=== PATIENT | male | born 1945 | race Caucasian/White ===

== ENCOUNTER 2017-03-29 13:25 | Day surgery (SDC) | payer MEDICARE, OTHER ==
--- NOTE | 2017-03-29 12:21 | HISTORY & PHYSICAL EXAMINATION ---
HPI - History of Present Illness HPI Comment/Other: Visit Type: Initial Consult History of Present Illness: Pt is here for a Colonoscopy consult- first one. ...................................................................MILLICENT Stephen January 12, 2017 9:39 AM Patient is here for screening colonoscopy. Has history of brain tumor, status post resection and is on multiple anti-siezure medications. Current Meds: LISINOPRIL 10 MG TABS (LISINOPRIL) Take one tablet by mouth daily FLOMAX 0.4 MG CAPS (TAMSULOSIN HCL) Take one capsule by mouth daily for urinary frequency METOPROLOL SUCCINATE ER 25 MG [id number] (METOPROLOL SUCCINATE) Take one half tablet by mouth in the morning and one half tablet by mouth in afternoon METFORMIN HCL 500 MG TABS (METFORMIN HCL) Take two tablets by mouth twice daily GLUCOTROL XL 2.5 MG TB24 (GLIPIZIDE) Take one tablet by mouth every day TOPAMAX 100 MG TABS (TOPIRAMATE) Take one tablet by mouth twice daily LAMICTAL 100 MG TABS (LAMOTRIGINE) Take two tablets by mouth twice daily DILANTIN 100 MG CAPS (PHENYTOIN SODIUM EXTENDED) Take two capsules by mouth in the morning and three capsules by mouth at bedtime LORAZEPAM 1 MG TABS (LORAZEPAM) Take one tablet by mouth daily as needed for seizure KEPPRA 500 MG TABS (LEVETIRACETAM) Take two tablets by mouth twice daily LOVASTATIN 40 MG TABS (LOVASTATIN) Take one tablet by mouth at bedtime ASPIRIN EC 81 MG TBEC (ASPIRIN) Take one tablet by mouth daily JANA CONTOUR TEST STRP (GLUCOSE BLOOD) For use with glucose testing once daily Allergies: Past Medical History: Reviewed history from 03/29/2016 and no changes required: NKDA Malignant glioblastoma, 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 DM CAD Seizure d/o Past Surgical History: Reviewed history from 01/04/2011 and no changes required: Craniotomy for partial removal of brain tumor followed by radiation. Family History Summary: Reviewed history Last on 09/03/2015 and no changes required:01/12/2017 Father (chelle.) - Has a father - Entered On: 08/07/2014 Mother (chelle.) - Has a mother - Entered On: 08/07/2014 Mother (chelle.) - Has Family History of Other Cancer - bone CA - Entered On: 01/12 Father (chelle.) - Has Family History of Other Medical Problems - CHF - Entered On : 01/12/2017 Risk Factors: Smoked Tobacco Use: Never smoker Drug use: no Alcohol use: no Exercise: no Review of Systems See HPI Vital Signs: Problems were reviewed with the patient during this visit. Medications were reviewed with the patient during this visit. Allergies were reviewed with the patient during this visit. No known allergies. Physical Exam General: normal appearance and obese. Mouth: no deformity or lesions with good dentition Lungs: clear bilaterally to A & P Heart: regular rate and rhythm, S1, S2 without murmurs, rubs, gallops, or clicks Abdomen: bowel sounds positive; abdomen soft and non-tender without masses, organomegaly, or hernias noted Pulses: pulses normal in all 4 extremities Extremities: no clubbing, cyanosis, edema, or deformity noted with normal full range of motion of all joints Cervical Nodes: no significant adenopathy Psych: poor concentration and poor memory. Impression & Recommendations: Problem # 1: Screening for colon cancer Will proceed with colonoscopy. All questions and concerns addressed. PMH/PSH - Past Medical History Cardiovascular: positive: Hypertension, High cholesterol Respiratory: positive: None Neuro: positive: None, Seizure disorder Endocrine/Autoimmune: positive: Type 2 diabetes GI: positive: None : positive: None HEENT: positive: None Psych: positive: None Musculoskeletal: positive: None Derm: positive: None MRSA Hx?: No - Past Surgical History Neuro: positive: Craniotomy Social & Family Hx - Social History Does the pt smoke?: No Smoking Status: Never smoker Does the pt drink ETOH?: Yes ETOH Use: Beer Does the pt have substance abuse?: No - POLST Patient has POLST: Yes POLST Status: DNR Meds/Allgy - Home Medications Home Medications: Ambulatory Orders Medication Instructions Recorded Confirmed Aspirin [Aspir 81] 81 mg PO DAILY 05/18/13 03/23/17 Glipizide [Glipizide ER] 2.5 mg PO BID 05/18/13 03/23/17 Levetiracetam [Keppra] 200 mg PO BID 05/18/13 03/23/17 Lisinopril 10 mg PO DAILY 05/18/13 03/23/17 Lovastatin 40 mg PO HS 05/18/13 03/23/17 Metformin HCl [Fortamet] 1,000 mg PO BID 05/18/13 03/23/17 Phenytoin Sodium Extended 200 mg PO DAILY 05/18/13 03/23/17 [Dilantin] Topiramate [Topamax] 100 mg PO BID 05/18/13 03/23/17 lamoTRIgine [LaMICtal] 200 mg PO BID 05/18/13 03/23/17 Metoprolol Succinate 12.5 mg PO BID 03/23/17 03/23/17 Phenytoin Sodium Extended 300 mg PO QPM 03/23/17 03/23/17 Tamsulosin [Flomax] 0.4 mg PO DAILY 03/23/17 03/23/17 - Allergies Allergies/Adverse Reactions: Allergies Allergy/AdvReac Type Severity Reaction Status Date / Time No Known Drug Allergies Allergy Verified 05/18/13 19:47
[2017-03-29] MEDS ORDERED: LACTATED RINGERS 1,000 ML IV ONE (13:33)
[2017-03-29] MEDS ORDERED: PROPOFOL 200 MG/20 ML VIAL IVP ONE (15:10)
[2017-03-29] MEDS ORDERED: MIDAZOLAM 2 MG/2 ML VIAL IVP ONE (15:10)
[2017-03-29] MEDS ORDERED: LIDOCAINE-MPF 2% 5 ML VIAL IM ONE (15:10)
[2017-03-29] MEDS ORDERED: fentaNYL 100 MCG/2 ML VIAL IVP ONE (15:10)
[2017-03-29 15:57] VITALS: BP 124/72
== END 2017-03-29 13:26 | disposition home or self-care (01) ==
LOC: SDS 13:25
PROVIDERS: ATTEND Surgery
PROC: 0DBP8ZZ Excision of Rectum, Via Natural or Artificial Opening Endoscopic (ICD-10-PCS; 2017-03-29)
PROC: 0DBM8ZZ Excision of Descending Colon, Via Natural or Artificial Opening Endoscopic (ICD-10-PCS; 2017-03-29)
PROC: 0DBK8ZZ Excision of Ascending Colon, Via Natural or Artificial Opening Endoscopic (ICD-10-PCS; principal; 2017-03-29 14:45)
DX: Z12.11 Encounter for screening for malignant neoplasm of colon (principal); D12.2 Benign neoplasm of ascending colon; D12.3 Benign neoplasm of transverse colon; D12.4 Benign neoplasm of descending colon; K62.1 Rectal polyp; K64.8 Other hemorrhoids; K64.4 Residual hemorrhoidal skin tags; Z85.841 Personal history of malignant neoplasm of brain; I10 Essential (primary) hypertension; E11.9 Type 2 diabetes mellitus without complications; R56.9 Unspecified convulsions
CPT/HCPCS: 45380; J7120; 88305

== ENCOUNTER 2017-07-10 18:40 | Outpatient (CLI) | payer MEDICARE, OTHER | END 2017-07-10 18:41 | disposition critical access hospital (66) | LOC: EMS 18:40 | PROVIDERS: ATTEND Surgery | DX: S01.81XA Laceration without foreign body of other part of head, initial encounter (principal); R56.9 Unspecified convulsions; W17.89XA Other fall from one level to another, initial encounter; Y92.414 Local residential or business street as the place of occurrence of the external cause | CPT/HCPCS: A0425; A0427 ==

== ENCOUNTER 2017-07-10 18:57 | Emergency (ER) | payer MEDICARE, OTHER ==
[2017-07-10 19:31] LABS: BASOPHILS # (AUTO) 0.1 10^3/uL (0.0-0.1); BASOPHILS % (AUTO) 0.7 %; EOSINOPHILS # (AUTO) 0.2 10^3/uL (0.0-0.7); EOSINOPHILS % (AUTO) 3.2 %; HCT - HEMATOCRIT 42.1 % (42.0-52.0); HGB - HEMOGLOBIN 13.8 g/dL (14.0-18.0); LYMPHOCYTES # (AUTO) 2.1 10^3/uL (1.5-3.5); LYMPHOCYTES % (AUTO) 27.3 %; MEAN CORPUSCULAR HEMOGLOBIN 30.2 pg (27.0-31.0); MEAN CORPUSCULAR HGB CONC 32.9 g/dL (32.0-36.0); MEAN CORPUSCULAR VOLUME 91.8 fL (80.0-94.0); MEAN PLATELET VOLUME 7.5 fL (7.4-11.4); MONOCYTES # (AUTO) 0.9 10^3/uL (0.0-1.0); MONOCYTES % (AUTO) 11.3 %; NEUTROPHILS # (AUTO) 4.4 10^3/uL (1.5-6.6); NEUTROPHILS % (AUTO) 57.5 %; RED BLOOD COUNT 4.58 10^6/uL (4.70-6.10); RED CELL DISTRIBUTION WIDTH 14.5 % (12.0-15.0); UNCORRECTED WHITE BLOOD COUNT 7.6 x10^3/uL; WHITE BLOOD COUNT 7.6 x10^3/uL (4.8-10.8)
[2017-07-10 19:42] LABS: ALBUMIN/GLOBULIN RATIO 0.9 (1.0-2.2); BILIRUBIN,TOTAL 0.4 mg/dL (0.2-1.0); CALCIUM 8.9 mg/dL (8.5-10.3); CREATININE 1.3 mg/dL (0.6-1.2); POTASSIUM 4.3 mmol/L (3.5-5.0); TOTAL PROTEIN 8.1 g/dL (6.7-8.2)
--- NOTE | 2017-07-10 20:13 | CT Preliminary Report ---
Exam: CT Head W/O IMPRESSION: 1. Left forehead hematoma. 2. No acute intracranial abnormality nor bleed. [facility] SITE ID: [id number]
--- NOTE | 2017-07-10 20:20 | CT Preliminary Report ---
Exam: CT Cervical Spine W/O IMPRESSION: 1. No acute bony abnormality. 2. Correlate clinically to determine if further evaluation of the nonspecific 4 cm left thyroid lesio n with thyroid ultrasound indicated. [facility] SITE ID: [id number]
--- NOTE | 2017-07-10 20:23 | CT Report ---
EXAM: CT HEAD EXAM DATE: 07/10/2017 07:45 PM. CLINICAL HISTORY: Remote brain tumor resection. Possible seizure activity. Head trauma. COMPARISON: 05/27/2014. TECHNIQUE: Multiaxial CT images were obtained from the foramen magnum to the vertex. IV contrast: Non e. Reformats: Coronal. In accordance with CT protocol optimization, one or more of the following dose reduction techniques w ere utilized for this exam: automated exposure control, adjustment of mA and/or KV based on patient s ize, or use of iterative reconstructive technique. FINDINGS: Parenchyma: No intra-axial blood products. 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 Remote left frontoparietal craniotomy. Old small vascular insult inferior aspect right cerebellar hemisphere. Extraaxial Spaces: Normal for age. No subdural or epidural collections identified. Ventricles: Compensatory dilatation left lateral ventricle. Stable 3 mm right to left supratentorial midline shift. No inferior transtentorial herniation. No intraventricular blood products. Sinuses: Imaged paranasal sinuses, orbits, and mastoids show no significant abnormality. Bones: Remote large caliber left frontal parietal craniotomy. Other: Diffuse chronic microangiopathic white matter changes are evident. 8 mm thick subgaleal hematoma over a 3 cm diameter left forehead scalp. IMPRESSION: 1. Left forehead hematoma. 2. No acute intracranial abnormality nor bleed. [facility] Referring Provider Line: [phone] SITE ID: [id number]
--- NOTE | 2017-07-10 20:23 | XRAY Preliminary Report ---
Exam: XR Hand 2 View RT IMPRESSION: No acute bony abnormality. [facility] SITE ID: [id number]
--- NOTE | 2017-07-10 20:26 | XRAY Preliminary Report ---
Exam: XR Chest 1 View IMPRESSION: Probable infiltrate or mass left midlung. Recommend further attention to this region with a repeat portable study when the patient is stabilized and able to be taken off the backboard. [facility] SITE ID: [id number]
--- NOTE | 2017-07-10 20:29 | XRAY Report ---
EXAM: RIGHT HAND RADIOGRAPHY EXAM DATE: 07/10/2017 07:39 PM. CLINICAL HISTORY: Pain after fall. Possible seizure activity. COMPARISON: None. TECHNIQUE: 2 views. FINDINGS: Bones: Old ununited fracture involving the central aspect of the ulnar styloid process, with 2 mm dis traction. Trabecular and cortical patterns are otherwise intact. Joints: Normal. No subluxations. Soft Tissues: Normal. No soft tissue swelling. IMPRESSION: No acute bony abnormality. [facility] Referring Provider Line: [phone] SITE ID: [id number]
--- NOTE | 2017-07-10 20:29 | CT Report ---
EXAM: CT CERVICAL SPINE WITHOUT CONTRAST DATE: 07/10/2017 07:44 PM HISTORY: Remote brain tumor resection. Possible seizure activity. Fall with left forehead trauma. Alt ered mental status. Headache. Neck pain. COMPARISONS: None. TECHNIQUE: Thin-section axial images were acquired of the cervical spine without contrast. Post-proce ssing: Coronal and sagittal reformats. Other: None. In accordance with CT protocol optimization, one or more of the following dose reduction techniques w ere utilized for this exam: automated exposure control, adjustment of mA and/or KV based on patient s ize, or use of iterative reconstructive technique. FINDINGS: Alignment: Normal. No scoliosis or spondylolisthesis. Bones: No fracture or bone lesion. Interspace Levels/Facets: Multilevel mild degenerative changes throughout the cervical spine, less than expected for age. Greatest degree of central spinal canal stenosis is borderline at the C4-C5 level. Multilevel mild to marked bony neural foraminal compromise. Musculature: Normal. No fatty atrophy. Other: 4 cm nonspecific low-density lesion within the left lobe of the thyroid. 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 Postoperative changes left cerebral hemisphere partially visualized. IMPRESSION: 1. No acute bony abnormality. 2. Correlate clinically to determine if further evaluation of the nonspecific 4 cm left thyroid lesio n with thyroid ultrasound indicated. [facility] Referring Provider Line: [phone] SITE ID: [id number]
--- NOTE | 2017-07-10 20:30 | XRAY Report ---
EXAM: CHEST RADIOGRAPHY EXAM DATE: 07/10/2017 07:39 PM. CLINICAL HISTORY: Fall. Possible seizure activity. Altered mental status. Remote resection of a brain tumor. COMPARISON: 12/29/2010.. TECHNIQUE: 1 view. FINDINGS: Lungs/Pleura: Density or infiltrate involving the mid third left lung. Extensive overlying stabilizat ion artifacts. Right lung is clear. Normal lung volumes. No effusion, vascular congestion or pneumoth orax. Mediastinum: Within exam limitations, cardiomediastinal contour is normal. Other: None. IMPRESSION: Probable infiltrate or mass left midlung. Recommend further attention to this region with a repeat portable study when the patient is stabilized and able to be taken off the backboard. [facility] Referring Provider Line: [phone] SITE ID: [id number]
[2017-07-10 20:57] LABS: BILIRUBIN,URINE NEGATIVE (NEGATIVE)
[2017-07-10] MEDS ORDERED: PHENYTOIN INJ 500 MG in SODIUM CHLORIDE 0.9% 100ML 100 ML IV STA (21:00)
[2017-07-10 21:01] LABS: UA CHARGE (STRIP ONLY) YES; UR CULTURE IF IND NOT INDICATED
[2017-07-10] MEDS ORDERED: PHENYTOIN 100 MG/2 ML VIAL IVP ONE (21:10)
--- NOTE | 2017-07-10 22:03 | XRAY Preliminary Report ---
Exam: XR Chest 2 View PA/LAT IMPRESSION: Dextroscoliosis, otherwise unremarkable 2-view chest radiography. [facility] SITE ID: [id number]
--- NOTE | 2017-07-10 22:05 | XRAY Report ---
EXAM: CHEST RADIOGRAPHY EXAM DATE: 07/10/2017 09:49 PM. CLINICAL HISTORY: Left midlung mass/infiltrate suspected on AP supine film. COMPARISON: Today at 1938. TECHNIQUE: 2 views. FINDINGS: Lungs/Pleura: No focal opacities evident. No pleural effusion. No pneumothorax. Normal volumes. Mediastinum: Heart and mediastinal contours are unremarkable. Other: Dextroscoliosis. No focal bony abnormality identified. IMPRESSION: Dextroscoliosis, otherwise unremarkable 2-view chest radiography. [facility] Referring Provider Line: [phone] SITE ID: [id number]
[2017-07-10] MEDS ORDERED: BUFFERED LIDOCAINE 10 ML SYRINGE SUBQ STA (22:09)
[2017-07-10] MEDS ORDERED: BUFFERED LIDOCAINE 10 ML SYRINGE ONE (22:32)
--- NOTE | 2017-07-10 22:40 | ED Physician Documentation ---
History of Present Illness - Stated complaint Stated Complaint: SEIZURE - Chief complaint Chief Complaint: Laceration - History obtained from History obtained from: Patient - Additonal information Additional information: Patient is a 71-year-old male with a history of seizure disorder on Lamictal, Keppra, and Dilantin. The seizure as a consequence of a benign tumor removed 10 years ago. Other than the seizures in the brain tumor he has a history of diabetes and is on metformin. He presents with a complaint of a closed head injury. The patient was left alone in a car and it is unclear whether he had a seizure and fell from a car or whether he fell from a car and had a seizure. He was either knocked out or postictal afterward was transported to our facility by EMS in cervical spine and backboard precautions. Review of systems: For pertinent positive and negatives in the review of systems please see the history of present illness, otherwise all other systems have been reviewed and are negative. Dragon disclaimer: Parts of this medical record were created using voice recognition technology. Because of the inherent limitations of this system, occasional same sounding word substitutions do occur and persist despite proofreading. Please read the document for context. Review of Systems Unable to obtain: Confused PD PAST MEDICAL HISTORY - Past Medical History Past Medical History: Yes Cardiovascular: Hypertension, High cholesterol Respiratory: None Neuro: None, Seizure disorder Endocrine/Autoimmune: Type 2 diabetes GI: None : None HEENT: None Psych: None Musculoskeletal: None Derm: None - Past Surgical History Past Surgical History: Yes Neuro: Craniotomy - Present Medications Home Medications: Ambulatory Orders Medication Instructions Recorded Confirmed Glipizide [Glipizide ER] 2.5 mg PO BID 05/18/13 07/10/17 Levetiracetam [Keppra] 200 mg PO BID 05/18/13 07/10/17 Lisinopril 10 mg PO DAILY 05/18/13 07/10/17 Lovastatin 40 mg PO HS 05/18/13 07/10/17 Metformin HCl [Fortamet] 1,000 mg PO BID 05/18/13 07/10/17 Phenytoin Sodium Extended 200 mg PO DAILY 05/18/13 07/10/17 [Dilantin] lamoTRIgine [LaMICtal] 200 mg PO BID 05/18/13 07/10/17 Phenytoin Sodium Extended 300 mg PO QPM 03/23/17 07/10/17 Tamsulosin [Flomax] 0.4 mg PO DAILY 03/23/17 07/10/17 Levetiracetam [Keppra] 1,000 mg PO QPM 07/10/17 07/10/17 Lovastatin 40 mg PO DAILY 07/10/17 07/10/17 - Allergies Allergies/Adverse Reactions: Allergies Allergy/AdvReac Type Severity Reaction Status Date / Time No Known Drug Allergies Allergy Verified 07/10/17 20:17 - Social History Does the pt smoke?: No Smoking Status: Never smoker Does the pt drink ETOH?: Yes Does the pt have substance abuse?: No - Immunizations Immunizations are current?: Yes - POLST Patient has POLST: Yes POLST Status: DNR PD ED PE NORMAL - Vitals Vital signs reviewed: Yes - General General: Well developed/nourished, Other (Large habitus male lying in the bed. The patient appears either postictal or or concussed. He has his eyes open he is not speaking he is moving everything and following simple commands he does have a large frontal cephalohematoma on the left with abrasions of the forehead periorbital area and adjacent to the left nare. Eyes are equal round react light oromucosa moist TMs clear without blood no styles sign neck is restrained) - Neck Neck: Supple, no meningeal sign - Cardiac Cardiac: RRR, No murmur, No gallop, No rub - Respiratory Respiratory: No respiratory distress, Clear bilaterally - Abdomen Abdomen: Normal bowel sounds, Soft, Non tender, Non distended - Derm Derm: Normal color, Warm and dry, No rash, Other - Extremities Extremities: No deformity, No tenderness to palpate (Superficial abrasion to the dorsum of the right hand) - Neuro Neuro: Alert and oriented X 3, sales solutions representative 2-12 intact, No motor deficit, No sensory deficit - Psych Psych: Normal mood, Normal affect Results - Vitals Vitals: Vital Signs - 24 hr 07/10/17 07/10/17 07/10/17 18:59 19:12 19:40 Temperature 37.3 C Heart Rate 119 H 111 H 113 H Respiratory 24 21 14 Rate Blood Pressure 130/63 136/62 H 133/67 H O2 Saturation 88 L 95 96 07/10/17 07/10/17 07/10/17 19:52 20:05 20:23 Temperature Heart Rate 109 H 104 H 97 Respiratory 20 16 20 Rate Blood Pressure 124/62 114/72 125/67 O2 Saturation 95 95 95 07/10/17 07/10/17 21:00 22:00 Temperature Heart Rate 91 86 Respiratory 22 22 Rate Blood Pressure 126/65 127/67 O2 Saturation 97 96 Oxygen O2 Source Room air Oxygen Flow Rate 3 - Labs Labs: Laboratory Tests 07/10/17 07/10/17 07/10/17 19:20 19:20 19:20 WBC 7.6 RBC 4.58 L Hgb 13.8 L Hct 42.1 MCV 91.8 MCH 30.2 MCHC 32.9 RDW 14.5 Plt Count 239 MPV 7.5 Neut # 4.4 Lymph # 2.1 [place] # 0.9 Eos # 0.2 Baso # 0.1 Absolute Nucleated RBC 0.00 Nucleated RBCs 0.0 PT 11.0 INR 1.0 Sodium 136 Potassium 4.3 Chloride 104 Carbon Dioxide 19 L Anion Gap 13.0 BUN 22 H Creatinine 1.3 H Estimated GFR (MDRD) 55 L Glucose 158 H Calcium 8.9 Total Bilirubin 0.4 AST 26 ALT 31 Alkaline Phosphatase 70 Total Protein 8.1 Albumin 3.9 Globulin 4.2 Albumin/Globulin Ratio 0.9 L Lipase 53 H Urine Color Urine Clarity Urine pH Ur Specific [place] Urine Protein Urine Glucose (UA) Urine Ketones Urine Occult Blood Urine Nitrite Urine Bilirubin Urine Urobilinogen Ur Leukocyte Esterase Ur Microscopic Review Urine Culture Comments Phenytoin 10.1 07/10/17 20:40 WBC RBC Hgb Hct MCV MCH MCHC RDW Plt Count MPV Neut # Lymph # [place] # Eos # Baso # Absolute Nucleated RBC Nucleated RBCs PT INR Sodium Potassium Chloride Carbon Dioxide Anion Gap BUN Creatinine Estimated GFR (MDRD) Glucose Calcium Total Bilirubin AST ALT Alkaline Phosphatase Total Protein Albumin Globulin Albumin/Globulin Ratio Lipase Urine Color YELLOW Urine Clarity CLEAR Urine pH 6.0 Ur Specific [place] 1.025 Urine Protein NEGATIVE Urine Glucose (UA) NEGATIVE Urine Ketones NEGATIVE Urine Occult Blood NEGATIVE Urine Nitrite NEGATIVE Urine Bilirubin NEGATIVE Urine Urobilinogen 0.2 (NORMAL) Ur Leukocyte Esterase NEGATIVE Ur Microscopic Review NOT INDICATED Urine Culture Comments NOT INDICATED Phenytoin PD MEDICAL DECISION MAKING - ED course Complexity details: reviewed old records, reviewed results, re-evaluated patient , d/w patient ED course: Pleasant 71-year-old male with a history of a seizure disorder on 3 different anticonvulsants. We suspect he probably had a seizure and fell out of the truck sustaining a closed head injury. Initially he was altered with her was due to concussion or postictal state is unclear. He was taken emergently to CT scan and had a CT scan of his head and neck. These images do not show any evidence of any acute abnormality. A chest x-ray is also taken initially showed a nodule then repeated once his cervical spine is cleared and is negative. X-rays of his hand are normal. The patient did well clinically he woke up and was conversive and had a normal neurologic exam. He was found to be slightly low and Dilantin was given a boost dose of Dilantin intravenously. His wounds were cleansed and addressed. I did place 3 single interrupted sutures in the left forehead while there was a jagged 1.5 cm laceration. The patient tolerated the sutures without any difficulty 3 single interrupted sutures of 5-0 Vicryl were placed. The patient's doing well at this point in time will be discharged home is not on any anticoagulant medication. Disposition: To home Clinical impression: 1. Probable seizure 2. Subtherapeutic Dilantin level 3. Left forehead abrasion contusion and 1.5 cm laceration status post 3 sutures 4. Right hand abrasion
[2017-07-11 00:58] VITALS: BP 118/67
== END 2017-07-11 01:15 | disposition home or self-care (01) ==
LOC: EDUNIT# → ED 18:57
DX: S00.83XA Contusion of other part of head, initial encounter (principal); S60.221A Contusion of right hand, initial encounter; S00.81XA Abrasion of other part of head, initial encounter; W17.89XA Other fall from one level to another, initial encounter; G40.909 Epilepsy, unspecified, not intractable, without status epilepticus; E11.9 Type 2 diabetes mellitus without complications; Z79.84 Long term (current) use of oral hypoglycemic drugs; E78.00 Pure hypercholesterolemia, unspecified
CPT/HCPCS: 36415; 70450; 71010; 71020; 72125; 80053; 80185; 81001; 81003; 83690; 85025; 85610; 87086; 93005; 96365; 99284; 99285

== ENCOUNTER 2017-07-24 08:00 | Outpatient (CLI) | payer MEDICARE, OTHER ==
[2017-07-24 19:26] LABS: BILIRUBIN,TOTAL 0.5 mg/dL (0.2-1.0); BUN - BLOOD UREA NITROGEN 18 mg/dL (6-20); CALCIUM 9.3 mg/dL (8.5-10.3); CARBON DIOXIDE - CO2 25 mmol/L (21-32); CHLORIDE 104 mmol/L (101-111); CHOL/HDL RATIO 3.1 (<5.0); CHOLESTEROL 135 mg/dL; GFR - MDRD 74 (>89); GLUCOSE 112 mg/dL (70-100); HDL CHOLESTEROL 44 mg/dL; HEMOGLOBIN A1C 0.66 g/dL; LDL/HDL RATIO 1.6 (<3.6); POTASSIUM 5.1 mmol/L (3.5-5.0); SODIUM 136 mmol/L (135-145); TOTAL PROTEIN 8.4 g/dL (6.7-8.2); TRIGLYCERIDES 94 mg/dL; VLDL CHOLESTEROL 19 mg/dL
[2017-07-25 06:51] LABS: TEST RESULT REPORT (())
== END 2017-07-24 08:01 | disposition home or self-care (01) ==
LOC: LAB.WCP 08:00
PROVIDERS: ATTEND Physician Assistant Medical
DX: E11.9 Type 2 diabetes mellitus without complications (principal); R56.9 Unspecified convulsions
CPT/HCPCS: 36415; 80053; 80061; 80185; 81599; 83036

== ENCOUNTER 2017-10-02 11:51 | Outpatient (CLI) | payer MEDICARE, OTHER | END 2017-10-02 11:52 | disposition critical access hospital (66) | LOC: EMS 11:51 | PROVIDERS: ATTEND Surgery | DX: R56.9 Unspecified convulsions (principal) | CPT/HCPCS: A0425; A0429 ==

== ENCOUNTER 2017-10-02 12:10 | Emergency (ER) | payer MEDICARE, OTHER ==
--- NOTE | 2017-10-02 12:19 | ED Physician Documentation ---
PD HPI ALTERED MENTAL STATUS - Stated complaint Stated Complaint: AMS - History obtained from History obtained from: Patient, Family (Daughter Kelsey by phone, cell in chart, work phone is ), EMS - History of Present Illness Timing - onset: Other (He has longstanding sz D/O maintained on dilantin, keppra , lamictal after remote brain tumor removal. Had mult seizures on Thanks[place] and seen in [place], was given IV dilantin, presume for subtherapeutic level. Since then has been weak and urinating a lot. Today with poss seizure, was altered but now on arrival is without complaint, A/O x2 and joking, sounds like he is at his baseline. Per daughter dilantin level was about 6 on gi, labs done yesterday at [facility], Alysia Deshpande, results now unknown. Walks unassisted at baseline.) Review of Systems Unable to obtain: Confused PD PAST MEDICAL HISTORY - Past Medical History Cardiovascular: Hypertension, High cholesterol Respiratory: None Neuro: None, Seizure disorder Endocrine/Autoimmune: Type 2 diabetes GI: None : None HEENT: None Psych: None Musculoskeletal: None Derm: None - Past Surgical History Past Surgical History: Yes Neuro: Craniotomy - Present Medications Home Medications: Ambulatory Orders Medication Instructions Recorded Confirmed Glipizide [Glipizide ER] 2.5 mg PO BID 05/18/13 07/10/17 Levetiracetam [Keppra] 200 mg PO BID 05/18/13 07/10/17 Lisinopril 10 mg PO DAILY 05/18/13 07/10/17 Lovastatin 40 mg PO HS 05/18/13 07/10/17 Metformin HCl [Fortamet] 1,000 mg PO BID 05/18/13 07/10/17 Phenytoin Sodium Extended 200 mg PO DAILY 05/18/13 07/10/17 [Dilantin] lamoTRIgine [LaMICtal] 200 mg PO BID 05/18/13 07/10/17 Phenytoin Sodium Extended 300 mg PO QPM 03/23/17 07/10/17 Tamsulosin [Flomax] 0.4 mg PO DAILY 03/23/17 07/10/17 HYDROcod/ACETAM 5/325 [[place] 5/325] 1 - 2 ea PO Q6H PRN #15 tablet 07/10/17 Levetiracetam [Keppra] 1,000 mg PO QPM 07/10/17 07/10/17 Lovastatin 40 mg PO DAILY 07/10/17 07/10/17 - Allergies Allergies/Adverse Reactions: Allergies Allergy/AdvReac Type Severity Reaction Status Date / Time No Known Drug Allergies Allergy Verified 07/10/17 20:17 - Social History Does the pt smoke?: No Smoking Status: Never smoker Does the pt drink ETOH?: Yes Does the pt have substance abuse?: No - Family History Family history: reports: Non contributory - Immunizations Immunizations are current?: Yes - POLST Patient has POLST: Yes POLST Status: DNR PD ED PE NORMAL - Vitals Vital signs reviewed: Yes - General General: No acute distress, Other (A/O x2, ) - HEENT HEENT: PERRL, EOMI - Neck Neck: Supple, no meningeal sign, No bony TTP - Cardiac Cardiac: RRR, No murmur - Respiratory Respiratory: No respiratory distress, Clear bilaterally - Abdomen Abdomen: Normal bowel sounds, Soft, Non tender - Back Back: No CVA TTP, No spinal TTP - Derm Derm: Normal color, Warm and dry - Extremities Extremities: No edema, No calf tenderness / cord - Neuro Neuro: methods time analyst 2-12 intact, No motor deficit, No sensory deficit, Normal speech Eye Opening: Spontaneous Motor: Obeys Commands Verbal: Oriented GCS Score: 15 - Psych Psych: Normal mood, Normal affect Results - Vitals Vitals: Vital Signs - 24 hr 10/02/17 10/02/17 10/02/17 12:15 13:23 14:12 Temperature 36.5 C 36.8 C Heart Rate 69 91 86 Respiratory 21 18 14 Rate Blood Pressure 147/69 H 115/63 O2 Saturation 97 94 10/02/17 10/02/17 10/02/17 15:02 16:09 16:30 Temperature Heart Rate 103 H 93 94 Respiratory 15 18 14 Rate Blood Pressure 96/54 L 129/54 L O2 Saturation 96 98 Oxygen O2 Source Room air - EKG (time done) 1356 Rate: Rate (enter#) (98) Rhythm: NSR Ischemia: Other (diffuse hyperacute T waves, almost sine waves c/w hyperkalemia) Computer interpretation: Agree with computer - Labs Labs: Laboratory Tests 10/02/17 10/02/17 10/02/17 13:00 13:26 13:26 WBC 9.2 RBC 4.94 Hgb 14.9 Hct 44.6 MCV 90.3 MCH 30.2 MCHC 33.4 RDW 15.0 Plt Count 117 L MPV 8.2 Neut # 6.6 Lymph # 1.2 L Moca # 1.3 H Eos # 0.1 Baso # 0.0 Absolute Nucleated RBC 0.00 Nucleated RBC % 0.0 Sodium 133 L Potassium 7.9 H* Chloride 98 L Carbon Dioxide 13 L Anion Gap 22.0 H BUN 81 H* Creatinine 9.4 H* Estimated GFR (MDRD) 6 L Glucose 71 Calcium 9.3 Total Bilirubin 0.6 AST 18 ALT 22 Alkaline Phosphatase 64 Total Protein 8.5 H Albumin 3.9 Globulin 4.6 H Albumin/Globulin Ratio 0.8 L Lipase 167 H Urine Color YELLOW Urine Clarity CLEAR Urine pH 6.0 Ur Specific [place] 1.015 Urine Protein NEGATIVE Urine Glucose (UA) NEGATIVE Urine Ketones NEGATIVE Urine Occult Blood TRACE-INTA Urine Nitrite NEGATIVE Urine Bilirubin NEGATIVE Urine Urobilinogen 0.2 (NORMAL) Ur Leukocyte Esterase NEGATIVE Ur Microscopic Review NOT INDICATED Urine Culture Comments NOT INDICATED Urine Opiates Screen NEGATIVE Ur Oxycodone Screen NEGATIVE Urine Methadone Screen NEGATIVE Ur Propoxyphene Screen NEGATIVE Ur Barbiturates Screen POSITIVE H Phenytoin 20.7 Ur Tricyclics Screen NEGATIVE Ur Phencyclidine Scrn NEGATIVE Ur Amphetamine Screen NEGATIVE U Methamphetamines Scrn NEGATIVE U Benzodiazepines Scrn POSITIVE H Urine Cocaine Screen NEGATIVE U Cannabinoids Screen NEGATIVE Ethyl Alcohol < 5.0 10/02/17 10/02/17 14:20 15:26 WBC RBC Hgb Hct MCV MCH MCHC RDW Plt Count MPV Neut # Lymph # Moca # Eos # Baso # Absolute Nucleated RBC Nucleated RBC % Sodium 131 L 133 L Potassium 6.8 H* 6.3 H* Chloride 102 105 Carbon Dioxide 14 L 12 L* Anion Gap 15.0 H 16.0 H BUN 67 H 70 H Creatinine 6.4 H 7.0 H* Estimated GFR (MDRD) 9 L 8 L Glucose 218 H 183 H Calcium 8.8 8.7 Total Bilirubin AST ALT Alkaline Phosphatase Total Protein Albumin Globulin Albumin/Globulin Ratio Lipase Urine Color Urine Clarity Urine pH Ur Specific [place] Urine Protein Urine Glucose (UA) Urine Ketones Urine Occult Blood Urine Nitrite Urine Bilirubin Urine Urobilinogen Ur Leukocyte Esterase Ur Microscopic Review Urine Culture Comments Urine Opiates Screen Ur Oxycodone Screen Urine Methadone Screen Ur Propoxyphene Screen Ur Barbiturates Screen Phenytoin Ur Tricyclics Screen Ur Phencyclidine Scrn Ur Amphetamine Screen U Methamphetamines Scrn U Benzodiazepines Scrn Urine Cocaine Screen U Cannabinoids Screen Ethyl Alcohol PD MEDICAL DECISION MAKING - ED course ED course: 71-year-old gentleman with chronic neurologic problems and seizures presents with weakness and potential seizure today although not clearly reported. Per the daughter he has been having complaints of Having to pee a lot and bladder scan showed greater than 999 mL's. A Hooker was placed and initial output was 1600 mL. Labs are notable for acute renal failure with hyperkalemia. At that point therapy was begun an EKG was placed showing changes consistent with hyperkalemia. He received IV calcium, insulin, glucose, bicarb drip, and albuterol. I spoke with the daughter several times by phone, initially we tried to send him to [place] but they were full, second choice was [facility], that is where his neurologist was. Spoke with Dr. hart, the medical intensive care unit attending there at 3:25 PM he would like to see a second potassium done in lower prior to excepting the patient in transfer. This is already pending. The second potassium was much better, 6.3. Dr. hart was spoken with again and accepts in transfer, would like a third round checked. This was done and had trended up a bit to 6.8, a second round of insulin, calcium, glucose, albuterol was given. - Critical Care Time(min): 50 Time Includes: Direct patient care, Review records, Reassess patient, Document care, Coordinate care, Medical consult, Family consult for tx dec (Multiple conversations with daughter and by phone, the is available at [phone].) Departure - Departure Disposition: 02 Transfer Acute Care Hosp Clinical Impression: Hyperkalemia, Urinary obstruction ARF (acute renal failure) Qualifiers: Acute renal failure type: unspecified Qualified Code(s): N17.9 - Acute kidney failure, unspecified Condition: Critical
[2017-10-02] MEDS ORDERED: LIDOCAINE JELLY 2% 5 ML TUBE TOP ONE (12:58)
[2017-10-02 13:11] LABS: BILIRUBIN,URINE NEGATIVE (NEGATIVE)
[2017-10-02 13:12] LABS: UA CHARGE (STRIP ONLY) YES; UR CULTURE IF IND NOT INDICATED
[2017-10-02 13:32] LABS: BASOPHILS % (AUTO) 0.1 %; EOSINOPHILS # (AUTO) 0.1 10^3/uL (0.0-0.7); EOSINOPHILS % (AUTO) 0.7 %; HCT - HEMATOCRIT 44.6 % (42.0-52.0); HGB - HEMOGLOBIN 14.9 g/dL (14.0-18.0); LYMPHOCYTES # (AUTO) 1.2 10^3/uL (1.5-3.5); LYMPHOCYTES % (AUTO) 13.5 %; MEAN CORPUSCULAR HEMOGLOBIN 30.2 pg (27.0-31.0); MEAN CORPUSCULAR HGB CONC 33.4 g/dL (32.0-36.0); MEAN CORPUSCULAR VOLUME 90.3 fL (80.0-94.0); MEAN PLATELET VOLUME 8.2 fL (7.4-11.4); MONOCYTES # (AUTO) 1.3 10^3/uL (0.0-1.0); MONOCYTES % (AUTO) 14.2 %; NEUTROPHILS # (AUTO) 6.6 10^3/uL (1.5-6.6); NEUTROPHILS % (AUTO) 71.5 %; RED BLOOD COUNT 4.94 10^6/uL (4.70-6.10); UNCORRECTED WHITE BLOOD COUNT 9.2 x10^3/uL; WHITE BLOOD COUNT 9.2 x10^3/uL (4.8-10.8)
[2017-10-02 13:51] LABS: ALBUMIN/GLOBULIN RATIO 0.8 (1.0-2.2); BILIRUBIN,TOTAL 0.6 mg/dL (0.2-1.0); CALCIUM 9.3 mg/dL (8.5-10.3); CARBON DIOXIDE - CO2 13 mmol/L (21-32); CHLORIDE 98 mmol/L (101-111); GFR - MDRD 6 (>89); GLUCOSE 71 mg/dL (70-100); LIPASE 167 U/L (22-51); SODIUM 133 mmol/L (135-145); TOTAL PROTEIN 8.5 g/dL (6.7-8.2)
[2017-10-02] MEDS ORDERED: SODIUM CHLORIDE 0.9% 1,000 ML IV ONE (13:54)
[2017-10-02] MEDS ORDERED: DEXTROSE 50% ABBOJECT 25 GM/50 ML SYRINGE IVP STA ×2 (13:55→16:04)
[2017-10-02] MEDS ORDERED: CALCIUM GLUCONATE 1000 MG/10 ML VIAL IVP STA ×2 (13:55→16:04)
[2017-10-02] MEDS ORDERED: INSULIN REGULAR HUMAN 100 UNIT/1 ML 10 ML MDV IVP STA ×2 (13:55→16:04)
[2017-10-02] MEDS ORDERED: ALBUTEROL NEB 2.5 MG/3 ML INH STA (13:55)
[2017-10-02] MEDS ORDERED: SODIUM BICARBONATE 100 MEQ in DEXTROSE 5% 1,000 ML IV SCH (14:00)
[2017-10-02 14:04] LABS: BUN - BLOOD UREA NITROGEN 81 mg/dL (6-20)
[2017-10-02 14:05] LABS: CREATININE 9.4 mg/dL (0.6-1.2); POTASSIUM 7.9 mmol/L (3.5-5.0)
[2017-10-02] MEDS ORDERED: ALBUTEROL NEB 2.5 MG/3 ML INH ONE ×3 (14:07→16:30)
[2017-10-02] MEDS ORDERED: CALCIUM GLUCONATE 1000 MG/10 ML VIAL ONE ×2 (14:12→16:42)
[2017-10-02] MEDS ORDERED: DEXTROSE 50% ABBOJECT 25 GM/50 ML SYRINGE ONE ×2 (14:13→16:42)
[2017-10-02] MEDS ORDERED: INSULIN 70/30 HUMAN 100 UNIT/1 ML 10 ML MDV SUBQ ONE (14:13)
[2017-10-02] MEDS: ALBUTEROL NEB 2.5 MG/3 ML INH STA ×2 (14:17→16:27)
[2017-10-02 15:46] LABS: CALCIUM 8.7 mg/dL (8.5-10.3)
[2017-10-02 15:48] LABS: POTASSIUM 6.3 mmol/L (3.5-5.0)
[2017-10-02 16:36] LABS: CALCIUM 8.8 mg/dL (8.5-10.3); CREATININE 6.4 mg/dL (0.6-1.2); POTASSIUM 6.8 mmol/L (3.5-5.0)
[2017-10-02] MEDS ORDERED: INSULIN REGULAR HUMAN 100 UNIT/1 ML 10 ML MDV ONE (16:43)
[2017-10-02 16:55] VITALS: BP 135/50
== END 2017-10-02 17:25 | disposition short-term general hospital (02) ==
LOC: EDUNIT# → ED 12:10
DX: E87.5 Hyperkalemia (principal); N13.9 Obstructive and reflux uropathy, unspecified; N17.9 Acute kidney failure, unspecified; I10 Essential (primary) hypertension; E11.9 Type 2 diabetes mellitus without complications; E78.00 Pure hypercholesterolemia, unspecified; Z79.84 Long term (current) use of oral hypoglycemic drugs
CPT/HCPCS: 36415; 51702; 51798; 80048; 80053; 80185; 80306; 81003; 83690; 85025; 93005; 94664; 96361; 96374; 99285; 99291; G0480; J3490; J7613; 80320; 81001; 87086

== ENCOUNTER 2017-10-13 07:40 | Outpatient (CLI) | payer MEDICARE, OTHER ==
[2017-10-13 13:16] LABS: CALCIUM 9.4 mg/dL (8.5-10.3); CREATININE 1.3 mg/dL (0.6-1.2); POTASSIUM 5.4 mmol/L (3.5-5.0)
== END 2017-10-13 23:59 | disposition home or self-care (01) ==
LOC: LAB.R 07:40
DX: I10 Essential (primary) hypertension (principal)
CPT/HCPCS: 80048

== ENCOUNTER 2017-10-15 08:00 | Outpatient (CLI) | payer MEDICARE, OTHER | END 2017-10-15 08:01 | disposition home or self-care (01) | LOC: LAB.R 08:00 | DX: R56.9 Unspecified convulsions (principal) | CPT/HCPCS: 80185; 80186; 81599 ==

== ENCOUNTER 2017-11-05 08:00 | Outpatient (CLI) | payer MEDICARE, OTHER ==
[2017-11-05 11:01] LABS: BASOPHILS # (AUTO) 0.1 10^3/uL (0.0-0.1); BASOPHILS % (AUTO) 0.6 %; HGB - HEMOGLOBIN 13.5 g/dL (14.0-18.0); LYMPHOCYTES # (AUTO) 1.3 10^3/uL (1.5-3.5); LYMPHOCYTES % (AUTO) 6.4 %; MEAN PLATELET VOLUME 7.6 fL (7.4-11.4); MONOCYTES # (AUTO) 2.6 10^3/uL (0.0-1.0); MONOCYTES % (AUTO) 12.2 %; NEUTROPHILS # (AUTO) 17.2 10^3/uL (1.5-6.6); NEUTROPHILS % (AUTO) 80.8 %; PLT - PLATELET COUNT 324 10^3/uL (130-450); RED BLOOD COUNT 4.64 10^6/uL (4.70-6.10); RED CELL DISTRIBUTION WIDTH 14.9 % (12.0-15.0); WHITE BLOOD COUNT 21.2 x10^3/uL (4.8-10.8)
[2017-11-05 11:04] LABS: CREATININE 1.2 mg/dL (0.6-1.2)
[2017-11-05 11:22] LABS: PLATELET ESTIMATE, MANUAL NORMAL (130-450,000) (NORMAL); PLATELET MORPHOLOGY NORMAL APPEARANCE (NORMAL); RBC MORPHOLOGY (MULTIPLE) NORMAL APPEARANCE (NORMAL)
== END 2017-11-05 08:01 | disposition home or self-care (01) ==
LOC: LAB.R 08:00
DX: I25.10 Atherosclerotic heart disease of native coronary artery without angina pectoris (principal); I10 Essential (primary) hypertension; J10.1 Influenza due to other identified influenza virus with other respiratory manifestations; N39.0 Urinary tract infection, site not specified
CPT/HCPCS: 80048; 81001; 81003; 85025; 87086; 87275; 87276

== ENCOUNTER 2017-11-05 17:16 | Outpatient (CLI) | payer MEDICARE, OTHER | END 2017-11-05 17:17 | disposition critical access hospital (66) | LOC: EMS 17:16 | PROVIDERS: ATTEND Surgery | DX: R46.89 Other symptoms and signs involving appearance and behavior (principal) | CPT/HCPCS: A0425; A0429 ==

== ENCOUNTER 2017-11-05 17:34 | Inpatient (IN) | payer MEDICARE, OTHER ==
[2017-11-05] MEDS ORDERED: LACTATED RINGERS 1,000 ML IV STA (17:43)
[2017-11-05] MEDS ORDERED: SODIUM CHLORIDE 0.9% 1,000 ML IV ONE (17:43)
--- NOTE | 2017-11-05 17:50 | ED Physician Documentation ---
PD HPI FEVER - Stated complaint Stated Complaint: FEVER - History obtained from History obtained from: Patient, EMS - History of Present Illness Timing - onset: Other (He is a resident of [facility], he has a long- standing seizure disorder and a brain tumor. He was sent in because he had a fever today. He did outpatient labs notable for a white count 21,000. Flu is negative. He has a Hooker in place because of recent urinary retention. He is an unreliable historian due to chronic altered mental status.) Review of Systems Unable to obtain: Confused PD PAST MEDICAL HISTORY - Past Medical History Cardiovascular: Hypertension, High cholesterol Respiratory: None Neuro: None, Seizure disorder Endocrine/Autoimmune: Type 2 diabetes GI: None : None HEENT: None Psych: None Musculoskeletal: None Derm: None - Past Surgical History Past Surgical History: Yes Neuro: Craniotomy - Present Medications Home Medications: Ambulatory Orders Medication Instructions Recorded Confirmed Glipizide [Glipizide ER] 2.5 mg PO BID 05/18/13 07/10/17 Levetiracetam [Keppra] 200 mg PO BID 05/18/13 07/10/17 Lisinopril 10 mg PO DAILY 05/18/13 07/10/17 Lovastatin 40 mg PO HS 05/18/13 07/10/17 Metformin HCl [Fortamet] 1,000 mg PO BID 05/18/13 07/10/17 Phenytoin Sodium Extended 200 mg PO DAILY 05/18/13 07/10/17 [Dilantin] lamoTRIgine [LaMICtal] 200 mg PO BID 05/18/13 07/10/17 Phenytoin Sodium Extended 300 mg PO QPM 03/23/17 07/10/17 Tamsulosin [Flomax] 0.4 mg PO DAILY 03/23/17 07/10/17 HYDROcod/ACETAM 5/325 [[place] 5/325] 1 - 2 ea PO Q6H PRN #15 tablet 07/10/17 Levetiracetam [Keppra] 1,000 mg PO QPM 07/10/17 07/10/17 Lovastatin 40 mg PO DAILY 07/10/17 07/10/17 - Allergies Allergies/Adverse Reactions: Allergies Allergy/AdvReac Type Severity Reaction Status Date / Time No Known Drug Allergies Allergy Verified 01/01/18 18:09 - Social History Does the pt smoke?: No Smoking Status: Never smoker Does the pt drink ETOH?: Yes Does the pt have substance abuse?: No - Immunizations Immunizations are current?: Yes - POLST Patient has POLST: Yes POLST Status: DNR PD ED PE NORMAL - Vitals Vital signs reviewed: Yes - General General: Other (Alert and pleasant, does not know the date or year or why he is here.) - HEENT HEENT: Other (Bad teeth, probably from Dilantin) - Cardiac Cardiac: RRR, No murmur - Respiratory Respiratory: No respiratory distress, Clear bilaterally - Abdomen Abdomen: Normal bowel sounds, Soft, Non tender - Extremities Extremities: No deformity, No tenderness to palpate, No edema, No calf tenderness / cord - Neuro Neuro: community relations liaison 2-12 intact Eye Opening: Spontaneous Motor: Obeys Commands Verbal: Oriented GCS Score: 15 - Psych Psych: Normal mood, Normal affect Results - Vitals Vitals: Vital Signs - 24 hr 11/05/17 17:34 Temperature 36.6 C Heart Rate 96 Respiratory 20 Rate Blood Pressure 83/53 L O2 Saturation 98 Oxygen O2 Source Room air - Labs Labs: Laboratory Tests 11/05/17 11/05/17 11/05/17 17:50 17:53 18:10 Lactic Acid 1.5 Urine Color YELLOW Urine Clarity HAZY Urine pH 5.5 Ur Specific [place] >=1.030 H Urine Protein 100 H Urine Glucose (UA) NEGATIVE Urine Ketones TRACE Urine Occult Blood MODERATE H Urine Nitrite NEGATIVE Urine Bilirubin NEGATIVE Urine Urobilinogen 1 (NORMAL) Ur Leukocyte Esterase MODERATE H Ur Microscopic Review INDICATED Urine Culture Comments Not Reportable Phenytoin 9.6 PD MEDICAL DECISION MAKING - ED course ED course: 71yo male with UTI and hypotension. Given IVF and rocephin/levaquin. Lactate reassuring Spoke with daughter by phone who agrees with POC. Agrees with full code. Departure - Departure Disposition: 66 [facility] DC/Xfer Clinical Impression: UTI (urinary tract infection) Qualifiers: Urinary tract infection type: catheter-associated UTI Indwelling urinary catheter type: indwelling urethral catheter Encounter type: initial encounter Qualified Code(s): T83.511A - Infection and inflammatory reaction due to indwelling urethral catheter, initial encounter; N39.0 - Urinary tract infection , site not specified; N39.0 - Urinary tract infection, site not specified Sepsis Qualifiers: Sepsis type: sepsis due to unspecified organism Qualified Code(s): A41.9 - Sepsis, unspecified organism Condition: Serious
[2017-11-05 18:34] LABS: GLUCOSE, URINE (UA) NEGATIVE (NEGATIVE); KETONES,URINE (UA) TRACE mg/dL (NEGATIVE); LEUKOCYTE ESTERASE, URINE MODERATE (NEGATIVE); NITRITE,URINE NEGATIVE (NEGATIVE); OCCULT BLOOD,URINE MODERATE (NEGATIVE); PH,URINE 5.5 PH (5.0-7.5); PROTEIN,URINE 100 mg/dL (NEGATIVE); UROBILINOGEN,URINE 1 (NORMAL) E.U./dL (NORMAL)
[2017-11-05 18:39] LABS: CLARITY,URINE HAZY (CLEAR)
[2017-11-05 18:40] LABS: BILIRUBIN,URINE NEGATIVE (NEGATIVE); ICTOTEST,URINE NEGATIVE
[2017-11-05] MEDS ORDERED: cefTRIAXone 1 GM in SODIUM CHLORIDE 0.9% MINIBAG 100 ML IV STA (18:44)
[2017-11-05] MEDS ORDERED: CIPROFLOXACIN 400 MG/200 ML 200 ML IV ONE (18:44)
[2017-11-05 18:46] LABS: SQUAMOUS EPITHELIAL CELL,UR NONE SEEN (<= Few)
--- NOTE | 2017-11-05 18:46 | XRAY Report ---
EXAM: CHEST RADIOGRAPHY EXAM DATE: 11/05/2017 06:21 PM. CLINICAL HISTORY: Fever. COMPARISON: 07/10/2017. TECHNIQUE: 1 view. FINDINGS: Lungs/Pleura: There are bilateral interstitial densities and peripheral reticular densities which senait ear without significant change. No consolidation. Negative for pneumothorax. Lung volumes are low. Mediastinum: Within exam limitations, the cardiomediastinal contour is normal. Other: None. IMPRESSION: Negative for acute focal pneumonia. Interstitial densities unchanged. [facility] Referring Provider Line: [phone] SITE ID: [id number]
[2017-11-05 18:47] LABS: BACTERIA,URINE None Seen /HPF (None Seen); CASTS, URINE 3-5 Fine Granular /LPF
[2017-11-05] MEDS ORDERED: ONDANSETRON 4 MG/2 ML VIAL IVP PRN (19:36)
[2017-11-05] MEDS ORDERED: ACETAMINOPHEN 325 MG TABLET PO PRN (19:36)
[2017-11-05] MEDS ORDERED: ONDANSETRON ODT 4 MG TABLET TL PRN (19:36)
[2017-11-05] MEDS ORDERED: HYDROcod/ACETAM 5/325 MG TABLET PO PRN (19:45)
[2017-11-05 20:18] LABS: HB2 TOTAL 13.6 g/dL; HEMOGLOBIN A1C 0.76 g/dL; HEMOGLOBIN A1C % 7.3 % (4.6-6.2)
--- NOTE | 2017-11-05 20:38 | HISTORY & PHYSICAL EXAMINATION ---
Chief Complaint - Chief Complaint Chief Complaint: [facility] resident with change in mental status and fever to 103 History of Present Illness - Admitted From Admitted From:: Emergency room - History Obtained From Records Reviewed: radha History obtained from: Nikolasgarret, Daughter, and Dr. Arango Exam Limitations: patients memory - History of Present Illness HPI Comment/Other: This is a pleasant 71-year-old white male who is a resident of [facility], a local assisted living facility.. He usually lives with his son and [id number] in [place]. In spite of 3 seizure medicines, this gentleman still has breakthrough intermittent seizures. The last one was in September on Thanksgiving. He was seen in [place] and given IV dilantin. His Neurologist is at [facility]. He then came to our ER 10/02 with urinary frequency and increased confusion in patient who is already easily confused to begin with. Found to have Creat of >9 and a K>7. He was transferred to [facility] and found to have urinary obstruction from BPH as the cause. From there he went to [facility] for physical rehab and decreased functional status. His POA and daughter describes seeing him a P[place] and he was almost at baseline. Walking around, talking, not using a cane. Didn't like to food but was progressing well and they hoped to take him back to his son and [id number]'s house soon. Yesterday he had a fever with increased confusion and WBC was done as 21K. Crenshaw is still in place. No description of pulmonary or abd complaints. No seizure. Brought in today. In the ER evaluated by Dr. Arango. Pleasant, confused man. BAD teeth. GCS of 15. No lung or abd findings. Feverish and BP 83/ 53. UA with proteinuria, hematuria, pyuria and (+) jose ase. No bacteria seen but culture will be done. To be admitted for sepsis with UTI. History - Past Medical History Cardiovascular: reports: Hypertension, High cholesterol, IA (NSTEMI: Troponin 3.46 with 05/2013 eval in ER for seizure. ECHO with LVEF 40%, moderate global hypokinesis of LV. OUtpt stress test and Plavix recommended. ) Respiratory: reports: None Neuro: reports: Seizure disorder (Glioblastoma multiforme with surgery ~2004 and subsequent hard to control seizures even on 3 meds. ) Endocrine/Autoimmune: reports: Type 2 diabetes GI: reports: Colon polyps (6 with 3 tubular adenomas and 3 hyperplastic on Cscope 03/2016) : reports: Benign prostate hypertrophy (seen in ER 10/02/2017 for AMS w Creat 9.4 and K 7.9. Transferred and found to have urinary obstruciton.) HEENT: reports: None Psych: reports: None Musculoskeletal: reports: None Derm: reports: None MRSA Hx?: No Other Past Medical History: brain cancer - Past Surgical History General: reports: Colonoscopy Neuro: reports: Craniotomy - Family & Social History Family History Comment/Other: Mom is and had ?bone cancer Dad is and had CHF Siblings Children Living arrangement: care home (since 09/2017 temporarily) Living Situation: With family (when he is not in SNF. ) Social History Notes: Born in [place]. Served 2 years in [employer]. 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 lives in SNF because she has no hips from infection. She has lived there for 2 years. He was never a smoker and only tried it once and no hx of alcohol abuse. Went to Live at SNF after his hopsitalization at [facility] 09/2017. Was up and walking around.Normally doesn' t need a cane. Usually independent ADL's. Daughter is POA and takes care of finances, and he can'tdrive. Uses paratransit. Seen 10/29 and pale. was eating. He ususally lives in [place] with son and Daughter in law and the plan is for him to return there once he has returned to his functional baseline. - Substance History Use: Uses substance without health or social issues: NONE Abuse: Recurrent use of substance despite neg consequences: NONE Dependence: Experiences withdrawal or developed tolerances: NONE - POLST Patient has POLST: No POLST Status: Full Code Meds/Allgy - Home Medications Home Medications: Ambulatory Orders Medication Instructions Recorded Confirmed Glipizide [Glipizide ER] 2.5 mg PO BID 05/18/13 07/10/17 Lisinopril 10 mg PO DAILY 05/18/13 07/10/17 Lovastatin 40 mg PO HS 05/18/13 07/10/17 Metformin HCl [Fortamet] 1,000 mg PO BID 05/18/13 07/10/17 Phenytoin Sodium Extended 200 mg PO DAILY 05/18/13 07/10/17 [Dilantin] lamoTRIgine [LaMICtal] 200 mg PO BID 05/18/13 07/10/17 Phenytoin Sodium Extended 300 mg PO QPM 03/23/17 07/10/17 Tamsulosin [Flomax] 0.4 mg PO DAILY 03/23/17 07/10/17 HYDROcod/ACETAM 5/325 [[place] 5/325] 1 - 2 ea PO Q6H PRN #15 tablet 07/10/17 Levetiracetam [Keppra] 1,000 mg PO QPM 07/10/17 07/10/17 Lovastatin 40 mg PO DAILY 07/10/17 07/10/17 - Allergies Allergies/Adverse Reactions: Allergies Allergy/AdvReac Type Severity Reaction Status Date / Time No Known Drug Allergies Allergy Verified 11/05/17 18:09 Review of Systems - Constitutional Constitutional: reports: Fever, Chills - Neurological Neurological: reports: Memory problems (from brain tumor surgical resection), Pre-existing deficit, Abnormal gait (from surgical resection of tumor) - All Other Systems All Other Systems: reports: Other (we can't get full ROS since he is more confused than usual and can't track questions much less ansers.) Exam - Vital Signs Reviewed Vital Signs: Yes Vital Signs: Selected Entries 11/05/17 11/05/17 11/05/17 17:34 18:50 19:54 Temperature 36.6 C 37.7 C H Heart Rate 112 H Blood Pressure 83/53 L 109/76 123/53 L 11/05/17 20:20 Temperature 101.1 C H Heart Rate 109 H Blood Pressure - Physical Exam General Appearance: positive: No acute distress, Alert, Other (he is a WN,WD white male who speaks to me but doesn't know here he is, what day it is or even why he's here.) Eyes Bilateral: positive: PERRL, EOMI ENT: positive: Oral lesions (dry and cracked lips), Dry mucous membranes, Other (terrible teeth care with gingivitis, teeth covered in old food) Neck: positive: No JVD. negative: Lymphadenopathy (R), Lymphadenopathy (L), Stiff neck, Carotid bruit Respiratory: positive: Chest non-tender, No respiratory distress, Other (but he has tubular breath sounds). negative: Wheezes, Rales, Rhonchi Cardiovascular: positive: Regular rate & rhythm. negative: Systolic murmur, Gallop/S4, Friction rub Peripheral Pulses: positive: 1+ Abdomen: positive: Non-tender, No organomegaly, Nml bowel sounds, Other (mild diffuse distension and he jerks with my first palpation but tells me he's just ticklish) Skin: positive: Dry, Other (hot to touch, still w a fever even after abx and fluids in ER). negative: Skin rash Extremities: positive: Non-tender, Pedal edema (mild, his skin of shins with hyperpigmented splotches of ?old venous stasis), Other (right anterior knee with fading bruises) Neurologic/Psychiatric: positive: CN's nml (2-12), Motor nml (but generalized weakness, can't sit up on his own, can't roll over but can lift his arms and legs for me when I ask.), Disoriented to person, Disoriented to place, Disoriented to time, Slurred/abnml speech (speech is stuttering, can't find his words sometimes) Conclusion/Plan - Problem List (1) Sepsis Conclusion/Plan: he presented as increasing confusion on a patient with established cognitive deficits, fever, and hypotension. Source is found on UA. BP Already responding to abx and IVF. Plan: admit for sepsis IVF to continue for hypotension and he is responding already. Monitor response with lactic acid and WBC treat #2 with abx tylenol for fever Qualifiers: Sepsis type: sepsis due to unspecified organism Qualified Code(s): A41.9 - Sepsis, unspecified organism (2) UTI (urinary tract infection) Conclusion/Plan: in a male with known urinary retention, already on a crenshaw, presumed to be BPH but may be neurogenic bladder. Treatment in ER was Rocephin and levaquin (with the first for resistant bug and the second bc of prostate pathology) Plan: keep crenshaw adjust abx on basis of culture Day #1 of levaquin and rocephin Qualifiers: Urinary tract infection type: catheter-associated UTI Indwelling urinary catheter type: indwelling urethral catheter Encounter type: initial encounter Qualified Code(s): T83.511A - Infection and inflammatory reaction due to indwelling urethral catheter, initial encounter; N39.0 - Urinary tract infection , site not specified; N39.0 - Urinary tract infection, site not specified (3) Metabolic encephalopathy Conclusion/Plan: he has baseline confusion. Tonight he can't find words. Denies being in the [employer]. Can't tell me where he lives or where he is. Can't sit up or walk unassisted and he usually can. Plan: treat the infection. PT eval and Tx. (4) Cognitive and neurobehavioral dysfunction following brain injury Conclusion/Plan: dating to 2004. worse right now but will look for return to baseline. (5) Type 2 diabetes mellitus with neurologic complication, with long-term current use of insulin Conclusion/Plan: mildly uncontrolled with an A1c of 7.3%. Plan: check ac tid and hs point of care glucose withhold metformin in a patient at risk for acidosis Start Lantus 10 units add sliding scale high dose short acting insulin. Qualifiers: Diabetes mellitus complication detail: with polyneuropathy Qualified Code(s ): E11.42 - Type 2 diabetes mellitus with diabetic polyneuropathy; Z79.4 - parts counterman (current) use of insulin; Z79.4 - parts counterman (current) use of insulin; Z79.4 - assisted (current) use of insulin; Z79.4 - parts counterman (current) use of insulin (6) Medication history incomplete Conclusion/Plan: and inaccurate in [employer] [facility] [employer] [employer]. He is on metoprolol at the SNF. That will be held On today's list, the ER did not include the finasteride so that will be resumed. His topamax is not on the list and will be resumed. His dilantin doses in the ER incorrect and will be changed. (7) Full code status Conclusion/Plan: Which is what he has wanted in the past. I did ask his POA, daughter, if she understood what resuscitation meant and what the survival statistics were and how they may be applied to this already debilitated male. She was startled and felt that maybe dad shouldn't be a full code. But she has not discussed this with him or her brother. I recommend they have a family discussion when he is back to baseline and then decide of DNR or Full code then. (8) Urinary obstruction Conclusion/Plan: presumed to be from BPH since he is now on flomax and finasteride. Continue crenshaw until his Urologist clear him for removal. (9) Seizure disorder Conclusion/Plan: resume his usual meds. Check levels in am. - Lab Results Lab results reviewed: Yes - Diagnostic Imaging Results Diagnostic Imaging Results: positive: Final report reviewed (CXR with chronic interstitial changes.) Core Measures - Anticipated LOS I expect patient to be DC'd or transferred within 96 hours.: Yes - DVT/VTE - Prophylaxis VTE/DVT Device ordered at admit?: Yes
[2017-11-05] MEDS ORDERED: LEVETIRACETAM 1000 MG PO SCH (21:00)
[2017-11-05] MEDS ORDERED: levETIRAcetam 100 MG/ML 473ML BOTTLE PO SCH (21:00)
[2017-11-05] MEDS ORDERED: PHENYTOIN ER 100 MG CAPSULE PO SCH ×2 (21:00→22:01)
[2017-11-05] MEDS: SODIUM CHLORIDE 0.9% 1,000 ML IV SCH (21:01)
[2017-11-05] MEDS: INSULIN ASPART 300 UNIT/3 ML PEN SUBQ SCH (21:52)
[2017-11-05] MEDS: INSULIN GLARGINE 300 UNIT/3 ML PEN SUBQ SCH (21:53)
[2017-11-05] MEDS: lamoTRIgine 100 MG TABLET PO SCH (21:53)
[2017-11-05] MEDS: SODIUM CHLORIDE FLUSH 0.9% 10 ML SYRINGE IVP SCH (22:06)
[2017-11-05] MEDS: levETIRAcetam 250 MG TABLET PO SCH (22:17)
[2017-11-05] MEDS: TOPIRAMATE 25 MG TABLET PO SCH (22:18)
[2017-11-05] MEDS: PHENYTOIN ER 100 MG CAPSULE PO SCH (22:56)
[2017-11-05] MEDS ORDERED: FINASTERIDE 5 MG TABLET PO SCH (23:00)
[2017-11-06] MEDS: IBUPROFEN 400 MG TABLET PO SCH ×6 (00:16→23:47)
[2017-11-06] MEDS: ACETAMINOPHEN 325 MG TABLET PO SCH ×4 (04:49→20:41)
[2017-11-06 05:49] LABS: CREATININE 1.4 mg/dL (0.6-1.2); PHENYTOIN (DILANTIN) 7.9 ug/mL
[2017-11-06 05:54] LABS: BASOPHILS % (AUTO) 0.2 %; EOSINOPHILS % (AUTO) 0.4 %; HGB - HEMOGLOBIN 11.5 g/dL (14.0-18.0); MEAN CORPUSCULAR HEMOGLOBIN 28.9 pg (27.0-31.0); MEAN CORPUSCULAR HGB CONC 32.5 g/dL (32.0-36.0); MEAN CORPUSCULAR VOLUME 89.1 fL (80.0-94.0); MEAN PLATELET VOLUME 7.1 fL (7.4-11.4); MONOCYTES % (AUTO) 10.8 %; NEUTROPHILS % (AUTO) 82.6 %; PLT - PLATELET COUNT 305 10^3/uL (130-450); RED BLOOD COUNT 3.96 10^6/uL (4.70-6.10); RED CELL DISTRIBUTION WIDTH 15.5 % (12.0-15.0); WHITE BLOOD COUNT 18.5 x10^3/uL (4.8-10.8)
[2017-11-06 05:57] LABS: ABNORMAL LYMPHS % (MANUAL) 0 %
[2017-11-06] MEDS: cefTRIAXone 2 GM in SODIUM CHLORIDE 0.9% MINIBAG 100 ML IV SCH ×2 (06:29→17:39)
[2017-11-06 06:44] LABS: BAND NEUTROPHILS % (MANUAL) 12 %; DIFFERENTIAL COMMENT MANUAL DIFFERENTIAL; LYMPHOCYTES # (MANUAL) 1.5 10^3/uL (1.5-3.5); LYMPHOCYTES % (MANUAL) 8 %; NEUTROPHILS % (MANUAL) 69 %; PLATELET ESTIMATE, MANUAL NORMAL (130-450,000) (NORMAL); PLATELET MORPHOLOGY NORMAL APPEARANCE (NORMAL); RBC MORPHOLOGY (MULTIPLE) NORMAL APPEARANCE (NORMAL)
[2017-11-06] MEDS: levoFLOXacin 750 MG/150 ML 750 MG/150 ML BAG IV SCH (07:00)
[2017-11-06] MEDS ORDERED: LACTATED RINGERS 500 ML IV ONE (07:33)
[2017-11-06] MEDS ORDERED: SODIUM CHLORIDE 0.9% 500 ML IV ONE (07:52)
[2017-11-06] MEDS: INSULIN ASPART 300 UNIT/3 ML PEN SUBQ SCH ×4 (08:56→21:04)
[2017-11-06] MEDS ORDERED: LISINOPRIL 5 MG TABLET PO SCH (09:00)
[2017-11-06] MEDS ORDERED: PHENYTOIN ER 100 MG CAPSULE PO SCH (09:00)
[2017-11-06] MEDS ORDERED: TAMSULOSIN 0.4 MG CAPSULE PO SCH (09:00)
[2017-11-06] MEDS: SODIUM CHLORIDE FLUSH 0.9% 10 ML SYRINGE IVP SCH ×3 (10:41→21:04)
[2017-11-06] MEDS: SODIUM CHLORIDE 0.9% 1,000 ML IV SCH ×2 (10:41→21:15)
[2017-11-06] MEDS: levETIRAcetam 250 MG TABLET PO SCH ×2 (10:41→20:41)
[2017-11-06] MEDS: PHENYTOIN ER 100 MG CAPSULE PO SCH ×2 (10:42→20:41)
[2017-11-06] MEDS: lamoTRIgine 100 MG TABLET PO SCH ×2 (10:42→20:40)
[2017-11-06] MEDS: TOPIRAMATE 25 MG TABLET PO SCH ×2 (10:42→20:40)
[2017-11-06] MEDS: POLYETHYLENE GLYCOL 3350 17 GM PACKET PO SCH (10:42)
--- NOTE | 2017-11-06 19:23 | PROVIDER PROGRESS NOTE ---
Subjective - Prog Note Date Prog Note Date: 11/06/17 Prog Note Time: 19:22 - Subjective Pt reports feeling: Improved Subjective: Alirio appears comfortable and offers no complaints. He is warm and dry, despite hypotensive that is improving with fluid replacement. Current Medications - Current Medications Current Medications: Active Medications Acetaminophen (Tylenol) 650 mg PO Q6H [facility] Stop: 11/07/17 03:01 Last Admin: 11/06/17 17:39 Dose: 650 mg Acetaminophen/Hydrocodone Bitart ([place] 5/325) 2 tab PO Q6H PRN PRN Reason: PAIN Ceftriaxone Sodium 2 gm/ (Sodium Chloride) 100 mls @ 200 mls/hr IV Q12H [facility] Last Admin: 11/06/17 17:39 Dose: 100 mls/hr Levofloxacin (Levaquin 750 Mg/150 Ml) 750 mg in 150 mls @ 100 mls/hr IV Q24H [facility] Last Infusion: 11/06/17 09:25 Dose: Infused Sodium Chloride (Normal Saline 0.9%) 1,000 mls @ 100 mls/hr IV .Q10H [facility] Stop: 11/07/17 01:59 Last Admin: 11/06/17 10:41 Dose: 100 mls/hr Ibuprofen (Motrin) 400 mg PO Q6HR [facility] Last Admin: 11/06/17 14:54 Dose: 400 mg Insulin Aspart (Novolog) 3 - 11 unit SUBQ 0800,1200,1700,2100 JAKE PRN Reason: Protocol Last Admin: 11/06/17 17:46 Dose: 5 unit Insulin Glargine (Lantus Solostar) 10 unit SUBQ QPM [facility] Last Admin: 11/05/17 21:53 Dose: 10 unit Lamotrigine (Lamictal) 200 mg PO BID [facility] Last Admin: 11/06/17 10:42 Dose: 200 mg Levetiracetam (Keppra) 1,000 mg PO BID [facility] Last Admin: 11/06/17 10:41 Dose: 1,000 mg Ondansetron HCl (Zofran Inj) 4 mg IVP Q6HR PRN PRN Reason: Nausea / Vomiting Ondansetron HCl (Zofran Odt) 4 mg TL Q6HR PRN PRN Reason: Nausea / Vomiting Phenytoin Sodium (Dilantin) 300 mg PO DAILY [facility] Last Admin: 11/06/17 10:42 Dose: 300 mg Phenytoin Sodium (Dilantin) 400 mg PO QPM [facility] Last Admin: 11/05/17 22:56 Dose: 400 mg Polyethylene Glycol (Miralax) 17 gm PO DAILY [facility] Last Admin: 11/06/17 10:42 Dose: 17 gm Sodium Chloride (Normal Saline Flush 0.9%) 10 ml IVP PRN PRN PRN Reason: NEEDED PER PROVIDER ORDERS Sodium Chloride (Normal Saline Flush 0.9%) 10 ml IVP Q8HR [facility] Last Admin: 11/06/17 14:54 Dose: Not Given Topiramate (Topamax) 50 mg PO BID [facility] Last Admin: 11/06/17 10:42 Dose: 50 mg Glipizide [Glipizide ER] 2.5 mg PO DAILY 05/18/13 Lisinopril 10 mg PO DAILY 05/18/13 Metformin HCl [Fortamet] 1,000 mg PO BIDWM 05/18/13 Phenytoin Sodium Extended [Dilantin] 300 mg PO DAILY 05/18/13 lamoTRIgine [LaMICtal] 100 mg PO BID 05/18/13 Phenytoin Sodium Extended 400 mg PO QPM 03/23/17 Tamsulosin [Flomax] 0.4 mg PO DAILY 03/23/17 Levetiracetam [Keppra] 1,000 mg PO BID 07/10/17 Lovastatin 40 mg PO QPM 07/10/17 Topiramate 100 mg PO BID 11/05/17 Aspirin [Aspirin EC] 81 mg PO DAILY 11/06/17 lamoTRIgine [LaMICtal] 25 mg PO BID 11/06/17 Objective - Vital Signs/Intake & Output Reviewed Vital Signs: Yes Vital Signs: Vital Signs x48h Temp Pulse Pulse Pulse Resp BP BP 11/06/17 16:53 96 20 90/51 L 11/06/17 16:00 91 89 112/54 L 11/06/17 15:42 37.1 C 90 20 103/52 L 11/06/17 14:00 36.7 C 90 26 H 104/57 L 11/06/17 13:30 88 30 H 99/59 L BP Pulse Ox 11/06/17 16:53 96 11/06/17 16:00 101/51 L 11/06/17 15:42 96 11/06/17 14:00 99 11/06/17 13:30 100 Intake & Output: Intake & Output 11/03/17 11/04/17 11/05/17 11/06/17 23:59 23:59 23:59 23:59 Intake Total 1200 2570 Output Total 350 900 Balance 850 1670 - Objective General Appearance: positive: No acute distress, Lethargic Eyes Bilateral: positive: Normal inspection ENT: positive: ENT inspection nml, Dry mucous membranes Neck: positive: Nml inspection, Thyroid nml, No JVD Respiratory: positive: Chest non-tender, No respiratory distress, Wheezes, Rhonchi Cardiovascular: positive: No gallop, Irregularly irregular Peripheral Pulses: 2+ Radial (R), 2+ Radial (L) Abdomen: positive: No organomegaly, Nml bowel sounds, No distention Back: positive: Nml inspection Skin: positive: No rash, Warm, Dry, Pallor Extremities: positive: Non-tender, Pedal edema Neurologic/Psychiatric: positive: Disoriented to time, Weakness, Sensory loss, Other (baseline AMS) Reflexes: Bicep (R): 2+, Bicep (L): 2+ - Lab Results Fish Bones: 11/06/17 05:28 11/06/17 05:28 Other Labs: Lab Results x24hrs 11/06/17 11/06/17 11/06/17 Range/Units 16:52 13:46 07:58 WBC (4.8-10.8) x10^3/uL RBC (4.70-6.10) 10^6/uL Hgb (14.0-18.0) g/dL Hct (42.0-52.0) % MCV (80.0-94.0) fL MCH (27.0-31.0) pg MCHC (32.0-36.0) g/dL RDW (12.0-15.0) % Plt Count (130-450) 10^3/uL MPV (7.4-11.4) fL Neut # Lymph # Peach # Eos # Baso # Absolute Nucleated RBC Total Counted Band Neuts % (Manual) (0 - 10) % Abnorm Lymph % (Manual) % Nucleated RBC % Neutrophils # (Manual) (1.5-6.6) 10^3/uL Lymphocytes # (Manual) (1.5-3.5) 10^3/uL Monocytes # (Manual) (0.0-1.0) 10^3/uL Eosinophils # (Manual) (0-0.7) 10^3/uL Basophils # (Manual) (0-0.1) 10^3/uL Differential Comment Platelet Estimate (NORMAL) Platelet Morphology (NORMAL) RBC Morph Micro Appear (NORMAL) Sodium (135-145) mmol/L Potassium (3.5-5.0) mmol/L Chloride (101-111) mmol/L Carbon Dioxide (21-32) mmol/L Anion Gap (6-13) BUN (6-20) mg/dL Creatinine (0.6-1.2) mg/dL Estimated GFR (MDRD) (>89) Glucose (70-100) mg/dL POC Whole Bld Glucose 185 H 144 H (70 - 100) mg/dL Lactic Acid (0.5-2.2) mmol/L Calcium (8.5-10.3) mg/dL Troponin I 0.09 Phenytoin ug/mL 11/06/17 11/06/17 11/06/17 Range/Units 07:21 05:28 05:28 WBC (4.8-10.8) x10^3/uL RBC (4.70-6.10) 10^6/uL Hgb (14.0-18.0) g/dL Hct (42.0-52.0) % MCV (80.0-94.0) fL MCH (27.0-31.0) pg MCHC (32.0-36.0) g/dL RDW (12.0-15.0) % Plt Count (130-450) 10^3/uL MPV (7.4-11.4) fL Neut # Lymph # [place]ach # Eos # Baso # Absolute Nucleated RBC Total Counted Band Neuts % (Manual) (0 - 10) % Abnorm Lymph % (Manual) % Nucleated RBC % Neutrophils # (Manual) (1.5-6.6) 10^3/uL Lymphocytes # (Manual) (1.5-3.5) 10^3/uL Monocytes # (Manual) (0.0-1.0) 10^3/uL Eosinophils # (Manual) (0-0.7) 10^3/uL Basophils # (Manual) (0-0.1) 10^3/uL Differential Comment Platelet Estimate (NORMAL) Platelet Morphology (NORMAL) RBC Morph Micro Appear (NORMAL) Sodium (135-145) mmol/L Potassium (3.5-5.0) mmol/L Chloride (101-111) mmol/L Carbon Dioxide (21-32) mmol/L Anion Gap (6-13) BUN (6-20) mg/dL Creatinine (0.6-1.2) mg/dL Estimated GFR (MDRD) (>89) Glucose (70-100) mg/dL POC Whole Bld Glucose 136 H (70 - 100) mg/dL Lactic Acid 1.0 (0.5-2.2) mmol/L Calcium (8.5-10.3) mg/dL Troponin I Cancelled Phenytoin ug/mL 11/06/17 11/06/17 11/05/17 Range/Units 05:28 05:28 20:50 WBC 18.5 H (4.8-10.8) x10^3/uL RBC 3.96 L (4.70-6.10) 10^6/uL Hgb 11.5 L (14.0-18.0) g/dL Hct 35.3 L (42.0-52.0) % MCV 89.1 (80.0-94.0) fL MCH 28.9 (27.0-31.0) pg MCHC 32.5 (32.0-36.0) g/dL RDW 15.5 H (12.0-15.0) % Plt Count 305 (130-450) 10^3/uL MPV 7.1 L (7.4-11.4) fL Neut # Not Reportable Lymph # Not Reportable Peach # Not Reportable Eos # Not Reportable Baso # Not Reportable Absolute Nucleated RBC Not Reportable Total Counted 100 Band Neuts % (Manual) 12 H (0 - 10) % Abnorm Lymph % (Manual) 0 % Nucleated RBC % Not Reportable Neutrophils # (Manual) 15.0 H (1.5-6.6) 10^3/uL Lymphocytes # (Manual) 1.5 (1.5-3.5) 10^3/uL Monocytes # (Manual) 2.0 H (0.0-1.0) 10^3/uL Eosinophils # (Manual) 0.0 (0-0.7) 10^3/uL Basophils # (Manual) 0.0 (0-0.1) 10^3/uL Differential Comment MANUAL DIFFERENTIAL Platelet Estimate NORMAL (130-450,000) (NORMAL) Platelet Morphology NORMAL APPEARANCE (NORMAL) RBC Morph Micro Appear NORMAL APPEARANCE (NORMAL) Sodium 133 L (135-145) mmol/L Potassium 3.7 (3.5-5.0) mmol/L Chloride 100 L (101-111) mmol/L Carbon Dioxide 24 (21-32) mmol/L Anion Gap 9.0 (6-13) BUN 18 (6-20) mg/dL Creatinine 1.4 H (0.6-1.2) mg/dL Estimated GFR (MDRD) 50 L (>89) Glucose 143 H (70-100) mg/dL POC Whole Bld Glucose 193 H (70 - 100) mg/dL Lactic Acid (0.5-2.2) mmol/L Calcium 8.0 L (8.5-10.3) mg/dL Troponin I Phenytoin 7.9 ug/mL - Diagnostic Imaging Diagnostic Imaging Results: positive: Prelim report reviewed, Final report reviewed Assessment/Plan - Problem List (1) Sepsis Impression: Patient presented with increasing confusion, and established cognitive deficits are chronic. He also was found to be febrile and hypotensive. Source is found on UA, sensitivites are resulted and pathogen is pseudomonas aeruginosa. Patient recieved numerous fluid boluses today. Plan: IVF to continue for hypotension, then maintenance fluid. Monitor response with lactic acid and WBC. IV antibiotics, and tylenol for fever. Qualifiers: Sepsis type: sepsis due to unspecified organism Qualified Code(s): A41.9 - Sepsis, unspecified organism (2) UTI (urinary tract infection) Impression: Patient has a known history of urinary retention. Indwelling crenshaw in place, presumed to be BPH but may be neurogenic bladder. Treatment in ER was Rocephin and levaquin (with the first for resistant pathogen and the second because of prostate pathology) Plan: Continue with indwelling crenshaw, adjust abx on basis of culture. Day #2 of levaquin and rocephin Qualifiers: Urinary tract infection type: catheter-associated UTI Indwelling urinary catheter type: indwelling urethral catheter Encounter type: initial encounter Qualified Code(s): T83.511A - Infection and inflammatory reaction due to indwelling urethral catheter, initial encounter; N39.0 - Urinary tract infection , site not specified; N39.0 - Urinary tract infection, site not specified (3) Metabolic encephalopathy Impression: Patient has baseline confusion. Today patient continued to have beyond baseline confusion and AMS. Plan: Continue to treat the infection. PT/OT to evaluate. 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 It has been noted as worsening for this hospital stay. Plan: Continue to monitor. (5) Type 2 diabetes mellitus with neurologic complication, with long-term current use of insulin Impression: Patient's DM is noted to be mildly uncontrolled with an A1c of 7.3%. Plan: We will continue to check ac tid and hs point of care glucose. Metformin is on hold while patient is in our care as per protocol. Start Lantus 10 units add sliding scale high dose short acting insulin. 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
[2017-11-06] MEDS: INSULIN GLARGINE 300 UNIT/3 ML PEN SUBQ SCH (21:03)
[2017-11-07] MEDS: ACETAMINOPHEN 325 MG TABLET PO SCH (03:02)
[2017-11-07] MEDS: cefTRIAXone 2 GM in SODIUM CHLORIDE 0.9% MINIBAG 100 ML IV SCH (05:30)
[2017-11-07] MEDS: IBUPROFEN 400 MG TABLET PO SCH ×4 (06:08→23:37)
[2017-11-07] MEDS: SODIUM CHLORIDE FLUSH 0.9% 10 ML SYRINGE IVP PRN (06:08)
[2017-11-07] MEDS: SODIUM CHLORIDE FLUSH 0.9% 10 ML SYRINGE IVP SCH ×3 (06:08→20:46)
[2017-11-07] MEDS: levoFLOXacin 750 MG/150 ML 750 MG/150 ML BAG IV SCH (06:09)
--- NOTE | 2017-11-07 08:30 | PROVIDER PROGRESS NOTE ---
Subjective - Prog Note Date Prog Note Date: 11/07/17 Prog Note Time: 08:30 - Subjective Pt reports feeling: Improved Subjective: Alirio does not remember events of yesterday and is conversational. He denies SOB , chest pain, N/V or a new cough. Current Medications - Current Medications Current Medications: Active Medications Acetaminophen/Hydrocodone Bitart ([place] 5/325) 2 tab PO Q6H PRN PRN Reason: PAIN Ciprofloxacin (Cipro 400 Mg/200 Ml) 200 mls @ 200 mls/hr IV Q12H [facility] Ibuprofen (Motrin) 400 mg PO Q6HR [facility] Last Admin: 11/07/17 13:05 Dose: 400 mg Insulin Aspart (Novolog) 3 - 11 unit SUBQ 0800,1200,1700,2100 JAKE PRN Reason: Protocol Last Admin: 11/07/17 13:05 Dose: 5 unit Insulin Glargine (Lantus Solostar) 20 unit SUBQ QPM [facility] Lamotrigine (Lamictal) 200 mg PO BID [facility] Last Admin: 11/07/17 09:12 Dose: 200 mg Levetiracetam (Keppra) 1,000 mg PO BID [facility] Last Admin: 11/07/17 09:11 Dose: 1,000 mg Ondansetron HCl (Zofran Inj) 4 mg IVP Q6HR PRN PRN Reason: Nausea / Vomiting Ondansetron HCl (Zofran Odt) 4 mg TL Q6HR PRN PRN Reason: Nausea / Vomiting Phenytoin Sodium (Dilantin) 300 mg PO DAILY [facility] Last Admin: 11/07/17 09:11 Dose: 300 mg Phenytoin Sodium (Dilantin) 400 mg PO QPM [facility] Last Admin: 11/06/17 20:41 Dose: 400 mg Polyethylene Glycol (Miralax) 17 gm PO DAILY [facility] Last Admin: 11/07/17 09:12 Dose: 17 gm Sodium Chloride (Normal Saline Flush 0.9%) 10 ml IVP PRN PRN PRN Reason: NEEDED PER PROVIDER ORDERS Last Admin: 11/07/17 06:08 Dose: 10 ml Sodium Chloride (Normal Saline Flush 0.9%) 10 ml IVP Q8HR [facility] Last Admin: 11/07/17 13:05 Dose: 10 ml Topiramate (Topamax) 50 mg PO BID [facility] Last Admin: 11/07/17 09:11 Dose: 50 mg Glipizide [Glipizide ER] 2.5 mg PO DAILY 05/18/13 Metformin HCl [Fortamet] 1,000 mg PO BIDWM 05/18/13 Phenytoin Sodium Extended [Dilantin] 300 mg PO DAILY 05/18/13 lamoTRIgine [LaMICtal] 200 mg PO BID 05/18/13 Phenytoin Sodium Extended 400 mg PO QPM 03/23/17 Tamsulosin [Flomax] 0.4 mg PO DAILY 03/23/17 Levetiracetam [Keppra] 1,000 mg PO BID 07/10/17 Lovastatin 40 mg PO QPM 07/10/17 Topiramate 50 mg PO BID 11/05/17 Aspirin [Aspirin EC] 81 mg PO DAILY 11/06/17 lamoTRIgine [LaMICtal] 25 mg PO BID 11/06/17 Acetaminophen 325 mg PO Q4H PRN 11/07/17 Calcium Carbonate/Vitamin D3 [Calcium 500-Vit D3 200 Tablet] 1 tab PO DAILY 01/20 Finasteride 5 mg PO DAILY 11/07/17 Metoprolol Succinate 25 mg PO DAILY 11/07/17 Senna [Senokot] 17.2 mg PO DAILY PRN 11/07/17 Objective - Vital Signs/Intake & Output Reviewed Vital Signs: Yes Vital Signs: Vital Signs x48h Temp Pulse Resp BP Pulse Ox 11/07/17 07:20 36.6 C 89 20 105/64 97 11/07/17 06:00 36.5 C 79 18 102/57 L 94 Intake & Output: Intake & Output 11/04/17 11/05/17 11/06/17 11/07/17 23:59 23:59 23:59 23:59 Intake Total 1200 3970 1080 Output Total 489 843 8227 Balance 850 3070 -1020 - Objective General Appearance: positive: No acute distress, Alert Eyes Bilateral: positive: Normal inspection, PERRL ENT: positive: ENT inspection nml, Pharynx nml, No signs of dehydration Neck: positive: Nml inspection, Thyroid nml, No JVD, Trachea midline Respiratory: positive: Chest non-tender, No respiratory distress, Wheezes Cardiovascular: positive: Regular rate & rhythm, No gallop, Systolic murmur Peripheral Pulses: 2+ Radial (R), 2+ Radial (L) Abdomen: positive: Non-tender, No organomegaly, Nml bowel sounds, No distention , Hepatomegaly, Abnml bowel sounds Back: positive: Nml inspection Skin: positive: Color nml, No rash, Warm, Dry Extremities: positive: Non-tender, Full ROM, Nml appearance, Pedal edema Neurologic/Psychiatric: positive: Disoriented to time, Weakness, Sensory loss, Depressed mood/affect, Other (baseline cognitive delay.) Reflexes: Bicep (R): 3+, Bicep (L): 3+ - Lab Results Fish Bones: 11/07/17 09:20 11/07/17 14:15 Other Labs: Lab Results x24hrs 11/07/17 11/06/17 11/06/17 Range/Units 07:15 20:31 16:52 POC Whole Bld Glucose 198 H 181 H 185 H (70 - 100) mg/dL Troponin I 11/06/17 11/06/17 11/06/17 Range/Units 13:46 07:58 05:28 POC Whole Bld Glucose 144 H (70 - 100) mg/dL Troponin I 0.09 Cancelled - Diagnostic Imaging Diagnostic Imaging Results: positive: Final report reviewed Assessment/Plan - Problem List (1) Sepsis Impression: Patient presented with increasing confusion, and established cognitive deficits are chronic. He also was found to be febrile and hypotensive. Source is found on UA, sensitivites are resulted and pathogen is pseudomonas aeruginosa. Patient recieved numerous fluid boluses yesterday. Today lactic acid is normal at 1.1. Plan: Monitor lactic acid and WBC. IV antibiotics, and tylenol for fever. Qualifiers: Sepsis type: sepsis due to unspecified organism Qualified Code(s): A41.9 - Sepsis, unspecified organism (2) UTI (urinary tract infection) Impression: Patient has a known history of urinary retention. Indwelling crenshaw in place, presumed to be BPH but may be neurogenic bladder. Treatment in ER was Rocephin and levaquin (with the first for resistant pathogen and the second because of prostate pathology) Plan: Continue with indwelling crenshaw, adjust abx on basis of culture. Antibiotics changed to cipro IV according to sensitivities. Qualifiers: Urinary tract infection type: catheter-associated UTI Indwelling urinary catheter type: indwelling urethral catheter Encounter type: initial encounter Qualified Code(s): T83.511A - Infection and inflammatory reaction due to indwelling urethral catheter, initial encounter; N39.0 - Urinary tract infection , site not specified; N39.0 - Urinary tract infection, site not specified (3) Metabolic encephalopathy Impression: Patient has baseline confusion. Today patient continued to have beyond baseline confusion and AMS. Plan: Continue to treat the infection. PT/OT to evaluate. 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 It has been noted as worsening for this hospital stay. Plan: Continue to monitor. (5) Type 2 diabetes mellitus with neurologic complication, with long-term current use of insulin Impression: Patient's DM is noted to be mildly uncontrolled with an A1c of 7.3%. Plan: We will continue to check ac tid and hs point of care glucose. Metformin is on hold while patient is in our care as per protocol. Start Lantus 10 units, that was increased to 20 units today, and add sliding scale high dose short acting insulin. 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
[2017-11-07] MEDS: INSULIN ASPART 300 UNIT/3 ML PEN SUBQ SCH ×4 (09:10→20:52)
[2017-11-07] MEDS: TOPIRAMATE 25 MG TABLET PO SCH ×2 (09:11→20:46)
[2017-11-07] MEDS: PHENYTOIN ER 100 MG CAPSULE PO SCH ×2 (09:11→20:45)
[2017-11-07] MEDS: levETIRAcetam 250 MG TABLET PO SCH ×2 (09:11→20:45)
[2017-11-07] MEDS: lamoTRIgine 100 MG TABLET PO SCH ×2 (09:12→20:45)
[2017-11-07] MEDS: POLYETHYLENE GLYCOL 3350 17 GM PACKET PO SCH (09:12)
[2017-11-07 14:18] LABS: BASOPHILS # (AUTO) 0.1 10^3/uL (0.0-0.1); BASOPHILS % (AUTO) 0.7 %; EOSINOPHILS # (AUTO) 0.2 10^3/uL (0.0-0.7); EOSINOPHILS % (AUTO) 2.2 %; HGB - HEMOGLOBIN 11.1 g/dL (14.0-18.0); LYMPHOCYTES # (AUTO) 0.8 10^3/uL (1.5-3.5); LYMPHOCYTES % (AUTO) 9.3 %; MEAN CORPUSCULAR HGB CONC 33.3 g/dL (32.0-36.0); MEAN CORPUSCULAR VOLUME 87.1 fL (80.0-94.0); MEAN PLATELET VOLUME 8.3 fL (7.4-11.4); MONOCYTES % (AUTO) 11.6 %; NEUTROPHILS # (AUTO) 6.5 10^3/uL (1.5-6.6); NEUTROPHILS % (AUTO) 76.2 %; PLT - PLATELET COUNT 268 10^3/uL (130-450); RED BLOOD COUNT 3.82 10^6/uL (4.70-6.10); WHITE BLOOD COUNT 8.6 x10^3/uL (4.8-10.8)
[2017-11-07 14:50] LABS: ALBUMIN 2.2 g/dL (3.2-5.5); ALBUMIN/GLOBULIN RATIO 0.5 (1.0-2.2); BILIRUBIN,TOTAL 0.3 mg/dL (0.2-1.0); CALCIUM 7.8 mg/dL (8.5-10.3); MAGNESIUM 1.8 mg/dL (1.7-2.8); TOTAL PROTEIN 6.6 g/dL (6.7-8.2)
[2017-11-07] MEDS ORDERED: INSULIN GLARGINE 300 UNIT/3 ML PEN SUBQ SCH (21:00)
[2017-11-08] MEDS: SODIUM CHLORIDE FLUSH 0.9% 10 ML SYRINGE IVP PRN ×3 (05:19→23:44)
[2017-11-08] MEDS: SODIUM CHLORIDE FLUSH 0.9% 10 ML SYRINGE IVP SCH ×3 (05:19→20:32)
[2017-11-08] MEDS: IBUPROFEN 400 MG TABLET PO SCH ×4 (05:29→23:43)
[2017-11-08] MEDS: CIPROFLOXACIN 400 MG/200 ML 200 ML IV SCH ×3 (05:29→18:20)
[2017-11-08] MEDS ORDERED: SODIUM CHLORIDE FLUSH 0.9% 10 ML SYRINGE IVP PRN (05:49)
[2017-11-08 05:57] LABS: BASOPHILS % (AUTO) 0.8 %; EOSINOPHILS # (AUTO) 0.2 10^3/uL (0.0-0.7); HGB - HEMOGLOBIN 10.9 g/dL (14.0-18.0); LYMPHOCYTES # (AUTO) 0.9 10^3/uL (1.5-3.5); LYMPHOCYTES % (AUTO) 15.7 %; MEAN CORPUSCULAR HEMOGLOBIN 28.7 pg (27.0-31.0); MEAN CORPUSCULAR HGB CONC 32.4 g/dL (32.0-36.0); MEAN CORPUSCULAR VOLUME 88.5 fL (80.0-94.0); MONOCYTES # (AUTO) 0.7 10^3/uL (0.0-1.0); MONOCYTES % (AUTO) 11.7 %; NEUTROPHILS # (AUTO) 3.9 10^3/uL (1.5-6.6); NEUTROPHILS % (AUTO) 67.8 %; PLT - PLATELET COUNT 310 10^3/uL (130-450); RED CELL DISTRIBUTION WIDTH 15.1 % (12.0-15.0); WHITE BLOOD COUNT 5.8 x10^3/uL (4.8-10.8)
[2017-11-08] MEDS ORDERED: SODIUM CHLORIDE FLUSH 0.9% 10 ML SYRINGE IVP SCH (06:00)
[2017-11-08 06:13] LABS: ALBUMIN 2.3 g/dL (3.2-5.5); ALBUMIN/GLOBULIN RATIO 0.5 (1.0-2.2); BILIRUBIN,TOTAL 0.4 mg/dL (0.2-1.0); CALCIUM 8.1 mg/dL (8.5-10.3); CREATININE 0.9 mg/dL (0.6-1.2); TOTAL PROTEIN 6.6 g/dL (6.7-8.2)
[2017-11-08] MEDS: INSULIN ASPART 300 UNIT/3 ML PEN SUBQ SCH ×4 (08:31→20:42)
[2017-11-08] MEDS ORDERED: POLYETHYLENE GLYCOL 3350 17 GM PACKET PO SCH (09:00)
[2017-11-08] MEDS: lamoTRIgine 100 MG TABLET PO SCH ×2 (09:06→20:34)
[2017-11-08] MEDS: TOPIRAMATE 25 MG TABLET PO SCH ×2 (09:06→20:33)
[2017-11-08] MEDS: PHENYTOIN ER 100 MG CAPSULE PO SCH ×2 (09:06→20:33)
[2017-11-08] MEDS: levETIRAcetam 250 MG TABLET PO SCH ×2 (09:06→20:33)
[2017-11-08] MEDS: POLYETHYLENE GLYCOL 3350 17 GM PACKET PO SCH (09:06)
--- NOTE | 2017-11-08 10:12 | XRAY Report ---
DATE OF SERVICE: 11/06/2017 ONE VIEW CHEST: 11/06/2017 COMPARISON: One view chest 11/05/2017. INDICATION: Check for line placement. TECHNIQUE: Single frontal chest view. FINDINGS Chronic interstitial markings are noted. No pneumothorax or pleural effusion. No focal consolidation. Mediastinum appears stable. Right upper extremity PICC, tip overlies the superior vena cava. IMPRESSION: Appropriate appearance of right upper extremity PICC. Otherwise, unchanged appearance of the thorax. TD: 11/06/2017 19:49 MTDD
[2017-11-08] MEDS ORDERED: ACETAMINOPHEN 325 MG TABLET PO PRN (19:16)
[2017-11-08] MEDS ORDERED: SENNA 8.6 MG TABLET PO PRN (19:16)
--- NOTE | 2017-11-08 19:19 | PROVIDER PROGRESS NOTE ---
Subjective - Prog Note Date Prog Note Date: 11/08/17 Prog Note Time: 08:00 - Subjective Pt reports feeling: Improved Subjective: Alirio does not seem to remember me each day. He denies SOB, chest pain, N/V or a new cough. Current Medications - Current Medications Current Medications: Active Medications Acetaminophen (Tylenol) 325 mg PO Q4H PRN PRN Reason: PAIN/FEVER Acetaminophen/Hydrocodone Bitart ([place] 5/325) 2 tab PO Q6H PRN PRN Reason: PAIN Aspirin (Ecotrin) 81 mg PO DAILY [facility] Ciprofloxacin (Cipro) 250 mg PO BID [facility] Finasteride (Proscar) 5 mg PO DAILY [facility] Glipizide (Glucotrol Xl) 2.5 mg PO DAILY [facility] Ibuprofen (Motrin) 400 mg PO Q6HR [facility] Last Admin: 11/08/17 18:17 Dose: 400 mg Insulin Aspart (Novolog) 3 - 11 unit SUBQ 0800,1200,1700,2100 [facility] PRN Reason: Protocol Last Admin: 11/08/17 17:05 Dose: 5 unit Insulin Glargine (Lantus Solostar) 30 unit SUBQ QPM [facility] Lamotrigine (Lamictal) 200 mg PO BID [facility] Last Admin: 11/08/17 09:06 Dose: 200 mg Lamotrigine (Lamictal) 25 mg PO BID [facility] Levetiracetam (Keppra) 1,000 mg PO BID [facility] Last Admin: 11/08/17 09:06 Dose: 1,000 mg Metoprolol Succinate (Toprol Xl) 25 mg PO DAILY [facility] Non-Formulary Medication (Calcium Carbonate/Vitamin D3 [Calcium 500-Vit D3 200 Tablet]) 1 tab PO DAILY [facility] Non-Formulary Medication (Lovastatin [Lovastatin]) 40 mg PO QPM [facility] Non-Formulary Medication (Topiramate [Topiramate]) 50 mg PO BID [facility] Ondansetron HCl (Zofran Inj) 4 mg IVP Q6HR PRN PRN Reason: Nausea / Vomiting Ondansetron HCl (Zofran Odt) 4 mg TL Q6HR PRN PRN Reason: Nausea / Vomiting Phenytoin Sodium (Dilantin) 300 mg PO DAILY [facility] Last Admin: 11/08/17 09:06 Dose: 300 mg Phenytoin Sodium (Dilantin) 400 mg PO QPM [facility] Last Admin: 11/07/17 20:45 Dose: 400 mg Polyethylene Glycol (Miralax) 17 gm PO DAILY [facility] Last Admin: 11/08/17 09:06 Dose: 17 gm Senna (Senokot) 17.2 mg PO DAILY PRN PRN Reason: Constipation Sodium Chloride (Normal Saline Flush 0.9%) 10 ml IVP PRN PRN PRN Reason: NEEDED PER PROVIDER ORDERS Last Admin: 11/08/17 18:17 Dose: 10 ml Sodium Chloride (Normal Saline Flush 0.9%) 10 ml IVP Q8HR [facility] Last Admin: 11/08/17 17:00 Dose: Not Given Topiramate (Topamax) 50 mg PO BID [facility] Last Admin: 11/08/17 09:06 Dose: 50 mg Glipizide [Glipizide ER] 2.5 mg PO DAILY 05/18/13 Metformin HCl [Fortamet] 1,000 mg PO BIDWM 05/18/13 Phenytoin Sodium Extended [Dilantin] 300 mg PO DAILY 05/18/13 lamoTRIgine [LaMICtal] 200 mg PO BID 05/18/13 Phenytoin Sodium Extended 400 mg PO QPM 03/23/17 Tamsulosin [Flomax] 0.4 mg PO DAILY 03/23/17 Levetiracetam [Keppra] 1,000 mg PO BID 07/10/17 Lovastatin 40 mg PO QPM 07/10/17 Topiramate 50 mg PO BID 11/05/17 Aspirin [Aspirin EC] 81 mg PO DAILY 11/06/17 lamoTRIgine [LaMICtal] 25 mg PO BID 11/06/17 Acetaminophen 325 mg PO Q4H PRN 11/07/17 Calcium Carbonate/Vitamin D3 [Calcium 500-Vit D3 200 Tablet] 1 tab PO DAILY 01/20 Finasteride 5 mg PO DAILY 11/07/17 Metoprolol Succinate 25 mg PO DAILY 11/07/17 Senna [Senokot] 17.2 mg PO DAILY PRN 11/07/17 Objective - Vital Signs/Intake & Output Reviewed Vital Signs: Yes Vital Signs: Vital Signs x48h Temp Pulse Resp BP Pulse Ox 11/08/17 15:39 36.3 C L 81 22 99/57 L 96 Intake & Output: Intake & Output 11/05/17 11/06/17 11/07/17 11/08/17 23:59 23:59 23:59 23:59 Intake Total 1200 3970 2700 1660 Output Total 524 885 7613 3400 Balance 850 9200 -9401 -3913 - Objective General Appearance: positive: No acute distress, Alert, Lethargic Eyes Bilateral: positive: Normal inspection, PERRL Eyes: OU Conjunctivae pale, OU Scleral icterus ENT: positive: ENT inspection nml, Pharynx nml, No signs of dehydration Neck: positive: Nml inspection, Thyroid nml, No JVD, Trachea midline Respiratory: positive: Chest non-tender, No respiratory distress, Wheezes Cardiovascular: positive: Regular rate & rhythm, No gallop, Systolic murmur Peripheral Pulses: 2+ Radial (R), 2+ Radial (L) Abdomen: positive: Non-tender, No organomegaly, Nml bowel sounds, Other (rounded , soft) Back: positive: Nml inspection Skin: positive: No rash, Warm, Dry Extremities: positive: Non-tender, Full ROM, Pedal edema Neurologic/Psychiatric: positive: Disoriented to time, Weakness, Sensory loss, Depressed mood/affect, Other (baseline congnitive delay.) Reflexes: Bicep (R): 2+, Bicep (L): 2+ - Lab Results Fish Bones: 11/08/17 04:45 11/08/17 04:45 Other Labs: Lab Results x24hrs 11/08/17 11/08/17 11/08/17 Range/Units 16:19 11:56 07:56 WBC (4.8-10.8) x10^3/uL RBC (4.70-6.10) 10^6/uL Hgb (14.0-18.0) g/dL Hct (42.0-52.0) % MCV (80.0-94.0) fL MCH (27.0-31.0) pg MCHC (32.0-36.0) g/dL RDW (12.0-15.0) % Plt Count (130-450) 10^3/uL MPV (7.4-11.4) fL Neut # (1.5-6.6) 10^3/uL Lymph # (1.5-3.5) 10^3/uL [place] # (0.0-1.0) 10^3/uL Eos # (0.0-0.7) 10^3/uL Baso # (0.0-0.1) 10^3/uL Absolute Nucleated RBC x10^3/uL Nucleated RBC % /100WBC Sodium (135-145) mmol/L Potassium (3.5-5.0) mmol/L Chloride (101-111) mmol/L Carbon Dioxide (21-32) mmol/L Anion Gap (6-13) BUN (6-20) mg/dL Creatinine (0.6-1.2) mg/dL Estimated GFR (MDRD) (>89) Glucose (70-100) mg/dL POC Whole Bld Glucose 191 H 192 H 127 H (70 - 100) mg/dL Calcium (8.5-10.3) mg/dL Total Bilirubin (0.2-1.0) mg/dL AST (10-42) IU/L ALT (10-60) IU/L Alkaline Phosphatase (42-121) IU/L Total Protein (6.7-8.2) g/dL Albumin (3.2-5.5) g/dL Globulin (2.1-4.2) g/dL Albumin/Globulin Ratio (1.0-2.2) 11/08/17 11/08/17 11/07/17 Range/Units 04:45 04:45 20:42 WBC 5.8 (4.8-10.8) x10^3/uL RBC 3.80 L (4.70-6.10) 10^6/uL Hgb 10.9 L (14.0-18.0) g/dL Hct 33.7 L (42.0-52.0) % MCV 88.5 (80.0-94.0) fL MCH 28.7 (27.0-31.0) pg MCHC 32.4 (32.0-36.0) g/dL RDW 15.1 H (12.0-15.0) % Plt Count 310 (130-450) 10^3/uL MPV 8.0 (7.4-11.4) fL Neut # 3.9 (1.5-6.6) 10^3/uL Lymph # 0.9 L (1.5-3.5) 10^3/uL [place] # 0.7 (0.0-1.0) 10^3/uL Eos # 0.2 (0.0-0.7) 10^3/uL Baso # 0.0 (0.0-0.1) 10^3/uL Absolute Nucleated RBC 0.01 x10^3/uL Nucleated RBC % 0.3 /100WBC Sodium 137 (135-145) mmol/L Potassium 3.8 (3.5-5.0) mmol/L Chloride 107 (101-111) mmol/L Carbon Dioxide 22 (21-32) mmol/L Anion Gap 8.0 (6-13) BUN 16 (6-20) mg/dL Creatinine 0.9 (0.6-1.2) mg/dL Estimated GFR (MDRD) 84 L (>89) Glucose 130 H (70-100) mg/dL POC Whole Bld Glucose 234 H (70 - 100) mg/dL Calcium 8.1 L (8.5-10.3) mg/dL Total Bilirubin 0.4 (0.2-1.0) mg/dL AST 22 (10-42) IU/L ALT 22 (10-60) IU/L Alkaline Phosphatase 57 (42-121) IU/L Total Protein 6.6 L (6.7-8.2) g/dL Albumin 2.3 L (3.2-5.5) g/dL Globulin 4.3 H (2.1-4.2) g/dL Albumin/Globulin Ratio 0.5 L (1.0-2.2) - Diagnostic Imaging Diagnostic Imaging Results: positive: Final report reviewed Assessment/Plan - Problem List (1) Sepsis Impression: Patient presented with increasing confusion, and established cognitive deficits are chronic. He also was found to be febrile and hypotensive. Source is found on UA, sensitivites are resulted and pathogen is pseudomonas aeruginosa. Patient recieved numerous fluid boluses soon after admission. Lactic acid has been normal. This diagnosis is now ruled out since all blood cultures are negative. Plan: Monitor WBC. IV antibiotics, and tylenol for fever. Qualifiers: Sepsis type: sepsis due to unspecified organism Qualified Code(s): A41.9 - Sepsis, unspecified organism (2) UTI (urinary tract infection) Impression: Patient has a known history of urinary retention. Indwelling crenshaw in place, presumed to be BPH but may be neurogenic bladder. Treatment in ER was Rocephin and levaquin (with the first for resistant pathogen and the second because of prostate pathology). Plan: Continue with indwelling crenshaw, as this is chronic. Antibiotics changed to cipro IV and today changed to PO form according to sensitivities. Plan for discharge on PO tomorrow. Qualifiers: Urinary tract infection type: catheter-associated UTI Indwelling urinary catheter type: indwelling urethral catheter Encounter type: initial encounter Qualified Code(s): T83.511A - Infection and inflammatory reaction due to indwelling urethral catheter, initial encounter; N39.0 - Urinary tract infection , site not specified; N39.0 - Urinary tract infection, site not specified (3) Metabolic encephalopathy Impression: Patient has baseline confusion. Today patient continued to have beyond baseline confusion and AMS. Plan: Continue to treat the infection. PT/OT to evaluate. 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 It has been noted as worsening for this hospital stay. Plan: Continue to monitor. (5) Type 2 diabetes mellitus with neurologic complication, with long-term current use of insulin Impression: Patient's DM is noted to be mildly uncontrolled with an A1c of 7.3%. Today Glypizide was resumed for further BS control. Plan: We will continue to check ac tid and hs point of care glucose. Metformin is on hold while patient is in our care as per protocol. Continue Lantus 30 units and add sliding scale high dose short acting insulin. 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
[2017-11-08] MEDS ORDERED: INSULIN GLARGINE 300 UNIT/3 ML PEN SUBQ SCH (21:00)
[2017-11-08] MEDS ORDERED: TOPIRAMATE 25 MG TABLET PO SCH (21:00)
[2017-11-08] MEDS ORDERED: NON FORMULARY MED (Lovastatin [Lovastatin] 40 MG) PO SCH (21:00)
[2017-11-08] MEDS ORDERED: ATORVASTATIN 10 MG TABLET PO SCH (21:00)
[2017-11-08] MEDS: lamoTRIgine 25 MG TABLET PO SCH (21:06)
[2017-11-09 04:58] LABS: ALBUMIN 2.4 g/dL (3.2-5.5); ALBUMIN/GLOBULIN RATIO 0.5 (1.0-2.2); BILIRUBIN,TOTAL 0.2 mg/dL (0.2-1.0); CALCIUM 8.7 mg/dL (8.5-10.3); CREATININE 0.8 mg/dL (0.6-1.2); TOTAL PROTEIN 6.9 g/dL (6.7-8.2)
[2017-11-09] MEDS: IBUPROFEN 400 MG TABLET PO SCH ×2 (06:32→12:07)
[2017-11-09] MEDS: SODIUM CHLORIDE FLUSH 0.9% 10 ML SYRINGE IVP SCH ×2 (06:32→12:00)
[2017-11-09] MEDS: INSULIN ASPART 300 UNIT/3 ML PEN SUBQ SCH ×2 (07:46→11:27)
[2017-11-09 08:05] VITALS: BP 121/103
[2017-11-09] MEDS ORDERED: FINASTERIDE 5 MG TABLET PO SCH (09:00)
[2017-11-09] MEDS ORDERED: METOPROLOL SUCCINATE 25 MG TABLET PO SCH (09:00)
[2017-11-09] MEDS ORDERED: ASPIRIN EC 81 MG TABLET PO SCH (09:00)
[2017-11-09] MEDS: POLYETHYLENE GLYCOL 3350 17 GM PACKET PO SCH (09:24)
[2017-11-09] MEDS: levETIRAcetam 250 MG TABLET PO SCH (09:26)
[2017-11-09] MEDS: TOPIRAMATE 25 MG TABLET PO SCH (09:26)
[2017-11-09] MEDS: PHENYTOIN ER 100 MG CAPSULE PO SCH (09:28)
[2017-11-09] MEDS: lamoTRIgine 25 MG TABLET PO SCH (09:30)
[2017-11-09] MEDS: lamoTRIgine 100 MG TABLET PO SCH (09:30)
[2017-11-09] MEDS: CIPROFLOXACIN 250 MG TABLET PO SCH ×2 (09:33→10:22)
--- NOTE | 2017-11-09 11:14 | Discharge Plan ---
"Discharge Plan for SNF / ASSISTED - DC Plan and Transition Orders Disposition: 03 SNF DC/Xfer Condition: Good SNF Transition Orders: Admit to: Care Age under the care of Clarice Micheal Discharge Diagnosis: UTI, DM type 2, hypotension, BPH, chronic indwelling crenshaw, S/P brain tumor. Medicare Certification: I certify that [facility] residential care is medically necessary on a continuing basis for any of the conditions for which she/he is receiving care during hospitalization. Notify PCP of admission and forward orders to primary provider for signature. Weight on admission and weekly. Call PCP immediately if weight increases by 10 pounds or if patient develops dyspnea, chest pain/tightness or edema. House Bowel Program: yes If no BM after 2 days, nurse may give M.O.M. 30ml PO PRN and /or ducolax Supp 1 AK and /or JOSE MANUEL 250mg P.O., and/or senna 1-2 tabs PO. On day 3 nurse may give repeat above order until residents constipation is resolved. Immunizations: Annual Influenza Vaccine: yes. (between Jul 06 and February 02.) Unless allergy or already given Two-Step PPD: yes per [facility] [id number] or appropriate documentation of approved exceptions Treatments & Other Orders: PT/OT/speech, continue antibiotic for an additional 7 days for UTI. Oxygen Orders: 1-3L nasal cannula to keep O2 greater than 90%. Lab Tests or X-Rays Orders: not indicated. Orthopedic Orders: none. Medications: PLEASE REFER TO THE DISCHARGE MEDICATION LIST. Insulin Orders? no Diagnosis: Diabetes Initiate hypo and hyperglycemia protocols for BG <70 and BG >375. May check BG prn for signs/symptoms of dysglycemia. Frequency of BG checks: AC/Meal/HS, resume oral agents, use SSI if needed at low dose. Basal Insulin: Lantus 100 units / ml inject subq as follows: Other: Correction Insulin: - Select the type of insulin below Choose: Novolog/Butzzgr821 units /ml insulin inject subq per orders indicate below LOW DOSE MODERATE DOSE MODERATE/HIGH DOSE HIGH DOSE GB UNITS GB UNITS GB UNITS GB UNITS 61-140 0 UNITS 61-140 0 UNITS 61-140 0 UNITS 61-140 0 UNITS 141-175 1 UNITS 141-175 1 UNITS 141-175 2 UNITS 141-175 3 UNITS 176-225 2 UNITS 176-225 3 UNITS 176-225 4 UNITS 176-225 5 UNITS 226-275 3 UNITS 226-275 5 UNITS 226-275 6 UNITS 226-275 7 UNITS 276-325 4 UNITS 276-325 7 UNITS 276-325 8 UNITS 276-325 9 UNITS 326-375 5 UNITS 326-375 9 UNITS 326-375 10 UNITS 326-375 11 UNITS >375 CONTACT MD >375 CONTACT MD >375 CONTACT MD >375 CONTACT MD Custom Dosing: Choose: None/Novolog/Humalog 100 units/ml Insulin inject subq as follows: GB Units 61-140 Units 141-175 Units 176-225 Units 226-275 Units 276-325 Units 326-375 Units >375 Contact MD Allergies and Adverse Reactions: Allergies Allergy/AdvReac Type Severity Reaction Status Date / Time No Known Drug Allergies Allergy Verified 11/05/17 18:09 - Medications New Prescriptions: Ciprofloxacin [Cipro] 250 mg PO BID 7 Days #14 tablet - Diet Type: Geriatric Texture: Regular Liquids: Thin May have monthly special meal: Yes - Therapies | Activity Therapy: Evaluation | Treat if indicated: Speech, PT, OT Activity: No Restrictions Weight Bearing: Full Weight Follow Up: As per Care Age recommendations."
--- NOTE | 2017-11-09 11:25 | DISCHARGE SUMMARY ---
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 Metabolic encephalopathy (G93.41) resolved, stable. 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 Type 2 diabetes mellitus with other diabetic neurological complication (E11.49) chronic, controlled with insulin/meds/diet. - HPI History of Present Illness: HPI per Dr. Hooper: Mehdi Salas is a pleasant 71-year-old white male who is a resident of [facility], a local assisted living facility. His permanent residence is with his son and [id number]-izn in [place]. In spite of 3 seizure medicines , he still has breakthrough intermittent seizures. The last one was on Thanksgiving. He was seen in [place] and given IV dilantin. His Neurologist is at [facility]. He then came to our ER 10/02 with urinary frequency and increased confusion in patient who is already easily confused to begin with. Found to have Creatinine of greater than 9 and a Potassium of greater than 7. He was transferred to [facility] and found to have urinary obstruction from BPH as the cause of the JUAN. From there he went to [facility] for physical rehab and decreased functional status. His POA and daughter describes seeing him at [place] and he was almost at baseline. Walking around, talking, not using a cane. Didn't like the food,at [facility], but was progressing well and they hoped to take him back to his son and [id number]'s house soon. Yesterday he had a fever with increased confusion an elevated WBC count of 21. Crenshaw, now considered nursing home, is still in place. No description of pulmonary , abdominal complaints or seizures. In the ER the patient was evaluated by Dr. Arango who notes a pleasant, confused man, with poor dentition. GCS of 15. No lung or abd findings. Febrile and hypotensive with a blood pressure of 83/53. UA with proteinuria, hematuria, pyuria and (+) jose ase. No bacteria seen but culture will be done. Patient will be admitted to further evaluate and treat suspected sepsis with UTI. - CONSULTS | PROCEDURES Procedures: PICC placed by anesthesia on 11/06 due to severe hypotension/septic shock. - HOSPITAL COURSE Hospital Course: The following problems/diagnoses were prevelant during this hospital stay: Sepsis: Patient presented with increasing confusion, and established cognitive deficits are chronic. He also was found to be febrile and hypotensive. Source is found on UA, sensitivites are resulted and pathogen is pseudomonas aeruginosa. Patient received numerous fluid boluses soon after admission. Lactic acid has been normal. This diagnosis is now ruled out since all blood cultures are negative that were obtained on 11/05 and 11/06. Patient's labs were monitored, IV antibiotics, and tylenol for fever. UTI: Patient has a known history of urinary retention, with JUAN. Indwelling crenshaw in place, presumed to be BPH but may be neurogenic bladder. Treatment in ER was Rocephin and levaquin (with the first for resistant pathogen and the second because of prostate pathology). Continue with indwelling crenshaw, as this is chronic. Antibiotics changed to cipro IV after urine sample grew out pseudomonas aeruginosa based on sensitivity list, and transitioned to PO form according to sensitivities. Plan to continue at discharge. Metabolic encephalopathy: Patient has baseline confusion. Today patient continued to have beyond baseline confusion and AMS, that eventually cleared after antibiotics began. Continue to treat the infection. PT/OT therapies to treate and evaluate. Cognitive and neurobehavioral dysfunction following brain injury: Patient has a known history of this dating to 2004. It has been noted as worsening for this hospital stay. Patient was monitored throughout his stay for worsening AMS. Type 2 DM w/neurologic complication, with long-term current use of insulin: Patient's DM is noted to be mildly uncontrolled with an A1c of 7.3%. Today Glypizide was resumed for further BS control. Patient was continued on AC/HS blood glucose monitoring. Metformin is on hold while patient is in our care as per protocol. Continued Lantus and added sliding scale high dose short acting insulin. Disposition: Patient was transferred back to [facility] Age in stable condition to continue Cipro PO. - ALLERGIES Allergies/Adverse Reactions: Allergies Allergy/AdvReac Type Severity Reaction Status Date / Time No Known Drug Allergies Allergy Verified 11/05/17 18:09 - MEDICATIONS Home Medications: Ambulatory Orders Medication Instructions Recorded Confirmed Glipizide [Glipizide ER] 2.5 mg PO DAILY 05/18/13 11/06/17 Phenytoin Sodium Extended 300 mg PO DAILY 05/18/13 11/06/17 [Dilantin] Acetaminophen 325 mg PO Q4H PRN #30 11/09/17 11/07/17 Aspirin [Aspirin EC] 81 mg PO DAILY #30 11/09/17 11/06/17 Calcium Carbonate/Vitamin D3 1 tab PO DAILY #30 11/09/17 11/07/17 [Calcium 500-Vit D3 200 Tablet] Ciprofloxacin [Cipro] 250 mg PO BID 7 Days #14 tablet 11/09/17 Finasteride 5 mg PO DAILY #30 11/09/17 11/07/17 Levetiracetam [Keppra] 1,000 mg PO BID #60 11/09/17 11/06/17 Lovastatin 40 mg PO QPM #30 11/09/17 11/06/17 Metformin HCl [Fortamet] 1,000 mg PO BIDWM #30 11/09/17 11/06/17 Metoprolol Succinate 25 mg PO DAILY #30 11/09/17 11/07/17 Phenytoin Sodium Extended 400 mg PO QPM #30 11/09/17 11/06/17 Senna [Senokot] 17.2 mg PO DAILY PRN #30 11/09/17 11/07/17 Tamsulosin [Flomax] 0.4 mg PO DAILY #30 11/09/17 11/06/17 Topiramate 50 mg PO BID #30 11/09/17 11/07/17 lamoTRIgine [LaMICtal] 25 mg PO BID #30 11/09/17 11/06/17 lamoTRIgine [LaMICtal] 200 mg PO BID #30 11/09/17 11/07/17 - PHYSICAL EXAM AT DISCHARGE General Appearance: positive: No acute distress, Alert Eyes Bilateral: positive: Normal inspection ENT: positive: ENT inspection nml, Pharynx nml, No signs of dehydration Neck: positive: Nml inspection, Thyroid nml, No JVD, Trachea midline Respiratory: positive: Chest non-tender, No respiratory distress, Other ( crackles in low bases, cleared after coughing.) Cardiovascular: positive: Regular rate & rhythm, No gallop, Systolic murmur, Decreased pulse(s) Peripheral Pulses: positive: 1+ Abdomen: positive: Non-tender, No organomegaly, Nml bowel sounds, No distention , Other (rounded, soft) Back: positive: Nml inspection Skin: positive: No rash, Warm, Dry, Pallor Extremities: positive: Non-tender, Full ROM Neurologic/Psychiatric: positive: Disoriented to time, Weakness, Sensory loss, Depressed mood/affect, Other (baseline cognition) Reflexes: Bicep (R): 1+, Bicep (L): 1+ - LABS Result Diagrams: 11/08/17 04:45 11/09/17 04:40 - DIAGNOSTIC IMAGING Diagnostic Imaging Results: Final report reviewed Diagnostic Imaging Results Comments: CXR on 11/05: Negative for acute focal Pneumonia, interstitial densities unchanged. CXR on 11/06: Confirm PICC placement Right upper arm, superior vena cava. Echocardiogram on 11/05: improved from previous echo on 05/2013. EF 55%, improved from 45% on 05/2013. RV moderately dilated, severe RA enlargement, RVSP at rest was 34mmHg, improved from 48mmHg on 05/2013. - FOLLOW UP Follow Up: Disposition: 03 [facility] DC/Xfer Condition: Good SNF Transition Orders: Admit to: Care Age under the care of Clarice Burton Discharge Diagnosis: UTI, DM type 2, hypotension, BPH, chronic indwelling crenshaw, S/P brain tumor. - TIME SPENT Time Spent in Discharge (Minutes): 60"
[2017-11-09] MEDS ORDERED: CHOLECALCIFEROL 400 UNIT TABLET PO SCH (12:00)
[2017-11-09] MEDS ORDERED: CALCIUM CARB (OYSTER SHELL) 500 MG TABLET PO SCH (12:00)
== END 2017-11-09 14:41 | DRG 698 ==
LOC: ED 17:34 → MS2 20:21
PROVIDERS: ADMIT Specialist; ATTEND Nurse Practitioner
PROC: 02HV33Z Insertion of Infusion Device into Superior Vena Cava, Percutaneous Approach (ICD-10-PCS; principal; 2017-11-06)
DX: T83.511A Infection and inflammatory reaction due to indwelling urethral catheter, initial encounter (principal); G93.41 Metabolic encephalopathy; A41.9 Sepsis, unspecified organism; Q04.3 Other reduction deformities of brain; N39.0 Urinary tract infection, site not specified; E78.00 Pure hypercholesterolemia, unspecified; E11.9 Type 2 diabetes mellitus without complications; B96.5 Pseudomonas (aeruginosa) (mallei) (pseudomallei) as the cause of diseases classified elsewhere; G40.909 Epilepsy, unspecified, not intractable, without status epilepticus; E11.49 Type 2 diabetes mellitus with other diabetic neurological complication; Z85.841 Personal history of malignant neoplasm of brain; F09 Unspecified mental disorder due to known physiological condition; I95.9 Hypotension, unspecified; N40.1 Benign prostatic hyperplasia with lower urinary tract symptoms; R33.8 Other retention of urine; N31.9 Neuromuscular dysfunction of bladder, unspecified; I10 Essential (primary) hypertension; I25.2 Old myocardial infarction; Z79.84 Long term (current) use of oral hypoglycemic drugs; Z79.891 Long term (current) use of opiate analgesic; Z79.899 Other long term (current) drug therapy
CPT/HCPCS: 36415; 71045; 80048; 80053; 80177; 80185; 81001; 81003; 83036; 83605; 83735; 84484; 85025; 87040; 87086; 87275; 87276; 93005; 93306; 96361; 96365; 96367; 99284; 99285

== ENCOUNTER 2017-12-18 19:57 | Outpatient (CLI) | payer MEDICARE, OTHER | END 2017-12-18 19:58 | disposition critical access hospital (66) | LOC: EMS 19:57 | PROVIDERS: ATTEND Surgery | DX: R56.9 Unspecified convulsions (principal); R53.1 Weakness; R29.810 Facial weakness | CPT/HCPCS: A0425; A0427 ==

== ENCOUNTER 2017-12-18 20:11 | Inpatient (IN) | payer MEDICARE, OTHER ==
--- NOTE | 2017-12-18 20:27 | ED Physician Documentation ---
PD HPI SEIZURE - Stated complaint Stated Complaint: SZ - Chief complaint Chief Complaint: Neuro - History obtained from History obtained from: Patient, Family, EMS - History of Present Illness Timing - onset: Today Witnessed: Witnessed Number of seizures: Multiple Description of seizure activity: Focal, Generalized Injury during seizure: None Associated symptoms: Unknown History of seizures: Known seizure disorder Similar symptoms before: Diagnosis (status) Recently seen: Admitted - Additional information Additional information: 72-year-old male with history of a brain tumor 10 years ago has a chronic seizure disorder and he does have an indwelling Hooker catheter and a recent admission for urosepsis. Today he was in his home with his family when he developed eye twitching and episodes 2 and this was subsequently followed by a grand mal seizure. Family called 911 when the grand mal seizure began and they were able to administer his nighttime medications. They did not have any seizure rescue medicines today. Review of Systems Unable to obtain: Other (The patient is unable to answer questions effectively.) PD PAST MEDICAL HISTORY - Past Medical History Cardiovascular: Hypertension, High cholesterol, MD Respiratory: None Neuro: Seizure disorder, Other Endocrine/Autoimmune: Type 2 diabetes GI: Colon polyps : Benign prostate hypertrophy HEENT: None Psych: None Musculoskeletal: None Derm: None - Past Surgical History Past Surgical History: Yes General: Colonoscopy Neuro: Craniotomy - Present Medications Home Medications: Ambulatory Orders Medication Instructions Recorded Confirmed Glipizide [Glipizide ER] 2.5 mg PO DAILY 05/18/13 11/06/17 Phenytoin Sodium Extended 300 mg PO DAILY 05/18/13 11/06/17 [Dilantin] Acetaminophen 325 mg PO Q4H PRN #30 11/09/17 11/07/17 Aspirin [Aspirin EC] 81 mg PO DAILY #30 11/09/17 11/06/17 Calcium Carbonate/Vitamin D3 1 tab PO DAILY #30 11/09/17 11/07/17 [Calcium 500-Vit D3 200 Tablet] Ciprofloxacin [Cipro] 250 mg PO BID 7 Days #14 tablet 11/09/17 Finasteride 5 mg PO DAILY #30 11/09/17 11/07/17 Levetiracetam [Keppra] 1,000 mg PO BID #60 11/09/17 11/06/17 Lovastatin 40 mg PO QPM #30 11/09/17 11/06/17 Metformin HCl [Fortamet] 1,000 mg PO BIDWM #30 11/09/17 11/06/17 Metoprolol Succinate 25 mg PO DAILY #30 11/09/17 11/07/17 Phenytoin Sodium Extended 400 mg PO QPM #30 11/09/17 11/06/17 Senna [Senokot] 17.2 mg PO DAILY PRN #30 11/09/17 11/07/17 Tamsulosin [Flomax] 0.4 mg PO DAILY #30 11/09/17 11/06/17 Topiramate 50 mg PO BID #30 11/09/17 11/07/17 lamoTRIgine [LaMICtal] 25 mg PO BID #30 11/09/17 11/06/17 lamoTRIgine [LaMICtal] 200 mg PO BID #30 11/09/17 11/07/17 - Allergies Allergies/Adverse Reactions: Allergies Allergy/AdvReac Type Severity Reaction Status Date / Time No Known Drug Allergies Allergy Verified 11/05/17 18:09 - Social History Does the pt smoke?: No Smoking Status: Never smoker Does the pt drink ETOH?: Yes Does the pt have substance abuse?: No - Immunizations Immunizations are current?: Yes - POLST Patient has POLST: No POLST Status: Full Code PD ED PE NORMAL - Vitals Vital signs reviewed: Yes (Hypertensive) - General General: No acute distress, Well developed/nourished, Other (72-year-old male wide eyed and interactive but unable to answer questions effectively.) - HEENT HEENT: Atraumatic, PERRL, EOMI, Other (The right TM is occluded by cerumen. Left is clear there is dried powder on the patient's lips appears he has chewed his pills.) - Neck Neck: Supple, no meningeal sign, No bony TTP - Cardiac Cardiac: No murmur, Other (Tachycardia to 110 sitting up) - Respiratory Respiratory: No respiratory distress, Clear bilaterally, Other (Diminished breath sounds bilaterally) - Abdomen Abdomen: Soft, Non tender - Back Back: No CVA TTP, No spinal TTP - Derm Derm: Normal color, Warm and dry, No rash - Extremities Extremities: No deformity, No edema - Neuro Neuro: No motor deficit, No sensory deficit Eye Opening: Spontaneous Motor: Obeys Commands Verbal: Confused GCS Score: 14 - Psych Psych: Normal mood, Normal affect Results - Vitals Vitals: Vital Signs - 24 hr 12/18/17 12/18/17 20:10 21:02 Temperature 37.1 C Heart Rate 94 86 Respiratory 23 20 Rate Blood Pressure 134/83 H 119/48 L O2 Saturation 96 100 Oxygen O2 Source Nasal cannula Oxygen Flow Rate 2 - Labs Labs: Laboratory Tests 12/18/17 12/18/17 12/18/17 19:32 19:32 19:32 WBC 7.6 RBC 4.26 L Hgb 12.3 L Hct 38.2 L MCV 89.7 MCH 28.9 MCHC 32.2 RDW 15.9 H Plt Count 299 MPV 7.3 L Neut # 5.5 Lymph # 1.3 L Hardy # 0.5 Eos # 0.3 Baso # 0.0 Absolute Nucleated RBC 0.00 Nucleated RBC % 0.0 Sodium 135 Potassium 4.1 Chloride 98 L Carbon Dioxide 24 Anion Gap 13.0 BUN 13 Creatinine 1.2 Estimated GFR (MDRD) 60 L Glucose 268 H Calcium 8.6 Total Bilirubin 0.3 AST 24 ALT 22 Alkaline Phosphatase 83 Troponin I < 0.04 Total Protein 8.3 H Albumin 3.6 Globulin 4.7 H Albumin/Globulin Ratio 0.8 L Lipase 27 Urine Color Urine Clarity Urine pH Ur Specific [place] Urine Protein Urine Glucose (UA) Urine Ketones Urine Occult Blood Urine Nitrite Urine Bilirubin Urine Urobilinogen Ur Leukocyte Esterase Urine RBC Urine WBC Ur Squamous Epith Cells Urine Bacteria Ur Microscopic Review Urine Culture Comments Phenytoin 23.1 12/18/17 20:20 WBC RBC Hgb Hct MCV MCH MCHC RDW Plt Count MPV Neut # Lymph # Hardy # Eos # Baso # Absolute Nucleated RBC Nucleated RBC % Sodium Potassium Chloride Carbon Dioxide Anion Gap BUN Creatinine Estimated GFR (MDRD) Glucose Calcium Total Bilirubin AST ALT Alkaline Phosphatase Troponin I Total Protein Albumin Globulin Albumin/Globulin Ratio Lipase Urine Color YELLOW Urine Clarity HAZY Urine pH 6.0 Ur Specific [place] 1.025 Urine Protein NEGATIVE Urine Glucose (UA) 250 H Urine Ketones NEGATIVE Urine Occult Blood TRACE-INTA Urine Nitrite NEGATIVE Urine Bilirubin NEGATIVE Urine Urobilinogen 0.2 (NORMAL) Ur Leukocyte Esterase SMALL H Urine RBC 0-5 Urine WBC >25 H Ur Squamous Epith Cells NONE SEEN Urine Bacteria Many H Ur Microscopic Review INDICATED Urine Culture Comments INDICATED Phenytoin - Rads (name of study) CT head without Radiology: Prelim report reviewed (Impression: 1. Negative for acute hemorrhage or midline shift. 2. Multiple areas of left cerebral and right cerebral encephalomalacia and volume loss. Similar to previous.), EMP read indepedently, See rad report Procedures - IVC sono (time) 2036 Bedside IVC sono: IVC measures (cm) (0.71), Low CVP, Dehydration (est 2 liter deficit) PD MEDICAL DECISION MAKING - ED course Complexity details: reviewed old records, considered differential, d/w patient, d/w family ED course: 72-year-old male with a history of brain tumor and seizure disorder has an indwelling Hooker catheter and today has had a generalized tonic-clonic seizure on his medications. On evaluation he does have urinary tract infection and he is significantly dehydrated with blood glucose over 260 and IVC measuring 0.71 cm. I have asked the hospitalist to admit the patient for treatment of urinary tract infection and dehydration with breakthrough seizure. Departure - Departure Disposition: 66 [facility] DC/Xfer Clinical Impression: Seizure, Dehydration UTI (urinary tract infection) Qualifiers: Urinary tract infection type: catheter-associated UTI Indwelling urinary catheter type: indwelling urethral catheter Encounter type: initial encounter Qualified Code(s): T83.511A - Infection and inflammatory reaction due to indwelling urethral catheter, initial encounter
[2017-12-18 20:32] LABS: BASOPHILS % (AUTO) 0.4 %; EOSINOPHILS # (AUTO) 0.3 10^3/uL (0.0-0.7); EOSINOPHILS % (AUTO) 3.8 %; HGB - HEMOGLOBIN 12.3 g/dL (14.0-18.0); LYMPHOCYTES # (AUTO) 1.3 10^3/uL (1.5-3.5); LYMPHOCYTES % (AUTO) 16.7 %; MEAN CORPUSCULAR HEMOGLOBIN 28.9 pg (27.0-31.0); MEAN CORPUSCULAR HGB CONC 32.2 g/dL (32.0-36.0); MEAN CORPUSCULAR VOLUME 89.7 fL (80.0-94.0); MEAN PLATELET VOLUME 7.3 fL (7.4-11.4); MONOCYTES # (AUTO) 0.5 10^3/uL (0.0-1.0); MONOCYTES % (AUTO) 6.7 %; NEUTROPHILS # (AUTO) 5.5 10^3/uL (1.5-6.6); NEUTROPHILS % (AUTO) 72.4 %; PLT - PLATELET COUNT 299 10^3/uL (130-450); RED BLOOD COUNT 4.26 10^6/uL (4.70-6.10); RED CELL DISTRIBUTION WIDTH 15.9 % (12.0-15.0); WHITE BLOOD COUNT 7.6 x10^3/uL (4.8-10.8)
[2017-12-18] MEDS ORDERED: SODIUM CHLORIDE 0.9% 1,000 ML IV ONE (20:37)
[2017-12-18 20:41] LABS: BILIRUBIN,URINE NEGATIVE (NEGATIVE); GLUCOSE, URINE (UA) 250 mg/dL (NEGATIVE); KETONES,URINE (UA) NEGATIVE (NEGATIVE); LEUKOCYTE ESTERASE, URINE SMALL (NEGATIVE); NITRITE,URINE NEGATIVE (NEGATIVE); OCCULT BLOOD,URINE TRACE-INTA (NEGATIVE); PROTEIN,URINE NEGATIVE (NEGATIVE); UROBILINOGEN,URINE 0.2 (NORMAL) E.U./dL (NORMAL)
[2017-12-18 20:45] LABS: CLARITY,URINE HAZY (CLEAR)
[2017-12-18 20:46] LABS: ALBUMIN 3.6 g/dL (3.2-5.5); ALBUMIN/GLOBULIN RATIO 0.8 (1.0-2.2); BILIRUBIN,TOTAL 0.3 mg/dL (0.2-1.0); CALCIUM 8.6 mg/dL (8.5-10.3); CREATININE 1.2 mg/dL (0.6-1.2); PHENYTOIN (DILANTIN) 23.1 ug/mL; TOTAL PROTEIN 8.3 g/dL (6.7-8.2)
[2017-12-18 20:54] LABS: RBC,URINE 0-5 /HPF (0-5); SQUAMOUS EPITHELIAL CELL,UR NONE SEEN (<= Few)
[2017-12-18 20:55] LABS: BACTERIA,URINE Many /HPF (None Seen)
--- NOTE | 2017-12-18 21:15 | CT Preliminary Report ---
Exam: CT HEAD W/O IMPRESSION: 1. Negative for acute hemorrhage or midline shift. 2. Multiple areas of left cerebral and right cerebellar encephalomalacia and volume loss. Similar to previous. [facility] SITE ID: [id number]
--- NOTE | 2017-12-18 21:15 | CT Report ---
EXAM: CT HEAD EXAM DATE: 12/18/2017 08:51 PM. CLINICAL HISTORY: Seizure right sided flaccid. COMPARISON: 07/10/2017. TECHNIQUE: Multiaxial CT images were obtained from the foramen magnum to the vertex. Reformats: Coron al. IV contrast: None. In accordance with CT protocol optimization, one or more of the following dose reduction techniques w ere utilized for this exam: automated exposure control, adjustment of mA and/or KV based on patient s ize, or use of iterative reconstructive technique. FINDINGS: Parenchyma: Again seen are multiple areas of encephalomalacia in the left frontal, parietal and tempo ral lobes. There is associated volume loss. There is encephalomalacia in the inferior right cerebella r hemisphere which appears unchanged. Negative for acute hemorrhage. No midline shift. Extraaxial Spaces: No subdural or epidural collections identified. Ventricles: Left lateral ventricle is dilated secondary to encephalomalacia. Sinuses and Orbits: There is partial opacification of the left ethmoid and frontal sinuses. Bones: Previous left craniectomy and reconstruction. Other: None. IMPRESSION: 1. Negative for acute hemorrhage or midline shift. 2. Multiple areas of left cerebral and right cerebellar encephalomalacia and volume loss. Similar to previous. [facility] Referring Provider Line: [phone] SITE ID: [id number]
[2017-12-18] MEDS ORDERED: levoFLOXacin 750 MG/150 ML 750 MG/150 ML BAG IV SCH ×2 (21:48→23:00)
[2017-12-18] MEDS ORDERED: cefTRIAXone 1 GM in SODIUM CHLORIDE 0.9% MINIBAG 100 ML IV STA (21:48)
[2017-12-18] MEDS ORDERED: SODIUM CHLORIDE FLUSH 0.9% 10 ML SYRINGE IVP PRN (21:56)
[2017-12-18] MEDS ORDERED: ACETAMINOPHEN 325 MG TABLET PO PRN ×2 (21:56→22:09)
[2017-12-18] MEDS ORDERED: PROCHLORPERAZINE 10 MG/2 ML VIAL IVP PRN (21:56)
[2017-12-18] MEDS ORDERED: SENNA 8.6 MG TABLET PO PRN (22:01)
[2017-12-18] MEDS: SODIUM CHLORIDE FLUSH 0.9% 10 ML SYRINGE IVP SCH (23:51)
[2017-12-19] MEDS: SODIUM CHLORIDE 0.9% 1,000 ML IV SCH ×3 (00:53→21:53)
--- NOTE | 2017-12-19 03:01 | HISTORY & PHYSICAL EXAMINATION ---
DATE OF SERVICE: 12/18/2017 Physician: Belkis Koch MD DATE OF ADMISSION: 12/18/2017 HISTORY OF PRESENT ILLNESS: This is a 72-year-old, white male with a history of a brain tumor for which he had craniotomy and tumor removal over 10 years ago. Subsequently, he was left with cognitive dysfunction and a seizure disorder. He still gets breakthrough seizures occasionally. The patient has an indwelling Hooker catheter since September 2017 due to urinary retention, felt to be due to prostatic hypertrophy, but cannot rule out a neurogenic bladder. The patient is to be seen by his urologist tomorrow for determination if the urinary catheter comes out. Today, the patient had witnessed repeated eye blinking and then a grand mal seizure, and was brought to the emergency room. The patient can give me no history, but does realize he is here because of a seizure at home. The patient complains of no discomfort, denies shortness of breath, has no complaints but says he is "hungry and wants to eat". PAST MEDICAL HISTORY: Brain tumor with craniotomy, seizure disorder, cognitive dysfunction, chronic indwelling Hooker for the last 3 months due to BPH and possibly a neurogenic bladder, had urosepsis in September 2017, diabetes, colon polyps, hypertension, elevated cholesterol, prior MA. ALLERGIES: NONE. MEDICATIONS AT HOME 1. Glipizide 2.5 mg daily. 2. Phenytoin extended release 300 mg daily. 3. Tylenol p.r.n. pain. 4. Baby aspirin daily. 5. Calcium carbonate with vitamin D3 one tablet daily. 6. Cipro 250 p.o. b.i.d. for 7 days, unknown when this was started or stopped 7. Finasteride 5 mg p.o. daily. 8. Keppra 1000 mg p.o. b.i.d. 9. Lovastatin 40 mg p.o. at bedtime. 10. Metformin 1000 mg p.o. b.i.d. 11. Metoprolol succinate 25 mg p.o. daily. 12. Phenytoin extended release 100 mg p.o. every evening. 13. Senokot 17.2 mg p.o. daily p.r.n. constipation. 14. Flomax 0.4 mg p.o. daily. 15. Topiramate 50 mg p.o. b.i.d. 16. Lamictal 225 mg p.o. b.i.d. SOCIAL HISTORY: The patient is a nonsmoker who never smoked, drinks alcohol rarely and uses no illicit substances. The patient lives with his daughter and son-in-law. He required admission to [facility] for physical therapy following the last admission 3 months ago. CODE STATUS: FULL CODE. REVIEW OF SYSTEMS: A comprehensive review of systems was performed with the patient and by review of the chart, and the pertinent positives are summarized above. PHYSICAL EXAMINATION GENERAL: A white male who is in no distress, supine in bed. VITAL SIGNS: Blood pressure 147/62, pulse of 76 in sinus rhythm, afebrile, oxygen saturation 100% on room air. HEENT: Reveals dry oral mucosa. NECK: No JVD supine. No carotid bruits. No thyromegaly or lymphadenopathy. LUNGS: Clear. HEART: Sounds normal. ABDOMEN: Soft. Positive bowel sounds. Nontender. EXTREMITIES: 2+ edema on the left to the knee and 1+ edema on the right to the knee. No clubbing or cyanosis. NEUROLOGIC: Grossly intact, except for poor memory. LABORATORIES: Sodium 135, potassium 4.1, BUN 13, creatinine 1.2, glucose 268, magnesium 1.8. Normal liver tests. Troponin not detectable. White blood count 7.6, hemoglobin 12.3, platelet count normal, differential normal. Serum phenytoin level was 23.1, which is just above the therapeutic range of 10-20. Urinalysis: High glucose, small leukocyte esterase, and many white blood cells and bacteria. Head CT: Old changes after craniotomy, but no acute changes, no hemorrhage or midline shift. IMPRESSION/DIAGNOSES 1. Breakthrough seizures. 2. Brain tumor, status post craniotomy with subsequent cognitive impairment. 3. Dehydration. 4. Urinary tract infection. 5. Diabetes mellitus. 6. History of hypertension. 7. History of myocardial infarction. PLAN: Admit the patient for IV hydration for the dehydration and IV antibiotics for the UTI. Urine and blood cultures will be ordered. The patient will be placed on empiric Rocephin and Levaquin. Begin seizure precaution monitoring. Continue with all of his 3 antiseizure medications. Obtain blood level of the other seizure medications. Start a diabetic diet and continue with his oral diabetic agents, and use sliding scale insulin to cover for high glucoses found on fingerstick checks. Follow his BMP and CBC. Continue his blood pressure and MA medications. DEEP VENOUS THROMBOSIS PROPHYLAXIS: Lovenox. CODE STATUS: FULL CODE. ATTESTATION: The patient is expected to be discharged or transferred to another facility within 96 hours: Yes. TD: 12/19/2017 03:00 GUERDA
[2017-12-19 05:12] LABS: BASOPHILS % (AUTO) 0.5 %; CALCIUM 8.3 mg/dL (8.5-10.3); CREATININE 0.8 mg/dL (0.6-1.2); EOSINOPHILS # (AUTO) 0.2 10^3/uL (0.0-0.7); EOSINOPHILS % (AUTO) 2.7 %; HGB - HEMOGLOBIN 11.6 g/dL (14.0-18.0); LYMPHOCYTES # (AUTO) 1.5 10^3/uL (1.5-3.5); LYMPHOCYTES % (AUTO) 24.6 %; MEAN CORPUSCULAR HEMOGLOBIN 28.8 pg (27.0-31.0); MEAN CORPUSCULAR HGB CONC 32.6 g/dL (32.0-36.0); MEAN CORPUSCULAR VOLUME 88.3 fL (80.0-94.0); MEAN PLATELET VOLUME 7.5 fL (7.4-11.4); MONOCYTES # (AUTO) 0.6 10^3/uL (0.0-1.0); MONOCYTES % (AUTO) 9.8 %; NEUTROPHILS # (AUTO) 3.8 10^3/uL (1.5-6.6); NEUTROPHILS % (AUTO) 62.4 %; PLT - PLATELET COUNT 275 10^3/uL (130-450); RED BLOOD COUNT 4.01 10^6/uL (4.70-6.10); RED CELL DISTRIBUTION WIDTH 16.1 % (12.0-15.0); WHITE BLOOD COUNT 6.2 x10^3/uL (4.8-10.8)
[2017-12-19 05:29] LABS: HB2 TOTAL 12.9 g/dL; HEMOGLOBIN A1C 0.63 g/dL; HEMOGLOBIN A1C % 6.6 % (4.6-6.2)
[2017-12-19] MEDS: SODIUM CHLORIDE FLUSH 0.9% 10 ML SYRINGE IVP SCH ×3 (06:56→19:22)
[2017-12-19] MEDS: INSULIN ASPART 300 UNIT/3 ML PEN SUBQ SCH ×4 (08:33→21:52)
[2017-12-19] MEDS: TOPIRAMATE 25 MG TABLET PO SCH ×2 (08:35→21:42)
[2017-12-19] MEDS: FINASTERIDE 5 MG TABLET PO SCH (08:36)
[2017-12-19] MEDS: lamoTRIgine 25 MG TABLET PO SCH ×2 (08:36→21:43)
[2017-12-19] MEDS: metFORMIN 500 MG TABLET PO SCH ×2 (08:36→17:03)
[2017-12-19] MEDS: PHENYTOIN ER 100 MG CAPSULE PO SCH ×2 (08:36→21:45)
[2017-12-19] MEDS: lamoTRIgine 100 MG TABLET PO SCH ×2 (08:36→21:43)
[2017-12-19] MEDS: ASPIRIN EC 81 MG TABLET PO SCH (08:36)
[2017-12-19] MEDS: TAMSULOSIN 0.4 MG CAPSULE PO SCH (08:36)
[2017-12-19] MEDS: METOPROLOL SUCCINATE 25 MG TABLET PO SCH (08:36)
[2017-12-19] MEDS: levETIRAcetam 250 MG TABLET PO SCH ×2 (08:37→21:43)
[2017-12-19] MEDS: FAMOTIDINE 20 MG TABLET PO SCH (08:37)
[2017-12-19] MEDS: POLYETHYLENE GLYCOL 3350 17 GM PACKET PO SCH (08:37)
[2017-12-19] MEDS: ENOXAPARIN 40 MG/0.4 ML SYRINGE SUBQ SCH (08:37)
--- NOTE | 2017-12-19 10:29 | PROVIDER PROGRESS NOTE ---
Subjective - Prog Note Date Prog Note Date: 12/19/17 Prog Note Time: 10:29 - Subjective Pt reports feeling: Improved Subjective: Patient and daughter, Kelsey who was at his bedside for his exam requests a void trial. Patient denies chest pain, SOB, N/V or a new cough. Current Medications - Current Medications Current Medications: Active Medications Acetaminophen (Tylenol) 650 mg PO Q4HR PRN PRN Reason: Pain or Fever > 38C (100.4F) Aspirin (Ecotrin) 81 mg PO DAILY [facility] Last Admin: 12/19/17 08:36 Dose: 81 mg Enoxaparin Sodium (Lovenox) 40 mg SUBQ DAILY [facility] Last Admin: 12/19/17 08:37 Dose: 40 mg Famotidine (Pepcid) 20 mg PO DAILY [facility] Last Admin: 12/19/17 08:37 Dose: 20 mg Finasteride (Proscar) 5 mg PO DAILY [facility] Last Admin: 12/19/17 08:36 Dose: 5 mg Glipizide (Glucotrol Xl) 2.5 mg PO DAILY [facility] Last Admin: 12/19/17 08:35 Dose: 2.5 mg Hydromorphone HCl (Dilaudid Inj Syringe) 0.5 mg IVP Q2H PRN PRN Reason: Pain 8 to 10 Ceftriaxone Sodium 1 gm/ (Sodium Chloride) 100 mls @ 200 mls/hr IV ONCE JAKE Stop: 12/20/17 02:00 Levofloxacin (Levaquin 750 Mg/150 Ml) 750 mg in 150 mls @ 100 mls/hr IV Q24H [facility] Sodium Chloride (Normal Saline 0.9%) 1,000 mls @ 100 mls/hr IV .Q10H [facility] Last Admin: 12/19/17 00:53 Dose: 100 mls/hr Insulin Aspart (Novolog) 1 - 5 unit SUBQ 0800,1200,1700,2100 JAKE PRN Reason: Protocol Last Admin: 12/19/17 08:33 Dose: Not Given Lamotrigine (Lamictal) 25 mg PO BID [facility] Last Admin: 12/19/17 08:36 Dose: 25 mg Lamotrigine (Lamictal) 200 mg PO BID [facility] Last Admin: 12/19/17 08:36 Dose: 200 mg Levetiracetam (Keppra) 1,000 mg PO BID [facility] Last Admin: 12/19/17 08:37 Dose: 1,000 mg Metformin HCl (Glucophage) 1,000 mg PO BIDWM [facility] Last Admin: 12/19/17 08:36 Dose: 1,000 mg Metoprolol Succinate (Toprol Xl) 25 mg PO DAILY [facility] Last Admin: 12/19/17 08:36 Dose: 25 mg Phenytoin Sodium (Dilantin) 300 mg PO DAILY [facility] Last Admin: 12/19/17 08:36 Dose: 300 mg Phenytoin Sodium (Dilantin) 400 mg PO QPM [facility] Polyethylene Glycol (Miralax) 17 gm PO DAILY [facility] Last Admin: 12/19/17 08:37 Dose: 17 gm Prochlorperazine Edisylate (Compazine Inj) 10 mg IVP Q6HR PRN PRN Reason: Nausea / Vomiting Senna (Senokot) 17.2 mg PO DAILY PRN PRN Reason: Constipation Sodium Chloride (Normal Saline Flush 0.9%) 10 ml IVP PRN PRN PRN Reason: NEEDED PER PROVIDER ORDERS Sodium Chloride (Normal Saline Flush 0.9%) 10 ml IVP Q8HR [facility] Last Admin: 12/19/17 06:56 Dose: Not Given Tamsulosin HCl (Flomax) 0.4 mg PO DAILY [facility] Last Admin: 12/19/17 08:36 Dose: 0.4 mg Topiramate (Topamax) 50 mg PO BID [facility] Last Admin: 12/19/17 08:35 Dose: 50 mg Glipizide [Glipizide ER] 2.5 mg PO DAILY 05/18/13 Phenytoin Sodium Extended [Dilantin] 300 mg PO DAILY 05/18/13 Objective - Vital Signs/Intake & Output Reviewed Vital Signs: Yes Vital Signs: Vital Signs x48h Temp Pulse Resp BP Pulse Ox 12/19/17 07:42 36.6 C 81 18 142/70 H 80 L Intake & Output: Intake & Output 12/16/17 12/17/17 12/18/17 12/19/17 23:59 23:59 23:59 23:59 Intake Total 1100 560 Output Total 1300 Balance 1100 -740 - Objective General Appearance: positive: No acute distress, Alert Eyes Bilateral: positive: Normal inspection, PERRL ENT: positive: ENT inspection nml, Pharynx nml, No signs of dehydration Neck: positive: Nml inspection, Thyroid nml, No JVD, Stiff neck Respiratory: positive: Chest non-tender, No respiratory distress, Breath sounds nml, Other (diminished.) Cardiovascular: positive: Regular rate & rhythm, Decreased pulse(s) Peripheral Pulses: 2+ Radial (R), 2+ Radial (L) Abdomen: positive: Non-tender, No organomegaly, Nml bowel sounds, No distention Back: positive: Nml inspection Skin: positive: No rash, Warm, Dry Extremities: positive: Non-tender, Full ROM, Nml appearance, Pedal edema (LLE greater than RLE) Neurologic/Psychiatric: positive: Disoriented to time, Weakness, Sensory loss, Depressed mood/affect, Other (baseline debility.) Reflexes: Bicep (R): 2+, Bicep (L): 2+ - Lab Results Fish Bones: 12/19/17 04:13 12/19/17 04:13 Other Labs: Lab Results x24hrs 12/19/17 12/19/17 12/19/17 Range/Units 04:13 04:13 04:13 WBC 6.2 (4.8-10.8) x10^3/uL RBC 4.01 L (4.70-6.10) 10^6/uL Hgb 11.6 L (14.0-18.0) g/dL Hct 35.4 L (42.0-52.0) % MCV 88.3 (80.0-94.0) fL MCH 28.8 (27.0-31.0) pg MCHC 32.6 (32.0-36.0) g/dL RDW 16.1 H (12.0-15.0) % Plt Count 275 (130-450) 10^3/uL MPV 7.5 (7.4-11.4) fL Neut # 3.8 (1.5-6.6) 10^3/uL Lymph # 1.5 (1.5-3.5) 10^3/uL Boyd # 0.6 (0.0-1.0) 10^3/uL Eos # 0.2 (0.0-0.7) 10^3/uL Baso # 0.0 (0.0-0.1) 10^3/uL Absolute Nucleated RBC 0.00 x10^3/uL Nucleated RBC % 0.0 /100WBC Sodium 136 (135-145) mmol/L Potassium 3.9 (3.5-5.0) mmol/L Chloride 102 (101-111) mmol/L Carbon Dioxide 25 (21-32) mmol/L Anion Gap 9.0 (6-13) BUN 11 (6-20) mg/dL Creatinine 0.8 (0.6-1.2) mg/dL Estimated GFR (MDRD) 96 (>89) Glucose 158 H (70-100) mg/dL Glycated Hemoglobin 6.6 H (4.6-6.2) % Estim Average Glucose 143 H (70-100) Calcium 8.3 L (8.5-10.3) mg/dL - Diagnostic Imaging Diagnostic Imaging Results: positive: Final report reviewed Assessment/Plan - Problem List (1) Dehydration Impression: Patient appeared dehydrated upon admission and given above normal creatinine level of 1.2. This improved to 0.8 after IVFs and patient appears much improved today. Plan: Continue to monitor labs and physical condition. (2) Seizure Impression: Patient was a recent resident of [facility], but has recently been back home with family. Per daughter, Kelsey, the patient had likely a "grand mal" catagory seizure this time and even bit his lip which can be appreciated on his lower left lip upon exam. Plan: Continue with anti-seizure medications. Hard-script of PO lorazepam given to daughter, Kelsey today to prevent more episodes like today as per her request. (3) UTI (urinary tract infection) Impression: A UA was performed in the ED that may be + for UTI, cultures pending. Patient has had an indwelling crenshaw catheter since at least 09/2017 for likely BPH verses neurogenic bladder. He had an upcoming urology appointment that is now postponed due to this admission. Kelsey, patient's daughter requests a voiding trial. Plan: Voiding trial with straight cath orders to no more than 3 xs. Plan to re -insert indwelling in the event patient continues to retain urine and treat for UTI. 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 Subsequently, he has cognitive dysfunction and a seizure disorder. Plan: Continue family supported home living. (5) Type 2 diabetes mellitus with neurologic complication, with long-term current use of insulin Impression: Patient had a slightly elevated HgA1C of 6.6. He takes glipizide and Metformin at home which has been continued here. He is not insulin dependent, but placed on SSI, Lantus, and blood glucose checks while in the hospital. Plan: Continue insulin coverage while in the hospital. 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
[2017-12-19] MEDS: HYDROmorphone 1 MG/ML SYRINGE IVP PRN ×2 (19:22→21:54)
[2017-12-19] MEDS ORDERED: A & D OINTMENT 5 GM PACKET TOP PRN (19:30)
[2017-12-19] MEDS ORDERED: cefTRIAXone 1 GM in SODIUM CHLORIDE 0.9% MINIBAG 100 ML IV SCH (22:00)
[2017-12-19] MEDS: levoFLOXacin 750 MG/150 ML 750 MG/150 ML BAG IV SCH (22:04)
[2017-12-19] MEDS: LIDOCAINE 2% URO-JET 5 ML SYRINGE UR PRN (22:15)
[2017-12-20] MEDS: SODIUM CHLORIDE 0.9% 1,000 ML IV SCH ×2 (00:10→00:18)
[2017-12-20] MEDS: LIDOCAINE 2% URO-JET 5 ML SYRINGE UR PRN (01:40)
[2017-12-20] MEDS ORDERED: CALAMINE/ZINC OXIDE 118 ML BOTTLE TOP PRN (01:50)
[2017-12-20] MEDS ORDERED: MIN OIL/DIMETHICON/COCONUT OIL 92 GM TUBE TOP PRN (02:07)
[2017-12-20] MEDS: SODIUM CHLORIDE FLUSH 0.9% 10 ML SYRINGE IVP SCH ×3 (02:43→20:37)
[2017-12-20] MEDS: INSULIN ASPART 300 UNIT/3 ML PEN SUBQ SCH ×4 (08:06→20:43)
[2017-12-20] MEDS: metFORMIN 500 MG TABLET PO SCH ×2 (08:47→17:06)
[2017-12-20] MEDS: levETIRAcetam 250 MG TABLET PO SCH ×2 (08:48→20:36)
[2017-12-20] MEDS: METOPROLOL SUCCINATE 25 MG TABLET PO SCH (08:48)
[2017-12-20] MEDS: PHENYTOIN ER 100 MG CAPSULE PO SCH ×2 (08:48→20:36)
[2017-12-20] MEDS: TOPIRAMATE 25 MG TABLET PO SCH ×2 (08:48→20:36)
[2017-12-20] MEDS: FAMOTIDINE 20 MG TABLET PO SCH (08:48)
[2017-12-20] MEDS: FINASTERIDE 5 MG TABLET PO SCH (08:48)
[2017-12-20] MEDS: POLYETHYLENE GLYCOL 3350 17 GM PACKET PO SCH (08:49)
[2017-12-20] MEDS: lamoTRIgine 25 MG TABLET PO SCH ×2 (08:49→20:37)
[2017-12-20] MEDS: ENOXAPARIN 40 MG/0.4 ML SYRINGE SUBQ SCH (08:49)
[2017-12-20] MEDS: ASPIRIN EC 81 MG TABLET PO SCH (08:49)
[2017-12-20] MEDS: lamoTRIgine 100 MG TABLET PO SCH ×2 (08:49→20:36)
[2017-12-20] MEDS: TAMSULOSIN 0.4 MG CAPSULE PO SCH (08:49)
--- NOTE | 2017-12-20 12:55 | PROVIDER PROGRESS NOTE ---
Subjective - Prog Note Date Prog Note Date: 12/20/17 Prog Note Time: 10:00 - Subjective Pt reports feeling: Improved Subjective: Alirio has been sleepy today, but has no complaints when asked. He denies SOB, chest pain, N/V or a new cough. Current Medications - Current Medications Current Medications: Active Medications Acetaminophen (Tylenol) 650 mg PO Q4HR PRN PRN Reason: Pain or Fever > 38C (100.4F) Aspirin (Ecotrin) 81 mg PO DAILY [facility] Last Admin: 12/20/17 08:49 Dose: 81 mg Calamine (Calamine) 118 applic TOP PRN PRN PRN Reason: ITCHING Enoxaparin Sodium (Lovenox) 40 mg SUBQ DAILY [facility] Last Admin: 12/20/17 08:49 Dose: 40 mg Famotidine (Pepcid) 20 mg PO DAILY [facility] Last Admin: 12/20/17 08:48 Dose: 20 mg Finasteride (Proscar) 5 mg PO DAILY [facility] Last Admin: 12/20/17 08:48 Dose: 5 mg Glipizide (Glucotrol Xl) 2.5 mg PO DAILY [facility] Last Admin: 12/20/17 08:48 Dose: 2.5 mg Hydromorphone HCl (Dilaudid Inj Syringe) 0.5 mg IVP Q2H PRN PRN Reason: Pain 8 to 10 Last Admin: 12/19/17 21:54 Dose: 0.5 mg Levofloxacin (Levaquin 750 Mg/150 Ml) 750 mg in 150 mls @ 100 mls/hr IV Q24H [facility] Last Infusion: 12/19/17 23:30 Dose: Infused Sodium Chloride (Normal Saline 0.9%) 1,000 mls @ 30 mls/hr IV .[id number] [facility] Last Infusion: 12/20/17 07:13 Dose: 30 mls/hr Insulin Aspart (Novolog) 1 - 5 unit SUBQ 0800,1200,1700,2100 [facility] PRN Reason: Protocol Last Admin: 12/20/17 08:06 Dose: Not Given Lamotrigine (Lamictal) 25 mg PO BID [facility] Last Admin: 12/20/17 08:49 Dose: 25 mg Lamotrigine (Lamictal) 200 mg PO BID [facility] Last Admin: 12/20/17 08:49 Dose: 200 mg Levetiracetam (Keppra) 1,000 mg PO BID [facility] Last Admin: 12/20/17 08:48 Dose: 1,000 mg Lidocaine HCl (Xylocaine Uro-Jet 2%) 2.5 ml UR Q4H PRN PRN Reason: PAIN Last Admin: 12/20/17 01:40 Dose: 2.5 ml Metformin HCl (Glucophage) 1,000 mg PO BIDWM [facility] Last Admin: 12/20/17 08:47 Dose: 1,000 mg Metoprolol Succinate (Toprol Xl) 25 mg PO DAILY [facility] Last Admin: 12/20/17 08:48 Dose: 25 mg Mineral Oil (Cavilon) 1 applic TOP PRN PRN PRN Reason: Skin Care Last Admin: 12/20/17 02:42 Dose: 1 applic Phenytoin Sodium (Dilantin) 300 mg PO DAILY [facility] Last Admin: 12/20/17 08:48 Dose: 300 mg Phenytoin Sodium (Dilantin) 400 mg PO QPM [facility] Last Admin: 12/19/17 21:45 Dose: 400 mg Polyethylene Glycol (Miralax) 17 gm PO DAILY [facility] Last Admin: 12/20/17 08:49 Dose: Not Given Prochlorperazine Edisylate (Compazine Inj) 10 mg IVP Q6HR PRN PRN Reason: Nausea / Vomiting Senna (Senokot) 17.2 mg PO DAILY PRN PRN Reason: Constipation Sodium Chloride (Normal Saline Flush 0.9%) 10 ml IVP PRN PRN PRN Reason: NEEDED PER PROVIDER ORDERS Sodium Chloride (Normal Saline Flush 0.9%) 10 ml IVP Q8HR [facility] Last Admin: 12/20/17 02:43 Dose: Not Given Tamsulosin HCl (Flomax) 0.4 mg PO DAILY [facility] Last Admin: 12/20/17 08:49 Dose: 0.4 mg Topiramate (Topamax) 50 mg PO BID [facility] Last Admin: 12/20/17 08:48 Dose: 50 mg Vitamin A/Vitamin D (Vitamin A & D Ointment) 1 applic TOP TID PRN PRN Reason: Dry Lips Phenytoin Sodium Extended [Dilantin] 300 mg PO DAILY 05/18/13 glipiZIDE ER [Glucotrol Xl] 2.5 mg PO DAILY 12/19/17 Objective - Vital Signs/Intake & Output Reviewed Vital Signs: Yes Vital Signs: Vital Signs x48h Temp Pulse Resp BP Pulse Ox 12/20/17 07:50 36.5 C 79 19 127/73 98 Intake & Output: Intake & Output 12/17/17 12/18/17 12/19/17 12/20/17 23:59 23:59 23:59 23:59 Intake Total 1100 4242.667 1297.5 Output Total 3650 4350 Balance 1100 592.667 -3052.5 - Objective General Appearance: positive: No acute distress, Alert, Lethargic (sleepy, but baseline for him as per daughter's report.) Eyes Bilateral: positive: Normal inspection ENT: positive: ENT inspection nml, Pharynx nml, No signs of dehydration Neck: positive: Nml inspection, Thyroid nml, No JVD, Stiff neck Respiratory: positive: Chest non-tender, No respiratory distress, Other ( diminshed.) Cardiovascular: positive: Regular rate & rhythm, No gallop, Decreased pulse(s) Peripheral Pulses: 2+ Radial (R), 2+ Radial (L) Abdomen: positive: Non-tender, No organomegaly, Nml bowel sounds Back: positive: Nml inspection Skin: positive: No rash, Warm, Dry Extremities: positive: Non-tender, Pedal edema (left greater than right) Neurologic/Psychiatric: positive: Disoriented to time, Weakness, Sensory loss, Slurred/abnml speech, Depressed mood/affect, Other (baseline cognitive delay) Reflexes: Bicep (R): 1+, Bicep (L): 1+ - Lab Results Fish Bones: 12/19/17 04:13 12/19/17 04:13 - Diagnostic Imaging Diagnostic Imaging Results: positive: Final report reviewed Assessment/Plan - Problem List (1) Dehydration Impression: Patient appeared dehydrated upon admission and given above normal creatinine level of 1.2. This improved to 0.8 after IVFs and patient appears much improved. Plan: Continue to monitor labs and physical condition. Encourage meals. (2) Seizure Impression: Patient was a recent resident of [facility] Age, but has recently been back home with family. Per daughter, Kelsey, the patient had likely a "grand mal" category seizure this time and even bit his lip which can be appreciated on his lower left lip upon exam. Plan: Continue with anti-seizure medications. Hard-script of PO lorazepam given to daughter, Kelsey today to prevent more episodes like today as per her request. (3) UTI (urinary tract infection) Impression: A UA was performed in the ED that may be + for UTI, cultures pending. Patient has had an indwelling crenshaw catheter since at least 09/2017 for likely BPH verses neurogenic bladder. He had an upcoming urology appointment that is now postponed due to this admission. Kelsey, patient's daughter requests a voiding trial. Voiding trial was failed, so an indwelling crenshaw will remain, with urology follow up. Plan: Maintain indwelling crenshaw and treat for UTI. 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 Subsequently, he has cognitive dysfunction and a seizure disorder. Plan: Continue family supported home living. (5) Type 2 diabetes mellitus with neurologic complication, with long-term current use of insulin Impression: Patient had a slightly elevated HgA1C of 6.6. He takes glipizide and Metformin at home which has been continued here. He is not insulin dependent, but placed on SSI, Lantus, and blood glucose checks while in the hospital. Plan: Continue insulin coverage while in the hospital. 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
[2017-12-20] MEDS: levoFLOXacin 750 MG/150 ML 750 MG/150 ML BAG IV SCH (22:32)
[2017-12-21] MEDS: SODIUM CHLORIDE FLUSH 0.9% 10 ML SYRINGE IVP SCH ×2 (01:58→12:11)
--- NOTE | 2017-12-21 07:19 | DISCHARGE SUMMARY ---
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 Cognitive and neurobehavioral dysfunction following brain injury (G31.89) chronic, stable. Dehydration (E86.0) resolved. UTI (urinary tract infection) (N39.0) ongoing, treatment to continue. Type 2 diabetes mellitus with neurologic complication, with long-term current use of insulin (E11.49) chronic, stable. - HPI History of Present Illness: Mehdi Salas is a 72-year old white male with a past medical history of a brain tumor with craniotomy, seizure disorder, cognitive dysfunction, chronic indwelling crenshaw catheter from neurogenic bladder verses BPH, urosepsis, DM type 2, colon polyps, hypertension, hyperlipidemia, prior ID. Today, the patient had witnessed eye blinking and then a grand mal seizure and was brought to the ED. Once in the ED a head CT was obtained and showed no acute changes, no hemorrhage or midline shift. A UA was obtained which look suspicious for UTI. The patient was scheduled to see the urologist today, which will be rescheduled. The patient will be admitted for IV hydration and IV antibiotics. He was given Rochephin in the ED, which will be continued and add Levofloxacin while we wait for culture results. - HOSPITAL COURSE Hospital Course: The following diagnoses were prevalent during this hospital stay: (1) Dehydration- Patient appeared dehydrated upon admission and given above normal creatinine level of 1.2. This improved to 0.8 after IVFs and patient appears much improved. Patient was continuously monitored in regards to labs and physical condition. He was encouraged to eat his meals. (2) Seizure- Patient was a recent resident of [facility] Age, but has recently been back home with family. Per daughter, Kelsey, the patient had likely a "grand mal " category seizure this time and even bit his lip which can be appreciated on his lower left lip upon exam. Patient was continued on his anti-seizure medications. A Hard-script of PO lorazepam was given to daughter, Kelsey to prevent more episodes per her request. (3) UTI (urinary tract infection)- A UA was performed in the ED and was + for UTI. Cultures preliminary are growing out staph aureus. Patient has had an indwelling rcenshaw catheter since at least 07/2017 for likely BPH verses neurogenic bladder. He had an upcoming urology appointment that is now postponed due to this admission. Kelsey, patient's daughter requests a voiding trial. Voiding trial was failed x3, so an indwelling crenshaw will remain, and recommend urology follow up. Continuous treatment for UTI using IV antibiotics that were changed to PO at home. 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 Subsequently, he has cognitive dysfunction and a seizure disorder. Patient gets continuous family support at home living. (5) Type 2 diabetes mellitus with neurologic complication, with long-term current use of insulin- Patient had a slightly elevated HgA1C of 6.6. He takes glipizide and Metformin at home. Metformin will be on hold as per hospital protocol and glipizide was continued here. He is not insulin dependent , but placed on SSI, Lantus, and blood glucose checks while in the hospital. Home medications were resumed for home and there were no changes made. Disposition: The patient's daughter, Kelsey was called and updated of clearance to return home. I personally spoke to her and she confirmed that she would be able to transport via private car. The patient was in fact, transported via private car in stable condition. Prescriptions were transmitted to pharmacy of choice and patient's daughter was advised of follow up care. - ALLERGIES Allergies/Adverse Reactions: Allergies Allergy/AdvReac Type Severity Reaction Status Date / Time No Known Drug Allergies Allergy Verified 11/05/17 18:09 - MEDICATIONS Home Medications: Ambulatory Orders Medication Instructions Recorded Confirmed Phenytoin Sodium Extended 300 mg PO DAILY 05/18/13 12/19/17 [Dilantin] Acetaminophen 325 mg PO Q4H PRN #30 11/09/17 12/19/17 Aspirin [Aspirin EC] 81 mg PO DAILY #30 11/09/17 12/19/17 Calcium Carbonate/Vitamin D3 1 tab PO DAILY #30 11/09/17 12/19/17 [Calcium 500-Vit D3 200 Tablet] Finasteride 5 mg PO DAILY #30 11/09/17 12/19/17 Levetiracetam [Keppra] 1,000 mg PO BID #60 11/09/17 12/19/17 Lovastatin 40 mg PO QPM #30 11/09/17 12/19/17 Metformin HCl [Fortamet] 1,000 mg PO BIDWM #30 11/09/17 12/19/17 Metoprolol Succinate 25 mg PO DAILY #30 11/09/17 12/19/17 Phenytoin Sodium Extended 400 mg PO QPM #30 11/09/17 12/19/17 Senna [Senokot] 17.2 mg PO DAILY PRN #30 11/09/17 12/19/17 Tamsulosin [Flomax] 0.4 mg PO DAILY #30 11/09/17 12/19/17 Topiramate 50 mg PO BID #30 11/09/17 12/19/17 lamoTRIgine [LaMICtal] 25 mg PO BID #30 11/09/17 12/19/17 lamoTRIgine [LaMICtal] 200 mg PO BID #30 11/09/17 12/19/17 Lorazepam [Ativan] 1 mg PO Q2H PRN #25 tablet 12/19/17 glipiZIDE ER [Glucotrol Xl] 2.5 mg PO DAILY 12/19/17 12/19/17 Levofloxacin [Levaquin] 750 mg PO DAILY 10 Days #10 tablet 12/21/17 Saccharomyces Boulardii [Florastor] 250 mg PO BID 20 Days #40 capsule 12/21/17 - PHYSICAL EXAM AT DISCHARGE General Appearance: positive: No acute distress, Alert Eyes Bilateral: positive: Normal inspection, PERRL ENT: positive: ENT inspection nml, Pharynx nml, No signs of dehydration Neck: positive: Nml inspection, Thyroid nml, No JVD, Stiff neck Respiratory: positive: Chest non-tender, No respiratory distress, Breath sounds nml Cardiovascular: positive: Regular rate & rhythm, No gallop, Decreased pulse(s) Peripheral Pulses: positive: 1+ Abdomen: positive: Non-tender, No organomegaly, Nml bowel sounds, No distention , Other (rounded, soft) Back: positive: Nml inspection Skin: positive: No rash, Warm, Dry, Pallor Extremities: positive: Non-tender, Full ROM, Nml appearance, Pedal edema Neurologic/Psychiatric: positive: Disoriented to time, Weakness, Sensory loss, Slurred/abnml speech, Depressed mood/affect, Other (baseline mentation.) Reflexes: Bicep (R): 2+, Bicep (L): 2+ - LABS Result Diagrams: 12/21/17 07:28 12/21/17 07:28 - DIAGNOSTIC IMAGING Diagnostic Imaging Results: Final report reviewed Diagnostic Imaging Results Comments: EXAM: CT HEAD EXAM DATE: 12/18/2017 08:51 PM. CLINICAL HISTORY: Seizure right sided flaccid. COMPARISON: 07/10/2017. TECHNIQUE: Multiaxial CT images were obtained from the foramen magnum to the vertex. Reformats: Coronal. IV contrast: None. In accordance with CT protocol optimization, one or more of the following dose reduction techniques were utilized for this exam: automated exposure control, adjustment of mA and/or KV based on patient size, or use of iterative reconstructive technique. FINDINGS: Parenchyma: Again seen are multiple areas of encephalomalacia in the left frontal, parietal and temporal lobes. There is associated volume loss. There is encephalomalacia in the inferior right cerebellar hemisphere which appears unchanged. Negative for acute hemorrhage. No midline shift. Extraaxial Spaces: No subdural or epidural collections identified. Ventricles: Left lateral ventricle is dilated secondary to encephalomalacia. Sinuses and Orbits: There is partial opacification of the left ethmoid and frontal sinuses. Bones: Previous left craniectomy and reconstruction. Other: None. IMPRESSION: 1. Negative for acute hemorrhage or midline shift. 2. Multiple areas of left cerebral and right cerebellar encephalomalacia and volume loss. Similar to previous. - FOLLOW UP Follow Up: Disposition: 01 Home, Self Care Condition: Good Prescriptions: Levofloxacin [Levaquin] 750 mg PO DAILY 10 Days #10 tablet Lorazepam [Ativan] 1 mg PO Q2H PRN #25 tablet PRN Reason: Neuromuscular Blockade Saccharomyces Boulardii [Florastor] 250 mg PO BID 20 Days #40 capsule Diet: Diabetic Activity Restrictions: No Restrictions Shower Restrictions: No Driving Restrictions: Yes Weight Bearing: Full Weight Additional Instructions or Follow Up instructions: You were admitted for a seizure. Images of your head showed no acute abnormalities. You were kept on the same medications that you take at home. A prescription was given by me to your daughter, Kelsey. This was a paper-script that needs to be delivered to your pharmacy of choice. These are to used in the event of another seizure at home or in public. Your urine was tested that showed a likely UTI. Cultures are also positive, but sensitivities are not quite back yet. You will continue on oral antibiotics. A voiding trial was completed. Your indwelling catheter was taken out, but on 3 occasions, you needed your bladder drained and over 1000ml was drained each time. This also caused discomfort for you. A new indwelling crenshaw catheter was inserted and remains in place. Follow up with a urologist is still recommended. Please see your PCP in the next week as a follow up to this hospital stay. - TIME SPENT Time Spent in Discharge (Minutes): 45
[2017-12-21 07:34] VITALS: BP 135/65
[2017-12-21 07:46] LABS: BASOPHILS % (AUTO) 0.4 %; EOSINOPHILS # (AUTO) 0.5 10^3/uL (0.0-0.7); EOSINOPHILS % (AUTO) 7.2 %; HGB - HEMOGLOBIN 12.5 g/dL (14.0-18.0); LYMPHOCYTES # (AUTO) 1.9 10^3/uL (1.5-3.5); MEAN CORPUSCULAR HEMOGLOBIN 29.5 pg (27.0-31.0); MEAN CORPUSCULAR HGB CONC 33.4 g/dL (32.0-36.0); MEAN CORPUSCULAR VOLUME 88.3 fL (80.0-94.0); MEAN PLATELET VOLUME 7.2 fL (7.4-11.4); MONOCYTES # (AUTO) 0.6 10^3/uL (0.0-1.0); NEUTROPHILS # (AUTO) 3.3 10^3/uL (1.5-6.6); NEUTROPHILS % (AUTO) 52.4 %; PLT - PLATELET COUNT 308 10^3/uL (130-450); RED BLOOD COUNT 4.23 10^6/uL (4.70-6.10); WHITE BLOOD COUNT 6.2 x10^3/uL (4.8-10.8)
[2017-12-21 08:09] LABS: ALBUMIN 3.4 g/dL (3.2-5.5); ALBUMIN/GLOBULIN RATIO 0.8 (1.0-2.2); BILIRUBIN,TOTAL 0.3 mg/dL (0.2-1.0); CALCIUM 8.9 mg/dL (8.5-10.3); CREATININE 0.9 mg/dL (0.6-1.2); TOTAL PROTEIN 7.8 g/dL (6.7-8.2)
[2017-12-21] MEDS: INSULIN ASPART 300 UNIT/3 ML PEN SUBQ SCH ×2 (08:47→12:10)
[2017-12-21] MEDS: FAMOTIDINE 20 MG TABLET PO SCH (08:49)
[2017-12-21] MEDS: TOPIRAMATE 25 MG TABLET PO SCH (08:49)
[2017-12-21] MEDS: TAMSULOSIN 0.4 MG CAPSULE PO SCH (08:49)
[2017-12-21] MEDS: METOPROLOL SUCCINATE 25 MG TABLET PO SCH (08:49)
[2017-12-21] MEDS: ASPIRIN EC 81 MG TABLET PO SCH (08:49)
[2017-12-21] MEDS: FINASTERIDE 5 MG TABLET PO SCH (08:49)
[2017-12-21] MEDS: PHENYTOIN ER 100 MG CAPSULE PO SCH (08:50)
[2017-12-21] MEDS: levETIRAcetam 250 MG TABLET PO SCH (08:50)
[2017-12-21] MEDS: lamoTRIgine 100 MG TABLET PO SCH (08:51)
[2017-12-21] MEDS: ENOXAPARIN 40 MG/0.4 ML SYRINGE SUBQ SCH (08:51)
[2017-12-21] MEDS: metFORMIN 500 MG TABLET PO SCH (08:57)
[2017-12-21] MEDS: POLYETHYLENE GLYCOL 3350 17 GM PACKET PO SCH (08:58)
[2017-12-21] MEDS: lamoTRIgine 25 MG TABLET PO SCH (09:05)
[2017-12-21] MEDS: SODIUM CHLORIDE 0.9% 1,000 ML IV SCH (14:34)
== END 2017-12-21 15:00 | disposition home or self-care (01) | DRG 101 ==
LOC: EDUNIT# → ED 20:11 → MS3 21:56
PROVIDERS: ADMIT Internal Medicine; ATTEND Nurse Practitioner
DX: G40.409 Other generalized epilepsy and epileptic syndromes, not intractable, without status epilepticus (principal); G40.909 Epilepsy, unspecified, not intractable, without status epilepticus; N39.0 Urinary tract infection, site not specified; T83.511A Infection and inflammatory reaction due to indwelling urethral catheter, initial encounter; G31.89 Other specified degenerative diseases of nervous system; E11.9 Type 2 diabetes mellitus without complications; N40.0 Benign prostatic hyperplasia without lower urinary tract symptoms; E86.0 Dehydration; E78.00 Pure hypercholesterolemia, unspecified; Z86.010 Personal history of colon polyps; Z79.4 Long term (current) use of insulin; N31.9 Neuromuscular dysfunction of bladder, unspecified; I10 Essential (primary) hypertension; E78.5 Hyperlipidemia, unspecified; I25.2 Old myocardial infarction; E11.42 Type 2 diabetes mellitus with diabetic polyneuropathy
CPT/HCPCS: 36415; 51701; 70450; 80048; 80053; 80177; 80185; 81001; 81003; 83036; 83690; 83735; 84484; 85025; 87040; 87086; 96361; 96365; 99284; 99285

== ENCOUNTER 2018-01-09 20:35 | Outpatient (CLI) | payer MEDICARE, OTHER | END 2018-01-09 20:36 | disposition critical access hospital (66) | LOC: EMS 20:35 | PROVIDERS: ATTEND Surgery | DX: R19.7 Diarrhea, unspecified (principal); R30.9 Painful micturition, unspecified; R41.0 Disorientation, unspecified | CPT/HCPCS: A0425; A0429 ==

== ENCOUNTER 2018-01-09 20:52 | Emergency (ER) | payer MEDICARE, OTHER ==
[2018-01-09] MEDS ORDERED: SODIUM CHLORIDE 0.9% 1,000 ML IV ONE (20:57)
--- NOTE | 2018-01-09 21:02 | ED Physician Documentation ---
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 Patient is presenting with diarrhea for the last three days and abdominal distention. 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 Review of Systems Unable to obtain: Confused PD PAST MEDICAL HISTORY - Past Medical History Cardiovascular: Hypertension, High cholesterol, [place] Respiratory: None Neuro: Seizure disorder, Other Endocrine/Autoimmune: Type 2 diabetes GI: Colon polyps : Benign prostate hypertrophy HEENT: None Psych: None Musculoskeletal: None Derm: None - Past Surgical History Past Surgical History: Yes General: Colonoscopy Neuro: Craniotomy - Present Medications Home Medications: Ambulatory Orders Medication Instructions Recorded Confirmed Phenytoin Sodium Extended 300 mg PO DAILY 05/18/13 12/19/17 [Dilantin] Acetaminophen 325 mg PO Q4H PRN #30 11/09/17 12/19/17 Aspirin [Aspirin EC] 81 mg PO DAILY #30 11/09/17 12/19/17 Calcium Carbonate/Vitamin D3 1 tab PO DAILY #30 11/09/17 12/19/17 [Calcium 500-Vit D3 200 Tablet] Finasteride 5 mg PO DAILY #30 11/09/17 12/19/17 Levetiracetam [Keppra] 1,000 mg PO BID #60 11/09/17 12/19/17 Lovastatin 40 mg PO QPM #30 11/09/17 12/19/17 Metformin HCl [Fortamet] 1,000 mg PO BIDWM #30 11/09/17 12/19/17 Metoprolol Succinate 25 mg PO DAILY #30 11/09/17 12/19/17 Phenytoin Sodium Extended 400 mg PO QPM #30 11/09/17 12/19/17 Senna [Senokot] 17.2 mg PO DAILY PRN #30 11/09/17 12/19/17 Tamsulosin [Flomax] 0.4 mg PO DAILY #30 11/09/17 12/19/17 Topiramate 50 mg PO BID #30 11/09/17 12/19/17 lamoTRIgine [LaMICtal] 25 mg PO BID #30 11/09/17 12/19/17 lamoTRIgine [LaMICtal] 200 mg PO BID #30 11/09/17 12/19/17 Lorazepam [Ativan] 1 mg PO Q2H PRN #25 tablet 12/19/17 glipiZIDE ER [Glucotrol Xl] 2.5 mg PO DAILY 12/19/17 12/19/17 Levofloxacin [Levaquin] 750 mg PO DAILY 10 Days #10 tablet 12/21/17 Saccharomyces Boulardii [Florastor] 250 mg PO BID 20 Days #40 capsule 12/21/17 Cephalexin [Keflex] 500 mg PO Q8HR 14 Days capsule 01/09/18 Loperamide [Imodium] 2 mg PO QID #14 capsule 01/09/18 - Allergies Allergies/Adverse Reactions: Allergies Allergy/AdvReac Type Severity Reaction Status Date / Time No Known Drug Allergies Allergy Verified 01/09/18 21:04 - Social History Does the pt smoke?: No Smoking Status: Never smoker Does the pt drink ETOH?: Yes Does the pt have substance abuse?: No - Immunizations Immunizations are current?: Yes - POLST Patient has POLST: No POLST Status: Full Code PD ED PE NORMAL - Vitals Vital signs reviewed: Yes - HEENT HEENT: Atraumatic, PERRL - Neck Neck: Supple, no meningeal sign - Cardiac Cardiac: RRR, No murmur - Respiratory Respiratory: No respiratory distress - Derm Derm: Normal color, Warm and dry - Extremities Extremities: No deformity - Neuro Neuro: No motor deficit Eye Opening: Spontaneous PD ED PE EXPANDED - HEENT HEENT: Dry mucous membranes, Dental decay - Abdomen Abdomen: Distended, Tender to palpation, Generalized/diffuse. No: Rebound, Guarding Results - Vitals Vitals: Vital Signs - 24 hr 01/09/18 01/09/18 01/09/18 20:55 22:32 23:06 Temperature 37.8 C H Heart Rate 98 109 H 106 H Respiratory 18 15 16 Rate Blood Pressure 152/91 H 146/71 H 139/76 H O2 Saturation 100 100 98 Oxygen O2 Source Room air - Labs Labs: Microbiology 01/09/18 21:15 Clostridium difficile (PCR) - Final Stool Laboratory Tests 01/09/18 01/09/18 01/09/18 21:21 21:21 21:21 WBC 12.9 H RBC 4.59 L Hgb 13.3 L Hct 41.0 L MCV 89.3 MCH 28.9 MCHC 32.4 RDW 16.0 H Plt Count 288 MPV 7.5 Neut # 10.4 H Lymph # 1.0 L [place] # 1.3 H Eos # 0.2 Baso # 0.0 Absolute Nucleated RBC 0.03 Nucleated RBC % 0.3 VBG pH 7.349 VBG pCO2 43.5 VBG pO2 25.2 VBG HCO3 23.4 VBG Total CO2 24.8 VBG O2 Saturation 47.0 L VBG Base Excess -2.3 L Sodium 136 Potassium 3.9 Chloride 103 Carbon Dioxide 23 Anion Gap 10.0 BUN 36 H Creatinine 1.7 H Estimated GFR (MDRD) 40 L Glucose 154 H Calcium 9.2 Magnesium 1.9 Total Bilirubin 0.4 AST 23 ALT 19 Alkaline Phosphatase 84 Total Protein 8.9 H Albumin 4.3 Globulin 4.6 H Albumin/Globulin Ratio 0.9 L Lipase 28 Urine Color Urine Clarity Urine pH Ur Specific [place] Urine Protein Urine Glucose (UA) Urine Ketones Urine Occult Blood Urine Nitrite Urine Bilirubin Urine Urobilinogen Ur Leukocyte Esterase Urine RBC Urine WBC Ur Squamous Epith Cells Amorphous Sediment Urine Bacteria Ur Microscopic Review Urine Culture Comments 01/09/18 21:25 WBC RBC Hgb Hct MCV MCH MCHC RDW Plt Count MPV Neut # Lymph # [place] # Eos # Baso # Absolute Nucleated RBC Nucleated RBC % VBG pH VBG pCO2 VBG pO2 VBG HCO3 VBG Total CO2 VBG O2 Saturation VBG Base Excess Sodium Potassium Chloride Carbon Dioxide Anion Gap BUN Creatinine Estimated GFR (MDRD) Glucose Calcium Magnesium Total Bilirubin AST ALT Alkaline Phosphatase Total Protein Albumin Globulin Albumin/Globulin Ratio Lipase Urine Color YELLOW Urine Clarity HAZY Urine pH 5.0 Ur Specific [place] 1.020 Urine Protein NEGATIVE Urine Glucose (UA) NEGATIVE Urine Ketones NEGATIVE Urine Occult Blood LARGE H Urine Nitrite POSITIVE H Urine Bilirubin NEGATIVE Urine Urobilinogen 0.2 (NORMAL) Ur Leukocyte Esterase MODERATE H Urine RBC 11-25 H Urine WBC >25 H Ur Squamous Epith Cells NONE SEEN Amorphous Sediment Moderate Urine Bacteria Few Ur Microscopic Review INDICATED Urine Culture Comments INDICATED - Rads (name of study) ct abd pelvis Radiology: Final report received (findings consistent with cystitis, pyelonephritis) PD MEDICAL DECISION MAKING - ED course Complexity details: reviewed old records, reviewed results, re-evaluated patient , considered differential, d/w patient ED course: Patient was seen and examined at bedside. IV access was gained and labs were drawn. patient was treated with a fluid bolus. due to the abdominal distention imaging was ordered. Hooker catheter was replaced. Patient's diagnostics were consistent with pyelonephritis. Patient was treated with rocephin 1gm. Patient was able to tolerate PO without difficulty and was appropriate for outpatient antibiotics. Family was contacted and made aware of the findings and the plan. Patient was stable for discharge with outpatient follow up. Departure - Departure Disposition: 01 Home, Self Care Clinical Impression: Pyelonephritis Condition: Good Instructions: Pyelonephritis Dc Follow-Up: Clarice Burton PA-C [Primary Care Provider] - Prescriptions: Cephalexin [Keflex] 500 mg PO Q8HR 14 Days capsule Loperamide [Imodium] 2 mg PO QID #14 capsule Comments: Your diagnostics today revealed dehydration. It is important to stay well hydrated. You will be on antibiotics three times a day for the next two weeks. You should take the antibiotics with yogurt or probiotics to help reduce the GI side effects. You can take loperamide for the diarrhea. you should follow up with your doctor if your symptoms persist. you may return to the emergency department at any time for new, worsening or uncontrollable symptoms.
[2018-01-09 21:26] LABS: VBG BASE EXCESS -2.3 mmol/L (-2 - +2); VBG PCO2 43.5 mmHg (41-51); VBG PH 7.349 (7.31-7.41); VBG PO2 25.2 mmHg (25-47); VBG TOTAL CO2 24.8 mmol/L (24-29)
[2018-01-09 21:27] LABS: BASOPHILS % (AUTO) 0.2 %; EOSINOPHILS # (AUTO) 0.2 10^3/uL (0.0-0.7); EOSINOPHILS % (AUTO) 1.2 %; HGB - HEMOGLOBIN 13.3 g/dL (14.0-18.0); LYMPHOCYTES % (AUTO) 7.6 %; MEAN CORPUSCULAR HEMOGLOBIN 28.9 pg (27.0-31.0); MEAN CORPUSCULAR HGB CONC 32.4 g/dL (32.0-36.0); MEAN CORPUSCULAR VOLUME 89.3 fL (80.0-94.0); MEAN PLATELET VOLUME 7.5 fL (7.4-11.4); MONOCYTES # (AUTO) 1.3 10^3/uL (0.0-1.0); MONOCYTES % (AUTO) 9.8 %; NEUTROPHILS # (AUTO) 10.4 10^3/uL (1.5-6.6); NEUTROPHILS % (AUTO) 81.2 %; PLT - PLATELET COUNT 288 10^3/uL (130-450); RED BLOOD COUNT 4.59 10^6/uL (4.70-6.10); WHITE BLOOD COUNT 12.9 x10^3/uL (4.8-10.8)
[2018-01-09 21:37] LABS: BILIRUBIN,URINE NEGATIVE (NEGATIVE); GLUCOSE, URINE (UA) NEGATIVE (NEGATIVE); KETONES,URINE (UA) NEGATIVE (NEGATIVE); LEUKOCYTE ESTERASE, URINE MODERATE (NEGATIVE); NITRITE,URINE POSITIVE (NEGATIVE); OCCULT BLOOD,URINE LARGE (NEGATIVE); PROTEIN,URINE NEGATIVE (NEGATIVE); UROBILINOGEN,URINE 0.2 (NORMAL) E.U./dL (NORMAL)
[2018-01-09 21:38] LABS: ALBUMIN 4.3 g/dL (3.2-5.5); ALBUMIN/GLOBULIN RATIO 0.9 (1.0-2.2); BILIRUBIN,TOTAL 0.4 mg/dL (0.2-1.0); CALCIUM 9.2 mg/dL (8.5-10.3); CREATININE 1.7 mg/dL (0.6-1.2); MAGNESIUM 1.9 mg/dL (1.7-2.8); TOTAL PROTEIN 8.9 g/dL (6.7-8.2)
[2018-01-09 21:42] LABS: CLARITY,URINE HAZY (CLEAR)
[2018-01-09 21:52] LABS: AMORPHOUS SEDIMENT,UR Moderate /LPF; BACTERIA,URINE Few /HPF (None Seen); SQUAMOUS EPITHELIAL CELL,UR NONE SEEN (<= Few)
--- NOTE | 2018-01-09 22:54 | CT Report ---
EXAM: CT ABDOMEN AND PELVIS EXAM DATE: 01/09/2018 10:27 PM. CLINICAL HISTORY: Abdominal distention COMPARISONS: None. TECHNIQUE: Routine axial helical CT imaging was performed through the abdomen and pelvis without IV c ontrast. Reconstructions: Coronal and sagittal. In accordance with CT protocol optimization, one or more of the following dose reduction techniques w ere utilized for this exam: automated exposure control, adjustment of mA and/or KV based on patient s ize, or use of iterative reconstructive technique. FINDINGS: Lung Bases: Unremarkable. Abdominal Organs: There is mild bilateral hydronephrosis, hydroureter, and perinephric stranding. Non obstructing stones are seen. The liver, spleen, pancreas, and adrenal glands demonstrate no significa nt noncontrast abnormalities. There is a subcentimeter left adrenal nodule which is probably benign. Gallbladder/bile ducts: There is cholelithiasis. No evidence of cholecystitis. No bile duct dilatatio n. Peritoneal Cavity: No free fluid, free air or jarrett adenopathy. Bowel is grossly unremarkable. There is no evidence of appendicitis. Pelvic Organs: The urinary bladder is decompressed. There is pericystic fat stranding. Vasculature: Unremarkable. Other: None. IMPRESSION: 1. There is mild bilateral hydronephrosis and hydroureter. Mild perinephric stranding. No stones are seen. Findings could be secondary to infection or possibly reflux. 2. The urinary bladder is decompressed. There is pericystic fat stranding. Findings are suspicious fo r cystitis. 3. There is cholelithiasis. No evidence of cholecystitis. 4. No acute gastrointestinal tract abnormalities are seen. Referring Provider Line: [phone] SITE ID: [id number]
[2018-01-09] MEDS ORDERED: cefTRIAXone 1 GM in SODIUM CHLORIDE 0.9% MINIBAG 100 ML IV STA (23:13)
[2018-01-10 05:17] VITALS: BP 110/59
== END 2018-01-10 05:00 | disposition home or self-care (01) ==
LOC: EDUNIT# → ED 20:52
DX: N12 Tubulo-interstitial nephritis, not specified as acute or chronic (principal); E86.0 Dehydration; R14.0 Abdominal distension (gaseous); R19.7 Diarrhea, unspecified; E11.9 Type 2 diabetes mellitus without complications; Z79.84 Long term (current) use of oral hypoglycemic drugs; I10 Essential (primary) hypertension; G40.909 Epilepsy, unspecified, not intractable, without status epilepticus; Z79.899 Other long term (current) drug therapy; Z79.82 Long term (current) use of aspirin
CPT/HCPCS: 36415; 51702; 74176; 80053; 81001; 81003; 82803; 83690; 83735; 85025; 87086; 87493; 96361; 96365; 99283; 99285

== ENCOUNTER 2018-02-23 11:32 | Outpatient (CLI) | payer MEDICARE, OTHER | END 2018-02-23 11:33 | disposition critical access hospital (66) | LOC: EMS 11:32 | PROVIDERS: ATTEND Surgery | DX: R10.30 Lower abdominal pain, unspecified (principal); R39.89 Other symptoms and signs involving the genitourinary system | CPT/HCPCS: A0425; A0429 ==

== ENCOUNTER 2018-02-23 11:56 | Emergency (ER) | payer MEDICARE, OTHER ==
--- NOTE | 2018-02-23 12:38 | ED Physician Documentation ---
History of Present Illness - Stated complaint Stated Complaint: CATHETER PROBLEM - Chief complaint Chief Complaint: General - History obtained from History obtained from: Patient, Family, EMS - History of Present Illness Timing: Yesterday Pain level max: 0 Pain level now: 0 Improved by: nothing Worsened by: nothing - Additonal information Additional information: Patient is a 72-year-old gentleman who presents to the emergency department after having his Hooker catheter replaced yesterday in [place] and noticed blood draining from the catheter this morning. Denies any pain. 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 Patient is a poor historian. Review of Systems Constitutional: denies: Fever, Chills Nose: denies: Rhinorrhea / runny nose, Congestion Cardiac: denies: Chest pain / pressure Respiratory: denies: Cough GI: denies: Nausea, Vomiting, Diarrhea Skin: denies: Rash Musculoskeletal: denies: Neck pain, Back pain Neurologic: denies: Headache PD PAST MEDICAL HISTORY - Past Medical History Cardiovascular: Hypertension, High cholesterol, [place] Respiratory: None Neuro: Dementia, Seizure disorder, Other Endocrine/Autoimmune: Type 2 diabetes GI: Colon polyps : Benign prostate hypertrophy, Indwelling catheter HEENT: None Psych: None Musculoskeletal: None Derm: None - Past Surgical History Past Surgical History: Yes General: Colonoscopy Neuro: Craniotomy - Present Medications Home Medications: Ambulatory Orders Medication Instructions Recorded Confirmed Phenytoin Sodium Extended 300 mg PO DAILY 05/18/13 02/15/18 [Dilantin] Acetaminophen 325 mg PO Q4H PRN #30 11/09/17 02/15/18 Aspirin [Aspirin EC] 81 mg PO DAILY #30 11/09/17 02/15/18 Calcium Carbonate/Vitamin D3 1 tab PO DAILY #30 11/09/17 02/15/18 [Calcium 500-Vit D3 200 Tablet] Finasteride 5 mg PO DAILY #30 11/09/17 02/15/18 Levetiracetam [Keppra] 1,000 mg PO BID #60 11/09/17 02/15/18 Lovastatin 40 mg PO QPM #30 11/09/17 02/15/18 Metformin HCl [Fortamet] 1,000 mg PO BIDWM #30 11/09/17 02/15/18 Metoprolol Succinate 25 mg PO DAILY #30 11/09/17 02/15/18 Phenytoin Sodium Extended 400 mg PO QPM #30 11/09/17 02/15/18 Senna [Senokot] 17.2 mg PO DAILY PRN #30 11/09/17 02/15/18 Tamsulosin [Flomax] 0.4 mg PO DAILY #30 11/09/17 02/15/18 Topiramate 50 mg PO BID #30 11/09/17 02/15/18 lamoTRIgine [LaMICtal] 25 mg PO BID #30 11/09/17 02/15/18 lamoTRIgine [LaMICtal] 200 mg PO BID #30 11/09/17 02/15/18 Lorazepam [Ativan] 1 mg PO Q2H PRN #25 tablet 12/19/17 02/15/18 glipiZIDE ER [Glucotrol Xl] 2.5 mg PO DAILY 12/19/17 02/15/18 Levofloxacin [Levaquin] 750 mg PO DAILY 10 Days #10 tablet 12/21/17 02/15/18 Saccharomyces Boulardii [Florastor] 250 mg PO BID 20 Days #40 capsule 12/21/17 02/15/18 Loperamide [Imodium] 2 mg PO QID #14 capsule 01/09/18 02/15/18 Lisinopril 10 mg ORAL DAILY 02/15/18 02/15/18 Cephalexin [Keflex] 500 mg PO Q6H #28 capsule 02/23/18 - Allergies Allergies/Adverse Reactions: Allergies Allergy/AdvReac Type Severity Reaction Status Date / Time No Known Drug Allergies Allergy Verified 01/09/18 21:04 - Social History Does the pt smoke?: No Smoking Status: Never smoker Does the pt drink ETOH?: Yes Does the pt have substance abuse?: No - Immunizations Immunizations are current?: Yes - POLST Patient has POLST: No POLST Status: Full Code PD ED PE NORMAL - Vitals Vital signs reviewed: Yes - General General: No acute distress, Well developed/nourished, Other (alert, oriented to person and place) - HEENT HEENT: PERRL, Moist mucous membranes - Neck Neck: Supple, no meningeal sign - Cardiac Cardiac: RRR, Strong equal pulses - Respiratory Respiratory: No respiratory distress, Clear bilaterally - Abdomen Abdomen: Soft, Non tender, Non distended - Male Male : Other (normal external exam, catheter draining bloody urine, no clots visible.) - Derm Derm: Warm and dry - Neuro Neuro: Other (alert) Results - Vitals Vitals: Vital Signs - 24 hr 02/23/18 02/23/18 12:00 14:41 Temperature 36.2 C L Heart Rate 89 88 Respiratory 18 16 Rate Blood Pressure 176/90 H 117/71 O2 Saturation 98 97 Oxygen O2 Source Room air - Labs Labs: Laboratory Tests 02/23/18 13:33 Urine Color LT RED Urine Clarity CLOUDY Urine pH 6.0 Ur Specific [place] 1.015 Urine Protein 100 H Urine Glucose (UA) NEGATIVE Urine Ketones NEGATIVE Urine Occult Blood LARGE H Urine Nitrite NEGATIVE Urine Bilirubin NEGATIVE Urine Urobilinogen 0.2 (NORMAL) Ur Leukocyte Esterase SMALL H Urine RBC TNTC H Urine WBC 6-10 H Ur Squamous Epith Cells NONE SEEN Urine Bacteria Moderate H Ur Microscopic Review INDICATED Urine Culture Comments INDICATED PD MEDICAL DECISION MAKING - ED course Complexity details: reviewed results, re-evaluated patient, considered differential, d/w patient, d/w family ED course: Patient is a 72-year-old gentleman with an indwelling Hooker catheter, replaced yesterday and now has bloody urine today. 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 Does appear to have a UTI. The bladder was irrigated with saline and some small clots were removed but the catheter is draining well. Will place on antibiotics for home and follow-up closely with his doctor. Patient and family counseled regarding signs and symptoms for which I believe and urgent re-evaluation would be necessary. Patient with good understanding of and agreement to plan and is comfortable going home at this time This document was made in part using voice recognition software. While efforts are made to proofread this document, sound alike and grammatical errors may occur. Departure - Departure Disposition: Home, Self Care Clinical Impression: UTI (urinary tract infection) Qualifiers: Urinary tract infection type: acute cystitis Hematuria presence: with hematuria Qualified Code(s): N30.01 - Acute cystitis with hematuria Condition: Good Instructions: ED UTI Cystitis Male Follow-Up: your,doctor in 3 days for recheck [Other] Prescriptions: Cephalexin [Keflex] 500 mg PO Q6H #28 capsule Comments: The bleeding should decrease over the next 24 hours. Take all antibiotics until gone. Return for worsening pain or if the catheter stops draining. Discharge Date/Time: 02/23/18 15:00
[2018-02-23 13:57] LABS: BILIRUBIN,URINE NEGATIVE (NEGATIVE); GLUCOSE, URINE (UA) NEGATIVE (NEGATIVE); KETONES,URINE (UA) NEGATIVE (NEGATIVE); LEUKOCYTE ESTERASE, URINE SMALL (NEGATIVE); NITRITE,URINE NEGATIVE (NEGATIVE); OCCULT BLOOD,URINE LARGE (NEGATIVE); PROTEIN,URINE 100 mg/dL (NEGATIVE); UROBILINOGEN,URINE 0.2 (NORMAL) E.U./dL (NORMAL)
[2018-02-23 13:59] LABS: CLARITY,URINE CLOUDY (CLEAR)
[2018-02-23 14:15] LABS: BACTERIA,URINE Moderate /HPF (None Seen); RBC,URINE TNTC /HPF (0-5); SQUAMOUS EPITHELIAL CELL,UR NONE SEEN (<= Few)
[2018-02-23] MEDS ORDERED: cephALEXin 250 MG CAPSULE PO STA (14:30)
[2018-02-23 14:42] VITALS: BP 117/71
== END 2018-02-23 15:00 | disposition home or self-care (01) ==
LOC: EDUNIT# → ED 11:56
DX: N30.01 Acute cystitis with hematuria (principal); Z96.0 Presence of urogenital implants; N31.9 Neuromuscular dysfunction of bladder, unspecified; I10 Essential (primary) hypertension; E11.9 Type 2 diabetes mellitus without complications; G40.909 Epilepsy, unspecified, not intractable, without status epilepticus; F03.90 Unspecified dementia, unspecified severity, without behavioral disturbance, psychotic disturbance, mood disturbance, and anxiety; Z79.82 Long term (current) use of aspirin; N40.0 Benign prostatic hyperplasia without lower urinary tract symptoms
CPT/HCPCS: 51700; 81001; 87077; 87086; 87181; 99283; A9270; 81003

== ENCOUNTER 2018-04-09 10:14 | Outpatient (CLI) | payer MEDICARE, OTHER | END 2018-04-09 10:15 | disposition critical access hospital (66) | LOC: EMS 10:14 | PROVIDERS: ATTEND Surgery | DX: R56.9 Unspecified convulsions (principal) | CPT/HCPCS: A0425; A0429 ==

== ENCOUNTER 2018-04-09 10:37 | Emergency (ER) | payer MEDICARE, OTHER ==
--- NOTE | 2018-04-09 10:50 | ED Physician Documentation ---
PD HPI SEIZURE - Stated complaint Stated Complaint: POSS SZ - Chief complaint Chief Complaint: Neuro - History obtained from History obtained from: Patient - History of Present Illness Timing - onset: Today Witnessed: Witnessed Number of seizures: Single Description of seizure activity: Generalized Injury during seizure: None Associated symptoms: None History of seizures: Known seizure disorder Contributing factors: No: Off meds, Out of meds, Changed meds, Low blood sugar, Head injury, Substance abuse, EtOH withdrawal, Benzo withdrawal, Sleep deprivation Similar symptoms before: Diagnosis (seizure related to brain tumor) Recently seen: Not recently seen - Additional information Additional information: 72-year-old male with a known seizure disorder status post brain tumor resection has had another seizure today. He was noted by his [id number] to have shaking of a generalized nature and have some difficulty speaking afterward. When medics went to his house to pick him up they found him to have some difficulty speaking and this cleared in route to the hospital. His course was consistent with a postictal period. Review of Systems Unable to obtain: Confused Constitutional: denies: Fever Eyes: denies: Decreased vision Ears: denies: Ear pain Nose: denies: Congestion Throat: denies: Sore throat Cardiac: denies: Chest pain / pressure Respiratory: denies: Dyspnea, Cough GI: denies: Nausea, Vomiting, Constipation, Diarrhea : reports: Other (The patient acknowledges a history of an increased stream). denies: Dysuria, Frequency Skin: denies: Rash Musculoskeletal: denies: Neck pain, Back pain, Extremity pain Neurologic: reports: Generalized weakness, Seizure, Confused. denies: Focal weakness, Numbness PD PAST MEDICAL HISTORY - Past Medical History Cardiovascular: Hypertension, High cholesterol, [place] Respiratory: None Endocrine/Autoimmune: Type 2 diabetes GI: Colon polyps : Benign prostate hypertrophy, Indwelling catheter HEENT: None Psych: None Musculoskeletal: None Derm: None - Past Surgical History Past Surgical History: Yes General: Colonoscopy Neuro: Craniotomy - Present Medications Home Medications: Ambulatory Orders Medication Instructions Recorded Confirmed Phenytoin Sodium Extended 300 mg PO DAILY 05/18/13 02/15/18 [Dilantin] Acetaminophen 325 mg PO Q4H PRN #30 11/09/17 02/15/18 Aspirin [Aspirin EC] 81 mg PO DAILY #11/09/17 02/15/18 Calcium Carbonate/Vitamin D3 1 tab PO DAILY #30 11/09/17 02/15/18 [Calcium 500-Vit D3 200 Tablet] Finasteride 5 mg PO DAILY #30 11/09/17 02/15/18 Levetiracetam [Keppra] 1,000 mg PO BID #60 11/09/17 02/15/18 Lovastatin 40 mg PO QPM #30 11/09/17 02/15/18 Metformin HCl [Fortamet] 1,000 mg PO BIDWM #30 11/09/17 02/15/18 Metoprolol Succinate 25 mg PO DAILY #30 11/09/17 02/15/18 Phenytoin Sodium Extended 400 mg PO QPM #30 11/09/17 02/15/18 Senna [Senokot] 17.2 mg PO DAILY PRN #30 11/09/17 02/15/18 Tamsulosin [Flomax] 0.4 mg PO DAILY #30 11/09/17 02/15/18 Topiramate 50 mg PO BID #30 11/09/17 02/15/18 lamoTRIgine [LaMICtal] 25 mg PO BID #30 11/09/17 02/15/18 lamoTRIgine [LaMICtal] 200 mg PO BID #30 11/09/17 02/15/18 Lorazepam [Ativan] 1 mg PO Q2H PRN #25 tablet 12/19/17 02/15/18 glipiZIDE ER [Glucotrol Xl] 2.5 mg PO DAILY 12/19/17 02/15/18 Levofloxacin [Levaquin] 750 mg PO DAILY 10 Days #10 tablet 12/21/17 02/15/18 Saccharomyces Boulardii [Florastor] 250 mg PO BID 20 Days #40 capsule 12/21/17 02/15/18 Loperamide [Imodium] 2 mg PO QID #14 capsule 01/09/18 02/15/18 Lisinopril 10 mg ORAL DAILY 02/15/18 02/15/18 Cephalexin [Keflex] 500 mg PO Q6H #28 capsule 02/23/18 Levofloxacin [Levaquin] 500 mg PO DAILY #10 tablet 04/09/18 - Allergies Allergies/Adverse Reactions: Allergies Allergy/AdvReac Type Severity Reaction Status Date / Time No Known Drug Allergies Allergy Verified 01/09/18 21:04 - Social History Does the pt smoke?: No Smoking Status: Never smoker Does the pt drink ETOH?: Yes Does the pt have substance abuse?: No - Immunizations Immunizations are current?: Yes - POLST Patient has POLST: No POLST Status: Full Code PD ED PE NORMAL - Vitals Vital signs reviewed: Yes (normal ) - General General: No acute distress, Well developed/nourished, Other (smiles broadly and jokes denies illness ) - HEENT HEENT: Atraumatic, PERRL, EOMI - Neck Neck: Supple, no meningeal sign - Cardiac Cardiac: RRR, No murmur - Respiratory Respiratory: No respiratory distress, Clear bilaterally - Abdomen Abdomen: Soft, Non tender - Back Back: No CVA TTP, No spinal TTP - Derm Derm: Normal color, Warm and dry, No rash - Extremities Extremities: No deformity, No edema - Neuro Neuro: No motor deficit, No sensory deficit Eye Opening: Spontaneous Motor: Obeys Commands Verbal: Confused GCS Score: 14 - Psych Psych: Normal mood, Normal affect Results - Vitals Vitals: Vital Signs - 24 hr 04/09/18 04/09/18 10:40 15:43 Temperature 36.9 C 36.4 C L Heart Rate 72 57 L Respiratory 16 17 Rate Blood Pressure 127/62 108/66 O2 Saturation 100 98 Oxygen O2 Source Room air - Labs Labs: Laboratory Tests 04/09/18 04/09/18 04/09/18 11:25 11:25 11:25 WBC 6.1 RBC 3.91 L Hgb 11.4 L Hct 35.1 L MCV 89.7 MCH 29.2 MCHC 32.5 RDW 16.5 H Plt Count 310 MPV 7.5 Neut # (Auto) 3.9 Lymph # (Auto) 1.4 L [place] # (Auto) 0.6 Eos # (Auto) 0.2 Baso # (Auto) 0.0 Absolute Nucleated RBC 0.00 Nucleated RBC % 0.0 Sodium 132 L Potassium 4.3 Chloride 103 Carbon Dioxide 19 L Anion Gap 10.0 BUN 31 H Creatinine 1.3 H Estimated GFR (MDRD) 55 L Glucose 180 H Calcium 8.7 Total Bilirubin 0.4 AST 20 ALT 17 Alkaline Phosphatase 85 Troponin I < 0.04 Total Protein 8.4 H Albumin 3.8 Globulin 4.6 H Albumin/Globulin Ratio 0.8 L Lipase 34 Urine Color Urine Clarity Urine pH Ur Specific [place] Urine Protein Urine Glucose (UA) Urine Ketones Urine Occult Blood Urine Nitrite Urine Bilirubin Urine Urobilinogen Ur Leukocyte Esterase Urine RBC Urine WBC Ur Squamous Epith Cells Urine Bacteria Ur Microscopic Review Urine Culture Comments Phenytoin 35.4 04/09/18 15:20 WBC RBC Hgb Hct MCV MCH MCHC RDW Plt Count MPV Neut # (Auto) Lymph # (Auto) [place] # (Auto) Eos # (Auto) Baso # (Auto) Absolute Nucleated RBC Nucleated RBC % Sodium Potassium Chloride Carbon Dioxide Anion Gap BUN Creatinine Estimated GFR (MDRD) Glucose Calcium Total Bilirubin AST ALT Alkaline Phosphatase Troponin I Total Protein Albumin Globulin Albumin/Globulin Ratio Lipase Urine Color YELLOW Urine Clarity CLOUDY Urine pH 6.5 Ur Specific [place] 1.015 Urine Protein TRACE Urine Glucose (UA) NEGATIVE Urine Ketones NEGATIVE Urine Occult Blood MODERATE H Urine Nitrite NEGATIVE Urine Bilirubin NEGATIVE Urine Urobilinogen 0.2 (NORMAL) Ur Leukocyte Esterase SMALL H Urine RBC 0-5 Urine WBC >25 H Ur Squamous Epith Cells NONE SEEN Urine Bacteria None Seen Ur Microscopic Review INDICATED Urine Culture Comments INDICATED Phenytoin - Rads (name of study) 2 veiw chest Radiology: Prelim report reviewed (Impression: 1. Elongated lingular and right middle lobe opacities are probably atelectasis or scarring. No convincing consolidation.), EMP read indepedently, See rad report Procedures - IVC sono (time) 1045 Bedside IVC sono: IVC measures (cm) (1.89), IVC collapsed c insp (cm) (0.89), Euvolemia PD MEDICAL DECISION MAKING - ED course Complexity details: reviewed results, re-evaluated patient, considered differential, d/w patient, d/w family ED course: 72-year-old male with a history of brain tumor surgically removed and a seizure disorder has had a seizure today. He arrives to the emergency department denying any current illness he does appear somewhat confused and he is not able to cooperate fully with the entire review of systems. He is found to have urinary tract infection and on review of his history this is been the case previously when he has had urinary tract infection he has had seizure as well. He has Dilantin level is therapeutic we will make level is pending. He is administered Levaquin orally. He does not appear to require hospitalization. Departure - Departure Disposition: 01 Home, Self Care Clinical Impression: Seizure UTI (urinary tract infection) Qualifiers: Urinary tract infection type: acute cystitis Hematuria presence: with hematuria Qualified Code(s): N30.01 - Acute cystitis with hematuria Condition: Stable Instructions: ED UTI Cystitis Male Follow-Up: Clarice Burton PA-C [Provider Admit Priv/Credential] - Prescriptions: Levofloxacin [Levaquin] 500 mg PO DAILY #10 tablet
[2018-04-09 11:36] LABS: BASOPHILS % (AUTO) 0.4 %; EOSINOPHILS # (AUTO) 0.2 10^3/uL (0.0-0.7); EOSINOPHILS % (AUTO) 2.8 %; HGB - HEMOGLOBIN 11.4 g/dL (14.0-18.0); LYMPHOCYTES # (AUTO) 1.4 10^3/uL (1.5-3.5); LYMPHOCYTES % (AUTO) 23.7 %; MEAN CORPUSCULAR HEMOGLOBIN 29.2 pg (27.0-31.0); MEAN CORPUSCULAR HGB CONC 32.5 g/dL (32.0-36.0); MEAN CORPUSCULAR VOLUME 89.7 fL (80.0-94.0); MEAN PLATELET VOLUME 7.5 fL (7.4-11.4); MONOCYTES # (AUTO) 0.6 10^3/uL (0.0-1.0); MONOCYTES % (AUTO) 9.4 %; NEUTROPHILS # (AUTO) 3.9 10^3/uL (1.5-6.6); NEUTROPHILS % (AUTO) 63.7 %; PLT - PLATELET COUNT 310 10^3/uL (130-450); RED BLOOD COUNT 3.91 10^6/uL (4.70-6.10); RED CELL DISTRIBUTION WIDTH 16.5 % (12.0-15.0); WHITE BLOOD COUNT 6.1 x10^3/uL (4.8-10.8)
[2018-04-09 11:43] LABS: ALBUMIN 3.8 g/dL (3.2-5.5); ALBUMIN/GLOBULIN RATIO 0.8 (1.0-2.2); BILIRUBIN,TOTAL 0.4 mg/dL (0.2-1.0); CALCIUM 8.7 mg/dL (8.5-10.3); CREATININE 1.3 mg/dL (0.6-1.2); TOTAL PROTEIN 8.4 g/dL (6.7-8.2)
--- NOTE | 2018-04-09 12:03 | XRAY Report ---
EXAM: CHEST RADIOGRAPHY EXAM DATE: 04/09/2018 11:48 AM. CLINICAL HISTORY: Seizure. COMPARISON: Chest x-ray 11/06/2017. TECHNIQUE: 2 views. FINDINGS: Lungs/Pleura: Elongated lingular and right middle lobe opacities. No convincing focal consolidation. No pneumothorax or pleural effusion. Mediastinum: Heart and mediastinal contours are unremarkable. Other: None. IMPRESSION: 1. Elongated lingular and right middle lobe opacities are probably from atelectasis or scarring. 2. No convincing consolidation. [facility] Referring Provider Line: [phone] SITE ID: [id number]
[2018-04-09 12:07] LABS: PHENYTOIN (DILANTIN) 35.4 ug/mL
[2018-04-09 15:36] LABS: BILIRUBIN,URINE NEGATIVE (NEGATIVE); GLUCOSE, URINE (UA) NEGATIVE (NEGATIVE); KETONES,URINE (UA) NEGATIVE (NEGATIVE); LEUKOCYTE ESTERASE, URINE SMALL (NEGATIVE); NITRITE,URINE NEGATIVE (NEGATIVE); OCCULT BLOOD,URINE MODERATE (NEGATIVE); PH,URINE 6.5 PH (5.0-7.5); PROTEIN,URINE TRACE mg/dL (NEGATIVE); UROBILINOGEN,URINE 0.2 (NORMAL) E.U./dL (NORMAL)
[2018-04-09 15:38] LABS: CLARITY,URINE CLOUDY (CLEAR)
[2018-04-09 15:48] LABS: BACTERIA,URINE None Seen /HPF (None Seen); RBC,URINE 0-5 /HPF (0-5); SQUAMOUS EPITHELIAL CELL,UR NONE SEEN (<= Few)
[2018-04-09] MEDS ORDERED: levoFLOXacin 250 MG TABLET PO STA (15:54)
[2018-04-09 17:43] VITALS: BP 111/67
== END 2018-04-09 17:44 | disposition home or self-care (01) ==
LOC: EDUNIT# → ED 10:37
DX: G40.909 Epilepsy, unspecified, not intractable, without status epilepticus (principal); N30.01 Acute cystitis with hematuria; I10 Essential (primary) hypertension; E78.00 Pure hypercholesterolemia, unspecified; I25.2 Old myocardial infarction; E11.9 Type 2 diabetes mellitus without complications; Z79.82 Long term (current) use of aspirin; Z79.84 Long term (current) use of oral hypoglycemic drugs
CPT/HCPCS: 36415; 71046; 80053; 80175; 80185; 81001; 83690; 84484; 85025; 87086; 99283; 99284; A9270; 81003; 87077; 87181

== ENCOUNTER 2018-04-10 18:00 | Outpatient (CLI) | payer MEDICARE, OTHER | END 2018-04-10 18:01 | disposition critical access hospital (66) | LOC: EMS 18:00 | PROVIDERS: ATTEND Surgery | DX: M25.511 Pain in right shoulder (principal); W01.0XXA Fall on same level from slipping, tripping and stumbling without subsequent striking against object, initial encounter; Y92.009 Unspecified place in unspecified non-institutional (private) residence as the place of occurrence of the external cause | CPT/HCPCS: A0425; A0429 ==

== ENCOUNTER 2018-04-10 18:22 | Inpatient (IN) | payer MEDICARE, OTHER ==
--- NOTE | 2018-04-10 19:21 | XRAY Preliminary Report ---
Exam: XR SHOULDER 3 VIEW RT IMPRESSION: 1. Widening of acromioclavicular joint, question ligamentous injury. 2. No fracture or shoulder dislocation. [facility] SITE ID: [id number]
--- NOTE | 2018-04-10 19:21 | XRAY Report ---
EXAM: RIGHT SHOULDER RADIOGRAPHY EXAM DATE: 04/10/2018 07:08 PM. CLINICAL HISTORY: Right shoulder injury. COMPARISON: None. TECHNIQUE: 3 views. FINDINGS: Bones: No cortical step-off or acute fracture. Joints: There is widening of the acromioclavicular joint. Glenohumeral joint space appears preserved. Soft tissues: The visualized hemithorax is unremarkable. No soft tissue swelling. IMPRESSION: 1. Widening of acromioclavicular joint, question ligamentous injury. 2. No fracture or shoulder dislocation. [facility] Referring Provider Line: [phone] SITE ID: [id number]
[2018-04-10] MEDS ORDERED: HYDROcod/ACETAM 5/325 MG TABLET PO STA (19:31)
--- NOTE | 2018-04-10 19:33 | ED Physician Documentation ---
PD HPI UPPER EXT INJURY - Stated complaint Stated Complaint: FELL, RIGHT SHOULDER PAIN - Chief complaint Chief Complaint: Ext Problem - History obtained from History obtained from: Patient, EMS - History of Present Illness Location: Right, Shoulder (Because of some neurologic issues he does not usually walk much, he walks further than normal today and tripped and fell landing directly on the right shoulder. No other injuries but he is having moderate pain of the right shoulder over the acromioclavicular joint and a lot of difficulty with range of motion although it is already better than it was earlier today.) Review of Systems Constitutional: reports: Reviewed and negative Throat: reports: Reviewed and negative Cardiac: reports: Reviewed and negative Respiratory: reports: Reviewed and negative PD PAST MEDICAL HISTORY - Past Medical History Past Medical History: Yes Cardiovascular: Hypertension, High cholesterol, ND Respiratory: None Endocrine/Autoimmune: Type 2 diabetes GI: Colon polyps : Benign prostate hypertrophy, Indwelling catheter HEENT: None Psych: None Musculoskeletal: None Derm: None - Past Surgical History Past Surgical History: Yes General: Colonoscopy Neuro: Craniotomy - Present Medications Home Medications: Ambulatory Orders Medication Instructions Recorded Confirmed Phenytoin Sodium Extended 300 mg PO DAILY 05/18/13 02/15/18 [Dilantin] Acetaminophen 325 mg PO Q4H PRN #30 11/09/17 02/15/18 Aspirin [Aspirin EC] 81 mg PO DAILY #30 11/09/17 02/15/18 Calcium Carbonate/Vitamin D3 1 tab PO DAILY #30 11/09/17 02/15/18 [Calcium 500-Vit D3 200 Tablet] Finasteride 5 mg PO DAILY #30 11/09/17 02/15/18 Levetiracetam [Keppra] 1,000 mg PO BID #60 11/09/17 02/15/18 Lovastatin 40 mg PO QPM #30 11/09/17 02/15/18 Metformin HCl [Fortamet] 1,000 mg PO BIDWM #30 11/09/17 02/15/18 Metoprolol Succinate 25 mg PO DAILY #30 11/09/17 02/15/18 Phenytoin Sodium Extended 400 mg PO QPM #30 11/09/17 02/15/18 Senna [Senokot] 17.2 mg PO DAILY PRN #30 11/09/17 02/15/18 Tamsulosin [Flomax] 0.4 mg PO DAILY #30 11/09/17 02/15/18 Topiramate 50 mg PO BID #30 11/09/17 02/15/18 lamoTRIgine [LaMICtal] 25 mg PO BID #30 11/09/17 02/15/18 lamoTRIgine [LaMICtal] 200 mg PO BID #30 11/09/17 02/15/18 Lorazepam [Ativan] 1 mg PO Q2H PRN #25 tablet 12/19/17 02/15/18 glipiZIDE ER [Glucotrol Xl] 2.5 mg PO DAILY 12/19/17 02/15/18 Levofloxacin [Levaquin] 750 mg PO DAILY 10 Days #10 tablet 12/21/17 02/15/18 Saccharomyces Boulardii [Florastor] 250 mg PO BID 20 Days #40 capsule 12/21/17 02/15/18 Loperamide [Imodium] 2 mg PO QID #14 capsule 01/09/18 02/15/18 Lisinopril 10 mg ORAL DAILY 02/15/18 02/15/18 Cephalexin [Keflex] 500 mg PO Q6H #28 capsule 02/23/18 Levofloxacin [Levaquin] 500 mg PO DAILY #10 tablet 04/09/18 HYDROcod/ACETAM 5/325 [[place] 5/325] 1 - 2 ea PO Q6H PRN #10 tablet 04/10/18 - Allergies Allergies/Adverse Reactions: Allergies Allergy/AdvReac Type Severity Reaction Status Date / Time No Known Drug Allergies Allergy Verified 01/09/18 21:04 - Social History Does the pt smoke?: No Smoking Status: Never smoker Does the pt drink ETOH?: Yes Does the pt have substance abuse?: No - Immunizations Immunizations are current?: Yes - POLST Patient has POLST: No POLST Status: Full Code PD ED PE NORMAL - Vitals Vital signs reviewed: Yes - General General: Alert and oriented X 3, No acute distress - Neck Neck: Supple, no meningeal sign, No bony TTP - Extremities Extremities: Other (Right shoulder is focally tender over the right and AC joint and he is unable to abduct more than a few inches but internal/external rotation is relatively painless. He has normal sensation and radial pulses.) - Neuro Neuro: Alert and oriented X 3, Normal speech Results - Vitals Vitals: Vital Signs - 24 hr 04/10/18 04/10/18 18:27 20:12 Temperature 36.5 C 36.3 C L Heart Rate 68 67 Respiratory 16 18 Rate Blood Pressure 124/76 138/78 H O2 Saturation 100 98 Oxygen O2 Source Room air - Labs Labs: Laboratory Tests 04/10/18 04/10/18 20:48 20:48 WBC 11.0 H RBC 4.16 L Hgb 12.0 L Hct 37.0 L MCV 89.0 MCH 28.9 MCHC 32.5 RDW 16.1 H Plt Count 350 MPV 7.2 L Neut # (Auto) 8.5 H Lymph # (Auto) 1.6 Bland # (Auto) 0.9 Eos # (Auto) 0.1 Baso # (Auto) 0.0 Absolute Nucleated RBC 0.01 Nucleated RBC % 0.1 Sodium 130 L Potassium 4.5 Chloride 97 L Carbon Dioxide 23 Anion Gap 10.0 BUN 23 H Creatinine 1.2 Estimated GFR (MDRD) 60 L Glucose 124 H Calcium 9.0 Total Bilirubin 0.4 AST 21 ALT 19 Alkaline Phosphatase 93 Total Protein 9.1 H Albumin 3.9 Globulin 5.2 H Albumin/Globulin Ratio 0.8 L Lipase 31 Phenytoin 34.1 - Rads (name of study) Right shoulder x-ray. Radiology: EMP read contemporaneously (Widening of the AC joint without fracture ) Procedures - General procedure General procedure: He was difficult for IV access and the nurse tried and failed. I personally placed a long 22-gauge IV in the right antecubital fossa using real-time ultrasound guidance that flushed and merry well. PD MEDICAL DECISION MAKING - ED course ED course: 72-year-old gentleman who FELL today and has an AC separation. It is a mechanical fall and likely an isolated injury. He was placed in a sling. The family arrived, the son specifically and he has been falling a lot lately which makes me concerned about potential Dilantin toxicity and he has hit his head as well. His Dilantin level is 35, this is not in therapeutic range, it is in the funez zone between therapeutic and toxic. That in combination with the fact that he had a UTI yesterday that is growing preliminarily staph, sensitivities not available yet and now has elevated white blood cell count is probably the cause of his decompensation and frequent falls. As such given the frequent falls and decompensation seems reasonable to put him in the hospital for IV antibiotics, specifically vancomycin pending the final speciation of the staph and sensitivities given especially that now that he has a white count which she did not yesterday and also IV fluids and a decrease in his Dilantin dose. Spoke with Dr Acevedo for obs at 950pm Departure - Departure Disposition: ED Place in Observation Clinical Impression: Staphylococcal infectious disease, Complicated UTI (urinary tract infection), Cognitive and neurobehavioral dysfunction following brain injury, Seizure disorder Acromioclavicular separation Qualifiers: Encounter type: initial encounter Laterality: right Qualified Code(s): S43.101A - Unspecified dislocation of right acromioclavicular joint, initial encounter Dilantin toxicity Qualifiers: Encounter type: initial encounter Injury intent: accidental or unintentional Qualified Code(s): T42.0X1A - Poisoning by hydantoin derivatives, accidental ( unintentional), initial encounter Type 2 diabetes mellitus with neurologic complication, with long-term current use of insulin Qualifiers: Diabetes mellitus complication detail: with other neurological complication Qualified Code(s): E11.49 - Type 2 diabetes mellitus with other diabetic neurological complication Head injury due to trauma Qualifiers: Encounter type: initial encounter Qualified Code(s): S09.90XA - Unspecified injury of head, initial encounter Condition: Stable Record reviewed to determine appropriate education?: Yes Instructions: ED Sprain AC Joint Follow-Up: [facility] [Provider Group] - Within 1 week Prescriptions: HYDROcod/ACETAM 5/325 [[place] 5/325] 1 - 2 ea PO Q6H PRN #10 tablet PRN Reason: Pain
--- NOTE | 2018-04-10 20:57 | CT Preliminary Report ---
Exam: CT HEAD W/O IMPRESSION: 1. No acute intracranial abnormality. 2. 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 3. Chronic right inferior cerebellar infarction. [facility] SITE ID: [id number]
[2018-04-10 20:58] LABS: BASOPHILS % (AUTO) 0.2 %; EOSINOPHILS # (AUTO) 0.1 10^3/uL (0.0-0.7); EOSINOPHILS % (AUTO) 0.9 %; LYMPHOCYTES # (AUTO) 1.6 10^3/uL (1.5-3.5); LYMPHOCYTES % (AUTO) 14.2 %; MEAN CORPUSCULAR HEMOGLOBIN 28.9 pg (27.0-31.0); MEAN CORPUSCULAR HGB CONC 32.5 g/dL (32.0-36.0); MEAN PLATELET VOLUME 7.2 fL (7.4-11.4); MONOCYTES # (AUTO) 0.9 10^3/uL (0.0-1.0); MONOCYTES % (AUTO) 7.9 %; NEUTROPHILS # (AUTO) 8.5 10^3/uL (1.5-6.6); NEUTROPHILS % (AUTO) 76.8 %; PLT - PLATELET COUNT 350 10^3/uL (130-450); RED BLOOD COUNT 4.16 10^6/uL (4.70-6.10); RED CELL DISTRIBUTION WIDTH 16.1 % (12.0-15.0)
[2018-04-10 21:05] LABS: ALBUMIN 3.9 g/dL (3.2-5.5); ALBUMIN/GLOBULIN RATIO 0.8 (1.0-2.2); BILIRUBIN,TOTAL 0.4 mg/dL (0.2-1.0); CREATININE 1.2 mg/dL (0.6-1.2); PHENYTOIN (DILANTIN) 34.1 ug/mL; TOTAL PROTEIN 9.1 g/dL (6.7-8.2)
[2018-04-10] MEDS ORDERED: VANCOMYCIN INJ 1.5 GM in SODIUM CHLORIDE 0.9% 500 ML IV STA (21:21)
[2018-04-10] MEDS ORDERED: SODIUM CHLORIDE 0.9% 1,000 ML IV ONE ×2 (21:21)
--- NOTE | 2018-04-10 21:45 | CT Report ---
EXAM: CT HEAD WITHOUT CONTRAST. EXAM DATE: 04/10/2018 08:46 PM. CLINICAL HISTORY: Altered, head injury. COMPARISON: 12/18/2017 CT head. TECHNIQUE: Multiaxial CT images were obtained from the foramen magnum to the vertex. Reformats: Coron al. IV contrast: None. In accordance with CT protocol optimization, one or more of the following dose reduction techniques w ere utilized for this exam: automated exposure control, adjustment of mA and/or KV based on patient s ize, or use of iterative reconstructive technique. FINDINGS: Parenchyma: Multiple areas of encephalomalacia involving the left frontal, temporal and to a lesser e xtent the parietal lobes as well as the inferior right cerebellum. There is no evidence of acute infa rction or hemorrhage. Extraaxial Spaces: Normal for age. No subdural or epidural collections identified. Ventricles: Mild ex-vacuo dilatation of the left lateral ventricle. No intraventricular hemorrhage or dilatation otherwise seen. Sinuses and Orbits: Imaged paranasal sinuses, orbits, and mastoids show no significant abnormality. Bones: Left cranial convexity craniotomy changes. No acute bony abnormality. Other: None. IMPRESSION: 1. No acute intracranial abnormality. 2. 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 3. Chronic right inferior cerebellar infarction. [facility] Referring Provider Line: [phone] SITE ID: [id number]
[2018-04-10] MEDS ORDERED: HYDROmorphone 0.5 MG/0.5 ML SYRINGE IVP PRN (22:39)
[2018-04-10] MEDS ORDERED: ACETAMINOPHEN 325 MG TABLET PO PRN (22:39)
[2018-04-10] MEDS ORDERED: ONDANSETRON 4 MG/2 ML VIAL IVP PRN (22:39)
[2018-04-10] MEDS ORDERED: SODIUM CHLORIDE FLUSH 0.9% 10 ML SYRINGE IVP PRN (22:39)
[2018-04-10] MEDS ORDERED: HYDROcod/ACETAM 5/325 MG TABLET PO PRN (22:39)
[2018-04-10] MEDS ORDERED: TEMAZEPAM 15 MG CAPSULE PO PRN (22:39)
[2018-04-10] MEDS ORDERED: SENNA 8.6 MG TABLET PO PRN (22:43)
[2018-04-10] MEDS ORDERED: VANCOMYCIN PER PHARMACY 100 GM in SODIUM CHLORIDE 0.9% 250 ML IV SCH (23:00)
[2018-04-11] MEDS: levETIRAcetam 250 MG TABLET PO SCH ×3 (00:21→20:26)
[2018-04-11] MEDS: LOPERAMIDE 2 MG CAPSULE PO SCH ×5 (00:23→20:26)
[2018-04-11] MEDS: NS W/20 MEQ KCL 1,000 ML IV SCH ×3 (00:28→22:53)
[2018-04-11] MEDS: SODIUM CHLORIDE FLUSH 0.9% 10 ML SYRINGE IVP SCH ×3 (01:02→16:58)
[2018-04-11 05:28] LABS: BASOPHILS % (AUTO) 0.3 %; EOSINOPHILS # (AUTO) 0.1 10^3/uL (0.0-0.7); EOSINOPHILS % (AUTO) 1.6 %; HGB - HEMOGLOBIN 12.1 g/dL (14.0-18.0); LYMPHOCYTES # (AUTO) 1.9 10^3/uL (1.5-3.5); LYMPHOCYTES % (AUTO) 22.8 %; MEAN CORPUSCULAR HEMOGLOBIN 30.1 pg (27.0-31.0); MEAN CORPUSCULAR HGB CONC 32.9 g/dL (32.0-36.0); MEAN CORPUSCULAR VOLUME 91.3 fL (80.0-94.0); MEAN PLATELET VOLUME 7.6 fL (7.4-11.4); MONOCYTES # (AUTO) 0.9 10^3/uL (0.0-1.0); MONOCYTES % (AUTO) 11.2 %; NEUTROPHILS # (AUTO) 5.3 10^3/uL (1.5-6.6); NEUTROPHILS % (AUTO) 64.1 %; PLT - PLATELET COUNT 313 10^3/uL (130-450); RED BLOOD COUNT 4.03 10^6/uL (4.70-6.10); RED CELL DISTRIBUTION WIDTH 16.6 % (12.0-15.0); WHITE BLOOD COUNT 8.3 x10^3/uL (4.8-10.8)
[2018-04-11 05:34] LABS: CALCIUM 8.8 mg/dL (8.5-10.3); CREATININE 1.1 mg/dL (0.6-1.2); PHENYTOIN (DILANTIN) 32.9 ug/mL
[2018-04-11] MEDS: VANCOMYCIN INJ 1.25 GM in SODIUM CHLORIDE 0.9% 500 ML IV SCH ×2 (08:43→20:33)
[2018-04-11] MEDS ORDERED: CALCIUM CARBONATE PO SCH (09:00)
[2018-04-11] MEDS ORDERED: VITAMIN D3 PO SCH (09:00)
[2018-04-11] MEDS ORDERED: LORazepam 0.5 MG TABLET PO PRN (09:06)
[2018-04-11] MEDS: FINASTERIDE 5 MG TABLET PO SCH (09:24)
[2018-04-11] MEDS: TAMSULOSIN 0.4 MG CAPSULE PO SCH (09:24)
[2018-04-11] MEDS: CHOLECALCIFEROL 400 UNIT TABLET PO SCH (09:25)
[2018-04-11] MEDS: METOPROLOL SUCCINATE 25 MG TABLET PO SCH (09:25)
[2018-04-11] MEDS: TOPIRAMATE 25 MG TABLET PO SCH ×2 (09:25→20:27)
[2018-04-11] MEDS: ASPIRIN EC 81 MG TABLET PO SCH (09:25)
[2018-04-11] MEDS: lamoTRIgine 25 MG TABLET PO SCH ×2 (09:25→20:26)
[2018-04-11] MEDS: SACCHAROMYCES BOULARDII 250 MG CAPSULE PO SCH ×2 (09:26→20:26)
[2018-04-11] MEDS: levoFLOXacin 250 MG TABLET PO SCH (09:26)
[2018-04-11] MEDS: CALCIUM CARBONATE CHEW 500 MG TABLET PO SCH (09:26)
[2018-04-11] MEDS: LISINOPRIL 5 MG TABLET PO SCH (09:27)
[2018-04-11] MEDS: lamoTRIgine 100 MG TABLET PO SCH ×2 (09:27→20:26)
[2018-04-11] MEDS: FAMOTIDINE 20 MG TABLET PO SCH (09:27)
[2018-04-11] MEDS: ENOXAPARIN 40 MG/0.4 ML SYRINGE SUBQ SCH (09:28)
[2018-04-11] MEDS: POLYETHYLENE GLYCOL 3350 17 GM PACKET PO SCH (09:31)
--- NOTE | 2018-04-11 09:54 | HISTORY & PHYSICAL EXAMINATION ---
DATE OF SERVICE: 04/10/2018 Physician: Belkis Koch MD HISTORY OF PRESENT ILLNESS: This is a 72-year-old white male with a history of cognitive and neurobehavioral dysfunction after brain surgery about 10 years ago, type 2 diabetes, seizure disorder, chronic indwelling Hooker from BPH and/or his chronic neurologic condition, history of frequent UTIs. The patient presented to the emergency room yesterday and was diagnosed with urinary tract infection, urine cultures were taken, he was sent home with Keflex. Today, while walking around his house, he fell on his right shoulder and came in for complaints of this with pain. He had imaging studies done that showed right acromioclavicular separation in that shoulder and also his urine culture from yesterday has grown Staph aureus and also he has an elevated white blood count and an elevated Dilantin level. He is being admitted for observation for management of all these above. PAST MEDICAL HISTORY: Diabetes, seizure disorder, chronic indwelling Hooker, cognitive and neurobehavioral dysfunction after brain surgery 10 years ago, frequent UTIs, status post a fall and falls in the past, new right shoulder pain after a fall today causing a right AC separation. REVIEW OF SYSTEMS: A comprehensive review of system was performed and the pertinent positives are above. ALLERGIES: NONE. MEDICATIONS AT HOME: 1. Dilantin 2. Tylenol. 3. Aspirin. 4. Calcium. 5. Finasteride. 6. Keppra. 7. Lovastatin. 8. Metformin. 9. Metoprolol. 10. Senna. 11. Flomax. 12. Topiramate. 13. Lamictal. 14. Ativan. 15. Glucotrol-XL. 16. Levaquin daily. 17. Florastor b.i.d. 18. Imodium scheduled. 19. Lisinopril 10 mg daily. 20. Keflex, new schedule since yesterday. 21. Tylenol with codeine p.r.n. SOCIAL HISTORY: The patient is a nonsmoker, who never smoked, drinks rare alcohol, has no history of illicit drug use. FAMILY HISTORY: No inherited diseases. PHYSICAL EXAMINATION: GENERAL: Elderly white male. He is in no distress, minimally communicative. VITAL SIGNS: Blood pressure 150/73, pulse of 80 in sinus rhythm, afebrile, room air saturation 96%. HEENT: Unremarkable. His oral mucosa is moist. NECK: Without JVD or carotid bruits. LUNGS: Clear. HEART: Sounds normal. No murmur. ABDOMEN: Soft, benign. EXTREMITIES: Without edema. NEUROLOGIC: He is obtunded and has decreased interactions. LABORATORY DATA: Sodium 138, yesterday it was 132, potassium 4.5, BUN 23, creatinine 1.2. Lactic acid 1.6. Normal liver tests. Normal lipase. White blood count 11, yesterday it was normal. Today there is a left shift.Hemoglobin 12, platelet count normal at 350. Dilantin level 34.1 today, yesterday was 35, therapeutic is between 10 and 20 and toxic is greater than 40. Head CT was done that shows encephalomalacia and an old stroke. Shoulder x-ray was done that shows right AC separation. IMPRESSION: 1. Right acromioclavicular separation. 2. Status post fall. 3. Urinary tract infection with Staphylococcus aureus growing. 4. Elevated Dilantin level. 5. Cognitive and neurobehavioral dysfunction after brain surgery. 6. Type 2 diabetes. 7. Seizure disorder. 8. Chronic indwelling Hooker. PLAN: Place the patient in observation, on telemetry to rule out arrhythmia, given the fall. Begin IV hydration. Obtain blood cultures. Begin IV vancomycin and await for sensitivities of the Staph aureus in the urine to adjust antibiotics. Hold his Glucophage, but continue with a diabetic diet and another oral medication for diabetes. Continue with his Lamictal, but stop his phenytoin and draw daily Dilantin levels. Follow his electrolytes and watch the sodium, BUN and creatinine, which show signs of mild volume depletion today, which are possibly from the UTI. CODE STATUS: FULL CODE, a POLST was filled out and signed by him in October 2017. DVT PROPHYLAXIS: Lovenox. ATTESTATION: The patient is expected to be discharged or transferred to another facility at 96 hours: Yes. TD: 04/11/2018 00:13 [email or web address]
[2018-04-11] MEDS ORDERED: ACETAMINOPHEN 325 MG TABLET PO PRN (13:16)
--- NOTE | 2018-04-11 13:22 | DISCHARGE SUMMARY ---
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 Status post fall (Z91.81) -chronic, stable. UTI (urinary tract infection) (N39.0) -acute, treatment to continue. Elevated Dilantin level (R78.89) -resolved. 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 Diabetes mellitus type 2, controlled (E11.9) -chronic, controlled, stable. Seizure disorder (G40.909)- chronic, no seizures noted. - HPI History of Present Illness: Mehdi Salas is well known to this hospital and is a 72-year old white male with a past medical history of cognitive and neurobehavioral dysfunctiona after brain surgery ~10 years ago, diabetes mellitus type 2, seizure disorder, chronic indwelling crenshaw from BPH, recurrent UTIs, and recent bipolar TURP. He presented to the ED yesterday and was diagnosed with a UTI, a urine culture was obtained and sent home on Keflex. He returned to the ED after he sustained a fall and landed on his right shoulder that has been painful ever since. He denies loss of consciousness during this episode. He had imaging that showed a right acromioclavicular separation in the shoulder and preliminary results from the previous day's urine culture shows staph aureus is growing. He was also found to have an elevated WBC count and a supra-therapeutic serum dilantin level. Orthopedic surgery was consulted, who will see him in the AM, and he will be placed on observation to manage his dilantin dosing, including a physical therapy consult. - HOSPITAL COURSE Hospital Course: The following diagnoses were prevalent during this hospital stay: Fall with injury/Separation of right acromioclavicular joint Dr. Salomon was consulted via phone, and he stopped by the patient's room and wrote a full consult note. In summary; The patient suffered a grade II separation of the right AC joint. Recommendation is for utilization of a sling for comfort, with progression as tolerated of normal use of the shoulder. He can resume normal activity including lifting and using his arms for mobility or positioning. There is no need for additional pain medications and he can use Tylenol, a sling, and ICE or heat for added comfort. Dr. Salomon recommends a follow up in about 3 weeks either with PCP or orthopedic surgery to ensure that he has regained full use of his right shoulder. UTI The patient has just undergone a bipolar TURP and has since had a resolution of urinary retention, but now has ongoing urinary incontinence. The patient was in the ED just 24 hours prior to this admission and sent home with Keflex. A urine culture obtained just prior to admission on 04/09/18 grew out stphylococcus aureus and enterococcus faecalis. Sensitivities show using Linezolid (zyvox) will cover both pathogens, so this prescriptions was sent to [facility]. I made a call to [facility] to clarify which antibiotic was to be used since I had sent Levofloxicin 24 hours earlier. This infection is considered stable, localized and treatment is to continue. Seizure disorder/elevated dilantin level The patient is prescribed Dilantin, Keppra, Topiramate, Lamictal, and Lorazepam PRN for active seizure activity. Upon admission, a phenytoin level was just above normal at 34.1 and upon re-check was noted to be 27.0. Pharmacy was contacted and their recommendation was to hold Dilantin, which was on HOLD for just over 24 hours, then resumed the next morning at his usual dose. There was no evidence of seizures during the hospital stay and the patient was in stable condition. This is considered to be resolved upon discharge. Diabetes mellitus type 2, controlled The patient was placed on a carb-controlled diet. His Metformin and Glucotrol- XL was placed on hold as per hospital protocol and he was given a low dose Lantus, SSI and blood sugar monitoring. A hemoglobin A1C was check and it is 5.8, making a usual blood glucose about 120. An early AM sugar was 108. This is a chronic, well controlled condition without any need for adjustments. Cognitive and neuro-behavioral dysfunction following brain injury This condition makes 24 care necessary. The patient's son states that his father has been falling more frequently due to he and his working out side the home and the patient being left alone for most days. He also expresses frustration as his father constantly urinates in his briefs since he has had his bipolar TURP, that has caused a resolution of his urinary retention and claims that since his father has injured his should he can no longer participate in this. A chart review was completed for physical therapy recommendations that was relayed to the patient's son to defend this claim. Rehabilitation notes; "patient to have good swing through with balance and ability to use front wheeled walker. Patient to bear weight with right shoulder /arm without pain. Passive and active range of motion range less than 10% with fair- push off and weight bearing tolerance so patient can grasp and control walker. Used Kinesio tape to stabilize right AC joint, and un-weight shoulder". Final recommendation; out patient PT/OT may be beneficial. On previous admissions, the patient's POA, daughter Kelsey was in charge [place]. As per chart review social work describes the conclusion of this situation as; "Kelsey (POA) stated that the patient has caregivers that are hired to help at home and that family is aware of resources ". The patient was held one extra day due to the sonRj refusing to take his father home for reasons such as, "It is my birthday today and we have dinner plans, my is overwhelmed lately since we have a new baby who is 8 months old and a 2 year old child". The patient was discharged 24 hours later, making his second day of stay a medically avoidable day. In the future, there are facilities in the [place] that can provide respite care. 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 Disposition: New prescriptions were sent to pharmacy at [facility] based on final sensitivities. The patient was ambulatory and was transported to his son' s private car via wheel chair to return home. He did not require oxygen and all medications were resumed. - ALLERGIES Allergies/Adverse Reactions: Allergies Allergy/AdvReac Type Severity Reaction Status Date / Time No Known Drug Allergies Allergy Verified 01/09/18 21:04 - MEDICATIONS Home Medications: Ambulatory Orders Medication Instructions Recorded Confirmed Phenytoin Sodium Extended 300 mg PO DAILY 05/18/13 04/11/18 [Dilantin] Acetaminophen 325 mg PO Q4H PRN #30 11/09/17 04/11/18 Aspirin [Aspirin EC] 81 mg PO DAILY #30 11/09/17 04/11/18 Calcium Carbonate/Vitamin D3 1 tab PO DAILY #30 11/09/17 04/11/18 [Calcium 500-Vit D3 200 Tablet] Finasteride 5 mg PO DAILY #30 11/09/17 04/11/18 Levetiracetam [Keppra] 1,000 mg PO BID #60 11/09/17 04/11/18 Lovastatin 40 mg PO QPM #30 11/09/17 04/11/18 Metformin HCl [Fortamet] 1,000 mg PO BIDWM #30 11/09/17 04/11/18 Metoprolol Succinate 25 mg PO DAILY #30 11/09/17 04/11/18 Phenytoin Sodium Extended 400 mg PO QPM #30 11/09/17 04/11/18 Senna [Senokot] 17.2 mg PO DAILY PRN #30 11/09/17 04/11/18 Tamsulosin [Flomax] 0.4 mg PO DAILY #30 11/09/17 04/11/18 Topiramate 50 mg PO BID #30 11/09/17 04/11/18 lamoTRIgine [LaMICtal] 25 mg PO BID #30 11/09/17 04/11/18 lamoTRIgine [LaMICtal] 200 mg PO BID #30 11/09/17 04/11/18 Lorazepam [Ativan] 1 mg PO Q2H PRN #25 tablet 12/19/17 04/11/18 glipiZIDE ER [Glucotrol Xl] 2.5 mg PO DAILY 12/19/17 04/11/18 Lisinopril 10 mg ORAL DAILY 02/15/18 04/11/18 L. Acidophilus/L.bulgaricus 1 each PO BID #28 tablet 04/11/18 [Lactobacillus Tablet] Linezolid 600 mg PO BID 10 Days #20 tablet 04/12/18 - PHYSICAL EXAM AT DISCHARGE General Appearance: positive: No acute distress, Alert Eyes Bilateral: positive: Normal inspection, PERRL ENT: positive: ENT inspection nml, Pharynx nml, No signs of dehydration Neck: positive: Nml inspection, Thyroid nml, No JVD, Trachea midline Respiratory: positive: Chest non-tender, No respiratory distress, Breath sounds nml Cardiovascular: positive: Regular rate & rhythm, Systolic murmur, Decreased pulse(s) Peripheral Pulses: positive: 2+ Abdomen: positive: Non-tender, Nml bowel sounds Back: positive: Nml inspection Skin: positive: No rash, Warm, Dry Extremities: positive: Non-tender (Tenderness noted in right shoulder upon palpation and with movement.), Full ROM (The patient demonstrates ROM with right shoulder, although this is painful upon exam. No bruising noted.), Nml appearance, Pedal edema (chronic), Joint swelling Neurologic/Psychiatric: positive: Motor nml, Weakness, Sensory loss, Slurred/ abnml speech (chronic), Depressed mood/affect, Other (baseline cognitive delay due to previous craniotomy) Reflexes: Bicep (R): 2+, Bicep (L): 2+ - LABS Result Diagrams: 04/12/18 08:23 04/12/18 08:23 - DIAGNOSTIC IMAGING Diagnostic Imaging Results: Final report reviewed Diagnostic Imaging Results Comments: EXAM: CHEST RADIOGRAPHY EXAM DATE: 04/09/2018 11:48 AM. CLINICAL HISTORY: Seizure. COMPARISON: Chest x-ray 11/06/2017. TECHNIQUE: 2 views. FINDINGS: Lungs/Pleura: Elongated lingular and right middle lobe opacities. No convincing focal consolidation. No pneumothorax or pleural effusion. Mediastinum: Heart and mediastinal contours are unremarkable. Other: None. IMPRESSION: 1. Elongated lingular and right middle lobe opacities are probably from atelectasis or scarring. 2. No convincing consolidation. EXAM: RIGHT SHOULDER RADIOGRAPHY EXAM DATE: 04/10/2018 07:08 PM. CLINICAL HISTORY: Right shoulder injury. COMPARISON: None. TECHNIQUE: 3 views. FINDINGS: Bones: No cortical step-off or acute fracture. Joints: There is widening of the acromioclavicular joint. Glenohumeral joint space appears preserved. Soft tissues: The visualized hemithorax is unremarkable. No soft tissue swelling. IMPRESSION: 1. Widening of acromioclavicular joint, question ligamentous injury. 2. No fracture or shoulder dislocation. EXAM: CT HEAD WITHOUT CONTRAST. EXAM DATE: 04/10/2018 08:46 PM. CLINICAL HISTORY: Altered, head injury. COMPARISON: 12/18/2017 CT head. TECHNIQUE: Multiaxial CT images were obtained from the foramen magnum to the vertex. Reformats: Coronal. IV contrast: None. In accordance with CT protocol optimization, one or more of the following dose reduction techniques were utilized for this exam: automated exposure control, adjustment of mA and/or KV based on patient size, or use of iterative reconstructive technique. FINDINGS: Parenchyma: Multiple areas of encephalomalacia involving the left frontal, temporal and to a lesser extent the parietal lobes as well as the inferior right cerebellum. There is no evidence of acute infarction or hemorrhage. Extraaxial Spaces: Normal for age. No subdural or epidural collections identified. Ventricles: Mild ex-vacuo dilatation of the left lateral ventricle. No intraventricular hemorrhage or dilatation otherwise seen. Sinuses and Orbits: Imaged paranasal sinuses, orbits, and mastoids show no significant abnormality. Bones: Left cranial convexity craniotomy changes. No acute bony abnormality. Other: None. IMPRESSION: 1. No acute intracranial abnormality. 2. 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 3. Chronic right inferior cerebellar infarction. - FOLLOW UP Follow Up: Disposition: 01 Home, Self Care Condition: Good Prescriptions: L. Acidophilus/L.bulgaricus [Lactobacillus Tablet] 1 each PO BID #28 tablet Linezolid 600 mg PO BID 10 Days #20 tablet Diet: Diabetic Activity Restrictions: Activity as Tolerated Shower Restrictions: No Driving Restrictions: Yes Weight Bearing: Full Weight Instruction Topics: ED Sprain AC Joint Additional Instructions or Follow Up instructions: You were admitted after a fall and a right shoulder injury. Imaging shows a slight separation, but no fractures. Orthopedic surgery was called, and Dr. Salomon states that he would see you, but there is no treatment for this. You will find ICE application to be the most helpful. You can use the sling for comfort, but continue to use your arm so that it does not stiffen up. You also have a UTI and are being treated for that with Levofloxacin and a preventative probiotic. Your Dilantin was held just for today and you are to resume as usual at home. You were not considered to have toxic levels, just mildly elevated. Please see your PCP within on week and continue all medications as usual. - TIME SPENT Time Spent in Discharge (Minutes): 60
--- NOTE | 2018-04-11 17:10 | CONSULTATION NOTE ---
DATE OF SERVICE: Physician: Bridgette Salomon MD REASON FOR CONSULTATION: Right shoulder injury. HISTORY OF PRESENT ILLNESS: Mr. Salas is a 72-year-old male, who is neurologically impaired and disabled and a poor ambulator with balance problems, requiring use of a walker for minimal ambulation, who suffered a ground level fall at his home outside on 04/10/2018, leading him to be seen and evaluated in the emergency room in the evening, where he was found to have also abnormal Dilantin levels and in a medical condition that was not deemed to be stable with a diagnosed AC separation of the right shoulder, as well, and possible head trauma. For this reason, the patient was admitted to the hospital and I was asked to see the patient about his new onset right shoulder pain, secondary to the fall on his shoulder. HOSPITAL COURSE/PHYSICAL EXAMINATION: The patient's prior medical history is obtained mainly from the medical record because the patient is neurologically impaired and a poor historian. His examination reveals him to be in no obvious distress, sitting in a chair with a sling on his right arm, trying to respond to questioning, but not appropriately so. He does not appear to be in pain. His right shoulder AC joint area shows slight enlargement without bruising or discoloration, but distinct localizing tenderness at the AC joint. The patient has minimal pain with movement of his arm in internal or external rotation, but he is somewhat inhibited, in wanting to forward elevate because of pain. His arm and forearm do not have edema. Neurovascular exam is normal. The patient does not show abnormalities with other extremities, including left upper extremity and both lower extremities. X-RAYS: The x-rays of the shoulder performed on 04/10/2018 reveal very slight widening of the AC joint on the right consistent with a grade 2 separation. IMPRESSION: Closed right grade 2 separation of the AC joint. Recommendation is for utilization of a sling for comfort, with progression as tolerated to normal use of the shoulder, including weightbearing and lifting as tolerated. The patient will use Tylenol or other [id number] medications for pain control, and he prefers to use heat on the shoulder as needed. He is asked to followup in his primary care office or in the orthopedic office within 3 weeks to ensure that he has regained functional use of his shoulder, and he understands that this is not an operatively-treated injury and outcomes are good with or without any intervention or use of a sling. TD: 04/11/2018 13:25
--- NOTE | 2018-04-11 18:14 | PROVIDER PROGRESS NOTE ---
Hospitalist Cross-cover Note - Cross-Cover Note Cross-Cover Note: Plans for the patient to go home were cancelled when his son, explained that " he could no longer take care of his father as before". 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 He states that his father has been having increasing falls and portrays frustration since "this time he was injured". The patient's son's feelings were acknowledged by me. Since there is not a safe discharge plan, the patient will be changed to inpatient. His medical abnormalities have now normalized, including orthopedic evaluation for right shoulder injury, and his elevated dilatin blood serum levels.
[2018-04-11] MEDS ORDERED: ATORVASTATIN 10 MG TABLET PO SCH ×2 (21:00)
[2018-04-12] MEDS: SODIUM CHLORIDE FLUSH 0.9% 10 ML SYRINGE IVP SCH (00:05)
[2018-04-12] MEDS: NS W/20 MEQ KCL 1,000 ML IV SCH (05:52)
[2018-04-12 08:27] LABS: BASOPHILS % (AUTO) 0.4 %; EOSINOPHILS # (AUTO) 0.2 10^3/uL (0.0-0.7); EOSINOPHILS % (AUTO) 2.9 %; HGB - HEMOGLOBIN 12.2 g/dL (14.0-18.0); LYMPHOCYTES # (AUTO) 1.9 10^3/uL (1.5-3.5); LYMPHOCYTES % (AUTO) 30.7 %; MEAN CORPUSCULAR HEMOGLOBIN 29.9 pg (27.0-31.0); MEAN CORPUSCULAR HGB CONC 32.5 g/dL (32.0-36.0); MEAN CORPUSCULAR VOLUME 91.8 fL (80.0-94.0); MEAN PLATELET VOLUME 7.3 fL (7.4-11.4); MONOCYTES # (AUTO) 0.7 10^3/uL (0.0-1.0); MONOCYTES % (AUTO) 11.9 %; NEUTROPHILS # (AUTO) 3.3 10^3/uL (1.5-6.6); NEUTROPHILS % (AUTO) 54.1 %; PLT - PLATELET COUNT 308 10^3/uL (130-450); RED BLOOD COUNT 4.07 10^6/uL (4.70-6.10); RED CELL DISTRIBUTION WIDTH 16.1 % (12.0-15.0)
[2018-04-12 08:40] LABS: ALBUMIN 3.5 g/dL (3.2-5.5); ALBUMIN/GLOBULIN RATIO 0.7 (1.0-2.2); BILIRUBIN,TOTAL 0.6 mg/dL (0.2-1.0); CALCIUM 8.9 mg/dL (8.5-10.3); CREATININE 1.2 mg/dL (0.6-1.2); TOTAL PROTEIN 8.3 g/dL (6.7-8.2)
[2018-04-12] MEDS: FINASTERIDE 5 MG TABLET PO SCH (08:59)
[2018-04-12] MEDS: TOPIRAMATE 25 MG TABLET PO SCH (08:59)
[2018-04-12] MEDS: lamoTRIgine 100 MG TABLET PO SCH (08:59)
[2018-04-12] MEDS: levoFLOXacin 250 MG TABLET PO SCH (08:59)
[2018-04-12] MEDS: lamoTRIgine 25 MG TABLET PO SCH (08:59)
[2018-04-12] MEDS: METOPROLOL SUCCINATE 25 MG TABLET PO SCH (08:59)
[2018-04-12] MEDS: levETIRAcetam 250 MG TABLET PO SCH (08:59)
[2018-04-12] MEDS: LISINOPRIL 5 MG TABLET PO SCH (08:59)
[2018-04-12] MEDS: CHOLECALCIFEROL 400 UNIT TABLET PO SCH (08:59)
[2018-04-12] MEDS ORDERED: SENNA 8.6 MG TABLET PO SCH (09:00)
[2018-04-12] MEDS: POLYETHYLENE GLYCOL 3350 17 GM PACKET PO SCH (09:00)
[2018-04-12] MEDS: FAMOTIDINE 20 MG TABLET PO SCH (09:00)
[2018-04-12] MEDS: ENOXAPARIN 40 MG/0.4 ML SYRINGE SUBQ SCH (09:00)
[2018-04-12] MEDS: CALCIUM CARBONATE CHEW 500 MG TABLET PO SCH (09:00)
[2018-04-12] MEDS: SACCHAROMYCES BOULARDII 250 MG CAPSULE PO SCH (09:00)
[2018-04-12] MEDS: TAMSULOSIN 0.4 MG CAPSULE PO SCH (09:00)
[2018-04-12] MEDS: LOPERAMIDE 2 MG CAPSULE PO SCH ×2 (09:01→11:26)
[2018-04-12] MEDS: ASPIRIN EC 81 MG TABLET PO SCH (09:03)
[2018-04-12 09:05] LABS: HB2 TOTAL 13.9 g/dL; HEMOGLOBIN A1C 0.55 g/dL; HEMOGLOBIN A1C % 5.8 % (4.6-6.2)
[2018-04-12] MEDS ORDERED: PHENYTOIN ER 100 MG CAPSULE PO SCH ×2 (11:00→21:00)
[2018-04-12] MEDS ORDERED: INSULIN ASPART 300 UNIT/3 ML PEN SUBQ SCH (12:00)
--- NOTE | 2018-04-12 13:59 | PROVIDER PROGRESS NOTE ---
Subjective - Prog Note Date Prog Note Date: 04/12/18 Prog Note Time: 13:56 - Subjective Pt reports feeling: No change Current Medications - Current Medications Current Medications: Active Medications Acetaminophen (Tylenol) 650 mg PO Q4HR PRN PRN Reason: Pain or Fever > 38C (100.4F) Last Admin: 04/11/18 16:51 Dose: 650 mg Acetaminophen (Tylenol) 325 mg PO Q4H PRN PRN Reason: PAIN/FEVER Hydrocodone Bitart/Acetaminophen ([place] 5/325) 1 tab PO Q4HR PRN PRN Reason: Pain 5 to 7 Aspirin (Ecotrin) 81 mg PO DAILY [facility] Last Admin: 04/12/18 09:03 Dose: 81 mg Atorvastatin Calcium (Lipitor) 10 mg PO QPM [facility] Last Admin: 04/11/18 20:26 Dose: 10 mg Calcium Carbonate/Glycine (Tums) 500 mg PO DAILY [facility] Last Admin: 04/12/18 09:00 Dose: 500 mg Cholecalciferol (Vitamin D3) 200 unit PO DAILY [facility] Last Admin: 04/12/18 08:59 Dose: 200 unit Enoxaparin Sodium (Lovenox) 40 mg SUBQ DAILY [facility] Last Admin: 04/12/18 09:00 Dose: 40 mg Famotidine (Pepcid) 20 mg PO DAILY [facility] Last Admin: 04/12/18 09:00 Dose: 20 mg Finasteride (Proscar) 5 mg PO DAILY [facility] Last Admin: 04/12/18 08:59 Dose: 5 mg Insulin Aspart (Novolog) 1 - 5 unit SUBQ 0800,1200,1700,2100 [facility] PRN Reason: Protocol Last Admin: 04/12/18 12:29 Dose: 1 unit Insulin Glargine (Lantus Solostar) 10 unit SUBQ QPM [facility] Lamotrigine (Lamictal) 25 mg PO BID [facility] Last Admin: 04/12/18 08:59 Dose: 25 mg Lamotrigine (Lamictal) 200 mg PO BID [facility] Last Admin: 04/12/18 08:59 Dose: 200 mg Levetiracetam (Keppra) 1,000 mg PO BID [facility] Last Admin: 04/12/18 08:59 Dose: 1,000 mg Levofloxacin (Levaquin) 500 mg PO DAILY [facility] Last Admin: 04/12/18 08:59 Dose: 500 mg Lisinopril (Zestril) 10 mg PO DAILY [facility] Last Admin: 04/12/18 08:59 Dose: 10 mg Loperamide HCl (Imodium) 2 mg PO QID [facility] Last Admin: 04/12/18 11:26 Dose: Not Given Lorazepam (Ativan) 1 mg PO Q2H PRN PRN Reason: NEUROMUSCULAR BLOCKADE Metoprolol Succinate (Toprol Xl) 25 mg PO DAILY [facility] Last Admin: 04/12/18 08:59 Dose: 25 mg Phenytoin Sodium (Dilantin) 300 mg PO DAILY [facility] Last Admin: 04/12/18 12:29 Dose: 300 mg Phenytoin Sodium (Dilantin) 400 mg PO QPM [facility] Polyethylene Glycol (Miralax) 17 gm PO DAILY [facility] Last Admin: 04/12/18 09:00 Dose: 17 gm Saccharomyces Boulardii (Florastor) 250 mg PO BID [facility] Last Admin: 04/12/18 09:00 Dose: 250 mg Senna (Senokot) 17.2 mg PO DAILY [facility] Last Admin: 04/12/18 09:00 Dose: 17.2 mg Tamsulosin HCl (Flomax) 0.4 mg PO DAILY [facility] Last Admin: 04/12/18 09:00 Dose: 0.4 mg Temazepam (Restoril) 15 mg PO QPM PRN PRN Reason: Insomnia Topiramate (Topamax) 50 mg PO BID [facility] Last Admin: 04/12/18 08:59 Dose: 50 mg Phenytoin Sodium Extended [Dilantin] 300 mg PO DAILY 05/18/13 glipiZIDE ER [Glucotrol Xl] 2.5 mg PO DAILY 12/19/17 Lisinopril 10 mg ORAL DAILY 02/15/18 Objective - Vital Signs/Intake & Output Vital Signs: Vital Signs x48h Temp Pulse Pulse Resp Resp BP BP 04/12/18 09:29 73 12 112/61 04/12/18 07:54 36.7 C 66 16 112/61 Pulse Ox Pulse Ox 04/12/18 09:29 98 04/12/18 07:54 97 Intake & Output: Intake & Output 04/09/18 04/10/18 04/11/18 04/12/18 23:59 23:59 23:59 23:59 Intake Total 470.971 3994.334 Output Total 225 200 Balance 487.383 9362.334 - Lab Results Fish Bones: 04/12/18 08:23 04/12/18 08:23 Other Labs: Lab Results x24hrs 04/12/18 04/12/18 04/12/18 Range/Units 08:23 08:23 08:23 WBC (4.8-10.8) x10^3/uL RBC (4.70-6.10) 10^6/uL Hgb (14.0-18.0) g/dL Hct (42.0-52.0) % MCV (80.0-94.0) fL MCH (27.0-31.0) pg MCHC (32.0-36.0) g/dL RDW (12.0-15.0) % Plt Count (130-450) 10^3/uL MPV (7.4-11.4) fL Neut # (Auto) (1.5-6.6) 10^3/uL Lymph # (Auto) (1.5-3.5) 10^3/uL Coos # (Auto) (0.0-1.0) 10^3/uL Eos # (Auto) (0.0-0.7) 10^3/uL Baso # (Auto) (0.0-0.1) 10^3/uL Absolute Nucleated RBC x10^3/uL Nucleated RBC % /100WBC Sodium 135 (135-145) mmol/L Potassium 4.3 (3.5-5.0) mmol/L Chloride 106 (101-111) mmol/L Carbon Dioxide 21 (21-32) mmol/L Anion Gap 8.0 (6-13) BUN 19 (6-20) mg/dL Creatinine 1.2 (0.6-1.2) mg/dL Estimated GFR (MDRD) 60 L (>89) Glucose 107 H (70-100) mg/dL Glycated Hemoglobin 5.8 (4.6-6.2) % Estim Average Glucose 120 H (70-100) Calcium 8.9 (8.5-10.3) mg/dL Total Bilirubin 0.6 (0.2-1.0) mg/dL AST 15 (10-42) IU/L ALT 15 (10-60) IU/L Alkaline Phosphatase 81 (42-121) IU/L B-Natriuretic Peptide 40 (5-100) pg/mL Total Protein 8.3 H (6.7-8.2) g/dL Albumin 3.5 (3.2-5.5) g/dL Globulin 4.8 H (2.1-4.2) g/dL Albumin/Globulin Ratio 0.7 L (1.0-2.2) Phenytoin 27.0 ug/mL 04/12/18 Range/Units 08:23 WBC 6.0 (4.8-10.8) x10^3/uL RBC 4.07 L (4.70-6.10) 10^6/uL Hgb 12.2 L (14.0-18.0) g/dL Hct 37.4 L (42.0-52.0) % MCV 91.8 (80.0-94.0) fL MCH 29.9 (27.0-31.0) pg MCHC 32.5 (32.0-36.0) g/dL RDW 16.1 H (12.0-15.0) % Plt Count 308 (130-450) 10^3/uL MPV 7.3 L (7.4-11.4) fL Neut # (Auto) 3.3 (1.5-6.6) 10^3/uL Lymph # (Auto) 1.9 (1.5-3.5) 10^3/uL [place] # (Auto) 0.7 (0.0-1.0) 10^3/uL Eos # (Auto) 0.2 (0.0-0.7) 10^3/uL Baso # (Auto) 0.0 (0.0-0.1) 10^3/uL Absolute Nucleated RBC 0.00 x10^3/uL Nucleated RBC % 0.0 /100WBC Sodium (135-145) mmol/L Potassium (3.5-5.0) mmol/L Chloride (101-111) mmol/L Carbon Dioxide (21-32) mmol/L Anion Gap (6-13) BUN (6-20) mg/dL Creatinine (0.6-1.2) mg/dL Estimated GFR (MDRD) (>89) Glucose (70-100) mg/dL Glycated Hemoglobin (4.6-6.2) % Estim Average Glucose (70-100) Calcium (8.5-10.3) mg/dL Total Bilirubin (0.2-1.0) mg/dL AST (10-42) IU/L ALT (10-60) IU/L Alkaline Phosphatase (42-121) IU/L B-Natriuretic Peptide (5-100) pg/mL Total Protein (6.7-8.2) g/dL Albumin (3.2-5.5) g/dL Globulin (2.1-4.2) g/dL Albumin/Globulin Ratio (1.0-2.2) Phenytoin ug/mL
[2018-04-12] MEDS ORDERED: LINEZOLID 600 MG TABLET PO SCH (14:00)
[2018-04-12 16:25] VITALS: BP 104/66
[2018-04-12] MEDS ORDERED: INSULIN GLARGINE 300 UNIT/3 ML PEN SUBQ SCH (21:00)
== END 2018-04-12 16:42 | disposition home or self-care (01) | DRG 563 ==
LOC: EDUNIT# → ED 18:22 → MS2 22:21 → OBSVTOIN 04-11 18:29
PROVIDERS: ADMIT Internal Medicine; ATTEND Nurse Practitioner
DX: S43.101A Unspecified dislocation of right acromioclavicular joint, initial encounter (principal); N39.0 Urinary tract infection, site not specified; S09.90XA Unspecified injury of head, initial encounter; G97.82 Other postprocedural complications and disorders of nervous system; B95.8 Unspecified staphylococcus as the cause of diseases classified elsewhere; E11.40 Type 2 diabetes mellitus with diabetic neuropathy, unspecified; I10 Essential (primary) hypertension; E78.00 Pure hypercholesterolemia, unspecified; N40.0 Benign prostatic hyperplasia without lower urinary tract symptoms; G40.909 Epilepsy, unspecified, not intractable, without status epilepticus; E11.9 Type 2 diabetes mellitus without complications; G31.84 Mild cognitive impairment of uncertain or unknown etiology; F91.9 Conduct disorder, unspecified; R89.2 Abnormal level of other drugs, medicaments and biological substances in specimens from other organs, systems and tissues; R26.2 Difficulty in walking, not elsewhere classified; N40.1 Benign prostatic hyperplasia with lower urinary tract symptoms; N39.498 Other specified urinary incontinence; Y83.9 Surgical procedure, unspecified as the cause of abnormal reaction of the patient, or of later complication, without mention of misadventure at the time of the procedure; W19.XXXA Unspecified fall, initial encounter; Y92.019 Unspecified place in single-family (private) house as the place of occurrence of the external cause; Z79.82 Long term (current) use of aspirin; Z79.84 Long term (current) use of oral hypoglycemic drugs; Z79.2 Long term (current) use of antibiotics; Z79.899 Other long term (current) drug therapy; Z91.81 History of falling; I25.2 Old myocardial infarction; Z90.79 Acquired absence of other genital organ(s); Z87.440 Personal history of urinary (tract) infections
CPT/HCPCS: 36415; 70450; 80048; 80053; 80185; 80202; 83036; 83605; 83690; 83880; 85025; 87040; 96361; 96365; 96366; 96372; 99283; 99284

== ENCOUNTER 2018-04-18 07:40 | Outpatient (CLI) | payer MEDICARE, OTHER ==
[2018-04-18 12:10] LABS: BASOPHILS % (AUTO) 0.5 %; EOSINOPHILS # (AUTO) 0.3 10^3/uL (0.0-0.7); EOSINOPHILS % (AUTO) 4.2 %; HGB - HEMOGLOBIN 12.5 g/dL (14.0-18.0); LYMPHOCYTES # (AUTO) 1.3 10^3/uL (1.5-3.5); LYMPHOCYTES % (AUTO) 18.3 %; MEAN CORPUSCULAR HGB CONC 32.4 g/dL (32.0-36.0); MEAN CORPUSCULAR VOLUME 92.7 fL (80.0-94.0); MEAN PLATELET VOLUME 8.5 fL (7.4-11.4); MONOCYTES # (AUTO) 0.6 10^3/uL (0.0-1.0); NEUTROPHILS # (AUTO) 4.9 10^3/uL (1.5-6.6); PLT - PLATELET COUNT 309 10^3/uL (130-450); RED BLOOD COUNT 4.16 10^6/uL (4.70-6.10); RED CELL DISTRIBUTION WIDTH 17.1 % (12.0-15.0); WHITE BLOOD COUNT 7.2 x10^3/uL (4.8-10.8)
[2018-04-18 12:31] LABS: ALBUMIN 3.8 g/dL (3.2-5.5); ALBUMIN/GLOBULIN RATIO 0.7 (1.0-2.2); ALKALINE PHOSPHATASE 86 IU/L (42-121); ALT ALANINE AMINOTRANSFERASE 17 IU/L (10-60); AST ASPARTATE AMINOTRANSFERASE 18 IU/L (10-42); BILIRUBIN,TOTAL 0.4 mg/dL (0.2-1.0); BUN - BLOOD UREA NITROGEN 30 mg/dL (6-20); CALCIUM 9.4 mg/dL (8.5-10.3); CARBON DIOXIDE - CO2 24 mmol/L (21-32); CHLORIDE 102 mmol/L (101-111); CHOL/HDL RATIO 2.9 (<5.0); CHOLESTEROL 125 mg/dL; CREATININE 1.2 mg/dL (0.6-1.2); GFR - MDRD 60 (>89); GLUCOSE 94 mg/dL (70-100); HDL CHOLESTEROL 43 mg/dL; LDL CHOLESTEROL,CALCULATED 63 mg/dL; LDL/HDL RATIO 1.5 (<3.6); SODIUM 135 mmol/L (135-145); VLDL CHOLESTEROL 19 mg/dL
[2018-04-18 12:49] LABS: HB2 TOTAL 13.5 g/dL; HEMOGLOBIN A1C 0.57 g/dL
[2018-04-19 13:41] LABS: HEPATITIS C ANTIBODY NON-REACTIVE (NON-REACTIVE)
== END 2018-04-18 07:41 | disposition home or self-care (01) ==
LOC: LAB.WCP 07:40
PROVIDERS: ATTEND Physician Assistant Medical
DX: E78.5 Hyperlipidemia, unspecified (principal); E11.9 Type 2 diabetes mellitus without complications; N40.1 Benign prostatic hyperplasia with lower urinary tract symptoms; I10 Essential (primary) hypertension; Z11.59 Encounter for screening for other viral diseases; R56.9 Unspecified convulsions
CPT/HCPCS: 36415; 80053; 80061; 80185; 83036; 85025; 86803; G0103; 83721; 84153

== ENCOUNTER 2018-05-14 15:42 | Outpatient (CLI) | payer MEDICARE, OTHER | END 2018-05-14 15:43 | disposition home or self-care (01) | LOC: LAB.WCP 15:42 | PROVIDERS: ATTEND Family Medicine | DX: G40.909 Epilepsy, unspecified, not intractable, without status epilepticus (principal) | CPT/HCPCS: 36415; 80185 ==

== ENCOUNTER 2018-09-03 20:02 | Outpatient (CLI) | payer MEDICARE, OTHER | END 2018-09-03 20:03 | disposition critical access hospital (66) | LOC: EMS 20:02 | PROVIDERS: ATTEND Surgery | DX: R56.9 Unspecified convulsions (principal) | CPT/HCPCS: A0425; A0427 ==

== ENCOUNTER 2018-09-03 20:18 | Observation (INO) | payer MEDICARE, OTHER ==
--- NOTE | 2018-09-03 20:25 | ED Physician Documentation ---
PD HPI SEIZURE - Stated complaint Stated Complaint: SZ - History obtained from History obtained from: Patient - History of Present Illness Timing - onset: Enter time (18:45), Today Witnessed: Witnessed Number of seizures: Multiple Description of seizure activity: Generalized History of seizures: Known seizure disorder Treatment [employer]: Other (IV versed 2.5mg given by medics) Recently seen: Other (admitted April (2017) for falls, shoulder injury, UTI, supratherapeutic dilantin level) - Additional information Additional information: BIBA. Patient unable to contribute to HPI/ROS/PE due to AMS. Per medics, family reported to them that patient started seizing at 6:45 PM this evening and had at least six seizures since then. He was seizing on EMS arrival to scene, given 2.5mg IV Versed and stopped seizing en route to ED Review of Systems Unable to obtain: AMS PD PAST MEDICAL HISTORY - Past Medical History Cardiovascular: Hypertension, High cholesterol, MT Respiratory: None Neuro: Other Endocrine/Autoimmune: Type 2 diabetes GI: Colon polyps : Benign prostate hypertrophy, Indwelling catheter HEENT: None Psych: None Musculoskeletal: None Derm: None - Past Surgical History Past Surgical History: Yes General: Colonoscopy Neuro: Craniotomy - Present Medications Home Medications: Ambulatory Orders Medication Instructions Recorded Confirmed Phenytoin Sodium Extended 300 mg PO DAILY 05/18/13 09/04/18 [Dilantin] Aspirin [Aspirin EC] 81 mg PO DAILY #30 11/09/17 09/04/18 Finasteride 5 mg PO DAILY #30 11/09/17 09/04/18 Levetiracetam [Keppra] 1,000 mg PO BID #60 11/09/17 09/04/18 Lovastatin 40 mg PO QPM #30 11/09/17 09/04/18 Metformin HCl [Fortamet] 1,000 mg PO BIDWM #30 11/09/17 09/04/18 Phenytoin Sodium Extended 400 mg PO QPM #30 11/09/17 09/04/18 Tamsulosin [Flomax] 0.4 mg PO DAILY #30 11/09/17 09/04/18 Topiramate 50 mg PO BID #30 11/09/17 09/04/18 lamoTRIgine [LaMICtal] 25 mg PO BID #30 11/09/17 09/04/18 lamoTRIgine [LaMICtal] 200 mg PO BID #30 11/09/17 09/04/18 glipiZIDE ER [Glucotrol Xl] 2.5 mg PO DAILY 12/19/17 09/04/18 Lisinopril 10 mg PO QPM 02/15/18 09/04/18 Metoprolol Succinate 12.5 mg PO BID 09/04/18 09/04/18 Oxybutynin Chloride [Ditropan Xl] 10 mg PO QPM 09/04/18 09/04/18 - Allergies Allergies/Adverse Reactions: Allergies Allergy/AdvReac Type Severity Reaction Status Date / Time No Known Drug Allergies Allergy Verified 09/03/18 20:25 - Social History Does the pt smoke?: No Smoking Status: Never smoker Does the pt drink ETOH?: Yes Does the pt have substance abuse?: No - Immunizations Immunizations are current?: Yes - POLST Patient has POLST: No POLST Status: Full Code PD ED PE NORMAL - Vitals Vital signs reviewed: Yes - General General: Well developed/nourished, Other (does not respond to tactile or painful stimuli) - HEENT HEENT: PERRL, Moist mucous membranes - Neck Neck: No JVD - Cardiac Cardiac: No murmur - Respiratory Respiratory: No respiratory distress, Clear bilaterally - Derm Derm: Normal color, Warm and dry - Neuro Eye Opening: To Voice (He opens his eyes one time when his name is said loudly to him, but no intentional gaze and he follows no commands, subsequently does not respond to verbal, tactile, or even painful stimuli) Motor: None Verbal: None GCS Score: 5 PD ED PE EXPANDED - Cardiac Cardiac: Tachy, Regular Rhythm Results - Vitals Vitals: Vital Signs - 24 hr 09/03/18 09/03/18 09/03/18 20:19 21:23 22:22 Temperature 37.1 C Heart Rate 118 H 102 H 114 H Respiratory 20 18 28 H Rate Blood Pressure 122/61 119/72 O2 Saturation 89 L 96 99 09/03/18 23:26 Temperature Heart Rate 90 Respiratory 17 Rate Blood Pressure 103/73 O2 Saturation 100 Oxygen O2 Source [With Activity] Room air O2 Source Room air Oxygen Flow Rate 4 - EKG (time done) No standard instances Rate: Rate (enter#) (117), Tachy Rhythm: Sinus tachycardia [place]: LAD Intervals: Normal [place] QRS: Normal Ischemia: Normal ST segments, Q waves (III, aVF) - Labs Labs: Laboratory Tests 09/03/18 09/03/18 09/03/18 20:35 20:35 20:35 WBC 8.1 RBC 4.31 L Hgb 13.0 L Hct 39.5 L MCV 91.6 MCH 30.2 MCHC 32.9 RDW 14.4 Plt Count 214 MPV 8.2 Neut # (Auto) 6.0 Lymph # (Auto) 1.1 L [place] # (Auto) 0.7 Eos # (Auto) 0.1 Baso # (Auto) 0.0 Absolute Nucleated RBC 0.00 Nucleated RBC % 0.0 PT 11.9 INR 1.1 APTT 23.4 L Sodium 134 L Potassium 4.0 Chloride 102 Carbon Dioxide 17 L Anion Gap 15.0 H BUN 33 H Creatinine 1.4 H Estimated GFR (MDRD) 50 L Glucose 257 H Calcium 8.8 Total Bilirubin 0.4 AST 26 ALT 22 Alkaline Phosphatase 72 Troponin I Total Protein 7.9 Albumin 3.9 Globulin 4.0 Albumin/Globulin Ratio 1.0 Lipase 49 Phenytoin 09/03/18 09/03/18 20:35 20:35 WBC RBC Hgb Hct MCV MCH MCHC RDW Plt Count MPV Neut # (Auto) Lymph # (Auto) [place] # (Auto) Eos # (Auto) Baso # (Auto) Absolute Nucleated RBC Nucleated RBC % PT INR APTT Sodium Potassium Chloride Carbon Dioxide Anion Gap BUN Creatinine Estimated GFR (MDRD) Glucose Calcium Total Bilirubin AST ALT Alkaline Phosphatase Troponin I < 0.04 Total Protein Albumin Globulin Albumin/Globulin Ratio Lipase Phenytoin 5.8 - Rads (name of study) CT head Radiology: Prelim report reviewed, See rad report chest xray Radiology: Prelim report reviewed, See rad report PD MEDICAL DECISION MAKING - ED course Complexity details: reviewed old records, reviewed results, re-evaluated patient, considered differential, d/w family ED course: During ED stay, patient had no seizure activity but he continued to have significant expressive aphasia; he gradually was able to answer some questions with 1-2 intelligible word answers, but his ongoing difficulty in ability to answers articulately was noticeably off his baseline per patient's son. GCS eventually improved to 14, based on best response, although he had some difficulty following commands in addition to his difficulty answering questions as noted. D/W Dr. Bret Eubanks, neurology consulting senior practice director for [facility] (patient's neurologist is Ruben Deshpande at [facility]W.; Dr. Eubanks covering). He recommends 500mg IV dilantin and he says patient can be admitted to [facility] for observation (does not need to be transferred but would benefit from observation for recurrent seizures). Departure - Departure Disposition: ED Place in Observation Clinical Impression: Seizure Condition: Stable Discharge Date/Time: 09/04/18 00:20
[2018-09-03 20:51] LABS: BASOPHILS % (AUTO) 0.2 %; EOSINOPHILS # (AUTO) 0.1 10^3/uL (0.0-0.7); EOSINOPHILS % (AUTO) 1.6 %; LYMPHOCYTES # (AUTO) 1.1 10^3/uL (1.5-3.5); LYMPHOCYTES % (AUTO) 14.2 %; MEAN CORPUSCULAR HEMOGLOBIN 30.2 pg (27.0-31.0); MEAN CORPUSCULAR HGB CONC 32.9 g/dL (32.0-36.0); MEAN CORPUSCULAR VOLUME 91.6 fL (80.0-94.0); MEAN PLATELET VOLUME 8.2 fL (7.4-11.4); MONOCYTES # (AUTO) 0.7 10^3/uL (0.0-1.0); MONOCYTES % (AUTO) 9.1 %; NEUTROPHILS % (AUTO) 74.9 %; PLT - PLATELET COUNT 214 10^3/uL (130-450); RED BLOOD COUNT 4.31 10^6/uL (4.70-6.10); RED CELL DISTRIBUTION WIDTH 14.4 % (12.0-15.0); WHITE BLOOD COUNT 8.1 x10^3/uL (4.8-10.8)
[2018-09-03 20:58] LABS: INR 1.1 (0.8-1.2); PT - PROTHROMBIN TIME 11.9 secs (9.9-12.6)
[2018-09-03 20:59] LABS: ALBUMIN 3.9 g/dL (3.2-5.5); BILIRUBIN,TOTAL 0.4 mg/dL (0.2-1.0); CALCIUM 8.8 mg/dL (8.5-10.3); CREATININE 1.4 mg/dL (0.6-1.2); TOTAL PROTEIN 7.9 g/dL (6.7-8.2)
--- NOTE | 2018-09-03 21:46 | CT Report ---
Reason: seizure Procedure Date: 09/03/2018 Accession Number: [id number] / [id number] Procedure: CT - Head W/O CPT Code: FULL RESULT: EXAM: CT HEAD EXAM DATE: 09/03/2018 09:24 PM. CLINICAL HISTORY: Seizure. COMPARISON: CT 04/10/2018. TECHNIQUE: Multiaxial CT images were obtained from the foramen magnum to the vertex. Reformats: Sagittal and coronal. IV contrast: None. In accordance with CT protocol optimization, one or more of the following dose reduction techniques were utilized for this exam: automated exposure control, adjustment of mA and/or KV based on patient size, or use of iterative reconstructive technique. FINDINGS: Parenchyma: No acute hemorrhage, mass-effect, or midline shift. Prior surgical change and encephalomalacia again noted within the left frontal, temporal and parietal lobes. Small amount of encephalomalacia at the right cerebellum also again noted. Other mild periventricular white matter low attenuation again noted on the right. Extraaxial Spaces: No acute extra-axial collection. Ventricles: Stable mildly enlarged, as well as mild ex vacuo dilation of the left lateral ventricle. Sinuses and Orbits: Imaged paranasal sinuses, orbits, and mastoids show no significant abnormality. Bones: No depressed skull fracture. Stable left-sided prior craniotomy changes. Other: None. IMPRESSION: No significant change from the prior study. No acute intracranial abnormality identified. RADIA
--- NOTE | 2018-09-03 21:53 | XRAY Report ---
Reason: hypoxia, post-ictal Procedure Date: 09/03/2018 Accession Number: [id number] / [id number] Procedure: XR - Chest 1 View X-Ray CPT Code: 77225 FULL RESULT: EXAM: CHEST RADIOGRAPHY. EXAM DATE: 09/03/2018 09:40 PM. CLINICAL HISTORY: Hypoxia, post-ictal. COMPARISON: Chest 2 view 04/09/2018 11:42 AM. TECHNIQUE: 1 view. FINDINGS: Lungs/Pleura: New mild vascular congestion. No focal consolidation, effusion. No pneumothorax. Mediastinum: Within exam limitations, the cardiomediastinal contour is normal. Other: None. IMPRESSION: Mild vascular congestion. RADIA
[2018-09-03] MEDS ORDERED: PHENYTOIN INJ 500 MG in SODIUM CHLORIDE 0.9% 100ML 100 ML IV STA (23:21)
[2018-09-03] MEDS ORDERED: PROCHLORPERAZINE 10 MG/2 ML VIAL IVP PRN (23:41)
[2018-09-03] MEDS ORDERED: SODIUM CHLORIDE FLUSH 0.9% 10 ML SYRINGE IVP PRN (23:41)
[2018-09-03] MEDS ORDERED: ONDANSETRON 4 MG/2 ML VIAL IVP PRN (23:41)
[2018-09-03] MEDS ORDERED: LORazepam 2 MG/ML VIAL IVP PRN (23:41)
[2018-09-03] MEDS ORDERED: ACETAMINOPHEN 325 MG TABLET PO PRN (23:41)
[2018-09-03] MEDS ORDERED: oxyCODONE 5 MG TABLET PO PRN ×2 (23:41)
--- NOTE | 2018-09-03 23:48 | HISTORY & PHYSICAL EXAMINATION ---
Chief Complaint - Chief Complaint Chief Complaint: Seizures History of Present Illness - Admitted From Admitted From:: Emergency Department - History Obtained From Records Reviewed: Yes History obtained from: Patients son and medical records Exam Limitations: Patient post ictal and confused unable to provide history - History of Present Illness HPI Comment/Other: Patient is a 80-year-old gentleman with a past medical history significant for glioblastoma multiform status post surgical repair in 2004 with subsequent sei zure disorder, type 2 diabetes mellitus, BPH, hypertension, hyperlipidemia, coronary artery disease with history of non-ST elevation NC who presented to the emergency department with a chief complaint of seizures. The patient is unable to provide any history as he continues to have altered mental status and appears to be in a postictal state. The patient continually repeats phrases such as I been good, I love you and is laughing inappropriately. According to the medical records the patient was found to have continuous seizures at home by his son. Patient was in his normal state of health until around 645 when he began to seize. This is the first seizure he has had since April 2018. The son counted a total of 6 seizures before the medics arrived. The patient's son did try to give the patient some Ativan under the tongue but patient was continuing to seize. Once paramedics arrived they gave the patient a dose of Versed after which the patients seizure was aborted. The patient was in a postictal state when he arrived in the emergency department and continued to be drowsy and did not return to his baseline mentation even once returning to the medical floor. The patient did undergo a CT head in the emergency department which was negative. The patient was found to have a low Dilantin level. The patient's creatinine was mildly elevated at 1 4 and his BUN was also elevated. The patient did not have any signs of a acute infection as he had no leukocytosis, chest x-ray was negative for infiltrates. The patient's urine analysis was also negative. The emergency room physician spoke with the neurologist on-call at [facility]. He advised that the patient be loaded with Dilantin given that his Dilantin level was low and monitored overnight with neuro checks to ensure that he does not have any further seizure activity. The patient was placed in observation and will be monitored overnight. History - Past Medical History Cardiovascular: reports: Hypertension, High cholesterol, NC (NSTEMI) Respiratory: reports: None Neuro: reports: Other Endocrine/Autoimmune: reports: Type 2 diabetes GI: reports: Colon polyps : reports: Benign prostate hypertrophy, Indwelling catheter HEENT: reports: None Psych: reports: None Musculoskeletal: reports: None Derm: reports: None MRSA Hx?: No - Past Surgical History General: reports: Colonoscopy Neuro: reports: Craniotomy - Family & Social History Family History: Mother: (Father had CHF), Cancer (Bone cancer), Father: , CAD Living arrangement: At home Living Situation: With family Social History Notes: Born in [place]. Served 2 years in [employer]. 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 lives in [facility] because she has no hips from infection. She has lived there for 2 years. He was never a smoker and only tried it once and no hx of alcohol abuse. [facility] after his hopsitalization at [facility] 09/2017. Was up and walking around normally doesn't need a cane. Usually independent ADL's. Daughter is POA and takes care of finances, and he can't drive. Uses paratransit. He is currently living in [place] with son and Daughter in law. - Substance History Use: Uses substance without health or social issues: NONE - POLST Patient has POLST: No Meds/Allgy - Home Medications Home Medications: Ambulatory Orders Medication Instructions Recorded Confirmed Phenytoin Sodium Extended 300 mg PO DAILY 05/18/13 04/11/18 [Dilantin] Acetaminophen 325 mg PO Q4H PRN #30 11/09/17 04/11/18 Aspirin [Aspirin EC] 81 mg PO DAILY #30 11/09/17 04/11/18 Calcium Carbonate/Vitamin D3 1 tab PO DAILY #30 11/09/17 04/11/18 [Calcium 500-Vit D3 200 Tablet] Finasteride 5 mg PO DAILY #30 11/09/17 04/11/18 Levetiracetam [Keppra] 1,000 mg PO BID #60 11/09/17 04/11/18 Lovastatin 40 mg PO QPM #30 11/09/17 04/11/18 Metformin HCl [Fortamet] 1,000 mg PO BIDWM #30 11/09/17 04/11/18 Metoprolol Succinate 25 mg PO DAILY #30 11/09/17 04/11/18 Phenytoin Sodium Extended 400 mg PO QPM #30 11/09/17 04/11/18 Senna [Senokot] 17.2 mg PO DAILY PRN #30 11/09/17 04/11/18 Tamsulosin [Flomax] 0.4 mg PO DAILY #30 11/09/17 04/11/18 Topiramate 50 mg PO BID #30 11/09/17 04/11/18 lamoTRIgine [LaMICtal] 25 mg PO BID #30 11/09/17 04/11/18 lamoTRIgine [LaMICtal] 200 mg PO BID #30 11/09/17 04/11/18 Lorazepam [Ativan] 1 mg PO Q2H PRN #25 tablet 12/19/17 04/11/18 glipiZIDE ER [Glucotrol Xl] 2.5 mg PO DAILY 12/19/17 04/11/18 Lisinopril 10 mg ORAL DAILY 02/15/18 04/11/18 L. Acidophilus/L.bulgaricus 1 each PO BID #28 tablet 04/11/18 [Lactobacillus Tablet] Linezolid 600 mg PO BID 10 Days #20 tablet 04/12/18 Linezolid 600 mg PO BID 10 Days #20 tablet 04/15/18 Linezolid [Zyvox] 600 mg PO ONCE 10 Days #20 tablet 04/15/18 Saccharomyces Boulardii [Florastor] 250 mg PO BID 20 Days #40 capsule 04/15/18 Saccharomyces Boulardii [Florastor] 250 mg PO BID 20 Days #40 capsule 04/15/18 Nitrofurantoin [Macrobid] 100 mg PO BID #20 capsule 04/16/18 - Allergies Allergies/Adverse Reactions: Allergies Allergy/AdvReac Type Severity Reaction Status Date / Time No Known Drug Allergies Allergy Verified 09/03/18 20:25 Review of Systems - Other Findings Other Findings: Patient unable to provide a review of systems secondary to postictal state and confusion with inability to answer questions appropriately. Prior Level of Functionality: Patient is independent around the house still able to ambulate without an assistance device. The patient's son and [id number] do help out but patient is relatively independent. Exam - Vital Signs Reviewed Vital Signs: Yes Vital Signs: Vital Signs x48h Temp Pulse Resp BP Pulse Ox 09/03/18 23:26 90 17 103/73 100 09/03/18 22:22 114 H 28 H 119/72 99 09/03/18 21:23 102 H 18 122/61 96 09/03/18 20:19 37.1 C 118 H 20 89 L - Physical Exam General Appearance: positive: No acute distress, Alert, Other (Very confused, nable to answer questions or follow commands, not at his baseline.) Eyes Bilateral: positive: Normal inspection, PERRL, EOMI, No lid inflammation, Conjunctivae nml, No scleral icterus ENT: positive: ENT inspection nml, Pharynx nml, Dry mucous membranes. negative: Purulent nasal drainage, Pharyngeal erythema, Oral lesions Neck: positive: Nml inspection, Thyroid nml, No JVD, Trachea midline. negative: Thyromegaly, Lymphadenopathy (R), Lymphadenopathy (L), Stiff neck, Carotid bruit, Tracheal deviation Respiratory: positive: Chest non-tender, No respiratory distress, Breath sounds nml. negative: Wheezes, Rales, Rhonchi Cardiovascular: positive: Regular rate & rhythm, No murmur, No gallop Peripheral Pulses: positive: 2+ Abdomen: positive: Non-tender, No organomegaly, Nml bowel sounds, No distention. negative: Guarding, Rebound, Hepatomegaly Back: positive: Nml inspection. negative: CVA tenderness (R), CVA tenderness (L) Skin: positive: Color nml, No rash, Warm, Dry. negative: Cyanosis, Diaphoresis, Pallor Extremities: positive: Non-tender, Full ROM, Nml appearance, No pedal edema Neurologic/Psychiatric: positive: CN's nml (2-12), Motor nml, Sensation nml, Mood/affect nml, Disoriented to person, Disoriented to place, Disoriented to time, Other (Pateint repeats phrases and cannot answer questions, He is laughing inappropriately.) Conclusion/Plan - Problem List (1) Seizure Conclusion/Plan: The patient has a history of difficult to control seizures after having a surgery to remove a brain tumor several years ago. The patient is on 4 antiepileptic medications. Patient had not had a seizure since April 2018 but today had multiple seizures at home. According to the patient's son the patient had 6 seizures. These were back to back. The patient did not respond to Ativan at home. The patient did respond to Versed when paramedics gave it to him on arrival to his home. The patient appears to have aborted his seizure activity. The patient however has not returned back to his baseline mental status and continues to be confused and is repeating phrases. The patient is not following commands or answering questions appropriately. The patient's CT head was negative. The emergency room physician spoke with neurology on-call at [facility] who asked that the patient be loaded with Dilantin as his Dilantin level was low and be monitored overnight in observation. The patient does not appear to be having infection that would otherwise lower the seizure threshold. The patient does have acute kidney injury which could also lower the threshold for seizures. Plan: Patient was given Dilantin load in the emergency department and will be continued on his home dose of Dilantin We will check a Dilantin level in the morning We will continue the patient on home doses of topiramate Keppra and Lamictal. If the patient continues to have seizure activity or does not return to his baseline mental status we may need to consider MRI and transfer to [facility] for further evaluation from neurology and possible EEG. Give IV fluids in setting of acute kidney injury. (2) Altered mental status Conclusion/Plan: Patient is not at his baseline mental status after numerous seizures at home. This may still be a postictal state but it is possible after seizure activity the patient may be at a new baseline. Patient did undergo a CT head which did not show any acute changes. Patient will be monitored overnight and we hope the patient will return to his baseline mentation in the morning. The patient is being loaded with Dilantin and will be continued on his antiepileptic medications. Patient did not have finding of any infection. If patient's mentation does not improve we will need to consider getting an MRI and talking to neurology at [facility] to discuss the case further as the patient may be having subclinical seizures and could possibly need EEG monitoring. Qualifiers: Altered mental status type: disorientation Qualified Code(s): R41.0 - Disorientation, unspecified (3) ARF (acute renal failure) Conclusion/Plan: The patient does present with some acute renal failure. The patient's creatinine is up to 1.4 from a baseline of 1.1. The patient also has an elevated BUN of 33. The patient may be dehydrated and appears to be dry on examination. The patient's elevation in creatinine could have led to decreased seizure threshold. The patient will be given hydration with IV fluids. We will continue to monitor the patient's creatinine. We will avoid any nephrotoxic agents. Qualifiers: Acute renal failure type: unspecified Qualified Code(s): N17.9 - Acute kidney failure, unspecified (4) Diabetes Conclusion/Plan: The patient has a history of type 2 diabetes mellitus. At home the patient is on oral diabetic medications and not on insulin. On presentation the patient's blood glucose is significantly elevated to 57. Patient's blood glucose may be elevated secondary to seizure activity at home. Plan: We will hold the patient's metformin and glipizide Patient will be started on sliding scale insulin while he is hospitalized We will check a hemoglobin A1c Patient's blood glucose will be monitored before meals at bedtime IV fluids Qualifiers: Diabetes mellitus type: type 2 Diabetes mellitus skilled nursing insulin use: without long term care pharmacist use Diabetes mellitus complication status: with hyperglycemia Qualified Code(s): E11.65 - Type 2 diabetes mellitus with hyperglycemia (5) Hypertension Conclusion/Plan: The patient has a history of hypertension and on presentation to the emergency department the patient's blood pressure is within normal limits. The patient will be continued on his antihypertensive medications. We will continue to monitor his blood pressure and titrate medications as needed. Qualifiers: Hypertension type: essential hypertension Qualified Code(s): I10 - Essential (primary) hypertension (6) Hyperlipidemia Conclusion/Plan: The patient has a history of hyperlipidemia and is on a statin at home. While the patient is hospitalized he will be continued on statin. Qualifiers: Hyperlipidemia type: unspecified Qualified Code(s): E78.5 - Hyperlipidemia, unspecified (7) BPH (benign prostatic hyperplasia) Conclusion/Plan: Patient has a history of BPH and is on Flomax and finasteride at home. We will continue this medication while the patient is hospitalized. Qualifiers: Lower urinary tract symptom presence: unspecified whether lower urinary tract symptoms present Qualified Code(s): N40.0 - Benign prostatic hyperplasia without lower urinary tract symptoms - Lab Results Lab results reviewed: Yes Fish Bones: 09/03/18 20:35 09/03/18 20:35 Other Lab Results: Laboratory Results WBC 8.1 x10^3/uL (4.8-10.8) 09/03/18 20:35 RBC 4.31 10^6/uL (4.70-6.10) L 09/03/18 20:35 Hgb 13.0 g/dL (14.0-18.0) L 09/03/18 20:35 Hct 39.5 % (42.0-52.0) L 09/03/18 20:35 MCV 91.6 fL (80.0-94.0) 09/03/18 20: MCH 30.2 pg (27.0-31.0) 09/03/18 20:35 MCHC 32.9 g/dL (32.0-36.0) 09/03/18 20:35 RDW 14.4 % (12.0-15.0) 09/03/18 20:35 Plt Count 214 10^3/uL (130-450) 09/03/18 20:35 MPV 8.2 fL (7.4-11.4) 09/03/18 20:35 Neut # (Auto) 6.0 10^3/uL (1.5-6.6) 09/03/18 20:35 Lymph # (Auto) 1.1 10^3/uL (1.5-3.5) L 09/03/18 20:35 [place] # (Auto) 0.7 10^3/uL (0.0-1.0) 09/03/18 20:35 Eos # (Auto) 0.1 10^3/uL (0.0-0.7) 09/03/18 20:35 Baso # (Auto) 0.0 10^3/uL (0.0-0.1) 09/03/18 20:35 Absolute Nucleated RBC 0.00 x10^3/uL 09/03/18 20:35 Nucleated RBC % 0.0 /100WBC 09/03/18 20:35 PT 11.9 secs (9.9-12.6) 09/03/18 20:35 INR 1.1 (0.8-1.2) 09/03/18 20:35 APTT 23.4 secs (24.9-33.3) L 09/03/18 20:35 Sodium 134 mmol/L (135-145) L 09/03/18 20:35 Potassium 4.0 mmol/L (3.5-5.0) 09/03/18 20:35 Chloride 102 mmol/L (101-111) 09/03/18 20:35 Carbon Dioxide 17 mmol/L (21-32) L 09/03/18 20:35 Anion Gap 15.0 (6-13) H 09/03/18 20:35 BUN 33 mg/dL (6-20) H 09/03/18 20:35 Creatinine 1.4 mg/dL (0.6-1.2) H 09/03/18 20:35 Estimated GFR (MDRD) 50 (>89) L 09/03/18 20:35 Glucose 257 mg/dL (70-100) H 09/03/18 20:35 Calcium 8.8 mg/dL (8.5-10.3) 09/03/18 20:35 Total Bilirubin 0.4 mg/dL (0.2-1.0) 09/03/18 20:35 AST 26 IU/L (10-42) 09/03/18 20:35 ALT 22 IU/L (10-60) 09/03/18 20:35 Alkaline Phosphatase 72 IU/L (42-121) 09/03/18 20:35 Troponin I < 0.04 ng/mL (<0.49) 09/03/18 20:35 Total Protein 7.9 g/dL (6.7-8.2) 09/03/18 20:35 Albumin 3.9 g/dL (3.2-5.5) 09/03/18 20:35 Globulin 4.0 g/dL (2.1-4.2) 09/03/18 20:35 Albumin/Globulin Ratio 1.0 (1.0-2.2) 09/03/18 20:35 Lipase 49 U/L (22-51) 09/03/18 20:35 Phenytoin 5.8 ug/mL 09/03/18 20:35 - Diagnostic Imaging Results Diagnostic Imaging Results: positive: Final report reviewed Diagnostic Imaging Results Comments: CT head Impression: No significant change from prior study. No acute intracranial abnormality identified. Chest x-ray Impression: Mild vascular congestion. Core Measures - Anticipated LOS I expect patient to be DC'd or transferred within 96 hours.: Yes - DVT/VTE - Prophylaxis VTE/DVT Prophylaxis med ordered at admit?: Yes
[2018-09-04] MEDS: INSULIN REGULAR HUMAN 100 UNIT/1 ML 10 ML MDV SUBQ SCH ×3 (01:00→12:15)
[2018-09-04] MEDS: SODIUM CHLORIDE FLUSH 0.9% 10 ML SYRINGE IVP SCH ×2 (01:02→09:20)
[2018-09-04] MEDS: SODIUM CHLORIDE 0.9% 1,000 ML IV SCH ×2 (01:14→10:07)
[2018-09-04 01:31] LABS: BILIRUBIN,URINE NEGATIVE (NEGATIVE); GLUCOSE, URINE (UA) NEGATIVE (NEGATIVE); KETONES,URINE (UA) NEGATIVE (NEGATIVE); LEUKOCYTE ESTERASE, URINE NEGATIVE (NEGATIVE); NITRITE,URINE NEGATIVE (NEGATIVE); OCCULT BLOOD,URINE NEGATIVE (NEGATIVE); PH,URINE 6.5 PH (5.0-7.5); PROTEIN,URINE NEGATIVE (NEGATIVE); UROBILINOGEN,URINE 0.2 (NORMAL) E.U./dL (NORMAL)
[2018-09-04 01:34] LABS: CLARITY,URINE CLEAR (CLEAR)
[2018-09-04 05:36] LABS: BASOPHILS % (AUTO) 0.2 %; EOSINOPHILS # (AUTO) 0.1 10^3/uL (0.0-0.7); EOSINOPHILS % (AUTO) 1.3 %; HGB - HEMOGLOBIN 13.4 g/dL (14.0-18.0); LYMPHOCYTES % (AUTO) 24.4 %; MEAN CORPUSCULAR HEMOGLOBIN 30.1 pg (27.0-31.0); MEAN CORPUSCULAR HGB CONC 33.4 g/dL (32.0-36.0); MEAN PLATELET VOLUME 7.8 fL (7.4-11.4); MONOCYTES # (AUTO) 0.8 10^3/uL (0.0-1.0); MONOCYTES % (AUTO) 10.5 %; NEUTROPHILS # (AUTO) 5.1 10^3/uL (1.5-6.6); NEUTROPHILS % (AUTO) 63.6 %; PLT - PLATELET COUNT 206 10^3/uL (130-450); RED BLOOD COUNT 4.44 10^6/uL (4.70-6.10); RED CELL DISTRIBUTION WIDTH 14.6 % (12.0-15.0)
[2018-09-04 05:54] LABS: ALBUMIN 3.7 g/dL (3.2-5.5); ALBUMIN/GLOBULIN RATIO 0.9 (1.0-2.2); BILIRUBIN,TOTAL 0.5 mg/dL (0.2-1.0); CALCIUM 8.5 mg/dL (8.5-10.3); CREATININE 1.1 mg/dL (0.6-1.2); MAGNESIUM 1.8 mg/dL (1.7-2.8); PHOSPHORUS 3.7 mg/dL (2.5-4.6); TOTAL PROTEIN 7.7 g/dL (6.7-8.2)
[2018-09-04 05:55] LABS: HB2 TOTAL 13.8 g/dL; HEMOGLOBIN A1C 0.54 g/dL; HEMOGLOBIN A1C % 5.7 % (4.6-6.2)
[2018-09-04] MEDS ORDERED: TOPIRAMATE 25 MG TABLET PO SCH (09:00)
[2018-09-04] MEDS ORDERED: POLYETHYLENE GLYCOL 3350 17 GM PACKET PO SCH (09:00)
[2018-09-04] MEDS ORDERED: FINASTERIDE 5 MG TABLET PO SCH (09:00)
[2018-09-04] MEDS ORDERED: TAMSULOSIN 0.4 MG CAPSULE PO SCH (09:00)
[2018-09-04] MEDS ORDERED: lamoTRIgine 100 MG TABLET PO SCH ×2 (09:00→21:00)
[2018-09-04] MEDS ORDERED: PHENYTOIN ER 100 MG CAPSULE PO SCH ×2 (09:00→21:00)
[2018-09-04] MEDS ORDERED: lamoTRIgine 25 MG TABLET PO SCH ×3 (09:00)
[2018-09-04] MEDS ORDERED: LEVETIRACETAM 1000 MG PO SCH (09:00)
[2018-09-04] MEDS ORDERED: FAMOTIDINE 20 MG TABLET PO SCH (09:00)
[2018-09-04] MEDS ORDERED: METOPROLOL SUCCINATE 25 MG TABLET PO SCH (09:00)
[2018-09-04] MEDS ORDERED: ENOXAPARIN 40 MG/0.4 ML SYRINGE SUBQ SCH (09:00)
[2018-09-04] MEDS ORDERED: ASPIRIN EC 81 MG TABLET PO SCH (09:00)
[2018-09-04] MEDS ORDERED: levETIRAcetam 500 MG/5 ML UDC PO SCH (09:00)
[2018-09-04 11:35] VITALS: BP 105/71
--- NOTE | 2018-09-04 13:21 | Discharge Plan ---
Discharge Plan Disposition: 01 Home, Self Care Condition: Poor Diet: Diabetic Activity Restrictions: Activity as Tolerated Shower Restrictions: No (fall precaution) Instruction Topics: Epilepsy Meds, Epilepsy Dx Additional Instructions or Follow Up instructions: You may follow up your PCP in one week, followup your neurologist as out-pt. Your seizure is controlled, your mental status is as your baseline. Should your symptoms return or worsen, you may present ER or call 911 for help. No Smoking: If you smoke, Please STOP! Call for help. Follow-up with: Do Powers DO [Provider Admit Priv/Credential] -
--- NOTE | 2018-09-04 13:29 | DISCHARGE SUMMARY ---
Discharge Summary Discharge Date: 09/04/18 Discharging Provider: CHRISTIANSON Primary Care Provider: Do Mina Condition at Discharge: Poor Discharge Disposition: 01 Home, Self Care Discharge Facility Name: home - DIAGNOSES Admission Diagnoses: (1) Seizure (2) Altered mental status (3) ARF (acute renal failure) (4) Diabetes (5) Hypertension (6) Hyperlipidemia (7) BPH (benign prostatic hyperplasia) Discharge Diagnoses with Status of Each Condition: 1) Seizure no seizure, resolved. continue home meds regimen, follow up PCP and his neurologist (2) Altered mental status resolved as her baseline (3) ARF (acute renal failure) resolved as his baseline (4) Diabetes stable, followup PCP (5) Hypertension stable, (6) Hyperlipidemia stable (7) BPH (benign prostatic hyperplasia) stable, follow up PCP - HPI History of Present Illness: refer from Dr. Campbell's HPI on 09/03/18 for pt as the following: Patient is a 80-year-old gentleman with a past medical history significant for glioblastoma multiform status post surgical repair in 2004 with subsequent seizure disorder, type 2 diabetes mellitus, BPH, hypertension, hyperlipidemia, coronary artery disease with history of non-ST elevation UT who presented to the emergency department with a chief complaint of seizures. The patient is unable to provide any history as he continues to have altered mental status and appears to be in a postictal state. The patient continually repeats phrases such as I been good, I love you and is laughing inappropriately. According to the medical records the patient was found to have continuous seizures at home by his son. Patient was in his normal state of health until around 645 when he began to seize. This is the first seizure he has had since April 2018. The son counted a total of 6 seizures before the medics arrived. The patient's son did try to give the patient some Ativan under the tongue but patient was continuing to seize. Once paramedics arrived they gave the patient a dose of Versed after which the patients seizure was aborted. The patient was in a postictal state when he arrived in the emergency department and continued to be drowsy and did not return to his baseline mentation even once returning to the medical floor. The patient did undergo a CT head in the emergency department which was negative. The patient was found to have a low Dilantin level. The patient's creatinine was mildly elevated at 1 4 and his BUN was also elevated. The caden acosta did not have any signs of a acute infection as he had no leukocytosis, chest x-ray was negative for infiltrates. The patient's urine analysis was also negative. The emergency room physician spoke with the neurologist on-call at [facility]. He advised that the patient be loaded with Dilantin given that his Dilantin level was low and monitored overnight with neuro checks to ensure that he does not have any further seizure activity. The patient was placed in observation and will be monitored overnight. - HOSPITAL COURSE Hospital Course: pt was admitted for AMS and seizure. pt has no seizure at hospital after treatment. pt's mental status resume his baseline, resolved his acute confusion. his JUAN is resolved after hydration. Pt state he is ready to d/c to home - ALLERGIES Allergies/Adverse Reactions: Allergies Allergy/AdvReac Type Severity Reaction Status Date / Time No Known Drug Allergies Allergy Verified 09/03/18 20:25 - MEDICATIONS Home Medications: Ambulatory Orders Medication Instructions Recorded Confirmed Phenytoin Sodium Extended 300 mg PO DAILY 05/18/13 09/04/18 [Dilantin] Aspirin [Aspirin EC] 81 mg PO DAILY #30 11/09/17 09/04/18 Finasteride 5 mg PO DAILY #30 11/09/17 09/04/18 Levetiracetam [Keppra] 1,000 mg PO BID #60 11/09/17 09/04/18 Lovastatin 40 mg PO QPM #30 11/09/17 09/04/18 Metformin HCl [Fortamet] 1,000 mg PO BIDWM #30 11/09/17 09/04/18 Phenytoin Sodium Extended 400 mg PO QPM #30 11/09/17 09/04/18 Tamsulosin [Flomax] 0.4 mg PO DAILY #30 11/09/17 09/04/18 Topiramate 50 mg PO BID #30 11/09/17 09/04/18 lamoTRIgine [LaMICtal] 25 mg PO BID #30 11/09/17 09/04/18 lamoTRIgine [LaMICtal] 200 mg PO BID #30 11/09/17 09/04/18 glipiZIDE ER [Glucotrol Xl] 2.5 mg PO DAILY 12/19/17 09/04/18 Lisinopril 10 mg PO QPM 02/15/18 09/04/18 Metoprolol Succinate 12.5 mg PO BID 09/04/18 09/04/18 Oxybutynin Chloride [Ditropan Xl] 10 mg PO QPM 09/04/18 09/04/18 - PHYSICAL EXAM AT DISCHARGE General Appearance: positive: No acute distress, Alert. negative: Lethargic Eyes Bilateral: positive: Normal inspection, PERRL, No lid inflammation, Conjunctivae nml ENT: positive: ENT inspection nml, Pharynx nml, No signs of dehydration. negative: Purulent nasal drainage, Pharyngeal erythema, Oral lesions Neck: positive: Nml inspection, Thyroid nml, No JVD, Trachea midline. negative: Thyromegaly, Lymphadenopathy (R), Lymphadenopathy (L), Stiff neck, Swelling/bruising, Tracheal deviation Respiratory: positive: Chest non-tender, No respiratory distress, Breath sounds nml. negative: Wheezes, Rales, Rhonchi Cardiovascular: positive: Regular rate & rhythm, No murmur, No gallop. negative: Irregularly irregular, Extrasystoles, Tachycardia, Bradycardia, JVD present, Systolic murmur, Diastolic murmur Peripheral Pulses: positive: 2+ Abdomen: positive: Non-tender, No organomegaly, Nml bowel sounds, No distention. negative: Tenderness, Guarding, Rebound Back: positive: Nml inspection. negative: CVA tenderness (R), CVA tenderness (L) Skin: positive: Color nml, No rash, Warm, Dry. negative: Cyanosis, Diaphoresis, Pallor Extremities: positive: Non-tender, Full ROM, Nml appearance. negative: Calf ten derness, Joint swelling, Cliff's sign/cords Neurologic/Psychiatric: positive: Motor nml, Sensation nml, Mood/affect nml. negative: Weakness, Sensory loss, Facial droop, Slurred/abnml speech, Depressed mood/affect - LABS Result Diagrams: 09/04/18 05:19 09/04/18 05:19 - FOLLOW UP Follow Up: You may follow up your PCP in one week, followup your neurologist as out-pt. Your seizure is controlled, your mental status is as your baseline. Should your symptoms return or worsen, you may present ER or call 911 for help. - TIME SPENT Time Spent in Discharge (Minutes): 50
[2018-09-04] MEDS ORDERED: NON FORMULARY MED (Lovastatin [Lovastatin] 40 MG) PO SCH (21:00)
[2018-09-04] MEDS ORDERED: ATORVASTATIN 10 MG TABLET PO SCH (21:00)
== END 2018-09-04 15:17 | disposition home or self-care (01) ==
LOC: EDSEX → EDUNIT# → ED 20:18 → OBS 23:41
PROVIDERS: ADMIT Internal Medicine; ATTEND Nurse Practitioner Gerontology
DX: G40.909 Epilepsy, unspecified, not intractable, without status epilepticus (principal); N17.9 Acute kidney failure, unspecified; E11.65 Type 2 diabetes mellitus with hyperglycemia; Z79.84 Long term (current) use of oral hypoglycemic drugs; I10 Essential (primary) hypertension; I25.10 Atherosclerotic heart disease of native coronary artery without angina pectoris; I25.2 Old myocardial infarction; E78.5 Hyperlipidemia, unspecified; Z85.841 Personal history of malignant neoplasm of brain; N40.0 Benign prostatic hyperplasia without lower urinary tract symptoms
CPT/HCPCS: 36415; 70450; 71045; 80053; 80185; 81003; 83036; 83605; 83690; 83735; 84100; 84484; 85025; 85610; 85730; 93005; 96372; 96374; 99284; 99285; A9270; G0378; J1650; 81001; 87086

== ENCOUNTER 2019-05-16 12:49 | Outpatient (CLI) | payer MEDICARE, OTHER | END 2019-05-16 12:50 | disposition critical access hospital (66) | LOC: EMS 12:49 | PROVIDERS: ATTEND Surgery | DX: R56.9 Unspecified convulsions (principal) | CPT/HCPCS: A0425; A0427 ==

== ENCOUNTER 2019-05-16 13:11 | Emergency (ER) | payer MEDICARE, OTHER ==
[2019-05-16 13:31] LABS: BASOPHILS % (AUTO) 0.4 %; EOSINOPHILS # (AUTO) 0.2 10^3/uL (0.0-0.7); HGB - HEMOGLOBIN 13.6 g/dL (14.0-18.0); LYMPHOCYTES # (AUTO) 2.4 10^3/uL (1.5-3.5); LYMPHOCYTES % (AUTO) 30.4 %; MEAN CORPUSCULAR HEMOGLOBIN 29.4 pg (27.0-31.0); MEAN CORPUSCULAR HGB CONC 30.4 g/dL (32.0-36.0); MEAN CORPUSCULAR VOLUME 96.8 fL (80.0-94.0); MEAN PLATELET VOLUME 9.8 fL (7.4-11.4); MONOCYTES # (AUTO) 0.8 10^3/uL (0.0-1.0); MONOCYTES % (AUTO) 9.8 %; NEUTROPHILS # (AUTO) 4.4 10^3/uL (1.5-6.6); NEUTROPHILS % (AUTO) 55.9 %; PLT - PLATELET COUNT 239 10^3/uL (130-450); RED BLOOD COUNT 4.62 10^6/uL (4.70-6.10); RED CELL DISTRIBUTION WIDTH 14.1 % (12.0-15.0); WHITE BLOOD COUNT 7.8 x10^3/uL (4.8-10.8)
--- NOTE | 2019-05-16 13:35 | ED Physician Documentation ---
PD HPI SEIZURE - Stated complaint Stated Complaint: SIEZURES - Chief complaint Chief Complaint: Neuro - History obtained from History obtained from: Patient, Family, EMS - History of Present Illness Timing - onset: Today Witnessed: Witnessed Number of seizures: Multiple, Lasted minutes (2-3), Recovered between seizure Description of seizure activity: Generalized, Tonic clonic Injury during seizure: Bit tongue. No: Fell, Head injury, Neck injury, Shoulder dislocation Pain level max: 0 Pain level now: 0 Associated symptoms: No: Unknown, Headache, Vision changes, Chest pain, Palpitations, Diaphoresis, Dyspnea, Nausea / vomiting History of seizures: Known seizure disorder (brain tumor removed in 2004, has seizures approx monthly) Contributing factors: No: Off meds, Out of meds, Changed meds, Low blood sugar, Head injury, Substance abuse, EtOH withdrawal, Benzo withdrawal, Overdose, Fever, Sleep deprivation Treatment SMOKED MEAT PREPARER: Valium (and ativan) Review of Systems Ten Systems: 10 systems reviewed and negative Constitutional: denies: Fever, Chills Ears: denies: Ear pain Nose: denies: Rhinorrhea / runny nose, Congestion Throat: denies: Sore throat Cardiac: denies: Chest pain / pressure Respiratory: denies: Cough GI: denies: Nausea, Vomiting, Diarrhea Skin: denies: Rash Musculoskeletal: denies: Neck pain, Back pain Neurologic: denies: Focal weakness, Numbness, LOC PD PAST MEDICAL HISTORY - Past Medical History Cardiovascular: Hypertension, High cholesterol, [place] Respiratory: None Neuro: Other Endocrine/Autoimmune: Type 2 diabetes GI: Colon polyps : Benign prostate hypertrophy, Indwelling catheter HEENT: None Psych: None Musculoskeletal: None Derm: None - Past Surgical History Past Surgical History: Yes General: Colonoscopy Neuro: Craniotomy - Present Medications Home Medications: Ambulatory Orders Medication Instructions Recorded Confirmed Phenytoin Sodium Extended 300 mg PO DAILY 05/18/13 09/04/18 [Dilantin] Aspirin [Aspirin EC] 81 mg PO DAILY #30 11/09/17 09/04/18 Finasteride 5 mg PO DAILY #30 11/09/17 09/04/18 Levetiracetam [Keppra] 1,000 mg PO BID #60 11/09/17 09/04/18 Lovastatin 40 mg PO QPM #30 11/09/17 09/04/18 Metformin HCl [Fortamet] 1,000 mg PO BIDWM #30 11/09/17 09/04/18 Phenytoin Sodium Extended 400 mg PO QPM #30 11/09/17 09/04/18 Tamsulosin [Flomax] 0.4 mg PO DAILY #30 11/09/17 09/04/18 Topiramate 50 mg PO BID #30 11/09/17 09/04/18 lamoTRIgine [LaMICtal] 25 mg PO BID #30 11/09/17 09/04/18 lamoTRIgine [LaMICtal] 200 mg PO BID #30 11/09/17 09/04/18 glipiZIDE ER [Glucotrol Xl] 2.5 mg PO DAILY 12/19/17 09/04/18 Lisinopril 10 mg PO QPM 02/15/18 09/04/18 Metoprolol Succinate 12.5 mg PO BID 09/04/18 09/04/18 Oxybutynin Chloride [Ditropan Xl] 10 mg PO QPM 09/04/18 09/04/18 - Allergies Allergies/Adverse Reactions: Allergies Allergy/AdvReac Type Severity Reaction Status Date / Time No Known Drug Allergies Allergy Verified 05/16/19 13:20 - Social History Does the pt smoke?: No Smoking Status: Never smoker Does the pt drink ETOH?: Yes Does the pt have substance abuse?: No - Immunizations Immunizations are current?: Yes - POLST Patient has POLST: No POLST Status: Full Code PD ED PE NORMAL - Vitals Vital signs reviewed: Yes - General General: Alert and oriented X 3, No acute distress, Well developed/nourished - HEENT HEENT: Atraumatic, PERRL, Moist mucous membranes, Other (Mild superficial tongue bite galarza.) - Neck Neck: Supple, no meningeal sign, No bony TTP - Cardiac Cardiac: RRR - Respiratory Respiratory: No respiratory distress, Clear bilaterally - Abdomen Abdomen: Soft, Non tender, Non distended - Back Back: No spinal TTP - Derm Derm: Warm and dry - Extremities Extremities: No deformity, No tenderness to palpate, Normal ROM s pain, No edema - Neuro Neuro: Alert and oriented X 3, administrative operations coordinator 2-12 intact, No motor deficit, No sensory deficit, Normal speech Eye Opening: Spontaneous Motor: Obeys Commands Verbal: Oriented GCS Score: 15 - Psych Psych: Normal mood, Normal affect Results - Vitals Vitals: Vital Signs - 24 hr 05/16/19 05/16/19 05/16/19 13:11 13:49 15:06 Temperature 36.4 C L Heart Rate 116 H 103 H 77 Respiratory 14 18 18 Rate Blood Pressure 137/75 H 126/71 118/71 O2 Saturation 96 98 99 05/16/19 15:30 Temperature Heart Rate 78 Respiratory 17 Rate Blood Pressure 118/71 O2 Saturation 100 Oxygen O2 Source [] Room air O2 Source Room air - Labs Labs: Laboratory Tests 05/16/19 05/16/19 05/16/19 13:25 13:25 15:41 WBC 7.8 RBC 4.62 L Hgb 13.6 L Hct 44.7 MCV 96.8 H MCH 29.4 MCHC 30.4 L RDW 14.1 Plt Count 239 MPV 9.8 Neut # (Auto) 4.4 Lymph # (Auto) 2.4 [place] # (Auto) 0.8 Eos # (Auto) 0.2 Baso # (Auto) 0.0 Absolute Nucleated RBC 0.00 Nucleated RBC % 0.0 Sodium 135 Potassium 5.0 Chloride 100 L Carbon Dioxide 14 L Anion Gap 21.0 H BUN 26 H Creatinine 1.4 H Estimated GFR (MDRD) 50 L Glucose 185 H Calcium 9.0 Total Bilirubin 0.5 AST 24 ALT 27 Alkaline Phosphatase 72 Total Protein 8.7 H Albumin 4.2 Globulin 4.5 H Albumin/Globulin Ratio 0.9 L Lipase 44 Urine Color YELLOW Urine Clarity CLEAR Urine pH 7.5 Ur Specific Lyman 1.010 Urine Protein NEGATIVE Urine Glucose (UA) NEGATIVE Urine Ketones NEGATIVE Urine Occult Blood NEGATIVE Urine Nitrite NEGATIVE Urine Bilirubin NEGATIVE Urine Urobilinogen 0.2 (NORMAL) Ur Leukocyte Esterase NEGATIVE Ur Microscopic Review NOT INDICATED Urine Culture Comments NOT INDICATED Phenytoin 10.8 - Rads (name of study) head CT Radiology: Prelim report reviewed, EMP read contemporaneously, See rad report (As before, there are areas of cortical and subcortical encephalomalacia involving the inferior and lateral left frontal lobe, the anterior to mid left temporal lobe, left parietal convexity, and the inferior right cerebellar hemisphere. 2. As before, there is mild patchy chronic small vessel ischemic change in the bilateral cerebral white matter. 3. No intracranial hemorrhage, mass-effect, or current CT evidence of acute CVA. ) PD MEDICAL DECISION MAKING - ED course Complexity details: considered differential, d/w patient, d/w family ED course: 73-year-old male with a recurrent seizure disorder. Multiple seizures today. No acute laboratory findings other than acidosis which is likely related to the seizures. No UTI. No abnormalities on head CT. His phenytoin level is slightly low for him, but unclear if he took his medication this morning or not. Family will check when they get home. Patient is back to his baseline and ambulating well. Patient and family counseled regarding signs and symptoms for which I believe and urgent re-evaluation would be necessary. Patient with good understanding of and agreement to plan and is comfortable going home at this time This document was made in part using voice recognition software. While efforts are made to proofread this document, sound alike and grammatical errors may occur. Departure - Departure Disposition: 01 Home, Self Care Clinical Impression: Recurrent seizures Condition: Good Instructions: ED Seizure Recurrent Follow-Up: Do Powers, [Primary Care Provider] - Within 3 Days Comments: Continue your medications at home. Please ensure that he took his Dilantin this morning as his level is on the low end of the therapeutic scale at approximately 10. Return if he worsens
[2019-05-16 13:48] LABS: ALBUMIN 4.2 g/dL (3.2-5.5); ALBUMIN/GLOBULIN RATIO 0.9 (1.0-2.2); BILIRUBIN,TOTAL 0.5 mg/dL (0.2-1.0); CREATININE 1.4 mg/dL (0.6-1.2); PHENYTOIN (DILANTIN) 10.8 ug/mL; TOTAL PROTEIN 8.7 g/dL (6.7-8.2)
--- NOTE | 2019-05-16 13:58 | CT Report ---
Reason: recurrent seizures, increased today Procedure Date: 05/16/2019 Accession Number: [id number] / [id number] Procedure: CT - HEAD WO CPT Code: FULL RESULT: EXAM: CT HEAD EXAM DATE: 05/16/2019 01:35 PM. CLINICAL HISTORY: Recurrent seizures, increased today. COMPARISON: HEAD W/O 09/03/2018 9:17 PM. TECHNIQUE: Multiaxial CT images were obtained from the foramen magnum to the vertex. Reformats: Sagittal and coronal. IV contrast: None. In accordance with CT protocol optimization, one or more of the following dose reduction techniques were utilized for this exam: automated exposure control, adjustment of mA and/or KV based on patient size, or use of iterative reconstructive technique. FINDINGS: There is motion artifact through the lower head. Parenchyma: As before, there are moderate areas of cortical and subcortical encephalomalacia involving the inferior and lateral left frontal lobe, the anterior to mid left temporal lobe, the left parietal convexity, and the inferior right cerebellar hemisphere. Also, there is mild patchy hypodensity elsewhere in the bilateral cerebral white matter consistent with chronic small vessel ischemic change. There are no new low or high-density lesions. There is no mass-effect. Pittman-white differentiation otherwise is intact. Extraaxial Spaces: Normal for age. No subdural or epidural collections identified. Ventricles: Moderate ventriculomegaly, as before, with particular ex vacuo dilation of the frontal and temporal horns of the left lateral ventricle. Sinuses and Orbits: Imaged paranasal sinuses, orbits, and mastoids show no significant abnormality. Bones: Prior left temporal craniotomy. No acute skull fracture is identified. Other: No scalp contusion is identified. IMPRESSION: 1. As before, there are areas of cortical and subcortical encephalomalacia involving the inferior and lateral left frontal lobe, the anterior to mid left temporal lobe, left parietal convexity, and the inferior right cerebellar hemisphere. 2. As before, there is mild patchy chronic small vessel ischemic change in the bilateral cerebral white matter. 3. No intracranial hemorrhage, mass-effect, or current CT evidence of acute CVA. RADIA
[2019-05-16] MEDS ORDERED: SODIUM CHLORIDE 0.9% 1,000 ML IV ONE (14:16)
[2019-05-16] MEDS ORDERED: LIDOCAINE 2% URO-JET 5 ML SYRINGE UR STA (15:29)
[2019-05-16 15:49] LABS: BILIRUBIN,URINE NEGATIVE (NEGATIVE); GLUCOSE, URINE (UA) NEGATIVE (NEGATIVE); KETONES,URINE (UA) NEGATIVE (NEGATIVE); LEUKOCYTE ESTERASE, URINE NEGATIVE (NEGATIVE); NITRITE,URINE NEGATIVE (NEGATIVE); OCCULT BLOOD,URINE NEGATIVE (NEGATIVE); PH,URINE 7.5 PH (5.0-7.5); PROTEIN,URINE NEGATIVE (NEGATIVE); UROBILINOGEN,URINE 0.2 (NORMAL) E.U./dL (NORMAL)
[2019-05-16 15:51] LABS: CLARITY,URINE CLEAR (CLEAR)
[2019-05-16 16:44] VITALS: BP 120/77
== END 2019-05-16 16:35 | disposition home or self-care (01) ==
LOC: EDUNIT# → ED 13:11
DX: G40.909 Epilepsy, unspecified, not intractable, without status epilepticus (principal); I10 Essential (primary) hypertension; E11.9 Type 2 diabetes mellitus without complications; Z79.84 Long term (current) use of oral hypoglycemic drugs; Z79.82 Long term (current) use of aspirin
CPT/HCPCS: 36415; 70450; 80053; 80185; 81001; 81003; 83690; 85025; 87086; 96360; 99284

== ENCOUNTER 2019-10-09 09:23 | Outpatient (CLI) | payer MEDICARE, OTHER | END 2019-10-09 09:24 | disposition critical access hospital (66) | LOC: EMS 09:23 | PROVIDERS: ATTEND Surgery | DX: R56.9 Unspecified convulsions (principal); R40.2431 Glasgow coma scale score 3-8, in the field [EMT or ambulance] | CPT/HCPCS: A0425; A0427 ==

== ENCOUNTER 2019-10-09 09:40 | Emergency (ER) | payer MEDICARE, OTHER ==
--- NOTE | 2019-10-09 09:55 | ED Physician Documentation ---
PD HPI SEIZURE - Stated complaint Stated Complaint: SZ - History obtained from History obtained from: Patient, Family, EMS - History of Present Illness Timing - onset: How many minutes ago (20), Today Witnessed: Witnessed (family members called EMS for generalized seizure. He was still seizing on EMS arrival and patient given Versed 5 mg IM, then another 5 mg IV when IV started (EMS report sounds like seizure stopping was prior to second dose likely having time to have effect, so likely from first dose). Decreased ventilatory rate/depth after seizure stopped/meds given and had BVM enroute, improving on arrival with spont respirations and gagging at oropharyngeal airway.) Number of seizures: Lasted minutes Description of seizure activity: Generalized Injury during seizure: None History of seizures: Known seizure disorder (related to prior brain surgery for CA.) Contributing factors: No: Off meds, Low blood sugar Treatment FISH TENDER: Other (versed 10 mg) Similar symptoms before: Diagnosis (seizures) Review of Systems Unable to obtain: Unresponsive PD PAST MEDICAL HISTORY - Past Medical History Cardiovascular: Hypertension, High cholesterol, [place] Respiratory: None Neuro: Other Endocrine/Autoimmune: Type 2 diabetes GI: Colon polyps : Benign prostate hypertrophy, Indwelling catheter HEENT: None Psych: None Musculoskeletal: None Derm: None - Past Surgical History Past Surgical History: Yes General: Colonoscopy Neuro: Craniotomy - Present Medications Home Medications: Ambulatory Orders Medication Instructions Recorded Confirmed Phenytoin Sodium Extended 300 mg PO DAILY 05/18/13 09/04/18 [Dilantin] Aspirin [Aspirin EC] 81 mg PO DAILY #30 11/09/17 09/04/18 Finasteride 5 mg PO DAILY #30 11/09/17 09/04/18 Levetiracetam [Keppra] 1,000 mg PO BID #60 11/09/17 09/04/18 Lovastatin 40 mg PO QPM #30 11/09/17 09/04/18 Metformin HCl [Fortamet] 1,000 mg PO BIDWM #30 11/09/17 09/04/18 Phenytoin Sodium Extended 400 mg PO QPM #30 11/09/17 09/04/18 Tamsulosin [Flomax] 0.4 mg PO DAILY #30 11/09/17 09/04/18 Topiramate 50 mg PO BID #30 11/09/17 09/04/18 lamoTRIgine [LaMICtal] 25 mg PO BID #30 11/09/17 09/04/18 lamoTRIgine [LaMICtal] 200 mg PO BID #30 11/09/17 09/04/18 glipiZIDE ER [Glucotrol Xl] 2.5 mg PO DAILY 12/19/17 09/04/18 Lisinopril 10 mg PO QPM 02/15/18 09/04/18 Metoprolol Succinate 12.5 mg PO BID 09/04/18 09/04/18 Oxybutynin Chloride [Ditropan Xl] 10 mg PO QPM 09/04/18 09/04/18 - Allergies Allergies/Adverse Reactions: Allergies Allergy/AdvReac Type Severity Reaction Status Date / Time No Known Drug Allergies Allergy Verified 05/16/19 13:20 - Social History Does the pt smoke?: No Smoking Status: Never smoker Does the pt drink ETOH?: Yes Does the pt have substance abuse?: No - Immunizations Immunizations are current?: Yes - POLST Patient has POLST: No POLST Status: Full Code PD ED PE NORMAL - Vitals Vital signs reviewed: Yes - General General: Well developed/nourished, Other (positive gag reflex. Unlabored breathing. Appears adequate ventilations. Has nasal cannula. ) - HEENT HEENT: Moist mucous membranes, Pharynx benign - Neck Neck: Supple, no meningeal sign, No adenopathy - Cardiac Cardiac: RRR, No murmur - Respiratory Respiratory: Clear bilaterally - Abdomen Abdomen: Normal bowel sounds, Soft, Non distended - Derm Derm: Normal color, Warm and dry - Extremities Extremities: No edema, No calf tenderness / cord - Neuro Neuro: No: Alert and oriented X 3 Eye Opening: To Pain Motor: Localizes to Pain Verbal: Inappropriate GCS Score: 10 Results - Vitals Vitals: Vital Signs - 24 hr 10/09/19 10/09/19 10/09/19 09:51 09:55 10:25 Temperature 36.4 C L Heart Rate 99 103 H 91 Respiratory 23 18 21 Rate Blood Pressure 136/74 H 116/70 112/67 O2 Saturation 92 94 91 L 10/09/19 10/09/19 10/09/19 11:04 11:47 14:16 Temperature Heart Rate 85 83 79 Respiratory 14 18 16 Rate Blood Pressure 112/70 116/75 141/73 H O2 Saturation 94 100 100 Oxygen O2 Source [With Activity] Room air O2 Source Room air Oxygen Flow Rate 2 - Labs Labs: Laboratory Tests 10/09/19 10/09/19 10:55 10:55 WBC 6.8 RBC 4.59 L Hgb 13.9 L Hct 44.0 MCV 95.9 H MCH 30.3 MCHC 31.6 L RDW 14.7 Plt Count 223 MPV 10.5 Neut # (Auto) 4.9 Lymph # (Auto) 0.9 L Levy # (Auto) 0.7 Eos # (Auto) 0.3 Baso # (Auto) 0.0 Absolute Nucleated RBC 0.00 Nucleated RBC % 0.0 Sodium 135 Potassium 5.0 Chloride 104 Carbon Dioxide 21 Anion Gap 10.0 BUN 21 H Creatinine 1.3 H Estimated GFR (MDRD) 54 L Glucose 163 H Calcium 8.8 Magnesium 1.9 Total Bilirubin 0.4 AST 23 ALT 27 Alkaline Phosphatase 84 Total Protein 8.7 H Albumin 4.1 Globulin 4.6 H Albumin/Globulin Ratio 0.9 L Lipase 44 Phenytoin 13.9 - Rads (name of study) head CT Radiology: Prelim report reviewed (post operative changes. No acute bleeding nor swelling. ), See rad report PD MEDICAL DECISION MAKING - ED course Complexity details: re-evaluated patient (Fmaily member here and he is slowly returned to baseline normal. States the seizure clinic likes to keep his dilantin level at or just above 20, so given an extra dose 3 mg/kg orally. ), considered differential (history of seizures and had seizure. No obvious precipitant. deeply sleepy on arrival but had Midazolam dose. He is able to maintain sats with head position and NC. Appears to be ventilating adequately. Slowly rouses and returns to baseline. ), d/w patient, d/w family Departure - Departure Disposition: 01 Home, Self Care Clinical Impression: Grand mal seizure Condition: Stable Record reviewed to determine appropriate education?: Yes Instructions: ED Seizure Recurrent Follow-Up: Do Powers DO [Primary Care Provider] - Comments: Continue usual medications. Follow-up with your primary care as needed Discharge Date/Time: 10/09/19 14:17
[2019-10-09] MEDS ORDERED: SODIUM CHLORIDE 0.9% 1,000 ML IV ONE (10:10)
[2019-10-09 11:05] LABS: BASOPHILS % (AUTO) 0.6 %; EOSINOPHILS # (AUTO) 0.3 10^3/uL (0.0-0.7); EOSINOPHILS % (AUTO) 3.8 %; HGB - HEMOGLOBIN 13.9 g/dL (14.0-18.0); LYMPHOCYTES # (AUTO) 0.9 10^3/uL (1.5-3.5); LYMPHOCYTES % (AUTO) 13.3 %; MEAN CORPUSCULAR HEMOGLOBIN 30.3 pg (27.0-31.0); MEAN CORPUSCULAR HGB CONC 31.6 g/dL (32.0-36.0); MEAN CORPUSCULAR VOLUME 95.9 fL (80.0-94.0); MEAN PLATELET VOLUME 10.5 fL (7.4-11.4); MONOCYTES # (AUTO) 0.7 10^3/uL (0.0-1.0); MONOCYTES % (AUTO) 9.9 %; NEUTROPHILS # (AUTO) 4.9 10^3/uL (1.5-6.6); PLT - PLATELET COUNT 223 10^3/uL (130-450); RED BLOOD COUNT 4.59 10^6/uL (4.70-6.10); RED CELL DISTRIBUTION WIDTH 14.7 % (12.0-15.0); WHITE BLOOD COUNT 6.8 x10^3/uL (4.8-10.8)
--- NOTE | 2019-10-09 11:17 | CT Report ---
Reason: seizure Procedure Date: 10/09/2019 Accession Number: [id number] / [id number] Procedure: CT - HEAD WO CPT Code: Final Report FULL RESULT: EXAM: CT HEAD EXAM DATE: 10/09/2019 10:28 AM. CLINICAL HISTORY: Seizure. COMPARISON: HEAD W/O 05/16/2019 1:31 PM HEAD W/O 09/03/2018 9:17 PM. TECHNIQUE: Multiaxial CT images were obtained from the foramen magnum to the vertex. Reformats: Sagittal and coronal. IV contrast: None. In accordance with CT protocol optimization, one or more of the following dose reduction techniques were utilized for this exam: automated exposure control, adjustment of mA and/or KV based on patient size, or use of iterative reconstructive technique. FINDINGS: Parenchyma: As seen on prior exams, there are areas of cortical encephalomalacia in the inferior and lateral aspect of the left frontal lobe, the anterior to mid left temporal lobe, left parietal convexity, and inferior right cerebellar hemisphere. No intraparenchymal hemorrhage. No evidence of mass, midline shift, or CT findings of acute infarction. Pittman-white differentiation is otherwise distinct. Diffuse chronic microangiopathic white matter changes are evident. Extraaxial Spaces: Normal for age. No subdural or epidural collections identified. Ventricles: The ventricles and cortical sulci are enlarged, consistent with age-related tissue loss. Sinuses and orbits: Imaged paranasal sinuses, orbits, and mastoids show no significant abnormality. Bones: There is evidence of prior left frontotemporal craniotomy. No fracture or calvarial defect. Other: None. IMPRESSION: 1. No intracranial hemorrhage, mass-effect, CT evidence of acute infarct, or other acute interval change. 2. Unchanged appearance of areas of chronic cortical and subcortical encephalomalacia involving the inferior and lateral left frontal lobe, anterior to mid left temporal lobe, left parietal convexity, and the inferior right cerebellar hemisphere. 3. Generalized age-related cortical atrophic changes. RADIA
[2019-10-09 11:38] LABS: ALBUMIN 4.1 g/dL (3.2-5.5); ALBUMIN/GLOBULIN RATIO 0.9 (1.0-2.2); BILIRUBIN,TOTAL 0.4 mg/dL (0.2-1.0); CALCIUM 8.8 mg/dL (8.5-10.3); CREATININE 1.3 mg/dL (0.6-1.2); MAGNESIUM 1.9 mg/dL (1.7-2.8); PHENYTOIN (DILANTIN) 13.9 ug/mL; TOTAL PROTEIN 8.7 g/dL (6.7-8.2)
[2019-10-09] MEDS ORDERED: PHENYTOIN ER 100 MG CAPSULE PO STA (13:59)
[2019-10-09 14:16] VITALS: BP 141/73
== END 2019-10-09 14:17 | disposition home or self-care (01) ==
LOC: EDUNIT# → ED 09:40
DX: G40.409 Other generalized epilepsy and epileptic syndromes, not intractable, without status epilepticus (principal); I10 Essential (primary) hypertension; E11.9 Type 2 diabetes mellitus without complications; Z79.84 Long term (current) use of oral hypoglycemic drugs
CPT/HCPCS: 36415; 70450; 80053; 80185; 83690; 83735; 85025; 99284; 99285; A9270; 94770

== ENCOUNTER 2020-01-07 09:03 | Outpatient (CLI) | payer MEDICARE, OTHER | END 2020-01-07 09:04 | disposition critical access hospital (66) | LOC: EMS 09:03 | PROVIDERS: ATTEND Surgery | DX: R56.9 Unspecified convulsions (principal) | CPT/HCPCS: A0425; A0427 ==

== ENCOUNTER 2020-08-20 08:00 | Outpatient (CLI) | payer MEDICARE, OTHER ==
[2020-08-20 11:24] LABS: BASOPHILS % (AUTO) 0.3 %; EOSINOPHILS # (AUTO) 0.2 10^3/uL (0.0-0.7); EOSINOPHILS % (AUTO) 2.6 %; HGB - HEMOGLOBIN 13.9 g/dL (14.0-18.0); LYMPHOCYTES # (AUTO) 1.6 10^3/uL (1.5-3.5); MEAN CORPUSCULAR HEMOGLOBIN 29.1 pg (27.0-31.0); MEAN CORPUSCULAR HGB CONC 30.8 g/dL (32.0-36.0); MEAN CORPUSCULAR VOLUME 94.4 fL (80.0-94.0); MEAN PLATELET VOLUME 10.5 fL (7.4-11.4); MONOCYTES # (AUTO) 0.6 10^3/uL (0.0-1.0); MONOCYTES % (AUTO) 9.1 %; NEUTROPHILS # (AUTO) 3.7 10^3/uL (1.5-6.6); NEUTROPHILS % (AUTO) 61.7 %; PLT - PLATELET COUNT 303 10^3/uL (130-450); RED BLOOD COUNT 4.78 10^6/uL (4.70-6.10); RED CELL DISTRIBUTION WIDTH 13.6 % (12.0-15.0); WHITE BLOOD COUNT 6.1 x10^3/uL (4.8-10.8)
[2020-08-20 12:03] LABS: CREATININE,URINE 133.3 mg/dL; MICROALBUMIN,URINE 0.8 mg/dL (0-300.0)
[2020-08-20 12:17] LABS: ALBUMIN 4.3 g/dL (3.2-5.5); ALKALINE PHOSPHATASE 77 IU/L (42-121); ALT ALANINE AMINOTRANSFERASE 20 IU/L (10-60); AST ASPARTATE AMINOTRANSFERASE 16 IU/L (10-42); BILIRUBIN,TOTAL 0.7 mg/dL (0.2-1.0); BUN - BLOOD UREA NITROGEN 27 mg/dL (6-20); CARBON DIOXIDE - CO2 20 mmol/L (21-32); CHLORIDE 104 mmol/L (101-111); CHOL/HDL RATIO 3.5 (<5.0); CHOLESTEROL 139 mg/dL; CREATININE 1.1 mg/dL (0.6-1.2); GLUCOSE 129 mg/dL (70-100); HDL CHOLESTEROL 40 mg/dL; LDL CHOLESTEROL,CALCULATED 74 mg/dL; LDL/HDL RATIO 1.9 (<3.6); PHENYTOIN (DILANTIN) 16.9 ug/mL; SODIUM 134 mmol/L (135-145); TOTAL PROTEIN 8.6 g/dL (6.7-8.2); VLDL CHOLESTEROL 25 mg/dL
[2020-08-20 13:02] LABS: HEMOGLOBIN A1c% 6.3 % (4.27-6.07)
== END 2020-08-20 23:59 | disposition home or self-care (01) ==
LOC: LAB.WCP 08:00
PROVIDERS: ATTEND Family Medicine
DX: E78.5 Hyperlipidemia, unspecified (principal); E11.9 Type 2 diabetes mellitus without complications; I10 Essential (primary) hypertension; I25.10 Atherosclerotic heart disease of native coronary artery without angina pectoris; G40.909 Epilepsy, unspecified, not intractable, without status epilepticus
CPT/HCPCS: 36415; 80053; 80061; 80185; 82043; 82570; 83036; 83721; 84443; 85025

== ENCOUNTER 2020-10-14 08:33 | Outpatient (CLI) | payer MEDICARE, OTHER | END 2020-10-14 08:34 | disposition critical access hospital (66) | LOC: EMS 08:33 | PROVIDERS: ATTEND Surgery | DX: R56.9 Unspecified convulsions (principal) | CPT/HCPCS: A0425; A0427 ==

== ENCOUNTER 2020-10-14 08:48 | Emergency (ER) | payer MEDICARE, OTHER ==
--- NOTE | 2020-10-14 09:04 | ED Physician Documentation ---
History of Present Illness - Stated complaint Stated Complaint: SZ - History obtained from History obtained from: EMS - Additonal information Additional information: Patient is brought to the emergency department by EMS after being found to have prolonged seizure activity at home. The patient has a history of seizure disorder for which he takes Lamictal, and EMS states that the family reported that they give the patient his medication every day. The patient had actually already had his Lamictal this morning, when he was noted to suddenly slumped over at the breakfast bar. He began to have a look like seizure-like activity and hit his head on the counter and then fell to the ground. Seizure activity continued for an uncertain amount of time during which the family noted a lapse, which they felt was the end of the seizure. They gave him a sublingual dose of Ativan, after which the patient very shortly began to seize again. They gave him a second dose of Ativan and noted a very short lapse in seizure activity then this patient's seizure activity began again. At this point they called EMS. When EMS arrived, they state that they noted that the seizure-like activity was beginning to juliocesar, and the family stated that the seizure was "stopping" again. However, EMS states that the lapse was so short, on the order of seconds, that they would not even consider the end of the seizure. They state that the seizure activity began again at which time to give the patient a dose of Versed which ended the seizure activity for good. The entire episode occurred over approximately 15 to 20-minutes. Medics state that the patient has been without further seizure activity in route and well initially somnolent and unresponsive, he has begun to wake up a little. He is otherwise been stable. The family denied any recent illness in the patient. It is not known on initial interview whether he has hit his head recently or had any changes in his medication. The patient is not able to give any history at this time, though he does deny any pain anywhere. Medics note that there was some blood around his mouth. Review of Systems Unable to obtain: Unresponsive PD PAST MEDICAL HISTORY - Past Medical History Cardiovascular: Hypertension, High cholesterol, [place] Respiratory: None Neuro: Other Endocrine/Autoimmune: Type 2 diabetes GI: Colon polyps : Benign prostate hypertrophy, Indwelling catheter HEENT: None Psych: None Musculoskeletal: None Derm: None - Past Surgical History Past Surgical History: Yes General: Colonoscopy Neuro: Craniotomy - Present Medications Home Medications: Ambulatory Orders Medication Instructions Recorded Confirmed Phenytoin Sodium Extended 300 mg PO DAILY 05/18/13 10/14/20 [Dilantin] Aspirin [Aspirin EC] 81 mg PO DAILY #30 11/09/17 10/14/20 Finasteride 5 mg PO DAILY #30 11/09/17 10/14/20 Levetiracetam [Keppra] 1,000 mg PO BID #60 11/09/17 10/14/20 Lovastatin 40 mg PO QPM #30 11/09/17 10/14/20 Metformin HCl [Fortamet] 1,000 mg PO BIDWM #30 11/09/17 10/14/20 Phenytoin Sodium Extended 400 mg PO QPM #30 11/09/17 10/14/20 Tamsulosin [Flomax] 0.4 mg PO DAILY #30 11/09/17 10/14/20 Topiramate 50 mg PO BID #30 11/09/17 10/14/20 lamoTRIgine [LaMICtal] 25 mg PO BID #30 11/09/17 10/14/20 lamoTRIgine [LaMICtal] 200 mg PO BID #30 11/09/17 10/14/20 glipiZIDE ER [Glucotrol Xl] 2.5 mg PO DAILY 12/19/17 10/14/20 Metoprolol Succinate 12.5 mg PO BID 09/04/18 10/14/20 - Allergies Allergies/Adverse Reactions: Allergies Allergy/AdvReac Type Severity Reaction Status Date / Time No Known Drug Allergies Allergy Verified 10/14/20 09:01 - Social History Does the pt smoke?: No Smoking Status: Never smoker Does the pt drink ETOH?: Yes Does the pt have substance abuse?: No - Immunizations Immunizations are current?: Yes - POLST Patient has POLST: No POLST Status: Full Code PD ED PE NORMAL - Vitals Vital signs reviewed: Yes - General General: No acute distress, Other (Patient is somnolent, but does respond to voice by making eye contact and saying "yes" when his name is called) - HEENT HEENT: PERRL, EOMI, Moist mucous membranes, Other (Mild, Dried bloody residue around lips and a little on tongue. Small bite shaan present on the side of the patient's tongue. No laceration. Head is otherwise atraumatic.) - Neck Neck: Supple, no meningeal sign, Other (No bony step-off. Patient is in c- collar.) - Cardiac Cardiac: RRR, No murmur, Strong equal pulses - Respiratory Respiratory: No respiratory distress, Clear bilaterally - Abdomen Abdomen: Soft, Non tender, Non distended - Derm Derm: Normal color, Warm and dry, No rash, Other (No skin trauma) - Extremities Extremities: No deformity, No edema - Neuro Neuro: No motor deficit (Grosslyno facial droop or obvious focal deficit), Other (The patient is moving all 4 extremities spontaneously, though is not alert enough to cooperate with a full neurologic exam. He opens eyes to voice and makes eye contact and does acknowledge his name being said. Is able to shake his head "no" to simple questions, but no further conversation. ). No: Alert and oriented X 3 (Patient appears postictal and somewhat sedated/drowsy, but is Increasingly responsive throughout stay in the emergency department.) - Psych Psych: Normal mood, Normal affect Results - Vitals Vitals: Oxygen O2 Source [] Room air O2 Source Room air Oxygen Flow Rate 2 - EKG (time done) 0936 Rate: Rate (enter#) (84) Rhythm: NSR Benavides: Normal Intervals: Prolonged FL QRS: Low voltage Ischemia: Normal ST segments, T wave inversion (lead 3) Compare to prior EKG: Old EKG unavailable Computer interpretation: Agree with computer - Labs Labs: Laboratory Tests 10/14/20 10/14/20 10/14/20 09:55 09:55 09:55 WBC 7.3 RBC 4.30 L Hgb 12.9 L Hct 41.1 L MCV 95.6 H MCH 30.0 MCHC 31.4 L RDW 14.5 Plt Count 263 MPV 9.5 Neut # (Auto) 5.8 Lymph # (Auto) 0.7 L Otero # (Auto) 0.6 Eos # (Auto) 0.1 Baso # (Auto) 0.0 Absolute Nucleated RBC 0.00 Nucleated RBC % 0.0 PT 12.4 INR 1.1 Sodium 134 L Potassium 4.6 Chloride 104 Carbon Dioxide 19 L Anion Gap 11.0 BUN 27 H Creatinine 1.3 H Estimated GFR (MDRD) 54 L Glucose 164 H Calcium 8.8 Total Bilirubin 0.7 AST 20 ALT 22 Alkaline Phosphatase 74 Troponin I High Sens Total Protein 8.1 Albumin 3.9 Globulin 4.2 Albumin/Globulin Ratio 0.9 L Lipase 41 10/14/20 09:55 WBC RBC Hgb Hct MCV MCH MCHC RDW Plt Count MPV Neut # (Auto) Lymph # (Auto) Otero # (Auto) Eos # (Auto) Baso # (Auto) Absolute Nucleated RBC Nucleated RBC % PT INR Sodium Potassium Chloride Carbon Dioxide Anion Gap BUN Creatinine Estimated GFR (MDRD) Glucose Calcium Total Bilirubin AST ALT Alkaline Phosphatase Troponin I High Sens 8.1 Total Protein Albumin Globulin Albumin/Globulin Ratio Lipase PD MEDICAL DECISION MAKING - ED course Complexity details: reviewed old records, reviewed results, re-evaluated patient, considered differential, d/w patient, d/w family ED course: Patient was evaluated immediately upon arrival in the emergency department by myself. He appeared to be postictal, but with steady improvement in mentation. It was not clear whether the patient had had a more extended period of seizure activity or whether he had had actual cessation of the seizure between episodes. The medics seem to feel that the former was more likely the case. The patient had a history of seizure disorder and family had reported that the patient generally had a breakthrough seizure every several months. They state he had stated that the only reason they called EMS was because he seemed to keep returning to seizure activity. Given this and the fact that the patient did hit his head when he had fallen and was not able to upon arrival give me a clear history, I did go ahead and work him up with labs and CT scan of the head. The patient's work-up was unremarkable. He did demonstrate definite improvement throughout his stay in the emergency department and was alert and conversant upon reevaluation. It is not exactly clear what is caused the patient's breakthrough seizures as the patient still maintains that he has not had any other symptoms recently. We have instructed the family that if the patient has further seizures today, then he may need to be admitted or transferred for closer observation and neurologic reevaluation. Otherwise, he may plan to follow-up with his neurologist as usual. For now, he should continue his anticonvulsant regimen at home, as per his usual routine. Departure - Departure Disposition: 01 Home, Self Care Clinical Impression: Breakthrough seizure Closed head injury Qualifiers: Encounter type: initial encounter Qualified Code(s): S09.90XA - Unspecified injury of head, initial encounter Condition: Stable Instructions: ED Head Injury Closed, ED Seizure Recurrent Comments: You have been worked up thoroughly for your seizure and head injury today. Testing has included blood work, EKG, and CT scans of the head and neck. All of these are unremarkable for Significant abnormality. There are many reasons a breakthrough seizure can occur, and occasional breakthrough seizures are to be expected in people who have seizure disorder. Common triggers can be illness, lack of sleep, changes in food consumption or medication metabolism, or dehydration. Occasionally a breakthrough seizure simply happens and it is unclear why. If you have a higher frequency of breakthrough seizures than usual, especially a number of seizures within a matter of days or few weeks, then it is important that you follow-up with your neurologist to determine whether your medications need to be changed to something else or have a dose increase. Discharge Date/Time: 10/14/20 13:05
[2020-10-14] MEDS ORDERED: SODIUM CHLORIDE 0.9% 1,000 ML IV STA (09:11)
--- NOTE | 2020-10-14 09:50 | CT Report ---
PROCEDURE: HEAD WO INDICATIONS: Head injury, seizure TECHNIQUE: Noncontrast 4.5 mm thick angled axial sections acquired from the foramen magnum to the vertex. For r adiation dose reduction, the following was used: automated exposure control, adjustment of mA and/or kV according to patient size. COMPARISON: 01/07/2020, 10/09/2019, 05/16/2019 FINDINGS: Image quality: Excellent. CSF spaces: Basal cisterns are patent. No extra-axial fluid collections. Ventricles are normal in size and shape. Brain: Areas of cortical encephalomalacia with adjacent hypoattenuating presumed gliosis are similar to the prior study, again involving the left lateral frontal lobe, anterolateral left temporal lobe, and anterolateral left parietal lobe. Similar encephalomalacia in the inferior right cerebellar hemis phere. Findings are all unchanged from multiple prior studies. Chronic vascular ischemic changes pres ent in both cerebral hemispheres. No acute intracranial hemorrhage identified. Skull and face: Calvarium and visualized facial bones are intact, without suspicious lesions. Sinuses: Visualized sinuses and mastoids are clear. IMPRESSION: No acute intracranial abnormality. Chronic findings unchanged from comparison study. Reviewed by: Stephan Chavarria MD on 10/14/2020 9:48 AM PST Approved by: Stephan Chavarria MD on 10/14/2020 9:48 AM PST Station ID: [id number]
[2020-10-14 10:00] LABS: BASOPHILS % (AUTO) 0.4 %; EOSINOPHILS # (AUTO) 0.1 10^3/uL (0.0-0.7); EOSINOPHILS % (AUTO) 1.1 %; HGB - HEMOGLOBIN 12.9 g/dL (14.0-18.0); LYMPHOCYTES # (AUTO) 0.7 10^3/uL (1.5-3.5); LYMPHOCYTES % (AUTO) 9.9 %; MEAN CORPUSCULAR HGB CONC 31.4 g/dL (32.0-36.0); MEAN CORPUSCULAR VOLUME 95.6 fL (80.0-94.0); MEAN PLATELET VOLUME 9.5 fL (7.4-11.4); MONOCYTES # (AUTO) 0.6 10^3/uL (0.0-1.0); MONOCYTES % (AUTO) 8.8 %; NEUTROPHILS # (AUTO) 5.8 10^3/uL (1.5-6.6); NEUTROPHILS % (AUTO) 79.4 %; PLT - PLATELET COUNT 263 10^3/uL (130-450); RED CELL DISTRIBUTION WIDTH 14.5 % (12.0-15.0); WHITE BLOOD COUNT 7.3 x10^3/uL (4.8-10.8)
[2020-10-14 10:06] LABS: INR 1.1 (0.8-1.2); PT - PROTHROMBIN TIME 12.4 secs (9.9-12.6)
--- NOTE | 2020-10-14 10:06 | CT Report ---
PROCEDURE: CERVICAL SPINE WO INDICATIONS: Fall, trauma TECHNIQUE: Noncontrast 3 mm thick sections acquired from the skull base to the T4 level. Sagittal and coronal r eformats were then constructed. For radiation dose reduction, the following was used: automated exp osure control, adjustment of mA and/or kV according to patient size. COMPARISON: None. FINDINGS: Image quality: Excellent. Bones: No fractures or dislocations. Visualized superior ribs are intact. Soft tissues: Prevertebral soft tissues are normal in thickness. No paravertebral hematomas. No ap ical pneumothoraces. IMPRESSION: No CT evidence of acute traumatic cervical spine injury. Reviewed by: Stephan Chavarria MD on 10/14/2020 10:05 AM [facility] Approved by: Stephan Chavarria MD on 10/14/2020 10:05 AM [facility] Station ID: [id number]
[2020-10-14 10:15] LABS: ALBUMIN 3.9 g/dL (3.2-5.5); ALBUMIN/GLOBULIN RATIO 0.9 (1.0-2.2); BILIRUBIN,TOTAL 0.7 mg/dL (0.2-1.0); CALCIUM 8.8 mg/dL (8.5-10.3); CREATININE 1.3 mg/dL (0.6-1.2); TOTAL PROTEIN 8.1 g/dL (6.7-8.2)
[2020-10-14 12:39] VITALS: BP 101/61
== END 2020-10-14 13:05 | disposition home or self-care (01) ==
LOC: EDUNIT# → ED 08:48
DX: G40.909 Epilepsy, unspecified, not intractable, without status epilepticus (principal); S09.90XA Unspecified injury of head, initial encounter; S00.512A Abrasion of oral cavity, initial encounter; W18.30XA Fall on same level, unspecified, initial encounter; I44.0 Atrioventricular block, first degree; I10 Essential (primary) hypertension; E11.9 Type 2 diabetes mellitus without complications; Z79.84 Long term (current) use of oral hypoglycemic drugs; Z79.82 Long term (current) use of aspirin
CPT/HCPCS: 36415; 70450; 72125; 80053; 83690; 84484; 85025; 85610; 93005; 99285

== ENCOUNTER 2021-04-19 13:23 | Outpatient (CLI) | payer MEDICARE, OTHER ==
[2021-04-19 17:55] LABS: BASOPHILS % (AUTO) 0.3 %; EOSINOPHILS # (AUTO) 0.2 10^3/uL (0.0-0.7); EOSINOPHILS % (AUTO) 3.7 %; HCT - HEMATOCRIT 41.6 % (42.0-52.0); HGB - HEMOGLOBIN 13.1 g/dL (14.0-18.0); LYMPHOCYTES # (AUTO) 1.9 10^3/uL (1.5-3.5); LYMPHOCYTES % (AUTO) 30.1 %; MEAN CORPUSCULAR HEMOGLOBIN 30.5 pg (27.0-31.0); MEAN CORPUSCULAR HGB CONC 31.5 g/dL (32.0-36.0); MEAN PLATELET VOLUME 10.3 fL (7.4-11.4); MONOCYTES # (AUTO) 0.7 10^3/uL (0.0-1.0); MONOCYTES % (AUTO) 10.7 %; NEUTROPHILS # (AUTO) 3.4 10^3/uL (1.5-6.6); PLT - PLATELET COUNT 313 10^3/uL (130-450); RED BLOOD COUNT 4.29 10^6/uL (4.70-6.10); RED CELL DISTRIBUTION WIDTH 14.5 % (12.0-15.0); WHITE BLOOD COUNT 6.2 x10^3/uL (4.8-10.8)
[2021-04-21 14:55] LABS: ALBUMIN 4.3 g/dL (3.2-5.5); ALBUMIN/GLOBULIN RATIO 1.1 (1.0-2.2); ALKALINE PHOSPHATASE 75 IU/L (42-121); ALT ALANINE AMINOTRANSFERASE 31 IU/L (10-60); AST ASPARTATE AMINOTRANSFERASE 23 IU/L (10-42); BILIRUBIN,TOTAL 0.4 mg/dL (0.2-1.0); BUN - BLOOD UREA NITROGEN 27 mg/dL (6-20); CALCIUM 8.9 mg/dL (8.5-10.3); CARBON DIOXIDE - CO2 25 mmol/L (21-32); CHLORIDE 106 mmol/L (101-111); CHOL/HDL RATIO 3.2 (<5.0); CHOLESTEROL 127 mg/dL; CREATININE 1.2 mg/dL (0.6-1.2); GFR - MDRD 59 (>89); GLUCOSE 99 mg/dL (70-100); HDL CHOLESTEROL 40 mg/dL; LDL CHOLESTEROL,CALCULATED 62 mg/dL; LDL/HDL RATIO 1.6 (<3.6); SODIUM 136 mmol/L (135-145); TOTAL PROTEIN 8.3 g/dL (6.7-8.2); TRIGLYCERIDES 127 mg/dL; VLDL CHOLESTEROL 25 mg/dL
[2021-04-21 20:03] LABS: ESTIMATED AVERAGE GLUCOSE 123 mg/dL (70-100); HEMOGLOBIN A1c% 5.9 % (4.27-6.07)
[2021-04-22 13:01] LABS: LEVETIRACETAM (KEPPRA) LEVEL 32.1 mcg/mL
== END 2021-04-19 13:24 | disposition home or self-care (01) ==
LOC: LAB.N 13:23
PROVIDERS: ATTEND Physician Assistant Medical
DX: G40.909 Epilepsy, unspecified, not intractable, without status epilepticus (principal); R42 Dizziness and giddiness; E11.9 Type 2 diabetes mellitus without complications
CPT/HCPCS: 36415; 80053; 80061; 80175; 80177; 80185; 82728; 83036; 83721; 85025

== ENCOUNTER 2021-11-06 18:58 | Inpatient (IN) | payer MEDICARE, OTHER ==
--- NOTE | 2021-11-06 19:53 | ED Physician Documentation ---
History of Present Illness - Stated complaint Stated Complaint: Right leg - Chief complaint Chief Complaint: Trauma Ext - Additonal information Additional information: 75-year-old male presents emergency department for evaluation of right leg pain after ground-level fall this afternoon. Patient is a poor historian secondary to history of previous TBI. He does not think however that he lost consciousness. Since the fall he has been scooting on his butt and has been unable to bear weight in the right leg. Review of Systems Constitutional: denies: Fever, Chills Eyes: reports: Reviewed and negative Ears: reports: Reviewed and negative Nose: reports: Reviewed and negative Throat: reports: Reviewed and negative Cardiac: reports: Reviewed and negative Musculoskeletal: reports: Extremity pain (right leg) PD PAST MEDICAL HISTORY - Past Medical History Past Medical History: Yes Cardiovascular: Hypertension, High cholesterol, [place] Respiratory: None Neuro: Other Endocrine/Autoimmune: Type 2 diabetes GI: Colon polyps : Benign prostate hypertrophy, Indwelling catheter HEENT: None Psych: None Musculoskeletal: None Derm: None - Past Surgical History Past Surgical History: Yes General: Colonoscopy Neuro: Craniotomy - Present Medications Home Medications: Ambulatory Orders Medication Instructions Recorded Confirmed Phenytoin Sodium Extended 300 mg PO DAILY 05/18/13 11/06/21 [Dilantin] Aspirin [Aspirin EC] 81 mg PO DAILY #30 11/09/17 11/06/21 Finasteride 5 mg PO DAILY #30 11/09/17 11/06/21 Levetiracetam [Keppra] 1,000 mg PO BID #60 11/09/17 11/06/21 Lovastatin 40 mg PO QPM #30 11/09/17 11/06/21 Metformin HCl [Fortamet] 1,000 mg PO BIDWM #30 11/09/17 11/06/21 Phenytoin Sodium Extended 400 mg PO QPM #30 11/09/17 11/06/21 Tamsulosin [Flomax] 0.4 mg PO DAILY #30 11/09/17 11/06/21 Topiramate 50 mg PO BID #30 11/09/17 11/06/21 lamoTRIgine [LaMICtal] 25 mg PO BID #30 11/09/17 11/06/21 lamoTRIgine [LaMICtal] 200 mg PO BID #30 11/09/17 11/06/21 glipiZIDE ER [Glucotrol Xl] 2.5 mg PO DAILY 12/19/17 11/06/21 Metoprolol Succinate 12.5 mg PO BID 09/04/18 11/06/21 - Allergies Allergies/Adverse Reactions: Allergies Allergy/AdvReac Type Severity Reaction Status Date / Time No Known Drug Allergies Allergy Verified 11/06/21 19:19 - Social History Does the pt smoke?: No Smoking Status: Never smoker Does the pt drink ETOH?: Yes Does the pt have substance abuse?: No - Immunizations Immunizations are current?: Yes - POLST Patient has POLST: No POLST Status: Full Code PD ED PE EXPANDED - General General: Alert, No acute distress - HEENT HEENT: Atraumatic - Cardiac Cardiac: Regular Rate, Radial strong equal, Pedal strong equal - Respiratory Respiratory: Clear to ausultation sylvia. No: Distress, Labored - Abdomen Abdomen: Normal Bowel sounds. No: Tender to palpation - Extremities Extremities: Right hip (Tenderness in the right hip with any passive range of motion. Leg is rotated externally but not shortened. 2+ femoral pulse. 1+ DP pulse distally), Other Results - Vitals Vitals: Vital Signs - 24 hr 11/06/21 19:08 Temperature 36.3 C L Heart Rate 88 Respiratory 18 Rate Blood Pressure 132/86 H O2 Saturation 96 Oxygen O2 Source [With Activity] Room air O2 Source Room air - Labs Labs: Laboratory Tests 11/06/21 21:12 Urine Color DARK YELLOW Urine Clarity CLEAR Urine pH 6.0 Ur Specific [place] 1.020 Urine Protein TRACE Urine Glucose (UA) 100 H Urine Ketones NEGATIVE Urine Occult Blood NEGATIVE Urine Nitrite NEGATIVE Urine Bilirubin NEGATIVE Urine Urobilinogen 0.2 (NORMAL) Ur Leukocyte Esterase NEGATIVE Ur Microscopic Review NOT INDICATED Urine Culture Comments NOT INDICATED - Rads (name of study) hip/pelvis Radiology: Final report received (Mildly impacted right femoral neck fracture.) right knee Radiology: Final report received (No fracture or dislocation. Small joint effusion) PD MEDICAL DECISION MAKING - ED course Complexity details: reviewed results, re-evaluated patient, considered differential, d/w patient, d/w family ED course: 75-year-old male presents emergency department for evaluation of acute right leg pain after ground-level fall this morning. Has been unable to bear weight since. He presents with an externally rotated leg though no shortening. Minimal movement produced significant pain. X-ray of the hip and pelvis does reveal a mildly impacted femoral neck fracture. Patient was briefly discussed with Dr. Aiken who agrees to take the patient to the OR tomorrow. Patient was presented to Dr. Lim for evaluation and management of his medical conditions otherwise. Departure - Departure Disposition: 66 [facility] DC/Xfer Clinical Impression: History of traumatic brain injury, Seizure disorder Closed right hip fracture Qualifiers: Encounter type: initial encounter Qualified Code(s): S72.001A - Fracture of u nspecified part of neck of right femur, initial encounter for closed fracture
[2021-11-06] MEDS ORDERED: HYDROcod/ACETAM 5/325 MG TABLET PO STA (19:56)
--- NOTE | 2021-11-06 21:13 | XRAY Report ---
PROCEDURE: Hip w/Pelvis 2-3V RT INDICATIONS: pain; GLF TECHNIQUE: AP pelvis with lateral view of the right hip. COMPARISON: None. FINDINGS: Bones: There is a mildly impacted fracture of the right femoral neck. Pelvic ring appears intact. N o suspicious bony lesions. Soft tissues: The visualized bowel gas pattern is normal. No suspicious soft tissue calcifications. IMPRESSION: 1. Mildly impacted right femoral neck fracture. Reviewed by: Jam Jaquez MD on 11/06/2021 9:12 PM PST Approved by: Jam Jaquez MD on 11/06/2021 9:12 PM PST Station ID: [id number]
--- NOTE | 2021-11-06 21:15 | XRAY Report ---
PROCEDURE: Knee 2 View RT INDICATIONS: pain; GLF TECHNIQUE: 2 views of the right knee were acquired. COMPARISON: None. FINDINGS: Bones: No fractures or dislocations. There is mild joint space narrowing in the medial compartment. No suspicious bony lesions. Soft tissues: There is a small joint effusion. No suspicious soft tissue calcifications. IMPRESSION: 1. No fracture or dislocation. 2. Small joint effusion. Reviewed by: Jam Jaquez MD on 11/06/2021 9:14 PM PST Approved by: Jam Jaquez MD on 11/06/2021 9:14 PM PST Station ID: [id number]
[2021-11-06] MEDS ORDERED: MORPHINE 2 MG/ML CARPUJECT IVP PRN (21:18)
[2021-11-06 21:19] LABS: BILIRUBIN,URINE NEGATIVE (NEGATIVE); GLUCOSE, URINE (UA) 100 mg/dL (NEGATIVE); KETONES,URINE (UA) NEGATIVE (NEGATIVE); LEUKOCYTE ESTERASE, URINE NEGATIVE (NEGATIVE); NITRITE,URINE NEGATIVE (NEGATIVE); OCCULT BLOOD,URINE NEGATIVE (NEGATIVE); PROTEIN,URINE TRACE mg/dL (NEGATIVE); UROBILINOGEN,URINE 0.2 (NORMAL) E.U./dL (NORMAL)
[2021-11-06 21:21] LABS: CLARITY,URINE CLEAR (CLEAR)
[2021-11-06 21:23] LABS: BASOPHILS % (AUTO) 0.2 %; EOSINOPHILS % (AUTO) 0.2 %; HCT - HEMATOCRIT 44.6 % (42.0-52.0); HGB - HEMOGLOBIN 14.3 g/dL (14.0-18.0); LYMPHOCYTES # (AUTO) 0.8 10^3/uL (1.5-3.5); LYMPHOCYTES % (AUTO) 8.6 %; MEAN CORPUSCULAR HEMOGLOBIN 29.9 pg (27.0-31.0); MEAN CORPUSCULAR HGB CONC 32.1 g/dL (32.0-36.0); MEAN CORPUSCULAR VOLUME 93.1 fL (80.0-94.0); MEAN PLATELET VOLUME 9.3 fL (7.4-11.4); MONOCYTES # (AUTO) 0.6 10^3/uL (0.0-1.0); MONOCYTES % (AUTO) 5.9 %; NEUTROPHILS % (AUTO) 84.9 %; PLT - PLATELET COUNT 224 10^3/uL (130-450); RED BLOOD COUNT 4.79 10^6/uL (4.70-6.10); RED CELL DISTRIBUTION WIDTH 13.8 % (12.0-15.0); WHITE BLOOD COUNT 9.5 x10^3/uL (4.8-10.8)
--- NOTE | 2021-11-06 21:26 | XRAY Report ---
PROCEDURE: Femur 2V RT INDICATIONS: pain glf TECHNIQUE: 4 views of the femur were acquired. COMPARISON: Concurrent studies of the right hip and knee. FINDINGS: Bones: There is a mildly impacted fracture of the base of the right femoral neck. No dislocations. Th e distal femur appears intact. Soft tissues: No suspicious soft tissue calcifications or masses. IMPRESSION: 1. Mildly impacted right femoral neck fracture. Reviewed by: Jam Jaquez MD on 11/06/2021 9:25 PM PST Approved by: Jam Jaquez MD on 11/06/2021 9:25 PM PST Station ID: [id number]
--- NOTE | 2021-11-06 21:30 | HISTORY & PHYSICAL EXAMINATION ---
Chief Complaint - Chief Complaint Chief Complaint: Hip pain History of Present Illness - Admitted From Admitted From:: Home - History Obtained From Records Reviewed: Yes History obtained from: Patient, ER Provider, EMR, Family Exam Limitations: Patient is a poor historia secondary to TBI. - History of Present Illness HPI Comment/Other: Patient is 75-year-old male with a past medical history significant for seizure disorder, type 2 diabetes mellitus, coronary artery disease who presents today after suffering a fall and complaining of right hip pain. Most of the history is obtained from the patient's family as the patient is a poor historian. The patient's [id number] who was with him when he fell, reported that he was just standing there when he fell and slow motion onto his right side. He reportedly felt fine prior to the fall and had no complaints. The patient states his pain is located in the right hip he has had decreased range of motion. He denies any chest pain or dyspnea. I asked the patient's son and [id number]-psi if he ever complains of chest pain and they reported that he never complains of any pain in general. They stated he did have episodes of dizziness in the past and his home at [facility] were cut back and he had been doing well since then. He did not hit his head when he fell today. He is a diabetic and they do check his blood glucose when he appears confused but it was not checked today. The patient was ambulating independently in the past but now uses a walker more frequently. In the emergency department, imaging revealed a right hip fracture. Medicine was then consulted for admission. The patient has a POLST form which states he is a DNR with limited interv entions. I discussed with him and he confirms he is a DNR. History - Past Medical History Cardiovascular: reports: Hypertension, High cholesterol, Coronary artery disease Respiratory: reports: None Neuro: reports: Other Endocrine/Autoimmune: reports: Type 2 diabetes GI: reports: Colon polyps : reports: Benign prostate hypertrophy, Indwelling catheter HEENT: reports: None Psych: reports: None Musculoskeletal: reports: None Derm: reports: None MRSA Hx?: No - Past Surgical History General: reports: Colonoscopy Neuro: reports: Craniotomy - Family & Social History Family History: Mother: (Father had CHF), Cancer (Bone cancer), Father: , CAD Living arrangement: At home Living Situation: With family Social History Notes: He was born in [place]. Served 2 years in [employer]. 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 He was never a smoker and only tried it once and no hx of alcohol abuse. He is currently living in [place] with son (Rj) and Daughter in law. - Substance History Use: Uses substance without health or social issues: NONE - POLST Patient has POLST: Yes POLST Status: Limited Interventions Meds/Allgy - Home Medications Home Medications: Ambulatory Orders Medication Instructions Recorded Confirmed Phenytoin Sodium Extended 300 mg PO DAILY 05/18/13 11/06/21 [Dilantin] Aspirin [Aspirin EC] 81 mg PO DAILY #30 11/09/17 11/06/21 Finasteride 5 mg PO DAILY #30 11/09/17 11/06/21 Levetiracetam [Keppra] 1,000 mg PO BID #60 11/09/17 11/06/21 Lovastatin 40 mg PO QPM #30 11/09/17 11/06/21 Metformin HCl [Fortamet] 1,000 mg PO BIDWM #30 11/09/17 11/06/21 Phenytoin Sodium Extended 400 mg PO QPM #30 11/09/17 11/06/21 Tamsulosin [Flomax] 0.4 mg PO DAILY #30 11/09/17 11/06/21 Topiramate 50 mg PO BID #30 11/09/17 11/06/21 lamoTRIgine [LaMICtal] 25 mg PO BID #30 11/09/17 11/06/21 lamoTRIgine [LaMICtal] 200 mg PO BID #30 11/09/17 11/06/21 glipiZIDE ER [Glucotrol Xl] 2.5 mg PO DAILY 12/19/17 11/06/21 Metoprolol Succinate 12.5 mg PO BID 09/04/18 11/06/21 - Allergies Allergies/Adverse Reactions: Allergies Allergy/AdvReac Type Severity Reaction Status Date / Time No Known Drug Allergies Allergy Verified 11/06/21 19:19 Review of Systems - Constitutional Constitutional: denies: Fever, Chills - Cardiovascular Cariovascular: denies: Chest pain, Edema, Lightheadedness, Exertional dyspnea, Decr. exercise tolerance - Respiratory Respiratory: denies: SOB at rest, SOB with exertion - Gastrointestinal Gastrointestinal: denies: Abdominal pain, Nausea, Vomiting - Musculoskeletal Musculoskeletal: reports: Limited range of motion, Joint pain - Neurological Neurological: reports: Focal weakness. denies: Dizziness - All Other Systems All Other Systems: reports: Other (Review of systems is limited due to his TBI.) Prior Level of Functionality: He ambulates with a walker at baseline. Exam - Vital Signs Reviewed Vital Signs: Yes Vital Signs: Vital Signs x48h Temp Pulse Resp BP Pulse Ox 11/06/21 19:08 36.3 C L 88 18 132/86 H 96 - Physical Exam General Appearance: positive: No acute distress, Alert Eyes Bilateral: positive: Normal inspection, Conjunctivae nml ENT: positive: Other (Poor dentition.) Respiratory: positive: No respiratory distress. negative: Wheezes, Rales Cardiovascular: positive: Regular rate & rhythm, No murmur. negative: Tachycardia Peripheral Pulses: positive: 2+ (Right dorsalis pedis.) Abdomen: positive: Non-tender, No distention. negative: Tenderness Skin: positive: Warm, Dry Extremities: positive: No pedal edema, Other (Right lower extremity is externally rotated. No tenderness, erythema.) Neurologic/Psychiatric: positive: Disoriented to time (Knows month but not the year.). negative: Disoriented to person, Disoriented to place Conclusion/Plan - Problem List (1) Closed right hip fracture Conclusion/Plan: He has a closed right hip fracture fracture. He will be admitted for surgical intervention with orthopedic surgery tomorrow. He will be made n[facility] at [facility]. Pain control with morphine IV as needed. He is on Lovenox for DVT prophylaxis. PT and OT have been consulted for postop evaluation. We have also consulted social work to assist with disposition. Appreciate orthopedic surgery input. Qualifiers: Encounter type: initial encounter Qualified Code(s): S72.001A - Fracture of unspecified part of neck of right femur, initial encounter for closed fracture (2) Pre-op evaluation Conclusion/Plan: He has a history of coronary artery disease but denies chest pain/angina does not appear to be in heart failure. His [place] perioperative risk is 1.4% for myocardial infarction or cardiac arrest. We will obtain a baseline EKG and if this does not reveal any significant abnormalities then no further work-up will be necessary prior to surgical intervention. (3) History of coronary artery disease Conclusion/Plan: This appears to be stable. We will continue his home aspirin, statin, beta- viral. We will check a preop EKG. 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 We will continue his home antiepileptics and will give his evening dose now. (6) Type 2 diabetes mellitus Conclusion/Plan: He is on glipizide and Metformin at home. We will start him on Lantus this evening and he will be made n.p.o. at midnight for surgical intervention tomorrow. We will start him on a carb controlled diet postoperatively. Continue blood glucose monitoring and sliding scale. 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 This is unchanged compared to the prior EKG. The only difference is now there is mo tion artifact. Core Measures - Anticipated LOS I expect patient to be DC'd or transferred within 96 hours.: Yes - Issues Hospital Issues and Management Plan: 75-year-old male presents with right leg pain after a fall found to have a hip fracture. He will be admitted for pain control and surgical intervention. - DVT/VTE - Prophylaxis VTE/DVT Device ordered at admit?: Yes VTE/DVT Prophylaxis med ordered at admit?: Yes
[2021-11-06 21:31] LABS: INR 1.1 (0.8-1.2); PT - PROTHROMBIN TIME 11.7 secs (9.9-12.6)
[2021-11-06 21:37] LABS: ALBUMIN 4.4 g/dL (3.2-5.5); BILIRUBIN,TOTAL 0.5 mg/dL (0.2-1.0); CREATININE 1.2 mg/dL (0.6-1.2); POTASSIUM 5.1 mmol/L (3.5-5.0); TOTAL PROTEIN 8.7 g/dL (6.7-8.2)
[2021-11-06 21:38] LABS: PARTIAL THROMBOPLASTIN TIME 25.3 secs (24.9-33.3)
[2021-11-06 21:49] LABS: B. PARAPERTUSSIS- RESP PCR PAN NOT DETECTED; B. PERTUSSIS- RESP PCR PANEL NOT DETECTED; C. PNEUMONIAE- RESP PCR PANEL NOT DETECTED; CORONAVIRUS 229E-RESP PCR NOT DETECTED; CORONAVIRUS HKU1-RESP PCR NOT DETECTED; CORONAVIRUS NL63-RESP PCR NOT DETECTED; CORONAVIRUS OC43-RESP PCR NOT DETECTED; HUMAN METAPNEUMOVIRUS NOT DETECTED; INFLUENZA A- RESP PCR PANEL NOT DETECTED; INFLUENZA B - RESP PCR PANEL NOT DETECTED; M. PNEUMONIAE- RESP PCR PANEL NOT DETECTED; PARAINFLUENZA VIRUS 1 NOT DETECTED; PARAINFLUENZA VIRUS 2 NOT DETECTED; PARAINFLUENZA VIRUS 3 NOT DETECTED; PARAINFLUENZA VIRUS 4 NOT DETECTED; RHINOVIRUS/ENTEROVIRUS NOT DETECTED; RSV- RESP PCR PANEL NOT DETECTED; SARS-CoV-2 -RESP PCR PANEL NOT DETECTED
[2021-11-06] MEDS: lamoTRIgine 25 MG TABLET PO SCH (23:36)
[2021-11-06] MEDS: lamoTRIgine 100 MG TABLET PO SCH (23:36)
[2021-11-06] MEDS: METOPROLOL SUCCINATE 25 MG TABLET PO SCH (23:38)
[2021-11-06] MEDS: levETIRAcetam 250 MG TABLET PO SCH (23:39)
[2021-11-06] MEDS: TOPIRAMATE 25 MG TABLET PO SCH (23:46)
[2021-11-06] MEDS: PHENYTOIN ER 100 MG CAPSULE PO SCH (23:47)
[2021-11-06] MEDS: ATORVASTATIN 10 MG TABLET PO SCH (23:47)
[2021-11-06] MEDS: INSULIN GLARGINE 300 UNIT/3 ML PEN SUBQ SCH (23:48)
[2021-11-06] MEDS: INSULIN REGULAR HUMAN 300 UNIT/3 ML VIAL SUBQ SCH (23:49)
--- NOTE | 2021-11-07 00:07 | XRAY Report ---
PROCEDURE: Chest 1 View X-Ray INDICATIONS: Pre-op. TECHNIQUE: One view of the chest was acquired. COMPARISON: 04/09/2018, 09/03/2018. FINDINGS: Surgical changes and devices: None. Lungs and pleura: No pleural effusions or pneumothorax. Lungs are clear. Mediastinum: Mediastinal contours appear normal. Heart size is normal. Bones and chest wall: No suspicious bony lesions. Overlying soft tissues appear unremarkable. IMPRESSION: 1. No acute cardiopulmonary disease. Reviewed by: Jam Jaquez MD on 11/07/2021 12:06 AM [facility] Approved by: Jam Jaquez MD on 11/07/2021 12:06 AM [facility] Station ID: [id number]
[2021-11-07] MEDS: SODIUM CHLORIDE FLUSH 0.9% 10 ML SYRINGE IVP SCH ×3 (00:08→22:14)
[2021-11-07] MEDS: oxyCODONE 5 MG TABLET PO PRN (03:58)
[2021-11-07 06:17] LABS: BASOPHILS % (AUTO) 0.3 %; EOSINOPHILS # (AUTO) 0.2 10^3/uL (0.0-0.7); EOSINOPHILS % (AUTO) 3.8 %; HCT - HEMATOCRIT 39.8 % (42.0-52.0); LYMPHOCYTES # (AUTO) 0.9 10^3/uL (1.5-3.5); LYMPHOCYTES % (AUTO) 14.6 %; MEAN CORPUSCULAR HEMOGLOBIN 29.8 pg (27.0-31.0); MEAN CORPUSCULAR HGB CONC 32.7 g/dL (32.0-36.0); MEAN CORPUSCULAR VOLUME 91.3 fL (80.0-94.0); MEAN PLATELET VOLUME 9.9 fL (7.4-11.4); MONOCYTES # (AUTO) 0.4 10^3/uL (0.0-1.0); MONOCYTES % (AUTO) 5.9 %; NEUTROPHILS # (AUTO) 4.6 10^3/uL (1.5-6.6); NEUTROPHILS % (AUTO) 75.1 %; PLT - PLATELET COUNT 217 10^3/uL (130-450); RED BLOOD COUNT 4.36 10^6/uL (4.70-6.10); RED CELL DISTRIBUTION WIDTH 13.5 % (12.0-15.0); WHITE BLOOD COUNT 6.1 x10^3/uL (4.8-10.8)
[2021-11-07 06:29] LABS: CALCIUM 8.6 mg/dL (8.5-10.3); POTASSIUM 4.4 mmol/L (3.5-5.0)
[2021-11-07] MEDS: INSULIN REGULAR HUMAN 300 UNIT/3 ML VIAL SUBQ SCH ×3 (06:46→22:15)
[2021-11-07] MEDS ORDERED: ENOXAPARIN 40 MG/0.4 ML SYRINGE SUBQ SCH (09:00)
[2021-11-07] MEDS: lamoTRIgine 100 MG TABLET PO SCH ×2 (09:02→22:15)
[2021-11-07] MEDS: lamoTRIgine 25 MG TABLET PO SCH ×2 (09:03→22:16)
[2021-11-07] MEDS: levETIRAcetam 250 MG TABLET PO SCH ×2 (09:03→22:15)
[2021-11-07] MEDS: METOPROLOL SUCCINATE 25 MG TABLET PO SCH ×2 (09:03→22:16)
[2021-11-07] MEDS: ACETAMINOPHEN 325 MG TABLET PO PRN (09:05)
[2021-11-07] MEDS: PHENYTOIN ER 100 MG CAPSULE PO SCH ×2 (09:05→22:18)
[2021-11-07] MEDS: TOPIRAMATE 25 MG TABLET PO SCH ×2 (09:05→22:15)
--- NOTE | 2021-11-07 09:43 | ANESTHESIA ---
Pre-Anesthesia VS, & Labs - Diagnosis closed right hip fracture - Procedure Right hip hemiprosthesis Vital Signs: Temp Pulse Resp BP Pulse Ox 36.8 C 75 16 122/57 L 96 11/07/21 08:49 11/07/21 08:49 11/07/21 08:49 11/07/21 08:49 11/07/21 08:49 Height: 6 ft 2 in Weight (kg): 89.3 kg Body Mass Index: 25.2 BMI Classification: Overweight - NPO >8 hours - Lab Results Current Lab Results: Laboratory Tests 11/07/21 06:29: POC Whole Bld Glucose 85 11/07/21 05:05: Sodium 133 L, Potassium 4.4, Chloride 102, Carbon Dioxide 22, Anion Gap 9.0, BUN 24 H, Creatinine 1.0, Estimated GFR (MDRD) 73 L, Glucose 97, Calcium 8.6 11/07/21 05:05: WBC 6.1, RBC 4.36 L, Hgb 13.0 L, Hct 39.8 L, MCV 91.3, MCH 29.8, MCHC 32.7, RDW 13.5, Plt Count 217, MPV 9.9, Neut # (Auto) 4.6, Lymph # (Auto) 0.9 L, [place] # (Auto) 0.4, Eos # (Auto) 0.2, Baso # (Auto) 0.0, Absolute Nucleated RBC 0.00, Nucleated RBC % 0.0 11/06/21 23:38: POC Whole Bld Glucose 136 H 11/06/21 21:20: PT 11.7, INR 1.1, APTT 25.3 11/06/21 21:20: WBC 9.5, RBC 4.79, Hgb 14.3, Hct 44.6, MCV 93.1, MCH 29.9, MCHC 32.1, RDW 13.8, Plt Count 224, MPV 9.3, Neut # (Auto) 8.0 H, Lymph # (Auto) 0.8 L, [place] # (Auto) 0.6, Eos # (Auto) 0.0, Baso # (Auto) 0.0, Absolute Nucleated RBC 0.00, Nucleated RBC % 0.0 11/06/21 21:20: Sodium 135, Potassium 5.1 H, Chloride 102, Carbon Dioxide 23, Anion Gap 10.0, BUN 29 H, Creatinine 1.2, Estimated GFR (MDRD) 59 L, Glucose 212 H, Calcium 9.0, Total Bilirubin 0.5, AST 35, ALT 39, Alkaline Phosphatase 91, Total Protein 8.7 H, Albumin 4.4, Globulin 4.3 H, Albumin/Globulin Ratio 1.0, Lipase 38 Lab results reviewed: Yes Fish Bones: 11/07/21 05:05 11/07/21 05:05 Home Medications and Allergies Active Medications Acetaminophen (Acetaminophen 325 Mg Tablet) 650 mg PO Q4HR PRN PRN Reason: Pain 1 to 4 Last Admin: 11/07/21 09:05 Dose: 650 mg Documented by: Atorvastatin Calcium (Atorvastatin 10 Mg Tablet) 20 mg PO QPM [facility] Last Admin: 11/06/21 23:47 Dose: 20 mg Documented by: Insulin Glargine (Insulin Glargine 300 Unit/3 Ml Pen) 5 unit SUBQ QPM [facility] Last Admin: 11/06/21 23:48 Dose: 5 unit Documented by: Insulin Human Regular (Insulin Regular Human 300 Unit/3 Ml Vial) 2 - 10 unit SUBQ Q6HR [facility]; Protocol Last Admin: 11/07/21 06:46 Dose: Not Given Documented by: Lamotrigine (Lamotrigine 25 Mg Tablet) 25 mg PO BID [facility] Last Admin: 11/07/21 09:03 Dose: 25 mg Documented by: Lamotrigine (Lamotrigine 100 Mg Tablet) 200 mg PO BID [facility] Last Admin: 11/07/21 09:02 Dose: 200 mg Documented by: Levetiracetam (Levetiracetam 250 Mg Tablet) 1,000 mg PO BID [facility] Last Admin: 11/07/21 09:03 Dose: 1,000 mg Documented by: Metoprolol Succinate (Metoprolol Succinate 25 Mg Tablet) 12.5 mg PO BID [facility] Last Admin: 11/07/21 09:03 Dose: 12.5 mg Documented by: Morphine Sulfate (Morphine 2 Mg/Ml Carpuject) 2 mg IVP Q2HR PRN PRN Reason: Pain 8 to 10 Ondansetron HCl (Ondansetron Odt 4 Mg Tablet) 4 mg TL Q6HR PRN PRN Reason: Nausea / Vomiting Ondansetron HCl (Ondansetron 4 Mg/2 Ml Vial) 4 mg IVP Q6HR PRN PRN Reason: Nausea / Vomiting Oxycodone HCl (Oxycodone 5 Mg Tablet) 10 mg PO Q4HR PRN PRN Reason: Pain 8 to 10 Last Admin: 11/07/21 03:58 Dose: 10 mg Documented by: Phenytoin Sodium (Phenytoin Er 100 Mg Capsule) 300 mg PO DAILY [facility] Last Admin: 11/07/21 09:05 Dose: 300 mg Documented by: Phenytoin Sodium (Phenytoin Er 100 Mg Capsule) 400 mg PO QPM [facility] Last Admin: 11/06/21 23:47 Dose: 400 mg Documented by: Sodium Chloride (Sodium Chloride Flush 0.9% 10 Ml Syringe) 10 ml IVP PRN PRN PRN Reason: NEEDED PER PROVIDER ORDERS Sodium Chloride (Sodium Chloride Flush 0.9% 10 Ml Syringe) 10 ml IVP 0100,0900,1700 [facility] Last Admin: 11/07/21 09:05 Dose: 10 ml Documented by: Topiramate (Topiramate 25 Mg Tablet) 50 mg PO BID [facility] Last Admin: 11/07/21 09:05 Dose: 50 mg Documented by: Phenytoin Sodium Extended [Dilantin] 300 mg PO DAILY 05/18/13 glipiZIDE ER [Glucotrol Xl] 2.5 mg PO DAILY 12/19/17 Metoprolol Succinate 12.5 mg PO BID 09/04/18 Allergies/Adverse Reactions: Allergies Allergy/AdvReac Type Severity Reaction Status Date / Time No Known Drug Allergies Allergy Verified 11/06/21 19:19 Anes History & Medical History - Anesthetic History Anesthesia Complications: reports: No previous complications Family history of Anesthesia Complications: Denies Family history of Malignant Hyperthermia: Denies - Medical History Cardiovascular: reports: Hypertension, High cholesterol, Coronary artery disease Pulmonary: reports: None Gastrointestinal: reports: Colon polyps Urinary: reports: Benign prostate hypertrophy, Indwelling catheter Neuro: reports: Seizure disorder (hx of craniotomy), Other (history of TBI/crainotomy for tumor resection) Musculoskeletal: reports: None Endocrine/Autoimmune: reports: Type 2 diabetes Blood Disorders: reports: None Skin: reports: None Smoking Status: Former smoker - Surgical History General: reports: Colonoscopy Neurologic: reports: Craniotomy Exam General: Cooperative, No acute distress Dental: Loose/Frag, Poor dentition Mouth Openin Fingerbreadth Neck Mobility: Normal Mallampati classification: II Respiratory: Lungs clear, Normal breath sounds, No respiratory distress, No accessory muscle use Cardiovascular: Regular rate, Normal S1, Normal S2, No murmurs Plan Anesthesia Type: General, Spinal, Fascia Iliaca Block (VICENTE ROY) Regional Block: Per Surgeon's request for Post Op pain control Consent for Procedure(s) Verified and Reviewed: Yes Code Status: Attempt Resuscitation ASA classification: 3-Severe systemic disease Is this case an emergency?: No
[2021-11-07] MEDS ORDERED: ROCURONIUM 50 MG/5 ML VIAL ONE (11:14)
[2021-11-07] MEDS ORDERED: DEXAMETHASONE 4 MG/ML VIAL ONE (11:14)
[2021-11-07] MEDS ORDERED: LIDOCAINE-MPF 2% 5 ML VIAL ONE (11:14)
[2021-11-07] MEDS ORDERED: PROPOFOL 200 MG/20 ML VIAL IVP ONE (11:14)
[2021-11-07] MEDS ORDERED: ONDANSETRON 4 MG/2 ML VIAL ONE (11:14)
[2021-11-07] MEDS ORDERED: ROPIVACAINE 0.5% PF 20 ML AMPULE ONE (11:14)
[2021-11-07] MEDS ORDERED: fentaNYL 100 MCG/2 ML VIAL ONE ×2 (11:15→15:22)
[2021-11-07] MEDS ORDERED: BUPIVACAINE 0.5% PF 10 ML VIAL ONE ×2 (11:17)
[2021-11-07] MEDS ORDERED: LIDOCAINE MPF 2%-EPI 1:200000 20 ML VIAL ONE (11:17)
[2021-11-07] MEDS ORDERED: VANCOMYCIN 1 GM VIAL ONE (11:18)
[2021-11-07] MEDS ORDERED: DEXMEDETOMIDINE 200 MCG/2 ML VIAL ONE (11:20)
[2021-11-07] MEDS ORDERED: SUGAMMADEX 200 MG/2 ML VIAL IVP ONE (15:22)
--- NOTE | 2021-11-07 15:34 | PHARMACY PROGRESS NOTE ---
- Best Possible Medication History Admit Date and Time: 11/06/212117 Processed by: Nursing Medication History completed: Yes Medication list confirmed by nursing As the person ultimately responsible for medication therapy, providers are able to order a medication from an existing home medication list in [facility] via the "Reconcile Routine" prior to Confirmation of that medication by operator command support systems. Such practice is discouraged except when the physician, in their clinical judgment, deems that a medical need exists for a medication without regard to previous use.
--- NOTE | 2021-11-07 16:07 | CONSULTATION NOTE ---
Referring Provider Name of Referring Provider:: Dr. Lim Consult Date: 11/07/21 Chief Complaint - Chief Complaint Chief Complaint: Pain right hip History of Present Illness - History Obtained From Records Reviewed: Yes History obtained from: Son, patient, medical records Exam Limitations: Patient has cognitive deficit - History of Present Illness HPI Comment/Other: This is a 75-year-old man who was standing near his mcszsshp-vo-ics when he fell slowly and hit the floor at home yesterday. This was a witnessed fall. There was not associated chest pain, shortness of breath, syncope or loss of consciousness. He was unable to bear weight on right leg and had pain about the right hip and upper thigh. He is ambulatory, mostly indoor but also occasionally outdoor. He does have multiple medical problems including his seizure disorder which apparently developed after removal of a malignant brain tumor several years ago. He has been on multiple anticonvulsants including Dilantin. He also has a history of diabetes and heart disease. He is relatively comfortable lying in bed as long as his right leg is not moved.Prior to injury, he did use a walker occasionally but did not have his walker with him at the time of fall History - Past Medical History Cardiovascular: reports: Hypertension, High cholesterol, Coronary artery disease Respiratory: reports: None Neuro: reports: Seizure disorder (hx of craniotomy), Other (history of TBI/crainotomy for tumor resection) Endocrine/Autoimmune: reports: Type 2 diabetes GI: reports: Colon polyps : reports: Benign prostate hypertrophy, Indwelling catheter HEENT: reports: None Psych: reports: None Musculoskeletal: reports: None Derm: reports: None MRSA Hx?: No - Past Surgical History General: reports: Colonoscopy Neuro: reports: Craniotomy - Family & Social History Family History: Mother: (Father had CHF), Cancer (Bone cancer), Father: , CAD Living arrangement: At home Living Situation: With family Social History Notes: He was born in [place]. Served 2 years in [employer]. 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 He was never a smoker and only tried it once and no hx of alcohol abuse. He is currently living in [place] with son (Rj) and Daughter in law. - Substance History Use: Uses substance without health or social issues: NONE - POLST Patient has POLST: Yes POLST Status: Limited Interventions Meds/Allgy - Home Medications Home Medications: Ambulatory Orders Medication Instructions Recorded Confirmed Phenytoin Sodium Extended 300 mg PO DAILY 05/18/13 11/06/21 [Dilantin] Aspirin [Aspirin EC] 81 mg PO DAILY #30 11/09/17 11/06/21 Finasteride 5 mg PO DAILY #30 11/09/17 11/06/21 Levetiracetam [Keppra] 1,000 mg PO BID #60 11/09/17 11/06/21 Lovastatin 40 mg PO QPM #30 11/09/17 11/06/21 Metformin HCl [Fortamet] 1,000 mg PO BIDWM #30 11/09/17 11/06/21 Phenytoin Sodium Extended 400 mg PO QPM #30 11/09/17 11/06/21 Tamsulosin [Flomax] 0.4 mg PO DAILY #30 11/09/17 11/06/21 Topiramate 50 mg PO BID #30 11/09/17 11/06/21 lamoTRIgine [LaMICtal] 25 mg PO BID #30 11/09/17 11/06/21 lamoTRIgine [LaMICtal] 200 mg PO BID #30 11/09/17 11/06/21 glipiZIDE ER [Glucotrol Xl] 2.5 mg PO DAILY 12/19/17 11/06/21 Metoprolol Succinate 12.5 mg PO BID 09/04/18 11/06/21 - Allergies Allergies/Adverse Reactions: Allergies Allergy/AdvReac Type Severity Reaction Status Date / Time No Known Drug Allergies Allergy Verified 11/06/21 19:19 Exam - Vital Signs Vital Signs: Vital Signs x48h Temp Pulse Resp BP Pulse Ox 11/07/21 08:49 36.8 C 75 16 122/57 L 96 - Physical Exam General Appearance: positive: No acute distress Cardiovascular: positive: Regular rate & rhythm Peripheral Pulses: positive: 2+ Abdomen: positive: Non-tender Skin: positive: Color nml Extremities: negative: Other (Pain passive movement right hip, shortening and external rotation deformity right leg) Neurologic/Psychiatric: positive: Oriented x3, Motor nml, Sensation nml. negative: Other Conclusion and Plan - Lab Results Laboratory Results 11/07/21 11:38: POC Whole Bld Glucose 102 H 11/07/21 06:29: POC Whole Bld Glucose 85 11/07/21 05:05: Sodium 133 L, Potassium 4.4, Chloride 102, Carbon Dioxide 22, Anion Gap 9.0, BUN 24 H, Creatinine 1.0, Estimated GFR (MDRD) 73 L, Glucose 97, Calcium 8.6 11/07/21 05:05: WBC 6.1, RBC 4.36 L, Hgb 13.0 L, Hct 39.8 L, MCV 91.3, MCH 29.8, MCHC 32.7, RDW 13.5, Plt Count 217, MPV 9.9, Neut # (Auto) 4.6, Lymph # (Auto) 0.9 L, [place] # (Auto) 0.4, Eos # (Auto) 0.2, Baso # (Auto) 0.0, Absolute Nucleat ed RBC 0.00, Nucleated RBC % 0.0 11/06/21 23:38: POC Whole Bld Glucose 136 H 11/06/21 21:20: PT 11.7, INR 1.1, APTT 25.3 11/06/21 21:20: WBC 9.5, RBC 4.79, Hgb 14.3, Hct 44.6, MCV 93.1, MCH 29.9, MCHC 32.1, RDW 13.8, Plt Count 224, MPV 9.3, Neut # (Auto) 8.0 H, Lymph # (Auto) 0.8 L, [place] # (Auto) 0.6, Eos # (Auto) 0.0, Baso # (Auto) 0.0, Absolute Nucleated RBC 0.00, Nucleated RBC % 0.0 11/06/21 21:20: Sodium 135, Potassium 5.1 H, Chloride 102, Carbon Dioxide 23, Anion Gap 10.0, BUN 29 H, Creatinine 1.2, Estimated GFR (MDRD) 59 L, Glucose 212 H, Calcium 9.0, Total Bilirubin 0.5, AST 35, ALT 39, Alkaline Phosphatase 91, Total Protein 8.7 H, Albumin 4.4, Globulin 4.3 H, Albumin/Globulin Ratio 1.0, Lipase 38 11/06/21 21:12: Urine Color DARK YELLOW, Urine Clarity CLEAR, Urine pH 6.0, Ur Specific [place] 1.020, Urine Protein TRACE, Urine Glucose (UA) 100 H, Urine Ketones NEGATIVE, Urine Occult Blood NEGATIVE, Urine Nitrite NEGATIVE, Urine Bilirubin NEGATIVE, Urine Urobilinogen 0.2 (NORMAL), Ur Leukocyte Esterase NEGATIVE, Ur Microscopic Review NOT INDICATED, Urine Culture Comments NOT INDICATED 11/06/21 20:35: Nasal Adenovirus (PCR) NOT DETECTED, Nasal B. parapertussis DNA (PCR) NOT DETECTED, Nasal Coronavir 229E PCR NOT DETECTED, Nasal Coronavir HKU1 PCR NOT DETECTED, Nasal Coronavir NL63 PCR NOT DETECTED, Nasal Coronavir OC43 PCR NOT DETECTED, Nasal Enterovir/Rhinovir PCR NOT DETECTED, Nasal Influenza B PCR NOT DETECTED, Nasal Influenza A PCR NOT DETECTED, Nasal Parainfluen 1 PCR NOT DETECTED, Nasal Parainfluen 2 PCR NOT DETECTED, Nasal Parainfluen 3 PCR NOT DETECTED, Nasal Parainfluen 4 PCR NOT DETECTED, Nasal RSV (PCR) NOT DETECTED, Nasal B.pertussis DNA PCR NOT DETECTED, Nasal C.pneumoniae (PCR) NOT DETECTED, Akhil Human Metapneumo PCR NOT DETECTED, Nasal M.pneumoniae (PCR) NOT DETECTED, Nasal SARS-CoV-2 (PCR) NOT DETECTED - Diagnostic Imaging Results Diagnostic Imaging Results: negative: Read independently (Displaced femoral neck fracture right hip, no significant arthritis to right hip joint. Femur intact) - Diagnosis Diagnosis: Displaced femoral neck fracture right hip - Consultation Note Consultation Note: The patient son and patient were both present for this treatment options. This includes nonoperative and operative treatment. No matter how his hip fracture is treated, there is significant morbidity and mortality. The risks are generally greater for nonoperative treatment and operative treatment. The patient and son both prefer surgical treatment to help reduce pain and impro ve mobility including ambulation. The patient has been evaluated preoperatively by our hospitalist who feel that there is no absolute contraindication to proceeding with surgery I discussed the risk, goals and likelihood achieving goals, alternatives, disability and mortality. Patient is agreement and has signed informed consent - Plan Plan: The plan is a right hip hemiarthroplasty
--- NOTE | 2021-11-07 16:17 | OPERATIVE REPORT ---
Operative Report - General Admit Date: 11/06/21 Procedure Date: 11/07/21 Planned Procedure: Right hip hemiarthroplasty Pre-Op Diagnosis: Displaced femoral neck fracture right hip Procedure Performed: Right hip hemiarthroplasty using [employer] #15 noncemented femoral component, +0, standard offset with 54 mm unipolar femoral head Post Op Diagnosis: Same as preoperative diagnosis - Procedure Note Primary Surgeon: Chance Aiken MD Secondary Surgeon: Freedom SIFUENTES Anesthesia Provider: Radha Richmond CRNA Anesthesia Technique: General ET tube, Regional block Estimated Blood Loss (mL): 200 Indications: This is a ambulatory 75-year-old gentleman with multiple comorbidities who fell yesterday evening, standing. There were no provocative factors associated with the fall. He had immediate pain and although it did increase after the fall. He cannot bear weight on the right leg without pain. His exam showed shortening, external rotation deformity to the right leg, marked pain with movement of the right hip even with passive motion. His preoperative x-ray showed a displaced femoral neck fracture of the right hipHe had preoperative medical evaluation. An informed consent was obtained with agreement to proceed with a right hip hemiarthroplasty Findings: Displaced mildly comminuted femoral neck fracture right hip Complications: None - Other Other Information/Narrative: The patient was given a general endotracheal anesthesia supplemented by regional blocks. He was placed in a lateral decubitus position using a pegboard to secure the pelvis and torso. The right hip and right lower extremity were prepped and draped in a sterile manner in the usual fashion. A timeout procedure was performed by the entire operating room team. A longitudinal incision was made over the lateral right hip, centered about the trochanter. The fascia abhilash was incised in line with the incision. The anterior third of the gluteus medius was released at its tendinous junction to the trochanter. The hip capsule was exposed anteriorly with adduction and external rotation of the right hip. The hip capsule was opened in a T-shaped fashion and. The femoral head was identified. The femoral head was removed with a corkscrew and measured 54 mm in diameter. The femoral canal was opened with the right leg placed in a pocket. The femoral canal was opened with a box osteotome, starter reamer and then additional reamers. Broaching was carried out to a #15 which seemed to give the best fit and stability. A trial reduction was performed and found to be satisfactory. A #15 femoral stem was gently impacted, seated and found to be stable to push pull and rotation. A 54 mm unipolar head was then impacted on the femoral trunnion. The hip was reduced and found to be stable. Leg length tension was good. Vancomycin was inserted, 1 g; dilute Betadine irrigation. The gluteus medius anterior third tendon was reattached with 2 drill holes placed in the greater trochanter and sutured with #2 Arthrex suture. Additional sutures were placed using #1 strata fix to obtain a secure repair of the gluteus medius. The fascia abhilash was closed with #1 strata fix. The subcutaneous tissue was closed with 2 oh strata fix. The skin was closed with 3-0 Strata fix. Mepilex surgical dressing was applied. Patient received 2 g of Ancef and a gram of tranexamic acid, tolerated procedure well a physician library services assistant was utilized to help with prepping draping, retraction and protection of vital structures, reduction, wound closure
--- NOTE | 2021-11-07 17:04 | XRAY Report ---
PROCEDURE: Pelvis 1 View INDICATIONS: postop TECHNIQUE: 1 view(s) of the pelvis acquired. COMPARISON: None. FINDINGS: Bones: Expected appearance of right hip arthroplasty. No evidence of hardware failure or loosening. No fractures or dislocations. No suspicious bony lesions. Soft tissues: Visualized bowel gas pattern is normal. No suspicious soft tissue calcifications. IMPRESSION: Expected appearance of right hip arthroplasty. Reviewed by: Roman Butler MD on 11/07/2021 5:03 PM PST Approved by: Roman Butler MD on 11/07/2021 5:03 PM PST Station ID: [id number]
--- NOTE | 2021-11-07 19:07 | ANESTHESIA POST OP EVALUATION ---
Anesthesia Post Eval - Post Anesthesia Eval Vitals: Last Vital Signs Temp 36.8 C 11/07/21 08:49 Pulse 75 11/07/21 08:49 Resp 16 11/07/21 08:49 BP 122/57 L 11/07/21 08:49 Pulse Ox 96 11/07/21 08:49 CV Function Including HR & BP: Stable Pain Control: Satisfactory Nausea & Vomiting: Negative Mental Status: Baseline Respiratory Status: Airway Patent Hydration Status: Satisfactory Anesthesia Complications: None
[2021-11-07] MEDS ORDERED: ceFAZolin 2 GM in SODIUM CHLORIDE 0.9% 100ML 100 ML IV ONE (22:00)
[2021-11-07] MEDS: ATORVASTATIN 10 MG TABLET PO SCH (22:17)
[2021-11-07] MEDS: INSULIN GLARGINE 300 UNIT/3 ML PEN SUBQ SCH (22:19)
[2021-11-08] MEDS: SODIUM CHLORIDE FLUSH 0.9% 10 ML SYRINGE IVP SCH ×3 (01:23→16:44)
[2021-11-08 07:12] LABS: BASOPHILS % (AUTO) 0.5 %; EOSINOPHILS # (AUTO) 0.4 10^3/uL (0.0-0.7); EOSINOPHILS % (AUTO) 6.3 %; HCT - HEMATOCRIT 37.7 % (42.0-52.0); HGB - HEMOGLOBIN 12.3 g/dL (14.0-18.0); LYMPHOCYTES # (AUTO) 0.9 10^3/uL (1.5-3.5); LYMPHOCYTES % (AUTO) 14.4 %; MEAN CORPUSCULAR HEMOGLOBIN 29.9 pg (27.0-31.0); MEAN CORPUSCULAR HGB CONC 32.6 g/dL (32.0-36.0); MEAN CORPUSCULAR VOLUME 91.7 fL (80.0-94.0); MEAN PLATELET VOLUME 9.7 fL (7.4-11.4); MONOCYTES # (AUTO) 0.6 10^3/uL (0.0-1.0); MONOCYTES % (AUTO) 8.4 %; NEUTROPHILS # (AUTO) 4.6 10^3/uL (1.5-6.6); NEUTROPHILS % (AUTO) 70.1 %; PLT - PLATELET COUNT 192 10^3/uL (130-450); RED BLOOD COUNT 4.11 10^6/uL (4.70-6.10); RED CELL DISTRIBUTION WIDTH 13.5 % (12.0-15.0); WHITE BLOOD COUNT 6.5 x10^3/uL (4.8-10.8)
[2021-11-08 07:19] LABS: CALCIUM 8.4 mg/dL (8.5-10.3); POTASSIUM 4.4 mmol/L (3.5-5.0)
[2021-11-08] MEDS ORDERED: VANCOMYCIN 1 GM VIAL MC ONE (07:52)
[2021-11-08] MEDS: lamoTRIgine 100 MG TABLET PO SCH ×2 (10:22→20:59)
[2021-11-08] MEDS: ACETAMINOPHEN 325 MG TABLET PO PRN ×2 (10:22→17:11)
[2021-11-08] MEDS: TOPIRAMATE 25 MG TABLET PO SCH ×2 (10:22→20:59)
[2021-11-08] MEDS: lamoTRIgine 25 MG TABLET PO SCH ×2 (10:23→21:00)
[2021-11-08] MEDS: levETIRAcetam 250 MG TABLET PO SCH ×2 (10:23→21:00)
[2021-11-08] MEDS: PHENYTOIN ER 100 MG CAPSULE PO SCH ×2 (10:23→21:00)
[2021-11-08] MEDS: METOPROLOL SUCCINATE 25 MG TABLET PO SCH ×2 (10:24→21:01)
[2021-11-08] MEDS: oxyCODONE 5 MG TABLET PO PRN ×2 (10:25→17:11)
[2021-11-08] MEDS ORDERED: LORazepam 2 MG/ML VIAL IVP PRN (10:36)
[2021-11-08] MEDS: ASPIRIN EC 81 MG TABLET PO SCH (10:42)
[2021-11-08] MEDS: TAMSULOSIN 0.4 MG CAPSULE PO SCH (10:42)
[2021-11-08] MEDS: FINASTERIDE 5 MG TABLET PO SCH (10:42)
[2021-11-08] MEDS: INSULIN ASPART 300 UNIT/3 ML PEN SUBQ SCH ×4 (10:43→21:01)
[2021-11-08] MEDS ORDERED: INSULIN ASPART 300 UNIT/3 ML PEN SUBQ ONE (12:29)
--- NOTE | 2021-11-08 12:36 | PROVIDER PROGRESS NOTE ---
Assessment/Plan - Problem List (1) Closed right hip fracture Qualifiers: Encounter type: initial encounter Qualified Code(s): S72.001A - Fracture of unspecified part of neck of right femur, initial encounter for closed fracture Assessment/Plan: 14 D1 status post of right hip repair. We will continue physical therapist and occupational therapist, continue pain control, Add Lovenox for DVT prophylaxis. Consult with social work for disposition planning, Appreciate orthopedic surgery input. (2) Seizure disorder Had one seizure at [employer], Patient's family report patient usually has seizure when he had some distress. Will resume four patient seizure medications, will also check 3 of the 4 seizure medication serum concentration, Add Ativan as needed for seizure (3) History of coronary artery disease Conclusion/Plan: stable. We will continue his home aspirin, statin, beta-viral. We will check a preop EKG. 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 (5) Type 2 diabetes mellitus Conclusion/Plan: He is on glipizide and Metformin at home. We will start him on Lantus this evening and slid scale. We will start him on a carb controlled diet postoperatively. Continue blood glucose monitoring and sliding scale. - Current Meds Current Meds: Current Medications Generic Name Dose Route Start Last Admin Trade Name Freq PRN Reason Stop Dose Admin Acetaminophen 650 mg 11/06/21 21:18 11/08/21 10:22 Acetaminophen 325 Mg Tablet PO 650 mg Q4HR PRN Administration Pain 1 to 4 Aspirin 81 mg 11/08/21 09:00 11/08/21 10:42 Aspirin Ec 81 Mg Tablet PO 81 mg DAILY JAKE Administration Atorvastatin Calcium 20 mg 11/06/21 23:00 11/07/21 22:17 Atorvastatin 10 Mg Tablet PO 20 mg QPM JAKE Administration Finasteride 5 mg 11/08/21 09:00 11/08/21 10:42 Finasteride 5 Mg Tablet PO 5 mg DAILY JAKE Administration Insulin Glargine 5 unit 11/06/21 21:24 11/07/21 22:19 Insulin Glargine 300 Unit/3 Ml Pen SUBQ 5 unit QPM JAKE Administration Lamotrigine 25 mg 11/06/21 22:00 11/08/21 10:23 Lamotrigine 25 Mg Tablet PO 25 mg BID JAKE Administration Lamotrigine 200 mg 11/06/21 22:00 11/08/21 10:22 Lamotrigine 100 Mg Tablet PO 200 mg BID JAKE Administration Levetiracetam 1,000 mg 11/06/21 23:00 11/08/21 10:23 Levetiracetam 250 Mg Tablet PO 1,000 mg BID JAKE Administration Metoprolol Succinate 12.5 mg 11/06/21 22:00 11/08/21 10:24 Metoprolol Succinate 25 Mg Tablet PO 12.5 mg BID JAKE Administration Oxycodone HCl 10 mg 11/06/21 21:18 11/08/21 10:25 Oxycodone 5 Mg Tablet PO 10 mg Q4HR PRN Administration Pain 8 to 10 Phenytoin Sodium 300 mg 11/07/21 09:00 11/08/21 10:23 Phenytoin Er 100 Mg Capsule PO 300 mg DAILY JAKE Administration Phenytoin Sodium 400 mg 11/06/21 23:00 11/07/21 22:18 Phenytoin Er 100 Mg Capsule PO 400 mg QPM JAKE Administration Sodium Chloride 10 ml 11/07/21 01:00 11/08/21 10:42 Sodium Chloride Flush 0.9% 10 Ml Syringe IVP 10 ml 0100,0900,1700 JAKE Administration Tamsulosin HCl 0.4 mg 11/08/21 09:00 11/08/21 10:42 Tamsulosin 0.4 Mg Capsule PO 0.4 mg DAILY JAKE Administration Topiramate 50 mg 11/06/21 23:00 11/08/21 10:22 Topiramate 25 Mg Tablet PO 50 mg BID JAKE Administration - Lab Result Fish Bone Diagrams: 11/08/21 06:45 11/08/21 06:45 - Additional Planning My Orders: My Active Orders 11/08/21 08:10 Incentive Spirometry - RT [RC] TID 11/08/21 08:39 LAMOTRIGINE [REFLAB] Urgent LEVETIRACETAM (KEPPRA) LEVEL [REFLAB] Urgent 11/08/21 09:00 Aspirin EC [Ecotrin] 81 mg PO DAILY Finasteride [Proscar] 5 mg PO DAILY Tamsulosin [Flomax] 0.4 mg PO DAILY 11/08/21 10:36 LORazepam INJ [Ativan Inj (Vial)] 2 mg IVP Q2H PRN 01/04/22 12:28 HEMOGLOBIN A1c% [CHEM] Urgent 11/08/21 13:00 Enoxaparin [Lovenox] 40 mg SUBQ DAILY 11/08/21 17:00 Insulin Aspart [NovoLOG] 2 - 10 unit SUBQ 0800,1200,1700,2100 Subjective - Subjective Patient Reports: Resting Comfortably Objective Vital Signs: Vital Signs - 24 hr 11/07/21 11/07/21 11/07/21 16:56 17:00 17:30 Temperature 36.5 C 36.5 C 36.5 C Heart Rate [ 72 66 66 Brachial] Respiratory 20 20 20 Rate Blood Pressure 120/65 128/65 118/69 [Right Brachial artery] O2 Saturation 92 98 95 11/07/21 11/07/21 11/07/21 18:00 18:30 19:00 Temperature 36.5 C 36.4 C L 36.4 C L Heart Rate [ 68 65 64 Brachial] Respiratory 20 21 20 Rate Blood Pressure 121/65 118/65 113/61 [Right Brachial artery] O2 Saturation 96 100 100 11/07/21 11/07/21 11/07/21 19:30 20:30 21:30 Temperature 36.4 C L 36.4 C L 36.4 C L Heart Rate [ 72 73 71 Brachial] Respiratory 21 21 20 Rate Blood Pressure 123/63 117/62 120/57 L [Right Brachial artery] O2 Saturation 98 97 97 11/07/21 11/07/21 22:30 23:57 Temperature 36.4 C L 36.8 C Heart Rate [ 73 76 Brachial] Respiratory 20 18 Rate Blood Pressure 109/61 107/54 L [Right Brachial artery] O2 Saturation 94 95 Oxygen O2 Source [With Activity] Room air O2 Source Room air I&O (Last 24 Hrs): Intake and Output Totals x24h 11/06/21 11/07/21 11/08/21 23:59 23:59 23:59 Intake Total 460 220 Output Total 650 1025 Balance -190 -805 General: Alert, No acute distress HEENT: Atraumatic Neck: Supple Lymphatic: no adenopathy Neuro: Alert, Non Focal Cardiovascular: Regular rate, Normal S1, Normal S2 Respiratory: Chest non-tender, No respiratory distress Abdomen: Normal bowel sounds, Soft Extremities: Normal pulses - Results Results: Laboratory Results WBC 6.5 x10^3/uL (4.8-10.8) 11/08/21 06:45 RBC 4.11 10^6/uL (4.70-6.10) L 11/08/21 06:45 Hgb 12.3 g/dL (14.0-18.0) L 11/08/21 06:45 Hct 37.7 % (42.0-52.0) L 11/08/21 06:45 MCV 91.7 fL (80.0-94.0) 11/08/21 06:45 MCH 29.9 pg (27.0-31.0) 11/08/21 06:45 MCHC 32.6 g/dL (32.0-36.0) 11/08/21 06:45 RDW 13.5 % (12.0-15.0) 11/08/21 06:45 Plt Count 192 10^3/uL (130-450) 11/08/21 06:45 MPV 9.7 fL (7.4-11.4) 11/08/21 06:45 Neut # (Auto) 4.6 10^3/uL (1.5-6.6) 11/08/21 06:45 Lymph # (Auto) 0.9 10^3/uL (1.5-3.5) L 11/08/21 06:45 [place] # (Auto) 0.6 10^3/uL (0.0-1.0) 11/08/21 06:45 Eos # (Auto) 0.4 10^3/uL (0.0-0.7) 11/08/21 06:45 Baso # (Auto) 0.0 10^3/uL (0.0-0.1) 11/08/21 06:45 Absolute Nucleated RBC 0.00 x10^3/uL 11/08/21 06:45 Nucleated RBC % 0.0 /100WBC 11/08/21 06:45 PT 11.7 secs (9.9-12.6) 11/06/21 21:20 INR 1.1 (0.8-1.2) 11/06/21 21:20 APTT 25.3 secs (24.9-33.3) 11/06/21 21:20 Sodium 133 mmol/L (135-145) L 11/08/21 06:45 Potassium 4.4 mmol/L (3.5-5.0) 11/08/21 06:45 Chloride 103 mmol/L (101-111) 11/08/21 06:45 Carbon Dioxide 22 mmol/L (21-32) 11/08/21 06:45 Anion Gap 8.0 (6-13) 11/08/21 06:45 BUN 16 mg/dL (6-20) 11/08/21 06:45 Creatinine 1.0 mg/dL (0.6-1.2) 11/08/21 06:45 Estimated GFR (MDRD) 73 (>89) L 11/08/21 06:45 Glucose 149 mg/dL (70-100) H 11/08/21 06:45 POC Whole Bld Glucose 292 mg/dL (70 - 100) H 11/08/21 11:36 Calcium 8.4 mg/dL (8.5-10.3) L 11/08/21 06:45 Total Bilirubin 0.5 mg/dL (0.2-1.0) 11/06/21 21:20 AST 35 IU/L (10-42) 11/06/21 21:20 ALT 39 IU/L (10-60) 11/06/21 21:20 Alkaline Phosphatase 91 IU/L (42-121) 11/06/21 21:20 Total Protein 8.7 g/dL (6.7-8.2) H 11/06/21 21:20 Albumin 4.4 g/dL (3.2-5.5) 11/06/21 21:20 Globulin 4.3 g/dL (2.1-4.2) H 11/06/21 21:20 Albumin/Globulin Ratio 1.0 (1.0-2.2) 11/06/21 21:20 Lipase 38 U/L (22-51) 11/06/21 21:20 Urine Color DARK YELLOW 11/06/21 21:12 Urine Clarity CLEAR (CLEAR) 11/06/21 21:12 Urine pH 6.0 PH (5.0-7.5) 11/06/21 21:12 Ur Specific [place] 1.020 (1.002-1.030) 11/06/21 21:12 Urine Protein TRACE mg/dL (NEGATIVE) 11/06/21 21:12 Urine Glucose (UA) 100 mg/dL (NEGATIVE) H 11/06/21 21:12 Urine Ketones NEGATIVE mg/dL (NEGATIVE) 11/06/21 21:12 Urine Occult Blood NEGATIVE (NEGATIVE) 11/06/21 21:12 Urine Nitrite NEGATIVE (NEGATIVE) 11/06/21 21:12 Urine Bilirubin NEGATIVE (NEGATIVE) 11/06/21 21:12 Urine Urobilinogen 0.2 (NORMAL) E.U./dL (NORMAL) 11/06/21 21:12 Ur Leukocyte Esterase NEGATIVE (NEGATIVE) 11/06/21 21:12 Ur Microscopic Review NOT INDICATED 11/06/21 21:12 Urine Culture Comments NOT INDICATED 11/06/21 21:12 Nasal Adenovirus (PCR) NOT DETECTED 11/06/21 20:35 Nasal B. parapertussis DNA (PCR) NOT DETECTED 11/06/21 20:35 Nasal Coronavir 229E PCR NOT DETECTED 11/06/21 20:35 Nasal Coronavir HKU1 PCR NOT DETECTED 11/06/21 20:35 Nasal Coronavir NL63 PCR NOT DETECTED 11/06/21 20:35 Nasal Coronavir OC43 PCR NOT DETECTED 11/06/21 20:35 Nasal Enterovir/Rhinovir PCR NOT DETECTED 11/06/21 20:35 Nasal Influenza B PCR NOT DETECTED 11/06/21 20:35 Nasal Influenza A PCR NOT DETECTED 11/06/21 20:35 Nasal Parainfluen 1 PCR NOT DETECTED 11/06/21 20:35 Nasal Parainfluen 2 PCR NOT DETECTED 11/06/21 20:35 Nasal Parainfluen 3 PCR NOT DETECTED 11/06/21 20:35 Nasal Parainfluen 4 PCR NOT DETECTED 11/06/21 20:35 Nasal RSV (PCR) NOT DETECTED 11/06/21 20:35 Nasal B.pertussis DNA PCR NOT DETECTED 11/06/21 20:35 Nasal C.pneumoniae (PCR) NOT DETECTED 11/06/21 20:35 Akhil Human Metapneumo PCR NOT DETECTED 11/06/21 20:35 Nasal M.pneumoniae (PCR) NOT DETECTED 11/06/21 20:35 Nasal SARS-CoV-2 (PCR) NOT DETECTED 11/06/21 20:35 Phenytoin 25.4 ug/mL 11/08/21 08:39 - Procedures Procedures: Procedures EXCISION OF ASCENDING COLON, ENDO (03/29/17) EXCISION OF DESCENDING COLON, ENDO (03/29/17) EXCISION OF RECTUM, ENDO (03/29/17) INSERTION OF INFUSION DEV INTO SUP VENA CAVA, PERC APPROACH (11/05/17) ABX Reporting Has patient been on IV antibiotics over the past 48 hours?: No Current Medications - Current Medications Current Medications: Active Medications Acetaminophen (Acetaminophen 325 Mg Tablet) 650 mg PO Q4HR PRN PRN Reason: Pain 1 to 4 Last Admin: 11/08/21 10:22 Dose: 650 mg Documented by: Aspirin (Aspirin Ec 81 Mg Tablet) 81 mg PO DAILY [facility] Last Admin: 11/08/21 10:42 Dose: 81 mg Documented by: Atorvastatin Calcium (Atorvastatin 10 Mg Tablet) 20 mg PO QPM [facility] Last Admin: 11/07/21 22:17 Dose: 20 mg Documented by: Enoxaparin Sodium (Enoxaparin 40 Mg/0.4 Ml Syringe) 40 mg SUBQ DAILY [facility] Finasteride (Finasteride 5 Mg Tablet) 5 mg PO DAILY [facility] Last Admin: 11/08/21 10:42 Dose: 5 mg Documented by: Insulin Aspart (Insulin Aspart 300 Unit/3 Ml Pen) 2 - 10 unit SUBQ 0800,1200,17 00,2100 [facility]; Protocol Insulin Glargine (Insulin Glargine 300 Unit/3 Ml Pen) 5 unit SUBQ QPM [facility] Last Admin: 11/07/21 22:19 Dose: 5 unit Documented by: Lamotrigine (Lamotrigine 25 Mg Tablet) 25 mg PO BID [facility] Last Admin: 11/08/21 10:23 Dose: 25 mg Documented by: Lamotrigine (Lamotrigine 100 Mg Tablet) 200 mg PO BID [facility] Last Admin: 11/08/21 10:22 Dose: 200 mg Documented by: Levetiracetam (Levetiracetam 250 Mg Tablet) 1,000 mg PO BID [facility] Last Admin: 11/08/21 10:23 Dose: 1,000 mg Documented by: Lorazepam (Lorazepam 2 Mg/Ml Vial) 2 mg IVP Q2H PRN PRN Reason: Seizure Metoprolol Succinate (Metoprolol Succinate 25 Mg Tablet) 12.5 mg PO BID [facility] Last Admin: 11/08/21 10:24 Dose: 12.5 mg Documented by: Morphine Sulfate (Morphine 2 Mg/Ml Carpuject) 2 mg IVP Q2HR PRN PRN Reason: Pain 8 to 10 Ondansetron HCl (Ondansetron Odt 4 Mg Tablet) 4 mg TL Q6HR PRN PRN Reason: Nausea / Vomiting Ondansetron HCl (Ondansetron 4 Mg/2 Ml Vial) 4 mg IVP Q6HR PRN PRN Reason: Nausea / Vomiting Oxycodone HCl (Oxycodone 5 Mg Tablet) 10 mg PO Q4HR PRN PRN Reason: Pain 8 to 10 Last Admin: 11/08/21 10:25 Dose: 10 mg Documented by: Phenytoin Sodium (Phenytoin Er 100 Mg Capsule) 300 mg PO DAILY [facility] Last Admin: 11/08/21 10:23 Dose: 300 mg Documented by: Phenytoin Sodium (Phenytoin Er 100 Mg Capsule) 400 mg PO QPM [facility] Last Admin: 11/07/21 22:18 Dose: 400 mg Documented by: Sodium Chloride (Sodium Chloride Flush 0.9% 10 Ml Syringe) 10 ml IVP PRN PRN PRN Reason: NEEDED PER PROVIDER ORDERS Sodium Chloride (Sodium Chloride Flush 0.9% 10 Ml Syringe) 10 ml IVP 0100,0900 ,1700 [facility] Last Admin: 11/08/21 10:42 Dose: 10 ml Documented by: Tamsulosin HCl (Tamsulosin 0.4 Mg Capsule) 0.4 mg PO DAILY [facility] Last Admin: 11/08/21 10:42 Dose: 0.4 mg Documented by: Topiramate (Topiramate 25 Mg Tablet) 50 mg PO BID [facility] Last Admin: 11/08/21 10:22 Dose: 50 mg Documented by: Phenytoin Sodium Extended [Dilantin] 300 mg PO DAILY 05/18/13 glipiZIDE ER [Glucotrol Xl] 2.5 mg PO DAILY 12/19/17 Metoprolol Succinate 12.5 mg PO BID 09/04/18
[2021-11-08 13:09] LABS: ESTIMATED AVERAGE GLUCOSE 126 mg/dL (70-100)
[2021-11-08] MEDS: ENOXAPARIN 40 MG/0.4 ML SYRINGE SUBQ SCH (13:46)
[2021-11-08] MEDS: SODIUM CHLORIDE FLUSH 0.9% 10 ML SYRINGE IVP PRN (16:44)
[2021-11-08] MEDS: ATORVASTATIN 10 MG TABLET PO SCH (20:59)
[2021-11-08] MEDS: INSULIN GLARGINE 300 UNIT/3 ML PEN SUBQ SCH (21:00)
[2021-11-09] MEDS: SODIUM CHLORIDE FLUSH 0.9% 10 ML SYRINGE IVP SCH ×3 (00:48→17:28)
[2021-11-09 07:30] LABS: BASOPHILS % (AUTO) 0.5 %; EOSINOPHILS # (AUTO) 0.3 10^3/uL (0.0-0.7); EOSINOPHILS % (AUTO) 5.1 %; HCT - HEMATOCRIT 36.2 % (42.0-52.0); HGB - HEMOGLOBIN 11.9 g/dL (14.0-18.0); LYMPHOCYTES # (AUTO) 1.2 10^3/uL (1.5-3.5); LYMPHOCYTES % (AUTO) 18.6 %; MEAN CORPUSCULAR HEMOGLOBIN 30.1 pg (27.0-31.0); MEAN CORPUSCULAR HGB CONC 32.9 g/dL (32.0-36.0); MEAN CORPUSCULAR VOLUME 91.6 fL (80.0-94.0); MEAN PLATELET VOLUME 9.7 fL (7.4-11.4); MONOCYTES # (AUTO) 0.8 10^3/uL (0.0-1.0); MONOCYTES % (AUTO) 12.1 %; NEUTROPHILS # (AUTO) 4.2 10^3/uL (1.5-6.6); NEUTROPHILS % (AUTO) 63.2 %; PLT - PLATELET COUNT 191 10^3/uL (130-450); RED BLOOD COUNT 3.95 10^6/uL (4.70-6.10); RED CELL DISTRIBUTION WIDTH 13.4 % (12.0-15.0); WHITE BLOOD COUNT 6.6 x10^3/uL (4.8-10.8)
[2021-11-09 07:42] LABS: CALCIUM 8.5 mg/dL (8.5-10.3); POTASSIUM 4.3 mmol/L (3.5-5.0)
[2021-11-09] MEDS: FINASTERIDE 5 MG TABLET PO SCH (08:38)
[2021-11-09] MEDS: lamoTRIgine 100 MG TABLET PO SCH ×2 (08:38→21:52)
[2021-11-09] MEDS: ASPIRIN EC 81 MG TABLET PO SCH (08:38)
[2021-11-09] MEDS: lamoTRIgine 25 MG TABLET PO SCH ×2 (08:38→21:52)
[2021-11-09] MEDS: INSULIN ASPART 300 UNIT/3 ML PEN SUBQ SCH ×4 (08:38→21:47)
[2021-11-09] MEDS: TAMSULOSIN 0.4 MG CAPSULE PO SCH (08:38)
[2021-11-09] MEDS: levETIRAcetam 250 MG TABLET PO SCH ×2 (08:38→21:49)
[2021-11-09] MEDS: ENOXAPARIN 40 MG/0.4 ML SYRINGE SUBQ SCH (08:39)
[2021-11-09] MEDS: TOPIRAMATE 25 MG TABLET PO SCH ×2 (08:39→21:52)
[2021-11-09] MEDS: METOPROLOL SUCCINATE 25 MG TABLET PO SCH ×2 (08:39→21:52)
[2021-11-09] MEDS: PHENYTOIN ER 100 MG CAPSULE PO SCH ×2 (08:39→21:49)
[2021-11-09] MEDS: ACETAMINOPHEN 325 MG TABLET PO PRN (10:29)
[2021-11-09] MEDS: polyethylene glycoL 3350 17 GM PACKET PO SCH (10:29)
[2021-11-09] MEDS: oxyCODONE 5 MG TABLET PO PRN (10:29)
--- NOTE | 2021-11-09 11:46 | PROVIDER PROGRESS NOTE ---
Assessment/Plan - Problem List (1) Closed right hip fracture Qualifiers: Encounter type: initial encounter Qualified Code(s): S72.001A - Fracture of unspecified part of neck of right femur, initial encounter for closed fracture Assessment/Plan: 1-5 day 2 status post of right hip repair. continue physical therapist and occupational therapist, continue pain control, Lovenox for DVT prophylaxis. Consult with social work for disposition planning, 14 D1 status post of right hip repair. We will continue physical therapist and occupational therapist, continue pain control, Add Lovenox for DVT prophylaxis. Consult with social work for disposition planning, Appreciate orthopedic surgery input. (2) Seizure disorder 1-5 pt has no seizure, continue home meds, and Ativan as needed for seizure Had one seizure at [employer], Patient's family report patient usually has seizure when he had some distress. Will resume four patient seizure medications, will also check 3 of the 4 seizure medication serum concentration, Add Ativan as needed for seizure (3) History of coronary artery disease Conclusion/Plan: stable. We will continue his home aspirin, statin, beta-viral. We will check a preop EKG. 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 (5) Type 2 diabetes mellitus Conclusion/Plan: He is on glipizide and Metformin at home. We will start him on Lantus this evening and slid scale. We will start him on a carb controlled diet postoperatively. Continue blood glucose monitoring and sliding scale. - Current Meds Current Meds: Current Medications Generic Name Dose Route Start Last Admin Trade Name Freq PRN Reason Stop Dose Admin Acetaminophen 650 mg 11/06/21 21:18 11/09/21 10:29 Acetaminophen 325 Mg Tablet PO 650 mg Q4HR PRN Administration Pain 1 to 4 Aspirin 81 mg 11/08/21 09:00 11/09/21 08:38 Aspirin Ec 81 Mg Tablet PO 81 mg DAILY JAKE Administration Atorvastatin Calcium 20 mg 11/06/21 23:00 11/08/21 20:59 Atorvastatin 10 Mg Tablet PO 20 mg QPM JAKE Administration Enoxaparin Sodium 40 mg 11/08/21 13:00 11/09/21 08:39 Enoxaparin 40 Mg/0.4 Ml Syringe SUBQ 40 mg DAILY JAKE Administration Finasteride 5 mg 11/08/21 09:00 11/09/21 08:38 Finasteride 5 Mg Tablet PO 5 mg DAILY JAKE Administration Insulin Glargine 5 unit 11/06/21 21:24 11/08/21 21:00 Insulin Glargine 300 Unit/3 Ml Pen SUBQ 5 unit QPM JAKE Administration Lamotrigine 25 mg 11/06/21 22:00 11/09/21 08:38 Lamotrigine 25 Mg Tablet PO 25 mg BID JAKE Administration Lamotrigine 200 mg 11/06/21 22:00 11/09/21 08:38 Lamotrigine 100 Mg Tablet PO 200 mg BID JAKE Administration Levetiracetam 1,000 mg 11/06/21 23:00 11/09/21 08:38 Levetiracetam 250 Mg Tablet PO 1,000 mg BID JAKE Administration Metoprolol Succinate 12.5 mg 11/06/21 22:00 11/09/21 08:39 Metoprolol Succinate 25 Mg Tablet PO 12.5 mg BID JAKE Administration Oxycodone HCl 10 mg 11/06/21 21:18 11/09/21 10:29 Oxycodone 5 Mg Tablet PO 10 mg Q4HR PRN Administration Pain 8 to 10 Phenytoin Sodium 300 mg 11/07/21 09:00 11/09/21 08:39 Phenytoin Er 100 Mg Capsule PO 300 mg DAILY JAKE Administration Phenytoin Sodium 400 mg 11/06/21 23:00 11/08/21 21:00 Phenytoin Er 100 Mg Capsule PO 400 mg QPM JAKE Administration Polyethylene Glycol 17 gm 11/09/21 10:00 11/09/21 10:29 Polyethylene Glycol 3350 17 Gm Packet PO 17 gm DAILY JAKE Administration Sodium Chloride 10 ml 11/06/21 21:18 11/08/21 16:44 Sodium Chloride Flush 0.9% 10 Ml Syringe IVP 10 ml PRN PRN Administration NEEDED PER PROVIDER ORDERS Sodium Chloride 10 ml 11/07/21 01:00 11/09/21 08:39 Sodium Chloride Flush 0.9% 10 Ml Syringe IVP 10 ml 0100,0900,1700 JAKE Administration Tamsulosin HCl 0.4 mg 11/08/21 09:00 11/09/21 08:38 Tamsulosin 0.4 Mg Capsule PO 0.4 mg DAILY JAKE Administration Topiramate 50 mg 11/06/21 23:00 11/09/21 08:39 Topiramate 25 Mg Tablet PO 50 mg BID JAKE Administration - Lab Result Fish Bone Diagrams: 11/09/21 07:21 11/09/21 07:21 - Additional Planning My Orders: My Active Orders 11/08/21 13:00 Enoxaparin [Lovenox] 40 mg SUBQ DAILY 11/09/21 10:00 polyethylene glycoL 3350 [Miralax] 17 gm PO DAILY 11/09/21 12:00 Insulin Aspart [NovoLOG] 3 - 11 unit SUBQ 0800,1200,1700,2100 Subjective - Subjective Patient Reports: Resting Comfortably Objective Vital Signs: Vital Signs - 24 hr 11/08/21 11/08/21 11/08/21 13:45 17:03 23:53 Temperature 36.9 C 36.9 C Heart Rate [ 89 85 Brachial] Heart Rate [ 99 Sitting] Heart Rate [ 89 Supine] Respiratory 18 20 Rate Blood Pressure 97/48 L [Left Brachial artery] Blood Pressure 105/62 [Right Brachial artery] Blood Pressure 104/69 [Sitting] Blood Pressure 103/54 L [Supine] O2 Saturation 97 97 11/09/21 11/09/21 00:50 08:37 Temperature 36.6 C Heart Rate [ 85 93 Brachial] Heart Rate [ Sitting] Heart Rate [ Supine] Respiratory 20 Rate Blood Pressure [Left Brachial artery] Blood Pressure 105/54 L 103/68 [Right Brachial artery] Blood Pressure [Sitting] Blood Pressure [Supine] O2 Saturation 94 Oxygen O2 Source [With Activity] Room air O2 Source Room air I&O (Last 24 Hrs): Intake and Output Totals x24h 11/07/21 11/08/21 11/09/21 23:59 23:59 23:59 Intake Total 460 700 240 Output Total 650 1025 Balance -190 -325 240 General: Alert, No acute distress HEENT: Atraumatic Neck: Supple Lymphatic: no adenopathy Neuro: Alert, Non Focal Cardiovascular: Regular rate, Normal S1, Normal S2 Respiratory: Chest non-tender, No respiratory distress Abdomen: Normal bowel sounds, Soft Extremities: Normal pulses - Results Results: Laboratory Results WBC 6.6 x10^3/uL (4.8-10.8) 11/09/21 07:21 RBC 3.95 10^6/uL (4.70-6.10) L 11/09/21 07:21 Hgb 11.9 g/dL (14.0-18.0) L 11/09/21 07:21 Hct 36.2 % (42.0-52.0) L 11/09/21 07:21 MCV 91.6 fL (80.0-94.0) 11/09/21 07:21 MCH 30.1 pg (27.0-31.0) 11/09/21 07: MCHC 32.9 g/dL (32.0-36.0) 11/09/21 07:21 RDW 13.4 % (12.0-15.0) 11/09/21 07:21 Plt Count 191 10^3/uL (130-450) 11/09/21 07:21 MPV 9.7 fL (7.4-11.4) 11/09/21 07:21 Neut # (Auto) 4.2 10^3/uL (1.5-6.6) 11/09/21 07:21 Lymph # (Auto) 1.2 10^3/uL (1.5-3.5) L 11/09/21 07:21 [place] # (Auto) 0.8 10^3/uL (0.0-1.0) 11/09/21 07:21 Eos # (Auto) 0.3 10^3/uL (0.0-0.7) 11/09/21 07:21 Baso # (Auto) 0.0 10^3/uL (0.0-0.1) 11/09/21 07: Absolute Nucleated RBC 0.00 x10^3/uL 11/09/21 07: Nucleated RBC % 0.0 /100WBC 11/09/21 07: PT 11.7 secs (9.9-12.6) 11/06/21 21:20 INR 1.1 (0.8-1.2) 11/06/21 21:20 APTT 25.3 secs (24.9-33.3) 11/06/21 21:20 Sodium 135 mmol/L (135-145) 11/09/21 07:21 Potassium 4.3 mmol/L (3.5-5.0) 01/05/22 07:21 Chloride 102 mmol/L (101-111) 11/09/21 07:21 Carbon Dioxide 24 mmol/L (21-32) 11/09/21 07:21 Anion Gap 9.0 (6-13) 11/09/21 07:21 BUN 15 mg/dL (6-20) 11/09/21 07:21 Creatinine 1.0 mg/dL (0.6-1.2) 11/09/21 07:21 Estimated GFR (MDRD) 73 (>89) L 11/09/21 07:21 Glucose 150 mg/dL (70-100) H 11/09/21 07:21 POC Whole Bld Glucose 219 mg/dL (70 - 100) H 11/09/21 11:04 Estimat Average Glucose 126 mg/dL (70-100) H 11/08/21 06:45 Hemoglobin A1c % 6.0 % (4.27-6.07) 11/08/21 06:45 Calcium 8.5 mg/dL (8.5-10.3) 11/09/21 07:21 Total Bilirubin 0.5 mg/dL (0.2-1.0) 11/06/21 21:20 AST 35 IU/L (10-42) 11/06/21 21:20 ALT 39 IU/L (10-60) 11/06/21 21:20 Alkaline Phosphatase 91 IU/L (42-121) 11/06/21 21:20 Total Protein 8.7 g/dL (6.7-8.2) H 11/06/21 21:20 Albumin 4.4 g/dL (3.2-5.5) 11/06/21 21:20 Globulin 4.3 g/dL (2.1-4.2) H 11/06/21 21:20 Albumin/Globulin Ratio 1.0 (1.0-2.2) 11/06/21 21:20 Lipase 38 U/L (22-51) 11/06/21 21:20 Urine Color DARK YELLOW 11/06/21 21:12 Urine Clarity CLEAR (CLEAR) 11/06/21 21:12 Urine pH 6.0 PH (5.0-7.5) 11/06/21 21:12 Ur Specific [place] 1.020 (1.002-1.030) 11/06/21 21:12 Urine Protein TRACE mg/dL (NEGATIVE) 11/06/21 21:12 Urine Glucose (UA) 100 mg/dL (NEGATIVE) H 11/06/21 21:12 Urine Ketones NEGATIVE mg/dL (NEGATIVE) 11/06/21 21:12 Urine Occult Blood NEGATIVE (NEGATIVE) 11/06/21 21:12 Urine Nitrite NEGATIVE (NEGATIVE) 11/06/21 21:12 Urine Bilirubin NEGATIVE (NEGATIVE) 11/06/21 21:12 Urine Urobilinogen 0.2 (NORMAL) E.U./dL (NORMAL) 11/06/21 21:12 Ur Leukocyte Esterase NEGATIVE (NEGATIVE) 11/06/21 21:12 Ur Microscopic Review NOT INDICATED 11/06/21 21:12 Urine Culture Comments NOT INDICATED 11/06/21 21:12 Nasal Adenovirus (PCR) NOT DETECTED 11/06/21 20:35 Nasal B. parapertussis DNA (PCR) NOT DETECTED 11/06/21 20:35 Nasal Coronavir 229E PCR NOT DETECTED 11/06/21 20:35 Nasal Coronavir HKU1 PCR NOT DETECTED 11/06/21 20:35 Nasal Coronavir NL63 PCR NOT DETECTED 11/06/21 20:35 Nasal Coronavir OC43 PCR NOT DETECTED 11/06/21 20:35 Nasal Enterovir/Rhinovir PCR NOT DETECTED 11/06/21 20:35 Nasal Influenza B PCR NOT DETECTED 11/06/21 20:35 Nasal Influenza A PCR NOT DETECTED 11/06/21 20:35 Nasal Parainfluen 1 PCR NOT DETECTED 11/06/21 20:35 Nasal Parainfluen 2 PCR NOT DETECTED 11/06/21 20:35 Nasal Parainfluen 3 PCR NOT DETECTED 11/06/21 20:35 Nasal Parainfluen 4 PCR NOT DETECTED 11/06/21 20:35 Nasal RSV (PCR) NOT DETECTED 11/06/21 20:35 Nasal B.pertussis DNA PCR NOT DETECTED 11/06/21 20:35 Nasal C.pneumoniae (PCR) NOT DETECTED 11/06/21 20:35 Akhil Human Metapneumo PCR NOT DETECTED 11/06/21 20:35 Nasal M.pneumoniae (PCR) NOT DETECTED 11/06/21 20:35 Nasal SARS-CoV-2 (PCR) NOT DETECTED 11/06/21 20:35 Phenytoin 25.4 ug/mL 11/08/21 08:39 - Procedures Procedures: Procedures EXCISION OF ASCENDING COLON, ENDO (03/29/17) EXCISION OF DESCENDING COLON, ENDO (03/29/17) EXCISION OF RECTUM, ENDO (03/29/17) INSERTION OF INFUSION DEV INTO SUP VENA CAVA, PERC APPROACH (11/05/17) ABX Reporting Has patient been on IV antibiotics over the past 48 hours?: No Current Medications - Current Medications Current Medications: Active Medications Acetaminophen (Acetaminophen 325 Mg Tablet) 650 mg PO Q4HR PRN PRN Reason: Pain 1 to 4 Last Admin: 11/09/21 10:29 Dose: 650 mg Documented by: Aspirin (Aspirin Ec 81 Mg Tablet) 81 mg PO DAILY [facility] Last Admin: 11/09/21 08:38 Dose: 81 mg Documented by: Atorvastatin Calcium (Atorvastatin 10 Mg Tablet) 20 mg PO QPM [facility] Last Admin: 11/08/21 20:59 Dose: 20 mg Documented by: Enoxaparin Sodium (Enoxaparin 40 Mg/0.4 Ml Syringe) 40 mg SUBQ DAILY [facility] Last Admin: 11/09/21 08:39 Dose: 40 mg Documented by: Finasteride (Finasteride 5 Mg Tablet) 5 mg PO DAILY [facility] Last Admin: 11/09/21 08:38 Dose: 5 mg Documented by: Insulin Aspart (Insulin Aspart 300 Unit/3 Ml Pen) 3 - 11 unit SUBQ 0800,1200,1700,2100 [facility]; Protocol Insulin Glargine (Insulin Glargine 300 Unit/3 Ml Pen) 5 unit SUBQ QPM [facility] Last Admin: 11/08/21 21:00 Dose: 5 unit Documented by: Lamotrigine (Lamotrigine 25 Mg Tablet) 25 mg PO BID [facility] Last Admin: 11/09/21 08:38 Dose: 25 mg Documented by: Lamotrigine (Lamotrigine 100 Mg Tablet) 200 mg PO BID [facility] Last Admin: 11/09/21 08:38 Dose: 200 mg Documented by: Levetiracetam (Levetiracetam 250 Mg Tablet) 1,000 mg PO BID [facility] Last Admin: 11/09/21 08:38 Dose: 1,000 mg Documented by: Lorazepam (Lorazepam 2 Mg/Ml Vial) 2 mg IVP Q2H PRN PRN Reason: Seizure Metoprolol Succinate (Metoprolol Succinate 25 Mg Tablet) 12.5 mg PO BID [facility] Last Admin: 11/09/21 08:39 Dose: 12.5 mg Documented by: Morphine Sulfate (Morphine 2 Mg/Ml Carpuject) 2 mg IVP Q2HR PRN PRN Reason: Pain 8 to 10 Ondansetron HCl (Ondansetron Odt 4 Mg Tablet) 4 mg TL Q6HR PRN PRN Reason: Nausea / Vomiting Ondansetron HCl (Ondansetron 4 Mg/2 Ml Vial) 4 mg IVP Q6HR PRN PRN Reason: Nausea / Vomiting Oxycodone HCl (Oxycodone 5 Mg Tablet) 10 mg PO Q4HR PRN PRN Reason: Pain 8 to 10 Last Admin: 11/09/21 10:29 Dose: 10 mg Documented by: Phenytoin Sodium (Phenytoin Er 100 Mg Capsule) 300 mg PO DAILY [facility] Last Admin: 11/09/21 08:39 Dose: 300 mg Documented by: Phenytoin Sodium (Phenytoin Er 100 Mg Capsule) 400 mg PO QPM [facility] Last Admin: 11/08/21 21:00 Dose: 400 mg Documented by: Polyethylene Glycol (Polyethylene Glycol 3350 17 Gm Packet) 17 gm PO DAILY [facility] Last Admin: 11/09/21 10:29 Dose: 17 gm Documented by: Sodium Chloride (Sodium Chloride Flush 0.9% 10 Ml Syringe) 10 ml IVP PRN PRN PRN Reason: NEEDED PER PROVIDER ORDERS Last Admin: 11/08/21 16:44 Dose: 10 ml Documented by: Sodium Chloride (Sodium Chloride Flush 0.9% 10 Ml Syringe) 10 ml IVP 0100,0900,1700 [facility] Last Admin: 11/09/21 08:39 Dose: 10 ml Documented by: Tamsulosin HCl (Tamsulosin 0.4 Mg Capsule) 0.4 mg PO DAILY [facility] Last Admin: 11/09/21 08:38 Dose: 0.4 mg Documented by: Topiramate (Topiramate 25 Mg Tablet) 50 mg PO BID [facility] Last Admin: 11/09/21 08:39 Dose: 50 mg Documented by: Phenytoin Sodium Extended [Dilantin] 300 mg PO DAILY 05/18/13 glipiZIDE ER [Glucotrol Xl] 2.5 mg PO DAILY 12/19/17 Metoprolol Succinate 12.5 mg PO BID 09/04/18
--- NOTE | 2021-11-09 16:43 | PROVIDER PROGRESS NOTE ---
Subjective - General Admit Date: 11/06/21 Procedure Date: 11/07/21 Post Op Days: 2 - Review of Systems Wound/Incisions: positive: Drainage (Small amount of bleeding from inferior part of incision, 1 silver impregnated dressing changed in the last 2 days.) General: negative: Fever, Chills Pulmonary: negative: Shortness of breath Cardiovascular: negative: Chest pain Gastrointestinal: negative: Nausea, Vomiting Musculoskeletal: positive: Joint pain (Right hip pain) All Other Systems: positive: Other (Review of systems is limited due to his TBI.) - Other Other Information/Narrative: Patient is a 75-year-old male whose history includes CAD, history of an MD date unknown, diabetes, seizure disorder on multiple meds, hypertension on lisin opril and neuro glioma surgery some years ago Who is postop day 2 after right hip hemiarthroplasty for femoral neck fracture performed Dr Chance Aiken at [facility] on 11/07/2020.Patient is a mediocre historian after brain surgery. He does report some pain in his right hip there has been a small amount of blood draining from the inferior part of his surgical incision. Denies any signs or symptoms of infection, his pain is moderately controlled. Patient has suffered seizures as recently as yesterday. Pt Being comanaged by the hospitalist. Objective - Patient Data Vital Signs: Vital Signs x48h Temp Pulse Resp BP Pulse Ox 11/09/21 16:12 36.7 C 69 18 111/56 L 99 Weight: Weight 11/07/21 11/08/21 11/09/21 23:59 23:59 23:59 Weight (kg) 89.3 kg Intake & Output: Intake and Output Totals x24h 11/07/21 11/08/21 11/09/21 23:59 23:59 23:59 Intake Total 460 700 360 Output Total 650 1025 250 Balance -190 -325 110 - Lab Results Lab Results: 11/09/21 07:21 11/09/21 07:21 Other Lab Results: Lab Results x24hrs 11/09/21 11/09/21 11/09/21 Range/Units 16:02 11:04 07:39 WBC (4.8-10.8) x10^3/uL RBC (4.70-6.10) 10^6/uL Hgb (14.0-18.0) g/dL Hct (42.0-52.0) % MCV (80.0-94.0) fL MCH (27.0-31.0) pg MCHC (32.0-36.0) g/dL RDW (12.0-15.0) % Plt Count (130-450) 10^3/uL MPV (7.4-11.4) fL Neut # (Auto) (1.5-6.6) 10^3/uL Lymph # (Auto) (1.5-3.5) 10^3/uL [place] # (Auto) (0.0-1.0) 10^3/uL Eos # (Auto) (0.0-0.7) 10^3/uL Baso # (Auto) (0.0-0.1) 10^3/uL Absolute Nucleated RBC x10^3/uL Nucleated RBC % /100WBC Sodium (135-145) mmol/L Potassium (3.5-5.0) mmol/L Chloride (101-111) mmol/L Carbon Dioxide (21-32) mmol/L Anion Gap (6-13) BUN (6-20) mg/dL Creatinine (0.6-1.2) mg/dL Estimated GFR (MDRD) (>89) Glucose (70-100) mg/dL POC Whole Bld Glucose 214 H 219 H 175 H (70 - 100) mg/dL Calcium (8.5-10.3) mg/dL 11/09/21 11/09/21 Range/Units 07:21 07:21 WBC 6.6 (4.8-10.8) x10^3/uL RBC 3.95 L (4.70-6.10) 10^6/uL Hgb 11.9 L (14.0-18.0) g/dL Hct 36.2 L (42.0-52.0) % MCV 91.6 (80.0-94.0) fL MCH 30.1 (27.0-31.0) pg MCHC 32.9 (32.0-36.0) g/dL RDW 13.4 (12.0-15.0) % Plt Count 191 (130-450) 10^3/uL MPV 9.7 (7.4-11.4) fL Neut # (Auto) 4.2 (1.5-6.6) 10^3/uL Lymph # (Auto) 1.2 L (1.5-3.5) 10^3/uL [place] # (Auto) 0.8 (0.0-1.0) 10^3/uL Eos # (Auto) 0.3 (0.0-0.7) 10^3/uL Baso # (Auto) 0.0 (0.0-0.1) 10^3/uL Absolute Nucleated RBC 0.00 x10^3/uL Nucleated RBC % 0.0 /100WBC Sodium 135 (135-145) mmol/L Potassium 4.3 (3.5-5.0) mmol/L Chloride 102 (101-111) mmol/L Carbon Dioxide 24 (21-32) mmol/L Anion Gap 9.0 (6-13) BUN 15 (6-20) mg/dL Creatinine 1.0 (0.6-1.2) mg/dL Estimated GFR (MDRD) 73 L (>89) Glucose 150 H (70-100) mg/dL POC Whole Bld Glucose (70 - 100) mg/dL Calcium 8.5 (8.5-10.3) mg/dL - Imaging Results Radiology Imaging: positive: EMP read indepedently (Postop x-rays of the pelvis show postsurgical changes of a hip hemiarthroplasty with good anatomical alignment no apparent hardware loosening.) - Current Medications Current Medications: Current Medications Generic Name Dose Route Start Last Admin Trade Name Freq PRN Reason Stop Dose Admin Acetaminophen 650 mg 11/06/21 21:18 11/09/21 10:29 Acetaminophen 325 Mg Tablet PO 650 mg Q4HR PRN Administration Pain 1 to 4 Aspirin 81 mg 11/08/21 09:00 11/09/21 08:38 Aspirin Ec 81 Mg Tablet PO 81 mg DAILY JAKE Administration Atorvastatin Calcium 20 mg 11/06/21 23:00 11/08/21 20:59 Atorvastatin 10 Mg Tablet PO 20 mg QPM JAKE Administration Enoxaparin Sodium 40 mg 11/08/21 13:00 11/09/21 08:39 Enoxaparin 40 Mg/0.4 Ml Syringe SUBQ 40 mg DAILY JAKE Administration Finasteride 5 mg 11/08/21 09:00 11/09/21 08:38 Finasteride 5 Mg Tablet PO 5 mg DAILY JAKE Administration Insulin Aspart 3 - 11 unit 11/09/21 12:00 11/09/21 12:03 Insulin Aspart 300 Unit/3 Ml Pen SUBQ 5 unit 0800,1200,1700,2100 JAKE Administration Protocol Insulin Glargine 5 unit 11/06/21 21:24 11/08/21 21:00 Insulin Glargine 300 Unit/3 Ml Pen SUBQ 5 unit QPM JAKE Administration Lamotrigine 25 mg 11/06/21 22:00 11/09/21 08:38 Lamotrigine 25 Mg Tablet PO 25 mg BID JAKE Administration Lamotrigine 200 mg 11/06/21 22:00 11/09/21 08:38 Lamotrigine 100 Mg Tablet PO 200 mg BID JAKE Administration Levetiracetam 1,000 mg 11/06/21 23:00 11/09/21 08:38 Levetiracetam 250 Mg Tablet PO 1,000 mg BID JAKE Administration Metoprolol Succinate 12.5 mg 11/06/21 22:00 11/09/21 08:39 Metoprolol Succinate 25 Mg Tablet PO 12.5 mg BID JAKE Administration Oxycodone HCl 10 mg 11/06/21 21:18 11/09/21 10:29 Oxycodone 5 Mg Tablet PO 10 mg Q4HR PRN Administration Pain 8 to 10 Phenytoin Sodium 300 mg 11/07/21 09:00 11/09/21 08:39 Phenytoin Er 100 Mg Capsule PO 300 mg DAILY JAKE Administration Phenytoin Sodium 400 mg 11/06/21 23:00 11/08/21 21:00 Phenytoin Er 100 Mg Capsule PO 400 mg QPM JAKE Administration Polyethylene Glycol 17 gm 11/09/21 10:00 11/09/21 10:29 Polyethylene Glycol 3350 17 Gm Packet PO 17 gm DAILY JAKE Administration Sodium Chloride 10 ml 11/06/21 21:18 11/08/21 16:44 Sodium Chloride Flush 0.9% 10 Ml Syringe IVP 10 ml PRN PRN Administration NEEDED PER PROVIDER ORDERS Sodium Chloride 10 ml 11/07/21 01:00 11/09/21 08:39 Sodium Chloride Flush 0.9% 10 Ml Syringe IVP 10 ml 0100,0900,1700 JAKE Administration Tamsulosin HCl 0.4 mg 11/08/21 09:00 11/09/21 08:38 Tamsulosin 0.4 Mg Capsule PO 0.4 mg DAILY JAKE Administration Topiramate 50 mg 11/06/21 23:00 11/09/21 08:39 Topiramate 25 Mg Tablet PO 50 mg BID JAKE Administration - Physical Exam Wound/Incisions: positive: Drainage (Some blood spotting, see above) General Appearance: positive: No acute distress Respiratory: positive: No respiratory distress Skin: positive: Color nml, No rash, Warm, Dry Extremities: positive: Other (Patient is tender in the right hip, Some minor pain on movement.) Neurologic/Psychiatric: positive: Motor nml, Sensation nml ABX Reporting Has patient been on IV antibiotics over the past 48 hours?: Yes Impression/Plan - Problem List Problem List: Patient is a 75-year-old male who is postop day 3 after right hip hemiarthroplasty after femoral neck fracture. Patient is weightbearing as tolerated in front wheeled walker, he can continue to get PT OT services while in hospital. Patient's pain is moderately well controlled, shows no signs or symptoms of infection. Minor drainage from incision not a concern for major bleeding or hematoma currently. He is cleared for discharge from an orthopedic surgery standpoint. He can follow-up in the orthopedic clinic in [place] approximately 7 days after discharge. Patient should be taking 81 mg of aspirin twice daily for blood clot prevention for total of 6 weeks.
[2021-11-09] MEDS ORDERED: INSULIN GLARGINE 300 UNIT/3 ML PEN SUBQ SCH (21:00)
[2021-11-09] MEDS: ATORVASTATIN 10 MG TABLET PO SCH (21:49)
[2021-11-10] MEDS: SODIUM CHLORIDE FLUSH 0.9% 10 ML SYRINGE IVP SCH ×3 (00:51→17:14)
[2021-11-10] MEDS: KETOROLAC 15 MG/ML VIAL IVP PRN ×3 (00:58→19:24)
[2021-11-10] MEDS: oxyCODONE 5 MG TABLET PO PRN (04:54)
[2021-11-10 05:57] LABS: BASOPHILS % (AUTO) 0.3 %; EOSINOPHILS # (AUTO) 0.3 10^3/uL (0.0-0.7); EOSINOPHILS % (AUTO) 5.2 %; HCT - HEMATOCRIT 33.3 % (42.0-52.0); HGB - HEMOGLOBIN 10.9 g/dL (14.0-18.0); LYMPHOCYTES # (AUTO) 1.4 10^3/uL (1.5-3.5); LYMPHOCYTES % (AUTO) 21.1 %; MEAN CORPUSCULAR HEMOGLOBIN 29.9 pg (27.0-31.0); MEAN CORPUSCULAR HGB CONC 32.7 g/dL (32.0-36.0); MEAN CORPUSCULAR VOLUME 91.5 fL (80.0-94.0); MEAN PLATELET VOLUME 10.1 fL (7.4-11.4); NEUTROPHILS # (AUTO) 3.7 10^3/uL (1.5-6.6); NEUTROPHILS % (AUTO) 57.1 %; PLT - PLATELET COUNT 214 10^3/uL (130-450); RED BLOOD COUNT 3.64 10^6/uL (4.70-6.10); RED CELL DISTRIBUTION WIDTH 13.4 % (12.0-15.0); WHITE BLOOD COUNT 6.5 x10^3/uL (4.8-10.8)
[2021-11-10 06:08] LABS: CALCIUM 8.4 mg/dL (8.5-10.3); CREATININE 1.2 mg/dL (0.6-1.2)
[2021-11-10] MEDS: INSULIN ASPART 300 UNIT/3 ML PEN SUBQ SCH ×4 (08:10→21:07)
[2021-11-10] MEDS: ENOXAPARIN 40 MG/0.4 ML SYRINGE SUBQ SCH (08:13)
[2021-11-10] MEDS: lamoTRIgine 100 MG TABLET PO SCH ×2 (08:14→21:06)
[2021-11-10] MEDS: TAMSULOSIN 0.4 MG CAPSULE PO SCH (08:14)
[2021-11-10] MEDS: TOPIRAMATE 25 MG TABLET PO SCH ×2 (08:14→21:05)
[2021-11-10] MEDS: polyethylene glycoL 3350 17 GM PACKET PO SCH (08:14)
[2021-11-10] MEDS: ASPIRIN EC 81 MG TABLET PO SCH (08:14)
[2021-11-10] MEDS: lamoTRIgine 25 MG TABLET PO SCH ×2 (08:15→21:07)
[2021-11-10] MEDS: FINASTERIDE 5 MG TABLET PO SCH (08:15)
[2021-11-10] MEDS: levETIRAcetam 250 MG TABLET PO SCH ×2 (08:15→21:06)
[2021-11-10] MEDS: PHENYTOIN ER 100 MG CAPSULE PO SCH ×2 (08:15→21:06)
[2021-11-10] MEDS: METOPROLOL SUCCINATE 25 MG TABLET PO SCH ×2 (08:15→21:06)
[2021-11-10] MEDS: SODIUM CHLORIDE 0.9% 1,000 ML IV SCH ×2 (09:25→19:23)
[2021-11-10] MEDS: ONDANSETRON 4 MG/2 ML VIAL IVP PRN (12:35)
--- NOTE | 2021-11-10 13:20 | PROVIDER PROGRESS NOTE ---
Assessment/Plan - Problem List (1) Closed right hip fracture Qualifiers: Encounter type: initial encounter Qualified Code(s): S72.001A - Fracture of unspecified part of neck of right femur, initial encounter for closed fracture Assessment/Plan: 1-6 day 3 s/p of right hip repair, continue pain control, PT/OT, consult with social services aide for placement planning. 1-5 day 2 status post of right hip repair. continue physical therapist and occupational therapist, continue pain control, Lovenox for DVT prophylaxis. Consult with social work for disposition planning, 14 D1 status post of right hip repair. We will continue physical therapist and occupational therapist, continue pain control, Add Lovenox for DVT prophylaxis. Consult with social work for disposition planning, Appreciate orthopedic surgery input. (2) Seizure disorder 1-6 no seizure and controlled. 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 Will resume four patient seizure medications, will also check 3 of the 4 seizure medication serum concentration, Add Ativan as needed for seizure (3) History of coronary artery disease Conclusion/Plan: stable. We will continue his home aspirin, statin, beta-viral. We will check a preop EKG. 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 (5) Type 2 diabetes mellitus Conclusion/Plan: He is on glipizide and Metformin at home. We will start him on Lantus this evening and slid scale. We will start him on a carb controlled diet postoperatively. Continue blood glucose monitoring and sliding scale. - Current Meds Current Meds: Current Medications Generic Name Dose Route Start Last Admin Trade Name Freq PRN Reason Stop Dose Admin Acetaminophen 650 mg 11/06/21 21:18 11/09/21 10:29 Acetaminophen 325 Mg Tablet PO 650 mg Q4HR PRN Administration Pain 1 to 4 Aspirin 81 mg 11/08/21 09:00 11/10/21 08:14 Aspirin Ec 81 Mg Tablet PO 81 mg DAILY JAKE Administration Atorvastatin Calcium 20 mg 11/06/21 23:00 11/09/21 21:49 Atorvastatin 10 Mg Tablet PO 20 mg QPM JAKE Administration Enoxaparin Sodium 40 mg 11/08/21 13:00 11/10/21 08:13 Enoxaparin 40 Mg/0.4 Ml Syringe SUBQ 40 mg DAILY JAKE Administration Finasteride 5 mg 11/08/21 09:00 11/10/21 08:15 Finasteride 5 Mg Tablet PO 5 mg DAILY JAKE Administration Sodium Chloride 1,000 mls @ 100 mls/hr 11/10/21 08:00 11/10/21 09:25 Normal Saline 0.9% IV 11/11/21 03:59 100 mls/hr .Q10H JAKE Administration Insulin Aspart 3 - 11 unit 11/09/21 12:00 11/10/21 11:58 Insulin Aspart 300 Unit/3 Ml Pen SUBQ 3 unit 0800,1200,1700,2100 JAKE Administration Protocol Insulin Glargine 8 unit 11/09/21 21:00 11/09/21 21:48 Insulin Glargine 300 Unit/3 Ml Pen SUBQ 8 unit QPM JAKE Administration Ketorolac Tromethamine 15 mg 11/09/21 13:15 11/10/21 12:35 Ketorolac 15 Mg/Ml Vial IVP 11/14/21 13:14 15 mg Q6HR PRN Administration PAIN Lamotrigine 25 mg 11/06/21 22:00 11/10/21 08:15 Lamotrigine 25 Mg Tablet PO 25 mg BID JAKE Administration Lamotrigine 200 mg 11/06/21 22:00 11/10/21 08:14 Lamotrigine 100 Mg Tablet PO 200 mg BID JAKE Administration Levetiracetam 1,000 mg 11/06/21 23:00 11/10/21 08:15 Levetiracetam 250 Mg Tablet PO 1,000 mg BID [facility] Administration Metoprolol Succinate 12.5 mg 11/06/21 22:00 11/10/21 08:15 Metoprolol Succinate 25 Mg Tablet PO Not Given BID [facility] Ondansetron HCl 4 mg 11/06/21 21:18 11/10/21 12:35 Ondansetron 4 Mg/2 Ml Vial IVP 4 mg Q6HR PRN Administration Nausea / Vomiting Oxycodone HCl 10 mg 11/06/21 21:18 11/10/21 04:54 Oxycodone 5 Mg Tablet PO 10 mg Q4HR PRN Administration Pain 8 to 10 Phenytoin Sodium 300 mg 11/07/21 09:00 11/10/21 08:15 Phenytoin Er 100 Mg Capsule PO 300 mg DAILY JAKE Administration Phenytoin Sodium 400 mg 11/06/21 23:00 11/09/21 21:49 Phenytoin Er 100 Mg Capsule PO 400 mg QPM JAKE Administration Polyethylene Glycol 17 gm 11/09/21 10:00 11/10/21 08:14 Polyethylene Glycol 3350 17 Gm Packet PO 17 gm DAILY JAKE Administration Sodium Chloride 10 ml 11/06/21 21:18 11/08/21 16:44 Sodium Chloride Flush 0.9% 10 Ml Syringe IVP 10 ml PRN PRN Administration NEEDED PER PROVIDER ORDERS Sodium Chloride 10 ml 11/07/21 01:00 11/10/21 09:25 Sodium Chloride Flush 0.9% 10 Ml Syringe IVP 10 ml 0100,0900,1700 JAKE Administration Tamsulosin HCl 0.4 mg 11/08/21 09:00 11/10/21 08:14 Tamsulosin 0.4 Mg Capsule PO 0.4 mg DAILY JAKE Administration Topiramate 50 mg 11/06/21 23:00 11/10/21 08:14 Topiramate 25 Mg Tablet PO 50 mg BID JAKE Administration - Lab Result Fish Bone Diagrams: 11/10/21 05:31 11/10/21 05:31 - Additional Planning My Orders: My Active Orders 11/09/21 13:15 Ketorolac Inj (15Mg) [Toradol Inj (15Mg)] 15 mg IVP Q6HR PRN 11/09/21 21:00 Insulin Glargine [Lantus Solostar] 8 unit SUBQ QPM 11/10/21 08:00 Sodium Chloride 0.9% [Normal Saline 0.9%] 1,000 ml IV 100 mls/hr 11/10/21 11:14 VITAMIN D,25-OH,TOTAL,IA [REFLAB] Routine Subjective - Subjective Patient Reports: Resting Comfortably Objective Vital Signs: Vital Signs - 24 hr 11/09/21 11/10/21 11/10/21 16:12 00:11 08:00 Temperature 36.7 C 37.4 C 36.7 C Heart Rate [ 69 84 76 Brachial] Respiratory 18 24 20 Rate Blood Pressure 99/60 [Left Brachial artery] Blood Pressure 111/56 L 107/55 L [Right Brachial artery] O2 Saturation 99 94 98 Oxygen O2 Source [With Activity] Room air O2 Source Room air I&O (Last 24 Hrs): Intake and Output Totals x24h 11/08/21 11/09/21 11/10/21 23:59 23:59 23:59 Intake Total 700 710 716 Output Total 1025 250 200 Balance -325 460 516 General: Alert, No acute distress HEENT: Atraumatic Neck: Supple Lymphatic: no adenopathy Neuro: Alert, Non Focal Cardiovascular: Regular rate, Normal S1, Normal S2 Respiratory: Chest non-tender, No respiratory distress Abdomen: Normal bowel sounds, Soft Extremities: Normal pulses - Results Results: Laboratory Results WBC 6.5 x10^3/uL (4.8-10.8) 11/10/21 05:31 RBC 3.64 10^6/uL (4.70-6.10) L 11/10/21 05:31 Hgb 10.9 g/dL (14.0-18.0) L 11/10/21 05:31 Hct 33.3 % (42.0-52.0) L 11/10/21 05:31 MCV 91.5 fL (80.0-94.0) 11/10/21 05:31 MCH 29.9 pg (27.0-31.0) 11/10/21 05:31 MCHC 32.7 g/dL (32.0-36.0) 11/10/21 05:31 RDW 13.4 % (12.0-15.0) 11/10/21 05:31 Plt Count 214 10^3/uL (130-450) 11/10/21 05:31 MPV 10.1 fL (7.4-11.4) 11/10/21 05:31 Neut # (Auto) 3.7 10^3/uL (1.5-6.6) 11/10/21 05:31 Lymph # (Auto) 1.4 10^3/uL (1.5-3.5) L 11/10/21 05:31 [place] # (Auto) 1.0 10^3/uL (0.0-1.0) 11/10/21 05:31 Eos # (Auto) 0.3 10^3/uL (0.0-0.7) 11/10/21 05:31 Baso # (Auto) 0.0 10^3/uL (0.0-0.1) 11/10/21 05:31 Absolute Nucleated RBC 0.00 x10^3/uL 11/10/21 05:31 Nucleated RBC % 0.0 /100WBC 11/10/21 05:31 PT 11.7 secs (9.9-12.6) 11/06/21 21:20 INR 1.1 (0.8-1.2) 11/06/21 21:20 APTT 25.3 secs (24.9-33.3) 11/06/21 21:20 Sodium 132 mmol/L (135-145) L 11/10/21 05:31 Potassium 4.0 mmol/L (3.5-5.0) 11/10/21 05:31 Chloride 100 mmol/L (101-111) L 11/10/21 05:31 Carbon Dioxide 23 mmol/L (21-32) 11/10/21 05:31 Anion Gap 9.0 (6-13) 11/10/21 05:31 BUN 21 mg/dL (6-20) H 11/10/21 05:31 Creatinine 1.2 mg/dL (0.6-1.2) 11/10/21 05:31 Estimated GFR (MDRD) 59 (>89) L 11/10/21 05:31 Glucose 196 mg/dL (70-100) H 11/10/21 05:31 POC Whole Bld Glucose 179 mg/dL (70 - 100) H 11/10/21 11:10 Estimat Average Glucose 126 mg/dL (70-100) H 11/08/21 06:45 Hemoglobin A1c % 6.0 % (4.27-6.07) 11/08/21 06:45 Calcium 8.4 mg/dL (8.5-10.3) L 11/10/21 05:31 Total Bilirubin 0.5 mg/dL (0.2-1.0) 11/06/21 21:20 AST 35 IU/L (10-42) 11/06/21 21:20 ALT 39 IU/L (10-60) 11/06/21 21:20 Alkaline Phosphatase 91 IU/L (42-121) 11/06/21 21:20 Total Protein 8.7 g/dL (6.7-8.2) H 11/06/21 21:20 Albumin 4.4 g/dL (3.2-5.5) 11/06/21 21:20 Globulin 4.3 g/dL (2.1-4.2) H 11/06/21 21:20 Albumin/Globulin Ratio 1.0 (1.0-2.2) 11/06/21 21:20 Lipase 38 U/L (22-51) 11/06/21 21:20 Urine Color DARK YELLOW 11/06/21 21:12 Urine Clarity CLEAR (CLEAR) 11/06/21 21:12 Urine pH 6.0 PH (5.0-7.5) 11/06/21 21:12 Ur Specific [place] 1.020 (1.002-1.030) 11/06/21 21:12 Urine Protein TRACE mg/dL (NEGATIVE) 11/06/21 21:12 Urine Glucose (UA) 100 mg/dL (NEGATIVE) H 11/06/21 21:12 Urine Ketones NEGATIVE mg/dL (NEGATIVE) 11/06/21 21:12 Urine Occult Blood NEGATIVE (NEGATIVE) 11/06/21 21:12 Urine Nitrite NEGATIVE (NEGATIVE) 11/06/21 21:12 Urine Bilirubin NEGATIVE (NEGATIVE) 11/06/21 21:12 Urine Urobilinogen 0.2 (NORMAL) E.U./dL (NORMAL) 11/06/21 21:12 Ur Leukocyte Esterase NEGATIVE (NEGATIVE) 11/06/21 21:12 Ur Microscopic Review NOT INDICATED 11/06/21 21:12 Urine Culture Comments NOT INDICATED 11/06/21 21:12 Nasal Adenovirus (PCR) NOT DETECTED 11/06/21 20:35 Nasal B. parapertussis DNA (PCR) NOT DETECTED 11/06/21 20:35 Nasal Coronavir 229E PCR NOT DETECTED 11/06/21 20:35 Nasal Coronavir HKU1 PCR NOT DETECTED 11/06/21 20:35 Nasal Coronavir NL63 PCR NOT DETECTED 11/06/21 20:35 Nasal Coronavir OC43 PCR NOT DETECTED 11/06/21 20:35 Nasal Enterovir/Rhinovir PCR NOT DETECTED 11/06/21 20:35 Nasal Influenza B PCR NOT DETECTED 11/06/21 20:35 Nasal Influenza A PCR NOT DETECTED 11/06/21 20:35 Nasal Parainfluen 1 PCR NOT DETECTED 11/06/21 20:35 Nasal Parainfluen 2 PCR NOT DETECTED 11/06/21 20:35 Nasal Parainfluen 3 PCR NOT DETECTED 11/06/21 20:35 Nasal Parainfluen 4 PCR NOT DETECTED 11/06/21 20:35 Nasal RSV (PCR) NOT DETECTED 11/06/21 20:35 Nasal B.pertussis DNA PCR NOT DETECTED 11/06/21 20:35 Nasal C.pneumoniae (PCR) NOT DETECTED 11/06/21 20:35 Akhil Human Metapneumo PCR NOT DETECTED 11/06/21 20:35 Nasal M.pneumoniae (PCR) NOT DETECTED 11/06/21 20:35 Nasal SARS-CoV-2 (PCR) NOT DETECTED 11/06/21 20:35 Phenytoin 25.4 ug/mL 11/08/21 08:39 - Procedures Procedures: Procedures EXCISION OF ASCENDING COLON, ENDO (03/29/17) EXCISION OF DESCENDING COLON, ENDO (03/29/17) EXCISION OF RECTUM, ENDO (03/29/17) INSERTION OF INFUSION DEV INTO SUP VENA CAVA, PERC APPROACH (11/05/17) ABX Reporting Has patient been on IV antibiotics over the past 48 hours?: No Current Medications - Current Medications Current Medications: Active Medications Acetaminophen (Acetaminophen 325 Mg Tablet) 650 mg PO Q4HR PRN PRN Reason: Pain 1 to 4 Last Admin: 11/09/21 10:29 Dose: 650 mg Aspirin (Aspirin Ec 81 Mg Tablet) 81 mg PO DAILY [facility] Last Admin: 11/10/21 08:14 Dose: 81 mg Atorvastatin Calcium (Atorvastatin 10 Mg Tablet) 20 mg PO QPM [facility] Last Admin: 11/09/21 21:49 Dose: 20 mg Enoxaparin Sodium (Enoxaparin 40 Mg/0.4 Ml Syringe) 40 mg SUBQ DAILY [facility] Last Admin: 11/10/21 08:13 Dose: 40 mg Finasteride (Finasteride 5 Mg Tablet) 5 mg PO DAILY [facility] Last Admin: 11/10/21 08:15 Dose: 5 mg Sodium Chloride (Normal Saline 0.9%) 1,000 mls @ 100 mls/hr IV .Q10H [facility] Stop: 11/11/21 03:59 Last Admin: 11/10/21 09:25 Dose: 100 mls/hr Insulin Aspart (Insulin Aspart 300 Unit/3 Ml Pen) 3 - 11 unit SUBQ 0800,1200,1700,2100 [facility]; Protocol Last Admin: 11/10/21 11:58 Dose: 3 unit Insulin Glargine (Insulin Glargine 300 Unit/3 Ml Pen) 8 unit SUBQ QPM [facility] Last Admin: 11/09/21 21:48 Dose: 8 unit Ketorolac Tromethamine (Ketorolac 15 Mg/Ml Vial) 15 mg IVP Q6HR PRN PRN Reason: PAIN Stop: 11/14/21 13:14 Last Admin: 11/10/21 12:35 Dose: 15 mg Lamotrigine (Lamotrigine 25 Mg Tablet) 25 mg PO BID [facility] Last Admin: 11/10/21 08:15 Dose: 25 mg Lamotrigine (Lamotrigine 100 Mg Tablet) 200 mg PO BID [facility] Last Admin: 11/10/21 08:14 Dose: 200 mg Levetiracetam (Levetiracetam 250 Mg Tablet) 1,000 mg PO BID [facility] Last Admin: 11/10/21 08:15 Dose: 1,000 mg Lorazepam (Lorazepam 2 Mg/Ml Vial) 2 mg IVP Q2H PRN PRN Reason: Seizure Metoprolol Succinate (Metoprolol Succinate 25 Mg Tablet) 12.5 mg PO BID [facility] Last Admin: 11/10/21 08:15 Dose: Not Given Morphine Sulfate (Morphine 2 Mg/Ml Carpuject) 2 mg IVP Q2HR PRN PRN Reason: Pain 8 to 10 Ondansetron HCl (Ondansetron Odt 4 Mg Tablet) 4 mg TL Q6HR PRN PRN Reason: Nausea / Vomiting Ondansetron HCl (Ondansetron 4 Mg/2 Ml Vial) 4 mg IVP Q6HR PRN PRN Reason: Nausea / Vomiting Last Admin: 11/10/21 12:35 Dose: 4 mg Oxycodone HCl (Oxycodone 5 Mg Tablet) 10 mg PO Q4HR PRN PRN Reason: Pain 8 to 10 Last Admin: 11/10/21 04:54 Dose: 10 mg Phenytoin Sodium (Phenytoin Er 100 Mg Capsule) 300 mg PO DAILY [facility] Last Admin: 11/10/21 08:15 Dose: 300 mg Phenytoin Sodium (Phenytoin Er 100 Mg Capsule) 400 mg PO QPM [facility] Last Admin: 11/09/21 21:49 Dose: 400 mg Polyethylene Glycol (Polyethylene Glycol 3350 17 Gm Packet) 17 gm PO DAILY [facility] Last Admin: 11/10/21 08:14 Dose: 17 gm Sodium Chloride (Sodium Chloride Flush 0.9% 10 Ml Syringe) 10 ml IVP PRN PRN PRN Reason: NEEDED PER PROVIDER ORDERS Last Admin: 11/08/21 16:44 Dose: 10 ml Sodium Chloride (Sodium Chloride Flush 0.9% 10 Ml Syringe) 10 ml IVP 0100,0900,1700 [facility] Last Admin: 11/10/21 09:25 Dose: 10 ml Tamsulosin HCl (Tamsulosin 0.4 Mg Capsule) 0.4 mg PO DAILY [facility] Last Admin: 11/10/21 08:14 Dose: 0.4 mg Topiramate (Topiramate 25 Mg Tablet) 50 mg PO BID [facility] Last Admin: 11/10/21 08:14 Dose: 50 mg Phenytoin Sodium Extended [Dilantin] 300 mg PO DAILY 05/18/13 glipiZIDE ER [Glucotrol Xl] 2.5 mg PO DAILY 12/19/17 Metoprolol Succinate 12.5 mg PO BID 09/04/18
[2021-11-10] MEDS: ATORVASTATIN 10 MG TABLET PO SCH (21:05)
[2021-11-10] MEDS: INSULIN GLARGINE 300 UNIT/3 ML PEN SUBQ SCH (21:08)
[2021-11-11] MEDS: SODIUM CHLORIDE FLUSH 0.9% 10 ML SYRINGE IVP SCH ×3 (00:33→17:13)
[2021-11-11 07:23] LABS: CALCIUM 8.4 mg/dL (8.5-10.3); POTASSIUM 4.1 mmol/L (3.5-5.0)
[2021-11-11 07:26] LABS: BASOPHILS % (AUTO) 0.5 %; EOSINOPHILS # (AUTO) 0.4 10^3/uL (0.0-0.7); EOSINOPHILS % (AUTO) 6.3 %; HCT - HEMATOCRIT 34.5 % (42.0-52.0); HGB - HEMOGLOBIN 11.3 g/dL (14.0-18.0); LYMPHOCYTES % (AUTO) 17.1 %; MEAN CORPUSCULAR HEMOGLOBIN 30.2 pg (27.0-31.0); MEAN CORPUSCULAR HGB CONC 32.8 g/dL (32.0-36.0); MEAN CORPUSCULAR VOLUME 92.2 fL (80.0-94.0); MONOCYTES # (AUTO) 0.9 10^3/uL (0.0-1.0); MONOCYTES % (AUTO) 15.2 %; NEUTROPHILS # (AUTO) 3.6 10^3/uL (1.5-6.6); NEUTROPHILS % (AUTO) 60.6 %; PLT - PLATELET COUNT 260 10^3/uL (130-450); RED BLOOD COUNT 3.74 10^6/uL (4.70-6.10); RED CELL DISTRIBUTION WIDTH 13.2 % (12.0-15.0); WHITE BLOOD COUNT 5.9 x10^3/uL (4.8-10.8)
[2021-11-11] MEDS ORDERED: CHOLECALCIFEROL 400 UNIT TABLET PO SCH (09:00)
[2021-11-11] MEDS: CALCIUM CARBONATE CHEW 500 MG TABLET PO SCH ×2 (10:54→20:43)
[2021-11-11] MEDS: polyethylene glycoL 3350 17 GM PACKET PO SCH (10:55)
[2021-11-11] MEDS: CHOLECALCIFEROL 25 MCG TABLET PO SCH (10:56)
[2021-11-11] MEDS: SENNA 8.6 MG TABLET PO SCH (10:57)
[2021-11-11] MEDS: TOPIRAMATE 25 MG TABLET PO SCH ×2 (10:58→20:43)
[2021-11-11] MEDS: lamoTRIgine 100 MG TABLET PO SCH ×2 (10:59→20:43)
[2021-11-11] MEDS: lamoTRIgine 25 MG TABLET PO SCH ×2 (10:59→20:44)
[2021-11-11] MEDS: ASPIRIN EC 81 MG TABLET PO SCH (11:01)
[2021-11-11] MEDS: PHENYTOIN ER 100 MG CAPSULE PO SCH ×2 (11:02→20:43)
[2021-11-11] MEDS: TAMSULOSIN 0.4 MG CAPSULE PO SCH (11:04)
[2021-11-11] MEDS: FINASTERIDE 5 MG TABLET PO SCH (11:05)
[2021-11-11] MEDS: METOPROLOL SUCCINATE 25 MG TABLET PO SCH ×2 (11:06→20:44)
[2021-11-11] MEDS: INSULIN ASPART 300 UNIT/3 ML PEN SUBQ SCH ×4 (11:06→20:46)
[2021-11-11] MEDS: DOCUSATE SODIUM 250 MG CAPSULE PO SCH (11:07)
[2021-11-11] MEDS: ENOXAPARIN 40 MG/0.4 ML SYRINGE SUBQ SCH (11:08)
[2021-11-11] MEDS: LACTATED RINGERS 1,000 ML IV SCH ×2 (11:09→20:52)
[2021-11-11] MEDS: levETIRAcetam 250 MG TABLET PO SCH ×2 (11:13→20:43)
--- NOTE | 2021-11-11 12:33 | PROVIDER PROGRESS NOTE ---
Assessment/Plan - Problem List (1) Closed right hip fracture Qualifiers: Encounter type: initial encounter Qualified Code(s): S72.001A - Fracture of unspecified part of neck of right femur, initial encounter for closed fracture Assessment/Plan: 1-7, day 4 of right hip repair, stable. consulted with social work specialist for SNF, continue pain control, PT/OT. 1-6 day 3 s/p of right hip repair, continue pain control, PT/OT, consult with social work specialist for placement planning. 1-5 day 2 status post of right hip repair. continue physical therapist and occupational therapist, continue pain control, Lovenox for DVT prophylaxis. Consult with social work for disposition planning, 14 D1 status post of right hip repair. We will continue physical therapist and occupational therapist, continue pain control, Add Lovenox for DVT prophylaxis. Consult with social work for disposition planning, Appreciate orthopedic surgery input. (2) Seizure disorder 1-6 no seizure and controlled. 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 Will resume four patient seizure medications, will also check 3 of the 4 seizure medication serum concentration, Add Ativan as needed for seizure (3) History of coronary artery disease Conclusion/Plan: stable. We will continue his home aspirin, statin, beta-viral. We will check a preop EKG. 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 (5) Type 2 diabetes mellitus Conclusion/Plan: He is on glipizide and Metformin at home. We will start him on Lantus this evening and slid scale. We will start him on a carb controlled diet postoperatively. Continue blood glucose monitoring and sliding scale. - Current Meds Current Meds: Current Medications Generic Name Dose Route Start Last Admin Trade Name Freq PRN Reason Stop Dose Admin Acetaminophen 650 mg 11/06/21 21:18 11/09/21 10:29 Acetaminophen 325 Mg Tablet PO 650 mg Q4HR PRN Administration Pain 1 to 4 Aspirin 81 mg 11/08/21 09:00 11/11/21 11:01 Aspirin Ec 81 Mg Tablet PO 81 mg DAILY JAKE Administration Atorvastatin Calcium 20 mg 11/06/21 23:00 11/10/21 21:05 Atorvastatin 10 Mg Tablet PO 20 mg QPM JAKE Administration Calcium Carbonate/Glycine 500 mg 11/11/21 10:00 11/11/21 10:54 Calcium Carbonate Chew 500 Mg Tablet PO 500 mg BID JAKE Administration Cholecalciferol 50 mcg 11/11/21 09:00 11/11/21 10:56 Cholecalciferol 25 Mcg Tablet PO 50 mcg DAILY JAKE Administration Docusate Sodium 250 - 500 mg 11/11/21 11:00 11/11/21 11:07 Docusate Sodium 250 Mg Capsule PO 250 mg DAILY JAKE Administration Enoxaparin Sodium 40 mg 11/08/21 13:00 11/11/21 11:08 Enoxaparin 40 Mg/0.4 Ml Syringe SUBQ 40 mg DAILY JAKE Administration Finasteride 5 mg 11/08/21 09:00 11/11/21 11:05 Finasteride 5 Mg Tablet PO 5 mg DAILY JAKE Administration Lactated Ringer's 1,000 mls @ 83.333 mls/hr 11/11/21 08:00 11/11/21 11:09 Lr IV 11/12/21 07:59 83.333 mls/hr .Q12H JAKE Administration Insulin Aspart 3 - 11 unit 11/09/21 12:00 11/11/21 11:21 Insulin Aspart 300 Unit/3 Ml Pen SUBQ 5 unit 0800,1200,1700,2100 JAKE Administration Protocol Insulin Glargine 10 unit 11/10/21 21:00 11/10/21 21:08 Insulin Glargine 300 Unit/3 Ml Pen SUBQ 10 unit QPM JAKE Administration Ketorolac Tromethamine 15 mg 11/09/21 13:15 11/10/21 19:24 Ketorolac 15 Mg/Ml Vial IVP 11/14/21 13:14 15 mg Q6HR PRN Administration PAIN Lamotrigine 25 mg 11/06/21 22:00 11/11/21 10:59 Lamotrigine 25 Mg Tablet PO 25 mg BID JAKE Administration Lamotrigine 200 mg 11/06/21 22:00 11/11/21 10:59 Lamotrigine 100 Mg Tablet PO 200 mg BID JAKE Administration Levetiracetam 1,000 mg 11/06/21 23:00 11/11/21 11:13 Levetiracetam 250 Mg Tablet PO 1,000 mg BID JAKE Administration Metoprolol Succinate 12.5 mg 11/06/21 22:00 11/11/21 11:06 Metoprolol Succinate 25 Mg Tablet PO 12.5 mg BID JAKE Administration Ondansetron HCl 4 mg 11/06/21 21:18 11/10/21 12:35 Ondansetron 4 Mg/2 Ml Vial IVP 4 mg Q6HR PRN Administration Nausea / Vomiting Oxycodone HCl 10 mg 11/06/21 21:18 11/10/21 04:54 Oxycodone 5 Mg Tablet PO 10 mg Q4HR PRN Administration Pain 8 to 10 Phenytoin Sodium 300 mg 11/07/21 09:00 11/11/21 11:02 Phenytoin Er 100 Mg Capsule PO 300 mg DAILY JAKE Administration Phenytoin Sodium 400 mg 11/06/21 23:00 11/10/21 21:06 Phenytoin Er 100 Mg Capsule PO 400 mg QPM JAKE Administration Polyethylene Glycol 17 gm 11/09/21 10:00 11/11/21 10:55 Polyethylene Glycol 3350 17 Gm Packet PO 17 gm DAILY JAKE Administration Senna 8.6 - 17.2 mg 11/11/21 11:00 11/11/21 10:57 Senna 8.6 Mg Tablet PO 8.6 mg DAILY JAKE Administration Sodium Chloride 10 ml 11/06/21 21:18 11/08/21 16:44 Sodium Chloride Flush 0.9% 10 Ml Syringe IVP 10 ml PRN PRN Administration NEEDED PER PROVIDER ORDERS Sodium Chloride 10 ml 11/07/21 01:00 11/11/21 11:15 Sodium Chloride Flush 0.9% 10 Ml Syringe IVP 10 ml 0100,0900,1700 JAKE Administration Tamsulosin HCl 0.4 mg 11/08/21 09:00 11/11/21 11:04 Tamsulosin 0.4 Mg Capsule PO 0.4 mg DAILY JAKE Administration Topiramate 50 mg 11/06/21 23:00 11/11/21 10:58 Topiramate 25 Mg Tablet PO 50 mg BID JAKE Administration - Lab Result Fish Bone Diagrams: 11/11/21 07:05 11/11/21 07:05 - Additional Planning My Orders: My Active Orders 11/10/21 21:00 Insulin Glargine [Lantus Solostar] 10 unit SUBQ QPM 11/11/21 08:00 Lactated Ringers [Lr] 1,000 ml IV 83.333 mls/hr 11/11/21 09:00 Cholecalciferol [Vitamin D3] 50 mcg PO DAILY 11/11/21 10:00 Calcium Carbonate [Tums] 500 mg PO BID 11/11/21 11:00 Docusate Sodium 250Mg Capsule [Colace 250Mg Capsule] 250 - 500 mg PO DAILY Senna [Senokot] 8.6 - 17.2 mg PO DAILY 11/11/21 11:30 RESPIRATORY PCR PANEL Stat Subjective - Subjective Patient Reports: Resting Comfortably Objective Vital Signs: Vital Signs - 24 hr 11/10/21 11/11/21 11/11/21 15:54 00:47 07:30 Temperature 36.8 C 36.3 C L 36.7 C Heart Rate [ 73 69 78 Brachial] Respiratory 20 16 16 Rate Blood Pressure 90/57 L [Left Brachial artery] Blood Pressure 101/56 L 104/65 [Right Brachial artery] O2 Saturation 100 100 98 Oxygen O2 Source [With Activity] Room air O2 Source Room air I&O (Last 24 Hrs): Intake and Output Totals x24h 11/09/21 11/10/21 11/11/21 23:59 23:59 23:59 Intake Total 710 2192.667 1300 Output Total 250 200 Balance 460 5159.345 3179 General: Alert, No acute distress HEENT: Atraumatic Neck: Supple Lymphatic: no adenopathy Neuro: Alert Cardiovascular: Regular rate, Normal S1, Normal S2 Respiratory: Chest non-tender, No respiratory distress Abdomen: Normal bowel sounds, Soft Extremities: Normal pulses - Results Results: Laboratory Results WBC 5.9 x10^3/uL (4.8-10.8) 11/11/21 07:05 RBC 3.74 10^6/uL (4.70-6.10) L 11/11/21 07:05 Hgb 11.3 g/dL (14.0-18.0) L 11/11/21 07:05 Hct 34.5 % (42.0-52.0) L 11/11/21 07:05 MCV 92.2 fL (80.0-94.0) 11/11/21 07:05 MCH 30.2 pg (27.0-31.0) 11/11/21 07:05 MCHC 32.8 g/dL (32.0-36.0) 11/11/21 07:05 RDW 13.2 % (12.0-15.0) 11/11/21 07:05 Plt Count 260 10^3/uL (130-450) 11/11/21 07:05 MPV 10.0 fL (7.4-11.4) 11/11/21 07:05 Neut # (Auto) 3.6 10^3/uL (1.5-6.6) 11/11/21 07:05 Lymph # (Auto) 1.0 10^3/uL (1.5-3.5) L 11/11/21 07:05 [place] # (Auto) 0.9 10^3/uL (0.0-1.0) 11/11/21 07:05 Eos # (Auto) 0.4 10^3/uL (0.0-0.7) 11/11/21 07:05 Baso # (Auto) 0.0 10^3/uL (0.0-0.1) 11/11/21 07:05 Absolute Nucleated RBC 0.00 x10^3/uL 11/11/21 07:05 Nucleated RBC % 0.0 /100WBC 11/11/21 07:05 PT 11.7 secs (9.9-12.6) 11/06/21 21:20 INR 1.1 (0.8-1.2) 11/06/21 21:20 APTT 25.3 secs (24.9-33.3) 11/06/21 21:20 Sodium 136 mmol/L (135-145) 11/11/21 07:05 Potassium 4.1 mmol/L (3.5-5.0) 11/11/21 07:05 Chloride 104 mmol/L (101-111) 11/11/21 07:05 Carbon Dioxide 24 mmol/L (21-32) 11/11/21 07:05 Anion Gap 8.0 (6-13) 11/11/21 07:05 BUN 23 mg/dL (6-20) H 11/11/21 07:05 Creatinine 1.0 mg/dL (0.6-1.2) 11/11/21 07:05 Estimated GFR (MDRD) 73 (>89) L 11/11/21 07:05 Glucose 140 mg/dL (70-100) H 11/11/21 07:05 POC Whole Bld Glucose 215 mg/dL (70 - 100) H 11/11/21 11:05 Estimat Average Glucose 126 mg/dL (70-100) H 11/08/21 06:45 Hemoglobin A1c % 6.0 % (4.27-6.07) 11/08/21 06:45 Calcium 8.4 mg/dL (8.5-10.3) L 11/11/21 07:05 Total Bilirubin 0.5 mg/dL (0.2-1.0) 11/06/21 21:20 AST 35 IU/L (10-42) 11/06/21 21:20 ALT 39 IU/L (10-60) 11/06/21 21:20 Alkaline Phosphatase 91 IU/L (42-121) 11/06/21 21:20 Total Protein 8.7 g/dL (6.7-8.2) H 11/06/21 21:20 Albumin 4.4 g/dL (3.2-5.5) 11/06/21 21:20 Globulin 4.3 g/dL (2.1-4.2) H 11/06/21 21:20 Albumin/Globulin Ratio 1.0 (1.0-2.2) 11/06/21 21:20 Lipase 38 U/L (22-51) 11/06/21 21:20 25-OH Vitamin D Total 15 ng/mL (30-100) L 11/10/21 11:14 Urine Color DARK YELLOW 11/06/21 21:12 Urine Clarity CLEAR (CLEAR) 11/06/21 21:12 Urine pH 6.0 PH (5.0-7.5) 11/06/21 21:12 Ur Specific [place] 1.020 (1.002-1.030) 11/06/21 21:12 Urine Protein TRACE mg/dL (NEGATIVE) 11/06/21 21:12 Urine Glucose (UA) 100 mg/dL (NEGATIVE) H 11/06/21 21:12 Urine Ketones NEGATIVE mg/dL (NEGATIVE) 11/06/21 21:12 Urine Occult Blood NEGATIVE (NEGATIVE) 11/06/21 21:12 Urine Nitrite NEGATIVE (NEGATIVE) 11/06/21 21:12 Urine Bilirubin NEGATIVE (NEGATIVE) 11/06/21 21:12 Urine Urobilinogen 0.2 (NORMAL) E.U./dL (NORMAL) 11/06/21 21:12 Ur Leukocyte Esterase NEGATIVE (NEGATIVE) 11/06/21 21:12 Ur Microscopic Review NOT INDICATED 11/06/21 21:12 Urine Culture Comments NOT INDICATED 11/06/21 21:12 Nasal Adenovirus (PCR) NOT DETECTED 11/06/21 20:35 Nasal B. parapertussis DNA (PCR) NOT DETECTED 11/06/21 20:35 Nasal Coronavir 229E PCR NOT DETECTED 11/06/21 20:35 Nasal Coronavir HKU1 PCR NOT DETECTED 11/06/21 20:35 Nasal Coronavir NL63 PCR NOT DETECTED 11/06/21 20:35 Nasal Coronavir OC43 PCR NOT DETECTED 11/06/21 20:35 Nasal Enterovir/Rhinovir PCR NOT DETECTED 11/06/21 20:35 Nasal Influenza B PCR NOT DETECTED 11/06/21 20:35 Nasal Influenza A PCR NOT DETECTED 11/06/21 20:35 Nasal Parainfluen 1 PCR NOT DETECTED 11/06/21 20:35 Nasal Parainfluen 2 PCR NOT DETECTED 11/06/21 20:35 Nasal Parainfluen 3 PCR NOT DETECTED 11/06/21 20:35 Nasal Parainfluen 4 PCR NOT DETECTED 11/06/21 20:35 Nasal RSV (PCR) NOT DETECTED 11/06/21 20:35 Nasal B.pertussis DNA PCR NOT DETECTED 11/06/21 20:35 Nasal C.pneumoniae (PCR) NOT DETECTED 11/06/21 20:35 Akhil Human Metapneumo PCR NOT DETECTED 11/06/21 20:35 Nasal M.pneumoniae (PCR) NOT DETECTED 11/06/21 20:35 Nasal SARS-CoV-2 (PCR) NOT DETECTED 11/06/21 20:35 Phenytoin 25.4 ug/mL 11/08/21 08:39 - Procedures Procedures: Procedures EXCISION OF ASCENDING COLON, ENDO (03/29/17) EXCISION OF DESCENDING COLON, ENDO (03/29/17) EXCISION OF RECTUM, ENDO (03/29/17) INSERTION OF INFUSION DEV INTO SUP VENA CAVA, PERC APPROACH (11/05/17) ABX Reporting Has patient been on IV antibiotics over the past 48 hours?: No Current Medications - Current Medications Current Medications: Active Medications Acetaminophen (Acetaminophen 325 Mg Tablet) 650 mg PO Q4HR PRN PRN Reason: Pain 1 to 4 Last Admin: 11/09/21 10:29 Dose: 650 mg Aspirin (Aspirin Ec 81 Mg Tablet) 81 mg PO DAILY [facility] Last Admin: 11/11/21 11:01 Dose: 81 mg Atorvastatin Calcium (Atorvastatin 10 Mg Tablet) 20 mg PO QPM [facility] Last Admin: 11/10/21 21:05 Dose: 20 mg Calcium Carbonate/Glycine (Calcium Carbonate Chew 500 Mg Tablet) 500 mg PO BID [facility] Last Admin: 11/11/21 10:54 Dose: 500 mg Cholecalciferol (Cholecalciferol 25 Mcg Tablet) 50 mcg PO DAILY [facility] Last Admin: 11/11/21 10:56 Dose: 50 mcg Docusate Sodium (Docusate Sodium 250 Mg Capsule) 250 - 500 mg PO DAILY [facility] Last Admin: 11/11/21 11:07 Dose: 250 mg Enoxaparin Sodium (Enoxaparin 40 Mg/0.4 Ml Syringe) 40 mg SUBQ DAILY [facility] Last Admin: 11/11/21 11:08 Dose: 40 mg Finasteride (Finasteride 5 Mg Tablet) 5 mg PO DAILY [facility] Last Admin: 11/11/21 11:05 Dose: 5 mg Lactated Ringer's (Lr) 1,000 mls @ 83.333 mls/hr IV .Q12H [facility] Stop: 11/12/21 07:59 Last Admin: 11/11/21 11:09 Dose: 83.333 mls/hr Insulin Aspart (Insulin Aspart 300 Unit/3 Ml Pen) 3 - 11 unit SUBQ 0800,1200,1700,2100 [facility]; Protocol Last Admin: 11/11/21 11:21 Dose: 5 unit Insulin Glargine (Insulin Glargine 300 Unit/3 Ml Pen) 10 unit SUBQ QPM [facility] Last Admin: 11/10/21 21:08 Dose: 10 unit Ketorolac Tromethamine (Ketorolac 15 Mg/Ml Vial) 15 mg IVP Q6HR PRN PRN Reason: PAIN Stop: 11/14/21 13:14 Last Admin: 11/10/21 19:24 Dose: 15 mg Lamotrigine (Lamotrigine 25 Mg Tablet) 25 mg PO BID [facility] Last Admin: 11/11/21 10:59 Dose: 25 mg Lamotrigine (Lamotrigine 100 Mg Tablet) 200 mg PO BID [facility] Last Admin: 11/11/21 10:59 Dose: 200 mg Levetiracetam (Levetiracetam 250 Mg Tablet) 1,000 mg PO BID [facility] Last Admin: 11/11/21 11:13 Dose: 1,000 mg Lorazepam (Lorazepam 2 Mg/Ml Vial) 2 mg IVP Q2H PRN PRN Reason: Seizure Metoprolol Succinate (Metoprolol Succinate 25 Mg Tablet) 12.5 mg PO BID [facility] Last Admin: 11/11/21 11:06 Dose: 12.5 mg Ondansetron HCl (Ondansetron Odt 4 Mg Tablet) 4 mg TL Q6HR PRN PRN Reason: Nausea / Vomiting Ondansetron HCl (Ondansetron 4 Mg/2 Ml Vial) 4 mg IVP Q6HR PRN PRN Reason: Nausea / Vomiting Last Admin: 11/10/21 12:35 Dose: 4 mg Oxycodone HCl (Oxycodone 5 Mg Tablet) 10 mg PO Q4HR PRN PRN Reason: Pain 8 to 10 Last Admin: 11/10/21 04:54 Dose: 10 mg Phenytoin Sodium (Phenytoin Er 100 Mg Capsule) 300 mg PO DAILY [facility] Last Admin: 11/11/21 11:02 Dose: 300 mg Phenytoin Sodium (Phenytoin Er 100 Mg Capsule) 400 mg PO QPM [facility] Last Admin: 11/10/21 21:06 Dose: 400 mg Polyethylene Glycol (Polyethylene Glycol 3350 17 Gm Packet) 17 gm PO DAILY [facility] Last Admin: 11/11/21 10:55 Dose: 17 gm Senna (Senna 8.6 Mg Tablet) 8.6 - 17.2 mg PO DAILY [facility] Last Admin: 11/11/21 10:57 Dose: 8.6 mg Sodium Chloride (Sodium Chloride Flush 0.9% 10 Ml Syringe) 10 ml IVP PRN PRN PRN Reason: NEEDED PER PROVIDER ORDERS Last Admin: 11/08/21 16:44 Dose: 10 ml Sodium Chloride (Sodium Chloride Flush 0.9% 10 Ml Syringe) 10 ml IVP 0 100,0900,1700 [facility] Last Admin: 11/11/21 11:15 Dose: 10 ml Tamsulosin HCl (Tamsulosin 0.4 Mg Capsule) 0.4 mg PO DAILY [facility] Last Admin: 11/11/21 11:04 Dose: 0.4 mg Topiramate (Topiramate 25 Mg Tablet) 50 mg PO BID [facility] Last Admin: 11/11/21 10:58 Dose: 50 mg Phenytoin Sodium Extended [Dilantin] 300 mg PO DAILY 05/18/13 glipiZIDE ER [Glucotrol Xl] 2.5 mg PO DAILY 12/19/17 Metoprolol Succinate 12.5 mg PO BID 09/04/18
[2021-11-11 12:45] LABS: B. PARAPERTUSSIS- RESP PCR PAN NOT DETECTED; B. PERTUSSIS- RESP PCR PANEL NOT DETECTED; C. PNEUMONIAE- RESP PCR PANEL NOT DETECTED; CORONAVIRUS 229E-RESP PCR NOT DETECTED; CORONAVIRUS HKU1-RESP PCR NOT DETECTED; CORONAVIRUS NL63-RESP PCR NOT DETECTED; CORONAVIRUS OC43-RESP PCR NOT DETECTED; HUMAN METAPNEUMOVIRUS NOT DETECTED; INFLUENZA A- RESP PCR PANEL NOT DETECTED; INFLUENZA B - RESP PCR PANEL NOT DETECTED; M. PNEUMONIAE- RESP PCR PANEL NOT DETECTED; PARAINFLUENZA VIRUS 1 NOT DETECTED; PARAINFLUENZA VIRUS 2 NOT DETECTED; PARAINFLUENZA VIRUS 3 NOT DETECTED; PARAINFLUENZA VIRUS 4 NOT DETECTED; RHINOVIRUS/ENTEROVIRUS NOT DETECTED; RSV- RESP PCR PANEL NOT DETECTED
[2021-11-11 12:46] LABS: SARS-CoV-2 -RESP PCR PANEL DETECTED
[2021-11-11] MEDS: ATORVASTATIN 10 MG TABLET PO SCH (20:43)
[2021-11-11] MEDS: INSULIN GLARGINE 300 UNIT/3 ML PEN SUBQ SCH (20:47)
[2021-11-11] MEDS: oxyCODONE 5 MG TABLET PO PRN (22:36)
[2021-11-12] MEDS: SODIUM CHLORIDE FLUSH 0.9% 10 ML SYRINGE IVP SCH ×3 (01:30→17:31)
[2021-11-12] MEDS: oxyCODONE 5 MG TABLET PO PRN ×2 (04:52→21:47)
[2021-11-12] MEDS: CALCIUM CARBONATE CHEW 500 MG TABLET PO SCH ×2 (08:50→21:48)
[2021-11-12] MEDS: polyethylene glycoL 3350 17 GM PACKET PO SCH (08:50)
[2021-11-12] MEDS: SENNA 8.6 MG TABLET PO SCH (08:52)
[2021-11-12] MEDS: FINASTERIDE 5 MG TABLET PO SCH (08:52)
[2021-11-12] MEDS: lamoTRIgine 25 MG TABLET PO SCH ×2 (08:53→21:48)
[2021-11-12] MEDS: levETIRAcetam 250 MG TABLET PO SCH ×2 (08:57→21:49)
[2021-11-12] MEDS: ASPIRIN EC 81 MG TABLET PO SCH (08:58)
[2021-11-12] MEDS: CHOLECALCIFEROL 25 MCG TABLET PO SCH (08:59)
[2021-11-12] MEDS: lamoTRIgine 100 MG TABLET PO SCH ×2 (09:00→21:48)
[2021-11-12] MEDS: TOPIRAMATE 25 MG TABLET PO SCH ×2 (09:01→21:48)
[2021-11-12] MEDS: METOPROLOL SUCCINATE 25 MG TABLET PO SCH ×2 (09:02→21:49)
[2021-11-12] MEDS: TAMSULOSIN 0.4 MG CAPSULE PO SCH (09:02)
[2021-11-12] MEDS: INSULIN ASPART 300 UNIT/3 ML PEN SUBQ SCH ×4 (09:03→21:41)
[2021-11-12] MEDS: DOCUSATE SODIUM 250 MG CAPSULE PO SCH (09:03)
[2021-11-12] MEDS: ENOXAPARIN 40 MG/0.4 ML SYRINGE SUBQ SCH (09:05)
[2021-11-12] MEDS: PHENYTOIN ER 100 MG CAPSULE PO SCH ×2 (09:07→21:48)
--- NOTE | 2021-11-12 14:27 | PROVIDER PROGRESS NOTE ---
Subjective - Prog Note Date Prog Note Date: 11/12/21 - Subjective Pt reports feeling: No change Subjective: Pt was calm and pleasant this morning. Denied pain, shortness of breath, or other concerns. Slightly confused. Objective - Vital Signs/Intake & Output Reviewed Vital Signs: Yes Intake & Output: Intake & Output 11/09/21 11/10/21 11/11/21 11/12/21 23:59 23:59 23:59 23:59 Intake Total 710 2192.667 2845.719 1500 Output Total 250 200 Balance 460 5609.866 1441.719 1500 - Objective General Appearance: positive: No acute distress, Alert Eyes Bilateral: positive: Normal inspection, PERRL ENT: positive: ENT inspection nml, No signs of dehydration Respiratory: positive: Chest non-tender, No respiratory distress, Breath sounds nml Cardiovascular: positive: Regular rate & rhythm Peripheral Pulses: 2+ Dorsalis pedis (R), 2+ Dorsalis pedis (L) Abdomen: positive: Non-tender, Nml bowel sounds, No distention Skin: positive: Color nml Extremities: positive: Non-tender, Nml appearance, No pedal edema Neurologic/Psychiatric: positive: Other (alert, oriented to self, word salad) - Lab Results Fish Bones: 11/11/21 07:05 11/11/21 07:05 Other Labs: Lab Results x24hrs 11/12/21 11/12/21 11/11/21 Range/Units 12:02 08:00 20:38 POC Whole Bld Glucose 201 H 137 H 182 H (70 - 100) mg/dL Levetiracetam mcg/mL 11/11/21 11/08/21 Range/Units 17:08 08:39 POC Whole Bld Glucose 171 H (70 - 100) mg/dL Levetiracetam 17.6 mcg/mL Assessment/Plan - Problem List (1) Closed right hip fracture Impression: Stable. Day 5 of right hip repair. Plan for d/c to SNF when able. Continue pain control and PT/OT. Denied pain today. Qualifiers: Encounter type: initial encounter Qualified Code(s): S72.001A - Fracture of unspecified part of neck of right femur, initial encounter for closed fracture (2) COVID-19 Impression: Stable. Newly diagnosed yesterday 11/11 after he was tested in preparation for discharge to a SNF. Has not been hypoxic or short of breath. Afebrile. will continue to monitor. Lovenox was continued for DVT prophylaxis. There is no need for Decadron and Remdesvir at this time given he is asymptomatic. (3) Seizure disorder Impression: Stable. No seizure noted today. Per chart review family reports he has seizures when distressed. His outpatient meds were restarted and levels checked. The Lamotrogine level was low at 2.5 on 11/08, will continue to monitor for new seizures and have him follow up with his PCP for medicine titration unless he has further seizures. (4) History of coronary artery disease Impression: Stable. Denies chest pain. Has been normotensive with regular heart rate. Home meds continued. (5) Cognitive and neurobehavioral dysfunction following brain injury Impression: Stable. He is at his baseline. 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 (6) Type 2 diabetes mellitus Impression: Stable. BGs have been 131-215. He takes Glipizide and Metformin at home. He is on Lantus and sliding scale insulin with a carb controlled diet while inpatient. Qualifiers: Diabetes mellitus custodial insulin use: without roasterman use Diabetes mellitus complication status: without complication Qualified Code(s): E11.9 - Type 2 diabetes mellitus without complications
[2021-11-12] MEDS: INSULIN GLARGINE 300 UNIT/3 ML PEN SUBQ SCH (21:44)
[2021-11-12] MEDS: ATORVASTATIN 10 MG TABLET PO SCH (21:49)
[2021-11-13] MEDS: SODIUM CHLORIDE FLUSH 0.9% 10 ML SYRINGE IVP SCH ×3 (01:13→17:20)
--- NOTE | 2021-11-13 08:19 | PROVIDER PROGRESS NOTE ---
Subjective - Prog Note Date Prog Note Date: 11/13/21 - Subjective Pt reports feeling: No change Subjective: Pt was calm and pleasantly confused this morning. Denied pain, shortness of breath or other concerns. Objective - Vital Signs/Intake & Output Reviewed Vital Signs: Yes Vital Signs: Vital Signs x48h Temp Pulse Resp BP Pulse Ox 11/13/21 06:11 36.8 C 78 18 124/78 98 11/13/21 01:12 36.9 C 79 16 103/59 L 94 Intake & Output: Intake & Output 11/10/21 11/11/21 11/12/21 11/13/21 23:59 23:59 23:59 23:59 Intake Total 2192.667 2845.719 1989 350 Output Total 200 2 Balance 8725.145 0599.719 1987 350 - Objective General Appearance: positive: No acute distress, Alert Eyes Bilateral: positive: Normal inspection, PERRL ENT: positive: ENT inspection nml, No signs of dehydration Respiratory: positive: Chest non-tender, No respiratory distress, Breath sounds nml Cardiovascular: positive: Regular rate & rhythm, No murmur Peripheral Pulses: 2+ Dorsalis pedis (R), 2+ Dorsalis pedis (L) Abdomen: positive: Non-tender, No organomegaly, Nml bowel sounds, No distention Skin: positive: Color nml Extremities: positive: Non-tender, Nml appearance, No pedal edema Neurologic/Psychiatric: positive: Other (alert and oriented to self, non- sensical and word salad noted; pleasant) - Lab Results Fish Bones: 11/11/21 07:05 11/11/21 07:05 Other Labs: Lab Results x24hrs 11/13/21 11/12/21 11/12/21 Range/Units 08:13 21:39 16:54 POC Whole Bld Glucose 136 H 230 H 192 H (70 - 100) mg/dL 11/12/21 Range/Units 12:02 POC Whole Bld Glucose 201 H (70 - 100) mg/dL Assessment/Plan - Problem List (1) Closed right hip fracture Impression: Stable. Day 6 of right hip repair. Plan for d/c to SNF when able. Continue pain control and PT/OT. Denied pain today. Qualifiers: Encounter type: initial encounter Qualified Code(s): S72.001A - Fracture of unspecified part of neck of right femur, initial encounter for closed fracture (2) COVID-19 Impression: Stable. Newly diagnosed 11/11 after he was tested in preparation for discharge to a SNF. Has not been hypoxic or short of breath. Afebrile and asymptomatic. Will continue to monitor. Lovenox was continued for DVT prophylaxis. There is no need for Decadron and Remdesvir at this time given he is asymptomatic. (3) Seizure disorder Impression: Stable. No seizure noted today. Per chart review family reports he has seizures when distressed. His outpatient meds were restarted and levels checked. The Lamotrogine level was low at 2.5 on 11/08, will continue to monitor for new seizures and have him follow up with his PCP for medicine titration unless he has further seizures. (4) History of coronary artery disease Impression: Stable. Denies chest pain. Has been normotensive with regular heart rate. Home meds continued. (5) Cognitive and neurobehavioral dysfunction following brain injury Impression: Stable. He is at his baseline. 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 (6) Type 2 diabetes mellitus Impression: Stable. BGs have been 136-230 over the past 24 hours. He takes Glipizide and Metformin at home. He is on Lantus and sliding scale insulin with a carb controlled diet while inpatient. Eating 75-100% of his meals. Qualifiers: Diabetes mellitus [facility] insulin use: without director long term care use Diabetes mellitus complication status: without complication Qualified Code(s): E11.9 - Type 2 diabetes mellitus without complications
[2021-11-13] MEDS: polyethylene glycoL 3350 17 GM PACKET PO SCH (08:45)
[2021-11-13] MEDS: CHOLECALCIFEROL 25 MCG TABLET PO SCH (08:48)
[2021-11-13] MEDS: TAMSULOSIN 0.4 MG CAPSULE PO SCH (08:48)
[2021-11-13] MEDS: PHENYTOIN ER 100 MG CAPSULE PO SCH ×2 (08:49→20:51)
[2021-11-13] MEDS: SENNA 8.6 MG TABLET PO SCH (08:51)
[2021-11-13] MEDS: lamoTRIgine 25 MG TABLET PO SCH ×2 (08:51→20:51)
[2021-11-13] MEDS: FINASTERIDE 5 MG TABLET PO SCH (08:52)
[2021-11-13] MEDS: METOPROLOL SUCCINATE 25 MG TABLET PO SCH ×2 (08:52→20:51)
[2021-11-13] MEDS: levETIRAcetam 250 MG TABLET PO SCH ×2 (08:53→20:51)
[2021-11-13] MEDS: TOPIRAMATE 25 MG TABLET PO SCH ×2 (08:55→20:52)
[2021-11-13] MEDS: ASPIRIN EC 81 MG TABLET PO SCH (08:55)
[2021-11-13] MEDS: lamoTRIgine 100 MG TABLET PO SCH ×2 (08:55→20:51)
[2021-11-13] MEDS: INSULIN ASPART 300 UNIT/3 ML PEN SUBQ SCH ×4 (08:57→20:48)
[2021-11-13] MEDS: DOCUSATE SODIUM 250 MG CAPSULE PO SCH (08:57)
[2021-11-13] MEDS: CALCIUM CARBONATE CHEW 500 MG TABLET PO SCH ×2 (08:57→20:52)
[2021-11-13] MEDS: ENOXAPARIN 40 MG/0.4 ML SYRINGE SUBQ SCH (08:58)
[2021-11-13] MEDS: oxyCODONE 5 MG TABLET PO PRN (13:42)
[2021-11-13] MEDS: INSULIN GLARGINE 300 UNIT/3 ML PEN SUBQ SCH (20:49)
[2021-11-13] MEDS: ATORVASTATIN 10 MG TABLET PO SCH (20:52)
[2021-11-14] MEDS: SODIUM CHLORIDE FLUSH 0.9% 10 ML SYRINGE IVP SCH ×3 (01:17→17:39)
--- NOTE | 2021-11-14 06:03 | PROVIDER PROGRESS NOTE ---
Assessment/Plan - Problem List (1) Closed right hip fracture Qualifiers: Encounter type: initial encounter Qualified Code(s): S72.001A - Fracture of unspecified part of neck of right femur, initial encounter for closed fracture Assessment/Plan: Stable. Postop day #7 of right hip repair. Patient working with PT/OT. Plan is for discharge to a senior living facility. Continued pain management. (2) COVID-19 Assessment/Plan: Stable. Newly diagnosed on 11/11/2021 after he was tested in preparation for dis charge to senior living facility. Patient is asymptomatic. Continue to monitor. Lovenox for DVT prophylaxis. Currently no need for Decadron or remdesivir. (3) Seizure disorder Assessment/Plan: Stable. On Keppra 1000 mg p.o. twice daily and Lamictal 200 mg p.o. twice daily. Phenytoin 300 mg p.o. daily and 400 mg p.o. every afternoon. Topamax 50 mg p.o. twice daily. (4) History of coronary artery disease Assessment/Plan: On metoprolol succinate 12.5 mg p.o. twice daily. Aspirin 81 mg p.o. daily. Atorvastatin 20 mg p.o. 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 He is at his baseline. 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 - Current Meds Current Meds: Current Medications Generic Name Dose Route Start Last Admin Trade Name Freq PRN Reason Stop Dose Admin Acetaminophen 650 mg 11/06/21 21:18 11/09/21 10:29 Acetaminophen 325 Mg Tablet PO 650 mg Q4HR PRN Administration Pain 1 to 4 Aspirin 81 mg 11/08/21 09:00 11/13/21 08:55 Aspirin Ec 81 Mg Tablet PO 81 mg DAILY JAKE Administration Atorvastatin Calcium 20 mg 11/06/21 23:00 11/13/21 20:52 Atorvastatin 10 Mg Tablet PO 20 mg QPM JAKE Administration Calcium Carbonate/Glycine 500 mg 11/11/21 10:00 11/13/21 20:52 Calcium Carbonate Chew 500 Mg Tablet PO 500 mg BID JAKE Administration Cholecalciferol 50 mcg 11/11/21 09:00 11/13/21 08:48 Cholecalciferol 25 Mcg Tablet PO 50 mcg DAILY JAKE Administration Docusate Sodium 250 - 500 mg 11/11/21 11:00 11/13/21 08:57 Docusate Sodium 250 Mg Capsule PO 250 mg DAILY JAKE Administration Enoxaparin Sodium 40 mg 11/08/21 13:00 11/13/21 08:58 Enoxaparin 40 Mg/0.4 Ml Syringe SUBQ 40 mg DAILY JAKE Administration Finasteride 5 mg 11/08/21 09:00 11/13/21 08:52 Finasteride 5 Mg Tablet PO 5 mg DAILY JAKE Administration Insulin Aspart 3 - 11 unit 11/09/21 12:00 11/13/21 20:48 Insulin Aspart 300 Unit/3 Ml Pen SUBQ 5 unit 0800,1200,1700,2100 [facility] Administration Protocol Insulin Glargine 10 unit 11/10/21 21:00 11/13/21 20:49 Insulin Glargine 300 Unit/3 Ml Pen SUBQ 10 unit QPM JAKE Administration Ketorolac Tromethamine 15 mg 11/09/21 13:15 11/10/21 19:24 Ketorolac 15 Mg/Ml Vial IVP 11/14/21 13:14 15 mg Q6HR PRN Administration PAIN Lamotrigine 25 mg 11/06/21 22:00 11/13/21 20:51 Lamotrigine 25 Mg Tablet PO 25 mg BID JAKE Administration Lamotrigine 200 mg 11/06/21 22:00 11/13/21 20:51 Lamotrigine 100 Mg Tablet PO 200 mg BID JAKE Administration Levetiracetam 1,000 mg 11/06/21 23:00 11/13/21 20:51 Levetiracetam 250 Mg Tablet PO 1,000 mg BID JAKE Administration Metoprolol Succinate 12.5 mg 11/06/21 22:00 11/13/21 20:51 Metoprolol Succinate 25 Mg Tablet PO 12.5 mg BID JAKE Administration Ondansetron HCl 4 mg 11/06/21 21:18 11/10/21 12:35 Ondansetron 4 Mg/2 Ml Vial IVP 4 mg Q6HR PRN Administration Nausea / Vomiting Oxycodone HCl 10 mg 11/06/21 21:18 11/13/21 13:42 Oxycodone 5 Mg Tablet PO 10 mg Q4HR PRN Administration Pain 8 to 10 Phenytoin Sodium 300 mg 11/07/21 09:00 11/13/21 08:49 Phenytoin Er 100 Mg Capsule PO 300 mg DAILY JAKE Administration Phenytoin Sodium 400 mg 11/06/21 23:00 11/13/21 20:51 Phenytoin Er 100 Mg Capsule PO 400 mg QPM JAKE Administration Polyethylene Glycol 17 gm 11/09/21 10:00 11/13/21 08:45 Polyethylene Glycol 3350 17 Gm Packet PO 17 gm DAILY JAKE Administration Senna 8.6 - 17.2 mg 11/11/21 11:00 11/13/21 08:51 Senna 8.6 Mg Tablet PO 8.6 mg DAILY JAKE Administration Sodium Chloride 10 ml 11/06/21 21:18 11/08/21 16:44 Sodium Chloride Flush 0.9% 10 Ml Syringe IVP 10 ml PRN PRN Administration NEEDED PER PROVIDER ORDERS Sodium Chloride 10 ml 11/07/21 01:00 11/14/21 01:17 Sodium Chloride Flush 0.9% 10 Ml Syringe IVP Not Given 0100,0900,1700 [facility] Tamsulosin HCl 0.4 mg 11/08/21 09:00 11/13/21 08:48 Tamsulosin 0.4 Mg Capsule PO 0.4 mg DAILY JAKE Administration Topiramate 50 mg 11/06/21 23:00 11/13/21 20:52 Topiramate 25 Mg Tablet PO 50 mg BID JAKE Administration - Lab Result Fish Bone Diagrams: 11/11/21 07:05 11/11/21 07:05 Subjective - Subjective Patient Reports: Other (Patient was resting comfortably in bed. Denied any significant complaints.) Objective Vital Signs: Vital Signs - 24 hr 11/13/21 11/13/21 11/13/21 06:11 09:00 14:19 Temperature 36.8 C 36.8 C 37.0 C Heart Rate [ 78 70 85 Brachial] Respiratory 18 20 20 Rate Blood Pressure 124/78 113/66 108/61 [Right Brachial artery] O2 Saturation 98 96 95 11/13/21 11/13/21 11/14/21 17:00 21:00 00:22 Temperature 37.0 C 36.8 C 36.9 C Heart Rate [ 81 72 91 Brachial] Respiratory 16 18 18 Rate Blood Pressure 121/65 110/67 100/64 [Right Brachial artery] O2 Saturation 98 97 98 11/14/21 05:17 Temperature 37.0 C Heart Rate [ 73 Brachial] Respiratory 18 Rate Blood Pressure 118/62 [Right Brachial artery] O2 Saturation 96 Oxygen O2 Source [With Activity] Room air O2 Source Room air I&O (Last 24 Hrs): Intake and Output Totals x24h 11/12/21 11/13/21 11/14/21 23:59 23:59 23:59 Intake Total 1989 1150 Output Total Balance 1987 1150 General: Alert, Cooperative, Other (Oriented to self and place but not quite recent for presentation.) HEENT: PERRLA, EOMI Neck: Supple, No JVD Neuro: Alert, Non Focal Cardiovascular: Regular rate, Normal S1, Normal S2 Respiratory: Chest non-tender, No respiratory distress, Breath sounds nml Abdomen: Normal bowel sounds, Soft, No tenderness Extremities: No clubbing, No edema Skin: No rashes, No breakdown - Results Results: Laboratory Results WBC 5.9 x10^3/uL (4.8-10.8) 11/11/21 07:05 RBC 3.74 10^6/uL (4.70-6.10) L 11/11/21 07:05 Hgb 11.3 g/dL (14.0-18.0) L 11/11/21 07:05 Hct 34.5 % (42.0-52.0) L 11/11/21 07:05 MCV 92.2 fL (80.0-94.0) 11/11/21 07:05 MCH 30.2 pg (27.0-31.0) 11/11/21 07:05 MCHC 32.8 g/dL (32.0-36.0) 11/11/21 07:05 RDW 13.2 % (12.0-15.0) 11/11/21 07:05 Plt Count 260 10^3/uL (130-450) 11/11/21 07:05 MPV 10.0 fL (7.4-11.4) 11/11/21 07:05 Neut # (Auto) 3.6 10^3/uL (1.5-6.6) 11/11/21 07:05 Lymph # (Auto) 1.0 10^3/uL (1.5-3.5) L 11/11/21 07:05 Toole # (Auto) 0.9 10^3/uL (0.0-1.0) 11/11/21 07:05 Eos # (Auto) 0.4 10^3/uL (0.0-0.7) 11/11/21 07:05 Baso # (Auto) 0.0 10^3/uL (0.0-0.1) 11/11/21 07:05 Absolute Nucleated RBC 0.00 x10^3/uL 11/11/21 07:05 Nucleated RBC % 0.0 /100WBC 11/11/21 07:05 PT 11.7 secs (9.9-12.6) 11/06/21 21:20 INR 1.1 (0.8-1.2) 11/06/21 21:20 APTT 25.3 secs (24.9-33.3) 11/06/21 21:20 Sodium 136 mmol/L (135-145) 11/11/21 07:05 Potassium 4.1 mmol/L (3.5-5.0) 11/11/21 07:05 Chloride 104 mmol/L (101-111) 11/11/21 07:05 Carbon Dioxide 24 mmol/L (21-32) 11/11/21 07:05 Anion Gap 8.0 (6-13) 11/11/21 07:05 BUN 23 mg/dL (6-20) H 11/11/21 07:05 Creatinine 1.0 mg/dL (0.6-1.2) 11/11/21 07:05 Estimated GFR (MDRD) 73 (>89) L 11/11/21 07:05 Glucose 140 mg/dL (70-100) H 11/11/21 07:05 POC Whole Bld Glucose 197 mg/dL (70 - 100) H 11/13/21 20:47 Estimat Average Glucose 126 mg/dL (70-100) H 11/08/21 06:45 Hemoglobin A1c % 6.0 % (4.27-6.07) 11/08/21 06:45 Calcium 8.4 mg/dL (8.5-10.3) L 11/11/21 07:05 Total Bilirubin 0.5 mg/dL (0.2-1.0) 11/06/21 21:20 AST 35 IU/L (10-42) 11/06/21 21:20 ALT 39 IU/L (10-60) 11/06/21 21:20 Alkaline Phosphatase 91 IU/L (42-121) 11/06/21 21:20 Total Protein 8.7 g/dL (6.7-8.2) H 11/06/21 21:20 Albumin 4.4 g/dL (3.2-5.5) 11/06/21 21:20 Globulin 4.3 g/dL (2.1-4.2) H 11/06/21 21:20 Albumin/Globulin Ratio 1.0 (1.0-2.2) 11/06/21 21:20 Lipase 38 U/L (22-51) 11/06/21 21:20 25-OH Vitamin D Total 15 ng/mL (30-100) L 11/10/21 11:14 Urine Color DARK YELLOW 11/06/21 21:12 Urine Clarity CLEAR (CLEAR) 11/06/21 21:12 Urine pH 6.0 PH (5.0-7.5) 11/06/21 21:12 Ur Specific Clarita 1.020 (1.002-1.030) 11/06/21 21:12 Urine Protein TRACE mg/dL (NEGATIVE) 11/06/21 21:12 Urine Glucose (UA) 100 mg/dL (NEGATIVE) H 11/06/21 21:12 Urine Ketones NEGATIVE mg/dL (NEGATIVE) 11/06/21 21:12 Urine Occult Blood NEGATIVE (NEGATIVE) 11/06/21 21:12 Urine Nitrite NEGATIVE (NEGATIVE) 11/06/21 21:12 Urine Bilirubin NEGATIVE (NEGATIVE) 11/06/21 21:12 Urine Urobilinogen 0.2 (NORMAL) E.U./dL (NORMAL) 11/06/21 21:12 Ur Leukocyte Esterase NEGATIVE (NEGATIVE) 11/06/21 21:12 Ur Microscopic Review NOT INDICATED 11/06/21 21:12 Urine Culture Comments NOT INDICATED 11/06/21 21:12 Nasal Adenovirus (PCR) NOT DETECTED 11/11/21 11:30 Nasal B. parapertussis DNA (PCR) NOT DETECTED 11/11/21 11:30 Nasal Coronavir 229E PCR NOT DETECTED 11/11/21 11:30 Nasal Coronavir HKU1 PCR NOT DETECTED 11/11/21 11:30 Nasal Coronavir NL63 PCR NOT DETECTED 11/11/21 11:30 Nasal Coronavir OC43 PCR NOT DETECTED 11/11/21 11:30 Nasal Enterovir/Rhinovir PCR NOT DETECTED 11/11/21 11:30 Nasal Influenza B PCR NOT DETECTED 11/11/21 11:30 Nasal Influenza A PCR NOT DETECTED 11/11/21 11:30 Nasal Parainfluen 1 PCR NOT DETECTED 11/11/21 11:30 Nasal Parainfluen 2 PCR NOT DETECTED 11/11/21 11:30 Nasal Parainfluen 3 PCR NOT DETECTED 11/11/21 11:30 Nasal Parainfluen 4 PCR NOT DETECTED 11/11/21 11:30 Nasal RSV (PCR) NOT DETECTED 11/11/21 11:30 Nasal B.pertussis DNA PCR NOT DETECTED 11/11/21 11:30 Nasal C.pneumoniae (PCR) NOT DETECTED 11/11/21 11:30 Akhil Human Metapneumo PCR NOT DETECTED 11/11/21 11:30 Nasal M.pneumoniae (PCR) NOT DETECTED 11/11/21 11:30 Nasal SARS-CoV-2 (PCR) DETECTED A 11/11/21 11:30 Phenytoin 25.4 ug/mL 11/08/21 08:39 Lamotrigine 2.5 mcg/mL (4.0-18.0) L 11/08/21 08:39 Levetiracetam 17.6 mcg/mL 11/08/21 08:39 - Procedures Procedures: Procedures EXCISION OF ASCENDING COLON, ENDO (03/29/17) EXCISION OF DESCENDING COLON, ENDO (03/29/17) EXCISION OF RECTUM, ENDO (03/29/17) INSERTION OF INFUSION DEV INTO SUP VENA CAVA, PERC APPROACH (11/05/17) ABX Reporting Has patient been on IV antibiotics over the past 48 hours?: No
[2021-11-14] MEDS: INSULIN ASPART 300 UNIT/3 ML PEN SUBQ SCH ×4 (08:07→21:05)
[2021-11-14] MEDS: ASPIRIN EC 81 MG TABLET PO SCH (08:38)
[2021-11-14] MEDS: CALCIUM CARBONATE CHEW 500 MG TABLET PO SCH ×2 (08:38→20:59)
[2021-11-14] MEDS: ENOXAPARIN 40 MG/0.4 ML SYRINGE SUBQ SCH (08:38)
[2021-11-14] MEDS: polyethylene glycoL 3350 17 GM PACKET PO SCH (08:38)
[2021-11-14] MEDS: METOPROLOL SUCCINATE 25 MG TABLET PO SCH ×2 (08:39→20:59)
[2021-11-14] MEDS: DOCUSATE SODIUM 250 MG CAPSULE PO SCH (08:39)
[2021-11-14] MEDS: TAMSULOSIN 0.4 MG CAPSULE PO SCH (08:40)
[2021-11-14] MEDS: levETIRAcetam 250 MG TABLET PO SCH ×2 (08:40→20:58)
[2021-11-14] MEDS: PHENYTOIN ER 100 MG CAPSULE PO SCH ×2 (08:41→20:59)
[2021-11-14] MEDS: TOPIRAMATE 25 MG TABLET PO SCH ×2 (08:41→20:59)
[2021-11-14] MEDS: lamoTRIgine 100 MG TABLET PO SCH ×2 (08:41→20:59)
[2021-11-14] MEDS: SENNA 8.6 MG TABLET PO SCH (08:41)
[2021-11-14] MEDS: CHOLECALCIFEROL 25 MCG TABLET PO SCH (08:42)
[2021-11-14] MEDS: lamoTRIgine 25 MG TABLET PO SCH ×2 (08:42→20:59)
[2021-11-14] MEDS: FINASTERIDE 5 MG TABLET PO SCH (11:42)
[2021-11-14] MEDS: oxyCODONE 5 MG TABLET PO PRN (14:45)
[2021-11-14] MEDS: ACETAMINOPHEN 325 MG TABLET PO PRN (14:46)
[2021-11-14] MEDS ORDERED: MAGNESIUM HYDROXIDE 2,400 MG/30 ML UDC PO ONE (18:44)
[2021-11-14] MEDS: ATORVASTATIN 10 MG TABLET PO SCH (20:58)
[2021-11-14] MEDS: INSULIN GLARGINE 300 UNIT/3 ML PEN SUBQ SCH (21:06)
[2021-11-15] MEDS: ACETAMINOPHEN 325 MG TABLET PO PRN ×2 (00:28→04:56)
[2021-11-15] MEDS: SODIUM CHLORIDE FLUSH 0.9% 10 ML SYRINGE IVP SCH ×3 (00:29→17:52)
[2021-11-15 09:42] LABS: BASOPHILS # (AUTO) 0.1 10^3/uL (0.0-0.1); BASOPHILS % (AUTO) 0.8 %; EOSINOPHILS # (AUTO) 0.3 10^3/uL (0.0-0.7); EOSINOPHILS % (AUTO) 4.1 %; HCT - HEMATOCRIT 36.9 % (42.0-52.0); LYMPHOCYTES # (AUTO) 1.6 10^3/uL (1.5-3.5); LYMPHOCYTES % (AUTO) 21.5 %; MEAN CORPUSCULAR HEMOGLOBIN 30.1 pg (27.0-31.0); MEAN CORPUSCULAR HGB CONC 32.5 g/dL (32.0-36.0); MEAN CORPUSCULAR VOLUME 92.5 fL (80.0-94.0); MONOCYTES # (AUTO) 0.9 10^3/uL (0.0-1.0); MONOCYTES % (AUTO) 11.5 %; NEUTROPHILS # (AUTO) 4.6 10^3/uL (1.5-6.6); NEUTROPHILS % (AUTO) 61.4 %; PLT - PLATELET COUNT 519 10^3/uL (130-450); RED BLOOD COUNT 3.99 10^6/uL (4.70-6.10); RED CELL DISTRIBUTION WIDTH 13.2 % (12.0-15.0); WHITE BLOOD COUNT 7.5 x10^3/uL (4.8-10.8)
[2021-11-15 09:49] LABS: CALCIUM 8.8 mg/dL (8.5-10.3); CREATININE 1.1 mg/dL (0.6-1.2); POTASSIUM 4.8 mmol/L (3.5-5.0)
[2021-11-15] MEDS: INSULIN ASPART 300 UNIT/3 ML PEN SUBQ SCH ×4 (10:31→21:26)
[2021-11-15] MEDS: ENOXAPARIN 40 MG/0.4 ML SYRINGE SUBQ SCH (10:32)
[2021-11-15] MEDS: polyethylene glycoL 3350 17 GM PACKET PO SCH (10:32)
[2021-11-15] MEDS: PHENYTOIN ER 100 MG CAPSULE PO SCH ×2 (10:33→21:24)
[2021-11-15] MEDS: ASPIRIN EC 81 MG TABLET PO SCH (10:34)
[2021-11-15] MEDS: lamoTRIgine 25 MG TABLET PO SCH ×2 (10:34→21:26)
[2021-11-15] MEDS: TAMSULOSIN 0.4 MG CAPSULE PO SCH (10:36)
[2021-11-15] MEDS: levETIRAcetam 250 MG TABLET PO SCH ×2 (10:36→21:25)
[2021-11-15] MEDS: CHOLECALCIFEROL 25 MCG TABLET PO SCH (10:37)
[2021-11-15] MEDS: lamoTRIgine 100 MG TABLET PO SCH ×2 (10:37→21:26)
[2021-11-15] MEDS: TOPIRAMATE 25 MG TABLET PO SCH ×2 (10:37→21:26)
[2021-11-15] MEDS: FINASTERIDE 5 MG TABLET PO SCH (10:38)
[2021-11-15] MEDS: METOPROLOL SUCCINATE 25 MG TABLET PO SCH ×2 (10:38→21:25)
[2021-11-15] MEDS: SENNA 8.6 MG TABLET PO SCH (10:39)
[2021-11-15] MEDS: DOCUSATE SODIUM 250 MG CAPSULE PO SCH (10:39)
[2021-11-15] MEDS: CALCIUM CARBONATE CHEW 500 MG TABLET PO SCH ×2 (10:40→21:27)
[2021-11-15] MEDS: SODIUM CHLORIDE 0.9% 1,000 ML IV SCH (11:48)
--- NOTE | 2021-11-15 15:07 | PROVIDER PROGRESS NOTE ---
Assessment/Plan - Problem List (1) Closed right hip fracture Qualifiers: Encounter type: initial encounter Qualified Code(s): S72.001A - Fracture of unspecified part of neck of right femur, initial encounter for closed fracture Assessment/Plan: Stable but pt is not motivated to join PT/OT activity. pt has hx of brain injury. This is Postop day #8 of right hip repair. Patient working with PT/OT. Plan is for discharge to a detention faci lity, continue consult with bilingual social worker for placement planning. Continued pain management. (2) COVID-19 Assessment/Plan: Stable. Patient is asymptomatic without fever, cough, stable O2 sat without respiratory distress. pt was Newly diagnosed on 11/11/2021 after he was tested in preparation for discharge to detention facility. Currently no need for De cadron or remdesivir. Continue to monitor. Lovenox for DVT prophylaxis. update pt's medical conditions to pt's son and daughter. (3) Seizure disorder Assessment/Plan: Stable. no more seizure On Keppra 1000 mg p.o. twice daily and Lamictal 200 mg p.o. twice daily. Phenytoin 300 mg p.o. daily and 400 mg p.o. every afternoon. Topamax 50 mg p.o. twice daily. PRN Ativan for acute seizure (4) History of coronary artery disease Assessment/Plan: stable, On metoprolol succinate 12.5 mg p.o. twice daily. Aspirin 81 mg p.o. daily. Atorvastatin 20 mg p.o. every afternoon (5) Type 2 diabetes mellitus stable, continue slide scale, Lantus, glucose check, hypoglycemia protocol. 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 He is at his baseline. 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 (7)hyponatremia Na 130, slight elevated BUN and creatinine, likely hypovolumia and hyponatremia, start with gentle IVF of NS, continue lab monitor - Current Meds Current Meds: Current Medications Generic Name Dose Route Start Last Admin Trade Name Freq PRN Reason Stop Dose Admin Acetaminophen 650 mg 11/06/21 21:18 11/15/21 04:56 Acetaminophen 325 Mg Tablet PO 650 mg Q4HR PRN Administration Pain 1 to 4 Aspirin 81 mg 11/08/21 09:00 11/15/21 10:34 Aspirin Ec 81 Mg Tablet PO 81 mg DAILY JAKE Administration Atorvastatin Calcium 20 mg 11/06/21 23:00 11/14/21 20:58 Atorvastatin 10 Mg Tablet PO 20 mg QPM JAKE Administration Calcium Carbonate/Glycine 500 mg 11/11/21 10:00 11/15/21 10:40 Calcium Carbonate Chew 500 Mg Tablet PO 500 mg BID JAKE Administration Cholecalciferol 50 mcg 11/11/21 09:00 11/15/21 10:37 Cholecalciferol 25 Mcg Tablet PO 50 mcg DAILY JAKE Administration Docusate Sodium 250 - 500 mg 11/11/21 11:00 11/15/21 10:39 Docusate Sodium 250 Mg Capsule PO 250 mg DAILY JAKE Administration Enoxaparin Sodium 40 mg 11/08/21 13:00 11/15/21 10:32 Enoxaparin 40 Mg/0.4 Ml Syringe SUBQ 40 mg DAILY JAKE Administration Finasteride 5 mg 11/08/21 09:00 11/15/21 10:38 Finasteride 5 Mg Tablet PO 5 mg DAILY JAKE Administration Sodium Chloride 1,000 mls @ 83.333 mls/hr 11/15/21 11:00 11/15/21 11:48 Normal Saline 0.9% IV 11/16/21 10:59 83.333 mls/hr .Q12H JAKE Administration Insulin Aspart 3 - 11 unit 11/09/21 12:00 11/15/21 11:48 Insulin Aspart 300 Unit/3 Ml Pen SUBQ 5 unit 0800,1200,1700,2100 [facility] Administration Protocol Insulin Glargine 10 unit 11/10/21 21:00 11/14/21 21:06 Insulin Glargine 300 Unit/3 Ml Pen SUBQ 10 unit QPM JAKE Administration Lamotrigine 25 mg 11/06/21 22:00 11/15/21 10:34 Lamotrigine 25 Mg Tablet PO 25 mg BID JAKE Administration Lamotrigine 200 mg 11/06/21 22:00 11/15/21 10:37 Lamotrigine 100 Mg Tablet PO 200 mg BID JAKE Administration Levetiracetam 1,000 mg 11/06/21 23:00 11/15/21 10:36 Levetiracetam 250 Mg Tablet PO 1,000 mg BID JAKE Administration Metoprolol Succinate 12.5 mg 11/06/21 22:00 11/15/21 10:38 Metoprolol Succinate 25 Mg Tablet PO 12.5 mg BID JAKE Administration Ondansetron HCl 4 mg 11/06/21 21:18 11/10/21 12:35 Ondansetron 4 Mg/2 Ml Vial IVP 4 mg Q6HR PRN Administration Nausea / Vomiting Oxycodone HCl 10 mg 11/06/21 21:18 11/14/21 14:45 Oxycodone 5 Mg Tablet PO 10 mg Q4HR PRN Administration Pain 8 to 10 Phenytoin Sodium 300 mg 11/07/21 09:00 11/15/21 10:33 Phenytoin Er 100 Mg Capsule PO 300 mg DAILY JAKE Administration Phenytoin Sodium 400 mg 11/06/21 23:00 11/14/21 20:59 Phenytoin Er 100 Mg Capsule PO 400 mg QPM JAKE Administration Polyethylene Glycol 17 gm 11/09/21 10:00 11/15/21 10:32 Polyethylene Glycol 3350 17 Gm Packet PO 17 gm DAILY JAKE Administration Senna 8.6 - 17.2 mg 11/11/21 11:00 11/15/21 10:39 Senna 8.6 Mg Tablet PO 8.6 mg DAILY JAKE Administration Sodium Chloride 10 ml 11/06/21 21:18 11/08/21 16:44 Sodium Chloride Flush 0.9% 10 Ml Syringe IVP 10 ml PRN PRN Administration NEEDED PER PROVIDER ORDERS Sodium Chloride 10 ml 11/07/21 01:00 11/15/21 10:33 Sodium Chloride Flush 0.9% 10 Ml Syringe IVP 10 ml 0100,0900,1700 JAKE Administration Tamsulosin HCl 0.4 mg 11/08/21 09:00 11/15/21 10:36 Tamsulosin 0.4 Mg Capsule PO 0.4 mg DAILY JAKE Administration Topiramate 50 mg 11/06/21 23:00 11/15/21 10:37 Topiramate 25 Mg Tablet PO 50 mg BID JAKE Administration - Lab Result Fish Bone Diagrams: 11/15/21 09:32 11/15/21 09:32 - Additional Planning My Orders: My Active Orders 11/15/21 11:00 Sodium Chloride 0.9% [Normal Saline 0.9%] 1,000 ml IV 83.333 mls/hr 11/16/21 05:00 BMP - BASIC METABOLIC PANEL [CHEM] DAILYLAB CBC - COMP BLD CT W/AUTO DIFF [HEME] DAILYLAB 11/17/21 05:00 BMP - BASIC METABOLIC PANEL [CHEM] DAILYLAB CBC - COMP BLD CT W/AUTO DIFF [HEME] DAILYLAB 11/18/21 05:00 BMP - BASIC METABOLIC PANEL [CHEM] DAILYLAB CBC - COMP BLD CT W/AUTO DIFF [HEME] DAILYLAB 11/19/21 05:00 BMP - BASIC METABOLIC PANEL [CHEM] DAILYLAB CBC - COMP BLD CT W/AUTO DIFF [HEME] DAILYLAB 11/20/21 05:00 BMP - BASIC METABOLIC PANEL [CHEM] DAILYLAB CBC - COMP BLD CT W/AUTO DIFF [HEME] DAILYLAB 11/21/21 05:00 BMP - BASIC METABOLIC PANEL [CHEM] DAILYLAB CBC - COMP BLD CT W/AUTO DIFF [HEME] DAILYLAB Subjective - Subjective Patient Reports: Resting Comfortably Objective Vital Signs: Vital Signs - 24 hr 11/14/21 11/14/21 11/15/21 17:00 20:52 00:27 Temperature 36.5 C 37.0 C 37.0 C Heart Rate [ 78 71 79 Brachial] Respiratory 20 16 18 Rate Blood Pressure 115/65 [Left Brachial artery] Blood Pressure 114/62 99/73 [Right Brachial artery] O2 Saturation 99 97 96 11/15/21 11/15/21 11/15/21 00:40 04:55 07:47 Temperature 36.8 C 36.6 C Heart Rate [ 76 77 75 Brachial] Respiratory 16 18 Rate Blood Pressure [Left Brachial artery] Blood Pressure 122/67 108/64 108/67 [Right Brachial artery] O2 Saturation 95 96 11/15/21 11:40 Temperature 36.8 C Heart Rate [ 82 Brachial] Respiratory 16 Rate Blood Pressure [Left Brachial artery] Blood Pressure 121/64 [Right Brachial artery] O2 Saturation 98 Oxygen O2 Source [With Activity] Room air O2 Source Room air I&O (Last 24 Hrs): Intake and Output Totals x24h 11/13/21 11/14/21 11/15/21 23:59 23:59 23:59 Intake Total 1150 1430 700 Output Total 100 Balance 1150 1330 700 General: Alert, No acute distress HEENT: Atraumatic Neck: Supple Lymphatic: no adenopathy Neuro: Alert, Non Focal Cardiovascular: Regular rate, Normal S1, Normal S2 Respiratory: Chest non-tender, No respiratory distress Abdomen: Normal bowel sounds, Soft Extremities: Normal pulses - Results Results: Laboratory Results WBC 7.5 x10^3/uL (4.8-10.8) 11/15/21 09: RBC 3.99 10^6/uL (4.70-6.10) L 11/15/21 09:32 Hgb 12.0 g/dL (14.0-18.0) L 11/15/21: Hct 36.9 % (42.0-52.0) L 11/15/21 09: MCV 92.5 fL (80.0-94.0) 11/15/21 09: MCH 30.1 pg (27.0-31.0) 11/15/21: MCHC 32.5 g/dL (32.0-36.0) 11/15/21 09: RDW 13.2 % (12.0-15.0) 11/15/21 09:32 Plt Count 519 10^3/uL (130-450) H 11/15/21 09: MPV 9.0 fL (7.4-11.4) 11/15/21 09:32 Neut # (Auto) 4.6 10^3/uL (1.5-6.6) 11/15/21 09:32 Lymph # (Auto) 1.6 10^3/uL (1.5-3.5) 11/15/21 09:32 [place] # (Auto) 0.9 10^3/uL (0.0-1.0) 11/15/21: Eos # (Auto) 0.3 10^3/uL (0.0-0.7) 11/15/21 09:32 Baso # (Auto) 0.1 10^3/uL (0.0-0.1) 11/15/21 09:32 Absolute Nucleated RBC 0.00 x10^3/uL 11/15/21: Nucleated RBC % 0.0 /100WBC 11/15/21 09:32 PT 11.7 secs (9.9-12.6) 11/06/21 21:20 INR 1.1 (0.8-1.2) 11/06/21 21:20 APTT 25.3 secs (24.9-33.3) 11/06/21 21:20 Sodium 130 mmol/L (135-145) L 11/15/21 09:32 Potassium 4.8 mmol/L (3.5-5.0) 11/15/21 09:32 Chloride 96 mmol/L (101-111) L 11/15/21 09:32 Carbon Dioxide 26 mmol/L (21-32) 11/15/21 09:32 Anion Gap 8.0 (6-13) 11/15/21 09:32 BUN 24 mg/dL (6-20) H 11/15/21 09:32 Creatinine 1.1 mg/dL (0.6-1.2) 11/15/21 09:32 Estimated GFR (MDRD) 66 (>89) L 11/15/21 09:32 Glucose 274 mg/dL (70-100) H 11/15/21 09:32 POC Whole Bld Glucose 203 mg/dL (70 - 100) H 11/15/21 11:19 Estimat Average Glucose 126 mg/dL (70-100) H 11/08/21 06:45 Hemoglobin A1c % 6.0 % (4.27-6.07) 11/08/21 06:45 Calcium 8.8 mg/dL (8.5-10.3) 11/15/21 09:32 Total Bilirubin 0.5 mg/dL (0.2-1.0) 11/06/21 21:20 AST 35 IU/L (10-42) 11/06/21 21:20 ALT 39 IU/L (10-60) 11/06/21 21:20 Alkaline Phosphatase 91 IU/L (42-121) 11/06/21 21:20 Total Protein 8.7 g/dL (6.7-8.2) H 11/06/21 21:20 Albumin 4.4 g/dL (3.2-5.5) 11/06/21 21:20 Globulin 4.3 g/dL (2.1-4.2) H 11/06/21 21:20 Albumin/Globulin Ratio 1.0 (1.0-2.2) 11/06/21 21:20 Lipase 38 U/L (22-51) 11/06/21 21:20 25-OH Vitamin D Total 15 ng/mL (30-100) L 11/10/21 11:14 Urine Color DARK YELLOW 11/06/21 21:12 Urine Clarity CLEAR (CLEAR) 11/06/21 21:12 Urine pH 6.0 PH (5.0-7.5) 11/06/21 21:12 Ur Specific [place] 1.020 (1.002-1.030) 11/06/21 21:12 Urine Protein TRACE mg/dL (NEGATIVE) 11/06/21 21:12 Urine Glucose (UA) 100 mg/dL (NEGATIVE) H 11/06/21 21:12 Urine Ketones NEGATIVE mg/dL (NEGATIVE) 11/06/21 21:12 Urine Occult Blood NEGATIVE (NEGATIVE) 11/06/21 21:12 Urine Nitrite NEGATIVE (NEGATIVE) 11/06/21 21:12 Urine Bilirubin NEGATIVE (NEGATIVE) 11/06/21 21:12 Urine Urobilinogen 0.2 (NORMAL) E.U./dL (NORMAL) 11/06/21 21:12 Ur Leukocyte Esterase NEGATIVE (NEGATIVE) 11/06/21 21:12 Ur Microscopic Review NOT INDICATED 11/06/21 21:12 Urine Culture Comments NOT INDICATED 11/06/21 21:12 Nasal Adenovirus (PCR) NOT DETECTED 11/11/21 11:30 Nasal B. parapertussis DNA (PCR) NOT DETECTED 11/11/21 11:30 Nasal Coronavir 229E PCR NOT DETECTED 11/11/21 11:30 Nasal Coronavir HKU1 PCR NOT DETECTED 11/11/21 11:30 Nasal Coronavir NL63 PCR NOT DETECTED 11/11/21 11:30 Nasal Coronavir OC43 PCR NOT DETECTED 11/11/21 11:30 Nasal Enterovir/Rhinovir PCR NOT DETECTED 11/11/21 11:30 Nasal Influenza B PCR NOT DETECTED 11/11/21 11:30 Nasal Influenza A PCR NOT DETECTED 11/11/21 11:30 Nasal Parainfluen 1 PCR NOT DETECTED 11/11/21 11:30 Nasal Parainfluen 2 PCR NOT DETECTED 11/11/21 11:30 Nasal Parainfluen 3 PCR NOT DETECTED 11/11/21 11:30 Nasal Parainfluen 4 PCR NOT DETECTED 11/11/21 11:30 Nasal RSV (PCR) NOT DETECTED 11/11/21 11:30 Nasal B.pertussis DNA PCR NOT DETECTED 11/11/21 11:30 Nasal C.pneumoniae (PCR) NOT DETECTED 11/11/21 11:30 Akhil Human Metapneumo PCR NOT DETECTED 11/11/21 11:30 Nasal M.pneumoniae (PCR) NOT DETECTED 11/11/21 11:30 Nasal SARS-CoV-2 (PCR) DETECTED A 11/11/21 11:30 Phenytoin 25.4 ug/mL 11/08/21 08:39 Lamotrigine 2.5 mcg/mL (4.0-18.0) L 11/08/21 08:39 Levetiracetam 17.6 mcg/mL 11/08/21 08:39 - Procedures Procedures: Procedures EXCISION OF ASCENDING COLON, ENDO (03/29/17) EXCISION OF DESCENDING COLON, ENDO (03/29/17) EXCISION OF RECTUM, ENDO (03/29/17) INSERTION OF INFUSION DEV INTO SUP VENA CAVA, PERC APPROACH (11/05/17) ABX Reporting Has patient been on IV antibiotics over the past 48 hours?: No Current Medications - Current Medications Current Medications: Active Medications Acetaminophen (Acetaminophen 325 Mg Tablet) 650 mg PO Q4HR PRN PRN Reason: Pain 1 to 4 Last Admin: 11/15/21 04:56 Dose: 650 mg Aspirin (Aspirin Ec 81 Mg Tablet) 81 mg PO DAILY [facility] Last Admin: 11/15/21 10:34 Dose: 81 mg Atorvastatin Calcium (Atorvastatin 10 Mg Tablet) 20 mg PO QPM [facility] Last Admin: 11/14/21 20:58 Dose: 20 mg Calcium Carbonate/Glycine (Calcium Carbonate Chew 500 Mg Tablet) 500 mg PO BID [facility] Last Admin: 11/15/21 10:40 Dose: 500 mg Cholecalciferol (Cholecalciferol 25 Mcg Tablet) 50 mcg PO DAILY [facility] Last Admin: 11/15/21 10:37 Dose: 50 mcg Docusate Sodium (Docusate Sodium 250 Mg Capsule) 250 - 500 mg PO DAILY [facility] Last Admin: 11/15/21 10:39 Dose: 250 mg Enoxaparin Sodium (Enoxaparin 40 Mg/0.4 Ml Syringe) 40 mg SUBQ DAILY [facility] Last Admin: 11/15/21 10:32 Dose: 40 mg Finasteride (Finasteride 5 Mg Tablet) 5 mg PO DAILY [facility] Last Admin: 11/15/21 10:38 Dose: 5 mg Sodium Chloride (Normal Saline 0.9%) 1,000 mls @ 83.333 mls/hr IV .Q12H [facility] Stop: 11/16/21 10:59 Last Admin: 11/15/21 11:48 Dose: 83.333 mls/hr Insulin Aspart (Insulin Aspart 300 Unit/3 Ml Pen) 3 - 11 unit SUBQ 0800,1200,1700,2100 [facility]; Protocol Last Admin: 11/15/21 11:48 Dose: 5 unit Insulin Glargine (Insulin Glargine 300 Unit/3 Ml Pen) 10 unit SUBQ QPM [facility] Last Admin: 11/14/21 21:06 Dose: 10 unit Lamotrigine (Lamotrigine 25 Mg Tablet) 25 mg PO BID [facility] Last Admin: 11/15/21 10:34 Dose: 25 mg Lamotrigine (Lamotrigine 100 Mg Tablet) 200 mg PO BID [facility] Last Admin: 11/15/21 10:37 Dose: 200 mg Levetiracetam (Levetiracetam 250 Mg Tablet) 1,000 mg PO BID [facility] Last Admin: 11/15/21 10:36 Dose: 1,000 mg Lorazepam (Lorazepam 2 Mg/Ml Vial) 2 mg IVP Q2H PRN PRN Reason: Seizure Metoprolol Succinate (Metoprolol Succinate 25 Mg Tablet) 12.5 mg PO BID [facility] Last Admin: 11/15/21 10:38 Dose: 12.5 mg Ondansetron HCl (Ondansetron Odt 4 Mg Tablet) 4 mg TL Q6HR PRN PRN Reason: Nausea / Vomiting Ondansetron HCl (Ondansetron 4 Mg/2 Ml Vial) 4 mg IVP Q6HR PRN PRN Reason: Nausea / Vomiting Last Admin: 11/10/21 12:35 Dose: 4 mg Oxycodone HCl (Oxycodone 5 Mg Tablet) 10 mg PO Q4HR PRN PRN Reason: Pain 8 to 10 Last Admin: 11/14/21 14:45 Dose: 10 mg Phenytoin Sodium (Phenytoin Er 100 Mg Capsule) 300 mg PO DAILY [facility] Last Admin: 11/15/21 10:33 Dose: 300 mg Phenytoin Sodium (Phenytoin Er 100 Mg Capsule) 400 mg PO QPM [facility] Last Admin: 11/14/21 20:59 Dose: 400 mg Polyethylene Glycol (Polyethylene Glycol 3350 17 Gm Packet) 17 gm PO DAILY [facility] Last Admin: 11/15/21 10:32 Dose: 17 gm Senna (Senna 8.6 Mg Tablet) 8.6 - 17.2 mg PO DAILY [facility] Last Admin: 11/15/21 10:39 Dose: 8.6 mg Sodium Chloride (Sodium Chloride Flush 0.9% 10 Ml Syringe) 10 ml IVP PRN PRN PRN Reason: NEEDED PER PROVIDER ORDERS Last Admin: 11/08/21 16:44 Dose: 10 ml Sodium Chloride (Sodium Chloride Flush 0.9% 10 Ml Syringe) 10 ml IVP 0100,0900,1700 [facility] Last Admin: 11/15/21 10:33 Dose: 10 ml Tamsulosin HCl (Tamsulosin 0.4 Mg Capsule) 0.4 mg PO DAILY [facility] Last Admin: 11/15/21 10:36 Dose: 0.4 mg Topiramate (Topiramate 25 Mg Tablet) 50 mg PO BID [facility] Last Admin: 11/15/21 10:37 Dose: 50 mg Phenytoin Sodium Extended [Dilantin] 300 mg PO DAILY 05/18/13 [id number] ER [Glucotrol Xl] 2.5 mg PO DAILY 12/19/17 Metoprolol Succinate 12.5 mg PO BID 09/04/18
[2021-11-15] MEDS: ATORVASTATIN 10 MG TABLET PO SCH (21:26)
[2021-11-15] MEDS: INSULIN GLARGINE 300 UNIT/3 ML PEN SUBQ SCH (21:27)
[2021-11-16] MEDS: SODIUM CHLORIDE 0.9% 1,000 ML IV SCH (00:07)
[2021-11-16] MEDS: SODIUM CHLORIDE FLUSH 0.9% 10 ML SYRINGE IVP SCH ×3 (00:07→17:43)
[2021-11-16 06:10] LABS: BASOPHILS # (AUTO) 0.1 10^3/uL (0.0-0.1); BASOPHILS % (AUTO) 0.8 %; EOSINOPHILS # (AUTO) 0.2 10^3/uL (0.0-0.7); EOSINOPHILS % (AUTO) 3.4 %; HCT - HEMATOCRIT 34.3 % (42.0-52.0); LYMPHOCYTES # (AUTO) 1.5 10^3/uL (1.5-3.5); LYMPHOCYTES % (AUTO) 23.7 %; MEAN CORPUSCULAR HEMOGLOBIN 29.6 pg (27.0-31.0); MEAN CORPUSCULAR HGB CONC 32.1 g/dL (32.0-36.0); MEAN CORPUSCULAR VOLUME 92.2 fL (80.0-94.0); MEAN PLATELET VOLUME 8.7 fL (7.4-11.4); MONOCYTES # (AUTO) 0.8 10^3/uL (0.0-1.0); MONOCYTES % (AUTO) 11.8 %; NEUTROPHILS # (AUTO) 3.9 10^3/uL (1.5-6.6); NEUTROPHILS % (AUTO) 59.8 %; PLT - PLATELET COUNT 535 10^3/uL (130-450); RED BLOOD COUNT 3.72 10^6/uL (4.70-6.10); RED CELL DISTRIBUTION WIDTH 13.3 % (12.0-15.0); WHITE BLOOD COUNT 6.5 x10^3/uL (4.8-10.8)
[2021-11-16 06:17] LABS: CALCIUM 8.6 mg/dL (8.5-10.3); CREATININE 0.9 mg/dL (0.6-1.2); POTASSIUM 4.4 mmol/L (3.5-5.0)
[2021-11-16] MEDS ORDERED: LACTULOSE 10 GM /15 ML UDC PO ONE (07:52)
[2021-11-16] MEDS: polyethylene glycoL 3350 17 GM PACKET PO SCH (10:43)
[2021-11-16] MEDS: CALCIUM CARBONATE CHEW 500 MG TABLET PO SCH ×2 (10:45→21:59)
[2021-11-16] MEDS: PHENYTOIN ER 100 MG CAPSULE PO SCH ×2 (10:45→21:59)
[2021-11-16] MEDS: lamoTRIgine 100 MG TABLET PO SCH ×2 (10:46→21:58)
[2021-11-16] MEDS: METOPROLOL SUCCINATE 25 MG TABLET PO SCH ×2 (10:47→22:00)
[2021-11-16] MEDS: ASPIRIN EC 81 MG TABLET PO SCH (10:47)
[2021-11-16] MEDS: FINASTERIDE 5 MG TABLET PO SCH (10:47)
[2021-11-16] MEDS: lamoTRIgine 25 MG TABLET PO SCH ×2 (10:48→21:58)
[2021-11-16] MEDS: SENNA 8.6 MG TABLET PO SCH (10:48)
[2021-11-16] MEDS: CHOLECALCIFEROL 25 MCG TABLET PO SCH (10:49)
[2021-11-16] MEDS: TOPIRAMATE 25 MG TABLET PO SCH ×2 (10:49→21:58)
[2021-11-16] MEDS: levETIRAcetam 250 MG TABLET PO SCH ×2 (10:50→21:58)
[2021-11-16] MEDS: DOCUSATE SODIUM 250 MG CAPSULE PO SCH (10:52)
[2021-11-16] MEDS: TAMSULOSIN 0.4 MG CAPSULE PO SCH (10:52)
[2021-11-16] MEDS: ENOXAPARIN 40 MG/0.4 ML SYRINGE SUBQ SCH (10:53)
[2021-11-16] MEDS: INSULIN ASPART 300 UNIT/3 ML PEN SUBQ SCH ×4 (10:54→21:59)
--- NOTE | 2021-11-16 14:28 | PROVIDER PROGRESS NOTE ---
Assessment/Plan - Problem List (1) Closed right hip fracture Qualifiers: Encounter type: initial encounter Qualified Code(s): S72.001A - Fracture of unspecified part of neck of right femur, initial encounter for closed fracture Assessment/Plan: 11/16 pt has hx of brain injury, he did not followup fairly with PT/OT instruction to have the evaluation in the treatment. Discussed and updated patient condition to patient's son, he will come to hospital with Nasal Mask to see his father because of Covid 19, he will discuss Disposition planing With social service technician. Stable but pt is not motivated to join PT/OT activity. pt has hx of brain injury. This is Postop day #8 of right hip repair. Patient working with PT/OT. Plan is for discharge to a [facility] facility, continue consult with social service technician for placement planning. Continued pain management. (2) COVID-19 Assessment/Plan: Stable. Patient is asymptomatic without fever, cough, stable O2 sat without respiratory distress. pt was Newly diagnosed on 11/11/2021 after he was tested in preparation for discharge to [facility] facility. Currently no need for Decadron or remdesivir. Continue to monitor. Lovenox for DVT prophylaxis. update pt's medical conditions to pt's son and daughter. (3) Seizure disorder Assessment/Plan: Stable. no more seizure On Keppra 1000 mg p.o. twice daily and Lamictal 200 mg p.o. twice daily. Phenytoin 300 mg p.o. daily and 400 mg p.o. every afternoon. Topamax 50 mg p.o. twice daily. PRN Ativan for acute seizure (4) History of coronary artery disease Assessment/Plan: stable, On metoprolol succinate 12.5 mg p.o. twice daily. Aspirin 81 mg p.o. daily. Atorvastatin 20 mg p.o. every afternoon (5) Type 2 diabetes mellitus stable, continue slide scale, Lantus, glucose check, hypoglycemia protocol. 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 He is at his baseline. 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 (7)hyponatremia Na 130, slight elevated BUN and creatinine, likely hypovolumia and hyponatremia, start with gentle IVF of NS, continue lab monitor - Current Meds Current Meds: Current Medications Generic Name Dose Route Start Last Admin Trade Name Freq PRN Reason Stop Dose Admin Acetaminophen 650 mg 11/06/21 21:18 11/15/21 04:56 Acetaminophen 325 Mg Tablet PO 650 mg Q4HR PRN Administration Pain 1 to 4 Aspirin 81 mg 11/08/21 09:00 11/16/21 10:47 Aspirin Ec 81 Mg Tablet PO 81 mg DAILY JAKE Administration Atorvastatin Calcium 20 mg 11/06/21 23:00 11/15/21 21:26 Atorvastatin 10 Mg Tablet PO 20 mg QPM JAKE Administration Calcium Carbonate/Glycine 500 mg 11/11/21 10:00 11/16/21 10:45 Calcium Carbonate Chew 500 Mg Tablet PO 500 mg BID JAKE Administration Cholecalciferol 50 mcg 11/11/21 09:00 11/16/21 10:49 Cholecalciferol 25 Mcg Tablet PO 50 mcg DAILY [facility] Administration Docusate Sodium 250 - 500 mg 11/11/21 11:00 11/16/21 10:52 Docusate Sodium 250 Mg Capsule PO 250 mg DAILY [facility] Administration Enoxaparin Sodium 40 mg 11/08/21 13:00 11/16/21 10:53 Enoxaparin 40 Mg/0.4 Ml Syringe SUBQ 40 mg DAILY [facility] Administration Finasteride 5 mg 11/08/21 09:00 11/16/21 10:47 Finasteride 5 Mg Tablet PO 5 mg DAILY [facility] Administration Insulin Aspart 3 - 11 unit 11/09/21 12:00 11/16/21 12:03 Insulin Aspart 300 Unit/3 Ml Pen SUBQ 7 unit 0800,1200,1700,2100 [facility] Administration Protocol Insulin Glargine 10 unit 11/10/21 21:00 11/15/21 21:27 Insulin Glargine 300 Unit/3 Ml Pen SUBQ 10 unit QPM JAKE Administration Lamotrigine 25 mg 11/06/21 22:00 11/16/21 10:48 Lamotrigine 25 Mg Tablet PO 25 mg BID JAKE Administration Lamotrigine 200 mg 11/06/21 22:00 11/16/21 10:46 Lamotrigine 100 Mg Tablet PO 200 mg BID JAKE Administration Levetiracetam 1,000 mg 11/06/21 23:00 11/16/21 10:50 Levetiracetam 250 Mg Tablet PO 1,000 mg BID JAKE Administration Metoprolol Succinate 12.5 mg 11/06/21 22:00 11/16/21 10:47 Metoprolol Succinate 25 Mg Tablet PO 12.5 mg BID JAKE Administration Ondansetron HCl 4 mg 11/06/21 21:18 11/10/21 12:35 Ondansetron 4 Mg/2 Ml Vial IVP 4 mg Q6HR PRN Administration Nausea / Vomiting Oxycodone HCl 10 mg 11/06/21 21:18 11/14/21 14:45 Oxycodone 5 Mg Tablet PO 10 mg Q4HR PRN Administration Pain 8 to 10 Phenytoin Sodium 300 mg 11/07/21 09:00 11/16/21 10:45 Phenytoin Er 100 Mg Capsule PO 300 mg DAILY JAKE Administration Phenytoin Sodium 400 mg 11/06/21 23:00 11/15/21 21:24 Phenytoin Er 100 Mg Capsule PO 400 mg QPM JAKE Administration Polyethylene Glycol 17 gm 11/09/21 10:00 11/16/21 10:43 Polyethylene Glycol 3350 17 Gm Packet PO 17 gm DAILY JAKE Administration Senna 8.6 - 17.2 mg 11/11/21 11:00 11/16/21 10:48 Senna 8.6 Mg Tablet PO 8.6 mg DAILY JAKE Administration Sodium Chloride 10 ml 11/06/21 21:18 11/08/21 16:44 Sodium Chloride Flush 0.9% 10 Ml Syringe IVP 10 ml PRN PRN Administration NEEDED PER PROVIDER ORDERS Sodium Chloride 10 ml 11/07/21 01:00 11/16/21 13:26 Sodium Chloride Flush 0.9% 10 Ml Syringe IVP Not Given 0100,0900,1700 JAKE Tamsulosin HCl 0.4 mg 11/08/21 09:00 11/16/21 10:52 Tamsulosin 0.4 Mg Capsule PO 0.4 mg DAILY JAKE Administration Topiramate 50 mg 11/06/21 23:00 11/16/21 10:49 Topiramate 25 Mg Tablet PO 50 mg BID JAKE Administration - Lab Result Fish Bone Diagrams: 11/16/21 05:54 11/16/21 05:54 - Additional Planning My Orders: My Active Orders 11/16/21 15:00 NS 0.9% @ 83.333 mls/hr Sodium Chloride 0.9% [Normal Saline 0.9%] 1,000 ml IV 83.333 mls/hr 11/17/21 05:00 BMP - BASIC METABOLIC PANEL [CHEM] DAILYLAB CBC - COMP BLD CT W/AUTO DIFF [HEME] DAILYLAB 11/18/21 05:00 BMP - BASIC METABOLIC PANEL [CHEM] DAILYLAB CBC - COMP BLD CT W/AUTO DIFF [HEME] DAILYLAB 11/19/21 05:00 BMP - BASIC METABOLIC PANEL [CHEM] DAILYLAB CBC - COMP BLD CT W/AUTO DIFF [HEME] DAILYLAB 11/20/21 05:00 BMP - BASIC METABOLIC PANEL [CHEM] DAILYLAB CBC - COMP BLD CT W/AUTO DIFF [HEME] DAILYLAB 11/21/21 05:00 BMP - BASIC METABOLIC PANEL [CHEM] DAILYLAB CBC - COMP BLD CT W/AUTO DIFF [HEME] DAILYLAB Subjective - Subjective Patient Reports: Resting Comfortably Objective Vital Signs: Vital Signs - 24 hr 11/15/21 11/15/21 11/15/21 17:00 19:19 21:29 Temperature 36.7 C 37.0 C Heart Rate [ 87 80 87 Brachial] Respiratory 18 18 Rate Blood Pressure 113/76 [Left Brachial artery] Blood Pressure 105/66 104/47 L [Right Brachial artery] O2 Saturation 100 98 11/16/21 11/16/21 11/16/21 00:07 06:17 07:41 Temperature 36.9 C 36.8 C 36.7 C Heart Rate [ 75 71 91 Brachial] Respiratory 18 20 20 Rate Blood Pressure 108/66 [Left Brachial artery] Blood Pressure 119/61 110/55 L [Right Brachial artery] O2 Saturation 99 96 99 11/16/21 11:28 Temperature 37 C Heart Rate [ 78 Brachial] Respiratory 16 Rate Blood Pressure [Left Brachial artery] Blood Pressure 103/67 [Right Brachial artery] O2 Saturation 97 Oxygen O2 Source [With Activity] Room air O2 Source Room air I&O (Last 24 Hrs): Intake and Output Totals x24h 11/14/21 11/15/21 11/16/21 23:59 23:59 23:59 Intake Total 1430 1940 1600 Output Total 100 Balance 1330 1940 1600 General: Alert, No acute distress HEENT: Atraumatic Neck: Supple Lymphatic: no adenopathy Neuro: Alert, Non Focal Cardiovascular: Regular rate, Normal S1, Normal S2 Respiratory: Chest non-tender, No respiratory distress Abdomen: Normal bowel sounds, Soft Extremities: Normal pulses - Results Results: Laboratory Results WBC 6.5 x10^3/uL (4.8-10.8) 11/16/21 05:54 RBC 3.72 10^6/uL (4.70-6.10) L 11/16/21 05:54 Hgb 11.0 g/dL (14.0-18.0) L 11/16/21 05:54 Hct 34.3 % (42.0-52.0) L 11/16/21 05:54 MCV 92.2 fL (80.0-94.0) 11/16/21 05:54 MCH 29.6 pg (27.0-31.0) 11/16/21 05:54 MCHC 32.1 g/dL (32.0-36.0) 11/16/21 05:54 RDW 13.3 % (12.0-15.0) 11/16/21 05:54 Plt Count 535 10^3/uL (130-450) H 11/16/21 05:54 MPV 8.7 fL (7.4-11.4) 11/16/21 05:54 Neut # (Auto) 3.9 10^3/uL (1.5-6.6) 11/16/21 05:54 Lymph # (Auto) 1.5 10^3/uL (1.5-3.5) 11/16/21 05:54 [place] # (Auto) 0.8 10^3/uL (0.0-1.0) 11/16/21 05:54 Eos # (Auto) 0.2 10^3/uL (0.0-0.7) 11/16/21 05:54 Baso # (Auto) 0.1 10^3/uL (0.0-0.1) 11/16/21 05:54 Absolute Nucleated RBC 0.00 x10^3/uL 11/16/21 05:54 Nucleated RBC % 0.0 /100WBC 11/16/21 05:54 PT 11.7 secs (9.9-12.6) 11/06/21 21:20 INR 1.1 (0.8-1.2) 11/06/21 21:20 APTT 25.3 secs (24.9-33.3) 11/06/21 21:20 Sodium 135 mmol/L (135-145) 11/16/21 05:54 Potassium 4.4 mmol/L (3.5-5.0) 11/16/21 05:54 Chloride 102 mmol/L (101-111) 11/16/21 05:54 Carbon Dioxide 25 mmol/L (21-32) 11/16/21 05:54 Anion Gap 8.0 (6-13) 11/16/21 05:54 BUN 22 mg/dL (6-20) H 11/16/21 05:54 Creatinine 0.9 mg/dL (0.6-1.2) 11/16/21 05:54 Estimated GFR (MDRD) 83 (>89) L 11/16/21 05:54 Glucose 143 mg/dL (70-100) H 11/16/21 05:54 POC Whole Bld Glucose 233 mg/dL (70 - 100) H 11/16/21 11:24 Estimat Average Glucose 126 mg/dL (70-100) H 11/08/21 06:45 Hemoglobin A1c % 6.0 % (4.27-6.07) 11/08/21 06:45 Calcium 8.6 mg/dL (8.5-10.3) 11/16/21 05:54 Total Bilirubin 0.5 mg/dL (0.2-1.0) 11/06/21 21:20 AST 35 IU/L (10-42) 11/06/21 21:20 ALT 39 IU/L (10-60) 11/06/21 21:20 Alkaline Phosphatase 91 IU/L (42-121) 11/06/21 21:20 Total Protein 8.7 g/dL (6.7-8.2) H 11/06/21 21:20 Albumin 4.4 g/dL (3.2-5.5) 11/06/21 21:20 Globulin 4.3 g/dL (2.1-4.2) H 11/06/21 21:20 Albumin/Globulin Ratio 1.0 (1.0-2.2) 11/06/21 21:20 Lipase 38 U/L (22-51) 11/06/21 21:20 25-OH Vitamin D Total 15 ng/mL (30-100) L 11/10/21 11:14 Urine Color DARK YELLOW 11/06/21 21:12 Urine Clarity CLEAR (CLEAR) 11/06/21 21:12 Urine pH 6.0 PH (5.0-7.5) 11/06/21 21:12 Ur Specific [place] 1.020 (1.002-1.030) 11/06/21 21:12 Urine Protein TRACE mg/dL (NEGATIVE) 11/06/21 21:12 Urine Glucose (UA) 100 mg/dL (NEGATIVE) H 11/06/21 21:12 Urine Ketones NEGATIVE mg/dL (NEGATIVE) 11/06/21 21:12 Urine Occult Blood NEGATIVE (NEGATIVE) 11/06/21 21:12 Urine Nitrite NEGATIVE (NEGATIVE) 11/06/21 21:12 Urine Bilirubin NEGATIVE (NEGATIVE) 11/06/21 21:12 Urine Urobilinogen 0.2 (NORMAL) E.U./dL (NORMAL) 11/06/21 21:12 Ur Leukocyte Esterase NEGATIVE (NEGATIVE) 11/06/21 21:12 Ur Microscopic Review NOT INDICATED 11/06/21 21:12 Urine Culture Comments NOT INDICATED 11/06/21 21:12 Nasal Adenovirus (PCR) NOT DETECTED 11/11/21 11:30 Nasal B. parapertussis DNA (PCR) NOT DETECTED 11/11/21 11:30 Nasal Coronavir 229E PCR NOT DETECTED 11/11/21 11:30 Nasal Coronavir HKU1 PCR NOT DETECTED 11/11/21 11:30 Nasal Coronavir NL63 PCR NOT DETECTED 11/11/21 11:30 Nasal Coronavir OC43 PCR NOT DETECTED 11/11/21 11:30 Nasal Enterovir/Rhinovir PCR NOT DETECTED 11/11/21 11:30 Nasal Influenza B PCR NOT DETECTED 11/11/21 11:30 Nasal Influenza A PCR NOT DETECTED 11/11/21 11:30 Nasal Parainfluen 1 PCR NOT DETECTED 11/11/21 11:30 Nasal Parainfluen 2 PCR NOT DETECTED 11/11/21 11:30 Nasal Parainfluen 3 PCR NOT DETECTED 11/11/21 11:30 Nasal Parainfluen 4 PCR NOT DETECTED 11/11/21 11:30 Nasal RSV (PCR) NOT DETECTED 11/11/21 11:30 Nasal B.pertussis DNA PCR NOT DETECTED 11/11/21 11:30 Nasal C.pneumoniae (PCR) NOT DETECTED 11/11/21 11:30 Akhil Human Metapneumo PCR NOT DETECTED 11/11/21 11:30 Nasal M.pneumoniae (PCR) NOT DETECTED 11/11/21 11:30 Nasal SARS-CoV-2 (PCR) DETECTED A 11/11/21 11:30 Phenytoin 25.4 ug/mL 11/08/21 08:39 Lamotrigine 2.5 mcg/mL (4.0-18.0) L 11/08/21 08:39 Levetiracetam 17.6 mcg/mL 11/08/21 08:39 - Procedures Procedures: Procedures EXCISION OF ASCENDING COLON, ENDO (03/29/17) EXCISION OF DESCENDING COLON, ENDO (03/29/17) EXCISION OF RECTUM, ENDO (03/29/17) INSERTION OF INFUSION DEV INTO SUP VENA CAVA, PERC APPROACH (11/05/17) ABX Reporting Has patient been on IV antibiotics over the past 48 hours?: No Current Medications - Current Medications Current Medications: Active Medications Acetaminophen (Acetaminophen 325 Mg Tablet) 650 mg PO Q4HR PRN PRN Reason: Pain 1 to 4 Last Admin: 11/15/21 04:56 Dose: 650 mg Aspirin (Aspirin Ec 81 Mg Tablet) 81 mg PO DAILY [facility] Last Admin: 11/16/21 10:47 Dose: 81 mg Atorvastatin Calcium (Atorvastatin 10 Mg Tablet) 20 mg PO QPM [facility] Last Admin: 11/15/21 21:26 Dose: 20 mg Calcium Carbonate/Glycine (Calcium Carbonate Chew 500 Mg Tablet) 500 mg PO BID [facility] Last Admin: 11/16/21 10:45 Dose: 500 mg Cholecalciferol (Cholecalciferol 25 Mcg Tablet) 50 mcg PO DAILY [facility] Last Admin: 11/16/21 10:49 Dose: 50 mcg Docusate Sodium (Docusate Sodium 250 Mg Capsule) 250 - 500 mg PO DAILY [facility] Last Admin: 11/16/21 10:52 Dose: 250 mg Enoxaparin Sodium (Enoxaparin 40 Mg/0.4 Ml Syringe) 40 mg SUBQ DAILY [facility] Last Admin: 11/16/21 10:53 Dose: 40 mg Finasteride (Finasteride 5 Mg Tablet) 5 mg PO DAILY [facility] Last Admin: 11/16/21 10:47 Dose: 5 mg Sodium Chloride (Normal Saline 0.9%) 1,000 mls @ 83.333 mls/hr IV .Q12H [facility] Stop: 11/17/21 02:59 Insulin Aspart (Insulin Aspart 300 Unit/3 Ml Pen) 3 - 11 unit SUBQ 0800,1200 ,1700,2100 [facility]; Protocol Last Admin: 11/16/21 12:03 Dose: 7 unit Insulin Glargine (Insulin Glargine 300 Unit/3 Ml Pen) 10 unit SUBQ QPM [facility] Last Admin: 11/15/21 21:27 Dose: 10 unit Lamotrigine (Lamotrigine 25 Mg Tablet) 25 mg PO BID [facility] Last Admin: 11/16/21 10:48 Dose: 25 mg Lamotrigine (Lamotrigine 100 Mg Tablet) 200 mg PO BID [facility] Last Admin: 11/16/21 10:46 Dose: 200 mg Levetiracetam (Levetiracetam 250 Mg Tablet) 1,000 mg PO BID [facility] Last Admin: 11/16/21 10:50 Dose: 1,000 mg Lorazepam (Lorazepam 2 Mg/Ml Vial) 2 mg IVP Q2H PRN PRN Reason: Seizure Metoprolol Succinate (Metoprolol Succinate 25 Mg Tablet) 12.5 mg PO BID [facility] Last Admin: 11/16/21 10:47 Dose: 12.5 mg Ondansetron HCl (Ondansetron Odt 4 Mg Tablet) 4 mg TL Q6HR PRN PRN Reason: Nausea / Vomiting Ondansetron HCl (Ondansetron 4 Mg/2 Ml Vial) 4 mg IVP Q6HR PRN PRN Reason: Nausea / Vomiting Last Admin: 11/10/21 12:35 Dose: 4 mg Oxycodone HCl (Oxycodone 5 Mg Tablet) 10 mg PO Q4HR PRN PRN Reason: Pain 8 to 10 Last Admin: 11/14/21 14:45 Dose: 10 mg Phenytoin Sodium (Phenytoin Er 100 Mg Capsule) 300 mg PO DAILY [facility] Last Admin: 11/16/21 10:45 Dose: 300 mg Phenytoin Sodium (Phenytoin Er 100 Mg Capsule) 400 mg PO QPM [facility] Last Admin: 11/15/21 21:24 Dose: 400 mg Polyethylene Glycol (Polyethylene Glycol 3350 17 Gm Packet) 17 gm PO DAILY [facility] Last Admin: 11/16/21 10:43 Dose: 17 gm Senna (Senna 8.6 Mg Tablet) 8.6 - 17.2 mg PO DAILY [facility] Last Admin: 11/16/21 10:48 Dose: 8.6 mg Sodium Chloride (Sodium Chloride Flush 0.9% 10 Ml Syringe) 10 ml IVP PRN PRN PRN Reason: NEEDED PER PROVIDER ORDERS Last Admin: 11/08/21 16:44 Dose: 10 ml Sodium Chloride (Sodium Chloride Flush 0.9% 10 Ml Syringe) 10 ml IVP 0100,0900,1700 [facility] Last Admin: 11/16/21 13:26 Dose: Not Given Tamsulosin HCl (Tamsulosin 0.4 Mg Capsule) 0.4 mg PO DAILY [facility] Last Admin: 11/16/21 10:52 Dose: 0.4 mg Topiramate (Topiramate 25 Mg Tablet) 50 mg PO BID [facility] Last Admin: 11/16/21 10:49 Dose: 50 mg Phenytoin Sodium Extended [Dilantin] 300 mg PO DAILY 05/18/13 [id number] ER [Glucotrol Xl] 2.5 mg PO DAILY 12/19/17 Metoprolol Succinate 12.5 mg PO BID 09/04/18
[2021-11-16] MEDS ORDERED: SODIUM CHLORIDE 0.9% 1,000 ML IV SCH (15:00)
[2021-11-16] MEDS: ATORVASTATIN 10 MG TABLET PO SCH (21:59)
[2021-11-16] MEDS: INSULIN GLARGINE 300 UNIT/3 ML PEN SUBQ SCH (21:59)
[2021-11-16] MEDS: ACETAMINOPHEN 325 MG TABLET PO PRN (22:11)
[2021-11-17] MEDS: SODIUM CHLORIDE FLUSH 0.9% 10 ML SYRINGE IVP SCH ×3 (00:22→16:40)
[2021-11-17 06:39] LABS: BASOPHILS # (AUTO) 0.1 10^3/uL (0.0-0.1); BASOPHILS % (AUTO) 0.8 %; EOSINOPHILS # (AUTO) 0.3 10^3/uL (0.0-0.7); EOSINOPHILS % (AUTO) 4.2 %; HCT - HEMATOCRIT 34.6 % (42.0-52.0); LYMPHOCYTES # (AUTO) 1.7 10^3/uL (1.5-3.5); LYMPHOCYTES % (AUTO) 25.7 %; MEAN CORPUSCULAR HEMOGLOBIN 29.5 pg (27.0-31.0); MEAN CORPUSCULAR HGB CONC 31.8 g/dL (32.0-36.0); MEAN CORPUSCULAR VOLUME 92.8 fL (80.0-94.0); MEAN PLATELET VOLUME 8.7 fL (7.4-11.4); MONOCYTES # (AUTO) 0.7 10^3/uL (0.0-1.0); MONOCYTES % (AUTO) 10.1 %; NEUTROPHILS # (AUTO) 3.8 10^3/uL (1.5-6.6); NEUTROPHILS % (AUTO) 58.7 %; PLT - PLATELET COUNT 585 10^3/uL (130-450); RED BLOOD COUNT 3.73 10^6/uL (4.70-6.10); RED CELL DISTRIBUTION WIDTH 13.3 % (12.0-15.0); WHITE BLOOD COUNT 6.4 x10^3/uL (4.8-10.8)
[2021-11-17 06:44] LABS: CALCIUM 8.6 mg/dL (8.5-10.3); CREATININE 0.9 mg/dL (0.6-1.2); POTASSIUM 4.2 mmol/L (3.5-5.0)
[2021-11-17] MEDS: INSULIN ASPART 300 UNIT/3 ML PEN SUBQ SCH ×4 (08:56→21:03)
[2021-11-17] MEDS: SENNA 8.6 MG TABLET PO SCH (08:57)
[2021-11-17] MEDS: PHENYTOIN ER 100 MG CAPSULE PO SCH ×2 (08:57→20:35)
[2021-11-17] MEDS: TAMSULOSIN 0.4 MG CAPSULE PO SCH (08:58)
[2021-11-17] MEDS: polyethylene glycoL 3350 17 GM PACKET PO SCH (08:58)
[2021-11-17] MEDS: levETIRAcetam 250 MG TABLET PO SCH ×2 (08:59→20:35)
[2021-11-17] MEDS: FINASTERIDE 5 MG TABLET PO SCH (09:00)
[2021-11-17] MEDS ORDERED: GLYCERIN ADULT SUPP PR ONE (09:00)
[2021-11-17] MEDS: METOPROLOL SUCCINATE 25 MG TABLET PO SCH ×2 (09:01→20:36)
[2021-11-17] MEDS: ASPIRIN EC 81 MG TABLET PO SCH (09:01)
[2021-11-17] MEDS: lamoTRIgine 25 MG TABLET PO SCH ×2 (09:01→20:36)
[2021-11-17] MEDS: TOPIRAMATE 25 MG TABLET PO SCH ×2 (09:02→20:35)
[2021-11-17] MEDS: CHOLECALCIFEROL 25 MCG TABLET PO SCH (09:02)
[2021-11-17] MEDS: DOCUSATE SODIUM 250 MG CAPSULE PO SCH (09:03)
[2021-11-17] MEDS: lamoTRIgine 100 MG TABLET PO SCH ×2 (09:03→20:35)
[2021-11-17] MEDS: CALCIUM CARBONATE CHEW 500 MG TABLET PO SCH ×2 (09:04→20:35)
[2021-11-17] MEDS: ENOXAPARIN 40 MG/0.4 ML SYRINGE SUBQ SCH (09:05)
--- NOTE | 2021-11-17 13:59 | PROVIDER PROGRESS NOTE ---
Assessment/Plan - Problem List (1) Closed right hip fracture Qualifiers: Encounter type: initial encounter Qualified Code(s): S72.001A - Fracture of unspecified part of neck of right femur, initial encounter for closed fracture Assessment/Plan: 11/17 pt is ready for d/c, pt is comfortable rest in the bed. consult with social security assessor for Disposition planning, continue physical therapist and occupational therapist, continue pain control. 11/16 pt has hx of brain injury, he did not followup fairly with PT/OT instruction to have the evaluation in the treatment. Discussed and updated patient condition to patient's son, he will come to hospital with Nasal Mask to see his father because of Covid 19, he will discuss Disposition planing With social security assessor. Stable but pt is not motivated to join PT/OT activity. pt has hx of brain injury. This is Postop day #8 of right hip repair. Patient working with PT/OT. Plan is for discharge to a long term facility, continue consult with social security assessor for placement planning. Continued pain management. (2) COVID-19 Assessment/Plan: Stable. Patient is asymptomatic without fever, cough, stable O2 sat without respiratory distress. pt was Newly diagnosed on 11/11/2021 after he was tested in preparation for discharge to long term facility. Currently no need for Decadron or remdesivir. Continue to monitor. Lovenox for DVT prophylaxis. update pt's medical conditions to pt's son and daughter. (3) Seizure disorder Assessment/Plan: Stable. no more seizure On Keppra 1000 mg p.o. twice daily and Lamictal 200 mg p.o. twice daily. Phenytoin 300 mg p.o. daily and 400 mg p.o. every afternoon. Topamax 50 mg p.o. twice daily. PRN Ativan for acute seizure (4) History of coronary artery disease Assessment/Plan: stable, On metoprolol succinate 12.5 mg p.o. twice daily. Aspirin 81 mg p.o. daily. Atorvastatin 20 mg p.o. every afternoon (5) Type 2 diabetes mellitus stable, continue slide scale, Lantus, glucose check, hypoglycemia protocol. 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 He is at his baseline. 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 (7)hyponatremia Na 130, slight elevated BUN and creatinine, likely hypovolumia and hyponatremia, start with gentle IVF of NS, continue lab monitor - Current Meds Current Meds: Current Medications Generic Name Dose Route Start Last Admin Trade Name Tri PRN Reason Stop Dose Admin Acetaminophen 650 mg 11/06/21 21:18 11/16/21 22:11 Acetaminophen 325 Mg Tablet PO 650 mg Q4HR PRN Administration Pain 1 to 4 Aspirin 81 mg 11/08/21 09:00 11/17/21 09:01 Aspirin Ec 81 Mg Tablet PO 81 mg DAILY [facility] Administration Atorvastatin Calcium 20 mg 11/06/21 23:00 11/16/21 21:59 Atorvastatin 10 Mg Tablet PO 20 mg QPM [facility] Administration Calcium Carbonate/Glycine 500 mg 11/11/21 10:00 11/17/21 09:04 Calcium Carbonate Chew 500 Mg Tablet PO 500 mg BID [facility] Administration Cholecalciferol 50 mcg 11/11/21 09:00 11/17/21 09:02 Cholecalciferol 25 Mcg Tablet PO 50 mcg DAILY [facility] Administration Docusate Sodium 250 - 500 mg 11/11/21 11:00 11/17/21 09:03 Docusate Sodium 250 Mg Capsule PO 250 mg DAILY [facility] Administration Enoxaparin Sodium 40 mg 11/08/21 13:00 11/17/21 09:05 Enoxaparin 40 Mg/0.4 Ml Syringe SUBQ 40 mg DAILY [facility] Administration Finasteride 5 mg 11/08/21 09:00 11/17/21 09:00 Finasteride 5 Mg Tablet PO 5 mg DAILY [facility] Administration Insulin Aspart 3 - 11 unit 11/09/21 12:00 11/17/21 13:02 Insulin Aspart 300 Unit/3 Ml Pen SUBQ Not Given 0800,1200,1700,2100 [facility] Protocol Insulin Glargine 10 unit 11/10/21 21:00 11/16/21 21:59 Insulin Glargine 300 Unit/3 Ml Pen SUBQ 10 unit QPM [facility] Administration Lamotrigine 25 mg 11/06/21 22:00 11/17/21 09:01 Lamotrigine 25 Mg Tablet PO 25 mg BID [facility] Administration Lamotrigine 200 mg 11/06/21 22:00 11/17/21 09:03 Lamotrigine 100 Mg Tablet PO 200 mg BID [facility] Administration Levetiracetam 1,000 mg 11/06/21 23:00 11/17/21 08:59 Levetiracetam 250 Mg Tablet PO 1,000 mg BID [facility] Administration Metoprolol Succinate 12.5 mg 11/06/21 22:00 11/17/21 09:01 Metoprolol Succinate 25 Mg Tablet PO 12.5 mg BID [facility] Administration Ondansetron HCl 4 mg 11/06/21 21:18 11/10/21 12:35 Ondansetron 4 Mg/2 Ml Vial IVP 4 mg Q6HR PRN Administration Nausea / Vomiting Oxycodone HCl 10 mg 11/06/21 21:18 11/14/21 14:45 Oxycodone 5 Mg Tablet PO 10 mg Q4HR PRN Administration Pain 8 to 10 Phenytoin Sodium 300 mg 11/07/21 09:00 11/17/21 08:57 Phenytoin Er 100 Mg Capsule PO 300 mg DAILY [facility] Administration Phenytoin Sodium 400 mg 11/06/21 23:00 11/16/21 21:59 Phenytoin Er 100 Mg Capsule PO 400 mg QPM [facility] Administration Polyethylene Glycol 17 gm 11/09/21 10:00 11/17/21 08:58 Polyethylene Glycol 3350 17 Gm Packet PO 17 gm DAILY [facility] Administration Senna 8.6 - 17.2 mg 11/11/21 11:00 11/17/21 08:57 Senna 8.6 Mg Tablet PO 8.6 mg DAILY [facility] Administration Sodium Chloride 10 ml 11/06/21 21:18 11/08/21 16:44 Sodium Chloride Flush 0.9% 10 Ml Syringe IVP 10 ml PRN PRN Administration NEEDED PER PROVIDER ORDERS Sodium Chloride 10 ml 11/07/21 01:00 11/17/21 09:14 Sodium Chloride Flush 0.9% 10 Ml Syringe IVP 10 ml 0100,0900,1700 [facility] Administration Tamsulosin HCl 0.4 mg 11/08/21 09:00 11/17/21 08:58 Tamsulosin 0.4 Mg Capsule PO 0.4 mg DAILY [facility] Administration Topiramate 50 mg 11/06/21 23:00 11/17/21 09:02 Topiramate 25 Mg Tablet PO 50 mg BID [facility] Administration - Lab Result Fish Bone Diagrams: 11/17/21 06:28 11/17/21 06:28 - Additional Planning My Orders: My Active Orders 11/18/21 05:00 BMP - BASIC METABOLIC PANEL [CHEM] DAILYLAB CBC - COMP BLD CT W/AUTO DIFF [HEME] DAILYLAB 11/19/21 05:00 BMP - BASIC METABOLIC PANEL [CHEM] DAILYLAB CBC - COMP BLD CT W/AUTO DIFF [HEME] DAILYLAB 11/20/21 05:00 BMP - BASIC METABOLIC PANEL [CHEM] DAILYLAB CBC - COMP BLD CT W/AUTO DIFF [HEME] DAILYLAB 11/21/21 05:00 BMP - BASIC METABOLIC PANEL [CHEM] DAILYLAB CBC - COMP BLD CT W/AUTO DIFF [HEME] DAILYLAB Subjective - Subjective Patient Reports: Resting Comfortably Objective Vital Signs: Vital Signs - 24 hr 11/16/21 11/16/21 11/17/21 17:00 21:00 00:34 Temperature 36.7 C 36.8 C 36.8 C Heart Rate [ 84 72 77 Brachial] Respiratory 20 16 16 Rate Blood Pressure 118/69 [Left Brachial artery] Blood Pressure 116/72 111/60 [Right Brachial artery] O2 Saturation 95 99 95 11/17/21 11/17/21 05:39 08:22 Temperature 36.6 C 36.6 C Heart Rate [ 70 71 Brachial] Respiratory 16 20 Rate Blood Pressure [Left Brachial artery] Blood Pressure 108/58 L 125/70 [Right Brachial artery] O2 Saturation 97 97 Oxygen O2 Source [With Activity] Room air O2 Source Room air I&O (Last 24 Hrs): Intake and Output Totals x24h 11/15/21 11/16/21 11/17/21 23:59 23:59 23:59 Intake Total 1939 2661.942 668.058 Balance 1939 2661.942 668.058 General: Alert, No acute distress HEENT: Atraumatic Neck: Supple Lymphatic: no adenopathy Neuro: Alert, Non Focal Cardiovascular: Regular rate, Normal S1, Normal S2 Respiratory: Chest non-tender, No respiratory distress Abdomen: Normal bowel sounds, Soft Extremities: Normal pulses - Results Results: Laboratory Results WBC 6.4 x10^3/uL (4.8-10.8) 11/17/21 06:28 RBC 3.73 10^6/uL (4.70-6.10) L 11/17/21 06:28 Hgb 11.0 g/dL (14.0-18.0) L 11/17/21 06:28 Hct 34.6 % (42.0-52.0) L 11/17/21 06:28 MCV 92.8 fL (80.0-94.0) 11/17/21 06:28 MCH 29.5 pg (27.0-31.0) 11/17/21 06:28 MCHC 31.8 g/dL (32.0-36.0) L 11/17/21 06:28 RDW 13.3 % (12.0-15.0) 11/17/21 06:28 Plt Count 585 10^3/uL (130-450) H 11/17/21 06:28 MPV 8.7 fL (7.4-11.4) 11/17/21 06:28 Neut # (Auto) 3.8 10^3/uL (1.5-6.6) 11/17/21 06:28 Lymph # (Auto) 1.7 10^3/uL (1.5-3.5) 11/17/21 06:28 Roberts # (Auto) 0.7 10^3/uL (0.0-1.0) 11/17/21 06:28 Eos # (Auto) 0.3 10^3/uL (0.0-0.7) 11/17/21 06:28 Baso # (Auto) 0.1 10^3/uL (0.0-0.1) 11/17/21 06:28 Absolute Nucleated RBC 0.00 x10^3/uL 11/17/21 06:28 Nucleated RBC % 0.0 /100WBC 11/17/21 06:28 PT 11.7 secs (9.9-12.6) 11/06/21 21:20 INR 1.1 (0.8-1.2) 11/06/21 21:20 APTT 25.3 secs (24.9-33.3) 11/06/21 21:20 Sodium 136 mmol/L (135-145) 11/17/21 06:28 Potassium 4.2 mmol/L (3.5-5.0) 11/17/21 06:28 Chloride 102 mmol/L (101-111) 11/17/21 06:28 Carbon Dioxide 25 mmol/L (21-32) 11/17/21 06:28 Anion Gap 9.0 (6-13) 11/17/21 06:28 BUN 22 mg/dL (6-20) H 11/17/21 06:28 Creatinine 0.9 mg/dL (0.6-1.2) 11/17/21 06:28 Estimated GFR (MDRD) 83 (>89) L 11/17/21 06:28 Glucose 115 mg/dL (70-100) H 11/17/21 06:28 POC Whole Bld Glucose 112 mg/dL (70 - 100) H 11/17/21 08:08 Estimat Average Glucose 126 mg/dL (70-100) H 11/08/21 06:45 Hemoglobin A1c % 6.0 % (4.27-6.07) 11/08/21 06:45 Calcium 8.6 mg/dL (8.5-10.3) 11/17/21 06:28 Total Bilirubin 0.5 mg/dL (0.2-1.0) 11/06/21 21:20 AST 35 IU/L (10-42) 11/06/21 21:20 ALT 39 IU/L (10-60) 11/06/21 21:20 Alkaline Phosphatase 91 IU/L (42-121) 11/06/21 21:20 Total Protein 8.7 g/dL (6.7-8.2) H 11/06/21 21:20 Albumin 4.4 g/dL (3.2-5.5) 11/06/21 21:20 Globulin 4.3 g/dL (2.1-4.2) H 11/06/21 21:20 Albumin/Globulin Ratio 1.0 (1.0-2.2) 11/06/21 21:20 Lipase 38 U/L (22-51) 11/06/21 21:20 25-OH Vitamin D Total 15 ng/mL (30-100) L 11/10/21 11:14 Urine Color DARK YELLOW 11/06/21 21:12 Urine Clarity CLEAR (CLEAR) 11/06/21 21:12 Urine pH 6.0 PH (5.0-7.5) 11/06/21 21:12 Ur Specific [place] 1.020 (1.002-1.030) 11/06/21 21:12 Urine Protein TRACE mg/dL (NEGATIVE) 11/06/21 21:12 Urine Glucose (UA) 100 mg/dL (NEGATIVE) H 11/06/21 21:12 Urine Ketones NEGATIVE mg/dL (NEGATIVE) 11/06/21 21:12 Urine Occult Blood NEGATIVE (NEGATIVE) 11/06/21 21:12 Urine Nitrite NEGATIVE (NEGATIVE) 11/06/21 21:12 Urine Bilirubin NEGATIVE (NEGATIVE) 11/06/21 21:12 Urine Urobilinogen 0.2 (NORMAL) E.U./dL (NORMAL) 11/06/21 21:12 Ur Leukocyte Esterase NEGATIVE (NEGATIVE) 11/06/21 21:12 Ur Microscopic Review NOT INDICATED 11/06/21 21:12 Urine Culture Comments NOT INDICATED 11/06/21 21:12 Nasal Adenovirus (PCR) NOT DETECTED 11/11/21 11:30 Nasal B. parapertussis DNA (PCR) NOT DETECTED 11/11/21 11:30 Nasal Coronavir 229E PCR NOT DETECTED 11/11/21 11:30 Nasal Coronavir HKU1 PCR NOT DETECTED 11/11/21 11:30 Nasal Coronavir NL63 PCR NOT DETECTED 11/11/21 11:30 Nasal Coronavir OC43 PCR NOT DETECTED 11/11/21 11:30 Nasal Enterovir/Rhinovir PCR NOT DETECTED 11/11/21 11:30 Nasal Influenza B PCR NOT DETECTED 11/11/21 11:30 Nasal Influenza A PCR NOT DETECTED 11/11/21 11:30 Nasal Parainfluen 1 PCR NOT DETECTED 11/11/21 11:30 Nasal Parainfluen 2 PCR NOT DETECTED 11/11/21 11:30 Nasal Parainfluen 3 PCR NOT DETECTED 11/11/21 11:30 Nasal Parainfluen 4 PCR NOT DETECTED 11/11/21 11:30 Nasal RSV (PCR) NOT DETECTED 11/11/21 11:30 Nasal B.pertussis DNA PCR NOT DETECTED 11/11/21 11:30 Nasal C.pneumoniae (PCR) NOT DETECTED 11/11/21 11:30 Akhil Human Metapneumo PCR NOT DETECTED 11/11/21 11:30 Nasal M.pneumoniae (PCR) NOT DETECTED 11/11/21 11:30 Nasal SARS-CoV-2 (PCR) DETECTED A 11/11/21 11:30 Phenytoin 25.4 ug/mL 11/08/21 08:39 Lamotrigine 2.5 mcg/mL (4.0-18.0) L 11/08/21 08:39 Levetiracetam 17.6 mcg/mL 11/08/21 08:39 - Procedures Procedures: Procedures EXCISION OF ASCENDING COLON, ENDO (03/29/17) EXCISION OF DESCENDING COLON, ENDO (03/29/17) EXCISION OF RECTUM, ENDO (03/29/17) INSERTION OF INFUSION DEV INTO SUP VENA CAVA, PERC APPROACH (11/05/17) ABX Reporting Has patient been on IV antibiotics over the past 48 hours?: No Current Medications - Current Medications Current Medications: Active Medications Acetaminophen (Acetaminophen 325 Mg Tablet) 650 mg PO Q4HR PRN PRN Reason: Pain 1 to 4 Last Admin: 11/16/21 22:11 Dose: 650 mg Aspirin (Aspirin Ec 81 Mg Tablet) 81 mg PO DAILY [facility] Last Admin: 11/17/21 09:01 Dose: 81 mg Atorvastatin Calcium (Atorvastatin 10 Mg Tablet) 20 mg PO QPM [facility] Last Admin: 11/16/21 21:59 Dose: 20 mg Calcium Carbonate/Glycine (Calcium Carbonate Chew 500 Mg Tablet) 500 mg PO BID [facility] Last Admin: 11/17/21 09:04 Dose: 500 mg Cholecalciferol (Cholecalciferol 25 Mcg Tablet) 50 mcg PO DAILY [facility] Last Admin: 11/17/21 09:02 Dose: 50 mcg Docusate Sodium (Docusate Sodium 250 Mg Capsule) 250 - 500 mg PO DAILY [facility] Last Admin: 11/17/21 09:03 Dose: 250 mg Enoxaparin Sodium (Enoxaparin 40 Mg/0.4 Ml Syringe) 40 mg SUBQ DAILY [facility] Last Admin: 11/17/21 09:05 Dose: 40 mg Finasteride (Finasteride 5 Mg Tablet) 5 mg PO DAILY [facility] Last Admin: 11/17/21 09:00 Dose: 5 mg Insulin Aspart (Insulin Aspart 300 Unit/3 Ml Pen) 3 - 11 unit SUBQ 0800,1200,1700,2100 [facility]; Protocol Last Admin: 11/17/21 13:02 Dose: Not Given Insulin Glargine (Insulin Glargine 300 Unit/3 Ml Pen) 10 unit SUBQ QPM [facility] Last Admin: 11/16/21 21:59 Dose: 10 unit Lamotrigine (Lamotrigine 25 Mg Tablet) 25 mg PO BID [facility] Last Admin: 11/17/21 09:01 Dose: 25 mg Lamotrigine (Lamotrigine 100 Mg Tablet) 200 mg PO BID [facility] Last Admin: 11/17/21 09:03 Dose: 200 mg Levetiracetam (Levetiracetam 250 Mg Tablet) 1,000 mg PO BID [facility] Last Admin: 11/17/21 08:59 Dose: 1,000 mg Lorazepam (Lorazepam 2 Mg/Ml Vial) 2 mg IVP Q2H PRN PRN Reason: Seizure Metoprolol Succinate (Metoprolol Succinate 25 Mg Tablet) 12.5 mg PO BID [facility] Last Admin: 11/17/21 09:01 Dose: 12.5 mg Ondansetron HCl (Ondansetron Odt 4 Mg Tablet) 4 mg TL Q6HR PRN PRN Reason: Nausea / Vomiting Ondansetron HCl (Ondansetron 4 Mg/2 Ml Vial) 4 mg IVP Q6HR PRN PRN Reason: Nausea / Vomiting Last Admin: 11/10/21 12:35 Dose: 4 mg Oxycodone HCl (Oxycodone 5 Mg Tablet) 10 mg PO Q4HR PRN PRN Reason: Pain 8 to 10 Last Admin: 11/14/21 14:45 Dose: 10 mg Phenytoin Sodium (Phenytoin Er 100 Mg Capsule) 300 mg PO DAILY [facility] Last Admin: 11/17/21 08:57 Dose: 300 mg Phenytoin Sodium (Phenytoin Er 100 Mg Capsule) 400 mg PO QPM [facility] Last Admin: 11/16/21 21:59 Dose: 400 mg Polyethylene Glycol (Polyethylene Glycol 3350 17 Gm Packet) 17 gm PO DAILY [facility] Last Admin: 11/17/21 08:58 Dose: 17 gm Senna (Senna 8.6 Mg Tablet) 8.6 - 17.2 mg PO DAILY [facility] Last Admin: 11/17/21 08:57 Dose: 8.6 mg Sodium Chloride (Sodium Chloride Flush 0.9% 10 Ml Syringe) 10 ml IVP PRN PRN PRN Reason: NEEDED PER PROVIDER ORDERS Last Admin: 11/08/21 16:44 Dose: 10 ml Sodium Chloride (Sodium Chloride Flush 0.9% 10 Ml Syringe) 10 ml IVP 0100,0900,1700 [facility] Last Admin: 11/17/21 09:14 Dose: 10 ml Tamsulosin HCl (Tamsulosin 0.4 Mg Capsule) 0.4 mg PO DAILY [facility] Last Admin: 11/17/21 08:58 Dose: 0.4 mg Topiramate (Topiramate 25 Mg Tablet) 50 mg PO BID [facility] Last Admin: 11/17/21 09:02 Dose: 50 mg Phenytoin Sodium Extended [Dilantin] 300 mg PO DAILY 05/18/13 [id number] ER [Glucotrol Xl] 2.5 mg PO DAILY 12/19/17 Metoprolol Succinate 12.5 mg PO BID 09/04/18
[2021-11-17] MEDS: ATORVASTATIN 10 MG TABLET PO SCH (20:36)
[2021-11-17] MEDS: INSULIN GLARGINE 300 UNIT/3 ML PEN SUBQ SCH (21:04)
[2021-11-18] MEDS: ACETAMINOPHEN 325 MG TABLET PO PRN (01:38)
[2021-11-18] MEDS: SODIUM CHLORIDE FLUSH 0.9% 10 ML SYRINGE IVP SCH ×3 (01:38→18:11)
[2021-11-18 06:29] LABS: BASOPHILS # (AUTO) 0.1 10^3/uL (0.0-0.1); BASOPHILS % (AUTO) 0.7 %; EOSINOPHILS # (AUTO) 0.3 10^3/uL (0.0-0.7); EOSINOPHILS % (AUTO) 3.8 %; HGB - HEMOGLOBIN 10.9 g/dL (14.0-18.0); LYMPHOCYTES # (AUTO) 1.9 10^3/uL (1.5-3.5); LYMPHOCYTES % (AUTO) 26.9 %; MEAN CORPUSCULAR HEMOGLOBIN 29.5 pg (27.0-31.0); MEAN CORPUSCULAR HGB CONC 32.1 g/dL (32.0-36.0); MEAN CORPUSCULAR VOLUME 91.9 fL (80.0-94.0); MEAN PLATELET VOLUME 9.1 fL (7.4-11.4); MONOCYTES # (AUTO) 0.7 10^3/uL (0.0-1.0); MONOCYTES % (AUTO) 9.5 %; NEUTROPHILS # (AUTO) 4.2 10^3/uL (1.5-6.6); NEUTROPHILS % (AUTO) 58.8 %; PLT - PLATELET COUNT 635 10^3/uL (130-450); RED CELL DISTRIBUTION WIDTH 13.4 % (12.0-15.0); WHITE BLOOD COUNT 7.1 x10^3/uL (4.8-10.8)
[2021-11-18 06:34] LABS: CALCIUM 8.8 mg/dL (8.5-10.3); POTASSIUM 4.2 mmol/L (3.5-5.0)
[2021-11-18] MEDS: INSULIN ASPART 300 UNIT/3 ML PEN SUBQ SCH ×4 (08:08→20:42)
[2021-11-18] MEDS ORDERED: MAGNESIUM CITRATE 296 ML BOTTLE PO ONE (09:00)
--- NOTE | 2021-11-18 11:42 | PROVIDER PROGRESS NOTE ---
Assessment/Plan - Problem List (1) Closed right hip fracture Qualifiers: Encounter type: initial encounter Qualified Code(s): S72.001A - Fracture of unspecified part of neck of right femur, initial encounter for closed fracture Assessment/Plan: 11/18 pt is doing well, Hemodynamically stable. he ate 100% his breakfast. Patient is stable for disposition. pt has hx of brain injury and poorly followup instruction to have PT/OT. Per school social worker report, Patient family choose long- term care for patient, school social worker help for Disposition planning. 11/17 pt is ready for d/c, pt is comfortable rest in the bed. consult with school social worker for Disposition planning, continue physical therapist and occupational therapist, continue pain control. 11/16 pt has hx of brain injury, he did not followup fairly with PT/OT instruction to have the evaluation in the treatment. Discussed and updated patient condition to patient's son, he will come to hospital with Nasal Mask to see his father because of Covid 19, he will discuss Disposition planing With school social worker. Stable but pt is not motivated to join PT/OT activity. pt has hx of brain injury. This is Postop day #8 of right hip repair. Patient working with PT/OT. Plan is for [facility] a [facility], continue consult with school social worker for placement planning. Continued pain management. (2) COVID-19 Assessment/Plan: Stable. Patient is asymptomatic without fever, cough, stable O2 sat without respiratory distress. pt was Newly diagnosed on 11/11/2021 after he was tested in preparation for discharge to penitentiary facility. Currently no need for Decadron or remdesivir. Continue to monitor. Lovenox for DVT prophylaxis. update pt's medical conditions to pt's son and daughter. (3) Seizure disorder Assessment/Plan: Stable. no more seizure On Keppra 1000 mg p.o. twice daily and Lamictal 200 mg p.o. twice daily. Phenytoin 300 mg p.o. daily and 400 mg p.o. every afternoon. Topamax 50 mg p.o. twice daily. PRN Ativan for acute seizure (4) History of coronary artery disease Assessment/Plan: stable, On metoprolol succinate 12.5 mg p.o. twice daily. Aspirin 81 mg p.o. daily. Atorvastatin 20 mg p.o. every afternoon (5) Type 2 diabetes mellitus stable, continue slide scale, Lantus, glucose check, hypoglycemia protocol. 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 He is at his baseline. 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 (7)hyponatremia Na 130, slight elevated BUN and creatinine, likely hypovolumia and hyponatremia, start with gentle IVF of NS, continue lab monitor - Current Meds Current Meds: Current Medications Generic Name Dose Route Start Last Admin Trade Name Frenicholas PRN Reason Stop Dose Admin Acetaminophen 650 mg 11/06/21 21:18 11/18/21 01:38 Acetaminophen 325 Mg Tablet PO 650 mg Q4HR PRN Administration Pain 1 to 4 Aspirin 81 mg 11/08/21 09:00 11/17/21 09:01 Aspirin Ec 81 Mg Tablet PO 81 mg DAILY [facility] Administration Atorvastatin Calcium 20 mg 11/06/21 23:00 11/17/21 20:36 Atorvastatin 10 Mg Tablet PO 20 mg QPM JAKE Administration Calcium Carbonate/Glycine 500 mg 11/11/21 10:00 11/17/21 20:35 Calcium Carbonate Chew 500 Mg Tablet PO 500 mg BID JAKE Administration Cholecalciferol 50 mcg 11/11/21 09:00 11/17/21 09:02 Cholecalciferol 25 Mcg Tablet PO 50 mcg DAILY JAKE Administration Docusate Sodium 250 - 500 mg 11/11/21 11:00 11/17/21 09:03 Docusate Sodium 250 Mg Capsule PO 250 mg DAILY JAKE Administration Enoxaparin Sodium 40 mg 11/08/21 13:00 11/17/21 09:05 Enoxaparin 40 Mg/0.4 Ml Syringe SUBQ 40 mg DAILY JAKE Administration Finasteride 5 mg 11/08/21 09:00 11/17/21 09:00 Finasteride 5 Mg Tablet PO 5 mg DAILY [facility] Administration Insulin Aspart 3 - 11 unit 11/09/21 12:00 11/18/21 08:08 Insulin Aspart 300 Unit/3 Ml Pen SUBQ Not Given 0800,1200,1700,2100 [facility] Protocol Insulin Glargine 10 unit 11/10/21 21:00 11/17/21 21:04 Insulin Glargine 300 Unit/3 Ml Pen SUBQ 10 unit QPM JAKE Administration Lamotrigine 25 mg 11/06/21 22:00 11/17/21 20:36 Lamotrigine 25 Mg Tablet PO 25 mg BID JAKE Administration Lamotrigine 200 mg 11/06/21 22:00 11/17/21 20:35 Lamotrigine 100 Mg Tablet PO 200 mg BID JAKE Administration Levetiracetam 1,000 mg 11/06/21 23:00 11/17/21 20:35 Levetiracetam 250 Mg Tablet PO 1,000 mg BID JAKE Administration Metoprolol Succinate 12.5 mg 11/06/21 22:00 11/17/21 20:36 Metoprolol Succinate 25 Mg Tablet PO 12.5 mg BID JAKE Administration Ondansetron HCl 4 mg 11/06/21 21:18 11/10/21 12:35 Ondansetron 4 Mg/2 Ml Vial IVP 4 mg Q6HR PRN Administration Nausea / Vomiting Oxycodone HCl 10 mg 11/06/21 21:18 11/14/21 14:45 Oxycodone 5 Mg Tablet PO 10 mg Q4HR PRN Administration Pain 8 to 10 Phenytoin Sodium 300 mg 11/07/21 09:00 11/17/21 08:57 Phenytoin Er 100 Mg Capsule PO 300 mg DAILY [facility] Administration Phenytoin Sodium 400 mg 11/06/21 23:00 11/17/21 20:35 Phenytoin Er 100 Mg Capsule PO 400 mg QPM [facility] Administration Polyethylene Glycol 17 gm 11/09/21 10:00 11/17/21 08:58 Polyethylene Glycol 3350 17 Gm Packet PO 17 gm DAILY [facility] Administration Senna 8.6 - 17.2 mg 11/11/21 11:00 11/17/21 08:57 Senna 8.6 Mg Tablet PO 8.6 mg DAILY [facility] Administration Sodium Chloride 10 ml 11/06/21 21:18 11/08/21 16:44 Sodium Chloride Flush 0.9% 10 Ml Syringe IVP 10 ml PRN PRN Administration NEEDED PER PROVIDER ORDERS Sodium Chloride 10 ml 11/07/21 01:00 11/18/21 01:38 Sodium Chloride Flush 0.9% 10 Ml Syringe IVP 10 ml 0100,0900,1700 [facility] Administration Tamsulosin HCl 0.4 mg 11/08/21 09:00 11/17/21 08:58 Tamsulosin 0.4 Mg Capsule PO 0.4 mg DAILY [facility] Administration Topiramate 50 mg 11/06/21 23:00 11/17/21 20:35 Topiramate 25 Mg Tablet PO 50 mg BID JAKE Administration - Lab Result Fish Bone Diagrams: 11/18/21 05:16 11/18/21 05:16 - Additional Planning My Orders: My Active Orders 11/19/21 05:00 BMP - BASIC METABOLIC PANEL [CHEM] DAILYLAB CBC - COMP BLD CT W/AUTO DIFF [HEME] DAILYLAB 11/20/21 05:00 BMP - BASIC METABOLIC PANEL [CHEM] DAILYLAB CBC - COMP BLD CT W/AUTO DIFF [HEME] DAILYLAB 11/21/21 05:00 BMP - BASIC METABOLIC PANEL [CHEM] DAILYLAB CBC - COMP BLD CT W/AUTO DIFF [HEME] DAILYLAB Subjective - Subjective Patient Reports: Resting Comfortably Objective Vital Signs: Vital Signs - 24 hr 11/17/21 11/17/21 11/17/21 15:11 16:20 20:33 Temperature 36.8 C 36.8 C Heart Rate [ 86 86 77 Brachial] Respiratory 20 16 Rate Blood Pressure 119/68 114/74 108/64 [Right Brachial artery] O2 Saturation 99 99 11/18/21 11/18/21 11/18/21 01:30 05:41 07:58 Temperature 36.7 C 36.9 C Heart Rate [ 72 73 74 Brachial] Respiratory 16 16 18 Rate Blood Pressure 106/59 L 116/63 126/63 [Right Brachial artery] O2 Saturation 98 99 98 Oxygen O2 Source [With Activity] Room air O2 Source Room air I&O (Last 24 Hrs): Intake and Output Totals x24h 11/16/21 11/17/21 11/18/21 23:59 23:59 23:59 Intake Total 2661.942 1518.058 580 Balance 2661.942 1518.058 580 General: Alert, No acute distress HEENT: Atraumatic Neck: Supple Lymphatic: no adenopathy Neuro: Alert, Non Focal Cardiovascular: Regular rate, Normal S1, Normal S2 Respiratory: Chest non-tender, No respiratory distress Abdomen: Normal bowel sounds, Soft Extremities: Normal pulses - Results Results: Laboratory Results WBC 7.1 x10^3/uL (4.8-10.8) 11/18/21 05:16 RBC 3.70 10^6/uL (4.70-6.10) L 11/18/21 05:16 Hgb 10.9 g/dL (14.0-18.0) L 11/18/21 05:16 Hct 34.0 % (42.0-52.0) L 11/18/21 05:16 MCV 91.9 fL (80.0-94.0) 11/18/21 05:16 MCH 29.5 pg (27.0-31.0) 11/18/21 05:16 MCHC 32.1 g/dL (32.0-36.0) 11/18/21 05:16 RDW 13.4 % (12.0-15.0) 11/18/21 05:16 Plt Count 635 10^3/uL (130-450) H 11/18/21 05:16 MPV 9.1 fL (7.4-11.4) 11/18/21 05:16 Neut # (Auto) 4.2 10^3/uL (1.5-6.6) 11/18/21 05:16 Lymph # (Auto) 1.9 10^3/uL (1.5-3.5) 11/18/21 05:16 Ponce # (Auto) 0.7 10^3/uL (0.0-1.0) 11/18/21 05:16 Eos # (Auto) 0.3 10^3/uL (0.0-0.7) 11/18/21 05:16 Baso # (Auto) 0.1 10^3/uL (0.0-0.1) 11/18/21 05:16 Absolute Nucleated RBC 0.00 x10^3/uL 11/18/21 05:16 Nucleated RBC % 0.0 /100WBC 11/18/21 05:16 PT 11.7 secs (9.9-12.6) 11/06/21 21:20 INR 1.1 (0.8-1.2) 11/06/21 21:20 APTT 25.3 secs (24.9-33.3) 11/06/21 21:20 Sodium 135 mmol/L (135-145) 11/18/21 05:16 Potassium 4.2 mmol/L (3.5-5.0) 11/18/21 05:16 Chloride 101 mmol/L (101-111) 11/18/21 05:16 Carbon Dioxide 25 mmol/L (21-32) 11/18/21 05:16 Anion Gap 9.0 (6-13) 11/18/21 05:16 BUN 21 mg/dL (6-20) H 11/18/21 05:16 Creatinine 1.0 mg/dL (0.6-1.2) 11/18/21 05:16 Estimated GFR (MDRD) 73 (>89) L 11/18/21 05:16 Glucose 117 mg/dL (70-100) H 11/18/21 05:16 POC Whole Bld Glucose 205 mg/dL (70 - 100) H 11/18/21 11:03 Estimat Average Glucose 126 mg/dL (70-100) H 11/08/21 06:45 Hemoglobin A1c % 6.0 % (4.27-6.07) 11/08/21 06:45 Calcium 8.8 mg/dL (8.5-10.3) 11/18/21 05:16 Total Bilirubin 0.5 mg/dL (0.2-1.0) 11/06/21 21:20 AST 35 IU/L (10-42) 11/06/21 21:20 ALT 39 IU/L (10-60) 11/06/21 21:20 Alkaline Phosphatase 91 IU/L (42-121) 11/06/21 21:20 Total Protein 8.7 g/dL (6.7-8.2) H 11/06/21 21:20 Albumin 4.4 g/dL (3.2-5.5) 11/06/21 21:20 Globulin 4.3 g/dL (2.1-4.2) H 11/06/21 21:20 Albumin/Globulin Ratio 1.0 (1.0-2.2) 11/06/21 21:20 Lipase 38 U/L (22-51) 11/06/21 21:20 25-OH Vitamin D Total 15 ng/mL (30-100) L 11/10/21 11:14 Urine Color DARK YELLOW 11/06/21 21:12 Urine Clarity CLEAR (CLEAR) 11/06/21 21:12 Urine pH 6.0 PH (5.0-7.5) 11/06/21 21:12 Ur Specific Zap 1.020 (1.002-1.030) 11/06/21 21:12 Urine Protein TRACE mg/dL (NEGATIVE) 11/06/21 21:12 Urine Glucose (UA) 100 mg/dL (NEGATIVE) H 11/06/21 21:12 Urine Ketones NEGATIVE mg/dL (NEGATIVE) 11/06/21 21:12 Urine Occult Blood NEGATIVE (NEGATIVE) 11/06/21 21:12 Urine Nitrite NEGATIVE (NEGATIVE) 11/06/21 21:12 Urine Bilirubin NEGATIVE (NEGATIVE) 11/06/21 21:12 Urine Urobilinogen 0.2 (NORMAL) E.U./dL (NORMAL) 11/06/21 21:12 Ur Leukocyte Esterase NEGATIVE (NEGATIVE) 11/06/21 21:12 Ur Microscopic Review NOT INDICATED 11/06/21 21:12 Urine Culture Comments NOT INDICATED 11/06/21 21:12 Nasal Adenovirus (PCR) NOT DETECTED 11/11/21 11:30 Nasal B. parapertussis DNA (PCR) NOT DETECTED 11/11/21 11:30 Nasal Coronavir 229E PCR NOT DETECTED 11/11/21 11:30 Nasal Coronavir HKU1 PCR NOT DETECTED 11/11/21 11:30 Nasal Coronavir NL63 PCR NOT DETECTED 11/11/21 11:30 Nasal Coronavir OC43 PCR NOT DETECTED 11/11/21 11:30 Nasal Enterovir/Rhinovir PCR NOT DETECTED 11/11/21 11:30 Nasal Influenza B PCR NOT DETECTED 11/11/21 11:30 Nasal Influenza A PCR NOT DETECTED 11/11/21 11:30 Nasal Parainfluen 1 PCR NOT DETECTED 11/11/21 11:30 Nasal Parainfluen 2 PCR NOT DETECTED 11/11/21 11:30 Nasal Parainfluen 3 PCR NOT DETECTED 11/11/21 11:30 Nasal Parainfluen 4 PCR NOT DETECTED 11/11/21 11:30 Nasal RSV (PCR) NOT DETECTED 11/11/21 11:30 Nasal B.pertussis DNA PCR NOT DETECTED 11/11/21 11:30 Nasal C.pneumoniae (PCR) NOT DETECTED 11/11/21 11:30 Akhil Human Metapneumo PCR NOT DETECTED 11/11/21 11:30 Nasal M.pneumoniae (PCR) NOT DETECTED 11/11/21 11:30 Nasal SARS-CoV-2 (PCR) DETECTED A 11/11/21 11:30 Phenytoin 25.4 ug/mL 11/08/21 08:39 Lamotrigine 2.5 mcg/mL (4.0-18.0) L 11/08/21 08:39 Levetiracetam 17.6 mcg/mL 11/08/21 08:39 - Procedures Procedures: Procedures EXCISION OF ASCENDING COLON, ENDO (03/29/17) EXCISION OF DESCENDING COLON, ENDO (03/29/17) EXCISION OF RECTUM, ENDO (03/29/17) INSERTION OF INFUSION DEV INTO SUP VENA CAVA, PERC APPROACH (11/05/17) ABX Reporting Has patient been on IV antibiotics over the past 48 hours?: No Current Medications - Current Medications Current Medications: Active Medications Acetaminophen (Acetaminophen 325 Mg Tablet) 650 mg PO Q4HR PRN PRN Reason: Pain 1 to 4 Last Admin: 11/18/21 01:38 Dose: 650 mg Aspirin (Aspirin Ec 81 Mg Tablet) 81 mg PO DAILY [facility] Last Admin: 11/17/21 09:01 Dose: 81 mg Atorvastatin Calcium (Atorvastatin 10 Mg Tablet) 20 mg PO QPM [facility] Last Admin: 11/17/21 20:36 Dose: 20 mg Calcium Carbonate/Glycine (Calcium Carbonate Chew 500 Mg Tablet) 500 mg PO BID [facility] Last Admin: 11/17/21 20:35 Dose: 500 mg Cholecalciferol (Cholecalciferol 25 Mcg Tablet) 50 mcg PO DAILY [facility] Last Admin: 11/17/21 09:02 Dose: 50 mcg Docusate Sodium (Docusate Sodium 250 Mg Capsule) 250 - 500 mg PO DAILY [facility] Last Admin: 11/17/21 09:03 Dose: 250 mg Enoxaparin Sodium (Enoxaparin 40 Mg/0.4 Ml Syringe) 40 mg SUBQ DAILY [facility] Last Admin: 11/17/21 09:05 Dose: 40 mg Finasteride (Finasteride 5 Mg Tablet) 5 mg PO DAILY [facility] Last Admin: 11/17/21 09:00 Dose: 5 mg Insulin Aspart (Insulin Aspart 300 Unit/3 Ml Pen) 3 - 11 unit SUBQ 0800,1200,1700,2100 [facility]; Protocol Last Admin: 11/18/21 08:08 Dose: Not Given Insulin Glargine (Insulin Glargine 300 Unit/3 Ml Pen) 10 unit SUBQ QPM [facility] Last Admin: 11/17/21 21:04 Dose: 10 unit Lamotrigine (Lamotrigine 25 Mg Tablet) 25 mg PO BID [facility] Last Admin: 11/17/21 20:36 Dose: 25 mg Lamotrigine (Lamotrigine 100 Mg Tablet) 200 mg PO BID [facility] Last Admin: 11/17/21 20:35 Dose: 200 mg Levetiracetam (Levetiracetam 250 Mg Tablet) 1,000 mg PO BID [facility] Last Admin: 11/17/21 20:35 Dose: 1,000 mg Lorazepam (Lorazepam 2 Mg/Ml Vial) 2 mg IVP Q2H PRN PRN Reason: Seizure Metoprolol Succinate (Metoprolol Succinate 25 Mg Tablet) 12.5 mg PO BID [facility] Last Admin: 11/17/21 20:36 Dose: 12.5 mg Ondansetron HCl (Ondansetron Odt 4 Mg Tablet) 4 mg TL Q6HR PRN PRN Reason: Nausea / Vomiting Ondansetron HCl (Ondansetron 4 Mg/2 Ml Vial) 4 mg IVP Q6HR PRN PRN Reason: Nausea / Vomiting Last Admin: 11/10/21 12:35 Dose: 4 mg Oxycodone HCl (Oxycodone 5 Mg Tablet) 10 mg PO Q4HR PRN PRN Reason: Pain 8 to 10 Last Admin: 11/14/21 14:45 Dose: 10 mg Phenytoin Sodium (Phenytoin Er 100 Mg Capsule) 300 mg PO DAILY [facility] Last Admin: 11/17/21 08:57 Dose: 300 mg Phenytoin Sodium (Phenytoin Er 100 Mg Capsule) 400 mg PO QPM [facility] Last Admin: 11/17/21 20:35 Dose: 400 mg Polyethylene Glycol (Polyethylene Glycol 3350 17 Gm Packet) 17 gm PO DAILY [facility] Last Admin: 11/17/21 08:58 Dose: 17 gm Senna (Senna 8.6 Mg Tablet) 8.6 - 17.2 mg PO DAILY [facility] Last Admin: 11/17/21 08:57 Dose: 8.6 mg Sodium Chloride (Sodium Chloride Flush 0.9% 10 Ml Syringe) 10 ml IVP PRN PRN PRN Reason: NEEDED PER PROVIDER ORDERS Last Admin: 11/08/21 16:44 Dose: 10 ml Sodium Chloride (Sodium Chloride Flush 0.9% 10 Ml Syringe) 10 ml IVP 0100,0900,1700 [facility] Last Admin: 11/18/21 01:38 Dose: 10 ml Tamsulosin HCl (Tamsulosin 0.4 Mg Capsule) 0.4 mg PO DAILY [facility] Last Admin: 11/17/21 08:58 Dose: 0.4 mg Topiramate (Topiramate 25 Mg Tablet) 50 mg PO BID [facility] Last Admin: 11/17/21 20:35 Dose: 50 mg Phenytoin Sodium Extended [Dilantin] 300 mg PO DAILY 05/18/13 [id number] ER [Glucotrol Xl] 2.5 mg PO DAILY 12/19/17 Metoprolol Succinate 12.5 mg PO BID 09/04/18
[2021-11-18] MEDS: ENOXAPARIN 40 MG/0.4 ML SYRINGE SUBQ SCH (11:59)
[2021-11-18] MEDS: lamoTRIgine 100 MG TABLET PO SCH ×2 (12:02→20:34)
[2021-11-18] MEDS: CHOLECALCIFEROL 25 MCG TABLET PO SCH (12:04)
[2021-11-18] MEDS: lamoTRIgine 25 MG TABLET PO SCH ×2 (12:05→20:36)
[2021-11-18] MEDS: levETIRAcetam 250 MG TABLET PO SCH ×2 (12:08→20:36)
[2021-11-18] MEDS: PHENYTOIN ER 100 MG CAPSULE PO SCH ×2 (12:10→20:36)
[2021-11-18] MEDS: TAMSULOSIN 0.4 MG CAPSULE PO SCH (12:13)
[2021-11-18] MEDS: SENNA 8.6 MG TABLET PO SCH (12:15)
[2021-11-18] MEDS: CALCIUM CARBONATE CHEW 500 MG TABLET PO SCH ×2 (12:20→20:29)
[2021-11-18] MEDS: TOPIRAMATE 25 MG TABLET PO SCH ×2 (12:22→20:36)
[2021-11-18] MEDS: FINASTERIDE 5 MG TABLET PO SCH (12:23)
[2021-11-18] MEDS: ASPIRIN EC 81 MG TABLET PO SCH (12:25)
[2021-11-18] MEDS: METOPROLOL SUCCINATE 25 MG TABLET PO SCH ×2 (12:25→20:30)
[2021-11-18] MEDS: DOCUSATE SODIUM 250 MG CAPSULE PO SCH (12:27)
[2021-11-18] MEDS: polyethylene glycoL 3350 17 GM PACKET PO SCH (12:40)
[2021-11-18] MEDS: ATORVASTATIN 10 MG TABLET PO SCH (20:36)
[2021-11-18] MEDS: INSULIN GLARGINE 300 UNIT/3 ML PEN SUBQ SCH (20:39)
[2021-11-19] MEDS: SODIUM CHLORIDE FLUSH 0.9% 10 ML SYRINGE IVP SCH ×3 (02:57→19:26)
[2021-11-19 07:54] LABS: BASOPHILS # (AUTO) 0.1 10^3/uL (0.0-0.1); BASOPHILS % (AUTO) 0.9 %; CALCIUM 8.8 mg/dL (8.5-10.3); CREATININE 0.9 mg/dL (0.6-1.2); EOSINOPHILS # (AUTO) 0.3 10^3/uL (0.0-0.7); EOSINOPHILS % (AUTO) 4.8 %; HCT - HEMATOCRIT 35.2 % (42.0-52.0); HGB - HEMOGLOBIN 11.4 g/dL (14.0-18.0); LYMPHOCYTES # (AUTO) 1.8 10^3/uL (1.5-3.5); LYMPHOCYTES % (AUTO) 26.1 %; MEAN CORPUSCULAR HEMOGLOBIN 29.8 pg (27.0-31.0); MEAN CORPUSCULAR HGB CONC 32.4 g/dL (32.0-36.0); MEAN CORPUSCULAR VOLUME 91.9 fL (80.0-94.0); MEAN PLATELET VOLUME 8.8 fL (7.4-11.4); MONOCYTES # (AUTO) 0.6 10^3/uL (0.0-1.0); MONOCYTES % (AUTO) 9.1 %; NEUTROPHILS % (AUTO) 58.8 %; PLT - PLATELET COUNT 635 10^3/uL (130-450); POTASSIUM 4.3 mmol/L (3.5-5.0); RED BLOOD COUNT 3.83 10^6/uL (4.70-6.10); RED CELL DISTRIBUTION WIDTH 13.4 % (12.0-15.0); WHITE BLOOD COUNT 6.8 x10^3/uL (4.8-10.8)
[2021-11-19] MEDS: polyethylene glycoL 3350 17 GM PACKET PO SCH (08:48)
[2021-11-19] MEDS: levETIRAcetam 250 MG TABLET PO SCH ×2 (08:48→21:00)
[2021-11-19] MEDS: DOCUSATE SODIUM 250 MG CAPSULE PO SCH (08:49)
[2021-11-19] MEDS: PHENYTOIN ER 100 MG CAPSULE PO SCH ×2 (08:49→21:00)
[2021-11-19] MEDS: CHOLECALCIFEROL 25 MCG TABLET PO SCH (08:51)
[2021-11-19] MEDS: ASPIRIN EC 81 MG TABLET PO SCH (08:51)
[2021-11-19] MEDS: METOPROLOL SUCCINATE 25 MG TABLET PO SCH ×2 (08:51→21:00)
[2021-11-19] MEDS: TAMSULOSIN 0.4 MG CAPSULE PO SCH (08:52)
[2021-11-19] MEDS: lamoTRIgine 25 MG TABLET PO SCH ×2 (08:52→21:00)
[2021-11-19] MEDS: lamoTRIgine 100 MG TABLET PO SCH ×2 (08:52→21:00)
[2021-11-19] MEDS: TOPIRAMATE 25 MG TABLET PO SCH ×2 (08:52→21:00)
[2021-11-19] MEDS: SENNA 8.6 MG TABLET PO SCH (08:52)
[2021-11-19] MEDS: FINASTERIDE 5 MG TABLET PO SCH (08:53)
[2021-11-19] MEDS: ENOXAPARIN 40 MG/0.4 ML SYRINGE SUBQ SCH (08:53)
[2021-11-19] MEDS: INSULIN ASPART 300 UNIT/3 ML PEN SUBQ SCH ×4 (08:53→21:00)
[2021-11-19] MEDS: CALCIUM CARBONATE CHEW 500 MG TABLET PO SCH ×2 (08:53→21:00)
[2021-11-19] MEDS ORDERED: BISACODYL 10 MG SUPP PR ONE (09:00)
--- NOTE | 2021-11-19 11:45 | PROVIDER PROGRESS NOTE ---
Assessment/Plan - Problem List (1) Closed right hip fracture Qualifiers: Encounter type: initial encounter Qualified Code(s): S72.001A - Fracture of unspecified part of neck of right femur, initial encounter for closed fracture Assessment/Plan: 11/19 pt is comfortable. pt is pending for placement, bushel worker was consulted for disposition planning 11/18 pt is doing well, Hemodynamically stable. he ate 100% his breakfast. Patient is stable for disposition. pt has hx of brain injury and poorly followup instruction to have PT/OT. Per director of social media marketing report, Patient family choose long- term care for patient, director of social media marketing help for Disposition planning. 11/17 pt is ready for d/c, pt is comfortable rest in the bed. consult with director of social media marketing for Disposition planning, continue physical therapist and occupational therapist, continue pain control. 11/16 pt has hx of brain injury, he did not followup fairly with PT/OT instruction to have the evaluation in the treatment. Discussed and updated patient condition to patient's son, he will come to hospital with Nasal Mask to see his father because of Covid 19, he will discuss Disposition planing With director of social media marketing. Stable but pt is not motivated to join PT/OT activity. pt has hx of brain in jury. This is Postop day #8 of right hip repair. Patient working with PT/OT. Plan is for discharge to a long-term facility, continue consult with director of social media marketing for placement planning. Continued pain management. (2) COVID-19 Assessment/Plan: Stable. Patient is asymptomatic without fever, cough, stable O2 sat without respiratory distress. pt was Newly diagnosed on 11/11/2021 after he was tested in preparation for discharge to long-term facility. Currently no need for Decadron or remdesivir. Continue to monitor. Lovenox for DVT prophylaxis. update pt's medical conditions to pt's son and daughter. (3) Seizure disorder Assessment/Plan: Stable. no more seizure On Keppra 1000 mg p.o. twice daily and Lamictal 200 mg p.o. twice daily. Phenytoin 300 mg p.o. daily and 400 mg p.o. every afternoon. Topamax 50 mg p.o. twice daily. PRN Ativan for acute seizure (4) History of coronary artery disease Assessment/Plan: stable, On metoprolol succinate 12.5 mg p.o. twice daily. Aspirin 81 mg p.o. daily. Atorvastatin 20 mg p.o. every afternoon (5) Type 2 diabetes mellitus stable, continue slide scale, Lantus, glucose check, hypoglycemia protocol. 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 He is at his baseline. 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 (7)hyponatremia Na 130, slight elevated BUN and creatinine, likely hypovolumia and hyponatremia, start with gentle IVF of NS, continue lab monitor - Current Meds Current Meds: Current Medications Generic Name Dose Route Start Last Admin Trade Name Freq PRN Reason Stop Dose Admin Acetaminophen 650 mg 11/06/21 21:18 11/18/21 01:38 Acetaminophen 325 Mg Tablet PO 650 mg Q4HR PRN Administration Pain 1 to 4 Aspirin 81 mg 11/08/21 09:00 11/19/21 08:51 Aspirin Ec 81 Mg Tablet PO 81 mg DAILY JAKE Administration Atorvastatin Calcium 20 mg 11/06/21 23:00 11/18/21 20:36 Atorvastatin 10 Mg Tablet PO 20 mg QPM JAKE Administration Calcium Carbonate/Glycine 500 mg 11/11/21 10:00 11/19/21 08:53 Calcium Carbonate Chew 500 Mg Tablet PO 500 mg BID JAKE Administration Cholecalciferol 50 mcg 11/11/21 09:00 11/19/21 08:51 Cholecalciferol 25 Mcg Tablet PO 50 mcg DAILY JAKE Administration Docusate Sodium 250 - 500 mg 11/11/21 11:00 11/19/21 08:49 Docusate Sodium 250 Mg Capsule PO 500 mg DAILY JAKE Administration Enoxaparin Sodium 40 mg 11/08/21 13:00 11/19/21 08:53 Enoxaparin 40 Mg/0.4 Ml Syringe SUBQ 40 mg DAILY JAKE Administration Finasteride 5 mg 11/08/21 09:00 11/19/21 08:53 Finasteride 5 Mg Tablet PO 5 mg DAILY JAKE Administration Insulin Aspart 3 - 11 unit 11/09/21 12:00 11/19/21 08:53 Insulin Aspart 300 Unit/3 Ml Pen SUBQ Not Given 0800,1200,1700,2100 [facility] Protocol Insulin Glargine 10 unit 11/10/21 21:00 11/18/21 20:39 Insulin Glargine 300 Unit/3 Ml Pen SUBQ 10 unit QPM JAKE Administration Lamotrigine 25 mg 11/06/21 22:00 11/19/21 08:52 Lamotrigine 25 Mg Tablet PO 25 mg BID JAKE Administration Lamotrigine 200 mg 11/06/21 22:00 11/19/21 08:52 Lamotrigine 100 Mg Tablet PO 200 mg BID JAKE Administration Levetiracetam 1,000 mg 11/06/21 23:00 11/19/21 08:48 Levetiracetam 250 Mg Tablet PO 1,000 mg BID JAKE Administration Metoprolol Succinate 12.5 mg 11/06/21 22:00 11/19/21 08:51 Metoprolol Succinate 25 Mg Tablet PO 12.5 mg BID JAKE Administration Ondansetron HCl 4 mg 11/06/21 21:18 11/10/21 12:35 Ondansetron 4 Mg/2 Ml Vial IVP 4 mg Q6HR PRN Administration Nausea / Vomiting Oxycodone HCl 10 mg 11/06/21 21:18 11/14/21 14:45 Oxycodone 5 Mg Tablet PO 10 mg Q4HR PRN Administration Pain 8 to 10 Phenytoin Sodium 300 mg 11/07/21 09:00 11/19/21 08:49 Phenytoin Er 100 Mg Capsule PO 300 mg DAILY JAKE Administration Phenytoin Sodium 400 mg 11/06/21 23:00 11/18/21 20:36 Phenytoin Er 100 Mg Capsule PO 400 mg QPM JAKE Administration Polyethylene Glycol 17 gm 11/09/21 10:00 11/19/21 08:48 Polyethylene Glycol 3350 17 Gm Packet PO 17 gm DAILY JAKE Administration Senna 8.6 - 17.2 mg 11/11/21 11:00 11/19/21 08:52 Senna 8.6 Mg Tablet PO 17.2 mg DAILY JAKE Administration Sodium Chloride 10 ml 11/06/21 21:18 11/08/21 16:44 Sodium Chloride Flush 0.9% 10 Ml Syringe IVP 10 ml PRN PRN Administration NEEDED PER PROVIDER ORDERS Sodium Chloride 10 ml 11/07/21 01:00 11/19/21 08:54 Sodium Chloride Flush 0.9% 10 Ml Syringe IVP Not Given 0100,0900,1700 JAKE Tamsulosin HCl 0.4 mg 11/08/21 09:00 11/19/21 08:52 Tamsulosin 0.4 Mg Capsule PO 0.4 mg DAILY JAKE Administration Topiramate 50 mg 11/06/21 23:00 11/19/21 08:52 Topiramate 25 Mg Tablet PO 50 mg BID JAKE Administration - Lab Result Fish Bone Diagrams: 11/19/21 07:00 11/19/21 07:00 - Additional Planning My Orders: My Active Orders 11/19/21 08:13 Miscellaenous Nursing Order [RC] PRN 11/20/21 05:00 BMP - BASIC METABOLIC PANEL [CHEM] DAILYLAB CBC - COMP BLD CT W/AUTO DIFF [HEME] DAILYLAB 11/21/21 05:00 BMP - BASIC METABOLIC PANEL [CHEM] DAILYLAB CBC - COMP BLD CT W/AUTO DIFF [HEME] DAILYLAB Subjective - Subjective Patient Reports: Resting Comfortably Objective Vital Signs: Vital Signs - 24 hr 11/18/21 11/18/21 11/19/21 13:14 16:54 00:37 Temperature 36.5 C 37.0 C 36.6 C Heart Rate [ 80 82 74 Brachial] Respiratory 16 16 18 Rate Blood Pressure 122/66 95/57 L 111/58 L [Right Brachial artery] O2 Saturation 96 94 99 11/19/21 11/19/21 07:45 08:45 Temperature 36.5 C Heart Rate [ 68 77 Brachial] Respiratory 17 Rate Blood Pressure 110/56 L 127/61 [Right Brachial artery] O2 Saturation 96 Oxygen O2 Source [With Activity] Room air O2 Source Room air I&O (Last 24 Hrs): Intake and Output Totals x24h 11/17/21 11/18/21 11/19/21 23:59 23:59 23:59 Intake Total 1513.152 0232 240 Balance 7753.863 6965 240 General: Alert, No acute distress HEENT: Atraumatic Neck: Supple Lymphatic: no adenopathy Neuro: Alert, Non Focal Cardiovascular: Regular rate, Normal S1, Normal S2 Respiratory: Chest non-tender, No respiratory distress Abdomen: Normal bowel sounds, Soft Extremities: Normal pulses - Results Results: Laboratory Results WBC 6.8 x10^3/uL (4.8-10.8) 11/19/21 07:00 RBC 3.83 10^6/uL (4.70-6.10) L 11/19/21 07:00 Hgb 11.4 g/dL (14.0-18.0) L 11/19/21 07:00 Hct 35.2 % (42.0-52.0) L 11/19/21 07:00 MCV 91.9 fL (80.0-94.0) 11/19/21 07:00 MCH 29.8 pg (27.0-31.0) 11/19/21 07:00 MCHC 32.4 g/dL (32.0-36.0) 11/19/21 07:00 RDW 13.4 % (12.0-15.0) 11/19/21 07:00 Plt Count 635 10^3/uL (130-450) H 11/19/21 07:00 MPV 8.8 fL (7.4-11.4) 11/19/21 07:00 Neut # (Auto) 4.0 10^3/uL (1.5-6.6) 11/19/21 07:00 Lymph # (Auto) 1.8 10^3/uL (1.5-3.5) 11/19/21 07:00 Haralson # (Auto) 0.6 10^3/uL (0.0-1.0) 11/19/21 07:00 Eos # (Auto) 0.3 10^3/uL (0.0-0.7) 11/19/21 07:00 Baso # (Auto) 0.1 10^3/uL (0.0-0.1) 11/19/21 07:00 Absolute Nucleated RBC 0.00 x10^3/uL 11/19/21 07:00 Nucleated RBC % 0.0 /100WBC 11/19/21 07:00 PT 11.7 secs (9.9-12.6) 11/06/21 21:20 INR 1.1 (0.8-1.2) 11/06/21 21:20 APTT 25.3 secs (24.9-33.3) 11/06/21 21:20 Sodium 136 mmol/L (135-145) 11/19/21 07:00 Potassium 4.3 mmol/L (3.5-5.0) 11/19/21 07:00 Chloride 101 mmol/L (101-111) 11/19/21 07:00 Carbon Dioxide 26 mmol/L (21-32) 11/19/21 07:00 Anion Gap 9.0 (6-13) 11/19/21 07:00 BUN 20 mg/dL (6-20) 11/19/21 07:00 Creatinine 0.9 mg/dL (0.6-1.2) 11/19/21 07:00 Estimated GFR (MDRD) 83 (>89) L 11/19/21 07:00 Glucose 117 mg/dL (70-100) H 11/19/21 07:00 POC Whole Bld Glucose 240 mg/dL (70 - 100) H 11/19/21 11:05 Estimat Average Glucose 126 mg/dL (70-100) H 11/08/21 06:45 Hemoglobin A1c % 6.0 % (4.27-6.07) 11/08/21 06:45 Calcium 8.8 mg/dL (8.5-10.3) 11/19/21 07:00 Total Bilirubin 0.5 mg/dL (0.2-1.0) 11/06/21 21:20 AST 35 IU/L (10-42) 11/06/21 21:20 ALT 39 IU/L (10-60) 11/06/21 21:20 Alkaline Phosphatase 91 IU/L (42-121) 11/06/21 21:20 Total Protein 8.7 g/dL (6.7-8.2) H 11/06/21 21:20 Albumin 4.4 g/dL (3.2-5.5) 11/06/21 21:20 Globulin 4.3 g/dL (2.1-4.2) H 11/06/21 21:20 Albumin/Globulin Ratio 1.0 (1.0-2.2) 11/06/21 21:20 Lipase 38 U/L (22-51) 11/06/21 21:20 25-OH Vitamin D Total 15 ng/mL (30-100) L 11/10/21 11:14 Urine Color DARK YELLOW 11/06/21 21:12 Urine Clarity CLEAR (CLEAR) 11/06/21 21:12 Urine pH 6.0 PH (5.0-7.5) 11/06/21 21:12 Ur Specific Isabel 1.020 (1.002-1.030) 11/06/21 21:12 Urine Protein TRACE mg/dL (NEGATIVE) 11/06/21 21:12 Urine Glucose (UA) 100 mg/dL (NEGATIVE) H 11/06/21 21:12 Urine Ketones NEGATIVE mg/dL (NEGATIVE) 11/06/21 21:12 Urine Occult Blood NEGATIVE (NEGATIVE) 11/06/21 21:12 Urine Nitrite NEGATIVE (NEGATIVE) 11/06/21 21:12 Urine Bilirubin NEGATIVE (NEGATIVE) 11/06/21 21:12 Urine Urobilinogen 0.2 (NORMAL) E.U./dL (NORMAL) 11/06/21 21:12 Ur Leukocyte Esterase NEGATIVE (NEGATIVE) 11/06/21 21:12 Ur Microscopic Review NOT INDICATED 11/06/21 21:12 Urine Culture Comments NOT INDICATED 11/06/21 21:12 Nasal Adenovirus (PCR) NOT DETECTED 11/11/21 11:30 Nasal B. parapertussis DNA (PCR) NOT DETECTED 11/11/21 11:30 Nasal Coronavir 229E PCR NOT DETECTED 11/11/21 11:30 Nasal Coronavir HKU1 PCR NOT DETECTED 11/11/21 11:30 Nasal Coronavir NL63 PCR NOT DETECTED 11/11/21 11:30 Nasal Coronavir OC43 PCR NOT DETECTED 11/11/21 11:30 Nasal Enterovir/Rhinovir PCR NOT DETECTED 11/11/21 11:30 Nasal Influenza B PCR NOT DETECTED 11/11/21 11:30 Nasal Influenza A PCR NOT DETECTED 11/11/21 11:30 Nasal Parainfluen 1 PCR NOT DETECTED 11/11/21 11:30 Nasal Parainfluen 2 PCR NOT DETECTED 11/11/21 11:30 Nasal Parainfluen 3 PCR NOT DETECTED 11/11/21 11:30 Nasal Parainfluen 4 PCR NOT DETECTED 11/11/21 11:30 Nasal RSV (PCR) NOT DETECTED 11/11/21 11:30 Nasal B.pertussis DNA PCR NOT DETECTED 11/11/21 11:30 Nasal C.pneumoniae (PCR) NOT DETECTED 11/11/21 11:30 Akhil Human Metapneumo PCR NOT DETECTED 11/11/21 11:30 Nasal M.pneumoniae (PCR) NOT DETECTED 11/11/21 11:30 Nasal SARS-CoV-2 (PCR) DETECTED A 11/11/21 11:30 Phenytoin 25.4 ug/mL 11/08/21 08:39 Lamotrigine 2.5 mcg/mL (4.0-18.0) L 11/08/21 08:39 Levetiracetam 17.6 mcg/mL 11/08/21 08:39 - Procedures Procedures: Procedures EXCISION OF ASCENDING COLON, ENDO (03/29/17) EXCISION OF DESCENDING COLON, ENDO (03/29/17) EXCISION OF RECTUM, ENDO (03/29/17) INSERTION OF INFUSION DEV INTO SUP VENA CAVA, PERC APPROACH (11/05/17) ABX Reporting Has patient been on IV antibiotics over the past 48 hours?: No Current Medications - Current Medications Current Medications: Active Medications Acetaminophen (Acetaminophen 325 Mg Tablet) 650 mg PO Q4HR PRN PRN Reason: Pain 1 to 4 Last Admin: 11/18/21 01:38 Dose: 650 mg Aspirin (Aspirin Ec 81 Mg Tablet) 81 mg PO DAILY [facility] Last Admin: 11/19/21 08:51 Dose: 81 mg Atorvastatin Calcium (Atorvastatin 10 Mg Tablet) 20 mg PO QPM [facility] Last Admin: 11/18/21 20:36 Dose: 20 mg Calcium Carbonate/Glycine (Calcium Carbonate Chew 500 Mg Tablet) 500 mg PO BID [facility] Last Admin: 11/19/21 08:53 Dose: 500 mg Cholecalciferol (Cholecalciferol 25 Mcg Tablet) 50 mcg PO DAILY [facility] Last Admin: 11/19/21 08:51 Dose: 50 mcg Docusate Sodium (Docusate Sodium 250 Mg Capsule) 250 - 500 mg PO DAILY [facility] Last Admin: 11/19/21 08:49 Dose: 500 mg Enoxaparin Sodium (Enoxaparin 40 Mg/0.4 Ml Syringe) 40 mg SUBQ DAILY [facility] Last Admin: 11/19/21 08:53 Dose: 40 mg Finasteride (Finasteride 5 Mg Tablet) 5 mg PO DAILY [facility] Last Admin: 11/19/21 08:53 Dose: 5 mg Insulin Aspart (Insulin Aspart 300 Unit/3 Ml Pen) 3 - 11 unit SUBQ 0800,1200,1700,2100 [facility]; Protocol Last Admin: 11/19/21 08:53 Dose: Not Given Insulin Glargine (Insulin Glargine 300 Unit/3 Ml Pen) 10 unit SUBQ QPM [facility] Last Admin: 11/18/21 20:39 Dose: 10 unit Lamotrigine (Lamotrigine 25 Mg Tablet) 25 mg PO BID [facility] Last Admin: 11/19/21 08:52 Dose: 25 mg Lamotrigine (Lamotrigine 100 Mg Tablet) 200 mg PO BID [facility] Last Admin: 11/19/21 08:52 Dose: 200 mg Levetiracetam (Levetiracetam 250 Mg Tablet) 1,000 mg PO BID [facility] Last Admin: 11/19/21 08:48 Dose: 1,000 mg Lorazepam (Lorazepam 2 Mg/Ml Vial) 2 mg IVP Q2H PRN PRN Reason: Seizure Metoprolol Succinate (Metoprolol Succinate 25 Mg Tablet) 12.5 mg PO BID [facility] Last Admin: 11/19/21 08:51 Dose: 12.5 mg Ondansetron HCl (Ondansetron Odt 4 Mg Tablet) 4 mg TL Q6HR PRN PRN Reason: Nausea / Vomiting Ondansetron HCl (Ondansetron 4 Mg/2 Ml Vial) 4 mg IVP Q6HR PRN PRN Reason: Nausea / Vomiting Last Admin: 11/10/21 12:35 Dose: 4 mg Oxycodone HCl (Oxycodone 5 Mg Tablet) 10 mg PO Q4HR PRN PRN Reason: Pain 8 to 10 Last Admin: 11/14/21 14:45 Dose: 10 mg Phenytoin Sodium (Phenytoin Er 100 Mg Capsule) 300 mg PO DAILY [facility] Last Admin: 11/19/21 08:49 Dose: 300 mg Phenytoin Sodium (Phenytoin Er 100 Mg Capsule) 400 mg PO QPM [facility] Last Admin: 11/18/21 20:36 Dose: 400 mg Polyethylene Glycol (Polyethylene Glycol 3350 17 Gm Packet) 17 gm PO DAILY [facility] Last Admin: 11/19/21 08:48 Dose: 17 gm Senna (Senna 8.6 Mg Tablet) 8.6 - 17.2 mg PO DAILY [facility] Last Admin: 11/19/21 08:52 Dose: 17.2 mg Sodium Chloride (Sodium Chloride Flush 0.9% 10 Ml Syringe) 10 ml IVP PRN PRN PRN Reason: NEEDED PER PROVIDER ORDERS Last Admin: 11/08/21 16:44 Dose: 10 ml Sodium Chloride (Sodium Chloride Flush 0.9% 10 Ml Syringe) 10 ml IVP 0100,0900,1700 [facility] Last Admin: 11/19/21 08:54 Dose: Not Given Tamsulosin HCl (Tamsulosin 0.4 Mg Capsule) 0.4 mg PO DAILY [facility] Last Admin: 11/19/21 08:52 Dose: 0.4 mg Topiramate (Topiramate 25 Mg Tablet) 50 mg PO BID [facility] Last Admin: 11/19/21 08:52 Dose: 50 mg Phenytoin Sodium Extended [Dilantin] 300 mg PO DAILY 05/18/13 [id number] ER [Glucotrol Xl] 2.5 mg PO DAILY 12/19/17 Metoprolol Succinate 12.5 mg PO BID 09/04/18
[2021-11-19] MEDS: INSULIN GLARGINE 300 UNIT/3 ML PEN SUBQ SCH (21:00)
[2021-11-19] MEDS: ATORVASTATIN 10 MG TABLET PO SCH (21:00)
[2021-11-20] MEDS: SODIUM CHLORIDE FLUSH 0.9% 10 ML SYRINGE IVP SCH ×3 (04:56→17:22)
[2021-11-20 06:52] LABS: BASOPHILS # (AUTO) 0.1 10^3/uL (0.0-0.1); BASOPHILS % (AUTO) 0.8 %; EOSINOPHILS # (AUTO) 0.4 10^3/uL (0.0-0.7); EOSINOPHILS % (AUTO) 5.8 %; HCT - HEMATOCRIT 34.8 % (42.0-52.0); HGB - HEMOGLOBIN 11.2 g/dL (14.0-18.0); LYMPHOCYTES % (AUTO) 28.1 %; MEAN CORPUSCULAR HEMOGLOBIN 29.7 pg (27.0-31.0); MEAN CORPUSCULAR HGB CONC 32.2 g/dL (32.0-36.0); MEAN CORPUSCULAR VOLUME 92.3 fL (80.0-94.0); MONOCYTES # (AUTO) 0.7 10^3/uL (0.0-1.0); MONOCYTES % (AUTO) 9.1 %; NEUTROPHILS % (AUTO) 55.5 %; PLT - PLATELET COUNT 642 10^3/uL (130-450); RED BLOOD COUNT 3.77 10^6/uL (4.70-6.10); RED CELL DISTRIBUTION WIDTH 13.6 % (12.0-15.0); WHITE BLOOD COUNT 7.1 x10^3/uL (4.8-10.8)
[2021-11-20 07:03] LABS: CALCIUM 8.7 mg/dL (8.5-10.3); CREATININE 0.9 mg/dL (0.6-1.2); POTASSIUM 4.2 mmol/L (3.5-5.0)
[2021-11-20] MEDS: INSULIN ASPART 300 UNIT/3 ML PEN SUBQ SCH ×4 (09:00→22:02)
[2021-11-20] MEDS: ENOXAPARIN 40 MG/0.4 ML SYRINGE SUBQ SCH (09:44)
[2021-11-20] MEDS: PHENYTOIN ER 100 MG CAPSULE PO SCH ×2 (09:45→22:01)
[2021-11-20] MEDS: CALCIUM CARBONATE CHEW 500 MG TABLET PO SCH ×2 (09:45→21:59)
[2021-11-20] MEDS: TAMSULOSIN 0.4 MG CAPSULE PO SCH (09:45)
[2021-11-20] MEDS: ASPIRIN EC 81 MG TABLET PO SCH (09:45)
[2021-11-20] MEDS: lamoTRIgine 25 MG TABLET PO SCH ×2 (09:45→22:00)
[2021-11-20] MEDS: TOPIRAMATE 25 MG TABLET PO SCH ×2 (09:45→22:00)
[2021-11-20] MEDS: METOPROLOL SUCCINATE 25 MG TABLET PO SCH ×2 (09:45→21:59)
[2021-11-20] MEDS: levETIRAcetam 250 MG TABLET PO SCH ×2 (09:45→22:00)
[2021-11-20] MEDS: FINASTERIDE 5 MG TABLET PO SCH (09:46)
[2021-11-20] MEDS: SENNA 8.6 MG TABLET PO SCH (09:46)
[2021-11-20] MEDS: ACETAMINOPHEN 325 MG TABLET PO PRN (09:46)
[2021-11-20] MEDS: DOCUSATE SODIUM 250 MG CAPSULE PO SCH (09:46)
[2021-11-20] MEDS: CHOLECALCIFEROL 25 MCG TABLET PO SCH (09:46)
[2021-11-20] MEDS: lamoTRIgine 100 MG TABLET PO SCH ×2 (09:46→22:00)
[2021-11-20] MEDS: polyethylene glycoL 3350 17 GM PACKET PO SCH (09:47)
--- NOTE | 2021-11-20 14:00 | PROVIDER PROGRESS NOTE ---
Assessment/Plan - Problem List (1) Closed right hip fracture Qualifiers: Encounter type: initial encounter Qualified Code(s): S72.001A - Fracture of unspecified part of neck of right femur, initial encounter for closed fracture Assessment/Plan: 11/20 pt is setting at chair and comfortable. ground worker was consulted for disposition planning. pt is pending for replacement. 11/19 pt is comfortable. pt is pending for placement, ground worker was consulted for disposition planning 11/18 pt is doing well, Hemodynamically stable. he ate 100% his breakfast. Patient is stable for disposition. pt has hx of brain injury and poorly followup instruction to have PT/OT. Per social services director report, Patient family choose long- term care for patient, social services director help for Disposition planning. 11/17 pt is ready for d/c, pt is comfortable rest in the bed. consult with social services director for Disposition planning, continue physical therapist and occupational therapist, continue pain control. 11/16 pt has hx of brain injury, he did not followup fairly with PT/OT instruction to have the evaluation in the treatment. Discussed and updated patient condition to patient's son, he will come to hospital with Nasal Mask to see his father because of Covid 19, he will discuss Disposition planing With social services director. Stable but pt is not motivated to join PT/OT activity. pt has hx of brain injury. This is Postop day #8 of right hip repair. Patient working with PT/OT. Plan is for discharge to a custodial facility, continue consult with social services director for placement planning. Continued pain management. (2) COVID-19 Assessment/Plan: Stable. Patient is asymptomatic without fever, cough, stable O2 sat without r espiratory distress. pt was Newly diagnosed on 11/11/2021 after he was tested in preparation for discharge to custodial facility. Currently no need for Decadron or remdesivir. Continue to monitor. Lovenox for DVT prophylaxis. update pt's medical conditions to pt's son and daughter. (3) Seizure disorder Assessment/Plan: Stable. no more seizure On Keppra 1000 mg p.o. twice daily and Lamictal 200 mg p.o. twice daily. Phenytoin 300 mg p.o. daily and 400 mg p.o. every afternoon. Topamax 50 mg p.o. twice daily. PRN Ativan for acute seizure (4) History of coronary artery disease Assessment/Plan: stable, On metoprolol succinate 12.5 mg p.o. twice daily. Aspirin 81 mg p.o. daily. Atorvastatin 20 mg p.o. every afternoon (5) Type 2 diabetes mellitus stable, continue slide scale, Lantus, glucose check, hypoglycemia protocol. 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 He is at his baseline. 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 (7)hyponatremia Na 130, slight elevated BUN and creatinine, likely hypovolumia and hyponatremia, start with gentle IVF of NS, continue lab monitor - Current Meds Current Meds: Current Medications Generic Name Dose Route Start Last Admin Trade Name Freq PRN Reason Stop Dose Admin Acetaminophen 650 mg 11/06/21 21:18 11/20/21 09:46 Acetaminophen 325 Mg Tablet PO 650 mg Q4HR PRN Administration Pain 1 to 4 Aspirin 81 mg 11/08/21 09:00 11/20/21 09:45 Aspirin Ec 81 Mg Tablet PO 81 mg DAILY JAKE Administration Atorvastatin Calcium 20 mg 11/06/21 23:00 11/19/21 21:00 Atorvastatin 10 Mg Tablet PO 20 mg QPM JAKE Administration Calcium Carbonate/Glycine 500 mg 11/11/21 10:00 11/20/21 09:45 Calcium Carbonate Chew 500 Mg Tablet PO 500 mg BID JAKE Administration Cholecalciferol 50 mcg 11/11/21 09:00 11/20/21 09:46 Cholecalciferol 25 Mcg Tablet PO 50 mcg DAILY JAKE Administration Docusate Sodium 250 - 500 mg 11/11/21 11:00 11/20/21 09:46 Docusate Sodium 250 Mg Capsule PO Not Given DAILY [facility] Enoxaparin Sodium 40 mg 11/08/21 13:00 11/20/21 09:44 Enoxaparin 40 Mg/0.4 Ml Syringe SUBQ 40 mg DAILY JAKE Administration Finasteride 5 mg 11/08/21 09:00 11/20/21 09:46 Finasteride 5 Mg Tablet PO 5 mg DAILY JAKE Administration Insulin Aspart 3 - 11 unit 11/09/21 12:00 11/20/21 12:14 Insulin Aspart 300 Unit/3 Ml Pen SUBQ 5 unit 0800,1200,1700,2100 JAKE Administration Protocol Insulin Glargine 10 unit 11/10/21 21:00 11/19/21 21:00 Insulin Glargine 300 Unit/3 Ml Pen SUBQ 10 unit QPM JAKE Administration Lamotrigine 25 mg 11/06/21 22:00 11/20/21 09:45 Lamotrigine 25 Mg Tablet PO 25 mg BID JAKE Administration Lamotrigine 200 mg 11/06/21 22:00 11/20/21 09:46 Lamotrigine 100 Mg Tablet PO 200 mg BID JAKE Administration Levetiracetam 1,000 mg 11/06/21 23:00 11/20/21 09:45 Levetiracetam 250 Mg Tablet PO 1,000 mg BID JAKE Administration Metoprolol Succinate 12.5 mg 11/06/21 22:00 11/20/21 09:45 Metoprolol Succinate 25 Mg Tablet PO 12.5 mg BID JAKE Administration Ondansetron HCl 4 mg 11/06/21 21:18 11/10/21 12:35 Ondansetron 4 Mg/2 Ml Vial IVP 4 mg Q6HR PRN Administration Nausea / Vomiting Oxycodone HCl 10 mg 11/06/21 21:18 11/14/21 14:45 Oxycodone 5 Mg Tablet PO 10 mg Q4HR PRN Administration Pain 8 to 10 Phenytoin Sodium 300 mg 11/07/21 09:00 11/20/21 09:45 Phenytoin Er 100 Mg Capsule PO 300 mg DAILY JAKE Administration Phenytoin Sodium 400 mg 11/06/21 23:00 11/19/21 21:00 Phenytoin Er 100 Mg Capsule PO 400 mg QPM JAKE Administration Polyethylene Glycol 17 gm 11/09/21 10:00 11/20/21 09:47 Polyethylene Glycol 3350 17 Gm Packet PO 17 gm DAILY JAKE Administration Senna 8.6 - 17.2 mg 11/11/21 11:00 11/20/21 09:46 Senna 8.6 Mg Tablet PO Not Given DAILY [facility] Sodium Chloride 10 ml 11/06/21 21:18 11/08/21 16:44 Sodium Chloride Flush 0.9% 10 Ml Syringe IVP 10 ml PRN PRN Administration NEEDED PER PROVIDER ORDERS Sodium Chloride 10 ml 11/07/21 01:00 11/20/21 09:46 Sodium Chloride Flush 0.9% 10 Ml Syringe IVP Not Given 0100,0900,1700 [facility] Tamsulosin HCl 0.4 mg 11/08/21 09:00 11/20/21 09:45 Tamsulosin 0.4 Mg Capsule PO 0.4 mg DAILY JAKE Administration Topiramate 50 mg 11/06/21 23:00 11/20/21 09:45 Topiramate 25 Mg Tablet PO 50 mg BID JAKE Administration - Lab Result Fish Bone Diagrams: 11/20/21 05:37 11/20/21 05:37 - Additional Planning My Orders: My Active Orders 11/21/21 05:00 BMP - BASIC METABOLIC PANEL [CHEM] DAILYLAB CBC - COMP BLD CT W/AUTO DIFF [HEME] DAILYLAB Subjective - Subjective Patient Reports: Resting Comfortably Objective Vital Signs: Vital Signs - 24 hr 11/19/21 11/19/21 11/20/21 13:58 17:41 00:59 Temperature 36.7 C 36.9 C 36.8 C Heart Rate [ 73 73 77 Brachial] Respiratory 18 18 18 Rate Blood Pressure [Left Brachial artery] Blood Pressure 114/67 101/58 L 107/60 [Right Brachial artery] O2 Saturation 97 95 96 11/20/21 11/20/21 09:42 09:43 Temperature 36.7 C Heart Rate [ 110 H 74 Brachial] Respiratory 22 Rate Blood Pressure 123/62 118/63 [Left Brachial artery] Blood Pressure [Right Brachial artery] O2 Saturation 95 Oxygen O2 Source [With Activity] Room air O2 Source Room air I&O (Last 24 Hrs): Intake and Output Totals x24h 11/18/21 11/19/21 11/20/21 23:59 23:59 23:59 Intake Total 1989 960 660 Balance 1989 960 660 General: Alert, No acute distress HEENT: Atraumatic Neck: Supple Lymphatic: no adenopathy Neuro: Alert, Non Focal Cardiovascular: Regular rate, Normal S1, Normal S2 Respiratory: Chest non-tender, No respiratory distress Abdomen: Normal bowel sounds, Soft Extremities: Normal pulses - Results Results: Laboratory Results WBC 7.1 x10^3/uL (4.8-10.8) 11/20/21 05:37 RBC 3.77 10^6/uL (4.70-6.10) L 11/20/21 05:37 Hgb 11.2 g/dL (14.0-18.0) L 11/20/21 05:37 Hct 34.8 % (42.0-52.0) L 11/20/21 05:37 MCV 92.3 fL (80.0-94.0) 11/20/21 05:37 MCH 29.7 pg (27.0-31.0) 11/20/21 05:37 MCHC 32.2 g/dL (32.0-36.0) 11/20/21 05:37 RDW 13.6 % (12.0-15.0) 11/20/21 05:37 Plt Count 642 10^3/uL (130-450) H 11/20/21 05:37 MPV 9.0 fL (7.4-11.4) 11/20/21 05:37 Neut # (Auto) 4.0 10^3/uL (1.5-6.6) 11/20/21 05:37 Lymph # (Auto) 2.0 10^3/uL (1.5-3.5) 11/20/21 05:37 [place] # (Auto) 0.7 10^3/uL (0.0-1.0) 11/20/21 05:37 Eos # (Auto) 0.4 10^3/uL (0.0-0.7) 11/20/21 05:37 Baso # (Auto) 0.1 10^3/uL (0.0-0.1) 11/20/21 05:37 Absolute Nucleated RBC 0.00 x10^3/uL 11/20/21 05:37 Nucleated RBC % 0.0 /100WBC 11/20/21 05:37 PT 11.7 secs (9.9-12.6) 11/06/21 21:20 INR 1.1 (0.8-1.2) 11/06/21 21:20 APTT 25.3 secs (24.9-33.3) 11/06/21 21:20 Sodium 134 mmol/L (135-145) L 11/20/21 05:37 Potassium 4.2 mmol/L (3.5-5.0) 11/20/21 05:37 Chloride 99 mmol/L (101-111) L 11/20/21 05:37 Carbon Dioxide 26 mmol/L (21-32) 11/20/21 05:37 Anion Gap 9.0 (6-13) 11/20/21 05:37 BUN 22 mg/dL (6-20) H 11/20/21 05:37 Creatinine 0.9 mg/dL (0.6-1.2) 11/20/21 05:37 Estimated GFR (MDRD) 83 (>89) L 11/20/21 05:37 Glucose 119 mg/dL (70-100) H 11/20/21 05:37 POC Whole Bld Glucose 196 mg/dL (70 - 100) H 11/20/21 12:01 Estimat Average Glucose 126 mg/dL (70-100) H 11/08/21 06:45 Hemoglobin A1c % 6.0 % (4.27-6.07) 11/08/21 06:45 Calcium 8.7 mg/dL (8.5-10.3) 11/20/21 05:37 Total Bilirubin 0.5 mg/dL (0.2-1.0) 11/06/21 21:20 AST 35 IU/L (10-42) 11/06/21 21:20 ALT 39 IU/L (10-60) 11/06/21 21:20 Alkaline Phosphatase 91 IU/L (42-121) 11/06/21 21:20 Total Protein 8.7 g/dL (6.7-8.2) H 11/06/21 21:20 Albumin 4.4 g/dL (3.2-5.5) 11/06/21 21:20 Globulin 4.3 g/dL (2.1-4.2) H 11/06/21 21:20 Albumin/Globulin Ratio 1.0 (1.0-2.2) 11/06/21 21:20 Lipase 38 U/L (22-51) 11/06/21 21:20 25-OH Vitamin D Total 15 ng/mL (30-100) L 11/10/21 11:14 Urine Color DARK YELLOW 11/06/21 21:12 Urine Clarity CLEAR (CLEAR) 11/06/21 21:12 Urine pH 6.0 PH (5.0-7.5) 11/06/21 21:12 Ur Specific [place] 1.020 (1.002-1.030) 11/06/21 21:12 Urine Protein TRACE mg/dL (NEGATIVE) 11/06/21 21:12 Urine Glucose (UA) 100 mg/dL (NEGATIVE) H 11/06/21 21:12 Urine Ketones NEGATIVE mg/dL (NEGATIVE) 11/06/21 21:12 Urine Occult Blood NEGATIVE (NEGATIVE) 11/06/21 21:12 Urine Nitrite NEGATIVE (NEGATIVE) 11/06/21 21:12 Urine Bilirubin NEGATIVE (NEGATIVE) 11/06/21 21:12 Urine Urobilinogen 0.2 (NORMAL) E.U./dL (NORMAL) 11/06/21 21:12 Ur Leukocyte Esterase NEGATIVE (NEGATIVE) 11/06/21 21:12 Ur Microscopic Review NOT INDICATED 11/06/21 21:12 Urine Culture Comments NOT INDICATED 11/06/21 21:12 Nasal Adenovirus (PCR) NOT DETECTED 11/11/21 11:30 Nasal B. parapertussis DNA (PCR) NOT DETECTED 11/11/21 11:30 Nasal Coronavir 229E PCR NOT DETECTED 11/11/21 11:30 Nasal Coronavir HKU1 PCR NOT DETECTED 11/11/21 11:30 Nasal Coronavir NL63 PCR NOT DETECTED 11/11/21 11:30 Nasal Coronavir OC43 PCR NOT DETECTED 11/11/21 11:30 Nasal Enterovir/Rhinovir PCR NOT DETECTED 11/11/21 11:30 Nasal Influenza B PCR NOT DETECTED 11/11/21 11:30 Nasal Influenza A PCR NOT DETECTED 11/11/21 11:30 Nasal Parainfluen 1 PCR NOT DETECTED 11/11/21 11:30 Nasal Parainfluen 2 PCR NOT DETECTED 11/11/21 11:30 Nasal Parainfluen 3 PCR NOT DETECTED 11/11/21 11:30 Nasal Parainfluen 4 PCR NOT DETECTED 11/11/21 11:30 Nasal RSV (PCR) NOT DETECTED 11/11/21 11:30 Nasal B.pertussis DNA PCR NOT DETECTED 11/11/21 11:30 Nasal C.pneumoniae (PCR) NOT DETECTED 11/11/21 11:30 Akhil Human Metapneumo PCR NOT DETECTED 11/11/21 11:30 Nasal M.pneumoniae (PCR) NOT DETECTED 11/11/21 11:30 Nasal SARS-CoV-2 (PCR) DETECTED A 11/11/21 11:30 Phenytoin 25.4 ug/mL 11/08/21 08:39 Lamotrigine 2.5 mcg/mL (4.0-18.0) L 11/08/21 08:39 Levetiracetam 17.6 mcg/mL 11/08/21 08:39 - Procedures Procedures: Procedures EXCISION OF ASCENDING COLON, ENDO (03/29/17) EXCISION OF DESCENDING COLON, ENDO (03/29/17) EXCISION OF RECTUM, ENDO (03/29/17) INSERTION OF INFUSION DEV INTO SUP VENA CAVA, PERC APPROACH (11/05/17) ABX Reporting Has patient been on IV antibiotics over the past 48 hours?: No Current Medications - Current Medications Current Medications: Active Medications Acetaminophen (Acetaminophen 325 Mg Tablet) 650 mg PO Q4HR PRN PRN Reason: Pain 1 to 4 Last Admin: 11/20/21 09:46 Dose: 650 mg Aspirin (Aspirin Ec 81 Mg Tablet) 81 mg PO DAILY [facility] Last Admin: 11/20/21 09:45 Dose: 81 mg Atorvastatin Calcium (Atorvastatin 10 Mg Tablet) 20 mg PO QPM [facility] Last Admin: 11/19/21 21:00 Dose: 20 mg Calcium Carbonate/Glycine (Calcium Carbonate Chew 500 Mg Tablet) 500 mg PO BID [facility] Last Admin: 11/20/21 09:45 Dose: 500 mg Cholecalciferol (Cholecalciferol 25 Mcg Tablet) 50 mcg PO DAILY [facility] Last Admin: 11/20/21 09:46 Dose: 50 mcg Docusate Sodium (Docusate Sodium 250 Mg Capsule) 250 - 500 mg PO DAILY [facility] Last Admin: 11/20/21 09:46 Dose: Not Given Enoxaparin Sodium (Enoxaparin 40 Mg/0.4 Ml Syringe) 40 mg SUBQ DAILY [facility] Last Admin: 11/20/21 09:44 Dose: 40 mg Finasteride (Finasteride 5 Mg Tablet) 5 mg PO DAILY [facility] Last Admin: 11/20/21 09:46 Dose: 5 mg Insulin Aspart (Insulin Aspart 300 Unit/3 Ml Pen) 3 - 11 unit SUBQ 0800,1200,1 700,2100 [facility]; Protocol Last Admin: 11/20/21 12:14 Dose: 5 unit Insulin Glargine (Insulin Glargine 300 Unit/3 Ml Pen) 10 unit SUBQ QPM [facility] Last Admin: 11/19/21 21:00 Dose: 10 unit Lamotrigine (Lamotrigine 25 Mg Tablet) 25 mg PO BID [facility] Last Admin: 11/20/21 09:45 Dose: 25 mg Lamotrigine (Lamotrigine 100 Mg Tablet) 200 mg PO BID [facility] Last Admin: 11/20/21 09:46 Dose: 200 mg Levetiracetam (Levetiracetam 250 Mg Tablet) 1,000 mg PO BID [facility] Last Admin: 11/20/21 09:45 Dose: 1,000 mg Lorazepam (Lorazepam 2 Mg/Ml Vial) 2 mg IVP Q2H PRN PRN Reason: Seizure Metoprolol Succinate (Metoprolol Succinate 25 Mg Tablet) 12.5 mg PO BID [facility] Last Admin: 11/20/21 09:45 Dose: 12.5 mg Ondansetron HCl (Ondansetron Odt 4 Mg Tablet) 4 mg TL Q6HR PRN PRN Reason: Nausea / Vomiting Ondansetron HCl (Ondansetron 4 Mg/2 Ml Vial) 4 mg IVP Q6HR PRN PRN Reason: Nausea / Vomiting Last Admin: 11/10/21 12:35 Dose: 4 mg Oxycodone HCl (Oxycodone 5 Mg Tablet) 10 mg PO Q4HR PRN PRN Reason: Pain 8 to 10 Last Admin: 11/14/21 14:45 Dose: 10 mg Phenytoin Sodium (Phenytoin Er 100 Mg Capsule) 300 mg PO DAILY [facility] Last Admin: 11/20/21 09:45 Dose: 300 mg Phenytoin Sodium (Phenytoin Er 100 Mg Capsule) 400 mg PO QPM [facility] Last Admin: 11/19/21 21:00 Dose: 400 mg Polyethylene Glycol (Polyethylene Glycol 3350 17 Gm Packet) 17 gm PO DAILY [facility] Last Admin: 11/20/21 09:47 Dose: 17 gm Senna (Senna 8.6 Mg Tablet) 8.6 - 17.2 mg PO DAILY [facility] Last Admin: 11/20/21 09:46 Dose: Not Given Sodium Chloride (Sodium Chloride Flush 0.9% 10 Ml Syringe) 10 ml IVP PRN PRN PRN Reason: NEEDED PER PROVIDER ORDERS Last Admin: 11/08/21 16:44 Dose: 10 ml Sodium Chloride (Sodium Chloride Flush 0.9% 10 Ml Syringe) 10 ml IVP 0100,0900,1700 [facility] Last Admin: 11/20/21 09:46 Dose: Not Given Tamsulosin HCl (Tamsulosin 0.4 Mg Capsule) 0.4 mg PO DAILY [facility] Last Admin: 11/20/21 09:45 Dose: 0.4 mg Topiramate (Topiramate 25 Mg Tablet) 50 mg PO BID JAKE Last Admin: 11/20/21 09:45 Dose: 50 mg Phenytoin Sodium Extended [Dilantin] 300 mg PO DAILY 05/18/13 [id number] ER [Glucotrol Xl] 2.5 mg PO DAILY 12/19/17 Metoprolol Succinate 12.5 mg PO BID 09/04/18
[2021-11-20] MEDS: ATORVASTATIN 10 MG TABLET PO SCH (22:01)
[2021-11-20] MEDS: INSULIN GLARGINE 300 UNIT/3 ML PEN SUBQ SCH (22:01)
[2021-11-21] MEDS: SODIUM CHLORIDE FLUSH 0.9% 10 ML SYRINGE IVP SCH ×4 (00:44→16:55)
--- NOTE | 2021-11-21 05:16 | PROVIDER PROGRESS NOTE ---
Assessment/Plan - Problem List (1) Closed right hip fracture Qualifiers: Encounter type: subsequent encounter Assessment/Plan: 11/21 Pt has no compl,aints, pain under control and he is working with PT after hip surgery. Social Work is working on securing him placement. 11/20 pt is setting at chair and comfortable. [employer] worker was consulted for disposition planning. pt is pending for replacement. 11/19 pt is comfortable. pt is pending for placement, [employer] worker was consulted for disposition planning 11/18 pt is doing well, Hemodynamically stable. he ate 100% his breakfast. Patient is stable for disposition. pt has hx of brain injury and poorly followup instruction to have PT/OT. Per medical social worker report, Patient family choose long- term care for patient, medical social worker help for Disposition planning. 11/17 pt is ready for d/c, pt is comfortable rest in the bed. consult with medical social worker for Disposition planning, continue physical therapist and occupational therapist, continue pain control. 11/16 pt has hx of brain injury, he did not followup fairly with PT/OT instruction to have the evaluation in the treatment. Discussed and updated patient condition to patient's son, he will come to hospital with Nasal Mask to see his father because of Covid 19, he will discuss Disposition planing With medical social worker. Stable but pt is not motivated to join PT/OT activity. pt has hx of brain injury. This is Postop day #8 of right hip repair. Patient working with PT/OT. Plan is for [facility] to a [facility] facility, continue consult with medical social worker for placement planning. Continued pain management. (2) COVID-19 Assessment/Plan: Pt was newly diagnosed as Covid (+) on 11/11/2021 after he was tested in preparation for discharge to [facility] facility. Stable currently. Patient is asymptomatic without fever, cough, stable O2 sat without respiratory distress.Currently no need for Decadron or remdesivir. Continue to monitor. Lovenox for DVT prophylaxis. (3) Seizure disorder Assessment/Plan: Stable. No further seizures On Keppra 1000 mg p.o. twice daily and Lamictal 200 mg p.o. twice daily. Phenytoin 300 mg p.o. daily and 400 mg p.o. every afternoon. Topamax 50 mg p.o. twice daily. Also PRN Ativan for acute seizure (4) History of coronary artery disease Assessment/Plan: Stable, On metoprolol succinate 12.5 mg p.o. twice daily. Aspirin 81 mg p.o. daily. Atorvastatin 20 mg p.o. every afternoon (5) Type 2 diabetes mellitus stable, continue carb controlled diet, glucose checks, sliding scale Insulin coverage, Lantus dosing, hypoglycemia protocol. 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 He is at his baseline. 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 (7) BPH Continue Flonax and Proscar - Current Meds Current Meds: Current Medications Generic Name Dose Route Start Last Admin Trade Name Freq PRN Reason Stop Dose Admin Acetaminophen 650 mg 11/06/21 21:18 11/20/21 09:46 Acetaminophen 325 Mg Tablet PO 650 mg Q4HR PRN Administration Pain 1 to 4 Aspirin 81 mg 11/08/21 09:00 11/20/21 09:45 Aspirin Ec 81 Mg Tablet PO 81 mg DAILY JAKE Administration Atorvastatin Calcium 20 mg 11/06/21 23:00 11/20/21 22:01 Atorvastatin 10 Mg Tablet PO 20 mg QPM JAKE Administration Calcium Carbonate/Glycine 500 mg 11/11/21 10:00 11/20/21 21:59 Calcium Carbonate Chew 500 Mg Tablet PO 500 mg BID JAKE Administration Cholecalciferol 50 mcg 11/11/21 09:00 11/20/21 09:46 Cholecalciferol 25 Mcg Tablet PO 50 mcg DAILY JAKE Administration Docusate Sodium 250 - 500 mg 11/11/21 11:00 11/20/21 09:46 Docusate Sodium 250 Mg Capsule PO Not Given DAILY [facility] Enoxaparin Sodium 40 mg 11/08/21 13:00 11/20/21 09:44 Enoxaparin 40 Mg/0.4 Ml Syringe SUBQ 40 mg DAILY JAKE Administration Finasteride 5 mg 11/08/21 09:00 11/20/21 09:46 Finasteride 5 Mg Tablet PO 5 mg DAILY JAKE Administration Insulin Aspart 3 - 11 unit 11/09/21 12:00 11/20/21 22:02 Insulin Aspart 300 Unit/3 Ml Pen SUBQ 3 unit 0800,1200,1700,2100 JAKE Administration Protocol Insulin Glargine 10 unit 11/10/21 21:00 11/20/21 22:01 Insulin Glargine 300 Unit/3 Ml Pen SUBQ 10 unit QPM JAKE Administration Lamotrigine 25 mg 11/06/21 22:00 11/20/21 22:00 Lamotrigine 25 Mg Tablet PO 25 mg BID JAKE Administration Lamotrigine 200 mg 11/06/21 22:00 11/20/21 22:00 Lamotrigine 100 Mg Tablet PO 200 mg BID JAKE Administration Levetiracetam 1,000 mg 11/06/21 23:00 11/20/21 22:00 Levetiracetam 250 Mg Tablet PO 1,000 mg BID JAKE Administration Metoprolol Succinate 12.5 mg 11/06/21 22:00 11/20/21 21:59 Metoprolol Succinate 25 Mg Tablet PO 12.5 mg BID JAKE Administration Ondansetron HCl 4 mg 11/06/21 21:18 11/10/21 12:35 Ondansetron 4 Mg/2 Ml Vial IVP 4 mg Q6HR PRN Administration Nausea / Vomiting Oxycodone HCl 10 mg 11/06/21 21:18 11/14/21 14:45 Oxycodone 5 Mg Tablet PO 10 mg Q4HR PRN Administration Pain 8 to 10 Phenytoin Sodium 300 mg 11/07/21 09:00 11/20/21 09:45 Phenytoin Er 100 Mg Capsule PO 300 mg DAILY JAKE Administration Phenytoin Sodium 400 mg 11/06/21 23:00 11/20/21 22:01 Phenytoin Er 100 Mg Capsule PO 400 mg QPM JAKE Administration Polyethylene Glycol 17 gm 11/09/21 10:00 11/20/21 09:47 Polyethylene Glycol 3350 17 Gm Packet PO 17 gm DAILY JAKE Administration Senna 8.6 - 17.2 mg 11/11/21 11:00 11/20/21 09:46 Senna 8.6 Mg Tablet PO Not Given DAILY JAKE Sodium Chloride 10 ml 11/06/21 21:18 11/08/21 16:44 Sodium Chloride Flush 0.9% 10 Ml Syringe IVP 10 ml PRN PRN Administration NEEDED PER PROVIDER ORDERS Sodium Chloride 10 ml 11/07/21 01:00 11/21/21 00:44 Sodium Chloride Flush 0.9% 10 Ml Syringe IVP Not Given 0100,0900,1700 [facility] Tamsulosin HCl 0.4 mg 11/08/21 09:00 11/20/21 09:45 Tamsulosin 0.4 Mg Capsule PO 0.4 mg DAILY JAKE Administration Topiramate 50 mg 11/06/21 23:00 11/20/21 22:00 Topiramate 25 Mg Tablet PO 50 mg BID JAKE Administration - Lab Result Fish Bone Diagrams: 11/20/21 05:37 11/20/21 05:37 Subjective - Subjective Patient Reports: Resting Comfortably, No Complaints Objective Vital Signs: Vital Signs - 24 hr 11/20/21 11/20/21 11/20/21 09:42 09:43 18:36 Temperature 36.7 C 36.5 C Heart Rate [ 110 H 74 72 Brachial] Respiratory 22 22 Rate Blood Pressure 123/62 118/63 103/67 [Left Brachial artery] Blood Pressure [Right Brachial artery] O2 Saturation 95 97 11/21/21 00:44 Temperature 36.7 C Heart Rate [ 80 Brachial] Respiratory 16 Rate Blood Pressure [Left Brachial artery] Blood Pressure 133/76 H [Right Brachial artery] O2 Saturation 100 Oxygen O2 Source [With Activity] Room air O2 Source Room air I&O (Last 24 Hrs): Intake and Output Totals x24h 11/19/21 11/20/21 11/21/21 23:59 23:59 23:59 Intake Total 960 1560 Balance 960 1560 General: Alert, No acute distress HEENT: EOMI, Mucous membr. moist/pink Neck: Supple, No JVD Neuro: Alert, Non Focal Cardiovascular: Regular rate, No murmurs Respiratory: No respiratory distress, Breath sounds nml Abdomen: Normal bowel sounds, Soft Extremities: No edema - Results Results: Laboratory Results WBC 7.1 x10^3/uL (4.8-10.8) 11/20/21 05:37 RBC 3.77 10^6/uL (4.70-6.10) L 11/20/21 05:37 Hgb 11.2 g/dL (14.0-18.0) L 11/20/21 05:37 Hct 34.8 % (42.0-52.0) L 11/20/21 05:37 MCV 92.3 fL (80.0-94.0) 11/20/21 05:37 MCH 29.7 pg (27.0-31.0) 11/20/21 05:37 MCHC 32.2 g/dL (32.0-36.0) 11/20/21 05:37 RDW 13.6 % (12.0-15.0) 11/20/21 05:37 Plt Count 642 10^3/uL (130-450) H 11/20/21 05:37 MPV 9.0 fL (7.4-11.4) 11/20/21 05:37 Neut # (Auto) 4.0 10^3/uL (1.5-6.6) 11/20/21 05:37 Lymph # (Auto) 2.0 10^3/uL (1.5-3.5) 11/20/21 05:37 Coos # (Auto) 0.7 10^3/uL (0.0-1.0) 11/20/21 05:37 Eos # (Auto) 0.4 10^3/uL (0.0-0.7) 11/20/21 05:37 Baso # (Auto) 0.1 10^3/uL (0.0-0.1) 11/20/21 05:37 Absolute Nucleated RBC 0.00 x10^3/uL 11/20/21 05:37 Nucleated RBC % 0.0 /100WBC 11/20/21 05:37 PT 11.7 secs (9.9-12.6) 11/06/21 21:20 INR 1.1 (0.8-1.2) 11/06/21 21:20 APTT 25.3 secs (24.9-33.3) 11/06/21 21:20 Sodium 134 mmol/L (135-145) L 11/20/21 05:37 Potassium 4.2 mmol/L (3.5-5.0) 11/20/21 05:37 Chloride 99 mmol/L (101-111) L 11/20/21 05:37 Carbon Dioxide 26 mmol/L (21-32) 11/20/21 05:37 Anion Gap 9.0 (6-13) 11/20/21 05:37 BUN 22 mg/dL (6-20) H 11/20/21 05:37 Creatinine 0.9 mg/dL (0.6-1.2) 11/20/21 05:37 Estimated GFR (MDRD) 83 (>89) L 11/20/21 05:37 Glucose 119 mg/dL (70-100) H 11/20/21 05:37 POC Whole Bld Glucose 164 mg/dL (70 - 100) H 11/20/21 22:01 Estimat Average Glucose 126 mg/dL (70-100) H 11/08/21 06:45 Hemoglobin A1c % 6.0 % (4.27-6.07) 11/08/21 06:45 Calcium 8.7 mg/dL (8.5-10.3) 11/20/21 05:37 Total Bilirubin 0.5 mg/dL (0.2-1.0) 11/06/21 21:20 AST 35 IU/L (10-42) 11/06/21 21:20 ALT 39 IU/L (10-60) 11/06/21 21:20 Alkaline Phosphatase 91 IU/L (42-121) 11/06/21 21:20 Total Protein 8.7 g/dL (6.7-8.2) H 11/06/21 21:20 Albumin 4.4 g/dL (3.2-5.5) 11/06/21 21:20 Globulin 4.3 g/dL (2.1-4.2) H 11/06/21 21:20 Albumin/Globulin Ratio 1.0 (1.0-2.2) 11/06/21 21:20 Lipase 38 U/L (22-51) 11/06/21 21:20 25-OH Vitamin D Total 15 ng/mL (30-100) L 11/10/21 11:14 Urine Color DARK YELLOW 11/06/21 21:12 Urine Clarity CLEAR (CLEAR) 11/06/21 21:12 Urine pH 6.0 PH (5.0-7.5) 11/06/21 21:12 Ur Specific [place] 1.020 (1.002-1.030) 11/06/21 21:12 Urine Protein TRACE mg/dL (NEGATIVE) 11/06/21 21:12 Urine Glucose (UA) 100 mg/dL (NEGATIVE) H 11/06/21 21:12 Urine Ketones NEGATIVE mg/dL (NEGATIVE) 11/06/21 21:12 Urine Occult Blood NEGATIVE (NEGATIVE) 11/06/21 21:12 Urine Nitrite NEGATIVE (NEGATIVE) 11/06/21 21:12 Urine Bilirubin NEGATIVE (NEGATIVE) 11/06/21 21:12 Urine Urobilinogen 0.2 (NORMAL) E.U./dL (NORMAL) 11/06/21 21:12 Ur Leukocyte Esterase NEGATIVE (NEGATIVE) 11/06/21 21:12 Ur Microscopic Review NOT INDICATED 11/06/21 21:12 Urine Culture Comments NOT INDICATED 11/06/21 21:12 Nasal Adenovirus (PCR) NOT DETECTED 11/11/21 11:30 Nasal B. parapertussis DNA (PCR) NOT DETECTED 11/11/21 11:30 Nasal Coronavir 229E PCR NOT DETECTED 11/11/21 11:30 Nasal Coronavir HKU1 PCR NOT DETECTED 11/11/21 11:30 Nasal Coronavir NL63 PCR NOT DETECTED 11/11/21 11:30 Nasal Coronavir OC43 PCR NOT DETECTED 11/11/21 11:30 Nasal Enterovir/Rhinovir PCR NOT DETECTED 11/11/21 11:30 Nasal Influenza B PCR NOT DETECTED 11/11/21 11:30 Nasal Influenza A PCR NOT DETECTED 11/11/21 11:30 Nasal Parainfluen 1 PCR NOT DETECTED 11/11/21 11:30 Nasal Parainfluen 2 PCR NOT DETECTED 11/11/21 11:30 Nasal Parainfluen 3 PCR NOT DETECTED 11/11/21 11:30 Nasal Parainfluen 4 PCR NOT DETECTED 11/11/21 11:30 Nasal RSV (PCR) NOT DETECTED 11/11/21 11:30 Nasal B.pertussis DNA PCR NOT DETECTED 11/11/21 11:30 Nasal C.pneumoniae (PCR) NOT DETECTED 11/11/21 11:30 Akhil Human Metapneumo PCR NOT DETECTED 11/11/21 11:30 Nasal M.pneumoniae (PCR) NOT DETECTED 11/11/21 11:30 Nasal SARS-CoV-2 (PCR) DETECTED A 11/11/21 11:30 Phenytoin 25.4 ug/mL 11/08/21 08:39 Lamotrigine 2.5 mcg/mL (4.0-18.0) L 11/08/21 08:39 Levetiracetam 17.6 mcg/mL 11/08/21 08:39 - Procedures Procedures: Procedures EXCISION OF ASCENDING COLON, ENDO (03/29/17) EXCISION OF DESCENDING COLON, ENDO (03/29/17) EXCISION OF RECTUM, ENDO (03/29/17) INSERTION OF INFUSION DEV INTO SUP VENA CAVA, PERC APPROACH (11/05/17)
[2021-11-21 06:29] LABS: BASOPHILS # (AUTO) 0.1 10^3/uL (0.0-0.1); BASOPHILS % (AUTO) 0.8 %; EOSINOPHILS # (AUTO) 0.5 10^3/uL (0.0-0.7); HCT - HEMATOCRIT 37.4 % (42.0-52.0); HGB - HEMOGLOBIN 12.1 g/dL (14.0-18.0); LYMPHOCYTES # (AUTO) 1.7 10^3/uL (1.5-3.5); MEAN CORPUSCULAR HEMOGLOBIN 29.8 pg (27.0-31.0); MEAN CORPUSCULAR HGB CONC 32.4 g/dL (32.0-36.0); MEAN CORPUSCULAR VOLUME 92.1 fL (80.0-94.0); MEAN PLATELET VOLUME 8.7 fL (7.4-11.4); MONOCYTES # (AUTO) 0.8 10^3/uL (0.0-1.0); MONOCYTES % (AUTO) 9.9 %; NEUTROPHILS # (AUTO) 5.3 10^3/uL (1.5-6.6); NEUTROPHILS % (AUTO) 62.8 %; PLT - PLATELET COUNT 685 10^3/uL (130-450); RED BLOOD COUNT 4.06 10^6/uL (4.70-6.10); RED CELL DISTRIBUTION WIDTH 13.7 % (12.0-15.0); WHITE BLOOD COUNT 8.4 x10^3/uL (4.8-10.8)
[2021-11-21 06:43] LABS: CALCIUM 9.2 mg/dL (8.5-10.3); CREATININE 0.9 mg/dL (0.6-1.2); POTASSIUM 4.1 mmol/L (3.5-5.0)
[2021-11-21] MEDS: INSULIN ASPART 300 UNIT/3 ML PEN SUBQ SCH ×4 (09:20→21:29)
[2021-11-21] MEDS: ASPIRIN EC 81 MG TABLET PO SCH (09:21)
[2021-11-21] MEDS: CALCIUM CARBONATE CHEW 500 MG TABLET PO SCH ×2 (09:21→21:27)
[2021-11-21] MEDS: TOPIRAMATE 25 MG TABLET PO SCH ×2 (09:21→21:27)
[2021-11-21] MEDS: CHOLECALCIFEROL 25 MCG TABLET PO SCH (09:21)
[2021-11-21] MEDS: DOCUSATE SODIUM 250 MG CAPSULE PO SCH (09:21)
[2021-11-21] MEDS: lamoTRIgine 100 MG TABLET PO SCH ×2 (09:22→21:27)
[2021-11-21] MEDS: levETIRAcetam 250 MG TABLET PO SCH ×2 (09:22→21:26)
[2021-11-21] MEDS: lamoTRIgine 25 MG TABLET PO SCH ×2 (09:22→21:28)
[2021-11-21] MEDS: TAMSULOSIN 0.4 MG CAPSULE PO SCH (09:22)
[2021-11-21] MEDS: SENNA 8.6 MG TABLET PO SCH (09:22)
[2021-11-21] MEDS: ENOXAPARIN 40 MG/0.4 ML SYRINGE SUBQ SCH (09:22)
[2021-11-21] MEDS: FINASTERIDE 5 MG TABLET PO SCH (09:22)
[2021-11-21] MEDS: PHENYTOIN ER 100 MG CAPSULE PO SCH ×2 (09:22→21:26)
[2021-11-21] MEDS: polyethylene glycoL 3350 17 GM PACKET PO SCH (09:23)
[2021-11-21] MEDS: METOPROLOL SUCCINATE 25 MG TABLET PO SCH ×2 (09:23→21:27)
[2021-11-21] MEDS: ATORVASTATIN 10 MG TABLET PO SCH (21:27)
[2021-11-21] MEDS: INSULIN GLARGINE 300 UNIT/3 ML PEN SUBQ SCH (21:28)
[2021-11-22] MEDS: SODIUM CHLORIDE FLUSH 0.9% 10 ML SYRINGE IVP SCH ×3 (04:13→17:40)
[2021-11-22] MEDS: INSULIN ASPART 300 UNIT/3 ML PEN SUBQ SCH ×4 (08:01→21:31)
[2021-11-22] MEDS: TAMSULOSIN 0.4 MG CAPSULE PO SCH (08:05)
[2021-11-22] MEDS: polyethylene glycoL 3350 17 GM PACKET PO SCH (08:05)
[2021-11-22] MEDS: TOPIRAMATE 25 MG TABLET PO SCH ×2 (08:05→21:33)
[2021-11-22] MEDS: ACETAMINOPHEN 325 MG TABLET PO PRN (08:05)
[2021-11-22] MEDS: CHOLECALCIFEROL 25 MCG TABLET PO SCH (08:05)
[2021-11-22] MEDS: DOCUSATE SODIUM 250 MG CAPSULE PO SCH (08:06)
[2021-11-22] MEDS: PHENYTOIN ER 100 MG CAPSULE PO SCH ×2 (08:06→21:33)
[2021-11-22] MEDS: lamoTRIgine 100 MG TABLET PO SCH ×2 (08:06→21:33)
[2021-11-22] MEDS: ASPIRIN EC 81 MG TABLET PO SCH (08:07)
[2021-11-22] MEDS: levETIRAcetam 250 MG TABLET PO SCH ×2 (08:07→21:32)
[2021-11-22] MEDS: oxyCODONE 5 MG TABLET PO PRN (08:07)
[2021-11-22] MEDS: SENNA 8.6 MG TABLET PO SCH (08:07)
[2021-11-22] MEDS: FINASTERIDE 5 MG TABLET PO SCH (08:07)
[2021-11-22] MEDS: lamoTRIgine 25 MG TABLET PO SCH ×2 (08:07→21:33)
[2021-11-22] MEDS: ENOXAPARIN 40 MG/0.4 ML SYRINGE SUBQ SCH (08:07)
[2021-11-22] MEDS: CALCIUM CARBONATE CHEW 500 MG TABLET PO SCH ×2 (08:08→21:33)
[2021-11-22] MEDS: METOPROLOL SUCCINATE 25 MG TABLET PO SCH ×2 (08:08→21:33)
--- NOTE | 2021-11-22 09:51 | PROVIDER PROGRESS NOTE ---
Progress Note November 22, 2021 9:43 AM Mr. Salas is a merry 75-year-old man who has cognitive and neurobehavioral dysfunction after brain injury. He speaks with a slow, pedantic, speech pattern. Has problems forming his words but he is lucid, and struggles to be socially appropriate. Repetitively loves to tell his story of his his parents being from [place]. But then stops and cannot remember what his other family history is such as where his grandparents are from. Also talks about his family. He is a little bit dismayed that he cannot remember beyond his parents. He does not remember aunts and uncles, or his grandparents and he thinks that is a bad thing. He presented to us with a closed right hip fracture. Underwent surgery without any postoperative complications. On the day of discharge we did COVID testing prior to transferring him to a [facility] facility and he was positive. He has not had any symptoms. No hypoxemia. He is out of quarantine as of yesterday. Medications are Tylenol, Ecotrin, Lipitor, Tums, D3, Colace, Lovenox, Proscar, Lantus 10 units in the evening, NovoLog sliding scale with meals, Lamictal, Keppra, as needed Ativan, Toprol-XL twice daily, Zofran as needed, Roxicodone as needed, Dilantin, MiraLAX, Senokot, Flomax, Topamax. Temperature is 36.5. Heart rate 71. Blood pressure 103/61. Respirations 17. 94% on room air. Pleasant, 6 feet 2 inch tall gangly male who weighs 89.3 kg. Speech is slow, pedantic, cognitively delayed but he is oriented to person, place and today's date. Neck is supple. No JVD. Lungs are clear, shallow unlabored respiration. Regular rate and rhythm. Abdomen is soft, nontender. Extremities are without edema. His wound is closed, healed, no redness or heat. Assessment/plan Closed right hip fracture. Surgery was November 07 where he underwent a right hemiarthroplasty using a [employer] #15, noncemented femoral component, +0. Standard offset was 54 mm unipolar femoral head. Acute postoperative anemia did not require transfusion. He was admitted at 14.3, and lowest hemoglobin was 10.9. He was 12.1 yesterday. Asymptomatic COVID-19 patient. He is never had fever, cough, and was never hypoxic. On Lovenox for DVT prophylaxis. Seizure disorder. Reportedly will get a seizure if he is "stressed or anxious". He did have 1 episode of disorientation during the stay but has been otherwise well controlled with his Keppra, Lamictal, Dilantin, Topamax. Type 2 diabetes mellitus. Controlled. Without complication. Not on long-term use of insulin. When he was admitted he was admitted on metformin. That was discontinued and he has been on Lantus and NovoLog. Glycosylated hemoglobin was 6 on admission. When he is discharged, he will be resumed on his usual metfo rmin. Cognitive and neurobehavioral dysfunction following brain injury. At baseline. Merry, cooperative gentleman. Benign prostatic hypertrophy with lower urinary tract symptoms of obstruction. He is doing well with his usual home meds of Flomax and Proscar.
[2021-11-22] MEDS: INSULIN GLARGINE 300 UNIT/3 ML PEN SUBQ SCH (21:31)
[2021-11-22] MEDS: ATORVASTATIN 10 MG TABLET PO SCH (21:33)
[2021-11-23] MEDS: SODIUM CHLORIDE FLUSH 0.9% 10 ML SYRINGE IVP SCH ×3 (00:58→16:52)
[2021-11-23] MEDS: INSULIN ASPART 300 UNIT/3 ML PEN SUBQ SCH ×4 (08:32→21:38)
[2021-11-23] MEDS: TAMSULOSIN 0.4 MG CAPSULE PO SCH (08:33)
[2021-11-23] MEDS: DOCUSATE SODIUM 250 MG CAPSULE PO SCH (08:33)
[2021-11-23] MEDS: FINASTERIDE 5 MG TABLET PO SCH (08:33)
[2021-11-23] MEDS: ASPIRIN EC 81 MG TABLET PO SCH (08:33)
[2021-11-23] MEDS: ENOXAPARIN 40 MG/0.4 ML SYRINGE SUBQ SCH (08:33)
[2021-11-23] MEDS: MULTIVITAMIN W/MINERALS TABLET PO SCH (08:33)
[2021-11-23] MEDS: CALCIUM CARBONATE CHEW 500 MG TABLET PO SCH ×2 (08:33→21:34)
[2021-11-23] MEDS: SENNA 8.6 MG TABLET PO SCH (08:34)
[2021-11-23] MEDS: PHENYTOIN ER 100 MG CAPSULE PO SCH ×2 (08:34→21:34)
[2021-11-23] MEDS: lamoTRIgine 100 MG TABLET PO SCH ×2 (08:34→21:35)
[2021-11-23] MEDS: polyethylene glycoL 3350 17 GM PACKET PO SCH (08:34)
[2021-11-23] MEDS: TOPIRAMATE 25 MG TABLET PO SCH ×2 (08:34→21:34)
[2021-11-23] MEDS: lamoTRIgine 25 MG TABLET PO SCH ×2 (08:34→21:35)
[2021-11-23] MEDS: METOPROLOL SUCCINATE 25 MG TABLET PO SCH ×2 (08:35→21:46)
[2021-11-23] MEDS: levETIRAcetam 250 MG TABLET PO SCH ×2 (09:11→21:34)
--- NOTE | 2021-11-23 14:18 | PROVIDER PROGRESS NOTE ---
Assessment/Plan - Problem List (1) Closed right hip fracture Qualifiers: Encounter type: subsequent encounter Assessment/Plan: 11/23 pt had right hip fracture repaired, then pt had PT/OT evaluation and treatment. per pt's family, pt is planned to d/c to [facility]. social worker aide was consulted for placement (2) COVID-19 Pt was newly diagnosed as Covid (+) on 11/11/2021 after he was tested in preparation for discharge. Patient was asymptomatic without fever, cough, stable O2 sat without respiratory distress, so pt was not treated for Covid 19. (3) Seizure disorder Assessment/Plan: Stable. No further seizures On Keppra 1000 mg p.o. twice daily and Lamictal 200 mg p.o. twice daily. Phenytoin 300 mg p.o. daily and 400 mg p.o. every afternoon. Topamax 50 mg p.o. twice daily. Also PRN Ativan for acute seizure (4) History of coronary artery disease Assessment/Plan: Stable, On metoprolol succinate 12.5 mg p.o. twice daily. Aspirin 81 mg p.o. daily. Atorvastatin 20 mg p.o. every afternoon (5) Type 2 diabetes mellitus stable, continue carb controlled diet, glucose checks, sliding scale Insulin coverage, Lantus dosing, hypoglycemia protocol. 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 He is at his baseline. 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 (7) BPH Continue Flonax and Proscar - Current Meds Current Meds: Current Medications Generic Name Dose Route Start Last Admin Trade Name Freq PRN Reason Stop Dose Admin Acetaminophen 650 mg 11/06/21 21:18 11/22/21 08:05 Acetaminophen 325 Mg Tablet PO 650 mg Q4HR PRN Administration Pain 1 to 4 Aspirin 81 mg 11/08/21 09:00 11/23/21 08:33 Aspirin Ec 81 Mg Tablet PO 81 mg DAILY JAKE Administration Atorvastatin Calcium 20 mg 11/06/21 23:00 11/22/21 21:33 Atorvastatin 10 Mg Tablet PO 20 mg QPM JAKE Administration Calcium Carbonate/Glycine 500 mg 11/11/21 10:00 11/23/21 08:33 Calcium Carbonate Chew 500 Mg Tablet PO 500 mg BID JAKE Administration Docusate Sodium 250 - 500 mg 11/11/21 11:00 11/23/21 08:33 Docusate Sodium 250 Mg Capsule PO 250 mg DAILY JAKE Administration Enoxaparin Sodium 40 mg 11/08/21 13:00 11/23/21 08:33 Enoxaparin 40 Mg/0.4 Ml Syringe SUBQ 40 mg DAILY JAKE Administration Finasteride 5 mg 11/08/21 09:00 11/23/21 08:33 Finasteride 5 Mg Tablet PO 5 mg DAILY JAKE Administration Insulin Aspart 3 - 11 unit 11/09/21 12:00 11/23/21 11:52 Insulin Aspart 300 Unit/3 Ml Pen SUBQ 3 unit 0800,1200,1700,2100 [facility] Administration Protocol Insulin Glargine 10 unit 11/10/21 21:00 11/22/21 21:31 Insulin Glargine 300 Unit/3 Ml Pen SUBQ 10 unit QPM JAKE Administration Lamotrigine 25 mg 11/06/21 22:00 11/23/21 08:34 Lamotrigine 25 Mg Tablet PO 25 mg BID JAKE Administration Lamotrigine 200 mg 11/06/21 22:00 11/23/21 08:34 Lamotrigine 100 Mg Tablet PO 200 mg BID JAKE Administration Levetiracetam 1,000 mg 11/06/21 23:00 11/23/21 09:11 Levetiracetam 250 Mg Tablet PO 1,000 mg BID JAKE Administration Metoprolol Succinate 12.5 mg 11/06/21 22:00 11/23/21 08:35 Metoprolol Succinate 25 Mg Tablet PO 12.5 mg BID JAKE Administration Multivitamins/Minerals 1 tab 11/23/21 08:00 11/23/21 08:33 Multivitamin W/Minerals Tablet PO 1 tab DAILYWM JAKE Administration Ondansetron HCl 4 mg 11/06/21 21:18 11/10/21 12:35 Ondansetron 4 Mg/2 Ml Vial IVP 4 mg Q6HR PRN Administration Nausea / Vomiting Oxycodone HCl 10 mg 11/06/21 21:18 11/22/21 08:07 Oxycodone 5 Mg Tablet PO 10 mg Q4HR PRN Administration Pain 8 to 10 Phenytoin Sodium 300 mg 11/07/21 09:00 11/23/21 08:34 Phenytoin Er 100 Mg Capsule PO 300 mg DAILY JAKE Administration Phenytoin Sodium 400 mg 11/06/21 23:00 11/22/21 21:33 Phenytoin Er 100 Mg Capsule PO 400 mg QPM JAKE Administration Polyethylene Glycol 17 gm 11/09/21 10:00 11/23/21 08:34 Polyethylene Glycol 3350 17 Gm Packet PO 17 gm DAILY JAKE Administration Senna 8.6 - 17.2 mg 11/11/21 11:00 11/23/21 08:34 Senna 8.6 Mg Tablet PO 8.6 mg DAILY JAKE Administration Sodium Chloride 10 ml 11/06/21 21:18 11/08/21 16:44 Sodium Chloride Flush 0.9% 10 Ml Syringe IVP 10 ml PRN PRN Administration NEEDED PER PROVIDER ORDERS Sodium Chloride 10 ml 11/07/21 01:00 11/23/21 08:35 Sodium Chloride Flush 0.9% 10 Ml Syringe IVP Not Given 0100,0900,1700 JAKE Tamsulosin HCl 0.4 mg 11/08/21 09:00 11/23/21 08:33 Tamsulosin 0.4 Mg Capsule PO 0.4 mg DAILY JAKE Administration Topiramate 50 mg 11/06/21 23:00 11/23/21 08:34 Topiramate 25 Mg Tablet PO 50 mg BID JAKE Administration - Lab Result Fish Bone Diagrams: 11/21/21 05:50 11/21/21 05:50 Subjective - Subjective Patient Reports: Resting Comfortably Objective Vital Signs: Vital Signs - 24 hr 11/22/21 11/22/21 11/23/21 15:38 23:36 13:20 Temperature 36.5 C 36.7 C 36.5 C Heart Rate [ 74 77 68 Brachial] Respiratory 16 16 18 Rate Blood Pressure 100/59 L 112/62 127/79 [Right Brachial artery] O2 Saturation 98 100 98 Oxygen O2 Source [With Activity] Room air O2 Source Room air I&O (Last 24 Hrs): Intake and Output Totals x24h 11/21/21 11/22/21 11/23/21 23:59 23:59 23:59 Intake Total 1130 1640 670 Output Total 3 Balance 1130 1640 667 General: Alert, No acute distress HEENT: Atraumatic Neck: Supple Lymphatic: no adenopathy Neuro: Alert, Non Focal Cardiovascular: Regular rate, Normal S1, Normal S2 Respiratory: Chest non-tender, No respiratory distress Abdomen: Normal bowel sounds, Soft Extremities: Normal pulses - Results Results: Laboratory Results WBC 8.4 x10^3/uL (4.8-10.8) 11/21/21 05:50 RBC 4.06 10^6/uL (4.70-6.10) L 11/21/21 05:50 Hgb 12.1 g/dL (14.0-18.0) L 11/21/21 05:50 Hct 37.4 % (42.0-52.0) L 11/21/21 05:50 MCV 92.1 fL (80.0-94.0) 11/21/21 05:50 MCH 29.8 pg (27.0-31.0) 11/21/21 05:50 MCHC 32.4 g/dL (32.0-36.0) 11/21/21 05:50 RDW 13.7 % (12.0-15.0) 11/21/21 05:50 Plt Count 685 10^3/uL (130-450) H 11/21/21 05:50 MPV 8.7 fL (7.4-11.4) 11/21/21 05:50 Neut # (Auto) 5.3 10^3/uL (1.5-6.6) 11/21/21 05:50 Lymph # (Auto) 1.7 10^3/uL (1.5-3.5) 11/21/21 05:50 Karnes # (Auto) 0.8 10^3/uL (0.0-1.0) 11/21/21 05:50 Eos # (Auto) 0.5 10^3/uL (0.0-0.7) 11/21/21 05:50 Baso # (Auto) 0.1 10^3/uL (0.0-0.1) 11/21/21 05:50 Absolute Nucleated RBC 0.00 x10^3/uL 11/21/21 05:50 Nucleated RBC % 0.0 /100WBC 11/21/21 05:50 PT 11.7 secs (9.9-12.6) 11/06/21 21:20 INR 1.1 (0.8-1.2) 11/06/21 21:20 APTT 25.3 secs (24.9-33.3) 11/06/21 21:20 Sodium 134 mmol/L (135-145) L 11/21/21 05:50 Potassium 4.1 mmol/L (3.5-5.0) 11/21/21 05:50 Chloride 99 mmol/L (101-111) L 11/21/21 05:50 Carbon Dioxide 26 mmol/L (21-32) 11/21/21 05:50 Anion Gap 9.0 (6-13) 11/21/21 05:50 BUN 26 mg/dL (6-20) H 11/21/21 05:50 Creatinine 0.9 mg/dL (0.6-1.2) 11/21/21 05:50 Estimated GFR (MDRD) 83 (>89) L 11/21/21 05:50 Glucose 101 mg/dL (70-100) H 11/21/21 05:50 POC Whole Bld Glucose 145 mg/dL (70 - 100) H 11/23/21 11:39 Estimat Average Glucose 126 mg/dL (70-100) H 11/08/21 06:45 Hemoglobin A1c % 6.0 % (4.27-6.07) 11/08/21 06:45 Calcium 9.2 mg/dL (8.5-10.3) 11/21/21 05:50 Total Bilirubin 0.5 mg/dL (0.2-1.0) 11/06/21 21:20 AST 35 IU/L (10-42) 11/06/21 21:20 ALT 39 IU/L (10-60) 11/06/21 21:20 Alkaline Phosphatase 91 IU/L (42-121) 11/06/21 21:20 Total Protein 8.7 g/dL (6.7-8.2) H 11/06/21 21:20 Albumin 4.4 g/dL (3.2-5.5) 11/06/21 21:20 Globulin 4.3 g/dL (2.1-4.2) H 11/06/21 21:20 Albumin/Globulin Ratio 1.0 (1.0-2.2) 11/06/21 21:20 Lipase 38 U/L (22-51) 11/06/21 21:20 25-OH Vitamin D Total 15 ng/mL (30-100) L 11/10/21 11:14 Urine Color DARK YELLOW 11/06/21 21:12 Urine Clarity CLEAR (CLEAR) 11/06/21 21:12 Urine pH 6.0 PH (5.0-7.5) 11/06/21 21:12 Ur Specific [place] 1.020 (1.002-1.030) 11/06/21 21:12 Urine Protein TRACE mg/dL (NEGATIVE) 11/06/21 21:12 Urine Glucose (UA) 100 mg/dL (NEGATIVE) H 11/06/21 21:12 Urine Ketones NEGATIVE mg/dL (NEGATIVE) 11/06/21 21:12 Urine Occult Blood NEGATIVE (NEGATIVE) 11/06/21 21:12 Urine Nitrite NEGATIVE (NEGATIVE) 11/06/21 21:12 Urine Bilirubin NEGATIVE (NEGATIVE) 11/06/21 21:12 Urine Urobilinogen 0.2 (NORMAL) E.U./dL (NORMAL) 11/06/21 21:12 Ur Leukocyte Esterase NEGATIVE (NEGATIVE) 11/06/21 21:12 Ur Microscopic Review NOT INDICATED 11/06/21 21:12 Urine Culture Comments NOT INDICATED 11/06/21 21:12 Nasal Adenovirus (PCR) NOT DETECTED 11/11/21 11:30 Nasal B. parapertussis DNA (PCR) NOT DETECTED 11/11/21 11:30 Nasal Coronavir 229E PCR NOT DETECTED 11/11/21 11:30 Nasal Coronavir HKU1 PCR NOT DETECTED 11/11/21 11:30 Nasal Coronavir NL63 PCR NOT DETECTED 11/11/21 11:30 Nasal Coronavir OC43 PCR NOT DETECTED 11/11/21 11:30 Nasal Enterovir/Rhinovir PCR NOT DETECTED 11/11/21 11:30 Nasal Influenza B PCR NOT DETECTED 11/11/21 11:30 Nasal Influenza A PCR NOT DETECTED 11/11/21 11:30 Nasal Parainfluen 1 PCR NOT DETECTED 11/11/21 11:30 Nasal Parainfluen 2 PCR NOT DETECTED 11/11/21 11:30 Nasal Parainfluen 3 PCR NOT DETECTED 11/11/21 11:30 Nasal Parainfluen 4 PCR NOT DETECTED 11/11/21 11:30 Nasal RSV (PCR) NOT DETECTED 11/11/21 11:30 Nasal B.pertussis DNA PCR NOT DETECTED 11/11/21 11:30 Nasal C.pneumoniae (PCR) NOT DETECTED 11/11/21 11:30 Akhil Human Metapneumo PCR NOT DETECTED 11/11/21 11:30 Nasal M.pneumoniae (PCR) NOT DETECTED 11/11/21 11:30 Nasal SARS-CoV-2 (PCR) DETECTED A 11/11/21 11:30 Phenytoin 25.4 ug/mL 11/08/21 08:39 Lamotrigine 2.5 mcg/mL (4.0-18.0) L 11/08/21 08:39 Levetiracetam 17.6 mcg/mL 11/08/21 08:39 - Procedures Procedures: Procedures EXCISION OF ASCENDING COLON, ENDO (03/29/17) EXCISION OF DESCENDING COLON, ENDO (03/29/17) EXCISION OF RECTUM, ENDO (03/29/17) INSERTION OF INFUSION DEV INTO SUP VENA CAVA, PERC APPROACH (11/05/17) ABX Reporting Has patient been on IV antibiotics over the past 48 hours?: No Current Medications - Current Medications Current Medications: Active Medications Acetaminophen (Acetaminophen 325 Mg Tablet) 650 mg PO Q4HR PRN PRN Reason: Pain 1 to 4 Last Admin: 11/22/21 08:05 Dose: 650 mg Aspirin (Aspirin Ec 81 Mg Tablet) 81 mg PO DAILY [facility] Last Admin: 11/23/21 08:33 Dose: 81 mg Atorvastatin Calcium (Atorvastatin 10 Mg Tablet) 20 mg PO QPM [facility] Last Admin: 11/22/21 21:33 Dose: 20 mg Calcium Carbonate/Glycine (Calcium Carbonate Chew 500 Mg Tablet) 500 mg PO BID [facility] Last Admin: 11/23/21 08:33 Dose: 500 mg Docusate Sodium (Docusate Sodium 250 Mg Capsule) 250 - 500 mg PO DAILY [facility] Last Admin: 11/23/21 08:33 Dose: 250 mg Enoxaparin Sodium (Enoxaparin 40 Mg/0.4 Ml Syringe) 40 mg SUBQ DAILY [facility] Last Admin: 11/23/21 08:33 Dose: 40 mg Finasteride (Finasteride 5 Mg Tablet) 5 mg PO DAILY [facility] Last Admin: 11/23/21 08:33 Dose: 5 mg Insulin Aspart (Insulin Aspart 300 Unit/3 Ml Pen) 3 - 11 unit SUBQ 0800,1200,1700,2100 [facility]; Protocol Last Admin: 11/23/21 11:52 Dose: 3 unit Insulin Glargine (Insulin Glargine 300 Unit/3 Ml Pen) 10 unit SUBQ QPM [facility] Last Admin: 11/22/21 21:31 Dose: 10 unit Lamotrigine (Lamotrigine 25 Mg Tablet) 25 mg PO BID [facility] Last Admin: 11/23/21 08:34 Dose: 25 mg Lamotrigine (Lamotrigine 100 Mg Tablet) 200 mg PO BID [facility] Last Admin: 11/23/21 08:34 Dose: 200 mg Levetiracetam (Levetiracetam 250 Mg Tablet) 1,000 mg PO BID [facility] Last Admin: 11/23/21 09:11 Dose: 1,000 mg Lorazepam (Lorazepam 2 Mg/Ml Vial) 2 mg IVP Q2H PRN PRN Reason: Seizure Metoprolol Succinate (Metoprolol Succinate 25 Mg Tablet) 12.5 mg PO BID [facility] Last Admin: 11/23/21 08:35 Dose: 12.5 mg Multivitamins/Minerals (Multivitamin W/Minerals Tablet) 1 tab PO DAILYWM [facility] Last Admin: 11/23/21 08:33 Dose: 1 tab Ondansetron HCl (Ondansetron Odt 4 Mg Tablet) 4 mg TL Q6HR PRN PRN Reason: Nausea / Vomiting Ondansetron HCl (Ondansetron 4 Mg/2 Ml Vial) 4 mg IVP Q6HR PRN PRN Reason: Nausea / Vomiting Last Admin: 11/10/21 12:35 Dose: 4 mg Oxycodone HCl (Oxycodone 5 Mg Tablet) 10 mg PO Q4HR PRN PRN Reason: Pain 8 to 10 Last Admin: 11/22/21 08:07 Dose: 10 mg Phenytoin Sodium (Phenytoin Er 100 Mg Capsule) 300 mg PO DAILY [facility] Last Admin: 11/23/21 08:34 Dose: 300 mg Phenytoin Sodium (Phenytoin Er 100 Mg Capsule) 400 mg PO QPM [facility] Last Admin: 11/22/21 21:33 Dose: 400 mg Polyethylene Glycol (Polyethylene Glycol 3350 17 Gm Packet) 17 gm PO DAILY [facility] Last Admin: 11/23/21 08:34 Dose: 17 gm Senna (Senna 8.6 Mg Tablet) 8.6 - 17.2 mg PO DAILY [facility] Last Admin: 11/23/21 08:34 Dose: 8.6 mg Sodium Chloride (Sodium Chloride Flush 0.9% 10 Ml Syringe) 10 ml IVP PRN PRN PRN Reason: NEEDED PER PROVIDER ORDERS Last Admin: 11/08/21 16:44 Dose: 10 ml Sodium Chloride (Sodium Chloride Flush 0.9% 10 Ml Syringe) 10 ml IVP 0100,0900,1700 [facility] Last Admin: 11/23/21 08:35 Dose: Not Given Tamsulosin HCl (Tamsulosin 0.4 Mg Capsule) 0.4 mg PO DAILY [facility] Last Admin: 11/23/21 08:33 Dose: 0.4 mg Topiramate (Topiramate 25 Mg Tablet) 50 mg PO BID [facility] Last Admin: 11/23/21 08:34 Dose: 50 mg Phenytoin Sodium Extended [Dilantin] 300 mg PO DAILY 05/18/13 [id number] ER [Glucotrol Xl] 2.5 mg PO DAILY 12/19/17 Metoprolol Succinate 12.5 mg PO BID 09/04/18
[2021-11-23] MEDS ORDERED: LACTULOSE 10 GM /15 ML UDC PO ONE (18:48)
[2021-11-23] MEDS: ATORVASTATIN 10 MG TABLET PO SCH (21:34)
[2021-11-23] MEDS: INSULIN GLARGINE 300 UNIT/3 ML PEN SUBQ SCH (21:38)
[2021-11-24] MEDS: SODIUM CHLORIDE FLUSH 0.9% 10 ML SYRINGE IVP SCH ×3 (00:47→16:41)
[2021-11-24] MEDS: INSULIN ASPART 300 UNIT/3 ML PEN SUBQ SCH ×4 (10:26→20:22)
[2021-11-24] MEDS: SENNA 8.6 MG TABLET PO SCH (10:27)
[2021-11-24] MEDS: DOCUSATE SODIUM 250 MG CAPSULE PO SCH (10:27)
[2021-11-24] MEDS: ASPIRIN EC 81 MG TABLET PO SCH (10:27)
[2021-11-24] MEDS: levETIRAcetam 250 MG TABLET PO SCH ×2 (10:27→20:19)
[2021-11-24] MEDS: FINASTERIDE 5 MG TABLET PO SCH (10:27)
[2021-11-24] MEDS: TAMSULOSIN 0.4 MG CAPSULE PO SCH (10:27)
[2021-11-24] MEDS: lamoTRIgine 25 MG TABLET PO SCH ×2 (10:28→20:19)
[2021-11-24] MEDS: TOPIRAMATE 25 MG TABLET PO SCH ×2 (10:28→20:18)
[2021-11-24] MEDS: MULTIVITAMIN W/MINERALS TABLET PO SCH (10:28)
[2021-11-24] MEDS: PHENYTOIN ER 100 MG CAPSULE PO SCH ×2 (10:28→20:18)
[2021-11-24] MEDS: METOPROLOL SUCCINATE 25 MG TABLET PO SCH ×2 (10:28→20:18)
[2021-11-24] MEDS: CALCIUM CARBONATE CHEW 500 MG TABLET PO SCH ×2 (10:29→20:19)
[2021-11-24] MEDS: polyethylene glycoL 3350 17 GM PACKET PO SCH (10:29)
[2021-11-24] MEDS: ENOXAPARIN 40 MG/0.4 ML SYRINGE SUBQ SCH (10:29)
[2021-11-24] MEDS: lamoTRIgine 100 MG TABLET PO SCH ×2 (10:33→20:18)
--- NOTE | 2021-11-24 12:05 | PROVIDER PROGRESS NOTE ---
Assessment/Plan - Problem List (1) Closed right hip fracture Qualifiers: Encounter type: subsequent encounter Assessment/Plan: 11/24 pt is comfortable, enjoy his lunch, and ask when he can go to nurse facility. pt is pending for placement, clinical social work aide was consulted for that. continue pain control, lovenox for DVT prophylaxis, continue PT/OT 11/23 pt had right hip fracture repaired, then pt had PT/OT evaluation and treatment. per pt's family, pt is planned to [facility]. clinical social work aide was consulted for placement (2) COVID-19 Pt was newly diagnosed as Covid (+) on 11/11/2021 after he was tested in preparation for discharge. Patient was asymptomatic without fever, cough, stable O2 sat without respiratory distress, so pt was not treated for Covid 19. (3) Seizure disorder Assessment/Plan: Stable. No further seizures On Keppra 1000 mg p.o. twice daily and Lamictal 200 mg p.o. twice daily. Ph enytoin 300 mg p.o. daily and 400 mg p.o. every afternoon. Topamax 50 mg p.o. twice daily. Also PRN Ativan for acute seizure (4) History of coronary artery disease Assessment/Plan: Stable, On metoprolol succinate 12.5 mg p.o. twice daily. Aspirin 81 mg p.o. daily. Atorvastatin 20 mg p.o. every afternoon (5) Type 2 diabetes mellitus stable, continue carb controlled diet, glucose checks, sliding scale Insulin coverage, Lantus dosing, hypoglycemia protocol. 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 He is at his baseline. 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 (7) BPH Continue Flonax and Proscar - Current Meds Current Meds: Current Medications Generic Name Dose Route Start Last Admin Trade Name Freq PRN Reason Stop Dose Admin Acetaminophen 650 mg 11/06/21 21:18 11/22/21 08:05 Acetaminophen 325 Mg Tablet PO 650 mg Q4HR PRN Administration Pain 1 to 4 Aspirin 81 mg 11/08/21 09:00 11/24/21 10:27 Aspirin Ec 81 Mg Tablet PO 81 mg DAILY JAKE Administration Atorvastatin Calcium 20 mg 11/06/21 23:00 11/23/21 21:34 Atorvastatin 10 Mg Tablet PO 20 mg QPM JAKE Administration Calcium Carbonate/Glycine 500 mg 11/11/21 10:00 11/24/21 10:29 Calcium Carbonate Chew 500 Mg Tablet PO 500 mg BID JAKE Administration Docusate Sodium 250 - 500 mg 11/11/21 11:00 11/24/21 10:27 Docusate Sodium 250 Mg Capsule PO 250 mg DAILY JAKE Administration Enoxaparin Sodium 40 mg 11/08/21 13:00 11/24/21 10:29 Enoxaparin 40 Mg/0.4 Ml Syringe SUBQ 40 mg DAILY JAKE Administration Finasteride 5 mg 11/08/21 09:00 11/24/21 10:27 Finasteride 5 Mg Tablet PO 5 mg DAILY JAKE Administration Insulin Aspart 3 - 11 unit 11/09/21 12:00 11/24/21 11:56 Insulin Aspart 300 Unit/3 Ml Pen SUBQ 5 unit 0800,1200,1700,2100 [facility] Administration Protocol Insulin Glargine 10 unit 11/10/21 21:00 11/23/21 21:38 Insulin Glargine 300 Unit/3 Ml Pen SUBQ 10 unit QPM JAKE Administration Lamotrigine 25 mg 11/06/21 22:00 11/24/21 10:28 Lamotrigine 25 Mg Tablet PO 25 mg BID JAKE Administration Lamotrigine 200 mg 11/06/21 22:00 11/24/21 10:33 Lamotrigine 100 Mg Tablet PO 200 mg BID JAKE Administration Levetiracetam 1,000 mg 11/06/21 23:00 11/24/21 10:27 Levetiracetam 250 Mg Tablet PO 1,000 mg BID JAKE Administration Metoprolol Succinate 12.5 mg 11/06/21 22:00 11/24/21 10:28 Metoprolol Succinate 25 Mg Tablet PO 12.5 mg BID JAKE Administration Multivitamins/Minerals 1 tab 11/23/21 08:00 11/24/21 10:28 Multivitamin W/Minerals Tablet PO 1 tab DAILYWM JAKE Administration Ondansetron HCl 4 mg 11/06/21 21:18 11/10/21 12:35 Ondansetron 4 Mg/2 Ml Vial IVP 4 mg Q6HR PRN Administration Nausea / Vomiting Oxycodone HCl 10 mg 11/06/21 21:18 11/22/21 08:07 Oxycodone 5 Mg Tablet PO 10 mg Q4HR PRN Administration Pain 8 to 10 Phenytoin Sodium 300 mg 11/07/21 09:00 11/24/21 10:28 Phenytoin Er 100 Mg Capsule PO 300 mg DAILY JAKE Administration Phenytoin Sodium 400 mg 11/06/21 23:00 11/23/21 21:34 Phenytoin Er 100 Mg Capsule PO 400 mg QPM JAKE Administration Polyethylene Glycol 17 gm 11/09/21 10:00 11/24/21 10:29 Polyethylene Glycol 3350 17 Gm Packet PO 17 gm DAILY JAKE Administration Senna 8.6 - 17.2 mg 11/11/21 11:00 11/24/21 10:27 Senna 8.6 Mg Tablet PO 8.6 mg DAILY JAKE Administration Sodium Chloride 10 ml 11/06/21 21:18 11/08/21 16:44 Sodium Chloride Flush 0.9% 10 Ml Syringe IVP 10 ml PRN PRN Administration NEEDED PER PROVIDER ORDERS Sodium Chloride 10 ml 11/07/21 01:00 11/24/21 10:30 Sodium Chloride Flush 0.9% 10 Ml Syringe IVP Not Given 0100,0900,1700 [facility] Tamsulosin HCl 0.4 mg 11/08/21 09:00 11/24/21 10:27 Tamsulosin 0.4 Mg Capsule PO 0.4 mg DAILY JAKE Administration Topiramate 50 mg 11/06/21 23:00 11/24/21 10:28 Topiramate 25 Mg Tablet PO 50 mg BID JAKE Administration - Lab Result Fish Bone Diagrams: 11/21/21 05:50 11/21/21 05:50 Subjective - Subjective Patient Reports: Resting Comfortably Objective Vital Signs: Vital Signs - 24 hr 11/23/21 11/23/21 11/23/21 13:20 15:52 21:36 Temperature 36.5 C 36.6 C Heart Rate [ 68 82 80 Brachial] Respiratory 18 20 Rate Blood Pressure 127/79 107/62 101/61 [Right Brachial artery] O2 Saturation 98 97 11/24/21 11/24/21 11/24/21 00:23 08:02 11:49 Temperature 36.5 C 36.5 C 36.5 C Heart Rate [ 73 70 71 Brachial] Respiratory 18 18 21 Rate Blood Pressure 111/68 114/65 113/59 L [Right Brachial artery] O2 Saturation 97 98 95 Oxygen O2 Source [With Activity] Room air O2 Source Room air I&O (Last 24 Hrs): Intake and Output Totals x24h 11/22/21 11/23/21 11/24/21 23:59 23:59 23:59 Intake Total 1640 1106 200 Output Total 3 250 Balance 1640 1103 -50 General: Alert, No acute distress HEENT: Atraumatic Neck: Supple Lymphatic: no adenopathy Neuro: Alert, Non Focal Cardiovascular: Regular rate, Normal S1, Normal S2 Respiratory: Chest non-tender, No respiratory distress Abdomen: Normal bowel sounds, Soft Extremities: Normal pulses - Results Results: Laboratory Results WBC 8.4 x10^3/uL (4.8-10.8) 11/21/21 05:50 RBC 4.06 10^6/uL (4.70-6.10) L 11/21/21 05:50 Hgb 12.1 g/dL (14.0-18.0) L 11/21/21 05:50 Hct 37.4 % (42.0-52.0) L 11/21/21 05:50 MCV 92.1 fL (80.0-94.0) 11/21/21 05:50 MCH 29.8 pg (27.0-31.0) 11/21/21 05:50 MCHC 32.4 g/dL (32.0-36.0) 11/21/21 05:50 RDW 13.7 % (12.0-15.0) 11/21/21 05:50 Plt Count 685 10^3/uL (130-450) H 11/21/21 05:50 MPV 8.7 fL (7.4-11.4) 11/21/21 05:50 Neut # (Auto) 5.3 10^3/uL (1.5-6.6) 11/21/21 05:50 Lymph # (Auto) 1.7 10^3/uL (1.5-3.5) 11/21/21 05:50 [place] # (Auto) 0.8 10^3/uL (0.0-1.0) 11/21/21 05:50 Eos # (Auto) 0.5 10^3/uL (0.0-0.7) 11/21/21 05:50 Baso # (Auto) 0.1 10^3/uL (0.0-0.1) 11/21/21 05:50 Absolute Nucleated RBC 0.00 x10^3/uL 11/21/21 05:50 Nucleated RBC % 0.0 /100WBC 11/21/21 05:50 PT 11.7 secs (9.9-12.6) 11/06/21 21:20 INR 1.1 (0.8-1.2) 11/06/21 21:20 APTT 25.3 secs (24.9-33.3) 11/06/21 21:20 Sodium 134 mmol/L (135-145) L 11/21/21 05:50 Potassium 4.1 mmol/L (3.5-5.0) 11/21/21 05:50 Chloride 99 mmol/L (101-111) L 11/21/21 05:50 Carbon Dioxide 26 mmol/L (21-32) 11/21/21 05:50 Anion Gap 9.0 (6-13) 11/21/21 05:50 BUN 26 mg/dL (6-20) H 11/21/21 05:50 Creatinine 0.9 mg/dL (0.6-1.2) 11/21/21 05:50 Estimated GFR (MDRD) 83 (>89) L 11/21/21 05:50 Glucose 101 mg/dL (70-100) H 11/21/21 05:50 POC Whole Bld Glucose 205 mg/dL (70 - 100) H 11/24/21 11:40 Estimat Average Glucose 126 mg/dL (70-100) H 11/08/21 06:45 Hemoglobin A1c % 6.0 % (4.27-6.07) 11/08/21 06:45 Calcium 9.2 mg/dL (8.5-10.3) 11/21/21 05:50 Total Bilirubin 0.5 mg/dL (0.2-1.0) 11/06/21 21:20 AST 35 IU/L (10-42) 11/06/21 21:20 ALT 39 IU/L (10-60) 11/06/21 21:20 Alkaline Phosphatase 91 IU/L (42-121) 11/06/21 21:20 Total Protein 8.7 g/dL (6.7-8.2) H 11/06/21 21:20 Albumin 4.4 g/dL (3.2-5.5) 11/06/21 21:20 Globulin 4.3 g/dL (2.1-4.2) H 11/06/21 21:20 Albumin/Globulin Ratio 1.0 (1.0-2.2) 11/06/21 21:20 Lipase 38 U/L (22-51) 11/06/21 21:20 25-OH Vitamin D Total 15 ng/mL (30-100) L 11/10/21 11:14 Urine Color DARK YELLOW 11/06/21 21:12 Urine Clarity CLEAR (CLEAR) 11/06/21 21:12 Urine pH 6.0 PH (5.0-7.5) 11/06/21 21:12 Ur Specific [place] 1.020 (1.002-1.030) 11/06/21 21:12 Urine Protein TRACE mg/dL (NEGATIVE) 11/06/21 21:12 Urine Glucose (UA) 100 mg/dL (NEGATIVE) H 11/06/21 21:12 Urine Ketones NEGATIVE mg/dL (NEGATIVE) 11/06/21 21:12 Urine Occult Blood NEGATIVE (NEGATIVE) 11/06/21 21:12 Urine Nitrite NEGATIVE (NEGATIVE) 11/06/21 21:12 Urine Bilirubin NEGATIVE (NEGATIVE) 11/06/21 21:12 Urine Urobilinogen 0.2 (NORMAL) E.U./dL (NORMAL) 11/06/21 21:12 Ur Leukocyte Esterase NEGATIVE (NEGATIVE) 11/06/21 21:12 Ur Microscopic Review NOT INDICATED 11/06/21 21:12 Urine Culture Comments NOT INDICATED 11/06/21 21:12 Nasal Adenovirus (PCR) NOT DETECTED 11/11/21 11:30 Nasal B. parapertussis DNA (PCR) NOT DETECTED 11/11/21 11:30 Nasal Coronavir 229E PCR NOT DETECTED 11/11/21 11:30 Nasal Coronavir HKU1 PCR NOT DETECTED 11/11/21 11:30 Nasal Coronavir NL63 PCR NOT DETECTED 11/11/21 11:30 Nasal Coronavir OC43 PCR NOT DETECTED 11/11/21 11:30 Nasal Enterovir/Rhinovir PCR NOT DETECTED 11/11/21 11:30 Nasal Influenza B PCR NOT DETECTED 11/11/21 11:30 Nasal Influenza A PCR NOT DETECTED 11/11/21 11:30 Nasal Parainfluen 1 PCR NOT DETECTED 11/11/21 11:30 Nasal Parainfluen 2 PCR NOT DETECTED 11/11/21 11:30 Nasal Parainfluen 3 PCR NOT DETECTED 11/11/21 11:30 Nasal Parainfluen 4 PCR NOT DETECTED 11/11/21 11:30 Nasal RSV (PCR) NOT DETECTED 11/11/21 11:30 Nasal B.pertussis DNA PCR NOT DETECTED 11/11/21 11:30 Nasal C.pneumoniae (PCR) NOT DETECTED 11/11/21 11:30 Akhil Human Metapneumo PCR NOT DETECTED 11/11/21 11:30 Nasal M.pneumoniae (PCR) NOT DETECTED 11/11/21 11:30 Nasal SARS-CoV-2 (PCR) DETECTED A 11/11/21 11:30 Phenytoin 25.4 ug/mL 11/08/21 08:39 Lamotrigine 2.5 mcg/mL (4.0-18.0) L 11/08/21 08:39 Levetiracetam 17.6 mcg/mL 11/08/21 08:39 - Procedures Procedures: Procedures EXCISION OF ASCENDING COLON, ENDO (03/29/17) EXCISION OF DESCENDING COLON, ENDO (03/29/17) EXCISION OF RECTUM, ENDO (03/29/17) INSERTION OF INFUSION DEV INTO SUP VENA CAVA, PERC APPROACH (11/05/17) ABX Reporting Has patient been on IV antibiotics over the past 48 hours?: No Current Medications - Current Medications Current Medications: Active Medications Acetaminophen (Acetaminophen 325 Mg Tablet) 650 mg PO Q4HR PRN PRN Reason: Pain 1 to 4 Last Admin: 11/22/21 08:05 Dose: 650 mg Aspirin (Aspirin Ec 81 Mg Tablet) 81 mg PO DAILY [facility] Last Admin: 11/24/21 10:27 Dose: 81 mg Atorvastatin Calcium (Atorvastatin 10 Mg Tablet) 20 mg PO QPM [facility] Last Admin: 11/23/21 21:34 Dose: 20 mg Calcium Carbonate/Glycine (Calcium Carbonate Chew 500 Mg Tablet) 500 mg PO BID [facility] Last Admin: 11/24/21 10:29 Dose: 500 mg Docusate Sodium (Docusate Sodium 250 Mg Capsule) 250 - 500 mg PO DAILY [facility] Last Admin: 11/24/21 10:27 Dose: 250 mg Enoxaparin Sodium (Enoxaparin 40 Mg/0.4 Ml Syringe) 40 mg SUBQ DAILY [facility] Last Admin: 11/24/21 10:29 Dose: 40 mg Finasteride (Finasteride 5 Mg Tablet) 5 mg PO DAILY [facility] Last Admin: 11/24/21 10:27 Dose: 5 mg Insulin Aspart (Insulin Aspart 300 Unit/3 Ml Pen) 3 - 11 unit SUBQ 0800,1200,1700,2100 [facility]; Protocol Last Admin: 11/24/21 11:56 Dose: 5 unit Insulin Glargine (Insulin Glargine 300 Unit/3 Ml Pen) 10 unit SUBQ QPM [facility] Last Admin: 11/23/21 21:38 Dose: 10 unit Lamotrigine (Lamotrigine 25 Mg Tablet) 25 mg PO BID [facility] Last Admin: 11/24/21 10:28 Dose: 25 mg Lamotrigine (Lamotrigine 100 Mg Tablet) 200 mg PO BID [facility] Last Admin: 11/24/21 10:33 Dose: 200 mg Levetiracetam (Levetiracetam 250 Mg Tablet) 1,000 mg PO BID [facility] Last Admin: 11/24/21 10:27 Dose: 1,000 mg Lorazepam (Lorazepam 2 Mg/Ml Vial) 2 mg IVP Q2H PRN PRN Reason: Seizure Metoprolol Succinate (Metoprolol Succinate 25 Mg Tablet) 12.5 mg PO BID [facility] Last Admin: 11/24/21 10:28 Dose: 12.5 mg Multivitamins/Minerals (Multivitamin W/Minerals Tablet) 1 tab PO DAILYWM [facility] Last Admin: 11/24/21 10:28 Dose: 1 tab Ondansetron HCl (Ondansetron Odt 4 Mg Tablet) 4 mg TL Q6HR PRN PRN Reason: Nausea / Vomiting Ondansetron HCl (Ondansetron 4 Mg/2 Ml Vial) 4 mg IVP Q6HR PRN PRN Reason: Nausea / Vomiting Last Admin: 11/10/21 12:35 Dose: 4 mg Oxycodone HCl (Oxycodone 5 Mg Tablet) 10 mg PO Q4HR PRN PRN Reason: Pain 8 to 10 Last Admin: 11/22/21 08:07 Dose: 10 mg Phenytoin Sodium (Phenytoin Er 100 Mg Capsule) 300 mg PO DAILY [facility] Last Admin: 11/24/21 10:28 Dose: 300 mg Phenytoin Sodium (Phenytoin Er 100 Mg Capsule) 400 mg PO QPM [facility] Last Admin: 11/23/21 21:34 Dose: 400 mg Polyethylene Glycol (Polyethylene Glycol 3350 17 Gm Packet) 17 gm PO DAILY [facility] Last Admin: 11/24/21 10:29 Dose: 17 gm Senna (Senna 8.6 Mg Tablet) 8.6 - 17.2 mg PO DAILY [facility] Last Admin: 11/24/21 10:27 Dose: 8.6 mg Sodium Chloride (Sodium Chloride Flush 0.9% 10 Ml Syringe) 10 ml IVP PRN PRN PRN Reason: NEEDED PER PROVIDER ORDERS Last Admin: 11/08/21 16:44 Dose: 10 ml Sodium Chloride (Sodium Chloride Flush 0.9% 10 Ml Syringe) 10 ml IVP 0 100,0900,1700 [facility] Last Admin: 11/24/21 10:30 Dose: Not Given Tamsulosin HCl (Tamsulosin 0.4 Mg Capsule) 0.4 mg PO DAILY [facility] Last Admin: 11/24/21 10:27 Dose: 0.4 mg Topiramate (Topiramate 25 Mg Tablet) 50 mg PO BID [facility] Last Admin: 11/24/21 10:28 Dose: 50 mg Phenytoin Sodium Extended [Dilantin] 300 mg PO DAILY 05/18/13 [id number] ER [Glucotrol Xl] 2.5 mg PO DAILY 12/19/17 Metoprolol Succinate 12.5 mg PO BID 09/04/18
[2021-11-24] MEDS: ONDANSETRON 4 MG/2 ML VIAL IVP PRN ×2 (13:02→22:43)
[2021-11-24] MEDS: SODIUM CHLORIDE FLUSH 0.9% 10 ML SYRINGE IVP PRN (13:03)
[2021-11-24] MEDS: ONDANSETRON ODT 4 MG TABLET TL PRN (13:08)
[2021-11-24 13:40] LABS: BASOPHILS # (AUTO) 0.1 10^3/uL (0.0-0.1); BASOPHILS % (AUTO) 0.9 %; EOSINOPHILS # (AUTO) 0.8 10^3/uL (0.0-0.7); EOSINOPHILS % (AUTO) 11.6 %; HCT - HEMATOCRIT 37.6 % (42.0-52.0); HGB - HEMOGLOBIN 11.9 g/dL (14.0-18.0); LYMPHOCYTES # (AUTO) 1.9 10^3/uL (1.5-3.5); LYMPHOCYTES % (AUTO) 29.3 %; MEAN CORPUSCULAR HEMOGLOBIN 29.3 pg (27.0-31.0); MEAN CORPUSCULAR HGB CONC 31.6 g/dL (32.0-36.0); MEAN CORPUSCULAR VOLUME 92.6 fL (80.0-94.0); MEAN PLATELET VOLUME 8.4 fL (7.4-11.4); MONOCYTES # (AUTO) 0.7 10^3/uL (0.0-1.0); MONOCYTES % (AUTO) 10.6 %; NEUTROPHILS # (AUTO) 3.1 10^3/uL (1.5-6.6); NEUTROPHILS % (AUTO) 47.3 %; PLT - PLATELET COUNT 635 10^3/uL (130-450); RED BLOOD COUNT 4.06 10^6/uL (4.70-6.10); WHITE BLOOD COUNT 6.6 x10^3/uL (4.8-10.8)
[2021-11-24 13:48] LABS: CALCIUM 8.5 mg/dL (8.5-10.3); CREATININE 1.1 mg/dL (0.6-1.2); PHENYTOIN (DILANTIN) 28.5 ug/mL; POTASSIUM 3.9 mmol/L (3.5-5.0)
[2021-11-24] MEDS ORDERED: SODIUM CHLORIDE 0.9% 1,000 ML IV SCH (14:00)
--- NOTE | 2021-11-24 14:52 | XRAY Report ---
PROCEDURE: Chest 1 View X-Ray INDICATIONS: SOB TECHNIQUE: One view of the chest was acquired. COMPARISON: November 06, 2021 FINDINGS: SUPPORT DEVICES: None. LUNGS/PLEURA: Mild interstitial prominence. No focal consolidation, pleural effusion or space-occupyi ng pneumothorax. MEDIASTINUM: The cardiomediastinal silhouette is within normal limits. BONES/SOFT TISSUES: No acute abnormality. IMPRESSION: 1.Mild interstitial prominence, which may reflect technique versus pulmonary edema. Reviewed by: Feliciano Catalan MD on 11/24/2021 2:47 PM PST Approved by: Feliciano Catalan MD on 11/24/2021 2:47 PM PST Station ID: [id number]
[2021-11-24] MEDS ORDERED: BISACODYL 10 MG SUPP PR ONE (17:15)
[2021-11-24] MEDS: ATORVASTATIN 10 MG TABLET PO SCH (20:19)
[2021-11-24] MEDS: INSULIN GLARGINE 300 UNIT/3 ML PEN SUBQ SCH (20:22)
[2021-11-25] MEDS: SODIUM CHLORIDE FLUSH 0.9% 10 ML SYRINGE IVP SCH ×3 (02:04→17:26)
[2021-11-25 06:22] LABS: BASOPHILS # (AUTO) 0.1 10^3/uL (0.0-0.1); BASOPHILS % (AUTO) 1.1 %; EOSINOPHILS # (AUTO) 0.6 10^3/uL (0.0-0.7); EOSINOPHILS % (AUTO) 9.6 %; HCT - HEMATOCRIT 39.6 % (42.0-52.0); HGB - HEMOGLOBIN 12.7 g/dL (14.0-18.0); LYMPHOCYTES # (AUTO) 1.6 10^3/uL (1.5-3.5); LYMPHOCYTES % (AUTO) 25.5 %; MEAN CORPUSCULAR HEMOGLOBIN 29.7 pg (27.0-31.0); MEAN CORPUSCULAR HGB CONC 32.1 g/dL (32.0-36.0); MEAN CORPUSCULAR VOLUME 92.5 fL (80.0-94.0); MEAN PLATELET VOLUME 8.8 fL (7.4-11.4); MONOCYTES # (AUTO) 0.6 10^3/uL (0.0-1.0); NEUTROPHILS # (AUTO) 3.4 10^3/uL (1.5-6.6); NEUTROPHILS % (AUTO) 53.5 %; PLT - PLATELET COUNT 638 10^3/uL (130-450); RED BLOOD COUNT 4.28 10^6/uL (4.70-6.10); RED CELL DISTRIBUTION WIDTH 13.7 % (12.0-15.0); WHITE BLOOD COUNT 6.3 x10^3/uL (4.8-10.8)
[2021-11-25 06:35] LABS: CALCIUM 8.7 mg/dL (8.5-10.3); CREATININE 0.8 mg/dL (0.6-1.2)
[2021-11-25] MEDS: INSULIN ASPART 300 UNIT/3 ML PEN SUBQ SCH ×4 (08:30→21:15)
[2021-11-25] MEDS: ENOXAPARIN 40 MG/0.4 ML SYRINGE SUBQ SCH (08:33)
[2021-11-25] MEDS: levETIRAcetam 250 MG TABLET PO SCH ×2 (08:33→21:14)
[2021-11-25] MEDS: ASPIRIN EC 81 MG TABLET PO SCH (08:33)
[2021-11-25] MEDS: TOPIRAMATE 25 MG TABLET PO SCH ×2 (08:34→21:14)
[2021-11-25] MEDS: DOCUSATE SODIUM 250 MG CAPSULE PO SCH (10:10)
[2021-11-25] MEDS: lamoTRIgine 25 MG TABLET PO SCH ×2 (10:11→21:14)
[2021-11-25] MEDS: lamoTRIgine 100 MG TABLET PO SCH ×2 (10:11→21:14)
[2021-11-25] MEDS: SENNA 8.6 MG TABLET PO SCH (10:12)
[2021-11-25] MEDS: polyethylene glycoL 3350 17 GM PACKET PO SCH (10:12)
[2021-11-25] MEDS: METOPROLOL SUCCINATE 25 MG TABLET PO SCH ×2 (10:12→21:14)
[2021-11-25] MEDS: PHENYTOIN ER 100 MG CAPSULE PO SCH ×2 (10:15→21:14)
[2021-11-25] MEDS: FINASTERIDE 5 MG TABLET PO SCH (10:54)
[2021-11-25] MEDS: MULTIVITAMIN W/MINERALS TABLET PO SCH (10:55)
[2021-11-25] MEDS: CALCIUM CARBONATE CHEW 500 MG TABLET PO SCH ×2 (10:55→19:52)
[2021-11-25] MEDS: TAMSULOSIN 0.4 MG CAPSULE PO SCH (10:55)
--- NOTE | 2021-11-25 15:23 | PROVIDER PROGRESS NOTE ---
Assessment/Plan - Problem List (1) Closed right hip fracture Qualifiers: Encounter type: subsequent encounter Assessment/Plan: 11/25 pt is comfortable, eat his whole breakfast. pt is pending for [facility] care placement, nursing home social worker was consulted for that 11/24 pt is comfortable, enjoy his lunch, and ask when he can go to nurse facility. pt is pending for placement, nursing home social worker was consulted for that. continue pain control, lovenox for DVT prophylaxis, continue PT/OT 11/23 pt had right hip fracture repaired, then pt had PT/OT evaluation and treatment. per pt's family, pt is planned to d/c to [facility]. nursing home social worker was consulted for placement (2) COVID-19 Pt was newly diagnosed as Covid (+) on 11/11/2021 after he was tested in prep aration for discharge. Patient was asymptomatic without fever, cough, stable O2 sat without respiratory distress, so pt was not treated for Covid 19. (3) Seizure disorder Assessment/Plan: Stable. No further seizures On Keppra 1000 mg p.o. twice daily and Lamictal 200 mg p.o. twice daily. Phenytoin 300 mg p.o. daily and 400 mg p.o. every afternoon. Topamax 50 mg p.o. twice daily. Also PRN Ativan for acute seizure (4) History of coronary artery disease Assessment/Plan: Stable, On metoprolol succinate 12.5 mg p.o. twice daily. Aspirin 81 mg p.o. daily. Atorvastatin 20 mg p.o. every afternoon (5) Type 2 diabetes mellitus stable, continue carb controlled diet, glucose checks, sliding scale Insulin coverage, Lantus dosing, hypoglycemia protocol. 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 He is at his baseline. 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 (7) BPH Continue Flonax and Proscar - Current Meds Current Meds: Current Medications Generic Name Dose Route Start Last Admin Trade Name Freq PRN Reason Stop Dose Admin Acetaminophen 650 mg 11/06/21 21:18 11/22/21 08:05 Acetaminophen 325 Mg Tablet PO 650 mg Q4HR PRN Administration Pain 1 to 4 Atorvastatin Calcium 20 mg 11/06/21 23:00 11/24/21 20:19 Atorvastatin 10 Mg Tablet PO 20 mg QPM JAKE Administration Enoxaparin Sodium 40 mg 11/08/21 13:00 11/25/21 08:33 Enoxaparin 40 Mg/0.4 Ml Syringe SUBQ 40 mg DAILY JAKE Administration Insulin Aspart 3 - 11 unit 11/09/21 12:00 11/25/21 11:53 Insulin Aspart 300 Unit/3 Ml Pen SUBQ 5 unit 0800,1200,1700,2100 [facility] Administration Protocol Insulin Glargine 10 unit 11/10/21 21:00 11/24/21 20:22 Insulin Glargine 300 Unit/3 Ml Pen SUBQ 10 unit QPM JAKE Administration Lamotrigine 25 mg 11/06/21 22:00 11/25/21 10:11 Lamotrigine 25 Mg Tablet PO 25 mg BID JAKE Administration Lamotrigine 200 mg 11/06/21 22:00 11/25/21 10:11 Lamotrigine 100 Mg Tablet PO 200 mg BID JAKE Administration Levetiracetam 1,000 mg 11/06/21 23:00 11/25/21 08:33 Levetiracetam 250 Mg Tablet PO 1,000 mg BID JAKE Administration Metoprolol Succinate 12.5 mg 11/06/21 22:00 11/25/21 10:12 Metoprolol Succinate 25 Mg Tablet PO 12.5 mg BID JAKE Administration Multivitamins/Minerals 1 tab 11/25/21 12:00 11/25/21 10:55 Multivitamin W/Minerals Tablet PO 1 tab 1200 JAKE Administration Ondansetron HCl 4 mg 11/06/21 21:18 11/24/21 13:08 Ondansetron Odt 4 Mg Tablet TL 4 mg Q6HR PRN Administration Nausea / Vomiting Ondansetron HCl 4 mg 11/06/21 21:18 11/24/21 22:43 Ondansetron 4 Mg/2 Ml Vial IVP 4 mg Q6HR PRN Administration Nausea / Vomiting Oxycodone HCl 10 mg 11/06/21 21:18 11/22/21 08:07 Oxycodone 5 Mg Tablet PO 10 mg Q4HR PRN Administration Pain 8 to 10 Phenytoin Sodium 300 mg 11/07/21 09:00 11/25/21 10:15 Phenytoin Er 100 Mg Capsule PO 300 mg DAILY JAKE Administration Phenytoin Sodium 400 mg 11/06/21 23:00 11/24/21 20:18 Phenytoin Er 100 Mg Capsule PO 400 mg QPM JAKE Administration Sodium Chloride 10 ml 11/06/21 21:18 11/08/21 16:44 Sodium Chloride Flush 0.9% 10 Ml Syringe IVP 10 ml PRN PRN Administration NEEDED PER PROVIDER ORDERS Sodium Chloride 10 ml 11/07/21 01:00 11/25/21 10:56 Sodium Chloride Flush 0.9% 10 Ml Syringe IVP 10 ml 0100,0900,1700 JAKE Administration Topiramate 50 mg 11/06/21 23:00 11/25/21 08:34 Topiramate 25 Mg Tablet PO 50 mg BID JAKE Administration - Lab Result Fish Bone Diagrams: 11/25/21 05:45 11/25/21 05:45 - Additional Planning My Orders: My Active Orders 11/25/21 19:00 Calcium Carbonate [Tums] 500 mg PO 1200,1900 11/26/21 05:00 BMP - BASIC METABOLIC PANEL [CHEM] DAILYLAB CBC - COMP BLD CT W/AUTO DIFF [HEME] DAILYLAB 11/26/21 12:00 Aspirin EC [Ecotrin] 81 mg PO 1200 Docusate Sodium 250Mg Capsule [Colace 250Mg Capsule] 250 - 500 mg PO 1200 Finasteride [Proscar] 5 mg PO 1200 Senna [Senokot] 8.6 - 17.2 mg PO 1200 Tamsulosin [Flomax] 0.4 mg PO 1200 polyethylene glycoL 3350 [Miralax] 17 gm PO 1200 11/27/21 05:00 BMP - BASIC METABOLIC PANEL [CHEM] DAILYLAB CBC - COMP BLD CT W/AUTO DIFF [HEME] DAILYLAB 11/28/21 05:00 BMP - BASIC METABOLIC PANEL [CHEM] DAILYLAB CBC - COMP BLD CT W/AUTO DIFF [HEME] DAILYLAB 11/29/21 05:00 BMP - BASIC METABOLIC PANEL [CHEM] DAILYLAB CBC - COMP BLD CT W/AUTO DIFF [HEME] DAILYLAB Subjective - Subjective Patient Reports: Resting Comfortably Objective Vital Signs: Vital Signs - 24 hr 11/24/21 11/24/21 11/25/21 17:12 20:16 01:13 Temperature 36.4 C L 36.4 C L Heart Rate [ 78 78 72 Brachial] Respiratory 19 18 Rate Blood Pressure 102/58 L 102/56 L [Left Brachial artery] Blood Pressure 119/74 [Right Brachial artery] O2 Saturation 96 100 11/25/21 06:41 Temperature 36.5 C Heart Rate [ 68 Brachial] Respiratory 18 Rate Blood Pressure [Left Brachial artery] Blood Pressure 105/65 [Right Brachial artery] O2 Saturation 98 Oxygen O2 Source [With Activity] Room air O2 Source Room air I&O (Last 24 Hrs): Intake and Output Totals x24h 11/23/21 11/24/21 11/25/21 23:59 23:59 23:59 Intake Total 1106 1140 1340 Output Total 3 430 Balance 8085 252 0320 General: Alert, No acute distress HEENT: Atraumatic Neck: Supple Lymphatic: no adenopathy Neuro: Alert, Non Focal Cardiovascular: Regular rate, Normal S1, Normal S2 Respiratory: Chest non-tender, No respiratory distress Abdomen: Normal bowel sounds, Soft Extremities: Normal pulses - Results Results: Laboratory Results WBC 6.3 x10^3/uL (4.8-10.8) 11/25/21 05:45 RBC 4.28 10^6/uL (4.70-6.10) L 11/25/21 05:45 Hgb 12.7 g/dL (14.0-18.0) L 11/25/21 05:45 Hct 39.6 % (42.0-52.0) L 11/25/21 05:45 MCV 92.5 fL (80.0-94.0) 11/25/21 05:45 MCH 29.7 pg (27.0-31.0) 11/25/21 05:45 MCHC 32.1 g/dL (32.0-36.0) 11/25/21 05:45 RDW 13.7 % (12.0-15.0) 11/25/21 05:45 Plt Count 638 10^3/uL (130-450) H 11/25/21 05:45 MPV 8.8 fL (7.4-11.4) 11/25/21 05:45 Neut # (Auto) 3.4 10^3/uL (1.5-6.6) 11/25/21 05:45 Lymph # (Auto) 1.6 10^3/uL (1.5-3.5) 11/25/21 05:45 [place] # (Auto) 0.6 10^3/uL (0.0-1.0) 11/25/21 05:45 Eos # (Auto) 0.6 10^3/uL (0.0-0.7) 11/25/21 05:45 Baso # (Auto) 0.1 10^3/uL (0.0-0.1) 11/25/21 05:45 Absolute Nucleated RBC 0.00 x10^3/uL 11/25/21 05:45 Nucleated RBC % 0.0 /100WBC 11/25/21 05:45 PT 11.7 secs (9.9-12.6) 11/06/21 21:20 INR 1.1 (0.8-1.2) 11/06/21 21:20 APTT 25.3 secs (24.9-33.3) 11/06/21 21:20 Sodium 136 mmol/L (135-145) 11/25/21 05:45 Potassium 4.0 mmol/L (3.5-5.0) 11/25/21 05:45 Chloride 103 mmol/L (101-111) 11/25/21 05:45 Carbon Dioxide 26 mmol/L (21-32) 11/25/21 05:45 Anion Gap 7.0 (6-13) 11/25/21 05:45 BUN 21 mg/dL (6-20) H 11/25/21 05:45 Creatinine 0.8 mg/dL (0.6-1.2) 11/25/21 05:45 Estimated GFR (MDRD) 95 (>89) 11/25/21 05:45 Glucose 100 mg/dL (70-100) 11/25/21 05:45 POC Whole Bld Glucose 207 mg/dL (70 - 100) H 11/25/21 11:35 Estimat Average Glucose 126 mg/dL (70-100) H 11/08/21 06:45 Hemoglobin A1c % 6.0 % (4.27-6.07) 11/08/21 06:45 Calcium 8.7 mg/dL (8.5-10.3) 11/25/21 05:45 Total Bilirubin 0.5 mg/dL (0.2-1.0) 11/06/21 21:20 AST 35 IU/L (10-42) 11/06/21 21:20 ALT 39 IU/L (10-60) 11/06/21 21:20 Alkaline Phosphatase 91 IU/L (42-121) 11/06/21 21:20 Total Protein 8.7 g/dL (6.7-8.2) H 11/06/21 21:20 Albumin 4.4 g/dL (3.2-5.5) 11/06/21 21:20 Globulin 4.3 g/dL (2.1-4.2) H 11/06/21 21:20 Albumin/Globulin Ratio 1.0 (1.0-2.2) 11/06/21 21:20 Lipase 38 U/L (22-51) 11/06/21 21:20 25-OH Vitamin D Total 15 ng/mL (30-100) L 11/10/21 11:14 Urine Color DARK YELLOW 11/06/21 21:12 Urine Clarity CLEAR (CLEAR) 11/06/21 21:12 Urine pH 6.0 PH (5.0-7.5) 11/06/21 21:12 Ur Specific [place] 1.020 (1.002-1.030) 11/06/21 21:12 Urine Protein TRACE mg/dL (NEGATIVE) 11/06/21 21:12 Urine Glucose (UA) 100 mg/dL (NEGATIVE) H 11/06/21 21:12 Urine Ketones NEGATIVE mg/dL (NEGATIVE) 11/06/21 21:12 Urine Occult Blood NEGATIVE (NEGATIVE) 11/06/21 21:12 Urine Nitrite NEGATIVE (NEGATIVE) 11/06/21 21:12 Urine Bilirubin NEGATIVE (NEGATIVE) 11/06/21 21:12 Urine Urobilinogen 0.2 (NORMAL) E.U./dL (NORMAL) 11/06/21 21:12 Ur Leukocyte Esterase NEGATIVE (NEGATIVE) 11/06/21 21:12 Ur Microscopic Review NOT INDICATED 11/06/21 21:12 Urine Culture Comments NOT INDICATED 11/06/21 21:12 Nasal Adenovirus (PCR) NOT DETECTED 11/11/21 11:30 Nasal B. parapertussis DNA (PCR) NOT DETECTED 11/11/21 11:30 Nasal Coronavir 229E PCR NOT DETECTED 11/11/21 11:30 Nasal Coronavir HKU1 PCR NOT DETECTED 11/11/21 11:30 Nasal Coronavir NL63 PCR NOT DETECTED 11/11/21 11:30 Nasal Coronavir OC43 PCR NOT DETECTED 11/11/21 11:30 Nasal Enterovir/Rhinovir PCR NOT DETECTED 11/11/21 11:30 Nasal Influenza B PCR NOT DETECTED 11/11/21 11:30 Nasal Influenza A PCR NOT DETECTED 11/11/21 11:30 Nasal Parainfluen 1 PCR NOT DETECTED 11/11/21 11:30 Nasal Parainfluen 2 PCR NOT DETECTED 11/11/21 11:30 Nasal Parainfluen 3 PCR NOT DETECTED 11/11/21 11:30 Nasal Parainfluen 4 PCR NOT DETECTED 11/11/21 11:30 Nasal RSV (PCR) NOT DETECTED 11/11/21 11:30 Nasal B.pertussis DNA PCR NOT DETECTED 11/11/21 11:30 Nasal C.pneumoniae (PCR) NOT DETECTED 11/11/21 11:30 Akhil Human Metapneumo PCR NOT DETECTED 11/11/21 11:30 Nasal M.pneumoniae (PCR) NOT DETECTED 11/11/21 11:30 Nasal SARS-CoV-2 (PCR) DETECTED A 11/11/21 11:30 Phenytoin 28.5 ug/mL 11/24/21 13:34 Lamotrigine 2.5 mcg/mL (4.0-18.0) L 11/08/21 08:39 Levetiracetam 17.6 mcg/mL 11/08/21 08:39 - Procedures Procedures: Procedures EXCISION OF ASCENDING COLON, ENDO (03/29/17) EXCISION OF DESCENDING COLON, ENDO (03/29/17) EXCISION OF RECTUM, ENDO (03/29/17) INSERTION OF INFUSION DEV INTO SUP VENA CAVA, PERC APPROACH (11/05/17) ABX Reporting Has patient been on IV antibiotics over the past 48 hours?: No Current Medications - Current Medications Current Medications: Active Medications Acetaminophen (Acetaminophen 325 Mg Tablet) 650 mg PO Q4HR PRN PRN Reason: Pain 1 to 4 Last Admin: 11/22/21 08:05 Dose: 650 mg Aspirin (Aspirin Ec 81 Mg Tablet) 81 mg PO 1200 JAKE Atorvastatin Calcium (Atorvastatin 10 Mg Tablet) 20 mg PO QPM [facility] Last Admin: 11/24/21 20:19 Dose: 20 mg Calcium Carbonate/Glycine (Calcium Carbonate Chew 500 Mg Tablet) 500 mg PO 1200,1900 JAKE Docusate Sodium (Docusate Sodium 250 Mg Capsule) 250 - 500 mg PO 1200 JAKE Enoxaparin Sodium (Enoxaparin 40 Mg/0.4 Ml Syringe) 40 mg SUBQ DAILY [facility] Last Admin: 11/25/21 08:33 Dose: 40 mg Finasteride (Finasteride 5 Mg Tablet) 5 mg PO 1200 [facility] Insulin Aspart (Insulin Aspart 300 Unit/3 Ml Pen) 3 - 11 unit SUBQ 0800,1200,1700,2100 [facility]; Protocol Last Admin: 11/25/21 11:53 Dose: 5 unit Insulin Glargine (Insulin Glargine 300 Unit/3 Ml Pen) 10 unit SUBQ QPM [facility] Last Admin: 11/24/21 20:22 Dose: 10 unit Lamotrigine (Lamotrigine 25 Mg Tablet) 25 mg PO BID [facility] Last Admin: 11/25/21 10:11 Dose: 25 mg Lamotrigine (Lamotrigine 100 Mg Tablet) 200 mg PO BID [facility] Last Admin: 11/25/21 10:11 Dose: 200 mg Levetiracetam (Levetiracetam 250 Mg Tablet) 1,000 mg PO BID [facility] Last Admin: 11/25/21 08:33 Dose: 1,000 mg Lorazepam (Lorazepam 2 Mg/Ml Vial) 2 mg IVP Q2H PRN PRN Reason: Seizure Metoprolol Succinate (Metoprolol Succinate 25 Mg Tablet) 12.5 mg PO BID [facility] Last Admin: 11/25/21 10:12 Dose: 12.5 mg Multivitamins/Minerals (Multivitamin W/Minerals Tablet) 1 tab PO 1200 [facility] Last Admin: 11/25/21 10:55 Dose: 1 tab Ondansetron HCl (Ondansetron Odt 4 Mg Tablet) 4 mg TL Q6HR PRN PRN Reason: Nausea / Vomiting Last Admin: 11/24/21 13:08 Dose: 4 mg Ondansetron HCl (Ondansetron 4 Mg/2 Ml Vial) 4 mg IVP Q6HR PRN PRN Reason: Nausea / Vomiting Last Admin: 11/24/21 22:43 Dose: 4 mg Oxycodone HCl (Oxycodone 5 Mg Tablet) 10 mg PO Q4HR PRN PRN Reason: Pain 8 to 10 Last Admin: 11/22/21 08:07 Dose: 10 mg Phenytoin Sodium (Phenytoin Er 100 Mg Capsule) 300 mg PO DAILY [facility] Last Admin: 11/25/21 10:15 Dose: 300 mg Phenytoin Sodium (Phenytoin Er 100 Mg Capsule) 400 mg PO QPM [facility] Last Admin: 11/24/21 20:18 Dose: 400 mg Polyethylene Glycol (Polyethylene Glycol 3350 17 Gm Packet) 17 gm PO 1200 [facility] Senna (Senna 8.6 Mg Tablet) 8.6 - 17.2 mg PO 1200 [facility] Sodium Chloride (Sodium Chloride Flush 0.9% 10 Ml Syringe) 10 ml IVP PRN PRN PRN Reason: NEEDED PER PROVIDER ORDERS Last Admin: 11/08/21 16:44 Dose: 10 ml Sodium Chloride (Sodium Chloride Flush 0.9% 10 Ml Syringe) 10 ml IVP 0100,0900,1700 [facility] Last Admin: 11/25/21 10:56 Dose: 10 ml Tamsulosin HCl (Tamsulosin 0.4 Mg Capsule) 0.4 mg PO 1200 JAKE Topiramate (Topiramate 25 Mg Tablet) 50 mg PO BID [facility] Last Admin: 11/25/21 08:34 Dose: 50 mg Phenytoin Sodium Extended [Dilantin] 300 mg PO DAILY 05/18/13 [id number] ER [Glucotrol Xl] 2.5 mg PO DAILY 12/19/17 Metoprolol Succinate 12.5 mg PO BID 09/04/18
[2021-11-25] MEDS: INSULIN GLARGINE 300 UNIT/3 ML PEN SUBQ SCH (21:15)
[2021-11-25] MEDS: ATORVASTATIN 10 MG TABLET PO SCH (21:18)
[2021-11-26] MEDS: SODIUM CHLORIDE FLUSH 0.9% 10 ML SYRINGE IVP SCH ×3 (01:15→17:04)
[2021-11-26 05:46] LABS: BASOPHILS # (AUTO) 0.1 10^3/uL (0.0-0.1); BASOPHILS % (AUTO) 1.3 %; EOSINOPHILS # (AUTO) 0.8 10^3/uL (0.0-0.7); HCT - HEMATOCRIT 37.1 % (42.0-52.0); HGB - HEMOGLOBIN 11.9 g/dL (14.0-18.0); LYMPHOCYTES # (AUTO) 2.1 10^3/uL (1.5-3.5); LYMPHOCYTES % (AUTO) 30.1 %; MEAN CORPUSCULAR HEMOGLOBIN 29.8 pg (27.0-31.0); MEAN CORPUSCULAR HGB CONC 32.1 g/dL (32.0-36.0); MEAN CORPUSCULAR VOLUME 92.8 fL (80.0-94.0); MEAN PLATELET VOLUME 8.8 fL (7.4-11.4); MONOCYTES # (AUTO) 0.6 10^3/uL (0.0-1.0); MONOCYTES % (AUTO) 9.1 %; NEUTROPHILS # (AUTO) 3.3 10^3/uL (1.5-6.6); NEUTROPHILS % (AUTO) 48.1 %; PLT - PLATELET COUNT 611 10^3/uL (130-450); WHITE BLOOD COUNT 6.8 x10^3/uL (4.8-10.8)
[2021-11-26 05:57] LABS: CALCIUM 8.8 mg/dL (8.5-10.3); CREATININE 0.9 mg/dL (0.6-1.2); POTASSIUM 4.2 mmol/L (3.5-5.0)
[2021-11-26] MEDS: INSULIN ASPART 300 UNIT/3 ML PEN SUBQ SCH ×4 (08:00→20:28)
[2021-11-26] MEDS: levETIRAcetam 250 MG TABLET PO SCH ×2 (08:02→20:25)
[2021-11-26] MEDS: lamoTRIgine 100 MG TABLET PO SCH ×2 (09:30→20:25)
[2021-11-26] MEDS: ENOXAPARIN 40 MG/0.4 ML SYRINGE SUBQ SCH (09:30)
[2021-11-26] MEDS: TOPIRAMATE 25 MG TABLET PO SCH ×2 (09:31→20:24)
[2021-11-26] MEDS: lamoTRIgine 25 MG TABLET PO SCH ×2 (09:31→20:25)
[2021-11-26] MEDS: PHENYTOIN ER 100 MG CAPSULE PO SCH ×2 (09:31→20:24)
[2021-11-26] MEDS: METOPROLOL SUCCINATE 25 MG TABLET PO SCH ×2 (09:34→20:27)
--- NOTE | 2021-11-26 11:58 | PROVIDER PROGRESS NOTE ---
Assessment/Plan - Problem List (1) Closed right hip fracture Qualifiers: Encounter type: subsequent encounter Assessment/Plan: 11/26 pt feel comfortable and stable. pt is pending for [facility] placement 11/25 pt is comfortable, eat his whole breakfast. pt is pending for [facility] care placement, social media strategist was consulted for that 11/24 pt is comfortable, enjoy his lunch, and ask when he can go to nurse facility. pt is pending for placement, social media strategist was consulted for that. continue pain control, lovenox for DVT prophylaxis, continue PT/OT 11/23 pt had right hip fracture repaired, then pt had PT/OT evaluation and treatment. per pt's family, pt is planned to d/c to [facility]. social media strategist was consulted for placement (2) COVID-19 Pt was newly diagnosed as Covid (+) on 11/11/2021 after he was tested in preparation for discharge. Patient was asymptomatic without fever, cough, stable O2 sat without respiratory distress, so pt was not treated for Covid 19. (3) Seizure disorder Assessment/Plan: Stable. No further seizures On Keppra 1000 mg p.o. twice daily and Lamictal 200 mg p.o. twice daily. Phenytoin 300 mg p.o. daily and 400 mg p.o. every afternoon. Topamax 50 mg p.o. twice daily. Also PRN Ativan for acute seizure (4) History of coronary artery disease Assessment/Plan: Stable, On metoprolol succinate 12.5 mg p.o. twice daily. Aspirin 81 mg p.o. daily. Atorvastatin 20 mg p.o. every afternoon (5) Type 2 diabetes mellitus stable, continue carb controlled diet, glucose checks, sliding scale Insulin coverage, Lantus dosing, hypoglycemia protocol. 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 He is at his baseline. 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 (7) BPH Continue Flonax and Proscar - Current Meds Current Meds: Current Medications Generic Name Dose Route Start Last Admin Trade Name Freq PRN Reason Stop Dose Admin Acetaminophen 650 mg 11/06/21 21:18 11/22/21 08:05 Acetaminophen 325 Mg Tablet PO 650 mg Q4HR PRN Administration Pain 1 to 4 Atorvastatin Calcium 20 mg 11/06/21 23:00 11/25/21 21:18 Atorvastatin 10 Mg Tablet PO 20 mg QPM JAKE Administration Calcium Carbonate/Glycine 500 mg 11/25/21 19:00 11/25/21 19:52 Calcium Carbonate Chew 500 Mg Tablet PO 500 mg 1200,1900 JAKE Administration Enoxaparin Sodium 40 mg 11/08/21 13:00 11/26/21 09:30 Enoxaparin 40 Mg/0.4 Ml Syringe SUBQ 40 mg DAILY JAKE Administration Insulin Aspart 3 - 11 unit 11/09/21 12:00 11/26/21 08:00 Insulin Aspart 300 Unit/3 Ml Pen SUBQ Not Given 0800,1200,1700,2100 [facility] Protocol Insulin Glargine 10 unit 11/10/21 21:00 11/25/21 21:15 Insulin Glargine 300 Unit/3 Ml Pen SUBQ 10 unit QPM JAKE Administration Lamotrigine 25 mg 11/06/21 22:00 11/26/21 09:31 Lamotrigine 25 Mg Tablet PO 25 mg BID JAKE Administration Lamotrigine 200 mg 11/06/21 22:00 11/26/21 09:30 Lamotrigine 100 Mg Tablet PO 200 mg BID JAKE Administration Levetiracetam 1,000 mg 11/06/21 23:00 11/26/21 08:02 Levetiracetam 250 Mg Tablet PO 1,000 mg BID JAKE Administration Metoprolol Succinate 12.5 mg 11/06/21 22:00 11/26/21 09:34 Metoprolol Succinate 25 Mg Tablet PO 12.5 mg BID JAKE Administration Multivitamins/Minerals 1 tab 11/25/21 12:00 11/25/21 10:55 Multivitamin W/Minerals Tablet PO 1 tab 1200 [facility] Administration Ondansetron HCl 4 mg 11/06/21 21:18 11/24/21 13:08 Ondansetron Odt 4 Mg Tablet TL 4 mg Q6HR PRN Administration Nausea / Vomiting Ondansetron HCl 4 mg 11/06/21 21:18 11/24/21 22:43 Ondansetron 4 Mg/2 Ml Vial IVP 4 mg Q6HR PRN Administration Nausea / Vomiting Oxycodone HCl 10 mg 11/06/21 21:18 11/22/21 08:07 Oxycodone 5 Mg Tablet PO 10 mg Q4HR PRN Administration Pain 8 to 10 Phenytoin Sodium 300 mg 11/07/21 09:00 11/26/21 09:31 Phenytoin Er 100 Mg Capsule PO 300 mg DAILY JAKE Administration Phenytoin Sodium 400 mg 11/06/21 23:00 11/25/21 21:14 Phenytoin Er 100 Mg Capsule PO 400 mg QPM JAKE Administration Sodium Chloride 10 ml 11/06/21 21:18 11/08/21 16:44 Sodium Chloride Flush 0.9% 10 Ml Syringe IVP 10 ml PRN PRN Administration NEEDED PER PROVIDER ORDERS Sodium Chloride 10 ml 11/07/21 01:00 11/26/21 01:15 Sodium Chloride Flush 0.9% 10 Ml Syringe IVP 10 ml 0100,0900,1700 JAKE Administration Topiramate 50 mg 11/06/21 23:00 11/26/21 09:31 Topiramate 25 Mg Tablet PO 50 mg BID JAKE Administration - Lab Result Fish Bone Diagrams: 11/26/21 05:30 11/26/21 05:30 - Additional Planning My Orders: My Active Orders 11/25/21 19:00 Calcium Carbonate [Tums] 500 mg PO 1200,1900 11/26/21 12:00 Aspirin EC [Ecotrin] 81 mg PO 1200 Docusate Sodium 250Mg Capsule [Colace 250Mg Capsule] 250 - 500 mg PO 1200 Finasteride [Proscar] 5 mg PO 1200 Senna [Senokot] 8.6 - 17.2 mg PO 1200 Tamsulosin [Flomax] 0.4 mg PO 1200 polyethylene glycoL 3350 [Miralax] 17 gm PO 1200 11/27/21 05:00 BMP - BASIC METABOLIC PANEL [CHEM] DAILYLAB CBC - COMP BLD CT W/AUTO DIFF [HEME] DAILYLAB 11/28/21 05:00 BMP - BASIC METABOLIC PANEL [CHEM] DAILYLAB CBC - COMP BLD CT W/AUTO DIFF [HEME] DAILYLAB 11/29/21 05:00 BMP - BASIC METABOLIC PANEL [CHEM] DAILYLAB CBC - COMP BLD CT W/AUTO DIFF [HEME] DAILYLAB Subjective - Subjective Patient Reports: Resting Comfortably Objective Vital Signs: Vital Signs - 24 hr 11/25/21 11/25/21 11/25/21 16:07 21:01 23:54 Temperature 36.3 C L 36.5 C 36.4 C L Heart Rate [ 74 68 75 Brachial] Respiratory 18 18 20 Rate Blood Pressure 104/72 [Left Brachial artery] Blood Pressure 110/62 109/54 L [Right Brachial artery] O2 Saturation 98 99 99 11/26/21 08:04 Temperature 36.6 C Heart Rate [ 66 Brachial] Respiratory 18 Rate Blood Pressure [Left Brachial artery] Blood Pressure 100/55 L [Right Brachial artery] O2 Saturation 96 Oxygen O2 Source [With Activity] Room air O2 Source Room air I&O (Last 24 Hrs): Intake and Output Totals x24h 11/24/21 11/25/21 11/26/21 23:59 23:59 23:59 Intake Total 1140 1733 290 Output Total 430 Balance 710 1733 290 General: Alert, No acute distress HEENT: Atraumatic Neck: Supple Lymphatic: no adenopathy Neuro: Alert, Non Focal Cardiovascular: Regular rate, Normal S1, Normal S2 Respiratory: Chest non-tender, No respiratory distress Abdomen: Normal bowel sounds, Soft Extremities: Normal pulses, Other (intact neurovascular exam on right lower extremity) Skin: No breakdown - Results Results: Laboratory Results WBC 6.8 x10^3/uL (4.8-10.8) 11/26/21 05:30 RBC 4.00 10^6/uL (4.70-6.10) L 11/26/21 05:30 Hgb 11.9 g/dL (14.0-18.0) L 11/26/21 05:30 Hct 37.1 % (42.0-52.0) L 11/26/21 05:30 MCV 92.8 fL (80.0-94.0) 11/26/21 05:30 MCH 29.8 pg (27.0-31.0) 11/26/21 05:30 MCHC 32.1 g/dL (32.0-36.0) 11/26/21 05:30 RDW 14.0 % (12.0-15.0) 11/26/21 05:30 Plt Count 611 10^3/uL (130-450) H 11/26/21 05:30 MPV 8.8 fL (7.4-11.4) 11/26/21 05:30 Neut # (Auto) 3.3 10^3/uL (1.5-6.6) 11/26/21 05:30 Lymph # (Auto) 2.1 10^3/uL (1.5-3.5) 11/26/21 05:30 [place] # (Auto) 0.6 10^3/uL (0.0-1.0) 11/26/21 05:30 Eos # (Auto) 0.8 10^3/uL (0.0-0.7) H 11/26/21 05:30 Baso # (Auto) 0.1 10^3/uL (0.0-0.1) 11/26/21 05:30 Absolute Nucleated RBC 0.00 x10^3/uL 11/26/21 05:30 Nucleated RBC % 0.0 /100WBC 11/26/21 05:30 PT 11.7 secs (9.9-12.6) 11/06/21 21:20 INR 1.1 (0.8-1.2) 11/06/21 21:20 APTT 25.3 secs (24.9-33.3) 11/06/21 21:20 Sodium 136 mmol/L (135-145) 11/26/21 05:30 Potassium 4.2 mmol/L (3.5-5.0) 11/26/21 05:30 Chloride 101 mmol/L (101-111) 11/26/21 05:30 Carbon Dioxide 26 mmol/L (21-32) 11/26/21 05:30 Anion Gap 9.0 (6-13) 11/26/21 05:30 BUN 22 mg/dL (6-20) H 11/26/21 05:30 Creatinine 0.9 mg/dL (0.6-1.2) 11/26/21 05:30 Estimated GFR (MDRD) 83 (>89) L 11/26/21 05:30 Glucose 90 mg/dL (70-100) 11/26/21 05:30 POC Whole Bld Glucose 181 mg/dL (70 - 100) H 11/26/21 11:47 Estimat Average Glucose 126 mg/dL (70-100) H 11/08/21 06:45 Hemoglobin A1c % 6.0 % (4.27-6.07) 11/08/21 06:45 Calcium 8.8 mg/dL (8.5-10.3) 11/26/21 05:30 Total Bilirubin 0.5 mg/dL (0.2-1.0) 11/06/21 21:20 AST 35 IU/L (10-42) 11/06/21 21:20 ALT 39 IU/L (10-60) 11/06/21 21:20 Alkaline Phosphatase 91 IU/L (42-121) 11/06/21 21:20 Total Protein 8.7 g/dL (6.7-8.2) H 11/06/21 21:20 Albumin 4.4 g/dL (3.2-5.5) 11/06/21 21:20 Globulin 4.3 g/dL (2.1-4.2) H 11/06/21 21:20 Albumin/Globulin Ratio 1.0 (1.0-2.2) 11/06/21 21:20 Lipase 38 U/L (22-51) 11/06/21 21:20 25-OH Vitamin D Total 15 ng/mL (30-100) L 11/10/21 11:14 Urine Color DARK YELLOW 11/06/21 21:12 Urine Clarity CLEAR (CLEAR) 11/06/21 21:12 Urine pH 6.0 PH (5.0-7.5) 11/06/21 21:12 Ur Specific [place] 1.020 (1.002-1.030) 11/06/21 21:12 Urine Protein TRACE mg/dL (NEGATIVE) 11/06/21 21:12 Urine Glucose (UA) 100 mg/dL (NEGATIVE) H 11/06/21 21:12 Urine Ketones NEGATIVE mg/dL (NEGATIVE) 11/06/21 21:12 Urine Occult Blood NEGATIVE (NEGATIVE) 11/06/21 21:12 Urine Nitrite NEGATIVE (NEGATIVE) 11/06/21 21:12 Urine Bilirubin NEGATIVE (NEGATIVE) 11/06/21 21:12 Urine Urobilinogen 0.2 (NORMAL) E.U./dL (NORMAL) 11/06/21 21:12 Ur Leukocyte Esterase NEGATIVE (NEGATIVE) 11/06/21 21:12 Ur Microscopic Review NOT INDICATED 11/06/21 21:12 Urine Culture Comments NOT INDICATED 11/06/21 21:12 Nasal Adenovirus (PCR) NOT DETECTED 11/11/21 11:30 Nasal B. parapertussis DNA (PCR) NOT DETECTED 11/11/21 11:30 Nasal Coronavir 229E PCR NOT DETECTED 11/11/21 11:30 Nasal Coronavir HKU1 PCR NOT DETECTED 11/11/21 11:30 Nasal Coronavir NL63 PCR NOT DETECTED 11/11/21 11:30 Nasal Coronavir OC43 PCR NOT DETECTED 11/11/21 11:30 Nasal Enterovir/Rhinovir PCR NOT DETECTED 11/11/21 11:30 Nasal Influenza B PCR NOT DETECTED 11/11/21 11:30 Nasal Influenza A PCR NOT DETECTED 11/11/21 11:30 Nasal Parainfluen 1 PCR NOT DETECTED 11/11/21 11:30 Nasal Parainfluen 2 PCR NOT DETECTED 11/11/21 11:30 Nasal Parainfluen 3 PCR NOT DETECTED 11/11/21 11:30 Nasal Parainfluen 4 PCR NOT DETECTED 11/11/21 11:30 Nasal RSV (PCR) NOT DETECTED 11/11/21 11:30 Nasal B.pertussis DNA PCR NOT DETECTED 11/11/21 11:30 Nasal C.pneumoniae (PCR) NOT DETECTED 11/11/21 11:30 Akhil Human Metapneumo PCR NOT DETECTED 11/11/21 11:30 Nasal M.pneumoniae (PCR) NOT DETECTED 11/11/21 11:30 Nasal SARS-CoV-2 (PCR) DETECTED A 11/11/21 11:30 Phenytoin 28.5 ug/mL 11/24/21 13:34 Lamotrigine 2.5 mcg/mL (4.0-18.0) L 11/08/21 08:39 Levetiracetam 17.6 mcg/mL 11/08/21 08:39 - Procedures Procedures: Procedures EXCISION OF ASCENDING COLON, ENDO (03/29/17) EXCISION OF DESCENDING COLON, ENDO (03/29/17) EXCISION OF RECTUM, ENDO (03/29/17) INSERTION OF INFUSION DEV INTO SUP VENA CAVA, PERC APPROACH (11/05/17) ABX Reporting Has patient been on IV antibiotics over the past 48 hours?: No Current Medications - Current Medications Current Medications: Active Medications Acetaminophen (Acetaminophen 325 Mg Tablet) 650 mg PO Q4HR PRN PRN Reason: Pain 1 to 4 Last Admin: 11/22/21 08:05 Dose: 650 mg Aspirin (Aspirin Ec 81 Mg Tablet) 81 mg PO 1200 JAKE Atorvastatin Calcium (Atorvastatin 10 Mg Tablet) 20 mg PO QPM JAKE Last Admin: 11/25/21 21:18 Dose: 20 mg Calcium Carbonate/Glycine (Calcium Carbonate Chew 500 Mg Tablet) 500 mg PO 1200,1900 [facility] Last Admin: 11/25/21 19:52 Dose: 500 mg Docusate Sodium (Docusate Sodium 250 Mg Capsule) 250 - 500 mg PO 1200 [facility] Enoxaparin Sodium (Enoxaparin 40 Mg/0.4 Ml Syringe) 40 mg SUBQ DAILY [facility] Last Admin: 11/26/21 09:30 Dose: 40 mg Finasteride (Finasteride 5 Mg Tablet) 5 mg PO 1200 [facility] Insulin Aspart (Insulin Aspart 300 Unit/3 Ml Pen) 3 - 11 unit SUBQ 0800,1200,1700,2100 [facility]; Protocol Last Admin: 11/26/21 08:00 Dose: Not Given Insulin Glargine (Insulin Glargine 300 Unit/3 Ml Pen) 10 unit SUBQ QPM [facility] Last Admin: 11/25/21 21:15 Dose: 10 unit Lamotrigine (Lamotrigine 25 Mg Tablet) 25 mg PO BID [facility] Last Admin: 11/26/21 09:31 Dose: 25 mg Lamotrigine (Lamotrigine 100 Mg Tablet) 200 mg PO BID [facility] Last Admin: 11/26/21 09:30 Dose: 200 mg Levetiracetam (Levetiracetam 250 Mg Tablet) 1,000 mg PO BID [facility] Last Admin: 11/26/21 08:02 Dose: 1,000 mg Lorazepam (Lorazepam 2 Mg/Ml Vial) 2 mg IVP Q2H PRN PRN Reason: Seizure Metoprolol Succinate (Metoprolol Succinate 25 Mg Tablet) 12.5 mg PO BID [facility] Last Admin: 11/26/21 09:34 Dose: 12.5 mg Multivitamins/Minerals (Multivitamin W/Minerals Tablet) 1 tab PO 1200 [facility] Last Admin: 11/25/21 10:55 Dose: 1 tab Ondansetron HCl (Ondansetron Odt 4 Mg Tablet) 4 mg TL Q6HR PRN PRN Reason: Nausea / Vomiting Last Admin: 11/24/21 13:08 Dose: 4 mg Ondansetron HCl (Ondansetron 4 Mg/2 Ml Vial) 4 mg IVP Q6HR PRN PRN Reason: Nausea / Vomiting Last Admin: 11/24/21 22:43 Dose: 4 mg Oxycodone HCl (Oxycodone 5 Mg Tablet) 10 mg PO Q4HR PRN PRN Reason: Pain 8 to 10 Last Admin: 11/22/21 08:07 Dose: 10 mg Phenytoin Sodium (Phenytoin Er 100 Mg Capsule) 300 mg PO DAILY [facility] Last Admin: 11/26/21 09:31 Dose: 300 mg Phenytoin Sodium (Phenytoin Er 100 Mg Capsule) 400 mg PO QPM [facility] Last Admin: 11/25/21 21:14 Dose: 400 mg Polyethylene Glycol (Polyethylene Glycol 3350 17 Gm Packet) 17 gm PO 1200 [facility] Senna (Senna 8.6 Mg Tablet) 8.6 - 17.2 mg PO 1200 [facility] Sodium Chloride (Sodium Chloride Flush 0.9% 10 Ml Syringe) 10 ml IVP PRN PRN PRN Reason: NEEDED PER PROVIDER ORDERS Last Admin: 11/08/21 16:44 Dose: 10 ml Sodium Chloride (Sodium Chloride Flush 0.9% 10 Ml Syringe) 10 ml IVP 0100,0900,1700 [facility] Last Admin: 11/26/21 01:15 Dose: 10 ml Tamsulosin HCl (Tamsulosin 0.4 Mg Capsule) 0.4 mg PO 1200 [facility] Topiramate (Topiramate 25 Mg Tablet) 50 mg PO BID [facility] Last Admin: 11/26/21 09:31 Dose: 50 mg Phenytoin Sodium Extended [Dilantin] 300 mg PO DAILY 05/18/13 glipiZIDE ER [Glucotrol Xl] 2.5 mg PO DAILY 12/19/17 Metoprolol Succinate 12.5 mg PO BID 09/04/18
[2021-11-26] MEDS: MULTIVITAMIN W/MINERALS TABLET PO SCH (12:01)
[2021-11-26] MEDS: TAMSULOSIN 0.4 MG CAPSULE PO SCH (12:01)
[2021-11-26] MEDS: DOCUSATE SODIUM 250 MG CAPSULE PO SCH (12:01)
[2021-11-26] MEDS: FINASTERIDE 5 MG TABLET PO SCH (12:01)
[2021-11-26] MEDS: CALCIUM CARBONATE CHEW 500 MG TABLET PO SCH ×2 (12:01→17:29)
[2021-11-26] MEDS: SENNA 8.6 MG TABLET PO SCH (12:01)
[2021-11-26] MEDS: polyethylene glycoL 3350 17 GM PACKET PO SCH (12:02)
[2021-11-26] MEDS: ASPIRIN EC 81 MG TABLET PO SCH (12:02)
[2021-11-26 14:57] LABS: CORONAVIRUS 229E-RESP PCR NOT DETECTED; CORONAVIRUS HKU1-RESP PCR NOT DETECTED; CORONAVIRUS NL63-RESP PCR NOT DETECTED; CORONAVIRUS OC43-RESP PCR NOT DETECTED; HUMAN METAPNEUMOVIRUS NOT DETECTED; SARS-CoV-2 -RESP PCR PANEL NOT DETECTED
[2021-11-26 14:58] LABS: B. PARAPERTUSSIS- RESP PCR PAN NOT DETECTED; B. PERTUSSIS- RESP PCR PANEL NOT DETECTED; C. PNEUMONIAE- RESP PCR PANEL NOT DETECTED; INFLUENZA A- RESP PCR PANEL NOT DETECTED; INFLUENZA B - RESP PCR PANEL NOT DETECTED; M. PNEUMONIAE- RESP PCR PANEL NOT DETECTED; PARAINFLUENZA VIRUS 1 NOT DETECTED; PARAINFLUENZA VIRUS 2 NOT DETECTED; PARAINFLUENZA VIRUS 3 NOT DETECTED; PARAINFLUENZA VIRUS 4 NOT DETECTED; RHINOVIRUS/ENTEROVIRUS NOT DETECTED; RSV- RESP PCR PANEL NOT DETECTED
[2021-11-26] MEDS: ATORVASTATIN 10 MG TABLET PO SCH (20:24)
[2021-11-26] MEDS: INSULIN GLARGINE 300 UNIT/3 ML PEN SUBQ SCH (20:29)
[2021-11-27] MEDS: SODIUM CHLORIDE FLUSH 0.9% 10 ML SYRINGE IVP SCH ×3 (04:44→17:02)
[2021-11-27 05:45] LABS: BASOPHILS # (AUTO) 0.1 10^3/uL (0.0-0.1); BASOPHILS % (AUTO) 1.1 %; EOSINOPHILS # (AUTO) 0.7 10^3/uL (0.0-0.7); EOSINOPHILS % (AUTO) 10.2 %; HCT - HEMATOCRIT 37.4 % (42.0-52.0); HGB - HEMOGLOBIN 11.8 g/dL (14.0-18.0); LYMPHOCYTES # (AUTO) 1.9 10^3/uL (1.5-3.5); LYMPHOCYTES % (AUTO) 28.5 %; MEAN CORPUSCULAR HEMOGLOBIN 29.4 pg (27.0-31.0); MEAN CORPUSCULAR HGB CONC 31.6 g/dL (32.0-36.0); MEAN CORPUSCULAR VOLUME 93.3 fL (80.0-94.0); MEAN PLATELET VOLUME 8.9 fL (7.4-11.4); MONOCYTES # (AUTO) 0.7 10^3/uL (0.0-1.0); NEUTROPHILS # (AUTO) 3.3 10^3/uL (1.5-6.6); PLT - PLATELET COUNT 589 10^3/uL (130-450); RED BLOOD COUNT 4.01 10^6/uL (4.70-6.10); RED CELL DISTRIBUTION WIDTH 13.9 % (12.0-15.0); WHITE BLOOD COUNT 6.6 x10^3/uL (4.8-10.8)
[2021-11-27 05:53] LABS: CALCIUM 8.5 mg/dL (8.5-10.3)
[2021-11-27] MEDS ORDERED: MAGNESIUM HYDROXIDE 2,400 MG/30 ML UDC PO ONE (09:00)
[2021-11-27] MEDS: INSULIN ASPART 300 UNIT/3 ML PEN SUBQ SCH ×4 (09:05→20:43)
[2021-11-27] MEDS: ENOXAPARIN 40 MG/0.4 ML SYRINGE SUBQ SCH (09:06)
[2021-11-27] MEDS: levETIRAcetam 250 MG TABLET PO SCH ×2 (09:06→20:40)
[2021-11-27] MEDS: lamoTRIgine 25 MG TABLET PO SCH ×2 (09:07→20:40)
[2021-11-27] MEDS: METOPROLOL SUCCINATE 25 MG TABLET PO SCH ×2 (09:07→20:42)
[2021-11-27] MEDS: lamoTRIgine 100 MG TABLET PO SCH ×2 (09:07→20:42)
[2021-11-27] MEDS: PHENYTOIN ER 100 MG CAPSULE PO SCH ×2 (09:08→20:42)
[2021-11-27] MEDS: TOPIRAMATE 25 MG TABLET PO SCH ×2 (09:17→20:42)
[2021-11-27] MEDS: polyethylene glycoL 3350 17 GM PACKET PO SCH (13:39)
[2021-11-27] MEDS: SENNA 8.6 MG TABLET PO SCH (13:39)
[2021-11-27] MEDS: CALCIUM CARBONATE CHEW 500 MG TABLET PO SCH ×2 (13:39→18:25)
[2021-11-27] MEDS: TAMSULOSIN 0.4 MG CAPSULE PO SCH (13:40)
[2021-11-27] MEDS: MULTIVITAMIN W/MINERALS TABLET PO SCH (13:40)
[2021-11-27] MEDS: FINASTERIDE 5 MG TABLET PO SCH (13:40)
[2021-11-27] MEDS: DOCUSATE SODIUM 250 MG CAPSULE PO SCH (13:40)
[2021-11-27] MEDS: ASPIRIN EC 81 MG TABLET PO SCH (13:41)
--- NOTE | 2021-11-27 20:21 | PROVIDER PROGRESS NOTE ---
Progress Note November 27, 2021 8:17 PM Mr. Salas has been here for 22 days. He had a fracture of the hip and underwent an uncomplicated repair. On the day of discharge, upon transfer to the care home facility, we did a routine COVID test. He was positive. We have been awaiting placement since that time. No cough, fever, chills. Out of quarantine over a week ago. 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 Cooperative gentleman. Temperature 36.4. Heart rate 73. Blood pressure 114/68. Respirations 20. 99% on room air. Tall, white male looks older than stated. Cognitive deficit present in speech pattern. Neck is supple. Lungs are clear Regular rate and rhythm Abdomen benign Wound is closed, healed. No drainage. Last seen by physical therapy November 17. He sits up in bed., Independent with transfers to chair. Decreased cognition and communication with significant distractibility. Poor balance. History of frequent falls. He does follow prompting. Assessment/plan status post fall and hip fracture, uncomplicated repair. COVID- positive status on postop day 4. Patient awaiting transfer to home or transfer to care home facility.
[2021-11-27] MEDS: ATORVASTATIN 10 MG TABLET PO SCH (20:42)
[2021-11-27] MEDS: INSULIN GLARGINE 300 UNIT/3 ML PEN SUBQ SCH (20:43)
[2021-11-28 06:02] LABS: BASOPHILS # (AUTO) 0.1 10^3/uL (0.0-0.1); BASOPHILS % (AUTO) 0.9 %; EOSINOPHILS # (AUTO) 0.6 10^3/uL (0.0-0.7); EOSINOPHILS % (AUTO) 8.8 %; HCT - HEMATOCRIT 38.3 % (42.0-52.0); HGB - HEMOGLOBIN 12.4 g/dL (14.0-18.0); LYMPHOCYTES # (AUTO) 1.6 10^3/uL (1.5-3.5); LYMPHOCYTES % (AUTO) 24.6 %; MEAN CORPUSCULAR HEMOGLOBIN 29.9 pg (27.0-31.0); MEAN CORPUSCULAR HGB CONC 32.4 g/dL (32.0-36.0); MEAN CORPUSCULAR VOLUME 92.3 fL (80.0-94.0); MEAN PLATELET VOLUME 8.8 fL (7.4-11.4); MONOCYTES # (AUTO) 0.7 10^3/uL (0.0-1.0); MONOCYTES % (AUTO) 10.6 %; NEUTROPHILS # (AUTO) 3.7 10^3/uL (1.5-6.6); NEUTROPHILS % (AUTO) 54.8 %; PLT - PLATELET COUNT 544 10^3/uL (130-450); RED BLOOD COUNT 4.15 10^6/uL (4.70-6.10); WHITE BLOOD COUNT 6.7 x10^3/uL (4.8-10.8)
[2021-11-28 06:12] LABS: CALCIUM 8.7 mg/dL (8.5-10.3); POTASSIUM 3.9 mmol/L (3.5-5.0)
[2021-11-28] MEDS: SODIUM CHLORIDE FLUSH 0.9% 10 ML SYRINGE IVP SCH ×3 (07:22→17:01)
[2021-11-28] MEDS ORDERED: ZINC OXIDE 20% OINT 30 GM TUBE TOP PRN (07:29)
[2021-11-28] MEDS: INSULIN ASPART 300 UNIT/3 ML PEN SUBQ SCH ×4 (09:10→20:22)
[2021-11-28] MEDS: METOPROLOL SUCCINATE 25 MG TABLET PO SCH ×2 (09:11→20:09)
[2021-11-28] MEDS: ENOXAPARIN 40 MG/0.4 ML SYRINGE SUBQ SCH (09:12)
[2021-11-28] MEDS: TOPIRAMATE 25 MG TABLET PO SCH ×2 (09:13→20:09)
[2021-11-28] MEDS: lamoTRIgine 100 MG TABLET PO SCH ×2 (09:13→20:08)
[2021-11-28] MEDS: levETIRAcetam 250 MG TABLET PO SCH ×2 (09:13→20:08)
[2021-11-28] MEDS: PHENYTOIN ER 100 MG CAPSULE PO SCH ×2 (09:13→20:08)
[2021-11-28] MEDS: lamoTRIgine 25 MG TABLET PO SCH ×2 (09:13→20:19)
[2021-11-28] MEDS ORDERED: BISACODYL 10 MG SUPP PR ONE (09:43)
[2021-11-28] MEDS: CALCIUM CARBONATE CHEW 500 MG TABLET PO SCH ×2 (12:01→18:33)
[2021-11-28] MEDS: FINASTERIDE 5 MG TABLET PO SCH (12:01)
[2021-11-28] MEDS: TAMSULOSIN 0.4 MG CAPSULE PO SCH (12:01)
[2021-11-28] MEDS: SENNA 8.6 MG TABLET PO SCH (12:01)
[2021-11-28] MEDS: MULTIVITAMIN W/MINERALS TABLET PO SCH (12:01)
[2021-11-28] MEDS: DOCUSATE SODIUM 250 MG CAPSULE PO SCH (12:01)
[2021-11-28] MEDS: ASPIRIN EC 81 MG TABLET PO SCH (12:01)
[2021-11-28] MEDS: polyethylene glycoL 3350 17 GM PACKET PO SCH (12:03)
[2021-11-28] MEDS: ATORVASTATIN 10 MG TABLET PO SCH (20:09)
[2021-11-28] MEDS: INSULIN GLARGINE 300 UNIT/3 ML PEN SUBQ SCH (20:22)
--- NOTE | 2021-11-28 20:27 | PROVIDER PROGRESS NOTE ---
Progress Note Mr. Mehdi Madsen is a very pleasant 75-year-old male with cognitive deficits secondary to craniotomy and seizure disorder that was admitted November 14 for a hip fracture. He had a witnessed fall onto his right side and could not walk. Found to have a hip fracture and admitted. Complications during his stay included an occasional episode of stress induced seizure. But he did well with surgery and had minimal acute blood loss anemia. Admission hemoglobin 14.3. His lowest hemoglobin has been 10.9. He is 12.4 g today. He underwent a right hip hemiarthroplasty using a [employer] #15 noncemented femoral component, +0, standard offset with 54 mm unipolar femoral head on November 07. On postoperative day #4 he was evaluated for discharge and felt stable to go. We did a predischarge Covid test prior to transfer, and he was Covid positive. As such the [facility] would not take him. The patient was asymptomatic without fever, cough, and normal O2 sats. During his entire time he has been asymptomatic and never required treatment. As such she has been awaiting placement since November 11. He has been stable. Alert. Cooperative. Cognitive deficits present. Perseverates and repeats his questions. He always introduces himself, ask where you were born, ask if you have any children, ask where you live. And then he proceeds to share his history with you of where he was born, how he came to live in the towns he lives in, and who his family is. He does this every single time. Temperature is 36.5. Heart rate 72. Blood pressure 110/62. Respirations 19. 99% on room air. 6 feet 2 inches tall, 89.3 kg Alert, oriented to place and person. Not quite sure on the date but he does know that is 2021. Neck is supple. Lungs are clear to auscultation and percussion without increased respiratory effort Regular rate and rhythm Abdomen soft, nontender, benign Wound is clean, closed. We do not believe he has been seen by orthopedics since November 09. A 2-week follow-up would have been November 21. Extremities without edema, full range of motion Neurologically cognitive deficit present, repetitive speech patterns, a type of restless movement with head rolling back on the pillow, arm spontaneously waving to gesticulate, and able to transition to sitting, standing with standby assist. White cell count 6.7. Hemoglobin 12.4. Hematocrit 38.3. Sodium 134, potassium 3.9. BUN 22, creatinine 1.0 Assessment/plan Mechanical fall resulting in hip fracture. Successfully treated. Chronic medical problems of seizure disorder were stabilized or monitored. He is on his medications for coronary artery disease, BPH. His cognitive and neurobehavioral dysfunction is stable. Type 2 diabetes mellitus is controlled on Lantus and sliding scale. At home he is usually on glipizide extended release and metformin. Those will be resumed at discharge. Right now his current seizure medications are unchanged. He is doing so well, I will ask social work if the patient is possible for discharge to home with home health follow-up. He also has daily labs that I will discontinue after today. He has been stable and will not need labs for another week or so. I will also ask orthopedics to see him before he leaves so that he can avoid having to see them in their office for follow-up visit.
[2021-11-29] MEDS: SODIUM CHLORIDE FLUSH 0.9% 10 ML SYRINGE IVP SCH ×3 (01:11→17:12)
[2021-11-29] MEDS: INSULIN ASPART 300 UNIT/3 ML PEN SUBQ SCH ×4 (08:11→20:45)
[2021-11-29] MEDS: ENOXAPARIN 40 MG/0.4 ML SYRINGE SUBQ SCH (09:07)
[2021-11-29] MEDS: TOPIRAMATE 25 MG TABLET PO SCH ×2 (09:09→20:43)
[2021-11-29] MEDS: PHENYTOIN ER 100 MG CAPSULE PO SCH ×2 (09:10→20:44)
[2021-11-29] MEDS: levETIRAcetam 250 MG TABLET PO SCH ×2 (09:11→20:44)
[2021-11-29] MEDS: lamoTRIgine 100 MG TABLET PO SCH ×2 (09:12→20:44)
[2021-11-29] MEDS: METOPROLOL SUCCINATE 25 MG TABLET PO SCH ×2 (09:12→20:44)
[2021-11-29] MEDS: lamoTRIgine 25 MG TABLET PO SCH ×2 (09:13→20:44)
[2021-11-29] MEDS: polyethylene glycoL 3350 17 GM PACKET PO SCH (11:53)
[2021-11-29] MEDS: ASPIRIN EC 81 MG TABLET PO SCH (11:53)
[2021-11-29] MEDS: TAMSULOSIN 0.4 MG CAPSULE PO SCH (11:53)
[2021-11-29] MEDS: FINASTERIDE 5 MG TABLET PO SCH (11:53)
[2021-11-29] MEDS: MULTIVITAMIN W/MINERALS TABLET PO SCH (11:53)
[2021-11-29] MEDS: CALCIUM CARBONATE CHEW 500 MG TABLET PO SCH ×2 (11:53→20:43)
[2021-11-29] MEDS: DOCUSATE SODIUM 250 MG CAPSULE PO SCH (11:55)
[2021-11-29] MEDS: SENNA 8.6 MG TABLET PO SCH (11:55)
--- NOTE | 2021-11-29 14:42 | PROVIDER PROGRESS NOTE ---
Assessment/Plan - Problem List (1) Closed right hip fracture Qualifiers: Encounter type: subsequent encounter Assessment/Plan: 11/29 pt is stable, pt is pending for terminal carman care placement. consult with social services technician for placement. 11/26 pt feel comfortable and stable. pt is pending for terminal carman care placement 11/25 pt is comfortable, eat his whole breakfast. pt is pending for custodial care placement, social services technician was consulted for that 11/24 pt is comfortable, enjoy his lunch, and ask when he can go to nurse facility. pt is pending for placement, social services technician was consulted for that. continue pain control, lovenox for DVT prophylaxis, continue PT/OT 11/23 pt had right hip fracture repaired, then pt had PT/OT evaluation and treatment. per pt's family, pt is planned to d/c to terminal carman care. social services technician was consulted for placement (2) COVID-19 11/29 pt's retest of Covid 19 became negative now. pt has been no respiratory distress in the hospital course. Pt was newly diagnosed as Covid (+) on 11/11/2021 after he was tested in prep aration for discharge. Patient was asymptomatic without fever, cough, stable O2 sat without respiratory distress, so pt was not treated for Covid 19. (3) Seizure disorder Assessment/Plan: Stable. No further seizures On Keppra 1000 mg p.o. twice daily and Lamictal 200 mg p.o. twice daily. Phenytoin 300 mg p.o. daily and 400 mg p.o. every afternoon. Topamax 50 mg p.o. twice daily. Also PRN Ativan for acute seizure (4) History of coronary artery disease Assessment/Plan: Stable, On metoprolol succinate 12.5 mg p.o. twice daily. Aspirin 81 mg p.o. daily. Atorvastatin 20 mg p.o. every afternoon (5) Type 2 diabetes mellitus stable, continue carb controlled diet, glucose checks, sliding scale Insulin coverage, Lantus dosing, hypoglycemia protocol. 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 He is at his baseline. 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 (7) BPH Continue Flonax and Proscar - Current Meds Current Meds: Current Medications Generic Name Dose Route Start Last Admin Trade Name Freq PRN Reason Stop Dose Admin Acetaminophen 650 mg 11/06/21 21:18 11/22/21 08:05 Acetaminophen 325 Mg Tablet PO 650 mg Q4HR PRN Administration Pain 1 to 4 Aspirin 81 mg 11/26/21 12:00 11/29/21 11:53 Aspirin Ec 81 Mg Tablet PO 81 mg 1200 JAKE Administration Atorvastatin Calcium 20 mg 11/06/21 23:00 11/28/21 20:09 Atorvastatin 10 Mg Tablet PO 20 mg QPM JAKE Administration Calcium Carbonate/Glycine 500 mg 11/25/21 19:00 11/29/21 11:53 Calcium Carbonate Chew 500 Mg Tablet PO 500 mg 1200,1900 [facility] Administration Docusate Sodium 250 - 500 mg 11/26/21 12:00 11/29/21 11:55 Docusate Sodium 250 Mg Capsule PO Not Given 1200 [facility] Enoxaparin Sodium 40 mg 11/08/21 13:00 11/29/21 09:07 Enoxaparin 40 Mg/0.4 Ml Syringe SUBQ 40 mg DAILY JAKE Administration Finasteride 5 mg 11/26/21 12:00 11/29/21 11:53 Finasteride 5 Mg Tablet PO 5 mg 1200 [facility] Administration Insulin Aspart 3 - 11 unit 11/09/21 12:00 11/29/21 11:54 Insulin Aspart 300 Unit/3 Ml Pen SUBQ 3 unit 0800,1200,1700,2100 [facility] Administration Protocol Insulin Glargine 10 unit 11/10/21 21:00 11/28/21 20:22 Insulin Glargine 300 Unit/3 Ml Pen SUBQ 10 unit QPM JAKE Administration Lamotrigine 25 mg 11/06/21 22:00 11/29/21 09:13 Lamotrigine 25 Mg Tablet PO 25 mg BID JAKE Administration Lamotrigine 200 mg 11/06/21 22:00 11/29/21 09:12 Lamotrigine 100 Mg Tablet PO 200 mg BID JAKE Administration Levetiracetam 1,000 mg 11/06/21 23:00 11/29/21 09:11 Levetiracetam 250 Mg Tablet PO 1,000 mg BID JAKE Administration Metoprolol Succinate 12.5 mg 11/06/21 22:00 11/29/21 09:12 Metoprolol Succinate 25 Mg Tablet PO 12.5 mg BID JAKE Administration Multi-Ingredient Ointment 1 applic 11/28/21 07:29 11/28/21 10:01 Zinc Oxide 20% Oint 30 Gm Tube TOP 1 applic PRN PRN Administration Skin Care Multivitamins/Minerals 1 tab 11/25/21 12:00 11/29/21 11:53 Multivitamin W/Minerals Tablet PO 1 tab 1200 JAKE Administration Ondansetron HCl 4 mg 11/06/21 21:18 11/24/21 13:08 Ondansetron Odt 4 Mg Tablet TL 4 mg Q6HR PRN Administration Nausea / Vomiting Ondansetron HCl 4 mg 11/06/21 21:18 11/24/21 22:43 Ondansetron 4 Mg/2 Ml Vial IVP 4 mg Q6HR PRN Administration Nausea / Vomiting Oxycodone HCl 10 mg 11/06/21 21:18 11/22/21 08:07 Oxycodone 5 Mg Tablet PO 10 mg Q4HR PRN Administration Pain 8 to 10 Phenytoin Sodium 300 mg 11/07/21 09:00 11/29/21 09:10 Phenytoin Er 100 Mg Capsule PO 300 mg DAILY JAKE Administration Phenytoin Sodium 400 mg 11/06/21 23:00 11/28/21 20:08 Phenytoin Er 100 Mg Capsule PO 400 mg QPM JAKE Administration Polyethylene Glycol 17 gm 11/26/21 12:00 11/29/21 11:53 Polyethylene Glycol 3350 17 Gm Packet PO 17 gm 1200 JAKE Administration Senna 8.6 - 17.2 mg 11/26/21 12:00 11/29/21 11:55 Senna 8.6 Mg Tablet PO Not Given 1200 JAKE Sodium Chloride 10 ml 11/06/21 21:18 11/08/21 16:44 Sodium Chloride Flush 0.9% 10 Ml Syringe IVP 10 ml PRN PRN Administration NEEDED PER PROVIDER ORDERS Sodium Chloride 10 ml 11/07/21 01:00 11/29/21 09:13 Sodium Chloride Flush 0.9% 10 Ml Syringe IVP 10 ml 0100,0900,1700 JAKE Administration Tamsulosin HCl 0.4 mg 11/26/21 12:00 11/29/21 11:53 Tamsulosin 0.4 Mg Capsule PO 0.4 mg 1200 JAKE Administration Topiramate 50 mg 11/06/21 23:00 11/29/21 09:09 Topiramate 25 Mg Tablet PO 50 mg BID JAKE Administration - Lab Result Fish Bone Diagrams: 11/28/21 05:35 11/28/21 05:35 Subjective - Subjective Patient Reports: Resting Comfortably Objective Vital Signs: Vital Signs - 24 hr 11/28/21 11/28/21 11/29/21 15:53 20:04 00:47 Temperature 36.5 C 36.5 C Heart Rate [ 64 72 74 Brachial] Respiratory 19 18 Rate Blood Pressure 116/68 110/62 128/68 [Right Brachial artery] O2 Saturation 99 95 11/29/21 08:00 Temperature 36.5 C Heart Rate [ 61 Brachial] Respiratory 18 Rate Blood Pressure 110/65 [Right Brachial artery] O2 Saturation 99 Oxygen O2 Source [With Activity] Room air O2 Source Room air I&O (Last 24 Hrs): Intake and Output Totals x24h 11/27/21 11/28/21 11/29/21 23:59 23:59 23:59 Intake Total 1328 2270 480 Output Total 250 Balance 1328 2020 480 General: Alert, No acute distress HEENT: Atraumatic Neck: Supple Lymphatic: no adenopathy Neuro: Alert, Non Focal Cardiovascular: Regular rate, Normal S1, Normal S2 Respiratory: Chest non-tender, No respiratory distress Abdomen: Normal bowel sounds, Soft Extremities: Normal pulses - Results Results: Laboratory Results WBC 6.7 x10^3/uL (4.8-10.8) 11/28/21 05:35 RBC 4.15 10^6/uL (4.70-6.10) L 11/28/21 05:35 Hgb 12.4 g/dL (14.0-18.0) L 11/28/21 05:35 Hct 38.3 % (42.0-52.0) L 11/28/21 05:35 MCV 92.3 fL (80.0-94.0) 11/28/21 05:35 MCH 29.9 pg (27.0-31.0) 11/28/21 05:35 MCHC 32.4 g/dL (32.0-36.0) 11/28/21 05:35 RDW 14.0 % (12.0-15.0) 11/28/21 05:35 Plt Count 544 10^3/uL (130-450) H 11/28/21 05:35 MPV 8.8 fL (7.4-11.4) 11/28/21 05:35 Neut # (Auto) 3.7 10^3/uL (1.5-6.6) 11/28/21 05:35 Lymph # (Auto) 1.6 10^3/uL (1.5-3.5) 11/28/21 05:35 Glascock # (Auto) 0.7 10^3/uL (0.0-1.0) 11/28/21 05:35 Eos # (Auto) 0.6 10^3/uL (0.0-0.7) 11/28/21 05:35 Baso # (Auto) 0.1 10^3/uL (0.0-0.1) 11/28/21 05:35 Absolute Nucleated RBC 0.00 x10^3/uL 11/28/21 05:35 Nucleated RBC % 0.0 /100WBC 11/28/21 05:35 PT 11.7 secs (9.9-12.6) 11/06/21 21:20 INR 1.1 (0.8-1.2) 11/06/21 21:20 APTT 25.3 secs (24.9-33.3) 11/06/21 21:20 Sodium 134 mmol/L (135-145) L 11/28/21 05:35 Potassium 3.9 mmol/L (3.5-5.0) 11/28/21 05:35 Chloride 102 mmol/L (101-111) 11/28/21 05:35 Carbon Dioxide 26 mmol/L (21-32) 11/28/21 05:35 Anion Gap 6.0 (6-13) 11/28/21 05:35 BUN 22 mg/dL (6-20) H 11/28/21 05:35 Creatinine 1.0 mg/dL (0.6-1.2) 11/28/21 05:35 Estimated GFR (MDRD) 73 (>89) L 11/28/21 05:35 Glucose 96 mg/dL (70-100) 11/28/21 05:35 POC Whole Bld Glucose 150 mg/dL (70 - 100) H 11/29/21 11:23 Estimat Average Glucose 126 mg/dL (70-100) H 11/08/21 06:45 Hemoglobin A1c % 6.0 % (4.27-6.07) 11/08/21 06:45 Calcium 8.7 mg/dL (8.5-10.3) 11/28/21 05:35 Total Bilirubin 0.5 mg/dL (0.2-1.0) 11/06/21 21:20 AST 35 IU/L (10-42) 11/06/21 21:20 ALT 39 IU/L (10-60) 11/06/21 21:20 Alkaline Phosphatase 91 IU/L (42-121) 11/06/21 21:20 Total Protein 8.7 g/dL (6.7-8.2) H 11/06/21 21:20 Albumin 4.4 g/dL (3.2-5.5) 11/06/21 21:20 Globulin 4.3 g/dL (2.1-4.2) H 11/06/21 21:20 Albumin/Globulin Ratio 1.0 (1.0-2.2) 11/06/21 21:20 Lipase 38 U/L (22-51) 11/06/21 21:20 25-OH Vitamin D Total 15 ng/mL (30-100) L 11/10/21 11:14 Urine Color DARK YELLOW 11/06/21 21:12 Urine Clarity CLEAR (CLEAR) 11/06/21 21:12 Urine pH 6.0 PH (5.0-7.5) 11/06/21 21:12 Ur Specific Ute 1.020 (1.002-1.030) 11/06/21 21:12 Urine Protein TRACE mg/dL (NEGATIVE) 11/06/21 21:12 Urine Glucose (UA) 100 mg/dL (NEGATIVE) H 11/06/21 21:12 Urine Ketones NEGATIVE mg/dL (NEGATIVE) 11/06/21 21:12 Urine Occult Blood NEGATIVE (NEGATIVE) 11/06/21 21:12 Urine Nitrite NEGATIVE (NEGATIVE) 11/06/21 21:12 Urine Bilirubin NEGATIVE (NEGATIVE) 11/06/21 21:12 Urine Urobilinogen 0.2 (NORMAL) E.U./dL (NORMAL) 11/06/21 21:12 Ur Leukocyte Esterase NEGATIVE (NEGATIVE) 11/06/21 21:12 Ur Microscopic Review NOT INDICATED 11/06/21 21:12 Urine Culture Comments NOT INDICATED 11/06/21 21:12 Nasal Adenovirus (PCR) NOT DETECTED 11/26/21 13:30 Nasal B. parapertussis DNA (PCR) NOT DETECTED 11/26/21 13:30 Nasal Coronavir 229E PCR NOT DETECTED 11/26/21 13:30 Nasal Coronavir HKU1 PCR NOT DETECTED 11/26/21 13:30 Nasal Coronavir NL63 PCR NOT DETECTED 11/26/21 13:30 Nasal Coronavir OC43 PCR NOT DETECTED 11/26/21 13:30 Nasal Enterovir/Rhinovir PCR NOT DETECTED 11/26/21 13:30 Nasal Influenza B PCR NOT DETECTED 11/26/21 13:30 Nasal Influenza A PCR NOT DETECTED 11/26/21 13:30 Nasal Parainfluen 1 PCR NOT DETECTED 11/26/21 13:30 Nasal Parainfluen 2 PCR NOT DETECTED 11/26/21 13:30 Nasal Parainfluen 3 PCR NOT DETECTED 11/26/21 13:30 Nasal Parainfluen 4 PCR NOT DETECTED 11/26/21 13:30 Nasal RSV (PCR) NOT DETECTED 11/26/21 13:30 Nasal B.pertussis DNA PCR NOT DETECTED 11/26/21 13:30 Nasal C.pneumoniae (PCR) NOT DETECTED 11/26/21 13:30 Akhil Human Metapneumo PCR NOT DETECTED 11/26/21 13:30 Nasal M.pneumoniae (PCR) NOT DETECTED 11/26/21 13:30 Nasal SARS-CoV-2 (PCR) NOT DETECTED 11/26/21 13:30 Phenytoin 28.5 ug/mL 11/24/21 13:34 Lamotrigine 2.5 mcg/mL (4.0-18.0) L 11/08/21 08:39 Levetiracetam 17.6 mcg/mL 11/08/21 08:39 - Procedures Procedures: Procedures EXCISION OF ASCENDING COLON, ENDO (03/29/17) EXCISION OF DESCENDING COLON, ENDO (03/29/17) EXCISION OF RECTUM, ENDO (03/29/17) INSERTION OF INFUSION DEV INTO SUP VENA CAVA, PERC APPROACH (11/05/17) ABX Reporting Has patient been on IV antibiotics over the past 48 hours?: No Current Medications - Current Medications Current Medications: Active Medications Acetaminophen (Acetaminophen 325 Mg Tablet) 650 mg PO Q4HR PRN PRN Reason: Pain 1 to 4 Last Admin: 11/22/21 08:05 Dose: 650 mg Aspirin (Aspirin Ec 81 Mg Tablet) 81 mg PO 1200 [facility] Last Admin: 11/29/21 11:53 Dose: 81 mg Atorvastatin Calcium (Atorvastatin 10 Mg Tablet) 20 mg PO QPM [facility] Last Admin: 11/28/21 20:09 Dose: 20 mg Calcium Carbonate/Glycine (Calcium Carbonate Chew 500 Mg Tablet) 500 mg PO 1200,1900 [facility] Last Admin: 11/29/21 11:53 Dose: 500 mg Docusate Sodium (Docusate Sodium 250 Mg Capsule) 250 - 500 mg PO 1200 [facility] Last Admin: 11/29/21 11:55 Dose: Not Given Enoxaparin Sodium (Enoxaparin 40 Mg/0.4 Ml Syringe) 40 mg SUBQ DAILY [facility] Last Admin: 11/29/21 09:07 Dose: 40 mg Finasteride (Finasteride 5 Mg Tablet) 5 mg PO 1200 [facility] Last Admin: 11/29/21 11:53 Dose: 5 mg Insulin Aspart (Insulin Aspart 300 Unit/3 Ml Pen) 3 - 11 unit SUBQ 0800,1200,1700,2100 [facility]; Protocol Last Admin: 11/29/21 11:54 Dose: 3 unit Insulin Glargine (Insulin Glargine 300 Unit/3 Ml Pen) 10 unit SUBQ QPM [facility] Last Admin: 11/28/21 20:22 Dose: 10 unit Lamotrigine (Lamotrigine 25 Mg Tablet) 25 mg PO BID [facility] Last Admin: 11/29/21 09:13 Dose: 25 mg Lamotrigine (Lamotrigine 100 Mg Tablet) 200 mg PO BID [facility] Last Admin: 11/29/21 09:12 Dose: 200 mg Levetiracetam (Levetiracetam 250 Mg Tablet) 1,000 mg PO BID [facility] Last Admin: 11/29/21 09:11 Dose: 1,000 mg Lorazepam (Lorazepam 2 Mg/Ml Vial) 2 mg IVP Q2H PRN PRN Reason: Seizure Metoprolol Succinate (Metoprolol Succinate 25 Mg Tablet) 12.5 mg PO BID [facility] Last Admin: 11/29/21 09:12 Dose: 12.5 mg Multi-Ingredient Ointment (Zinc Oxide 20% Oint 30 Gm Tube) 1 applic TOP PRN PRN PRN Reason: Skin Care Last Admin: 11/28/21 10:01 Dose: 1 applic Multivitamins/Minerals (Multivitamin W/Minerals Tablet) 1 tab PO 1200 [facility] Last Admin: 11/29/21 11:53 Dose: 1 tab Ondansetron HCl (Ondansetron Odt 4 Mg Tablet) 4 mg TL Q6HR PRN PRN Reason: Nausea / Vomiting Last Admin: 11/24/21 13:08 Dose: 4 mg Ondansetron HCl (Ondansetron 4 Mg/2 Ml Vial) 4 mg IVP Q6HR PRN PRN Reason: Nausea / Vomiting Last Admin: 11/24/21 22:43 Dose: 4 mg Oxycodone HCl (Oxycodone 5 Mg Tablet) 10 mg PO Q4HR PRN PRN Reason: Pain 8 to 10 Last Admin: 11/22/21 08:07 Dose: 10 mg Phenytoin Sodium (Phenytoin Er 100 Mg Capsule) 300 mg PO DAILY [facility] Last Admin: 11/29/21 09:10 Dose: 300 mg Phenytoin Sodium (Phenytoin Er 100 Mg Capsule) 400 mg PO QPM [facility] Last Admin: 11/28/21 20:08 Dose: 400 mg Polyethylene Glycol (Polyethylene Glycol 3350 17 Gm Packet) 17 gm PO 1200 [facility] Last Admin: 11/29/21 11:53 Dose: 17 gm Senna (Senna 8.6 Mg Tablet) 8.6 - 17.2 mg PO 1200 [facility] Last Admin: 11/29/21 11:55 Dose: Not Given Sodium Chloride (Sodium Chloride Flush 0.9% 10 Ml Syringe) 10 ml IVP PRN PRN PRN Reason: NEEDED PER PROVIDER ORDERS Last Admin: 11/08/21 16:44 Dose: 10 ml Sodium Chloride (Sodium Chloride Flush 0.9% 10 Ml Syringe) 10 ml IVP 0100,0900,1700 [facility] Last Admin: 11/29/21 09:13 Dose: 10 ml Tamsulosin HCl (Tamsulosin 0.4 Mg Capsule) 0.4 mg PO 1200 [facility] Last Admin: 11/29/21 11:53 Dose: 0.4 mg Topiramate (Topiramate 25 Mg Tablet) 50 mg PO BID [facility] Last Admin: 11/29/21 09:09 Dose: 50 mg Phenytoin Sodium Extended [Dilantin] 300 mg PO DAILY 05/18/13 [id number] ER [Glucotrol Xl] 2.5 mg PO DAILY 12/19/17 Metoprolol Succinate 12.5 mg PO BID 09/04/18
[2021-11-29] MEDS: ATORVASTATIN 10 MG TABLET PO SCH (20:43)
[2021-11-29] MEDS: INSULIN GLARGINE 300 UNIT/3 ML PEN SUBQ SCH (20:45)
[2021-11-30] MEDS: SODIUM CHLORIDE FLUSH 0.9% 10 ML SYRINGE IVP SCH ×3 (05:57→17:30)
[2021-11-30] MEDS: INSULIN ASPART 300 UNIT/3 ML PEN SUBQ SCH ×4 (07:24→21:58)
[2021-11-30] MEDS: lamoTRIgine 25 MG TABLET PO SCH ×2 (09:17→21:58)
[2021-11-30] MEDS: TOPIRAMATE 25 MG TABLET PO SCH ×2 (09:17→21:57)
[2021-11-30] MEDS: PHENYTOIN ER 100 MG CAPSULE PO SCH ×2 (09:17→21:57)
[2021-11-30] MEDS: levETIRAcetam 250 MG TABLET PO SCH ×2 (09:18→21:58)
[2021-11-30] MEDS: ENOXAPARIN 40 MG/0.4 ML SYRINGE SUBQ SCH (09:18)
[2021-11-30] MEDS: lamoTRIgine 100 MG TABLET PO SCH ×2 (09:18→21:57)
[2021-11-30] MEDS: METOPROLOL SUCCINATE 25 MG TABLET PO SCH ×2 (09:19→21:57)
[2021-11-30] MEDS: SENNA 8.6 MG TABLET PO SCH (11:24)
[2021-11-30] MEDS: FINASTERIDE 5 MG TABLET PO SCH (11:24)
[2021-11-30] MEDS: TAMSULOSIN 0.4 MG CAPSULE PO SCH (11:24)
[2021-11-30] MEDS: DOCUSATE SODIUM 250 MG CAPSULE PO SCH (11:24)
[2021-11-30] MEDS: MULTIVITAMIN W/MINERALS TABLET PO SCH (11:24)
[2021-11-30] MEDS: CALCIUM CARBONATE CHEW 500 MG TABLET PO SCH ×2 (11:24→19:39)
[2021-11-30] MEDS: ASPIRIN EC 81 MG TABLET PO SCH (11:24)
[2021-11-30] MEDS: polyethylene glycoL 3350 17 GM PACKET PO SCH (11:25)
[2021-11-30] MEDS: ONDANSETRON ODT 4 MG TABLET TL PRN (12:48)
--- NOTE | 2021-11-30 13:51 | PROVIDER PROGRESS NOTE ---
Assessment/Plan - Problem List (1) Closed right hip fracture Qualifiers: Encounter type: subsequent encounter Assessment/Plan: 11/30 pt is comfortable rest, stable. 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 consult with protective services social worker for placement. 11/26 pt feel comfortable and stable. 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 pt is pending for placement, protective services social worker was consulted for that. continue pain control, lovenox for DVT prophylaxis, continue PT/OT 11/23 pt had right hip fracture repaired, then pt had PT/OT evaluation and treatment. per pt's family, pt is planned to d/c to residential care. protective services social worker was consulted for placement (2) COVID-19 11/29 pt's retest of Covid 19 became negative now. pt has been no respiratory distress in the hospital course. Pt was newly diagnosed as Covid (+) on 11/11/2021 after he was tested in preparation for discharge. Patient was asymptomatic without fever, cough, stable O2 sat without respiratory distress, so pt was not treated for Covid 19. (3) Seizure disorder Assessment/Plan: Stable. No further seizures On Keppra 1000 mg p.o. twice daily and Lamictal 200 mg p.o. twice daily. Phen ytoin 300 mg p.o. daily and 400 mg p.o. every afternoon. Topamax 50 mg p.o. twice daily. Also PRN Ativan for acute seizure (4) History of coronary artery disease Assessment/Plan: Stable, On metoprolol succinate 12.5 mg p.o. twice daily. Aspirin 81 mg p.o. da uri. Atorvastatin 20 mg p.o. every afternoon (5) Type 2 diabetes mellitus stable, continue carb controlled diet, glucose checks, sliding scale Insulin coverage, Lantus dosing, hypoglycemia protocol. 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 He is at his baseline. 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 (7) BPH Continue Flonax and Proscar - Current Meds Current Meds: Current Medications Generic Name Dose Route Start Last Admin Trade Name Freq PRN Reason Stop Dose Admin Acetaminophen 650 mg 11/06/21 21:18 11/22/21 08:05 Acetaminophen 325 Mg Tablet PO 650 mg Q4HR PRN Administration Pain 1 to 4 Aspirin 81 mg 11/26/21 12:00 11/30/21 11:24 Aspirin Ec 81 Mg Tablet PO 81 mg 1200 JAKE Administration Atorvastatin Calcium 20 mg 11/06/21 23:00 11/29/21 20:43 Atorvastatin 10 Mg Tablet PO 20 mg QPM JKAE Administration Calcium Carbonate/Glycine 500 mg 11/25/21 19:00 11/30/21 11:24 Calcium Carbonate Chew 500 Mg Tablet PO 500 mg 1200,1900 JAKE Administration Docusate Sodium 250 - 500 mg 11/26/21 12:00 11/30/21 11:24 Docusate Sodium 250 Mg Capsule PO 250 mg 1200 [facility] Administration Enoxaparin Sodium 40 mg 11/08/21 13:00 11/30/21 09:18 Enoxaparin 40 Mg/0.4 Ml Syringe SUBQ 40 mg DAILY JAKE Administration Finasteride 5 mg 11/26/21 12:00 11/30/21 11:24 Finasteride 5 Mg Tablet PO 5 mg 1200 [facility] Administration Insulin Aspart 3 - 11 unit 11/09/21 12:00 11/30/21 11:25 Insulin Aspart 300 Unit/3 Ml Pen SUBQ 3 unit 0800,1200,1700,2100 [facility] Administration Protocol Insulin Glargine 10 unit 11/10/21 21:00 11/29/21 20:45 Insulin Glargine 300 Unit/3 Ml Pen SUBQ 10 unit QPM JAKE Administration Lamotrigine 25 mg 11/06/21 22:00 11/30/21 09:17 Lamotrigine 25 Mg Tablet PO 25 mg BID JAKE Administration Lamotrigine 200 mg 11/06/21 22:00 11/30/21 09:18 Lamotrigine 100 Mg Tablet PO 200 mg BID JAKE Administration Levetiracetam 1,000 mg 11/06/21 23:00 11/30/21 09:18 Levetiracetam 250 Mg Tablet PO 1,000 mg BID JAKE Administration Metoprolol Succinate 12.5 mg 11/06/21 22:00 11/30/21 09:19 Metoprolol Succinate 25 Mg Tablet PO 12.5 mg BID JAKE Administration Multi-Ingredient Ointment 1 applic 11/28/21 07:29 11/28/21 10:01 Zinc Oxide 20% Oint 30 Gm Tube TOP 1 applic PRN PRN Administration Skin Care Multivitamins/Minerals 1 tab 11/25/21 12:00 11/30/21 11:24 Multivitamin W/Minerals Tablet PO 1 tab 1200 JAKE Administration Ondansetron HCl 4 mg 11/06/21 21:18 11/30/21 12:48 Ondansetron Odt 4 Mg Tablet TL 4 mg Q6HR PRN Administration Nausea / Vomiting Ondansetron HCl 4 mg 11/06/21 21:18 11/24/21 22:43 Ondansetron 4 Mg/2 Ml Vial IVP 4 mg Q6HR PRN Administration Nausea / Vomiting Oxycodone HCl 10 mg 11/06/21 21:18 11/22/21 08:07 Oxycodone 5 Mg Tablet PO 10 mg Q4HR PRN Administration Pain 8 to 10 Phenytoin Sodium 300 mg 11/07/21 09:00 11/30/21 09:17 Phenytoin Er 100 Mg Capsule PO 300 mg DAILY JAKE Administration Phenytoin Sodium 400 mg 11/06/21 23:00 11/29/21 20:44 Phenytoin Er 100 Mg Capsule PO 400 mg QPM JAKE Administration Polyethylene Glycol 17 gm 11/26/21 12:00 11/30/21 11:25 Polyethylene Glycol 3350 17 Gm Packet PO 17 gm 1200 JAKE Administration Senna 8.6 - 17.2 mg 11/26/21 12:00 11/30/21 11:24 Senna 8.6 Mg Tablet PO 8.6 mg 1200 JKAE Administration Sodium Chloride 10 ml 11/06/21 21:18 11/08/21 16:44 Sodium Chloride Flush 0.9% 10 Ml Syringe IVP 10 ml PRN PRN Administration NEEDED PER PROVIDER ORDERS Sodium Chloride 10 ml 11/07/21 01:00 11/30/21 11:47 Sodium Chloride Flush 0.9% 10 Ml Syringe IVP Not Given 0100,0900,1700 [facility] Tamsulosin HCl 0.4 mg 11/26/21 12:00 11/30/21 11:24 Tamsulosin 0.4 Mg Capsule PO 0.4 mg 1200 JAKE Administration Topiramate 50 mg 11/06/21 23:00 11/30/21 09:17 Topiramate 25 Mg Tablet PO 50 mg BID JAKE Administration - Lab Result Fish Bone Diagrams: 11/28/21 05:35 11/28/21 05:35 Subjective - Subjective Patient Reports: Resting Comfortably Objective Vital Signs: Vital Signs - 24 hr 11/29/21 11/29/21 11/29/21 16:16 20:41 23:48 Temperature 36.5 C 36.4 C L Heart Rate [ 68 69 75 Brachial] Respiratory 18 16 Rate Blood Pressure 98/62 106/67 109/56 L [Right Brachial artery] O2 Saturation 99 99 11/30/21 11/30/21 07:27 09:16 Temperature 36.7 C Heart Rate [ 71 82 Brachial] Respiratory 16 Rate Blood Pressure 118/60 114/70 [Right Brachial artery] O2 Saturation 94 Oxygen O2 Source [With Activity] Room air O2 Source Room air I&O (Last 24 Hrs): Intake and Output Totals x24h 11/28/21 11/29/21 11/30/21 23:59 23:59 23:59 Intake Total 2270 830 240 Output Total 250 150 Balance 2020 830 90 General: Alert, No acute distress HEENT: Atraumatic Neck: Supple Lymphatic: no adenopathy Neuro: Alert, Non Focal Cardiovascular: Regular rate, Normal S1, Normal S2 Respiratory: Chest non-tender, No respiratory distress Abdomen: Normal bowel sounds, Soft Extremities: Normal pulses - Results Results: Laboratory Results WBC 6.7 x10^3/uL (4.8-10.8) 11/28/21 05:35 RBC 4.15 10^6/uL (4.70-6.10) L 11/28/21 05:35 Hgb 12.4 g/dL (14.0-18.0) L 11/28/21 05:35 Hct 38.3 % (42.0-52.0) L 11/28/21 05:35 MCV 92.3 fL (80.0-94.0) 11/28/21 05:35 MCH 29.9 pg (27.0-31.0) 11/28/21 05:35 MCHC 32.4 g/dL (32.0-36.0) 11/28/21 05:35 RDW 14.0 % (12.0-15.0) 11/28/21 05:35 Plt Count 544 10^3/uL (130-450) H 11/28/21 05:35 MPV 8.8 fL (7.4-11.4) 11/28/21 05:35 Neut # (Auto) 3.7 10^3/uL (1.5-6.6) 11/28/21 05:35 Lymph # (Auto) 1.6 10^3/uL (1.5-3.5) 11/28/21 05:35 [place] # (Auto) 0.7 10^3/uL (0.0-1.0) 11/28/21 05:35 Eos # (Auto) 0.6 10^3/uL (0.0-0.7) 11/28/21 05:35 Baso # (Auto) 0.1 10^3/uL (0.0-0.1) 11/28/21 05:35 Absolute Nucleated RBC 0.00 x10^3/uL 11/28/21 05:35 Nucleated RBC % 0.0 /100WBC 11/28/21 05:35 PT 11.7 secs (9.9-12.6) 11/06/21 21:20 INR 1.1 (0.8-1.2) 11/06/21 21:20 APTT 25.3 secs (24.9-33.3) 11/06/21 21:20 Sodium 134 mmol/L (135-145) L 11/28/21 05:35 Potassium 3.9 mmol/L (3.5-5.0) 11/28/21 05:35 Chloride 102 mmol/L (101-111) 11/28/21 05:35 Carbon Dioxide 26 mmol/L (21-32) 11/28/21 05:35 Anion Gap 6.0 (6-13) 11/28/21 05:35 BUN 22 mg/dL (6-20) H 11/28/21 05:35 Creatinine 1.0 mg/dL (0.6-1.2) 11/28/21 05:35 Estimated GFR (MDRD) 73 (>89) L 11/28/21 05:35 Glucose 96 mg/dL (70-100) 11/28/21 05:35 POC Whole Bld Glucose 145 mg/dL (70 - 100) H 11/30/21 11:21 Estimat Average Glucose 126 mg/dL (70-100) H 11/08/21 06:45 Hemoglobin A1c % 6.0 % (4.27-6.07) 11/08/21 06:45 Calcium 8.7 mg/dL (8.5-10.3) 11/28/21 05:35 Total Bilirubin 0.5 mg/dL (0.2-1.0) 11/06/21 21:20 AST 35 IU/L (10-42) 11/06/21 21:20 ALT 39 IU/L (10-60) 11/06/21 21:20 Alkaline Phosphatase 91 IU/L (42-121) 11/06/21 21:20 Total Protein 8.7 g/dL (6.7-8.2) H 11/06/21 21:20 Albumin 4.4 g/dL (3.2-5.5) 11/06/21 21:20 Globulin 4.3 g/dL (2.1-4.2) H 11/06/21 21:20 Albumin/Globulin Ratio 1.0 (1.0-2.2) 11/06/21 21:20 Lipase 38 U/L (22-51) 11/06/21 21:20 25-OH Vitamin D Total 15 ng/mL (30-100) L 11/10/21 11:14 Urine Color DARK YELLOW 11/06/21 21:12 Urine Clarity CLEAR (CLEAR) 11/06/21 21:12 Urine pH 6.0 PH (5.0-7.5) 11/06/21 21:12 Ur Specific [place] 1.020 (1.002-1.030) 11/06/21 21:12 Urine Protein TRACE mg/dL (NEGATIVE) 11/06/21 21:12 Urine Glucose (UA) 100 mg/dL (NEGATIVE) H 11/06/21 21:12 Urine Ketones NEGATIVE mg/dL (NEGATIVE) 11/06/21 21:12 Urine Occult Blood NEGATIVE (NEGATIVE) 11/06/21 21:12 Urine Nitrite NEGATIVE (NEGATIVE) 11/06/21 21:12 Urine Bilirubin NEGATIVE (NEGATIVE) 11/06/21 21:12 Urine Urobilinogen 0.2 (NORMAL) E.U./dL (NORMAL) 11/06/21 21:12 Ur Leukocyte Esterase NEGATIVE (NEGATIVE) 11/06/21 21:12 Ur Microscopic Review NOT INDICATED 11/06/21 21:12 Urine Culture Comments NOT INDICATED 11/06/21 21:12 Nasal Adenovirus (PCR) NOT DETECTED 11/26/21 13:30 Nasal B. parapertussis DNA (PCR) NOT DETECTED 11/26/21 13:30 Nasal Coronavir 229E PCR NOT DETECTED 11/26/21 13:30 Nasal Coronavir HKU1 PCR NOT DETECTED 11/26/21 13:30 Nasal Coronavir NL63 PCR NOT DETECTED 11/26/21 13:30 Nasal Coronavir OC43 PCR NOT DETECTED 11/26/21 13:30 Nasal Enterovir/Rhinovir PCR NOT DETECTED 11/26/21 13:30 Nasal Influenza B PCR NOT DETECTED 11/26/21 13:30 Nasal Influenza A PCR NOT DETECTED 11/26/21 13:30 Nasal Parainfluen 1 PCR NOT DETECTED 11/26/21 13:30 Nasal Parainfluen 2 PCR NOT DETECTED 11/26/21 13:30 Nasal Parainfluen 3 PCR NOT DETECTED 11/26/21 13:30 Nasal Parainfluen 4 PCR NOT DETECTED 11/26/21 13:30 Nasal RSV (PCR) NOT DETECTED 11/26/21 13:30 Nasal B.pertussis DNA PCR NOT DETECTED 11/26/21 13:30 Nasal C.pneumoniae (PCR) NOT DETECTED 11/26/21 13:30 Akhil Human Metapneumo PCR NOT DETECTED 11/26/21 13:30 Nasal M.pneumoniae (PCR) NOT DETECTED 11/26/21 13:30 Nasal SARS-CoV-2 (PCR) NOT DETECTED 11/26/21 13:30 Phenytoin 28.5 ug/mL 11/24/21 13:34 Lamotrigine 2.5 mcg/mL (4.0-18.0) L 11/08/21 08:39 Levetiracetam 17.6 mcg/mL 11/08/21 08:39 - Procedures Procedures: Procedures EXCISION OF ASCENDING COLON, ENDO (03/29/17) EXCISION OF DESCENDING COLON, ENDO (03/29/17) EXCISION OF RECTUM, ENDO (03/29/17) INSERTION OF INFUSION DEV INTO SUP VENA CAVA, PERC APPROACH (11/05/17) ABX Reporting Has patient been on IV antibiotics over the past 48 hours?: No Current Medications - Current Medications Current Medications: Active Medications Acetaminophen (Acetaminophen 325 Mg Tablet) 650 mg PO Q4HR PRN PRN Reason: Pain 1 to 4 Last Admin: 11/22/21 08:05 Dose: 650 mg Aspirin (Aspirin Ec 81 Mg Tablet) 81 mg PO 1200 [facility] Last Admin: 11/30/21 11:24 Dose: 81 mg Atorvastatin Calcium (Atorvastatin 10 Mg Tablet) 20 mg PO QPM [facility] Last Admin: 11/29/21 20:43 Dose: 20 mg Calcium Carbonate/Glycine (Calcium Carbonate Chew 500 Mg Tablet) 500 mg PO 1200,1900 [facility] Last Admin: 11/30/21 11:24 Dose: 500 mg Docusate Sodium (Docusate Sodium 250 Mg Capsule) 250 - 500 mg PO 1200 [facility] Last Admin: 11/30/21 11:24 Dose: 250 mg Enoxaparin Sodium (Enoxaparin 40 Mg/0.4 Ml Syringe) 40 mg SUBQ DAILY [facility] Last Admin: 11/30/21 09:18 Dose: 40 mg Finasteride (Finasteride 5 Mg Tablet) 5 mg PO 1200 [facility] Last Admin: 11/30/21 11:24 Dose: 5 mg Insulin Aspart (Insulin Aspart 300 Unit/3 Ml Pen) 3 - 11 unit SUBQ 0800,1200,17 00,2100 [facility]; Protocol Last Admin: 11/30/21 11:25 Dose: 3 unit Insulin Glargine (Insulin Glargine 300 Unit/3 Ml Pen) 10 unit SUBQ QPM [facility] Last Admin: 11/29/21 20:45 Dose: 10 unit Lamotrigine (Lamotrigine 25 Mg Tablet) 25 mg PO BID [facility] Last Admin: 11/30/21 09:17 Dose: 25 mg Lamotrigine (Lamotrigine 100 Mg Tablet) 200 mg PO BID [facility] Last Admin: 11/30/21 09:18 Dose: 200 mg Levetiracetam (Levetiracetam 250 Mg Tablet) 1,000 mg PO BID [facility] Last Admin: 11/30/21 09:18 Dose: 1,000 mg Lorazepam (Lorazepam 2 Mg/Ml Vial) 2 mg IVP Q2H PRN PRN Reason: Seizure Metoprolol Succinate (Metoprolol Succinate 25 Mg Tablet) 12.5 mg PO BID [facility] Last Admin: 11/30/21 09:19 Dose: 12.5 mg Multi-Ingredient Ointment (Zinc Oxide 20% Oint 30 Gm Tube) 1 applic TOP PRN PRN PRN Reason: Skin Care Last Admin: 11/28/21 10:01 Dose: 1 applic Multivitamins/Minerals (Multivitamin W/Minerals Tablet) 1 tab PO 1200 [facility] Last Admin: 11/30/21 11:24 Dose: 1 tab Ondansetron HCl (Ondansetron Odt 4 Mg Tablet) 4 mg TL Q6HR PRN PRN Reason: Nausea / Vomiting Last Admin: 11/30/21 12:48 Dose: 4 mg Ondansetron HCl (Ondansetron 4 Mg/2 Ml Vial) 4 mg IVP Q6HR PRN PRN Reason: Nausea / Vomiting Last Admin: 11/24/21 22:43 Dose: 4 mg Oxycodone HCl (Oxycodone 5 Mg Tablet) 10 mg PO Q4HR PRN PRN Reason: Pain 8 to 10 Last Admin: 11/22/21 08:07 Dose: 10 mg Phenytoin Sodium (Phenytoin Er 100 Mg Capsule) 300 mg PO DAILY [facility] Last Admin: 11/30/21 09:17 Dose: 300 mg Phenytoin Sodium (Phenytoin Er 100 Mg Capsule) 400 mg PO QPM [facility] Last Admin: 11/29/21 20:44 Dose: 400 mg Polyethylene Glycol (Polyethylene Glycol 3350 17 Gm Packet) 17 gm PO 1200 [facility] Last Admin: 11/30/21 11:25 Dose: 17 gm Senna (Senna 8.6 Mg Tablet) 8.6 - 17.2 mg PO 1200 [facility] Last Admin: 11/30/21 11:24 Dose: 8.6 mg Sodium Chloride (Sodium Chloride Flush 0.9% 10 Ml Syringe) 10 ml IVP PRN PRN PRN Reason: NEEDED PER PROVIDER ORDERS Last Admin: 11/08/21 16:44 Dose: 10 ml Sodium Chloride (Sodium Chloride Flush 0.9% 10 Ml Syringe) 10 ml IVP 0100,0900,1700 [facility] Last Admin: 11/30/21 11:47 Dose: Not Given Tamsulosin HCl (Tamsulosin 0.4 Mg Capsule) 0.4 mg PO 1200 [facility] Last Admin: 11/30/21 11:24 Dose: 0.4 mg Topiramate (Topiramate 25 Mg Tablet) 50 mg PO BID [facility] Last Admin: 11/30/21 09:17 Dose: 50 mg Phenytoin Sodium Extended [Dilantin] 300 mg PO DAILY 05/18/13 [id number] ER [Glucotrol Xl] 2.5 mg PO DAILY 12/19/17 Metoprolol Succinate 12.5 mg PO BID 09/04/18
[2021-11-30] MEDS: ATORVASTATIN 10 MG TABLET PO SCH (21:57)
[2021-11-30] MEDS: INSULIN GLARGINE 300 UNIT/3 ML PEN SUBQ SCH (21:59)
[2021-12-01] MEDS: SODIUM CHLORIDE FLUSH 0.9% 10 ML SYRINGE IVP SCH ×4 (00:37→23:42)
[2021-12-01 06:07] LABS: BASOPHILS # (AUTO) 0.1 10^3/uL (0.0-0.1); BASOPHILS % (AUTO) 0.8 %; EOSINOPHILS # (AUTO) 0.6 10^3/uL (0.0-0.7); EOSINOPHILS % (AUTO) 8.9 %; HGB - HEMOGLOBIN 12.7 g/dL (14.0-18.0); LYMPHOCYTES # (AUTO) 1.7 10^3/uL (1.5-3.5); LYMPHOCYTES % (AUTO) 27.9 %; MEAN CORPUSCULAR HEMOGLOBIN 29.7 pg (27.0-31.0); MEAN CORPUSCULAR HGB CONC 31.8 g/dL (32.0-36.0); MEAN CORPUSCULAR VOLUME 93.5 fL (80.0-94.0); MEAN PLATELET VOLUME 9.1 fL (7.4-11.4); MONOCYTES # (AUTO) 0.6 10^3/uL (0.0-1.0); MONOCYTES % (AUTO) 10.2 %; NEUTROPHILS # (AUTO) 3.2 10^3/uL (1.5-6.6); PLT - PLATELET COUNT 457 10^3/uL (130-450); RED BLOOD COUNT 4.28 10^6/uL (4.70-6.10); RED CELL DISTRIBUTION WIDTH 14.1 % (12.0-15.0); WHITE BLOOD COUNT 6.2 x10^3/uL (4.8-10.8)
[2021-12-01 06:08] LABS: CALCIUM 8.9 mg/dL (8.5-10.3); POTASSIUM 4.2 mmol/L (3.5-5.0)
[2021-12-01] MEDS: INSULIN ASPART 300 UNIT/3 ML PEN SUBQ SCH ×4 (07:37→20:33)
[2021-12-01] MEDS: TOPIRAMATE 25 MG TABLET PO SCH ×2 (09:06→20:31)
[2021-12-01] MEDS: lamoTRIgine 25 MG TABLET PO SCH ×2 (09:06→20:32)
[2021-12-01] MEDS: METOPROLOL SUCCINATE 25 MG TABLET PO SCH ×2 (09:06→20:32)
[2021-12-01] MEDS: PHENYTOIN ER 100 MG CAPSULE PO SCH ×2 (09:06→20:31)
[2021-12-01] MEDS: lamoTRIgine 100 MG TABLET PO SCH ×2 (09:06→20:31)
[2021-12-01] MEDS: levETIRAcetam 250 MG TABLET PO SCH ×2 (09:10→20:31)
[2021-12-01] MEDS: ENOXAPARIN 40 MG/0.4 ML SYRINGE SUBQ SCH (09:16)
[2021-12-01] MEDS: CALCIUM CARBONATE CHEW 500 MG TABLET PO SCH ×2 (12:01→18:19)
[2021-12-01] MEDS: ASPIRIN EC 81 MG TABLET PO SCH (12:01)
[2021-12-01] MEDS: FINASTERIDE 5 MG TABLET PO SCH (12:01)
[2021-12-01] MEDS: SENNA 8.6 MG TABLET PO SCH (12:02)
[2021-12-01] MEDS: TAMSULOSIN 0.4 MG CAPSULE PO SCH (12:02)
[2021-12-01] MEDS: MULTIVITAMIN W/MINERALS TABLET PO SCH (12:02)
[2021-12-01] MEDS: DOCUSATE SODIUM 250 MG CAPSULE PO SCH (12:02)
[2021-12-01] MEDS: polyethylene glycoL 3350 17 GM PACKET PO SCH (12:04)
--- NOTE | 2021-12-01 15:04 | PROVIDER PROGRESS NOTE ---
Assessment/Plan - Problem List (1) Closed right hip fracture Qualifiers: Encounter type: subsequent encounter Assessment/Plan: 12/01 pt is stable, comfortable and eating his lunch. pt is pending for placement 11/30 pt is comfortable rest, stable. pt is pending for placement 11/29 pt is stable, pt is pending for [facility]. consult with medical social worker for placement. 11/26 pt feel comfortable and stable. pt is pending for [facility] 11/25 pt is comfortable, eat his whole breakfast. pt is pending for [facility] placement, medical social worker was consulted for that 11/24 pt is comfortable, enjoy his lunch, and ask when he can go to nurse facility. pt is pending for placement, medical social worker was consulted for that. continue pain control, lovenox for DVT prophylaxis, continue PT/OT 11/23 pt had right hip fracture repaired, then pt had PT/OT evaluation and treatment. per pt's family, pt is planned to d/c to [facility]. medical social worker was consulted for placement (2) COVID-19 11/29 pt's retest of Covid 19 became negative now. pt has been no respiratory distress in the hospital course. Pt was newly diagnosed as Covid (+) on 11/11/2021 after he was tested in preparation for discharge. Patient was asymptomatic without fever, cough, stable O2 sat without respiratory distress, so pt was not treated for Covid 19. (3) Seizure disorder Assessment/Plan: Stable. No further seizures On Keppra 1000 mg p.o. twice daily and Lamictal 200 mg p.o. twice daily. Phenytoin 300 mg p.o. daily and 400 mg p.o. every afternoon. Topamax 50 mg p.o. twice daily. Also PRN Ativan for acute seizure (4) History of coronary artery disease Assessment/Plan: Stable, On metoprolol succinate 12.5 mg p.o. twice daily. Aspirin 81 mg p.o. daily. Atorvastatin 20 mg p.o. every afternoon (5) Type 2 diabetes mellitus stable, continue carb controlled diet, glucose checks, sliding scale Insulin coverage, Lantus dosing, hypoglycemia protocol. 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 He is at his baseline. 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 (7) BPH Continue Flonax and Proscar - Current Meds Current Meds: Current Medications Generic Name Dose Route Start Last Admin Trade Name Tri PRN Reason Stop Dose Admin Acetaminophen 650 mg 11/06/21 21:18 11/22/21 08:05 Acetaminophen 325 Mg Tablet PO 650 mg Q4HR PRN Administration Pain 1 to 4 Aspirin 81 mg 11/26/21 12:00 12/01/21 12:01 Aspirin Ec 81 Mg Tablet PO 81 mg 1200 JAKE Administration Atorvastatin Calcium 20 mg 11/06/21 23:00 11/30/21 21:57 Atorvastatin 10 Mg Tablet PO 20 mg QPM JAKE Administration Calcium Carbonate/Glycine 500 mg 11/25/21 19:00 12/01/21 12:01 Calcium Carbonate Chew 500 Mg Tablet PO 500 mg 1200,1900 [facility] Administration Docusate Sodium 250 - 500 mg 11/26/21 12:00 12/01/21 12:02 Docusate Sodium 250 Mg Capsule PO 250 mg 1200 JAKE Administration Enoxaparin Sodium 40 mg 11/08/21 13:00 12/01/21 09:16 Enoxaparin 40 Mg/0.4 Ml Syringe SUBQ 40 mg DAILY JAKE Administration Finasteride 5 mg 11/26/21 12:00 12/01/21 12:01 Finasteride 5 Mg Tablet PO 5 mg 1200 JAKE Administration Insulin Aspart 3 - 11 unit 11/09/21 12:00 12/01/21 12:03 Insulin Aspart 300 Unit/3 Ml Pen SUBQ 3 unit 0800,1200,1700,2100 [facility] Administration Protocol Insulin Glargine 10 unit 11/10/21 21:00 11/30/21 21:59 Insulin Glargine 300 Unit/3 Ml Pen SUBQ 10 unit QPM JAKE Administration Lamotrigine 25 mg 11/06/21 22:00 12/01/21 09:06 Lamotrigine 25 Mg Tablet PO 25 mg BID JAKE Administration Lamotrigine 200 mg 11/06/21 22:00 12/01/21 09:06 Lamotrigine 100 Mg Tablet PO 200 mg BID JAKE Administration Levetiracetam 1,000 mg 11/06/21 23:00 12/01/21 09:10 Levetiracetam 250 Mg Tablet PO 1,000 mg BID JAKE Administration Metoprolol Succinate 12.5 mg 11/06/21 22:00 01/27/22 09:06 Metoprolol Succinate 25 Mg Tablet PO 12.5 mg BID JAKE Administration Multi-Ingredient Ointment 1 applic 11/28/21 07:29 11/28/21 10:01 Zinc Oxide 20% Oint 30 Gm Tube TOP 1 applic PRN PRN Administration Skin Care Multivitamins/Minerals 1 tab 11/25/21 12:00 12/01/21 12:02 Multivitamin W/Minerals Tablet PO 1 tab 1200 JAKE Administration Ondansetron HCl 4 mg 11/06/21 21:18 11/30/21 12:48 Ondansetron Odt 4 Mg Tablet TL 4 mg Q6HR PRN Administration Nausea / Vomiting Ondansetron HCl 4 mg 11/06/21 21:18 11/24/21 22:43 Ondansetron 4 Mg/2 Ml Vial IVP 4 mg Q6HR PRN Administration Nausea / Vomiting Oxycodone HCl 10 mg 11/06/21 21:18 11/22/21 08:07 Oxycodone 5 Mg Tablet PO 10 mg Q4HR PRN Administration Pain 8 to 10 Phenytoin Sodium 300 mg 11/07/21 09:00 12/01/21 09:06 Phenytoin Er 100 Mg Capsule PO 300 mg DAILY JAKE Administration Phenytoin Sodium 400 mg 11/06/21 23:00 11/30/21 21:57 Phenytoin Er 100 Mg Capsule PO 400 mg QPM JAKE Administration Polyethylene Glycol 17 gm 11/26/21 12:00 12/01/21 12:04 Polyethylene Glycol 3350 17 Gm Packet PO 17 gm 1200 JAKE Administration Senna 8.6 - 17.2 mg 11/26/21 12:00 12/01/21 12:02 Senna 8.6 Mg Tablet PO 8.6 mg 1200 JAKE Administration Sodium Chloride 10 ml 11/06/21 21:18 11/08/21 16:44 Sodium Chloride Flush 0.9% 10 Ml Syringe IVP 10 ml PRN PRN Administration NEEDED PER PROVIDER ORDERS Sodium Chloride 10 ml 11/07/21 01:00 12/01/21 09:10 Sodium Chloride Flush 0.9% 10 Ml Syringe IVP Not Given 0100,0900,1700 JAKE Tamsulosin HCl 0.4 mg 11/26/21 12:00 12/01/21 12:02 Tamsulosin 0.4 Mg Capsule PO 0.4 mg 1200 JAKE Administration Topiramate 50 mg 11/06/21 23:00 12/01/21 09:06 Topiramate 25 Mg Tablet PO 50 mg BID JAKE Administration - Lab Result Fish Bone Diagrams: 12/01/21 05:45 12/01/21 05:45 Subjective - Subjective Patient Reports: Resting Comfortably Objective Vital Signs: Vital Signs - 24 hr 11/30/21 12/01/21 12/01/21 16:25 02:33 09:04 Temperature 36.4 C L 36.4 C L 36.3 C L Heart Rate [ 72 70 77 Brachial] Respiratory 16 16 16 Rate Blood Pressure 128/73 [Left Brachial artery] Blood Pressure 120/66 115/65 [Right Brachial artery] O2 Saturation 100 95 99 Oxygen O2 Source [With Activity] Room air O2 Source Room air I&O (Last 24 Hrs): Intake and Output Totals x24h 11/29/21 11/30/21 12/01/21 23:59 23:59 23:59 Intake Total 830 340 120 Output Total 150 Balance 830 190 120 General: Alert, No acute distress HEENT: Atraumatic Neck: Supple Lymphatic: no adenopathy Neuro: Alert, Non Focal Cardiovascular: Regular rate, Normal S1, Normal S2 Respiratory: Chest non-tender, No respiratory distress, Breath sounds nml Abdomen: Normal bowel sounds, Soft Extremities: Normal pulses - Results Results: Laboratory Results WBC 6.2 x10^3/uL (4.8-10.8) 12/01/21 05:45 RBC 4.28 10^6/uL (4.70-6.10) L 12/01/21 05:45 Hgb 12.7 g/dL (14.0-18.0) L 12/01/21 05:45 Hct 40.0 % (42.0-52.0) L 12/01/21 05:45 MCV 93.5 fL (80.0-94.0) 12/01/21 05:45 MCH 29.7 pg (27.0-31.0) 12/01/21 05:45 MCHC 31.8 g/dL (32.0-36.0) L 12/01/21 05:45 RDW 14.1 % (12.0-15.0) 12/01/21 05:45 Plt Count 457 10^3/uL (130-450) H 12/01/21 05:45 MPV 9.1 fL (7.4-11.4) 12/01/21 05:45 Neut # (Auto) 3.2 10^3/uL (1.5-6.6) 12/01/21 05:45 Lymph # (Auto) 1.7 10^3/uL (1.5-3.5) 12/01/21 05:45 [place] # (Auto) 0.6 10^3/uL (0.0-1.0) 12/01/21 05:45 Eos # (Auto) 0.6 10^3/uL (0.0-0.7) 12/01/21 05:45 Baso # (Auto) 0.1 10^3/uL (0.0-0.1) 12/01/21 05:45 Absolute Nucleated RBC 0.00 x10^3/uL 12/01/21 05:45 Nucleated RBC % 0.0 /100WBC 12/01/21 05:45 PT 11.7 secs (9.9-12.6) 11/06/21 21:20 INR 1.1 (0.8-1.2) 11/06/21 21:20 APTT 25.3 secs (24.9-33.3) 11/06/21 21:20 Sodium 135 mmol/L (135-145) 12/01/21 05:45 Potassium 4.2 mmol/L (3.5-5.0) 12/01/21 05:45 Chloride 100 mmol/L (101-111) L 12/01/21 05:45 Carbon Dioxide 27 mmol/L (21-32) 12/01/21 05:45 Anion Gap 8.0 (6-13) 12/01/21 05:45 BUN 23 mg/dL (6-20) H 12/01/21 05:45 Creatinine 1.0 mg/dL (0.6-1.2) 12/01/21 05:45 Estimated GFR (MDRD) 73 (>89) L 12/01/21 05:45 Glucose 118 mg/dL (70-100) H 12/01/21 05:45 POC Whole Bld Glucose 165 mg/dL (70 - 100) H 12/01/21 11:54 Estimat Average Glucose 126 mg/dL (70-100) H 11/08/21 06:45 Hemoglobin A1c % 6.0 % (4.27-6.07) 11/08/21 06:45 Calcium 8.9 mg/dL (8.5-10.3) 12/01/21 05:45 Total Bilirubin 0.5 mg/dL (0.2-1.0) 11/06/21 21:20 AST 35 IU/L (10-42) 11/06/21 21:20 ALT 39 IU/L (10-60) 11/06/21 21:20 Alkaline Phosphatase 91 IU/L (42-121) 11/06/21 21:20 Total Protein 8.7 g/dL (6.7-8.2) H 11/06/21 21:20 Albumin 4.4 g/dL (3.2-5.5) 11/06/21 21:20 Globulin 4.3 g/dL (2.1-4.2) H 11/06/21 21:20 Albumin/Globulin Ratio 1.0 (1.0-2.2) 11/06/21 21:20 Lipase 38 U/L (22-51) 11/06/21 21:20 25-OH Vitamin D Total 15 ng/mL (30-100) L 11/10/21 11:14 Urine Color DARK YELLOW 11/06/21 21:12 Urine Clarity CLEAR (CLEAR) 11/06/21 21:12 Urine pH 6.0 PH (5.0-7.5) 11/06/21 21:12 Ur Specific [place] 1.020 (1.002-1.030) 11/06/21 21:12 Urine Protein TRACE mg/dL (NEGATIVE) 11/06/21 21:12 Urine Glucose (UA) 100 mg/dL (NEGATIVE) H 11/06/21 21:12 Urine Ketones NEGATIVE mg/dL (NEGATIVE) 11/06/21 21:12 Urine Occult Blood NEGATIVE (NEGATIVE) 11/06/21 21:12 Urine Nitrite NEGATIVE (NEGATIVE) 11/06/21 21:12 Urine Bilirubin NEGATIVE (NEGATIVE) 11/06/21 21:12 Urine Urobilinogen 0.2 (NORMAL) E.U./dL (NORMAL) 11/06/21 21:12 Ur Leukocyte Esterase NEGATIVE (NEGATIVE) 11/06/21 21:12 Ur Microscopic Review NOT INDICATED 11/06/21 21:12 Urine Culture Comments NOT INDICATED 11/06/21 21:12 Nasal Adenovirus (PCR) NOT DETECTED 11/26/21 13:30 Nasal B. parapertussis DNA (PCR) NOT DETECTED 11/26/21 13:30 Nasal Coronavir 229E PCR NOT DETECTED 11/26/21 13:30 Nasal Coronavir HKU1 PCR NOT DETECTED 11/26/21 13:30 Nasal Coronavir NL63 PCR NOT DETECTED 11/26/21 13:30 Nasal Coronavir OC43 PCR NOT DETECTED 11/26/21 13:30 Nasal Enterovir/Rhinovir PCR NOT DETECTED 11/26/21 13:30 Nasal Influenza B PCR NOT DETECTED 11/26/21 13:30 Nasal Influenza A PCR NOT DETECTED 11/26/21 13:30 Nasal Parainfluen 1 PCR NOT DETECTED 11/26/21 13:30 Nasal Parainfluen 2 PCR NOT DETECTED 11/26/21 13:30 Nasal Parainfluen 3 PCR NOT DETECTED 11/26/21 13:30 Nasal Parainfluen 4 PCR NOT DETECTED 11/26/21 13:30 Nasal RSV (PCR) NOT DETECTED 11/26/21 13:30 Nasal B.pertussis DNA PCR NOT DETECTED 11/26/21 13:30 Nasal C.pneumoniae (PCR) NOT DETECTED 11/26/21 13:30 Akhil Human Metapneumo PCR NOT DETECTED 11/26/21 13:30 Nasal M.pneumoniae (PCR) NOT DETECTED 11/26/21 13:30 Nasal SARS-CoV-2 (PCR) NOT DETECTED 11/26/21 13:30 Phenytoin 28.5 ug/mL 11/24/21 13:34 Lamotrigine 2.5 mcg/mL (4.0-18.0) L 11/08/21 08:39 Levetiracetam 17.6 mcg/mL 11/08/21 08:39 - Procedures Procedures: Procedures EXCISION OF ASCENDING COLON, ENDO (03/29/17) EXCISION OF DESCENDING COLON, ENDO (03/29/17) EXCISION OF RECTUM, ENDO (03/29/17) INSERTION OF INFUSION DEV INTO SUP VENA CAVA, PERC APPROACH (11/05/17) ABX Reporting Has patient been on IV antibiotics over the past 48 hours?: No Current Medications - Current Medications Current Medications: Active Medications Acetaminophen (Acetaminophen 325 Mg Tablet) 650 mg PO Q4HR PRN PRN Reason: Pain 1 to 4 Last Admin: 11/22/21 08:05 Dose: 650 mg Aspirin (Aspirin Ec 81 Mg Tablet) 81 mg PO 1200 [facility] Last Admin: 12/01/21 12:01 Dose: 81 mg Atorvastatin Calcium (Atorvastatin 10 Mg Tablet) 20 mg PO QPM [facility] Last Admin: 11/30/21 21:57 Dose: 20 mg Calcium Carbonate/Glycine (Calcium Carbonate Chew 500 Mg Tablet) 500 mg PO 1200,1900 [facility] Last Admin: 12/01/21 12:01 Dose: 500 mg Docusate Sodium (Docusate Sodium 250 Mg Capsule) 250 - 500 mg PO 1200 [facility] Last Admin: 12/01/21 12:02 Dose: 250 mg Enoxaparin Sodium (Enoxaparin 40 Mg/0.4 Ml Syringe) 40 mg SUBQ DAILY [facility] Last Admin: 12/01/21 09:16 Dose: 40 mg Finasteride (Finasteride 5 Mg Tablet) 5 mg PO 1200 [facility] Last Admin: 12/01/21 12:01 Dose: 5 mg Insulin Aspart (Insulin Aspart 300 Unit/3 Ml Pen) 3 - 11 unit SUBQ 0800,1200,1700,2100 [facility]; Protocol Last Admin: 12/01/21 12:03 Dose: 3 unit Insulin Glargine (Insulin Glargine 300 Unit/3 Ml Pen) 10 unit SUBQ QPM [facility] Last Admin: 11/30/21 21:59 Dose: 10 unit Lamotrigine (Lamotrigine 25 Mg Tablet) 25 mg PO BID [facility] Last Admin: 12/01/21 09:06 Dose: 25 mg Lamotrigine (Lamotrigine 100 Mg Tablet) 200 mg PO BID [facility] Last Admin: 12/01/21 09:06 Dose: 200 mg Levetiracetam (Levetiracetam 250 Mg Tablet) 1,000 mg PO BID [facility] Last Admin: 12/01/21 09:10 Dose: 1,000 mg Lorazepam (Lorazepam 2 Mg/Ml Vial) 2 mg IVP Q2H PRN PRN Reason: Seizure Metoprolol Succinate (Metoprolol Succinate 25 Mg Tablet) 12.5 mg PO BID [facility] Last Admin: 12/01/21 09:06 Dose: 12.5 mg Multi-Ingredient Ointment (Zinc Oxide 20% Oint 30 Gm Tube) 1 applic TOP PRN PRN PRN Reason: Skin Care Last Admin: 11/28/21 10:01 Dose: 1 applic Multivitamins/Minerals (Multivitamin W/Minerals Tablet) 1 tab PO 1200 [facility] Last Admin: 12/01/21 12:02 Dose: 1 tab Ondansetron HCl (Ondansetron Odt 4 Mg Tablet) 4 mg TL Q6HR PRN PRN Reason: Nausea / Vomiting Last Admin: 11/30/21 12:48 Dose: 4 mg Ondansetron HCl (Ondansetron 4 Mg/2 Ml Vial) 4 mg IVP Q6HR PRN PRN Reason: Nausea / Vomiting Last Admin: 11/24/21 22:43 Dose: 4 mg Oxycodone HCl (Oxycodone 5 Mg Tablet) 10 mg PO Q4HR PRN PRN Reason: Pain 8 to 10 Last Admin: 11/22/21 08:07 Dose: 10 mg Phenytoin Sodium (Phenytoin Er 100 Mg Capsule) 300 mg PO DAILY [facility] Last Admin: 12/01/21 09:06 Dose: 300 mg Phenytoin Sodium (Phenytoin Er 100 Mg Capsule) 400 mg PO QPM [facility] Last Admin: 11/30/21 21:57 Dose: 400 mg Polyethylene Glycol (Polyethylene Glycol 3350 17 Gm Packet) 17 gm PO 1200 [facility] Last Admin: 12/01/21 12:04 Dose: 17 gm Senna (Senna 8.6 Mg Tablet) 8.6 - 17.2 mg PO 1200 [facility] Last Admin: 12/01/21 12:02 Dose: 8.6 mg Sodium Chloride (Sodium Chloride Flush 0.9% 10 Ml Syringe) 10 ml IVP PRN PRN PRN Reason: NEEDED PER PROVIDER ORDERS Last Admin: 11/08/21 16:44 Dose: 10 ml Sodium Chloride (Sodium Chloride Flush 0.9% 10 Ml Syringe) 10 ml IVP 0100,0900,1700 [facility] Last Admin: 12/01/21 09:10 Dose: Not Given Tamsulosin HCl (Tamsulosin 0.4 Mg Capsule) 0.4 mg PO 1200 [facility] Last Admin: 12/01/21 12:02 Dose: 0.4 mg Topiramate (Topiramate 25 Mg Tablet) 50 mg PO BID [facility] Last Admin: 12/01/21 09:06 Dose: 50 mg Phenytoin Sodium Extended [Dilantin] 300 mg PO DAILY 05/18/13 [id number] ER [Glucotrol Xl] 2.5 mg PO DAILY 12/19/17 Metoprolol Succinate 12.5 mg PO BID 09/04/18
[2021-12-01] MEDS: ACETAMINOPHEN 325 MG TABLET PO PRN (16:22)
[2021-12-01] MEDS: INSULIN GLARGINE 300 UNIT/3 ML PEN SUBQ SCH (20:32)
[2021-12-01] MEDS: ATORVASTATIN 10 MG TABLET PO SCH (20:32)
[2021-12-02] MEDS: ONDANSETRON 4 MG/2 ML VIAL IVP PRN (06:30)
[2021-12-02] MEDS: ACETAMINOPHEN 325 MG TABLET PO PRN (06:30)
[2021-12-02] MEDS: oxyCODONE 5 MG TABLET PO PRN (06:30)
[2021-12-02] MEDS: INSULIN ASPART 300 UNIT/3 ML PEN SUBQ SCH ×4 (08:56→20:26)
[2021-12-02] MEDS: lamoTRIgine 100 MG TABLET PO SCH ×2 (08:57→20:31)
[2021-12-02] MEDS: levETIRAcetam 250 MG TABLET PO SCH ×2 (08:57→20:32)
[2021-12-02] MEDS: ENOXAPARIN 40 MG/0.4 ML SYRINGE SUBQ SCH (08:57)
[2021-12-02] MEDS: METOPROLOL SUCCINATE 25 MG TABLET PO SCH ×2 (08:57→20:30)
[2021-12-02] MEDS: lamoTRIgine 25 MG TABLET PO SCH ×2 (08:57→20:32)
[2021-12-02] MEDS: PHENYTOIN ER 100 MG CAPSULE PO SCH ×2 (08:57→20:29)
[2021-12-02] MEDS: SODIUM CHLORIDE FLUSH 0.9% 10 ML SYRINGE IVP SCH ×2 (08:58→17:23)
[2021-12-02] MEDS: TOPIRAMATE 25 MG TABLET PO SCH ×2 (10:07→20:30)
[2021-12-02] MEDS: ONDANSETRON ODT 4 MG TABLET TL PRN (11:37)
--- NOTE | 2021-12-02 11:56 | PROVIDER PROGRESS NOTE ---
Assessment/Plan - Problem List (1) Closed right hip fracture Qualifiers: Encounter type: subsequent encounter Assessment/Plan: 12/02/21 pt is enjoying to watch his TV and stable. oncology social work help pt's d/c planning. 12/01 pt is stable, comfortable and eating his lunch. pt is pending for placement 11/30 pt is comfortable rest, stable. pt is pending for placement 11/29 pt is stable, pt is pending for skilled nursing care placement. consult with oncology social work for placement. 11/26 pt feel comfortable and stable. pt is pending for skilled nursing care placement 11/25 pt is comfortable, eat his whole breakfast. pt is pending for skilled nursing care placement, oncology social work was consulted for that 11/24 pt is comfortable, enjoy his lunch, and ask when he can go to nurse facility. pt is pending for placement, oncology social work was consulted for that. continue pain control, lovenox for DVT prophylaxis, continue PT/OT 11/23 pt had right hip fracture repaired, then pt had PT/OT evaluation and treatment. per pt's family, pt is planned to d/c to [facility]. oncology social work was consulted for placement (2) COVID-19 11/29 pt's retest of Covid 19 became negative now. pt has been no respiratory distress in the hospital course. Pt was newly diagnosed as Covid (+) on 11/11/2021 after he was tested in preparation for discharge. Patient was asymptomatic without fever, cough, stable O2 sat without respiratory distress, so pt was not treated for Covid 19. (3) Seizure disorder Assessment/Plan: Stable. No further seizures On Keppra 1000 mg p.o. twice daily and Lamictal 200 mg p.o. twice daily. Phenytoin 300 mg p.o. daily and 400 mg p.o. every afternoon. Topamax 50 mg p.o. twice daily. Also PRN Ativan for acute seizure (4) History of coronary artery disease Assessment/Plan: Stable, On metoprolol succinate 12.5 mg p.o. twice daily. Aspirin 81 mg p.o. daily. Atorvastatin 20 mg p.o. every afternoon (5) Type 2 diabetes mellitus stable, continue carb controlled diet, glucose checks, sliding scale Insulin coverage, Lantus dosing, hypoglycemia protocol. 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 He is at his baseline. 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 (7) BPH Continue Flonax and Proscar - Current Meds Current Meds: Current Medications Generic Name Dose Route Start Last Admin Trade Name Freq PRN Reason Stop Dose Admin Acetaminophen 650 mg 11/06/21 21:18 12/02/21 06:30 Acetaminophen 325 Mg Tablet PO 650 mg Q4HR PRN Administration Pain 1 to 4 Aspirin 81 mg 11/26/21 12:00 12/01/21 12:01 Aspirin Ec 81 Mg Tablet PO 81 mg 1200 JAKE Administration Atorvastatin Calcium 20 mg 11/06/21 23:00 12/01/21 20:32 Atorvastatin 10 Mg Tablet PO 20 mg QPM JAKE Administration Calcium Carbonate/Glycine 500 mg 11/25/21 19:00 12/01/21 18:19 Calcium Carbonate Chew 500 Mg Tablet PO 500 mg 1200,1900 JAKE Administration Docusate Sodium 250 - 500 mg 11/26/21 12:00 12/01/21 12:02 Docusate Sodium 250 Mg Capsule PO 250 mg 1200 JAKE Administration Enoxaparin Sodium 40 mg 11/08/21 13:00 12/02/21 08:57 Enoxaparin 40 Mg/0.4 Ml Syringe SUBQ 40 mg DAILY JAKE Administration Finasteride 5 mg 11/26/21 12:00 12/01/21 12:01 Finasteride 5 Mg Tablet PO 5 mg 1200 JAKE Administration Insulin Aspart 3 - 11 unit 11/09/21 12:00 12/02/21 11:41 Insulin Aspart 300 Unit/3 Ml Pen SUBQ Not Given 0800,1200,1700,2100 [facility] Protocol Insulin Glargine 10 unit 11/10/21 21:00 12/01/21 20:32 Insulin Glargine 300 Unit/3 Ml Pen SUBQ 10 unit QPM JAKE Administration Lamotrigine 25 mg 11/06/21 22:00 12/02/21 08:57 Lamotrigine 25 Mg Tablet PO 25 mg BID JAKE Administration Lamotrigine 200 mg 11/06/21 22:00 12/02/21 08:57 Lamotrigine 100 Mg Tablet PO 200 mg BID JAKE Administration Levetiracetam 1,000 mg 11/06/21 23:00 12/02/21 08:57 Levetiracetam 250 Mg Tablet PO 1,000 mg BID JAKE Administration Metoprolol Succinate 12.5 mg 11/06/21 22:00 12/02/21 08:57 Metoprolol Succinate 25 Mg Tablet PO 12.5 mg BID JAKE Administration Multi-Ingredient Ointment 1 applic 11/28/21 07:29 11/28/21 10:01 Zinc Oxide 20% Oint 30 Gm Tube TOP 1 applic PRN PRN Administration Skin Care Multivitamins/Minerals 1 tab 11/25/21 12:00 12/01/21 12:02 Multivitamin W/Minerals Tablet PO 1 tab 1200 JAKE Administration Ondansetron HCl 4 mg 11/06/21 21:18 12/02/21 11:37 Ondansetron Odt 4 Mg Tablet TL 4 mg Q6HR PRN Administration Nausea / Vomiting Ondansetron HCl 4 mg 11/06/21 21:18 11/24/21 22:43 Ondansetron 4 Mg/2 Ml Vial IVP 4 mg Q6HR PRN Administration Nausea / Vomiting Oxycodone HCl 10 mg 11/06/21 21:18 12/02/21 06:30 Oxycodone 5 Mg Tablet PO 10 mg Q4HR PRN Administration Pain 8 to 10 Phenytoin Sodium 300 mg 11/07/21 09:00 12/02/21 08:57 Phenytoin Er 100 Mg Capsule PO 300 mg DAILY JAKE Administration Phenytoin Sodium 400 mg 11/06/21 23:00 12/01/21 20:31 Phenytoin Er 100 Mg Capsule PO 400 mg QPM JAKE Administration Polyethylene Glycol 17 gm 11/26/21 12:00 12/01/21 12:04 Polyethylene Glycol 3350 17 Gm Packet PO 17 gm 1200 JAKE Administration Senna 8.6 - 17.2 mg 11/26/21 12:00 12/01/21 12:02 Senna 8.6 Mg Tablet PO 8.6 mg 1200 JAKE Administration Sodium Chloride 10 ml 11/06/21 21:18 11/08/21 16:44 Sodium Chloride Flush 0.9% 10 Ml Syringe IVP 10 ml PRN PRN Administration NEEDED PER PROVIDER ORDERS Sodium Chloride 10 ml 11/07/21 01:00 12/02/21 08:58 Sodium Chloride Flush 0.9% 10 Ml Syringe IVP Not Given 0100,0900,1700 [facility] Tamsulosin HCl 0.4 mg 11/26/21 12:00 12/01/21 12:02 Tamsulosin 0.4 Mg Capsule PO 0.4 mg 1200 JAKE Administration Topiramate 50 mg 11/06/21 23:00 12/02/21 10:07 Topiramate 25 Mg Tablet PO 50 mg BID JAKE Administration - Lab Result Fish Bone Diagrams: 12/01/21 05:45 12/01/21 05:45 Subjective - Subjective Patient Reports: Resting Comfortably Objective Vital Signs: Vital Signs - 24 hr 12/02/21 08:48 Temperature 36.5 C Heart Rate [ 68 Brachial] Respiratory 17 Rate Blood Pressure 114/76 [Right Brachial artery] O2 Saturation 97 Oxygen O2 Source [With Activity] Room air O2 Source Room air I&O (Last 24 Hrs): Intake and Output Totals x24h 11/30/21 12/01/21 12/02/21 23:59 23:59 23:59 Intake Total 340 710 Output Total 150 Balance 190 710 General: Alert, No acute distress HEENT: Atraumatic Neck: Supple Lymphatic: no adenopathy Neuro: Alert, Non Focal Cardiovascular: Regular rate, Normal S1, Normal S2 Respiratory: Chest non-tender, No respiratory distress Abdomen: Normal bowel sounds, Soft Extremities: Normal pulses - Results Results: Laboratory Results WBC 6.2 x10^3/uL (4.8-10.8) 12/01/21 05:45 RBC 4.28 10^6/uL (4.70-6.10) L 12/01/21 05:45 Hgb 12.7 g/dL (14.0-18.0) L 12/01/21 05:45 Hct 40.0 % (42.0-52.0) L 12/01/21 05:45 MCV 93.5 fL (80.0-94.0) 12/01/21 05:45 MCH 29.7 pg (27.0-31.0) 12/01/21 05:45 MCHC 31.8 g/dL (32.0-36.0) L 12/01/21 05:45 RDW 14.1 % (12.0-15.0) 12/01/21 05:45 Plt Count 457 10^3/uL (130-450) H 12/01/21 05:45 MPV 9.1 fL (7.4-11.4) 12/01/21 05:45 Neut # (Auto) 3.2 10^3/uL (1.5-6.6) 12/01/21 05:45 Lymph # (Auto) 1.7 10^3/uL (1.5-3.5) 12/01/21 05:45 [place] # (Auto) 0.6 10^3/uL (0.0-1.0) 12/01/21 05:45 Eos # (Auto) 0.6 10^3/uL (0.0-0.7) 12/01/21 05:45 Baso # (Auto) 0.1 10^3/uL (0.0-0.1) 12/01/21 05:45 Absolute Nucleated RBC 0.00 x10^3/uL 12/01/21 05:45 Nucleated RBC % 0.0 /100WBC 12/01/21 05:45 PT 11.7 secs (9.9-12.6) 11/06/21 21:20 INR 1.1 (0.8-1.2) 11/06/21 21:20 APTT 25.3 secs (24.9-33.3) 11/06/21 21:20 Sodium 135 mmol/L (135-145) 12/01/21 05:45 Potassium 4.2 mmol/L (3.5-5.0) 12/01/21 05:45 Chloride 100 mmol/L (101-111) L 12/01/21 05:45 Carbon Dioxide 27 mmol/L (21-32) 12/01/21 05:45 Anion Gap 8.0 (6-13) 12/01/21 05:45 BUN 23 mg/dL (6-20) H 12/01/21 05:45 Creatinine 1.0 mg/dL (0.6-1.2) 12/01/21 05:45 Estimated GFR (MDRD) 73 (>89) L 12/01/21 05:45 Glucose 118 mg/dL (70-100) H 12/01/21 05:45 POC Whole Bld Glucose 132 mg/dL (70 - 100) H 12/02/21 11:40 Estimat Average Glucose 126 mg/dL (70-100) H 11/08/21 06:45 Hemoglobin A1c % 6.0 % (4.27-6.07) 11/08/21 06:45 Calcium 8.9 mg/dL (8.5-10.3) 12/01/21 05:45 Total Bilirubin 0.5 mg/dL (0.2-1.0) 11/06/21 21:20 AST 35 IU/L (10-42) 11/06/21 21:20 ALT 39 IU/L (10-60) 11/06/21 21:20 Alkaline Phosphatase 91 IU/L (42-121) 11/06/21 21:20 Total Protein 8.7 g/dL (6.7-8.2) H 11/06/21 21:20 Albumin 4.4 g/dL (3.2-5.5) 11/06/21 21:20 Globulin 4.3 g/dL (2.1-4.2) H 11/06/21 21:20 Albumin/Globulin Ratio 1.0 (1.0-2.2) 11/06/21 21:20 Lipase 38 U/L (22-51) 11/06/21 21:20 25-OH Vitamin D Total 15 ng/mL (30-100) L 11/10/21 11:14 Urine Color DARK YELLOW 11/06/21 21:12 Urine Clarity CLEAR (CLEAR) 11/06/21 21:12 Urine pH 6.0 PH (5.0-7.5) 11/06/21 21:12 Ur Specific [place] 1.020 (1.002-1.030) 11/06/21 21:12 Urine Protein TRACE mg/dL (NEGATIVE) 11/06/21 21:12 Urine Glucose (UA) 100 mg/dL (NEGATIVE) H 11/06/21 21:12 Urine Ketones NEGATIVE mg/dL (NEGATIVE) 11/06/21 21:12 Urine Occult Blood NEGATIVE (NEGATIVE) 11/06/21 21:12 Urine Nitrite NEGATIVE (NEGATIVE) 11/06/21 21:12 Urine Bilirubin NEGATIVE (NEGATIVE) 11/06/21 21:12 Urine Urobilinogen 0.2 (NORMAL) E.U./dL (NORMAL) 11/06/21 21:12 Ur Leukocyte Esterase NEGATIVE (NEGATIVE) 11/06/21 21:12 Ur Microscopic Review NOT INDICATED 11/06/21 21:12 Urine Culture Comments NOT INDICATED 11/06/21 21:12 Nasal Adenovirus (PCR) NOT DETECTED 11/26/21 13:30 Nasal B. parapertussis DNA (PCR) NOT DETECTED 11/26/21 13:30 Nasal Coronavir 229E PCR NOT DETECTED 11/26/21 13:30 Nasal Coronavir HKU1 PCR NOT DETECTED 11/26/21 13:30 Nasal Coronavir NL63 PCR NOT DETECTED 11/26/21 13:30 Nasal Coronavir OC43 PCR NOT DETECTED 11/26/21 13:30 Nasal Enterovir/Rhinovir PCR NOT DETECTED 11/26/21 13:30 Nasal Influenza B PCR NOT DETECTED 11/26/21 13:30 Nasal Influenza A PCR NOT DETECTED 11/26/21 13:30 Nasal Parainfluen 1 PCR NOT DETECTED 11/26/21 13:30 Nasal Parainfluen 2 PCR NOT DETECTED 11/26/21 13:30 Nasal Parainfluen 3 PCR NOT DETECTED 11/26/21 13:30 Nasal Parainfluen 4 PCR NOT DETECTED 11/26/21 13:30 Nasal RSV (PCR) NOT DETECTED 11/26/21 13:30 Nasal B.pertussis DNA PCR NOT DETECTED 11/26/21 13:30 Nasal C.pneumoniae (PCR) NOT DETECTED 11/26/21 13:30 Akhil Human Metapneumo PCR NOT DETECTED 11/26/21 13:30 Nasal M.pneumoniae (PCR) NOT DETECTED 11/26/21 13:30 Nasal SARS-CoV-2 (PCR) NOT DETECTED 11/26/21 13:30 Phenytoin 28.5 ug/mL 11/24/21 13:34 Lamotrigine 2.5 mcg/mL (4.0-18.0) L 11/08/21 08:39 Levetiracetam 17.6 mcg/mL 11/08/21 08:39 - Procedures Procedures: Procedures EXCISION OF ASCENDING COLON, ENDO (03/29/17) EXCISION OF DESCENDING COLON, ENDO (03/29/17) EXCISION OF RECTUM, ENDO (03/29/17) INSERTION OF INFUSION DEV INTO SUP VENA CAVA, PERC APPROACH (11/05/17) ABX Reporting Has patient been on IV antibiotics over the past 48 hours?: No Current Medications - Current Medications Current Medications: Active Medications Acetaminophen (Acetaminophen 325 Mg Tablet) 650 mg PO Q4HR PRN PRN Reason: Pain 1 to 4 Last Admin: 12/02/21 06:30 Dose: 650 mg Aspirin (Aspirin Ec 81 Mg Tablet) 81 mg PO 1200 [facility] Last Admin: 12/01/21 12:01 Dose: 81 mg Atorvastatin Calcium (Atorvastatin 10 Mg Tablet) 20 mg PO QPM [facility] Last Admin: 12/01/21 20:32 Dose: 20 mg Calcium Carbonate/Glycine (Calcium Carbonate Chew 500 Mg Tablet) 500 mg PO 1200,1900 [facility] Last Admin: 12/01/21 18:19 Dose: 500 mg Docusate Sodium (Docusate Sodium 250 Mg Capsule) 250 - 500 mg PO 1200 [facility] Last Admin: 12/01/21 12:02 Dose: 250 mg Enoxaparin Sodium (Enoxaparin 40 Mg/0.4 Ml Syringe) 40 mg SUBQ DAILY [facility] Last Admin: 12/02/21 08:57 Dose: 40 mg Finasteride (Finasteride 5 Mg Tablet) 5 mg PO 1200 [facility] Last Admin: 12/01/21 12:01 Dose: 5 mg Insulin Aspart (Insulin Aspart 300 Unit/3 Ml Pen) 3 - 11 unit SUBQ 0800,1200,1700,2100 [facility]; Protocol Last Admin: 12/02/21 11:41 Dose: Not Given Insulin Glargine (Insulin Glargine 300 Unit/3 Ml Pen) 10 unit SUBQ QPM [facility] Last Admin: 12/01/21 20:32 Dose: 10 unit Lamotrigine (Lamotrigine 25 Mg Tablet) 25 mg PO BID [facility] Last Admin: 12/02/21 08:57 Dose: 25 mg Lamotrigine (Lamotrigine 100 Mg Tablet) 200 mg PO BID [facility] Last Admin: 12/02/21 08:57 Dose: 200 mg Levetiracetam (Levetiracetam 250 Mg Tablet) 1,000 mg PO BID [facility] Last Admin: 12/02/21 08:57 Dose: 1,000 mg Lorazepam (Lorazepam 2 Mg/Ml Vial) 2 mg IVP Q2H PRN PRN Reason: Seizure Metoprolol Succinate (Metoprolol Succinate 25 Mg Tablet) 12.5 mg PO BID [facility] Last Admin: 12/02/21 08:57 Dose: 12.5 mg Multi-Ingredient Ointment (Zinc Oxide 20% Oint 30 Gm Tube) 1 applic TOP PRN PRN PRN Reason: Skin Care Last Admin: 11/28/21 10:01 Dose: 1 applic Multivitamins/Minerals (Multivitamin W/Minerals Tablet) 1 tab PO 1200 [facility] Last Admin: 12/01/21 12:02 Dose: 1 tab Ondansetron HCl (Ondansetron Odt 4 Mg Tablet) 4 mg TL Q6HR PRN PRN Reason: Nausea / Vomiting Last Admin: 12/02/21 11:37 Dose: 4 mg Ondansetron HCl (Ondansetron 4 Mg/2 Ml Vial) 4 mg IVP Q6HR PRN PRN Reason: Nausea / Vomiting Last Admin: 11/24/21 22:43 Dose: 4 mg Oxycodone HCl (Oxycodone 5 Mg Tablet) 10 mg PO Q4HR PRN PRN Reason: Pain 8 to 10 Last Admin: 12/02/21 06:30 Dose: 10 mg Phenytoin Sodium (Phenytoin Er 100 Mg Capsule) 300 mg PO DAILY [facility] Last Admin: 12/02/21 08:57 Dose: 300 mg Phenytoin Sodium (Phenytoin Er 100 Mg Capsule) 400 mg PO QPM [facility] Last Admin: 12/01/21 20:31 Dose: 400 mg Polyethylene Glycol (Polyethylene Glycol 3350 17 Gm Packet) 17 gm PO 1200 [facility] Last Admin: 12/01/21 12:04 Dose: 17 gm Senna (Senna 8.6 Mg Tablet) 8.6 - 17.2 mg PO 1200 [facility] Last Admin: 12/01/21 12:02 Dose: 8.6 mg Sodium Chloride (Sodium Chloride Flush 0.9% 10 Ml Syringe) 10 ml IVP PRN PRN PRN Reason: NEEDED PER PROVIDER ORDERS Last Admin: 11/08/21 16:44 Dose: 10 ml Sodium Chloride (Sodium Chloride Flush 0.9% 10 Ml Syringe) 10 ml IVP 0100,0900,1700 [facility] Last Admin: 12/02/21 08:58 Dose: Not Given Tamsulosin HCl (Tamsulosin 0.4 Mg Capsule) 0.4 mg PO 1200 [facility] Last Admin: 12/01/21 12:02 Dose: 0.4 mg Topiramate (Topiramate 25 Mg Tablet) 50 mg PO BID [facility] Last Admin: 12/02/21 10:07 Dose: 50 mg Phenytoin Sodium Extended [Dilantin] 300 mg PO DAILY 05/18/13 glipiZIDE ER [Glucotrol Xl] 2.5 mg PO DAILY 12/19/17 Metoprolol Succinate 12.5 mg PO BID 10/31/18
[2021-12-02] MEDS: CALCIUM CARBONATE CHEW 500 MG TABLET PO SCH ×2 (12:35→20:30)
[2021-12-02] MEDS: DOCUSATE SODIUM 250 MG CAPSULE PO SCH (12:35)
[2021-12-02] MEDS: polyethylene glycoL 3350 17 GM PACKET PO SCH (12:36)
[2021-12-02] MEDS: SENNA 8.6 MG TABLET PO SCH (12:36)
[2021-12-02] MEDS: ASPIRIN EC 81 MG TABLET PO SCH (12:36)
[2021-12-02] MEDS: TAMSULOSIN 0.4 MG CAPSULE PO SCH (12:36)
[2021-12-02] MEDS: MULTIVITAMIN W/MINERALS TABLET PO SCH (12:36)
[2021-12-02] MEDS: FINASTERIDE 5 MG TABLET PO SCH (12:36)
[2021-12-02] MEDS: INSULIN GLARGINE 300 UNIT/3 ML PEN SUBQ SCH (20:27)
[2021-12-02] MEDS: ATORVASTATIN 10 MG TABLET PO SCH (20:30)
[2021-12-03] MEDS: SODIUM CHLORIDE FLUSH 0.9% 10 ML SYRINGE IVP SCH ×3 (02:08→17:34)
[2021-12-03] MEDS: INSULIN ASPART 300 UNIT/3 ML PEN SUBQ SCH ×4 (07:21→21:21)
[2021-12-03] MEDS ORDERED: BISACODYL 10 MG SUPP PR ONE (08:00)
[2021-12-03 08:40] VITALS: BP 120/73
[2021-12-03] MEDS: ENOXAPARIN 40 MG/0.4 ML SYRINGE SUBQ SCH (08:40)
[2021-12-03] MEDS: METOPROLOL SUCCINATE 25 MG TABLET PO SCH ×2 (08:41→21:15)
[2021-12-03] MEDS: levETIRAcetam 250 MG TABLET PO SCH ×2 (08:41→21:15)
[2021-12-03] MEDS: PHENYTOIN ER 100 MG CAPSULE PO SCH ×2 (08:41→21:14)
[2021-12-03] MEDS: lamoTRIgine 100 MG TABLET PO SCH ×2 (08:41→21:13)
[2021-12-03] MEDS: lamoTRIgine 25 MG TABLET PO SCH ×2 (08:41→21:15)
[2021-12-03] MEDS: TOPIRAMATE 25 MG TABLET PO SCH ×2 (08:41→21:14)
[2021-12-03] MEDS: ONDANSETRON ODT 4 MG TABLET TL PRN (10:51)
[2021-12-03] MEDS: DOCUSATE SODIUM 250 MG CAPSULE PO SCH (12:37)
[2021-12-03] MEDS: TAMSULOSIN 0.4 MG CAPSULE PO SCH (12:37)
[2021-12-03] MEDS: SENNA 8.6 MG TABLET PO SCH (12:37)
[2021-12-03] MEDS: FINASTERIDE 5 MG TABLET PO SCH (12:38)
[2021-12-03] MEDS: ASPIRIN EC 81 MG TABLET PO SCH (12:38)
[2021-12-03] MEDS: CALCIUM CARBONATE CHEW 500 MG TABLET PO SCH ×2 (12:38→21:14)
[2021-12-03] MEDS: MULTIVITAMIN W/MINERALS TABLET PO SCH (12:38)
[2021-12-03] MEDS: polyethylene glycoL 3350 17 GM PACKET PO SCH (12:38)
--- NOTE | 2021-12-03 14:32 | PROVIDER PROGRESS NOTE ---
Subjective - Prog Note Date Prog Note Date: 12/03/21 - Subjective Pt reports feeling: No change Subjective: Pt has no complaints this afternoon. He is sitting up in his chair and wanting to go back to bed. Denies pain, overall appears to be comfortable. Objective - Vital Signs/Intake & Output Reviewed Vital Signs: Yes Vital Signs: Vital Signs x48h Temp Pulse Resp BP Pulse Ox 12/03/21 08:40 63 120/73 12/03/21 07:18 36.6 C 72 17 122/72 97 Intake & Output: Intake & Output 11/30/21 12/01/21 12/02/21 12/03/21 23:59 23:59 23:59 23:59 Intake Total 754 461 4782 920 Output Total 150 75 200 Balance 380 731 6066 720 - Objective General Appearance: positive: No acute distress, Alert Eyes Bilateral: positive: Normal inspection, No scleral icterus ENT: positive: ENT inspection nml, No signs of dehydration Neck: positive: Nml inspection Respiratory: positive: Chest non-tender, No respiratory distress, Breath sounds nml Cardiovascular: positive: Regular rate & rhythm Peripheral Pulses: 2+ Dorsalis pedis (R), 2+ Dorsalis pedis (L) Abdomen: positive: Non-tender, No organomegaly, Nml bowel sounds, No distention Skin: positive: Color nml Extremities: positive: Non-tender, Nml appearance, No pedal edema Neurologic/Psychiatric: positive: Other (Alert, non-focal) - Lab Results Fish Bones: 12/01/21 05:45 12/01/21 05:45 Other Labs: Lab Results x24hrs 12/03/21 12/03/21 12/02/21 Range/Units 11:55 07:15 20:24 POC Whole Bld Glucose 174 H 95 148 H (70 - 100) mg/dL 12/02/21 Range/Units 16:36 POC Whole Bld Glucose 183 H (70 - 100) mg/dL Assessment/Plan - Problem List (1) Closed right hip fracture Impression: Stable. S/p hip repair in the OR on 11/07. Has been seen by PT/OT. Receiving Lovenox for DVT prophylaxis and continue current pain regimen for pain controll. Has been accepted to [facility] and will be discharging tomorrow afternoon. Qualifiers: Encounter type: subsequent encounter (2) COVID-19 Impression: Resolved. Negative test on re-check 11/29, after initially testing positive on 11/11 in preparation for discharge. Has remained asymptomatic, without fever, cough or new oxygen requirements. (3) Seizure disorder Impression: Stable. No recent seizures. Continue Keppra 1000mg PO BID and Lamictal 200mg PO BID, Phenytoin 300mg PO Qday and 400mg PO every afternoon, Topamax 50mg po BID. He also has PRN Ativan for acute seizure but has not needed it recently. (4) History of coronary artery disease Impression: Stable, On metoprolol succinate 12.5 mg p.o. twice daily. Aspirin 81 mg p.o. daily. Atorvastatin 20 mg p.o. every afternoon (5) Type 2 diabetes mellitus Impression: stable, continue carb controlled diet, glucose checks, sliding scale Insulin coverage, Lantus dosing, hypoglycemia protocol. 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 He is at his baseline. 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 (7) BPH (benign prostatic hyperplasia) Impression: Continue Flonax and Proscar Qualifiers: Lower urinary tract symptom presence: unspecified whether lower urinary tract symptoms present Qualified Code(s): N40.0 - Benign prostatic hyperplasia without lower urinary tract symptoms
[2021-12-03] MEDS: ATORVASTATIN 10 MG TABLET PO SCH (21:13)
[2021-12-03] MEDS: INSULIN GLARGINE 300 UNIT/3 ML PEN SUBQ SCH (21:20)
[2021-12-04] MEDS: SODIUM CHLORIDE FLUSH 0.9% 10 ML SYRINGE IVP SCH ×2 (02:03→08:05)
--- NOTE | 2021-12-04 07:16 | DISCHARGE SUMMARY ---
Discharge Summary Admit Date: 11/06/21 Discharge Date: 12/04/21 Discharging Provider: BRENDON Horta Primary Care Provider: Clarice Burton Code Status: Do Not Attempt Resuscitation Condition at Discharge: Stable Discharge Disposition: SNF DC/Xfer Discharge Facility Name: [facility] - DIAGNOSES Admission Diagnoses: (1) Closed right hip fracture (2) Pre-op evaluation (3) History of coronary artery disease (4) Cognitive and neurobehavioral dysfunction following brain injury (5) Seizure disorder (6) Type 2 diabetes mellitus Discharge Diagnoses with Status of Each Condition: (1) Closed right hip fracture Impression: Stable. S/p hip repair in the OR on 11/07. Has been seen by PT/OT. Receiving Lovenox for DVT prophylaxis and continue current pain regimen for pain control. Has been accepted to [facility] and is discharging today. Qualifiers: Encounter type: subsequent encounter (2) COVID-19 Impression: Resolved. Negative test on re-check 11/29 and 12/04, after initially testing positive on 11/11 in preparation for discharge. Has remained asymptomatic, without fever, cough or new oxygen requirements. (3) Seizure disorder Impression: Stable. No recent seizures. Continue Keppra 1000mg PO BID and Lamictal 200mg PO BID, Phenytoin 300mg PO Qday and 400mg PO every afternoon, Topamax 50mg po BID. (4) History of coronary artery disease Impression: Stable, On metoprolol succinate 12.5 mg p.o. twice daily. Aspirin 81 mg p.o. daily. Atorvastatin 20 mg p.o. every afternoon (5) Type 2 diabetes mellitus Impression: stable, continue carb controlled diet, glucose checks, 2 units Novalog with meals, Lantus dosing, hypoglycemia protocol. He should follow up with his PCP. Qualifiers: Diabetes mellitus nursing home insulin use: without intermediate card tender use Diabetes me llitus complication status: without complication Qualified Code(s): E11.9 - Type 2 diabetes mellitus without complications (6) Cognitive and neurobehavioral dysfunction following brain injury Impression: Stable. He is at his baseline. 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 (7) BPH (benign prostatic hyperplasia) Impression: Stable, has not had issues with retention. Continue Flonax and Proscar Qualifiers: Lower urinary tract symptom presence: unspecified whether lower urinary tract symptoms present Qualified Code(s): N40.0 - Benign prostatic hyperplasia without lower urinary tract symptoms - HPI History of Present Illness: Per Dr. Lim's admit HPI: "Patient is 75-year-old male with a past medical history significant for seizure disorder, type 2 diabetes mellitus, coronary artery disease who presents today after suffering a fall and complaining of right hip pain. Most of the history is obtained from the patient's family as the patient is a poor historian. The patient's [id number] who was with him when he fell, reported that he was just standing there when he fell and slow motion onto his right side. He reportedly felt fine prior to the fall and had no complaints. The patient states his pain is located in the right hip he has had decreased range of motion. He denies any chest pain or dyspnea. I asked the patient's son and [id number] if he ever complains of chest pain and they reported that he never complains of any pain in general. They stated he did have episodes of dizziness in the past and his home at [facility] were cut back and he had been doing well since then. He did not hit his head when he fell today. He is a diabetic and they do check his blood glucose when he appears confused but it was not checked today. The patient was ambulating independently in the past but now uses a walker more frequently. In the emergency department, imaging revealed a right hip fracture. Medicine was then consulted for admission. The patient has a POLST form which states he is a DNR with limited interventions . I discussed with him and he confirms he is a DNR." - CONSULTS | PROCEDURES Consultations: Orthopedics, PT/OT Procedures: 11/07 right hip hemiarthroplasty - HOSPITAL COURSE Hospital Course: On 11/07 he underwent a right hip hemiarthroplasty by Dr. Aiken of Orthopedics. He was seen by PT/OT and initially planned to discharge to a SNF on 11/11, however when he was given a COVID test in preparation for discharge he tested positive. He was asymptomatic and tested negative on recheck 11/29. Remains negative as of recheck on 12/04. Denies shortness of breath and does not have a cough or headache. Remains on room air. He had a seizure early in the morning of 11/08 and his homemeds were restarted. Per his family he has seizures when in increased distress. He had no further seizures during his hospital stay. Home meds were continued for his history of coronary artery disease. Heart rates were 60s-70s with normotensive blood pressures. Blood sugars have been monitored with meals and in the evening and were controlled with sliding scale insulin and evening doses of Lantus. Tolerating a carb controlled diet, occasional episodes of nausea have been treated with sublingual Zofran. His BPH has remained stable and he has been taking his home medications of Flonax and Proscar. His behavior has remained at baseline, pleasantly confused and impulsive due to a traumatic brain injury. - ALLERGIES Allergies/Adverse Reactions: Allergies Allergy/AdvReac Type Severity Reaction Status Date / Time No Known Drug Allergies Allergy Verified 11/06/21 19:19 - MEDICATIONS Home Medications: Ambulatory Orders Medication Instructions Recorded Confirmed Metformin HCl [Fortamet] 1,000 mg PO BIDWM #30 11/09/17 11/06/21 glipiZIDE ER [Glucotrol Xl] 2.5 mg PO DAILY 12/19/17 11/06/21 Acetaminophen [Tylenol] 650 mg PO Q4HR PRN #30 tablet 12/04/21 Aspirin EC [Ecotrin] 81 mg PO 1200 #30 tablet 12/04/21 Atorvastatin [Lipitor] 20 mg PO QPM #60 tablet 12/04/21 Calcium Carbonate [Tums (Calcium 500 mg PO 1200,1900 #40 tablet 12/04/21 Carbonate 500mg)] Enoxaparin [Lovenox] 40 mg SUBQ DAILY #15 syr 12/04/21 Finasteride [Proscar] 5 mg PO 1200 #30 tablet 12/04/21 Insulin Aspart [NovoLOG] 2 unit SUBQ 0800,1200,1700,2100 #3 12/04/21 ml Insulin Glargine [Lantus Solostar] 10 unit SUBQ QPM #30 ml 12/04/21 Metoprolol Succinate [Toprol Xl] 12.5 mg PO BID #60 tablet 12/04/21 Multivitamin W/Minerals [Theragran 1 tab PO 1200 30 Days #30 tablet 12/04/21 M] Ondansetron Odt [Zofran Odt] 4 mg TL Q6HR PRN #20 tablet 12/04/21 Phenytoin [Dilantin] 300 mg PO DAILY #90 tab 12/04/21 Phenytoin [Dilantin] 400 mg PO QPM #30 tab 12/04/21 Tamsulosin [Flomax] 0.4 mg PO DAILY #30 cap 12/04/21 Topiramate 50 mg PO BID #30 tab 12/04/21 Zinc Oxide 20% Oint [Zinc Oxide] 1 applic TOP PRN PRN 12/04/21 lamoTRIgine [LaMICtal] 25 mg PO BID #60 tablet 12/04/21 lamoTRIgine [LaMICtal] 200 mg PO BID #120 tablet 12/04/21 levETIRAcetam [Keppra] 1,000 mg PO BID #240 tablet 12/04/21 - PHYSICAL EXAM AT DISCHARGE General Appearance: positive: No acute distress, Alert Eyes Bilateral: positive: Normal inspection, PERRL, No scleral icterus ENT: positive: ENT inspection nml, No signs of dehydration Neck: positive: Nml inspection Respiratory: positive: Chest non-tender, No respiratory distress, Breath sounds nml Cardiovascular: positive: Regular rate & rhythm, No murmur Peripheral Pulses: positive: 2+ Abdomen: positive: Non-tender, No organomegaly, Nml bowel sounds, No distention Skin: positive: Color nml, No rash, Warm, Dry Extremities: positive: Non-tender, Full ROM, Nml appearance Neurologic/Psychiatric: positive: Oriented x3 - LABS Result Diagrams: 12/01/21 05:45 12/01/21 05:45 - SEPSIS Current Stage of Sepsis: Ruled out - FOLLOW UP Follow Up: Follow up with PCP in 2-3 weeks for diabetic follow up and medication refills - TIME SPENT Time Spent in Discharge (Minutes): 45
--- NOTE | 2021-12-04 07:17 | Discharge Plan ---
"Discharge Plan for SNF / TRACIE - SNF / TR[facility]IE Transition Orders Medicare Certification Statement: I certify that [facility] care is medically necessary on a continuing basis for any of the conditions for which she/he is receiving care during hospitalization. Notify PCP of admission and forward orders to primary provider for signature. Other Notification Orders: Call PCP immediately if patient develops dyspnea, chest pain/tightness or edema. Additional Bowel Program Orders: If no BM after 2 days, nurse may give M.O.M. 30ml PO PRN and/or ducolax Supp 1 IN and/or JOSE MANUEL 250mg P.O., and/or senna 1-2 tabs PO. On day 3 nurse may give repeat above order until residents constipation is resolved. Medication Orders: PLEASE REFER TO THE DISCHARGE MEDICATION LIST. - Diet Type: Geriatric (Diabetic diet) - Therapies | Activity Rehabilitation Potential: Maximize functional status <Belkis Koch - Last Filed: 12/04/21 10:39> - Discharge Plan And Transition Orders Problem Reviewed?: Yes - SNF / [facility] Transition Orders Admit to (Facility): [facility] Discharge Diagnosis: 1. Closed Right Hip Fracture 2. COVID 19 3. Seizure disorder 4. History of coronary artery disease 5. Type 2 diabetes mellitus 6. Cognitive and neurobehavioral dysfunction following brain injury 7. BPH (benign prostatic hyperplasia) Medicare Certification Statement: I certify that [facility] care is medically necessary on a continuing basis for any of the conditions for which she/he is receiving care during hospitalization. Notify PCP of admission and forward orders to primary provider for signature. Weight on admission and: Weekly Call PCP immediately if weight increases by: 5 kg Other Notification Orders: Call PCP immediately if patient develops dyspnea, chest pain/tightness or edema. House Bowel Program: Yes Additional Bowel Program Orders: If no BM after 2 days, nurse may give M.O.M. 30ml PO PRN and/or ducolax Supp 1 IN and/or JOSE MANUEL 250mg P.O., and/or senna 1-2 tabs PO. On day 3 nurse may give repeat above order until residents constipation is resolved. Annual Influenza Vaccine (between Jul 06 and February 02): Yes Two-step PPD per [facility] [phone] or approved exception documents: Yes Treatments & Other Orders: PT/OT Medication Orders: PLEASE REFER TO THE DISCHARGE MEDICATION LIST. Insulin Orders?: Yes - Diet Type: No added sugar Texture: Regular Liquids: Thin May have monthly special meal: Yes - Therapies | Activity Therapy: Evaluation | Treat if indicated: PT, OT Rehabilitation Potential: Maximize functional status, Maintain present ADL Functional Activity: Activity as Tolerated Weight Bearing: Full Weight Assistance Devices: Walker <Stephany Albrecht - Last Filed: 12/04/21 11:39> - Discharge Plan And Transition Orders Disposition: 03 SNF DC/Xfer Condition: Stable Allergies and Adverse Reactions: Allergies Allergy/AdvReac Type Severity Reaction Status Date / Time No Known Drug Allergies Allergy Verified 11/06/21 19:19 Health Concerns: He admitted with a right hip fracture, repaired on 11/07. He has been seen by PT/OT and received Lovenox DVT prophylaxis, which he should continue through 12/19. He was diagnosed with COVID 19 on 11/11 then tested negative on 11/29 and 12/04. He received medications for seizures and has not recently had a seizure. Blood sugars were stable on a carb controlled diet and sliding scale insulin. He has a cognitive impairment 2/2 traumatic TBI and is at his baseline on discharge. Plan of Treatment: PT/OT Blood glucose ac/hs Seizure precautions Care Goals: Symptom management and stabilization are the goals Assessment: Instructions provided for the TRACIE due to pt's cognitive impairment related to his TBI. - Medications New Prescriptions: Acetaminophen [Tylenol] 650 mg PO Q4HR PRN #30 tablet PRN Reason: Pain 1 to 4 Ondansetron Odt [Zofran Odt] 4 mg TL Q6HR PRN #20 tablet PRN Reason: Nausea / Vomiting Phenytoin [Dilantin] 400 mg PO QPM #30 tab Phenytoin [Dilantin] 300 mg PO DAILY #90 tab Aspirin EC [Ecotrin] 81 mg PO 1200 #30 tablet Tamsulosin [Flomax] 0.4 mg PO DAILY #30 cap levETIRAcetam [Keppra] 1,000 mg PO BID #240 tablet lamoTRIgine [LaMICtal] 200 mg PO BID #120 tablet lamoTRIgine [LaMICtal] 25 mg PO BID #60 tablet Insulin Glargine [Lantus Solostar] 10 unit SUBQ QPM #30 ml Atorvastatin [Lipitor] 20 mg PO QPM #60 tablet Enoxaparin [Lovenox] 40 mg SUBQ DAILY #15 syr Insulin Aspart [NovoLOG] 2 unit SUBQ 0800,1200,1700,2100 #3 ml Finasteride [Proscar] 5 mg PO 1200 #30 tablet Multivitamin W/Minerals [Theragran M] 1 tab PO 1200 30 Days #30 tablet Topiramate 50 mg PO BID #30 tab Metoprolol Succinate [Toprol Xl] 12.5 mg PO BID #60 tablet Calcium Carbonate [Tums (Calcium Carbonate 500mg)] 500 mg PO 1200,1900 #40 tablet Insulin Orders - SNF Basal | Correction | Custom Orders: Diagnosis: Diabetes Initiate hypo and hyperglycemia protocols for BG <70 and BG >375. May check BG PRN for signs/symptoms of dysglycemia. Frequency of BG checks: [AC/Meal/HS] Basal Insulin: [x] Lantus 100 units / ml inject subq as follows: 10units subq QPM Correction Insulin: - No sliding scale Custom Dosing: Novolog 100 units/ml Insulin inject subq as follows: 2 units with meals and at 2100 <Stephany Albrecht - Last Filed: 12/04/21 11:39>"
[2021-12-04] MEDS ORDERED: MAGNESIUM CITRATE 296 ML BOTTLE PO ONE (07:33)
[2021-12-04] MEDS: INSULIN ASPART 300 UNIT/3 ML PEN SUBQ SCH ×2 (08:05→12:02)
[2021-12-04] MEDS: lamoTRIgine 100 MG TABLET PO SCH (08:05)
[2021-12-04] MEDS: lamoTRIgine 25 MG TABLET PO SCH (08:05)
[2021-12-04] MEDS: METOPROLOL SUCCINATE 25 MG TABLET PO SCH (08:05)
[2021-12-04] MEDS: ENOXAPARIN 40 MG/0.4 ML SYRINGE SUBQ SCH (08:05)
[2021-12-04] MEDS: PHENYTOIN ER 100 MG CAPSULE PO SCH (09:09)
[2021-12-04] MEDS: levETIRAcetam 250 MG TABLET PO SCH (09:09)
[2021-12-04] MEDS: TOPIRAMATE 25 MG TABLET PO SCH (09:09)
[2021-12-04 09:15] LABS: B. PARAPERTUSSIS- RESP PCR PAN NOT DETECTED; B. PERTUSSIS- RESP PCR PANEL NOT DETECTED; C. PNEUMONIAE- RESP PCR PANEL NOT DETECTED; CORONAVIRUS 229E-RESP PCR NOT DETECTED; CORONAVIRUS HKU1-RESP PCR NOT DETECTED; CORONAVIRUS NL63-RESP PCR NOT DETECTED; CORONAVIRUS OC43-RESP PCR NOT DETECTED; HUMAN METAPNEUMOVIRUS NOT DETECTED; INFLUENZA A- RESP PCR PANEL NOT DETECTED; INFLUENZA B - RESP PCR PANEL NOT DETECTED; M. PNEUMONIAE- RESP PCR PANEL NOT DETECTED; PARAINFLUENZA VIRUS 1 NOT DETECTED; PARAINFLUENZA VIRUS 2 NOT DETECTED; PARAINFLUENZA VIRUS 3 NOT DETECTED; PARAINFLUENZA VIRUS 4 NOT DETECTED; RHINOVIRUS/ENTEROVIRUS NOT DETECTED; RSV- RESP PCR PANEL NOT DETECTED; SARS-CoV-2 -RESP PCR PANEL NOT DETECTED
[2021-12-04] MEDS ORDERED: LACTULOSE 10 GM /15 ML UDC PO ONE (09:51)
[2021-12-04] MEDS: DOCUSATE SODIUM 250 MG CAPSULE PO SCH (11:27)
[2021-12-04] MEDS: SENNA 8.6 MG TABLET PO SCH (11:27)
[2021-12-04] MEDS: ASPIRIN EC 81 MG TABLET PO SCH (11:32)
[2021-12-04] MEDS: TAMSULOSIN 0.4 MG CAPSULE PO SCH (11:32)
[2021-12-04] MEDS: FINASTERIDE 5 MG TABLET PO SCH (11:32)
[2021-12-04] MEDS: CALCIUM CARBONATE CHEW 500 MG TABLET PO SCH (11:32)
[2021-12-04] MEDS: MULTIVITAMIN W/MINERALS TABLET PO SCH (11:37)
[2021-12-04] MEDS: polyethylene glycoL 3350 17 GM PACKET PO SCH (12:02)
== END 2021-12-04 13:04 | DRG 521 ==
LOC: ED 18:58 → MS2 21:18
PROVIDERS: ADMIT Internal Medicine; ATTEND Registered Nurse
PROC: 0SRR0JA Replacement of Right Hip Joint, Femoral Surface with Synthetic Substitute, Uncemented, Open Approach (ICD-10-PCS; principal; 2021-11-07 12:30)
DX: S72.001A Fracture of unspecified part of neck of right femur, initial encounter for closed fracture (principal); U07.1 COVID-19; G40.509 Epileptic seizures related to external causes, not intractable, without status epilepticus; E87.1 Hypo-osmolality and hyponatremia; G40.909 Epilepsy, unspecified, not intractable, without status epilepticus; I10 Essential (primary) hypertension; D62 Acute posthemorrhagic anemia; W19.XXXA Unspecified fall, initial encounter; S06.9X0S Unspecified intracranial injury without loss of consciousness, sequela; Z20.822 Contact with and (suspected) exposure to COVID-19; F06.8 Other specified mental disorders due to known physiological condition; Z79.84 Long term (current) use of oral hypoglycemic drugs; I25.10 Atherosclerotic heart disease of native coronary artery without angina pectoris; Z87.820 Personal history of traumatic brain injury; I25.2 Old myocardial infarction; E11.9 Type 2 diabetes mellitus without complications; E78.00 Pure hypercholesterolemia, unspecified; N40.0 Benign prostatic hyperplasia without lower urinary tract symptoms; Z66 Do not resuscitate; Z79.4 Long term (current) use of insulin; Z79.82 Long term (current) use of aspirin; Z79.899 Other long term (current) drug therapy; Z85.841 Personal history of malignant neoplasm of brain; Z86.010 Personal history of colon polyps; Z91.81 History of falling
CPT/HCPCS: 36415; 71045; 72170; 73502; 73552; 73560; 80048; 80053; 80175; 80177; 80185; 81003; 82306; 83036; 83690; 85025; 85610; 85730; 87631; 93005; 97110; 97162; 97166; 97530; 99283; 99285; A9270; C1713; J1650; J1815; J3370; J7120; Q0162; 0202U; 81001; 87086

== ENCOUNTER 2022-02-27 15:06 | Outpatient (CLI) | payer MEDICARE, OTHER | END 2022-02-27 15:07 | disposition home or self-care (01) | LOC: LAB.N 15:06 | PROVIDERS: ATTEND Physician Assistant Medical | DX: G40.909 Epilepsy, unspecified, not intractable, without status epilepticus (principal) | CPT/HCPCS: 80175 ==

== ENCOUNTER 2022-07-11 19:45 | Outpatient (CLI) | payer MEDICARE, OTHER ==
[2022-07-12 00:36] LABS: BASOPHILS # (AUTO) 0.1 10^3/uL (0.0-0.1); BASOPHILS % (AUTO) 0.8 %; EOSINOPHILS # (AUTO) 0.3 10^3/uL (0.0-0.7); EOSINOPHILS % (AUTO) 3.7 %; HCT - HEMATOCRIT 41.2 % (42.0-52.0); HGB - HEMOGLOBIN 13.3 g/dL (14.0-18.0); LYMPHOCYTES # (AUTO) 2.1 10^3/uL (1.5-3.5); LYMPHOCYTES % (AUTO) 23.9 %; MEAN CORPUSCULAR HEMOGLOBIN 30.2 pg (27.0-31.0); MEAN CORPUSCULAR HGB CONC 32.3 g/dL (32.0-36.0); MEAN CORPUSCULAR VOLUME 93.6 fL (80.0-94.0); MEAN PLATELET VOLUME 9.9 fL (7.4-11.4); MONOCYTES # (AUTO) 0.8 10^3/uL (0.0-1.0); MONOCYTES % (AUTO) 8.7 %; NEUTROPHILS # (AUTO) 5.4 10^3/uL (1.5-6.6); NEUTROPHILS % (AUTO) 62.6 %; PLT - PLATELET COUNT 350 10^3/uL (130-450); RED CELL DISTRIBUTION WIDTH 13.8 % (12.0-15.0); WHITE BLOOD COUNT 8.7 x10^3/uL (4.8-10.8)
[2022-07-12 04:27] LABS: ESTIMATED AVERAGE GLUCOSE 105 mg/dL (70-100); HEMOGLOBIN A1c% 5.3 % (4.27-6.07)
== END 2022-07-11 23:59 | disposition home or self-care (01) ==
LOC: LAB.R 19:45
DX: E11.9 Type 2 diabetes mellitus without complications (principal); R56.1 Post traumatic seizures; R53.1 Weakness
CPT/HCPCS: 80185; 83036; 85025

== ENCOUNTER 2022-07-28 07:45 | Outpatient (CLI) | payer MEDICARE, OTHER ==
[2022-07-28 08:17] LABS: BUN - BLOOD UREA NITROGEN 23 mg/dL (6-20); CARBON DIOXIDE - CO2 24 mmol/L (21-32); CHLORIDE 104 mmol/L (101-111); CHOL/HDL RATIO 2.8 (<5.0); CHOLESTEROL 114 mg/dL; CREATININE 0.9 mg/dL (0.6-1.2); GFR - MDRD 82 (>89); GLUCOSE 63 mg/dL (70-100); HDL CHOLESTEROL 41 mg/dL; LDL CHOLESTEROL,CALCULATED 64 mg/dL; LDL/HDL RATIO 1.6 (<3.6); PHENYTOIN (DILANTIN) 4.8 ug/mL; POTASSIUM 4.2 mmol/L (3.5-5.0); SODIUM 136 mmol/L (135-145); TRIGLYCERIDES 43 mg/dL; VLDL CHOLESTEROL 9 mg/dL
== END 2022-07-28 07:46 | disposition home or self-care (01) ==
LOC: LAB.R 07:45
PROVIDERS: ATTEND Hospitalist
DX: I10 Essential (primary) hypertension (principal); E78.5 Hyperlipidemia, unspecified; G40.909 Epilepsy, unspecified, not intractable, without status epilepticus
CPT/HCPCS: 80048; 80061; 80185; 83721

== ENCOUNTER 2022-09-28 08:00 | Outpatient (CLI) | payer MEDICARE, OTHER | END 2022-09-28 23:59 | disposition home or self-care (01) | LOC: LAB.R 08:00 | PROVIDERS: ATTEND Internal Medicine | DX: G40.909 Epilepsy, unspecified, not intractable, without status epilepticus (principal) | CPT/HCPCS: 80177; 80185 ==

== ENCOUNTER 2022-10-09 08:00 | Outpatient (CLI) | payer MEDICARE, OTHER | END 2022-10-09 23:59 | disposition home or self-care (01) | LOC: LAB.R 08:00 | DX: G40.909 Epilepsy, unspecified, not intractable, without status epilepticus (principal) | CPT/HCPCS: 80185 ==

== ENCOUNTER 2022-10-31 15:25 | Outpatient (CLI) | payer MEDICARE, OTHER | END 2022-10-31 15:26 | disposition home or self-care (01) | LOC: LAB.R 15:25 | PROVIDERS: ATTEND Internal Medicine | DX: G40.909 Epilepsy, unspecified, not intractable, without status epilepticus (principal) | CPT/HCPCS: 80185 ==

== ENCOUNTER 2022-11-02 11:02 | Outpatient (CLI) | payer MEDICARE, OTHER | END 2022-11-02 11:03 | disposition home or self-care (01) | LOC: LAB.R 11:02 | PROVIDERS: ATTEND Internal Medicine | DX: G40.909 Epilepsy, unspecified, not intractable, without status epilepticus (principal) | CPT/HCPCS: 80177 ==

== ENCOUNTER 2022-11-10 14:49 | Outpatient (CLI) | payer MEDICARE, OTHER | END 2022-11-10 14:50 | disposition home or self-care (01) | LOC: LAB.R 14:49 | PROVIDERS: ATTEND Internal Medicine | DX: G40.909 Epilepsy, unspecified, not intractable, without status epilepticus (principal) | CPT/HCPCS: 80185 ==

== ENCOUNTER 2023-01-11 08:00 | Outpatient (CLI) | payer MEDICARE, OTHER | END 2023-01-11 23:59 | disposition home or self-care (01) | LOC: LAB.R 08:00 | PROVIDERS: ATTEND Registered Nurse | DX: G40.909 Epilepsy, unspecified, not intractable, without status epilepticus (principal); Z51.81 Encounter for therapeutic drug level monitoring | CPT/HCPCS: 80177; 80185 ==

== ENCOUNTER 2023-02-28 08:00 | Outpatient (CLI) | payer MEDICARE, OTHER | END 2023-02-28 23:59 | disposition home or self-care (01) | LOC: LAB.R 08:00 | DX: G40.909 Epilepsy, unspecified, not intractable, without status epilepticus (principal) | CPT/HCPCS: 80177; 80185 ==

== ENCOUNTER 2023-03-03 18:44 | Outpatient (CLI) | payer MEDICARE, OTHER | END 2023-03-03 23:59 | disposition EMS.NT | LOC: EMS 18:44 | DX: R56.9 Unspecified convulsions (principal) ==

== ENCOUNTER 2023-03-08 08:00 | Outpatient (CLI) | payer MEDICARE, OTHER | END 2023-03-08 23:59 | disposition home or self-care (01) | LOC: LAB.R 08:00 | PROVIDERS: ATTEND Registered Nurse | DX: G40.909 Epilepsy, unspecified, not intractable, without status epilepticus (principal) | CPT/HCPCS: 80177; 80201; 81599 ==

== ENCOUNTER 2023-03-29 11:39 | Outpatient (CLI) | payer MEDICARE, OTHER ==
[2023-03-29 12:19] LABS: ESTIMATED AVERAGE GLUCOSE 111 mg/dL (70-100); HEMOGLOBIN A1c% 5.5 % (4.27-6.07)
== END 2023-03-29 11:40 | disposition home or self-care (01) ==
LOC: LAB.R 11:39
PROVIDERS: ATTEND Registered Nurse
DX: E11.9 Type 2 diabetes mellitus without complications (principal)
CPT/HCPCS: 83036

== ENCOUNTER 2023-06-26 14:10 | Outpatient (CLI) | payer MEDICARE, OTHER ==
[2023-06-26 14:24] LABS: BILIRUBIN,URINE NEGATIVE (NEGATIVE); GLUCOSE, URINE (UA) NEGATIVE (NEGATIVE); KETONES,URINE (UA) NEGATIVE (NEGATIVE); LEUKOCYTE ESTERASE, URINE LARGE (NEGATIVE); NITRITE,URINE POSITIVE (NEGATIVE); OCCULT BLOOD,URINE NEGATIVE (NEGATIVE); PROTEIN,URINE NEGATIVE (NEGATIVE); UROBILINOGEN,URINE 0.2 (NORMAL) E.U./dL (NORMAL)
[2023-06-26 14:32] LABS: CLARITY,URINE SL. CLOUDY (CLEAR)
[2023-06-26 14:33] LABS: BACTERIA,URINE Moderate /HPF (None Seen); RBC,URINE 0-5 /HPF (0-5); SQUAMOUS EPITHELIAL CELL,UR NONE SEEN (<= Few); WBC CLUMPS,URINE PRESENT; WBC,URINE >25 /HPF (0-3)
== END 2023-06-26 14:11 | disposition home or self-care (01) ==
LOC: LAB 14:10 → LAB.R 14:11
PROVIDERS: ATTEND Registered Nurse
DX: N39.0 Urinary tract infection, site not specified (principal)
CPT/HCPCS: 81001; 87086

== ENCOUNTER 2023-10-06 08:00 | Outpatient (CLI) | payer MEDICARE, OTHER | END 2023-10-06 23:59 | disposition home or self-care (01) | LOC: LAB.R 08:00 | PROVIDERS: ATTEND Registered Nurse | DX: G40.909 Epilepsy, unspecified, not intractable, without status epilepticus (principal) | CPT/HCPCS: 80177; 80185; 80201; 81599 ==

== ENCOUNTER 2023-11-30 09:06 | Outpatient (CLI) | payer MEDICARE, OTHER | END 2023-11-30 09:07 | disposition home or self-care (01) | LOC: LAB.R 09:06 | PROVIDERS: ATTEND Registered Nurse | DX: G40.909 Epilepsy, unspecified, not intractable, without status epilepticus (principal) | CPT/HCPCS: 80177; 80185; 80201; 81599 ==

== ENCOUNTER 2024-01-01 10:25 | Outpatient (CLI) | payer MEDICARE, OTHER ==
--- NOTE | 2024-01-01 20:40 | XRAY Report ---
PROCEDURE: Chest 2V INDICATIONS: DIFFICULTY BREATHING TECHNIQUE: 2 views of the chest were acquired. COMPARISON: 11/24/2021. FINDINGS: Surgical changes and devices: None. Lungs and pleura: No pleural effusions or pneumothorax. Ill-defined airspace opacity in the left low er lung field is seen concerning for left lower lobe infiltrate. Right lung is clear. Mediastinum: Mediastinal contours appear normal. Heart size is enlarged. Bones and chest wall: No suspicious bony lesions. Overlying soft tissues appear unremarkable. IMPRESSION: Finding is suggestive of small to moderate-sized left lower lobe infiltrate. Reviewed by: Giovanni Grnada MD on 01/01/2024 8:39 PM PST Approved by: Giovanni Granda MD on 01/01/2024 8:39 PM PST Station ID: [id number]
== END 2024-01-01 10:26 | disposition home or self-care (01) ==
LOC: DI 10:25
PROVIDERS: ATTEND Registered Nurse
DX: R06.89 Other abnormalities of breathing (principal)

== ENCOUNTER 2024-01-02 13:59 | Outpatient (CLI) | payer MEDICARE, OTHER ==
[2024-01-02 14:16] LABS: BASOPHILS # (AUTO) 0.1 10^3/uL (0.0-0.1); BASOPHILS % (AUTO) 0.7 %; EOSINOPHILS # (AUTO) 0.4 10^3/uL (0.0-0.7); EOSINOPHILS % (AUTO) 5.1 %; HCT - HEMATOCRIT 43.7 % (42.0-52.0); HGB - HEMOGLOBIN 13.5 g/dL (14.0-18.0); LYMPHOCYTES # (AUTO) 1.3 10^3/uL (1.5-3.5); LYMPHOCYTES % (AUTO) 15.6 %; MEAN CORPUSCULAR HEMOGLOBIN 28.9 pg (27.0-31.0); MEAN CORPUSCULAR HGB CONC 30.9 g/dL (32.0-36.0); MEAN CORPUSCULAR VOLUME 93.6 fL (80.0-94.0); MEAN PLATELET VOLUME 9.7 fL (7.4-11.4); MONOCYTES # (AUTO) 0.9 10^3/uL (0.0-1.0); MONOCYTES % (AUTO) 10.8 %; NEUTROPHILS # (AUTO) 5.7 10^3/uL (1.5-6.6); NEUTROPHILS % (AUTO) 67.6 %; PLT - PLATELET COUNT 281 10^3/uL (130-450); RED BLOOD COUNT 4.67 10^6/uL (4.70-6.10); RED CELL DISTRIBUTION WIDTH 15.3 % (12.0-15.0); WHITE BLOOD COUNT 8.4 x10^3/uL (4.8-10.8)
[2024-01-02 16:36] LABS: ALBUMIN/GLOBULIN RATIO 0.9 (1.0-2.2); BILIRUBIN,TOTAL 0.3 mg/dL (0.2-1.0); CALCIUM 9.6 mg/dL (8.5-10.3); CREATININE 0.9 mg/dL (0.6-1.3); PHENYTOIN (DILANTIN) 15.7 ug/mL; POTASSIUM 4.1 mmol/L (3.5-4.5); TOTAL PROTEIN 8.7 g/dL (6.4-8.9)
== END 2024-01-02 14:00 | disposition home or self-care (01) ==
LOC: LAB 13:59 → LAB.R 14:00
PROVIDERS: ATTEND Registered Nurse
DX: I25.10 Atherosclerotic heart disease of native coronary artery without angina pectoris (principal); G40.909 Epilepsy, unspecified, not intractable, without status epilepticus; I10 Essential (primary) hypertension
CPT/HCPCS: 80053; 80177; 80185; 80201; 81599; 85025

== ENCOUNTER 2024-01-09 15:18 | Outpatient (CLI) | payer MEDICARE, OTHER ==
--- NOTE | 2024-01-09 16:16 | XRAY Report ---
PROCEDURE: Chest 2V INDICATIONS: COUGH TECHNIQUE: 2 views of the chest were acquired. COMPARISON: None. FINDINGS: Surgical changes and devices: None. Lungs and pleura: No pleural effusions or pneumothorax. Left lung process has cleared, potentially r epresenting resolution of unilateral interstitial pulmonary edema or viral pneumonitis. Mild diffuse interstitial prominence. Mediastinum: Mediastinal contours appear normal. Heart size is normal. Bones and chest wall: No suspicious bony lesions. Overlying soft tissues appear unremarkable. Upper abdomen: As before, the transverse colon appears distended and gas-filled. IMPRESSION: Interval resolution of a process in the left lung potentially represent unilateral interstitial pulmo nary edema versus viral pneumonitis. Distended, gas-filled transverse colon. Consider colonic ileus. Reviewed by: Roman Butler MD on 01/09/2024 4:15 PM PST Approved by: Roman Butler MD on 01/09/2024 4:15 PM PST Station ID: [id number]
--- NOTE | 2024-01-09 21:45 | XRAY Report ---
PROCEDURE: Abdomen 1 V INDICATIONS: ABDOMINAL DISTENTION TECHNIQUE: 1 view of the abdomen were acquired. COMPARISON: 01/07/2024 FINDINGS: Surgical changes and devices: None. Bowel: Large amount of fecal debris throughout the associated with significant gaseous distention of the transverse colon and pattern similar to the prior exam Soft tissues: No masses; visualized solid organ contours appear normal in size. No suspicious abdom inal calcifications. Bones: No suspicious bony abnormalities. Generalized decreased osseous mineralization present. Righ t hip arthroplasty IMPRESSION: Large amount of debris throughout the colon associated with transverse colon gaseous distention Reviewed by: Medardo King MD on 01/09/2024 8:44 PM AKST Approved by: Medardo King MD on 01/09/2024 8:44 PM AKST Station ID: [id number]
== END 2024-01-09 15:19 | disposition home or self-care (01) ==
LOC: DI 15:18
PROVIDERS: ATTEND Registered Nurse
DX: R05.9 Cough, unspecified (principal); R14.0 Abdominal distension (gaseous)

== ENCOUNTER 2024-01-13 08:00 | Outpatient (CLI) | payer MEDICARE, OTHER ==
[2024-01-13 16:44] LABS: BASOPHILS % (AUTO) 0.3 %; EOSINOPHILS # (AUTO) 0.1 10^3/uL (0.0-0.7); EOSINOPHILS % (AUTO) 0.5 %; HCT - HEMATOCRIT 48.6 % (42.0-52.0); HGB - HEMOGLOBIN 15.1 g/dL (14.0-18.0); LYMPHOCYTES # (AUTO) 1.5 10^3/uL (1.5-3.5); LYMPHOCYTES % (AUTO) 10.1 %; MEAN CORPUSCULAR HEMOGLOBIN 28.7 pg (27.0-31.0); MEAN CORPUSCULAR HGB CONC 31.1 g/dL (32.0-36.0); MEAN CORPUSCULAR VOLUME 92.4 fL (80.0-94.0); MEAN PLATELET VOLUME 9.8 fL (7.4-11.4); MONOCYTES % (AUTO) 6.6 %; NEUTROPHILS % (AUTO) 82.2 %; PLT - PLATELET COUNT 396 10^3/uL (130-450); RED BLOOD COUNT 5.26 10^6/uL (4.70-6.10); WHITE BLOOD COUNT 14.6 x10^3/uL (4.8-10.8)
[2024-01-13 17:26] LABS: ALBUMIN 3.9 g/dL (3.2-5.5); ALBUMIN/GLOBULIN RATIO 0.9 (1.0-2.2); BILIRUBIN,TOTAL 0.4 mg/dL (0.2-1.0); CALCIUM 9.8 mg/dL (8.5-10.3); CREATININE 0.8 mg/dL (0.6-1.3); POTASSIUM 2.4 mmol/L (3.5-4.5); TOTAL PROTEIN 8.3 g/dL (6.4-8.9)
== END 2024-01-13 23:59 | disposition home or self-care (01) ==
LOC: LAB.R 08:00
DX: I10 Essential (primary) hypertension (principal); G40.909 Epilepsy, unspecified, not intractable, without status epilepticus
CPT/HCPCS: 80053; 85025

== ENCOUNTER 2024-01-13 18:29 | Outpatient (CLI) | payer MEDICARE, OTHER | END 2024-01-13 18:30 | disposition critical access hospital (66) | LOC: EMS 18:29 | DX: E87.6 Hypokalemia (principal); R14.0 Abdominal distension (gaseous) | CPT/HCPCS: A0425; A0429 ==

== ENCOUNTER 2024-01-13 18:35 | Emergency (ER) | payer MEDICARE, OTHER ==
--- NOTE | 2024-01-13 19:13 | ED Physician Documentation ---
History of Present Illness - Stated complaint Stated Complaint: ABNORMAL LABS - Chief complaint Chief Complaint: General - History obtained from History obtained from: Patient, EMS - Additonal information Additional information: 78-year-old gentleman with history of dementia, type 2 diabetes, coronary disease, seizure disorder presents by ambulance for low potassium. He had outpatient labs done today demonstrating a potassium of 2.4. It is unclear why he is hypokalemic, I do not see any new medications or diuretics on his medication list. And his history is unrevealing because of his dementia. It is also noted that he is abdomen is distended, it is unclear the acuity of this. Of note he had x-rays of the chest and abdomen done few days ago showing significant colonic distention potentially from constipation or ileus. PD PAST MEDICAL HISTORY - Past Medical History Past Medical History: Yes Cardiovascular: Hypertension, High cholesterol, Coronary artery disease Respiratory: None Neuro: Seizure disorder, Other Endocrine/Autoimmune: Type 2 diabetes GI: Colon polyps : Benign prostate hypertrophy, Indwelling catheter HEENT: None Psych: None Musculoskeletal: None Derm: None - Past Surgical History Past Surgical History: Yes General: Colonoscopy Neuro: Craniotomy - Present Medications Home Medications: Ambulatory Orders Medication Instructions Recorded Confirmed Metformin HCl [Fortamet] 1,000 mg PO BIDWM #30 11/09/17 11/06/21 glipiZIDE ER [Glucotrol Xl] 2.5 mg PO DAILY 12/19/17 11/06/21 Acetaminophen [Tylenol] 650 mg PO Q4HR PRN #30 tablet 12/04/21 Aspirin EC [Ecotrin] 81 mg PO 1200 #30 tablet 12/04/21 Atorvastatin [Lipitor] 20 mg PO QPM #60 tablet 12/04/21 Calcium Carbonate [Tums (Calcium 500 mg PO 1200,1900 #40 tablet 12/04/21 Carbonate 500mg)] Enoxaparin [Lovenox] 40 mg SUBQ DAILY #15 syr 12/04/21 Finasteride [Proscar] 5 mg PO 1200 #30 tablet 12/04/21 Insulin Glargine [Lantus Solostar] 10 unit SUBQ QPM #30 ml 12/04/21 Metoprolol Succinate [Toprol Xl] 12.5 mg PO BID #60 tablet 12/04/21 Multivitamin W/Minerals [Theragran 1 tab PO 1200 30 Days #30 tablet 12/04/21 M] Ondansetron Odt [Zofran Odt] 4 mg TL Q6HR PRN #20 tablet 12/04/21 Phenytoin [Dilantin] 300 mg PO DAILY #90 tab 12/04/21 Phenytoin [Dilantin] 400 mg PO QPM #30 tab 12/04/21 Tamsulosin [Flomax] 0.4 mg PO DAILY #30 cap 12/04/21 Topiramate 50 mg PO BID #30 tab 12/04/21 Zinc Oxide 20% Oint [Zinc Oxide] 1 applic TOP PRN PRN 12/04/21 lamoTRIgine [LaMICtal] 25 mg PO BID #60 tablet 12/04/21 lamoTRIgine [LaMICtal] 200 mg PO BID #120 tablet 12/04/21 levETIRAcetam [Keppra] 1,000 mg PO BID #240 tablet 12/04/21 Blood Sugar Diagnostic [Glucometer 4 each MC DAILY #120 strip 12/05/21 Strips] Blood-Glucose Meter [Glucometer] 1 each MC QID #1 each 12/05/21 Lancets [Blood Lancets] 1 each MC ACHS #120 each 12/05/21 Insulin Lispro [Humalog Kwikpen 2 unit SUBQ ACHS #1 each 12/09/21 U-100] - Allergies Allergies/Adverse Reactions: Allergies Allergy/AdvReac Type Severity Reaction Status Date / Time No Known Drug Allergies Allergy Verified 01/13/24 18:46 - Social History Does the pt smoke?: No Smoking Status: Never smoker Does the pt drink ETOH?: Yes Does the pt have substance abuse?: No - Immunizations Immunizations are current?: Yes - POLST Patient has POLST: Yes POLST Status: Limited Interventions PD ED PE NORMAL - Vitals Vital signs reviewed: Yes - General General: Other (He is alert and oriented to person and place but not time or events.) - HEENT HEENT: Other (Very poor dentition) - Neck Neck: Supple, no meningeal sign, No bony TTP - Cardiac Cardiac: RRR, No murmur - Respiratory Respiratory: No respiratory distress, Clear bilaterally - Abdomen Abdomen: Other (His abdomen is grossly distended and firm with some diffuse tenderness.) - Neuro Neuro: general ophthalmologist 2-12 intact Eye Opening: Spontaneous Motor: Obeys Commands Verbal: Confused GCS Score: 14 Results - Vitals Vitals: Vital Signs - 24 hr 01/13/24 18:41 Temperature 36.6 C Heart Rate 91 Respiratory 20 Rate Blood Pressure 155/89 H O2 Saturation 95 Oxygen O2 Source [] Room air O2 Source Room air - EKG (time done) 1751 EKG releavant findings:: EKG personally interpreted by author of this note. Relevant findings are: Rate: Rate (enter#) (92) Rhythm: NSR Britton: LAD QRS: Low voltage Ischemia: Non specific changes. No: ST elevation c/w ischemia - Labs Labs: Laboratory Tests 01/13/24 01/13/24 19:20 19:20 PT 13.0 H INR 1.2 Phenytoin 12.1 - Rads (name of study) CT AP Relevant Findings:: Final report received, Discussed with rads, EMP independent interpretation of test PD Medical Decision Making - ED course ED course: 78-year-old gentleman with severe dementia presents with hypokalemia and significant abdominal distention. It is unclear when his last bowel movement was but he has had several x-rays over the last week with significant constipation and gaseous distention of the colon. His abdomen is quite distended and tender and he went over for CT scanning. Note I did not obtain basic labs on this visit as he had labs earlier in the day notable for a CBC with white count of 14,000, no anemia, and chemistries with elevated BUN at 24 and potassium of 2.4. I ordered both oral IV and oral potassium supplementation. When he got back from CT I took a look at it and he has significant stool load and did a soapsuds enema shortly after which the radiologist called me and felt that he had a rectosigmoid volvulus causing the obstruction. I spoke with the daughter twice by phone and she noted to me that previous wishes were for no surgeries. Subsequently I spoke with our on-call surgeon, Dr. Avendano who felt that without a surgery this patient's has a now terminal diagnosis. Attempted to admit the patient at 9:29 PM, but I am notified that there are no beds in the hospital so he will be boarding in the emergency department at this time. We will keep him comfortable, order IV fluids and potassium supplementation with repeat labs. Daughter will reconsider surgery in the morning noting that Dr. Avendano felt that it probably could be held off anyway due to his profound hypokalemia needing that fixed. Departure - Departure Disposition: 66 [facility] DC/Xfer Clinical Impression: Volvulus of descending colon, Colonic obstruction, Hypokalemia Condition: Serious Forms: PCP List
[2024-01-13] MEDS: POTASSIUM CHLOR 10 MEQ/100 ML 10 MEQ/100 ML BAG IV STA ×2 (19:23→20:49)
[2024-01-13] MEDS: LACTATED RINGERS 1,000 ML IV STA (19:23)
[2024-01-13] MEDS: POTASSIUM BICARB 25 MEQ TABLET PO STA (19:23)
[2024-01-13 19:33] LABS: INR 1.2 (0.8-1.2)
[2024-01-13] MEDS ORDERED: iohexoL-300 100 ML VIAL ONE (19:41)
[2024-01-13] MEDS: iohexoL-300 100 ML VIAL IVP ONE (20:37)
--- NOTE | 2024-01-13 21:12 | CT Report ---
PROCEDURE: Abdomen/Pelvis W INDICATIONS: IV only, abdominal distention CONTRAST: 100 ML OMNI 300 TECHNIQUE: After the administration of intravenous contrast, a CT scan of the abdomen and pelvis was performed. Images were recorded and evaluated at appropriate window settings. Reformats: coronal and sagittal. F or radiation dose reduction, the following was used: automated exposure control, adjustment of mA and /or kV according to patient size. COMPARISON: Abdomen radiographs 01/09/2024, CT abdomen/pelvis 01/09/2018 FINDINGS: Image quality: Diagnostic. Lower chest: Band like atelectasis or scarring is seen at the left lung base.. Liver: No solid mass. Gallbladder and biliary tree: Cholelithiasis without wall thickening. No biliary dilation. Spleen: No splenomegaly. Pancreas: No pancreatic ductal dilation. Adrenals: No adrenal nodule. Kidneys and ureters: No hydronephrosis. No renal cystic lesion which requires follow up. No solid mas s. Stomach, bowel and peritoneum: Small amount of fluid is seen in the distal esophagus. Small bowel loo ps and stomach are opacifying dilated. Mild rectal wall thickening is seen in the pelvis. There is di ffuse markedly dilated and redundant appearance of the large bowel from the ileocecal valve with pérez sition point at the rectosigmoid junction, where there is a whorled appearance on coronal images. Eff acement enteric edema adjacent to the distal sigmoid colon. No ascites or pneumoperitoneum. Lymph nodes: No central or retroperitoneal adenopathy. Vessels: No infrarenal aortic aneurysm. PELVIS Reproductive organs: Unremarkable. Bladder: No abnormal wall thickening, accounting for underdistention. Pelvic lymph nodes: No pelvic adenopathy by size criteria. Bones: No aggressive osseous abnormality. Posterior changes from a right hip arthroplasty. Mild chron ic compression fractures at L3 and L4 appear unchanged. Other: No significant ventral or inguinal hernia. IMPRESSION: Diffusely markedly dilated large bowel with transition point at the rectosigmoid junction, where ther e is a whorled appearance on coronal images that could indicate volvulus. No closed loop obstruction is seen. Findings were discussed with the referring physician, Dr. Wolf, by telephone on 01/13/2024 at 9:11 P M. Reviewed by: Aristides Parks MD on 01/13/2024 9:11 PM PDT Approved by: Aristides Parks MD on 01/13/2024 9:11 PM PDT Station ID: [id number]
[2024-01-13] MEDS: HYDROmorphone 1 MG/ML CARPUJECT IVP STA ×2 (21:38)
[2024-01-13] MEDS: POTASSIUM CHLOR 10 MEQ/100 ML 10 MEQ/100 ML BAG IV SCH (21:55)
[2024-01-13] MEDS: levETIRAcetam 500 MG/5 ML VIAL IVP SCH (23:39)
[2024-01-14 06:43] LABS: BASOPHILS % (AUTO) 0.2 %; EOSINOPHILS # (AUTO) 0.1 10^3/uL (0.0-0.7); EOSINOPHILS % (AUTO) 0.5 %; HCT - HEMATOCRIT 47.3 % (42.0-52.0); HGB - HEMOGLOBIN 14.9 g/dL (14.0-18.0); LYMPHOCYTES # (AUTO) 1.4 10^3/uL (1.5-3.5); LYMPHOCYTES % (AUTO) 8.4 %; MEAN CORPUSCULAR HGB CONC 31.5 g/dL (32.0-36.0); MEAN CORPUSCULAR VOLUME 92.2 fL (80.0-94.0); MEAN PLATELET VOLUME 9.3 fL (7.4-11.4); MONOCYTES # (AUTO) 1.1 10^3/uL (0.0-1.0); MONOCYTES % (AUTO) 6.8 %; NEUTROPHILS # (AUTO) 13.8 10^3/uL (1.5-6.6); NEUTROPHILS % (AUTO) 83.7 %; PLT - PLATELET COUNT 371 10^3/uL (130-450); RED BLOOD COUNT 5.13 10^6/uL (4.70-6.10); RED CELL DISTRIBUTION WIDTH 15.1 % (12.0-15.0); WHITE BLOOD COUNT 16.4 x10^3/uL (4.8-10.8)
[2024-01-14 07:02] LABS: CALCIUM 9.4 mg/dL (8.5-10.3); CREATININE 0.8 mg/dL (0.6-1.3); POTASSIUM 2.5 mmol/L (3.5-4.5)
--- NOTE | 2024-01-14 07:14 | ED Physician Documentation ---
ED Addendum - Addendum Addendum: 01/14/24 18:15 Patient 78-year-old male received a signout from off going physician, please see their documentation for further detail. In short 78-year-old male with advanced dementia presenting for evaluation for abnormal labs and subsequently identified as having sigmoid volvulus. Uncertain time of onset. Patient arrived with severe hypokalemia. Initial report is patient is DNR comfort care however was evaluated by surgical service here in the emergency department. Discussed a palliative colonoscopy versus surgical intervention. Multiple family conferences had with myself, patient's daughter who identified herself is HANNAH, son, 2 other sons via phone. Multiple family conferences happened with Dr. Salinas. After multiple conversations with family at this time would like to pursue more aggressive intervention including surgical resection of the bowel if it were necessary. Care was discussed with the surgical service at [facility] who graciously agreed to accept the patient. Did order for increased potassium, Rocephin, Flagyl. Repeat labs somewhat reassuring and patient's potassium is improved. NG tube was placed. Signed out to oncoming physician awaiting transfer.
[2024-01-14] MEDS: PHENYTOIN IV SCH (08:36)
[2024-01-14] MEDS: SODIUM CHLORIDE 0.9% IV SCH (08:36)
--- NOTE | 2024-01-14 11:42 | CONSULTATION NOTE ---
Referring Provider Name of Referring Provider:: ED (Carlos Alberto Wolf) Consult Date: 01/14/24 Chief Complaint - Chief Complaint Chief Complaint: abdominal pain, distension, concern for sigmoid volvulus History of Present Illness - History Obtained From Records Reviewed: yes History obtained from: patient, family, chart, ED providers (Luciano Carcamo) Exam Limitations: patient has severe dementia - History of Present Illness HPI Comment/Other: Initial History limited by patient's severe dementia. He states his abdomen "probably hurts". Denies nausea, pain elsewhere. In discussion with the patient's daughter (BEVERLY Cole), and two sons (via phone) the patient has not been feeling well for several weeks and has had increasing abdominal pain/distension for at least the last one week. His last BM is unknown. He lives in a long-term and has been receiving enemas for possible constipation. CT last night concerning for sigmoid volvulus with very distended proximal colon. History - Past Medical History Cardiovascular: reports: Hypertension, High cholesterol, Coronary artery disease Respiratory: reports: None Neuro: reports: Seizure disorder, Other Endocrine/Autoimmune: reports: Type 2 diabetes GI: reports: Colon polyps : reports: Benign prostate hypertrophy, Indwelling catheter HEENT: reports: None Psych: reports: None Musculoskeletal: reports: None Derm: reports: None MRSA Hx?: No - Past Surgical History General: reports: Colonoscopy Neuro: reports: Craniotomy Other past surgical history: no significant past abdominal surgery - Family & Social History Family History: Mother: (Father had CHF), Cancer (Bone cancer), Father: , CAD Living Situation: With family Social History Notes: He was born in [place]. Served 2 years in [employer]. 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 He was never a smoker and only tried it once and no hx of alcohol abuse. He is currently living in [facility]. - Substance History Use: Uses substance without health or social issues: NONE - POLST Patient has POLST: Yes POLST Status: Limited Interventions Meds/Allgy - Home Medications Home Medications: Ambulatory Orders Medication Instructions Recorded Confirmed Metformin HCl [Fortamet] 1,000 mg PO BIDWM #30 11/09/17 11/06/21 glipiZIDE ER [Glucotrol Xl] 2.5 mg PO DAILY 12/19/17 11/06/21 Acetaminophen [Tylenol] 650 mg PO Q4HR PRN #30 tablet 12/04/21 Aspirin EC [Ecotrin] 81 mg PO 1200 #30 tablet 12/04/21 Atorvastatin [Lipitor] 20 mg PO QPM #60 tablet 12/04/21 Calcium Carbonate [Tums (Calcium 500 mg PO 1200,1900 #40 tablet 12/04/21 Carbonate 500mg)] Enoxaparin [Lovenox] 40 mg SUBQ DAILY #15 syr 12/04/21 Finasteride [Proscar] 5 mg PO 1200 #30 tablet 12/04/21 Insulin Glargine [Lantus Solostar] 10 unit SUBQ QPM #30 ml 12/04/21 Metoprolol Succinate [Toprol Xl] 12.5 mg PO BID #60 tablet 12/04/21 Multivitamin W/Minerals [Theragran 1 tab PO 1200 30 Days #30 tablet 12/04/21 M] Ondansetron Odt [Zofran Odt] 4 mg TL Q6HR PRN #20 tablet 12/04/21 Phenytoin [Dilantin] 300 mg PO DAILY #90 tab 12/04/21 Phenytoin [Dilantin] 400 mg PO QPM #30 tab 12/04/21 Tamsulosin [Flomax] 0.4 mg PO DAILY #30 cap 12/04/21 Topiramate 50 mg PO BID #30 tab 12/04/21 Zinc Oxide 20% Oint [Zinc Oxide] 1 applic TOP PRN PRN 12/04/21 lamoTRIgine [LaMICtal] 25 mg PO BID #60 tablet 12/04/21 lamoTRIgine [LaMICtal] 200 mg PO BID #120 tablet 12/04/21 levETIRAcetam [Keppra] 1,000 mg PO BID #240 tablet 12/04/21 Blood Sugar Diagnostic [Glucometer 4 each DAILY #120 strip 12/05/21 Strips] Blood-Glucose Meter [Glucometer] 1 each QID #1 each 12/05/21 Lancets [Blood Lancets] 1 each ACHS #120 each 12/05/21 Insulin Lispro [Humalog Kwikpen 2 unit SUBQ ACHS #1 each 12/09/21 U-100] - Allergies Allergies/Adverse Reactions: Allergies Allergy/AdvReac Type Severity Reaction Status Date / Time No Known Drug Allergies Allergy Verified 01/13/24 18:46 Review of Systems - Constitutional Constitutional: reports: Other (unable to obtain due to dementia) Exam - Vital Signs Vital Signs: Vital Signs x48h Pulse Resp BP Pulse Ox O2 Flow Rate 01/14/24 07:00 102 H 22 161/91 H 96 2 01/14/24 05:00 93 25 H 166/97 H 96 2 - Physical Exam Comments/Other: GEN: No acute distress, appears younger than stated age, awake and confused HEENT: NCAT, MMM, EOMI, poor dentition NEURO: CN II-XII grossly intact, no obvious focal deficits CV: RRR PULM: non labored, on RA ABD: firm, markedly distended abodmen with diffuse mild, tenderness to palpation. +tympany, crenshaw in place CIRCULATORY: no clubbing, cyanosis, or edema SKIN: no lesions appreciated LYMPH: no obvious lymphadenopathy MSK: 4/4 strength in all extremities Conclusion and Plan - Lab Results Laboratory Results 01/14/24 06:38: Sodium 140, Potassium 2.5 L*, Chloride 105, Carbon Dioxide 25, Anion Gap 10.0, BUN 22 H, Creatinine 0.8, Estimated GFR (MDRD) 94, Glucose 161 H, Calcium 9.4 01/14/24 06:38: WBC 16.4 H, RBC 5.13, Hgb 14.9, Hct 47.3, MCV 92.2, MCH 29.0, MCHC 31.5 L, RDW 15.1 H, Plt Count 371, MPV 9.3, Neut # (Auto) 13.8 H, Lymph # (Auto) 1.4 L, Dickinson # (Auto) 1.1 H, Eos # (Auto) 0.1, Baso # (Auto) 0.0, Absolute Nucleated RBC 0.00, Nucleated RBC % 0.0 01/13/24 19:20: PT 13.0 H, INR 1.2 01/13/24 19:20: Phenytoin 12.1 - Diagnostic Imaging Results Diagnostic Imaging Results: positive: Final report reviewed Diagnostic Imaging Results Comments: CT abd/pelvis 01/12 consistent with sigmoid volvulus. Markedly distended colon. No free air. I personally reviewed the images and report from this study. - Consultation Note Consultation Note: This is a 78 y/o M with: 1. sigmoid volvulus - ED provider and myself explained options including comfort care and colonoscopy/surgical intervention with the family. The patient is at significantly increased risk for surgical complication given his hypokalemia and prolonged illness (though exact duration of symptoms is unknown). Family is deciding how aggressive they wish to be in his care. 2. hypokalemia, severe dementia, DM - these comorbidities increase the patient's risk for surgery 1430 update I again explained options including comfort care and aggressive treatment with colonoscopy and surgery. After extensive discussion about possible outcomes, through shared decision making, the family would like to be aggressive in his care and would like him to have colonoscopy and surgery. I shared this decision with the ED provider and he is working toward getting the patient transferred to a higher level of care given that he will likely require prolonged hospitalization and ICU services that exceed those available at our critical access hospital. - I agree with continued aggressive resuscitation of hypokalemia and broad spectrum antibiotics.
[2024-01-14] MEDS: POTASSIUM CHLOR 10 MEQ/100 ML 10 MEQ/100 ML BAG IV SCH ×2 (12:06→19:31)
[2024-01-14] MEDS: D5.45NS W/20 MEQ KCL 1,000 ML IV STA (12:12)
[2024-01-14] MEDS: ONDANSETRON 4 MG/2 ML VIAL IVP PRN (12:32)
[2024-01-14] MEDS: HYDROmorphone 1 MG/ML CARPUJECT IVP PRN (12:32)
[2024-01-14 16:06] LABS: BASOPHILS % (AUTO) 0.2 %; EOSINOPHILS % (AUTO) 0.2 %; HGB - HEMOGLOBIN 14.6 g/dL (14.0-18.0); LYMPHOCYTES % (AUTO) 4.8 %; MEAN CORPUSCULAR HEMOGLOBIN 28.6 pg (27.0-31.0); MEAN CORPUSCULAR HGB CONC 31.1 g/dL (32.0-36.0); MEAN CORPUSCULAR VOLUME 92.2 fL (80.0-94.0); MEAN PLATELET VOLUME 9.4 fL (7.4-11.4); MONOCYTES # (AUTO) 1.3 10^3/uL (0.0-1.0); MONOCYTES % (AUTO) 6.6 %; NEUTROPHILS # (AUTO) 17.2 10^3/uL (1.5-6.6); NEUTROPHILS % (AUTO) 87.7 %; PLT - PLATELET COUNT 404 10^3/uL (130-450); WHITE BLOOD COUNT 19.6 x10^3/uL (4.8-10.8)
[2024-01-14 16:19] LABS: ALBUMIN 3.7 g/dL (3.2-5.5); ALBUMIN/GLOBULIN RATIO 0.8 (1.0-2.2); BILIRUBIN,TOTAL 0.5 mg/dL (0.2-1.0); CALCIUM 9.2 mg/dL (8.5-10.3); CREATININE 0.8 mg/dL (0.6-1.3); POTASSIUM 3.1 mmol/L (3.5-4.5); TOTAL PROTEIN 8.1 g/dL (6.4-8.9)
[2024-01-14] MEDS: cefTRIAXone 1 GM in SODIUM CHLORIDE 0.9% MINIBAG 100 ML IV STA (16:52)
[2024-01-14] MEDS: metroNIDAZOLE 500 MG/100 ML 500 MG/100 ML BAG IV ONE (16:53)
[2024-01-14] MEDS: MIDAZOLAM 2 MG/2 ML VIAL IVP STA (16:58)
[2024-01-14] MEDS: POTASSIUM CHLOR 10 MEQ/100 ML 10 MEQ/100 ML BAG IV STA (17:14)
--- NOTE | 2024-01-14 17:58 | XRAY Report ---
PROCEDURE: No-Charge 1V Abdomen INDICATIONS: NG tube placement TECHNIQUE: 1 view of the abdomen were acquired. COMPARISON: 01/09/[address] dated 01/13/2024 FINDINGS: Surgical changes and devices: Nasogastric tube appears to be in place. Distal tip extends below the level of the diaphragm. Distal side-port not well visualized but is felt to be at or slightly proxima l to the gastroesophageal junction. Bowel: Redemonstration of extensive dilated loops of air-filled colon and possibly small bowel. Soft tissues: No masses; visualized solid organ contours appear normal in size. No suspicious abdom inal calcifications. Bones: No suspicious bony abnormalities. IMPRESSION: Nasogastric tube in place with distal tip below the level of the diaphragm. However, distal side-port not well visualized but is thought to be at or slightly proximal to the gastroesophageal junction. R ecommend advancing a short distance to ensure distal side-port is also below the level of the diaphra gm. Redemonstration of extensive air-filled loops of bowel in the imaged abdomen. Reviewed by: Angel Guillory MD on 01/14/2024 4:56 PM LUZ Approved by: Angel Guillory MD on 01/14/2024 4:56 PM LUZ Station ID: [id number]
[2024-01-14] MEDS ORDERED: POTASSIUM CHLOR 10 MEQ/100 ML 10 MEQ/100 ML BAG IV ONE ×2 (19:30→20:29)
[2024-01-15 07:03] LABS: CALCIUM 9.1 mg/dL (8.5-10.3); CREATININE 0.7 mg/dL (0.6-1.3); MAGNESIUM 1.4 mg/dL (1.7-2.3); POTASSIUM 2.7 mmol/L (3.5-4.5)
--- NOTE | 2024-01-15 07:42 | ED Physician Documentation ---
ED Addendum - Addendum Addendum: 01/15/24 Patient signed out to me at shift change. Patient is awaiting transfer to tertiary care facility for treatment of a sigmoid volvulus. Repeat chemistry obtained this morning shows potassium of 2.7 and magnesium of 1.4. IV replacements ordered. NG in place with 200 mL of dark brown liquid output. Abdomen remains distended and quite tender. 01/15/24 09:16 Per [facility], Roberto is requesting that we transfer the patient as soon as we can as they are wanting to take him into surgery as soon as possible. Therefore we will transport patient by air as a ground transport would be excessively long And patient is at high risk for deterioration. Departure - Departure Disposition: 02 Transfer Acute Care Hosp Clinical Impression: Volvulus of descending colon, Colonic obstruction, Hypokalemia Condition: Serious Forms: PCP List Discharge Date/Time: 01/15/24 10:23
[2024-01-15] MEDS: MAGNESIUM SULFATE 2 GRAM 2 GM/50 ML BAG IV ONE (07:43)
[2024-01-15] MEDS: POTASSIUM CHLOR 10 MEQ/100 ML 10 MEQ/100 ML BAG IV SCH (07:47)
[2024-01-15 09:04] VITALS: BP 142/82; O2SAT 96
== END 2024-01-15 10:23 | disposition short-term general hospital (02) ==
LOC: EDUNIT# → ED 18:35
DX: K56.2 Volvulus (principal); K56.609 Unspecified intestinal obstruction, unspecified as to partial versus complete obstruction; E87.6 Hypokalemia; F03.C0 Unspecified dementia, severe, without behavioral disturbance, psychotic disturbance, mood disturbance, and anxiety; I10 Essential (primary) hypertension; E78.00 Pure hypercholesterolemia, unspecified; E11.9 Type 2 diabetes mellitus without complications; Z66 Do not resuscitate; Z79.84 Long term (current) use of oral hypoglycemic drugs; Z79.899 Other long term (current) drug therapy; Z79.82 Long term (current) use of aspirin; Z79.01 Long term (current) use of anticoagulants; Z79.4 Long term (current) use of insulin
CPT/HCPCS: 36415; 74018; 74177; 80048; 80053; 80185; 83605; 83690; 83735; 85025; 85610; 93005; 96365; 96366; 96367; 96368; 96375; 96376; 99285; A9270; J1170; J7040; J7120; Q9967

== ENCOUNTER 2024-01-29 16:48 | Outpatient (CLI) | payer MEDICARE, OTHER | END 2024-01-29 23:59 | disposition critical access hospital (66) | LOC: EMS 16:48 | DX: R56.9 Unspecified convulsions (principal) | CPT/HCPCS: A0425; A0429 ==

== ENCOUNTER 2024-01-29 17:07 | Emergency (ER) | payer MEDICARE, OTHER ==
--- NOTE | 2024-01-29 17:33 | ED Physician Documentation ---
PD HPI SEIZURE - Stated complaint Stated Complaint: SEIZURES - Chief complaint Chief Complaint: Neuro - History obtained from History obtained from: Patient - History of Present Illness Timing - onset: Today Witnessed: Witnessed Number of seizures: Multiple (2 of them today), Lasted minutes (1-2 each), Recovered between seizure Description of seizure activity: Generalized Injury during seizure: None Associated symptoms: No: Headache, Chest pain, Nausea / vomiting History of seizures: Known seizure disorder Contributing factors: Other (he had sigmoid volvulus and was in ER for 1-2 days [facility], with surgery and colostomy. Was at [facility] few days. Has been back at eating/diet. Good output from ostomy. Noted to have several seizures in past couple of days. Last prior szs about 1 year ago.) Similar symptoms before: Diagnosis (seizure disorder) Recently seen: Surgery Review of Systems Constitutional: denies: Fever Cardiac: denies: Chest pain / pressure Respiratory: denies: Dyspnea, Cough GI: denies: Bloody / black stool PD PAST MEDICAL HISTORY - Past Medical History Cardiovascular: Hypertension, High cholesterol, Coronary artery disease Respiratory: None Neuro: Seizure disorder, Other Endocrine/Autoimmune: Type 2 diabetes GI: Colon polyps : Benign prostate hypertrophy, Indwelling catheter HEENT: None Psych: None Musculoskeletal: None Derm: None - Past Surgical History Past Surgical History: Yes General: Colonoscopy Neuro: Craniotomy - Present Medications Home Medications: Ambulatory Orders Medication Instructions Recorded Confirmed Metformin HCl [Fortamet] 1,000 mg PO BIDWM #30 11/09/17 01/14/24 Acetaminophen [Tylenol] 650 mg PO Q4HR PRN #30 tablet 12/04/21 01/14/24 Aspirin EC [Ecotrin] 81 mg PO 1200 #30 tablet 12/04/21 01/14/24 Finasteride [Proscar] 5 mg PO 1200 #30 tablet 12/04/21 01/14/24 Phenytoin [Dilantin] 400 mg PO QPM #30 tab 12/04/21 01/14/24 Tamsulosin [Flomax] 0.4 mg PO DAILY #30 cap 12/04/21 01/14/24 Topiramate 50 mg PO BID #30 tab 12/04/21 01/14/24 Zinc Oxide 20% Oint [Zinc Oxide] 1 applic TOP PRN PRN 12/04/21 01/14/24 lamoTRIgine [LaMICtal] 25 mg PO BID #60 tablet 12/04/21 01/14/24 lamoTRIgine [LaMICtal] 200 mg PO BID #120 tablet 12/04/21 01/14/24 levETIRAcetam [Keppra] 1,000 mg PO BID #240 tablet 12/04/21 01/14/24 Bisacodyl Supp [Dulcolax Supp] 1 supp UT PRN PRN 01/14/24 01/14/24 LORazepam [Ativan] 1 tab PO PRN PRN 01/14/24 01/14/24 Lovastatin 1 tab PO DAILY 01/14/24 01/14/24 Senna [Senokot] 1 tab PO DAILY 01/14/24 01/14/24 oxyBUTYnin chloride [Oxybutynin 2 tab PO DAILY 01/14/24 01/14/24 Chloride] polyethylene glycoL 3350 [Miralax] 1 applic PO PRN PRN 01/14/24 01/14/24 - Allergies Allergies/Adverse Reactions: Allergies Allergy/AdvReac Type Severity Reaction Status Date / Time No Known Drug Allergies Allergy Verified 01/29/24 17:18 - Social History Does the pt smoke?: No Smoking Status: Never smoker Does the pt drink ETOH?: Yes Does the pt have substance abuse?: No - Immunizations Immunizations are current?: Yes - POLST Patient has POLST: Yes POLST Status: Limited Interventions PD ED PE NORMAL - Vitals Vital signs reviewed: Yes - General General: Alert and oriented X 3, No acute distress, Well developed/nourished - HEENT HEENT: Atraumatic, Pharynx benign - Neck Neck: Supple, no meningeal sign, No adenopathy - Cardiac Cardiac: RRR, No murmur - Respiratory Respiratory: Clear bilaterally - Abdomen Abdomen: Normal bowel sounds, Soft, Non distended, Other (output from ostomy appears normal. No redness nor bleeding. Surgical incision daron in place. No signs of infection of skin. ) - Derm Derm: Normal color, Warm and dry - Extremities Extremities: No edema, No calf tenderness / cord - Neuro Neuro: Alert and oriented X 3 (he is conversant. Simpler sentences somewhat c/w history of brain tumor and surgery in past. ), No motor deficit, Normal speech Eye Opening: Spontaneous Motor: Obeys Commands Verbal: Oriented GCS Score: 15 Results - Vitals Vitals: Vital Signs - 24 hr 01/29/24 01/29/24 01/29/24 17:10 17:17 17:52 Temperature 36.4 C L 36.4 C L Heart Rate 88 88 93 Respiratory 17 13 28 H Rate Blood Pressure 112/55 L 112/55 L 95/55 L O2 Saturation 99 97 99 01/29/24 01/29/24 01/29/24 18:30 20:00 22:00 Temperature Heart Rate 80 67 76 Respiratory 20 21 24 Rate Blood Pressure 105/76 99/57 L 95/55 L O2 Saturation 98 95 96 Oxygen O2 Source [With Activity] Room air O2 Source Room air - Labs Labs: Laboratory Tests 01/29/24 01/29/24 17:40 17:40 WBC 9.2 RBC 4.58 L Hgb 13.2 L Hct 43.0 MCV 93.9 MCH 28.8 MCHC 30.7 L RDW 15.1 H Plt Count 588 H MPV 9.6 Neut # (Auto) 6.1 Lymph # (Auto) 1.4 L [place] # (Auto) 0.8 Eos # (Auto) 0.6 Baso # (Auto) 0.1 Absolute Nucleated RBC 0.00 Nucleated RBC % 0.0 Sodium 132 L Potassium 4.5 Chloride 99 L Carbon Dioxide 27 Anion Gap 6.0 BUN 14 Creatinine 0.8 Estimated GFR (MDRD) 94 Glucose 135 H Calcium 9.4 Phosphorus 3.0 Magnesium 1.4 L Total Bilirubin 0.2 AST 25 ALT 32 Alkaline Phosphatase 78 Total Protein 7.2 Albumin 3.3 Globulin 3.9 Albumin/Globulin Ratio 0.8 L Lipase 96 H Vitamin B12 336 Phenytoin 4.2 PD Medical Decision Making - ED course Complexity details: reviewed results (Dilantin level was low at 4.2 here, and given IV dose extra. Presume Keppra level also low but is send out lab test. Given good safety propfile of Keppra, I gave an extra 1000 mg dose IV. Had brief seizure in ED before these meds and given Ativan 1 mg IV.), re-evaluated patient (Pt doing well interacting and talking afterseizure and brief recovery. Plan is to watch for 2-3 hours after given the addition IV doses to be more therapuetic levels, and if no further ones, to return to [facility] and continue usual doses. ), considered differential (history of seeizures but not for about a year. 2 seizures today. Will check labs to see levels and also lytes/CBC. Does not have fevers. surgical site appears well healing. Presume medical officer psychiatry was off kilter during past couple weeks. Likely low levels. ), d/w patient Reviewed Lab Results: dilantin 4.2 and was 12 on the 10th when first in ER for the abd pain/volvulus. Presume missed doses during the subsequent 2 weeks of surgery and in hospital. Departure - Departure Disposition: 01 Home, Self Care Clinical Impression: Seizure, Seizure disorder, Subtherapeutic serum dilantin level Condition: Good Record reviewed to determine appropriate education?: Yes Instructions: ED Seizure Recurrent Comments: You were given doses of Keppra as well as Dilantin in the emergency department tonight. Your Dilantin level was low, but the Dilantin given in the emergency department should increase your Dilantin level significantly. A Keppra level was sent but will take several days for the result. Continue the Keppra and Dilantin at the same doses and schedule as previously prescribed. You should contact your neurologist in the morning to arrange for next available appointment for reevaluation/follow-up.
[2024-01-29 18:03] LABS: BASOPHILS # (AUTO) 0.1 10^3/uL (0.0-0.1); BASOPHILS % (AUTO) 1.3 %; EOSINOPHILS # (AUTO) 0.6 10^3/uL (0.0-0.7); EOSINOPHILS % (AUTO) 6.8 %; HGB - HEMOGLOBIN 13.2 g/dL (14.0-18.0); LYMPHOCYTES # (AUTO) 1.4 10^3/uL (1.5-3.5); LYMPHOCYTES % (AUTO) 15.2 %; MEAN CORPUSCULAR HEMOGLOBIN 28.8 pg (27.0-31.0); MEAN CORPUSCULAR HGB CONC 30.7 g/dL (32.0-36.0); MEAN CORPUSCULAR VOLUME 93.9 fL (80.0-94.0); MEAN PLATELET VOLUME 9.6 fL (7.4-11.4); MONOCYTES # (AUTO) 0.8 10^3/uL (0.0-1.0); MONOCYTES % (AUTO) 9.1 %; NEUTROPHILS # (AUTO) 6.1 10^3/uL (1.5-6.6); NEUTROPHILS % (AUTO) 66.8 %; PLT - PLATELET COUNT 588 10^3/uL (130-450); RED BLOOD COUNT 4.58 10^6/uL (4.70-6.10); RED CELL DISTRIBUTION WIDTH 15.1 % (12.0-15.0); WHITE BLOOD COUNT 9.2 x10^3/uL (4.8-10.8)
[2024-01-29 18:15] LABS: ALBUMIN 3.3 g/dL (3.2-5.5); ALBUMIN/GLOBULIN RATIO 0.8 (1.0-2.2); BILIRUBIN,TOTAL 0.2 mg/dL (0.2-1.0); CALCIUM 9.4 mg/dL (8.5-10.3); CREATININE 0.8 mg/dL (0.6-1.3); MAGNESIUM 1.4 mg/dL (1.7-2.3); PHENYTOIN (DILANTIN) 4.2 ug/mL; POTASSIUM 4.5 mmol/L (3.5-4.5); TOTAL PROTEIN 7.2 g/dL (6.4-8.9)
[2024-01-29] MEDS: SODIUM CHLORIDE 0.9% 1,000 ML IV STA (18:16)
[2024-01-29] MEDS: levETIRAcetam 500 MG/5 ML VIAL IVP STA (18:17)
[2024-01-29] MEDS: PHENYTOIN 100 MG/2 ML VIAL IVP STA (18:27)
[2024-01-29] MEDS: LORazepam 2 MG/ML VIAL IVP STA (18:46)
--- NOTE | 2024-01-29 22:21 | ED Physician Documentation ---
ED Addendum - Addendum Addendum: 01/29/24 22:18 I received signout/turnover of care on this patient from Dr. Ramsey; please see his note for complete H&P. In short, this patient presented for seizures. Patient has a seizure history for which he takes Dilantin and Keppra. Patient received a dose of Dilantin in the ED as well as Keppra, both of which were given intravenously. Dilantin level was low (4.5), Keppra level is a send- out. After sign-out at 1900, patient was observed for another 3 hours in ED and did not have any recurrence of seizure. I find him to be asleep, awakens to voice when combined with gentle tactile stimulus (shoulder tap). He is confused; in referring to previous ED [employer] charting, this is consistent with his baseline confusion attributed to dementia. At the time of signout, the plan was to observe the patient for a few hours for any recurrence of seizure and, if he does not have any recurrence of seizure, and otherwise is stable, to discharge back to [facility].
[2024-01-29 23:09] VITALS: BP 111/63; O2SAT 98
== END 2024-01-29 23:08 | disposition home or self-care (01) ==
LOC: EDUNIT# → ED 17:07
DX: G40.409 Other generalized epilepsy and epileptic syndromes, not intractable, without status epilepticus (principal); I10 Essential (primary) hypertension; E78.00 Pure hypercholesterolemia, unspecified; E11.9 Type 2 diabetes mellitus without complications; T42.0X6A Underdosing of hydantoin derivatives, initial encounter; Z91.138 Patient's unintentional underdosing of medication regimen for other reason; Z79.899 Other long term (current) drug therapy; Z79.82 Long term (current) use of aspirin
CPT/HCPCS: 36415; 80053; 80177; 80185; 82607; 83690; 83735; 84100; 84425; 85025; 96374; 96375; 99284; 99285; J2060

== ENCOUNTER 2024-01-29 23:07 | Outpatient (CLI) | payer MEDICARE, OTHER | END 2024-01-29 23:59 | LOC: EMS 23:07 | PROVIDERS: ATTEND Emergency Medicine | DX: R41.0 Disorientation, unspecified (principal); R56.9 Unspecified convulsions; F03.90 Unspecified dementia, unspecified severity, without behavioral disturbance, psychotic disturbance, mood disturbance, and anxiety | CPT/HCPCS: A0425; A0428 ==

== ENCOUNTER 2024-01-30 08:12 | Outpatient (CLI) | payer MEDICARE, OTHER ==
[2024-01-30 08:26] LABS: BILIRUBIN,URINE NEGATIVE (NEGATIVE); GLUCOSE, URINE (UA) NEGATIVE (NEGATIVE); KETONES,URINE (UA) NEGATIVE (NEGATIVE); LEUKOCYTE ESTERASE, URINE LARGE (NEGATIVE); NITRITE,URINE POSITIVE (NEGATIVE); OCCULT BLOOD,URINE SMALL (NEGATIVE); PH,URINE 7.5 PH (5.0-7.5); PROTEIN,URINE NEGATIVE (NEGATIVE); UROBILINOGEN,URINE 0.2 (NORMAL) E.U./dL (NORMAL)
[2024-01-30 08:36] LABS: BACTERIA,URINE Rare /HPF (None Seen); CLARITY,URINE CLOUDY (CLEAR); RBC,URINE 0-5 /HPF (0-5); SQUAMOUS EPITHELIAL CELL,UR NONE SEEN (<= Few); WBC,URINE >25 /HPF (0-3)
== END 2024-01-30 08:13 | disposition home or self-care (01) ==
LOC: LAB 08:12 → LAB.R 08:13
PROVIDERS: ATTEND Registered Nurse
DX: N39.0 Urinary tract infection, site not specified (principal)
CPT/HCPCS: 81001; 81003; 87086

== ENCOUNTER 2024-02-13 20:00 | Outpatient (CLI) | payer MEDICARE, OTHER | END 2024-02-13 20:01 | disposition home or self-care (01) | LOC: LAB.R 20:00 | PROVIDERS: ATTEND Registered Nurse | DX: F03.90 Unspecified dementia, unspecified severity, without behavioral disturbance, psychotic disturbance, mood disturbance, and anxiety (principal); R56.1 Post traumatic seizures | CPT/HCPCS: 80175; 80177; 80185; 81599 ==

== ENCOUNTER 2024-02-14 12:54 | Outpatient (CLI) | payer MEDICARE, OTHER | END 2024-02-14 12:55 | disposition home or self-care (01) | LOC: LAB.R 12:54 | PROVIDERS: ATTEND Registered Nurse | DX: G40.909 Epilepsy, unspecified, not intractable, without status epilepticus (principal) | CPT/HCPCS: 80175; 80177; 80185; 81599 ==

== ENCOUNTER 2024-02-25 08:07 | Outpatient (CLI) | payer MEDICARE, OTHER | END 2024-02-25 08:08 | disposition home or self-care (01) | LOC: LAB.R 08:07 | PROVIDERS: ATTEND Registered Nurse | DX: G40.909 Epilepsy, unspecified, not intractable, without status epilepticus (principal) | CPT/HCPCS: 80175; 80177; 80185; 81599 ==

== ENCOUNTER 2024-02-26 11:16 | Outpatient (CLI) | payer MEDICARE, OTHER | END 2024-02-26 23:59 | disposition critical access hospital (66) | LOC: EMS 11:16 | DX: R56.9 Unspecified convulsions (principal) | CPT/HCPCS: A0425; A0429 ==

== ENCOUNTER 2024-02-26 11:20 | Emergency (ER) | payer MEDICARE, OTHER ==
--- NOTE | 2024-02-26 11:29 | ED Physician Documentation ---
History of Present Illness - Stated complaint Stated Complaint: SEIZURE - History obtained from History obtained from: EMS - Additonal information Additional information: 78-year-old gentleman with history of seizure disorder and dementia presents from SNF with 2 reported seizures today. No obvious injury. He is not quite back to his baseline. Last seizure was about a month ago per EMS. All the history is from EMS due to dementia/postictal state. No reported medical noncompliance. Prehospital blood sugar was in the high 100s. PD PAST MEDICAL HISTORY - Past Medical History Cardiovascular: Hypertension, High cholesterol, Coronary artery disease Respiratory: None Neuro: Seizure disorder, Other Endocrine/Autoimmune: Type 2 diabetes GI: Colon polyps : Benign prostate hypertrophy, Indwelling catheter HEENT: None Psych: None Musculoskeletal: None Derm: None - Past Surgical History Past Surgical History: Yes General: Colonoscopy Neuro: Craniotomy - Present Medications Home Medications: Ambulatory Orders Medication Instructions Recorded Confirmed Metformin HCl [Fortamet] 1,000 mg PO BIDWM #30 11/09/17 02/26/24 Acetaminophen [Tylenol] 650 mg PO Q4HR PRN #30 tablet 12/04/21 02/26/24 Aspirin EC [Ecotrin] 81 mg PO 1200 #30 tablet 12/04/21 02/26/24 Finasteride [Proscar] 5 mg PO 1200 #30 tablet 12/04/21 02/26/24 Phenytoin [Dilantin] 400 mg PO QPM #30 tab 12/04/21 02/26/24 Tamsulosin [Flomax] 0.4 mg PO DAILY #30 cap 12/04/21 02/26/24 Topiramate 50 mg PO BID #30 tab 12/04/21 02/26/24 Zinc Oxide 20% Oint [Zinc Oxide] 1 applic TOP PRN PRN 12/04/21 02/26/24 lamoTRIgine [LaMICtal] 25 mg PO BID #60 tablet 12/04/21 02/26/24 lamoTRIgine [LaMICtal] 200 mg PO BID #120 tablet 12/04/21 02/26/24 levETIRAcetam [Keppra] 1,000 mg PO BID #240 tablet 12/04/21 02/26/24 Bisacodyl Supp [Dulcolax Supp] 1 supp [place] PRN PRN 01/14/24 02/26/24 LORazepam [Ativan] 1 tab PO PRN PRN 01/14/24 02/26/24 Lovastatin 1 tab PO DAILY 01/14/24 02/26/24 Senna [Senokot] 1 tab PO DAILY 01/14/24 02/26/24 oxyBUTYnin chloride [Oxybutynin 2 tab PO DAILY 01/14/24 02/26/24 Chloride] polyethylene glycoL 3350 [Miralax] 1 applic PO PRN PRN 01/14/24 02/26/24 - Allergies Allergies/Adverse Reactions: Allergies Allergy/AdvReac Type Severity Reaction Status Date / Time No Known Drug Allergies Allergy Verified 02/26/24 11:38 - Social History Does the pt smoke?: No Smoking Status: Never smoker Does the pt drink ETOH?: Yes Does the pt have substance abuse?: No - Immunizations Immunizations are current?: Yes - POLST Patient has POLST: Yes POLST Status: Limited Interventions PD ED PE NORMAL - Vitals Vital signs reviewed: Yes - General General: Other (He seems alert and makes eye contact. Does follow simple commands but is nonverbal.) - HEENT HEENT: Other (There is a scrape or healing abrasion on the right protestant which does not look like it is from today.) - Neck Neck: Supple, no meningeal sign, No bony TTP - Cardiac Cardiac: RRR, No murmur - Respiratory Respiratory: No respiratory distress, Clear bilaterally - Abdomen Abdomen: Non tender - Extremities Extremities: No deformity, No tenderness to palpate, Normal ROM s pain - Neuro Eye Opening: Spontaneous Motor: Obeys Commands Verbal: None GCS Score: 11 Results - Vitals Vitals: Vital Signs - 24 hr 02/26/24 02/26/24 02/26/24 11:20 13:45 14:24 Temperature 36.8 C Heart Rate 90 89 79 Respiratory 18 24 17 Rate Blood Pressure 128/75 110/69 O2 Saturation 97 98 99 Oxygen O2 Source [] Room air O2 Source Room air - Labs Labs: Laboratory Tests 02/26/24 02/26/24 12:03 12:03 WBC 9.8 RBC 4.66 L Hgb 13.3 L Hct 44.3 MCV 95.1 H MCH 28.5 MCHC 30.0 L RDW 14.6 Plt Count 342 MPV 9.2 Neut # (Auto) 8.1 H Lymph # (Auto) 0.8 L [place] # (Auto) 0.7 Eos # (Auto) 0.1 Baso # (Auto) 0.0 Absolute Nucleated RBC 0.00 Nucleated RBC % 0.0 Sodium 134 L Potassium 4.1 Chloride 100 L Carbon Dioxide 23 Anion Gap 11.0 BUN 21 H Creatinine 1.0 Estimated GFR (MDRD) 73 L Glucose 171 H Calcium 9.9 Magnesium 1.7 Total Bilirubin 0.3 AST 23 ALT 28 Alkaline Phosphatase 87 Total Protein 8.6 Albumin 4.2 Globulin 4.4 H Albumin/Globulin Ratio 1.0 Phenytoin 7.4 - Rads (name of study) Head CT showing no acute changes. He had the old left MCA infarct still seen on that. 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 He is on 3 antiepileptics. Levels of each were sent with levetiracetam and lamotrigine levels pending on discharge. Phenytoin level was subtherapeutic and given a loading dose to get back into the therapeutic range. Otherwise CBC and CMP were relatively unremarkable. Son who is supportive at the bedside. Departure - Departure Disposition: 01 Home, Self Care Clinical Impression: Grand mal seizure Condition: Stable Record reviewed to determine appropriate education?: Yes Comments: Dilantin level today was 7.4. We do wonder if his chronic dose needs to be increased especially given the recent ostomy placement. He should probably have another level soon. Levetiracetam and lamotrigine levels are pending at discharge as the years are send out labs. He did receive a oral dose of Dilantin of 400 mg to get his level back into the therapeutic range. Head CT showing no acute changes. He had the old left MCA infarct still seen on that.
[2024-02-26 12:08] LABS: BASOPHILS % (AUTO) 0.3 %; EOSINOPHILS # (AUTO) 0.1 10^3/uL (0.0-0.7); EOSINOPHILS % (AUTO) 0.7 %; HCT - HEMATOCRIT 44.3 % (42.0-52.0); HGB - HEMOGLOBIN 13.3 g/dL (14.0-18.0); LYMPHOCYTES # (AUTO) 0.8 10^3/uL (1.5-3.5); LYMPHOCYTES % (AUTO) 8.4 %; MEAN CORPUSCULAR HEMOGLOBIN 28.5 pg (27.0-31.0); MEAN CORPUSCULAR VOLUME 95.1 fL (80.0-94.0); MEAN PLATELET VOLUME 9.2 fL (7.4-11.4); MONOCYTES # (AUTO) 0.7 10^3/uL (0.0-1.0); MONOCYTES % (AUTO) 7.5 %; NEUTROPHILS # (AUTO) 8.1 10^3/uL (1.5-6.6); NEUTROPHILS % (AUTO) 82.7 %; PLT - PLATELET COUNT 342 10^3/uL (130-450); RED BLOOD COUNT 4.66 10^6/uL (4.70-6.10); RED CELL DISTRIBUTION WIDTH 14.6 % (12.0-15.0); WHITE BLOOD COUNT 9.8 x10^3/uL (4.8-10.8)
[2024-02-26 12:21] LABS: ALBUMIN 4.2 g/dL (3.2-5.5); BILIRUBIN,TOTAL 0.3 mg/dL (0.2-1.0); CALCIUM 9.9 mg/dL (8.5-10.3); MAGNESIUM 1.7 mg/dL (1.7-2.3); PHENYTOIN (DILANTIN) 7.4 ug/mL; POTASSIUM 4.1 mmol/L (3.5-4.5); TOTAL PROTEIN 8.6 g/dL (6.4-8.9)
--- NOTE | 2024-02-26 13:15 | CT Report ---
PROCEDURE: CT Brain without contrast INDICATIONS: seizure TECHNIQUE: Helical axial CT of the brain was obtained without contrast and reformatted in multiple p lanes. Radiation dose reduction was achieved using automated exposure control or adjustment of mA and /or kV according to patient size. COMPARISON: None FINDINGS: CSF spaces: Ventricles are appropriate in size and position. No hydrocephalus. Basal cisterns unre markable. Brain: Old left MCA infarct resulting volume loss and multifocal cystic encephalomalacia particularl y in the left frontal lobe and temporal lobe. Atrophy of the left cerebral peduncle reflect small lay ering degeneration. No change from the prior exam. No intracranial hemorrhage or mass effect. Dense atherosclerotic vascular calcification noted in the cavernous segments of both ICA. Old right posteri or inferior cerebellar infarct noted as well. Skull and face: Left pterional craniotomy secured by round plates Sinuses: Visualized sinuses and mastoids are clear. IMPRESSION: Old left MCA infarct with volume loss, cystic encephalomalacia and left pterional craniotomy. No galvan ge from the prior exam. Reviewed by: Medardo King MD on 02/26/2024 12:13 PM LUZ Approved by: Medardo King MD on 02/26/2024 12:13 PM LUZ Station ID: [id number]
[2024-02-26] MEDS: PHENYTOIN CHEW 50 MG TABLET PO STA (13:41)
[2024-02-26] MEDS: PHENYTOIN IV STA (13:44)
[2024-02-26] MEDS: SODIUM CHLORIDE 0.9% IV STA (13:44)
[2024-02-26 14:28] VITALS: BP 110/69; O2SAT 99
== END 2024-02-26 14:44 | disposition home or self-care (01) ==
LOC: EDUNIT# → ED 11:20
DX: G40.409 Other generalized epilepsy and epileptic syndromes, not intractable, without status epilepticus (principal); F03.90 Unspecified dementia, unspecified severity, without behavioral disturbance, psychotic disturbance, mood disturbance, and anxiety; I10 Essential (primary) hypertension; E78.00 Pure hypercholesterolemia, unspecified; E11.9 Type 2 diabetes mellitus without complications; Z79.899 Other long term (current) drug therapy; Z79.82 Long term (current) use of aspirin
CPT/HCPCS: 36415; 70450; 80053; 80175; 80177; 80185; 83735; 85025; 99283; 99284; A9270; 80156

== ENCOUNTER 2024-02-26 14:37 | Outpatient (CLI) | payer MEDICARE, OTHER | END 2024-02-26 23:59 | LOC: EMS 14:37 | PROVIDERS: ATTEND Emergency Medicine | DX: R41.0 Disorientation, unspecified (principal); G40.409 Other generalized epilepsy and epileptic syndromes, not intractable, without status epilepticus; Z74.01 Bed confinement status | CPT/HCPCS: A0425; A0428 ==

== ENCOUNTER 2024-03-02 08:00 | Outpatient (CLI) | payer MEDICARE, OTHER | END 2024-03-02 23:59 | disposition home or self-care (01) | LOC: LAB.R 08:00 | DX: G40.909 Epilepsy, unspecified, not intractable, without status epilepticus (principal) | CPT/HCPCS: 80201; 81599 ==

== ENCOUNTER 2024-03-05 08:00 | Outpatient (CLI) | payer MEDICARE, OTHER | END 2024-03-05 23:59 | disposition home or self-care (01) | LOC: LAB.R 08:00 | PROVIDERS: ATTEND Registered Nurse | DX: G40.909 Epilepsy, unspecified, not intractable, without status epilepticus (principal) | CPT/HCPCS: 80201; 81599 ==

== ENCOUNTER 2024-04-29 11:56 | Outpatient (CLI) | payer MEDICARE, OTHER | END 2024-04-29 11:57 | disposition home or self-care (01) | LOC: LAB.R 11:56 | PROVIDERS: ATTEND Family Medicine | DX: G40.909 Epilepsy, unspecified, not intractable, without status epilepticus (principal) | CPT/HCPCS: 80175; 80177; 81599 ==

== ENCOUNTER 2024-05-04 08:00 | Outpatient (CLI) | payer MEDICARE, OTHER | END 2024-05-04 23:59 | disposition home or self-care (01) | LOC: LAB.R 08:00 | PROVIDERS: ATTEND Family Medicine | DX: G40.909 Epilepsy, unspecified, not intractable, without status epilepticus (principal) | CPT/HCPCS: 80175; 80177; 80185; 81599 ==

== ENCOUNTER 2024-05-17 08:00 | Outpatient (CLI) | payer MEDICARE, OTHER | END 2024-05-17 23:59 | disposition home or self-care (01) | LOC: LAB.R 08:00 | PROVIDERS: ATTEND Family Medicine | DX: G40.909 Epilepsy, unspecified, not intractable, without status epilepticus (principal) | CPT/HCPCS: 80175; 80177; 80185; 81599 ==

== ENCOUNTER 2024-06-18 13:43 | Outpatient (CLI) | payer MEDICARE, OTHER ==
[2024-06-18 14:50] LABS: ESTIMATED AVERAGE GLUCOSE 117 mg/dL (70-100); HEMOGLOBIN A1c% 5.7 % (4.27-6.07)
== END 2024-06-18 13:44 | disposition home or self-care (01) ==
LOC: LAB.R 13:43
PROVIDERS: ATTEND Family Medicine
DX: G40.909 Epilepsy, unspecified, not intractable, without status epilepticus (principal); E11.9 Type 2 diabetes mellitus without complications
CPT/HCPCS: 80185; 83036

== ENCOUNTER 2024-06-24 08:00 | Outpatient (CLI) | payer MEDICARE, OTHER | END 2024-06-24 23:59 | disposition home or self-care (01) | LOC: LAB.R 08:00 | PROVIDERS: ATTEND Family Medicine | DX: G40.909 Epilepsy, unspecified, not intractable, without status epilepticus (principal) | CPT/HCPCS: 80185 ==

== ENCOUNTER 2024-07-01 14:38 | Outpatient (CLI) | payer MEDICARE, OTHER | END 2024-07-01 14:39 | disposition home or self-care (01) | LOC: LAB.R 14:38 | PROVIDERS: ATTEND Family Medicine | DX: G40.909 Epilepsy, unspecified, not intractable, without status epilepticus (principal) | CPT/HCPCS: 80185 ==

== ENCOUNTER 2024-07-21 08:00 | Outpatient (CLI) | payer MEDICARE, OTHER | END 2024-07-21 23:59 | disposition home or self-care (01) | LOC: LAB.R 08:00 | PROVIDERS: ATTEND Family Medicine | DX: G40.909 Epilepsy, unspecified, not intractable, without status epilepticus (principal) | CPT/HCPCS: 80175; 80177; 80185; 81599 ==

== ENCOUNTER 2024-09-21 23:20 | Inpatient (IN) ==
[2024-09-21] MEDS ORDERED: cefTRIAXone 2 GM VIAL ONE (23:43)
[2024-09-21] MEDS: IPRATROPIUM/ALBUTEROL 3 ML NEB INH STA (23:45)
[2024-09-21] MEDS: cefTRIAXone 2 GM in SODIUM CHLORIDE 0.9% MINIBAG 100 ML IV STA (23:48)
[2024-09-21] MEDS: SODIUM CHLORIDE 0.9% 1,000 ML IV STA (23:49)
[2024-09-21] MEDS: ACETAMINOPHEN 325 MG TABLET PO STA (23:56)
[2024-09-22] MEDS: ACETAMINOPHEN 1,000 MG/100 ML 1,000 MG/100 ML BAG IV ONE (00:12)
[2024-09-22 00:16] LABS: BASOPHILS # (AUTO) 0.1 10^3/uL (0.0-0.1); BASOPHILS % (AUTO) 0.4 %; EOSINOPHILS % (AUTO) 0.2 %; HCT - HEMATOCRIT 44.1 % (42.0-52.0); HGB - HEMOGLOBIN 13.5 g/dL (14.0-18.0); LYMPHOCYTES # (AUTO) 0.5 10^3/uL (1.5-3.5); LYMPHOCYTES % (AUTO) 3.8 %; MEAN CORPUSCULAR HGB CONC 30.6 g/dL (32.0-36.0); MEAN CORPUSCULAR VOLUME 91.5 fL (80.0-94.0); MEAN PLATELET VOLUME 9.3 fL (7.4-11.4); MONOCYTES # (AUTO) 1.1 10^3/uL (0.0-1.0); MONOCYTES % (AUTO) 7.8 %; NEUTROPHILS # (AUTO) 11.8 10^3/uL (1.5-6.6); NEUTROPHILS % (AUTO) 87.4 %; PLT - PLATELET COUNT 322 10^3/uL (130-450); RED BLOOD COUNT 4.82 10^6/uL (4.70-6.10); RED CELL DISTRIBUTION WIDTH 15.3 % (12.0-15.0); WHITE BLOOD COUNT 13.5 x10^3/uL (4.8-10.8)
[2024-09-22 00:30] LABS: MAGNESIUM 1.5 mg/dL (1.7-2.3)
--- NOTE | 2024-09-22 00:32 | ED Physician Documentation ---
PD HPI SEIZURE Stated complaint Stated Complaint: SZ Chief complaint Chief Complaint: Neuro History obtained from History obtained from: EMS History of Present Illness Timing - onset: Today Witnessed: Witnessed Number of seizures: Single Description of seizure activity: Generalized Injury during seizure: None Associated symptoms: Other (fever) History of seizures: Known seizure disorder and Prior TBI Contributing factors: Fever Treatment APPLICATION DEVELOPMENT DIRECTOR: Ativan (sub lingual ) Similar symptoms before: Diagnosis (seizure ) Recently seen: Not recently seen Additional information Additional information: Mehdi Salas is a 78-year-old male with a 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 He has had a seizure disorder since and he is a resident of a retirement. He has noted to be febrile today and he had a seizure and continues to be postictal on arrival to the emergency department. He is unable to provide any specific history. He does have a history of urinary tract infection and respiratory infection. He requires care at the retirement for direction and getting in and out of bed. [place] Coma Scale Assess Eye opening: To Voice Verbal response: Inappropriate Motor response: Localizes to Pain Total score: 11 Review of Systems Status of ROS: unobtainable due to mental status Meds/Allgy Home Medications Ambulatory Orders Medication Instructions Recorded Confirmed metformin 500 mg tablet,extended 1,000 mg (2 x 500 mg) PO BIDWM 11/09/17 02/26/24 release 24hr (osmotic) (Fortamet) diabetes ##30 acetaminophen 325 mg tablet 650 mg (2 x 325 mg) PO Q4HR PRN 12/04/21 02/26/24 Pain 1 to 4 #30 tabs aspirin 81 mg tablet,delayed 81 mg PO 1200 #30 tabs 12/04/21 02/26/24 release finasteride 5 mg tablet 5 mg PO 1200 #30 tabs 12/04/21 02/26/24 lamotrigine 100 mg tablet 200 mg (2 x 100 mg) PO BID #120 12/04/21 02/26/24 tabs lamotrigine 25 mg tablet 25 mg PO BID #60 tabs 12/04/21 02/26/24 levetiracetam 250 mg tablet 1,000 mg (4 x 250 mg) PO BID #240 12/04/21 02/26/24 tabs phenytoin sodium extended 100 mg 400 mg (4 x 100 mg) PO QPM #30 tabs 12/04/21 02/26/24 capsule tamsulosin 0.4 mg capsule 0.4 mg PO DAILY BPH #30 caps 12/04/21 02/26/24 topiramate 50 mg tablet 50 mg PO BID seizures #30 tabs 12/04/21 02/26/24 zinc oxide 20 % topical ointment 1 applic topical PRN PRN Skin Care 12/04/21 02/26/24 Oxybutynin Chloride 2 tab PO DAILY 01/14/24 02/26/24 bisacodyl 10 mg rectal suppository 1 supp [place] PRN PRN Constipation 01/14/24 02/26/24 lorazepam 1 mg tablet 1 tab PO PRN PRN Seizure 01/14/24 02/26/24 lovastatin 40 mg tablet 1 tab PO DAILY 01/14/24 02/26/24 polyethylene glycol 3350 17 gram 1 applic PO PRN PRN Constipation 01/14/24 02/26/24 oral powder packet sennosides 8.6 mg tablet (Senna 1 tab PO DAILY 01/14/24 02/26/24 Lax) Allergies Allergies Allergy/AdvReac Type Severity Reaction Status Date / Time No Known Drug Allergies Allergy Verified 02/26/24 11:38 [facility] Social History Social History (Updated 09/22/24 @ 05:35 by Rachel Adame RN) Smoking Status: Never smoker Second hand tobacco smoke exposure: No Do you dip or chew tobacco?: No Do you vape?: No Patient requests smoking cessation consult: No Initiate information on smoking cessation: No Living arrangement: At home and [facility] Living Condition: With family and With caregiver(s) Support Person: Yes Relationship: Guardian Level: Assisted Home Mobility Equipment: Walker and Wheelchair Do you feel safe in your home environment?: Yes Suffered physical, verbal, emotional, or financial abuse?: No History of Abuse: No ETOH Use: None Substance Use: denies use Are you sexually active?: No POLST Patient has POLST: Yes POLST Status: Limited Interventions Exam Exam 78-year-old male with a blank stare on his face does not appear to be making eye contact on arrival. He is nonverbal and is warm to the touch. Blood pressure 143/76 O2 saturation 94% on nasal cannula pulse rate 110 temperature 36 5 these vital signs do not reflect the degree of illness the patient is exhibiting. Constitutional normal general appearance [facility] normocephalic and head/scalp atraumatic Eyes PERRL and EOMs intact bilaterally Neck/C-Spine visual inspection normal and trachea midline Chest inspection of chest normal Respiratory Breath sounds are with rhonchi in the left base and in the right middle lung field. Cardiovascular heart rate abnormal (tachycardic) Gastrointestinal abdomen normal to inspection and abdomen soft to palpation Genitourinary no CVA tenderness Back/Pelvis spine normal to inspection Extremities normal to inspection Psychiatry mental status abnormal (obtunded) Results Vitals Vitals: Vital Signs - 24 hr 09/21/24 23:22 09/21/24 23:38 09/21/24 23:45 Temperature 36.5 C Temperature Source Temporal Artery Scan Pulse Rate 109 H 105 H Respiratory Rate 22 24 Blood Pressure 143/76 H O2 Saturation 94 94 O2 Source Room air Nasal cannula If not protocol: Oxygen Flow, liters/minute 4 4 Pain Intensity 4 09/21/24 23:56 09/22/24 01:41 09/22/24 03:42 Temperature 36.9 C Temperature Source Temporal Artery Scan Pulse Rate 84 78 Respiratory Rate 22 23 Blood Pressure 103/58 L 110/62 O2 Saturation 96 99 O2 Source Nasal cannula Room air If not protocol: Oxygen Flow, liters/minute 3 Pain Intensity 4 0 0 Oxygen O2 Source [With Activity] Room air O2 Source Room air EKG (time done) 0228: EKG releavant findings:: EKG personally interpreted by author of this note. Relevant findings are: Rate: Rate (enter#) (81) Rhythm: NSR [place]: LAD QRS: Low voltage Ischemia: Normal ST segments and T wave inversion (borderline inferior leads) Compare to prior EKG: Changed from prior EKG (SPT 01-13-2024 the repolarization abnormalities have resolved) Computer interpretation: Agree with computer Labs Labs: Laboratory Tests 09/21/24 09/22/24 00:08 01:10 WBC 13.5 H RBC 4.82 Hgb 13.5 L Hct 44.1 MCV 91.5 MCH 28.0 MCHC 30.6 L RDW 15.3 H Plt Count 322 MPV 9.3 Neut # (Auto) 11.8 H Lymph # (Auto) 0.5 L [place] # (Auto) 1.1 H Eos # (Auto) 0.0 Baso # (Auto) 0.1 Absolute Nucleated RBC 0.00 Nucleated RBC % 0.0 Sodium 136 Potassium 3.7 Chloride 102 Carbon Dioxide 22 Anion Gap 12.0 BUN 20 Creatinine 1.5 H Estimated GFR (MDRD) 46 L Glucose 199 H Lactic Acid 4.9 H* Calcium 9.2 Magnesium 1.5 L Total Bilirubin 0.2 AST 16 ALT 20 Alkaline Phosphatase 94 Total Protein 8.3 Albumin 3.9 Globulin 4.4 H Albumin/Globulin Ratio 0.9 L Lipase 49 Urine Color YELLOW Urine Clarity CLEAR Urine pH 7.0 Ur Specific [place] 1.020 Urine Protein TRACE Urine Glucose (UA) NEGATIVE Urine Ketones NEGATIVE Urine Occult Blood TRACE-INTA Urine Nitrite NEGATIVE Urine Bilirubin NEGATIVE Urine Urobilinogen 0.2 (NORMAL) Ur Leukocyte Esterase SMALL H Urine RBC 6-10 H Urine WBC >25 H Ur Squamous Epith Cells FEW Squamous Urine Bacteria Moderate H Ur Microscopic Review INDICATED Urine Culture Comments INDICATED Rads (name of study) chest: Relevant Findings:: Prelim report reviewed, EMP independent interpretation of test (On my interpretation the film appears the patient is dry and there is evidence of congestion and I suspect this congestion would blossom into infiltrate on the chest x-ray with fluid replacement.) and See rad report Interpretation: Impression: Cardiomegaly and mild congestion. No definite focal infiltrate. No pleural effusion or pneumothorax. Procedures IVC sono (time) 2330: Bedside IVC sono: IVC measures (cm) (unable to visulize vessle ) PD Medical Decision Making ED course Complexity details: reviewed old records, reviewed results, re-evaluated patient and considered differential Reviewed Lab Results: We reviewed a complete blood count showing an elevated white blood cell count of 13.5 hemoglobin was mildly low at 13.5 hematocrit normal at 44.1 platelets normal at 322,000 the differential shows a left shift. My interpretation of these laboratory results are consistent with the patient's febrile illness and elevation of white blood cell count secondary to infection.Chemistry showed normal electrolytes creatinine is elevated at 1.5 the patient's usual is 1. Glucose is elevated at 199 lactate elevated at 4.9 magnesium low at 1.5 liver functions I interpret these laboratory results to indicate the requirement for fluid replacement secondary to diabetes and fever as well as a need for magnesium replacement. The patient did have a seizure and elevation of lactate would be expected. The patient also has fever and lactate can be elevated secondary to sepsis. A urinalysis is positive for leukocyte Estrace and greater than 25 white blood cells per high-powered field moderate bacteria and the specimen did make the grade for culture. My interpretation of this is the patient likely has urinary tract infection and this also can be a source of sepsis and fever. ED course: Mehdi Salas is a 78-year-old male with a known seizure disorder secondary to a brain tumor treated 10 years ago. Today he has had a seizure and a prolonged postictal period and is noted to be febrile. He has not been able to provide any specific history himself and remained postictal in the emergency department for several hours. He has an elevated white blood cell count of fever evidence of infection in the urine a cough and rhonchi on examination all consistent with the possibility of sepsis. He has previously had urinary tract infection with Pseudomonas and Enterococcus. Today he is treated with intravenous saline and Rocephin and he will require admission to the hospital for further treatment. Discharge Plan Discharge Patient Disposition: [facility] DC/Xfer Condition: Serious Clinical Impression: Seizure Urinary tract infection Qualifiers: Urinary tract infection type: acute cystitis Hematuria presence: with hematuria Qualified Code(s): N30.01 - Acute cystitis with hematuria Sepsis Qualifiers: Sepsis type: sepsis due to unspecified organism Sepsis acute organ dysfunction status: with acute organ dysfunction Severe sepsis acute organ dysfunction type: acute renal failure Acute renal failure type: unspecified Severe sepsis shock status: without septic shock Qualified Code(s): A41.9 - Sepsis, unspecified organism Interventions: ED Admission Assessment Last Done: 09/22/24 04:32
[2024-09-22 00:36] LABS: ALBUMIN 3.9 g/dL (3.2-5.5); ALBUMIN/GLOBULIN RATIO 0.9 (1.0-2.2); BILIRUBIN,TOTAL 0.2 mg/dL (0.2-1.0); CALCIUM 9.2 mg/dL (8.5-10.3); CREATININE 1.5 mg/dL (0.6-1.3); POTASSIUM 3.7 mmol/L (3.5-4.5); TOTAL PROTEIN 8.3 g/dL (6.4-8.9)
--- NOTE | 2024-09-22 00:51 | XRAY Report ---
PROCEDURE: XR Chest 1V INDICATIONS: chest pain TECHNIQUE: One view of the chest was acquired. COMPARISON: 01/09/2024. FINDINGS: Surgical changes and devices: None. Lungs and pleura: No pleural effusions or pneumothorax. Mild pulmonary vascular congestion is seen. No definite focal infiltrate. Mediastinum: Mediastinal contours appear normal. Heart size is enlarged. Bones and chest wall: No suspicious bony lesions. Overlying soft tissues appear unremarkable. IMPRESSION: Cardiomegaly and mild congestion. No definite focal infiltrate. No pleural effusion or pneumothorax. Reviewed by: Giovanni Granda MD on 09/22/2024 12:50 AM PST Approved by: Giovanni Granda MD on 09/22/2024 12:50 AM PST Station ID: [id number]
--- NOTE | 2024-09-22 00:53 | CT Report ---
PROCEDURE: CT Head WO INDICATIONS: seizure with prolonged post ictal TECHNIQUE: Noncontrast 4.5 mm thick angled axial sections acquired from the foramen magnum to the vertex. For r adiation dose reduction, the following was used: automated exposure control, adjustment of mA and/or kV according to patient size. COMPARISON: 02/26/2024 FINDINGS: Image quality: Excellent. CSF spaces: Basal cisterns are patent. No extra-axial fluid collections. The ventricles are symmet selina in size and shape. Brain: No intracranial bleeds or masses. Old left MCA infarction is again seen with encephalomalaci a. There is cerebral volume loss for age, with resultant ventricular and sulcal prominence. There ar e periventricular and deep white matter chronic small vessel ischemic changes. There is intracranial internal carotid artery atherosclerosis. Skull and face: Postsurgical changes are noted from prior left temporoparietal craniotomy. Calvarium and visualized facial bones appear intact, without suspicious lesions. Sinuses: Visualized sinuses and mastoids are clear. IMPRESSION: No acute intracranial pathology. No significant changes from previous study. Reviewed by: Giovanni Granda MD on 09/22/2024 12:51 AM PST Approved by: Giovanni Granda MD on 09/22/2024 12:51 AM PST Station ID: [id number]
[2024-09-22] MEDS: SODIUM CHLORIDE 0.9% 1,000 ML IV STA (01:16)
[2024-09-22 01:27] LABS: BILIRUBIN,URINE NEGATIVE (NEGATIVE); GLUCOSE, URINE (UA) NEGATIVE (NEGATIVE); KETONES,URINE (UA) NEGATIVE (NEGATIVE); LEUKOCYTE ESTERASE, URINE SMALL (NEGATIVE); NITRITE,URINE NEGATIVE (NEGATIVE); OCCULT BLOOD,URINE TRACE-INTA (NEGATIVE); PROTEIN,URINE TRACE mg/dL (NEGATIVE); UROBILINOGEN,URINE 0.2 (NORMAL) E.U./dL (NORMAL)
[2024-09-22 01:32] LABS: CLARITY,URINE CLEAR (CLEAR)
[2024-09-22 01:42] LABS: WBC,URINE >25 /HPF (0-3)
[2024-09-22 01:43] LABS: BACTERIA,URINE Moderate /HPF (None Seen); SQUAMOUS EPITHELIAL CELL,UR FEW Squamous (<= Few)
[2024-09-22] MEDS: MAGNESIUM SULFATE 2 GRAM 2 GM/50 ML BAG IV ONE (02:37)
--- NOTE | 2024-09-22 03:20 | HISTORY & PHYSICAL EXAMINATION ---
Chief Complaint Chief Complaint Chief Complaint: Seizure History of Present Illness Admitted From Admitted From:: ER History Obtained From Records Reviewed: Yes History obtained from: Staff, chart Exam Limitations: Virtual exam, pt condition History of Present Illness HPI Comment/Other: H&P was conducted via video remotely, using [employer] Cart. Patient is in [place]. Physician is in [place]. RN is at bedside. Unable to obtain history from pt d/t pt's clinical condition. History obtained from staff, chart. 78 yo M with PMH of Seizure D/o s/p Glioblastoma Multiforme resection 10 years previously, TBI, DM type 2, CAD, HTN, HLD, BPH presented from his [place] s/p Seizure today. [facility] staff had reported: +Fevers x 2 days, +cough. Today, pt had a prolonged sz; EMS was called. Pt has had a prolonged post-ictal period. Pt is resting. Per staff, he has been making eye contact, but has not spoken. No further history available. In the ER, SpO2 93% RA, HR 105, WBC 13.5, Mag 1.5, LA 4.9, Glc 199, CR 1.5, U/A: +LE, WBC, bacteria CXR: CMG, mild congestion; +patchy infiltrates per ER Physician EKG: NSR at 81 bpm, no STTw changes Pt was given Rocephin, Mag SO4 2 gm IV, IVF, Duonebs in the ER. Review of Systems Status of ROS: unobtainable due to medical condition PFSH Social History Social History Smoking Status: Never smoker Do you dip or chew tobacco?: No Patient requests smoking cessation consult: No Initiate information on smoking cessation: No Living arrangement: At home Living Condition: With family Relationship: DPOA Home Mobility Equipment: Cane and Walker Do you feel safe in your home environment?: Yes Suffered physical, verbal, emotional, or financial abuse?: No History of Abuse: No ETOH Use: POLST Patient has POLST: Yes POLST Status: Limited Interventions Meds/Allgy Home Medications Ambulatory Orders Medication Instructions Recorded Confirmed metformin 500 mg tablet,extended 1,000 mg (2 x 500 mg) PO BIDWM 11/09/17 02/26/24 release 24hr (osmotic) (Fortamet) diabetes ##30 acetaminophen 325 mg tablet 650 mg (2 x 325 mg) PO Q4HR PRN 12/04/21 02/26/24 Pain 1 to 4 #30 tabs aspirin 81 mg tablet,delayed 81 mg PO 1200 #30 tabs 12/04/21 02/26/24 release finasteride 5 mg tablet 5 mg PO 1200 #30 tabs 12/04/21 02/26/24 lamotrigine 100 mg tablet 200 mg (2 x 100 mg) PO BID #120 12/04/21 02/26/24 tabs lamotrigine 25 mg tablet 25 mg PO BID #60 tabs 12/04/21 02/26/24 levetiracetam 250 mg tablet 1,000 mg (4 x 250 mg) PO BID #240 12/04/21 02/26/24 tabs phenytoin sodium extended 100 mg 400 mg (4 x 100 mg) PO QPM #30 tabs 12/04/21 02/26/24 capsule tamsulosin 0.4 mg capsule 0.4 mg PO DAILY BPH #30 caps 12/04/21 02/26/24 topiramate 50 mg tablet 50 mg PO BID seizures #30 tabs 12/04/21 02/26/24 zinc oxide 20 % topical ointment 1 applic topical PRN PRN Skin Care 12/04/21 02/26/24 Oxybutynin Chloride 2 tab PO DAILY 01/14/24 02/26/24 bisacodyl 10 mg rectal suppository 1 supp [place] PRN PRN Constipation 01/14/24 02/26/24 lorazepam 1 mg tablet 1 tab PO PRN PRN Seizure 01/14/24 02/26/24 lovastatin 40 mg tablet 1 tab PO DAILY 01/14/24 02/26/24 polyethylene glycol 3350 17 gram 1 applic PO PRN PRN Constipation 01/14/24 02/26/24 oral powder packet sennosides 8.6 mg tablet (Senna 1 tab PO DAILY 01/14/24 02/26/24 Lax) Allergies Allergies Allergy/AdvReac Type Severity Reaction Status Date / Time No Known Drug Allergies Allergy Verified 02/26/24 11:38 Exam Constitutional normal general appearance and no apparent distress HENMT normocephalic and head/scalp atraumatic Eyes PERRL and no scleral icterus Respiratory cart stethoscope not working; per ER Provider: +rhonchi B/L Cardiovascular cart stethoscope not working; per ER Provider: RRR, no murmurs Gastrointestinal per ER Provider: non-distended, NT, Soft Extremities per ER Provider: moves extrem, no edema Neurology Awake; per ER staff: confused, +eye contact, not speaking or following commands Conclusion/Plan Problem List (1) Seizure: Plan: Seizure with prolonged post-ictal state Seizure D/o s/p Glioblastoma Multiforme resection 10 years previously -continue home medications: Lamotrigine, Keppra, Phenytoin, Topamax -neurochecks Aspiration Pneumonia, suspected Cough Rhonchi Fever Leukocytosis Elevated Lactic Acid Tachycardia -SpO2 93% RA, HR 105, WBC 13.5, LA 4.9 -CXR: CMG, mild congestion; +patchy infiltrates per ER Physician -Pt was given Rocephin, Mag SO4 2 gm IV, IVF, Duonebs in the ER. -O2 support PRN -Duonebs PRN -Unasyn 3 gm IV qhrs UTI -U/A: +LE, WBC, bacteria -pt on Unasyn -F/U UC Renal Insufficiency -CR 1.5 -most likely pre-renal -continue IVF Low Magnesium -Mag 1.5 -supplement PRN -Pt was given Mag SO4 2 gm IV in the ER. DM type 2 -Glc 199 -accuchecks, SS Insulin, Hypoglycemic protocol -hold home medications: Metformin -check Hgba1c CAD HTN HLD -continue home medications: ASA BPH -continue home medications: Finasteride, Flomax VTE Prophylaxis: Hep SQ Code Status: pt has a POLST form with DNR; pt unable to discuss ~Radha Haddad MD Hospitalist Lab Results 09/21/24 00:08 09/21/24 00:08
[2024-09-22] MEDS ORDERED: ZINC OXIDE 20% OINT 30 GM TUBE TOP PRN (03:48)
[2024-09-22] MEDS ORDERED: ACETAMINOPHEN 325 MG TABLET PO PRN (03:48)
[2024-09-22] MEDS ORDERED: polyethylene glycoL 3350 17 GM PACKET PO PRN (03:48)
[2024-09-22] MEDS ORDERED: ONDANSETRON ODT 4 MG TABLET TL PRN (03:49)
[2024-09-22] MEDS ORDERED: ONDANSETRON 4 MG/2 ML VIAL IVP PRN (03:49)
[2024-09-22] MEDS ORDERED: SODIUM CHLORIDE FLUSH 0.9% 10 ML SYRINGE IVP PRN (03:49)
[2024-09-22] MEDS ORDERED: IPRATROPIUM/ALBUTEROL 3 ML NEB INH PRN (04:17)
[2024-09-22] MEDS: LACTATED RINGERS 1,000 ML IV SCH (04:55)
[2024-09-22] MEDS: AMPICILLIN/SULBACTAM 3 GM in SODIUM CHLORIDE 0.9% MINIBAG 100 ML IV SCH (04:56)
[2024-09-22 05:47] LABS: BASOPHILS # (AUTO) 0.1 10^3/uL (0.0-0.1); BASOPHILS % (AUTO) 0.6 %; EOSINOPHILS % (AUTO) 0.4 %; HCT - HEMATOCRIT 43.3 % (42.0-52.0); HGB - HEMOGLOBIN 13.3 g/dL (14.0-18.0); LYMPHOCYTES # (AUTO) 1.6 10^3/uL (1.5-3.5); LYMPHOCYTES % (AUTO) 15.1 %; MEAN CORPUSCULAR HEMOGLOBIN 28.1 pg (27.0-31.0); MEAN CORPUSCULAR HGB CONC 30.7 g/dL (32.0-36.0); MEAN CORPUSCULAR VOLUME 91.5 fL (80.0-94.0); MEAN PLATELET VOLUME 9.8 fL (7.4-11.4); MONOCYTES # (AUTO) 0.9 10^3/uL (0.0-1.0); MONOCYTES % (AUTO) 8.5 %; NEUTROPHILS # (AUTO) 7.7 10^3/uL (1.5-6.6); PLT - PLATELET COUNT 254 10^3/uL (130-450); RED BLOOD COUNT 4.73 10^6/uL (4.70-6.10); RED CELL DISTRIBUTION WIDTH 15.3 % (12.0-15.0); WHITE BLOOD COUNT 10.3 x10^3/uL (4.8-10.8)
[2024-09-22 06:00] LABS: CALCIUM 8.9 mg/dL (8.5-10.3); CREATININE 1.3 mg/dL (0.6-1.3); POTASSIUM 4.2 mmol/L (3.5-4.5)
[2024-09-22] MEDS: INSULIN LISPRO 300 UNIT/3 ML PEN SUBQ SCH (07:42)
[2024-09-22 07:44] VITALS: O2SAT 98
--- NOTE | 2024-09-22 07:57 | PROVIDER PROGRESS NOTE ---
Subjective Prog Note Date Prog Note Date: 09/22/24 Prog Note Time: 07:56 Subjective Pt reports feeling: Improved Subjective: He is awake and eating breakfast. He is not able to respond appropriately verbally to me, but he is able to respond with facial expressions. Current Medications Current Medications Current Medications: Current Medications Generic Name Dose Route Start Last Admin Trade Name Freq PRN Reason Stop Dose Admin Acetaminophen 650 mg 09/22/24 03:48 Acetaminophen 325 Mg Tablet PO Q4HR PRN Pain 1 to 4 Albuterol/Ipratropium 3 ml 09/22/24 04:17 Ipratropium/Albuterol 3 Ml Neb INH Q4HR PRN Wheezing Aspirin 81 mg 09/22/24 12:00 Aspirin Ec 81 Mg Tablet PO 1200 [facility] Atorvastatin Calcium 10 mg 09/22/24 21:00 Atorvastatin 10 Mg Tablet PO QPM JAKE Finasteride 5 mg 09/22/24 12:00 Finasteride 5 Mg Tablet PO 1200 [facility] Heparin Sodium (Porcine) 5,000 unit 09/22/24 09:00 Heparin 5,000 Unit/Ml Vial SUBQ BID JAKE Lactated Ringer's 1,000 mls @ 75 mls/hr 09/22/24 04:00 09/22/24 04:55 Lr IV 75 mls/hr .[id number] [facility] Administration Ampicillin Sodium/Sulbactam 100 mls @ 200 mls/hr 09/22/24 05:00 09/22/24 05:26 Sodium 3 gm/ Sodium Chloride IV Infused Q6H [facility] Infusion Insulin Human Lispro 1 - 5 unit 09/22/24 08:00 09/22/24 07:42 Insulin Lispro 300 Unit/3 Ml Pen SUBQ Not Given 0800,1200,1700,2100 [facility] Protocol Lamotrigine 125 mg 09/22/24 09:00 Lamotrigine 25 Mg Tablet PO BID [facility] Levetiracetam 1,000 mg 09/22/24 09:00 Levetiracetam 250 Mg Tablet PO BID [facility] Magnesium Oxide 400 mg 09/22/24 08:00 Magnesium Oxide 400 Mg Tablet PO DAILYWM [facility] Multi-Ingredient Ointment 1 applic 09/22/24 03:48 Zinc Oxide 20% Oint 30 Gm Tube TOP PRN PRN Skin Care Ondansetron HCl 4 mg 09/22/24 03:49 Ondansetron Odt 4 Mg Tablet TL Q6HR PRN Nausea / Vomiting Ondansetron HCl 4 mg 09/22/24 03:49 Ondansetron 4 Mg/2 Ml Vial IVP Q6HR PRN Nausea / Vomiting Polyethylene Glycol 17 gm 09/22/24 03:48 Polyethylene Glycol 3350 17 Gm Packet PO DAILY PRN CONSTIPATION Sodium Chloride 10 ml 09/22/24 03:49 Sodium Chloride Flush 0.9% 10 Ml Syringe IVP PRN PRN NEEDED PER PROVIDER ORDERS Sodium Chloride 10 ml 09/22/24 09:00 Sodium Chloride Flush 0.9% 10 Ml Syringe IVP 0100,0900,1700 JAKE Solifenacin 5 mg 09/22/24 09:00 Solifenacin Succinate 5 Mg Tablet PO DAILY JAKE Tamsulosin HCl 0.4 mg 09/22/24 09:00 Tamsulosin 0.4 Mg Capsule PO DAILY [facility] Objective Vital Signs/Intake & Output Reviewed Vital Signs: Yes Vital Signs: Vital Signs x48h Temp Pulse Pulse Resp BP BP Pulse Ox 09/22/24 07:42 36.6 C 75 16 123/68 98 09/22/24 04:51 36.6 C 78 24 128/64 97 09/22/24 03:42 36.9 C 78 23 110/62 99 09/22/24 01:41 84 22 103/58 L 96 O2 Flow Rate 09/22/24 07:42 09/22/24 04:51 09/22/24 03:42 09/22/24 01:41 3 Intake & Output: Intake & Output 09/20/24 09/21/24 09/22/24 09/23/24 05:59 05:59 05:59 05:59 Intake Total 2350 / 2350 Balance 2350 / 2350 Weight (kg) 96 kg Objective General Appearance: positive No acute distress and Alert Eyes Bilateral: positive Normal inspection ENT: positive ENT inspection nml Neck: positive Nml inspection Respiratory: positive Chest non-tender, No respiratory distress and Breath sounds nml Cardiovascular: positive Regular rate & rhythm Abdomen: positive No distention Skin: positive Color nml Extremities: positive No pedal edema Neurologic/Psychiatric: positive Other (unable to assess orientation, he is aphasic. he is moving all extremities. ) Lab Results 09/22/24 05:31 09/22/24 05:31 Other Labs: Lab Results x24hrs 09/22/24 09/22/24 09/22/24 Range/Units 07:30 05:31 05:02 WBC 10.3 (4.8-10.8) x10^3/uL RBC 4.73 (4.70-6.10) 10^6/uL Hgb 13.3 L (14.0-18.0) g/dL Hct 43.3 (42.0-52.0) % MCV 91.5 (80.0-94.0) fL MCH 28.1 (27.0-31.0) pg MCHC 30.7 L (32.0-36.0) g/dL RDW 15.3 H (12.0-15.0) % Plt Count 254 (130-450) 10^3/uL MPV 9.8 (7.4-11.4) fL Neut # (Auto) 7.7 H (1.5-6.6) 10^3/uL Lymph # (Auto) 1.6 (1.5-3.5) 10^3/uL [place] # (Auto) 0.9 (0.0-1.0) 10^3/uL Eos # (Auto) 0.0 (0.0-0.7) 10^3/uL Baso # (Auto) 0.1 (0.0-0.1) 10^3/uL Absolute Nucleated RBC 0.00 x10^3/uL Nucleated RBC % 0.0 /100WBC Sodium 136 (135-145) mmol/L Potassium 4.2 (3.5-4.5) mmol/L Chloride 107 (101-111) mmol/L Carbon Dioxide 20 L (21-32) mmol/L Anion Gap 9.0 (6-13) BUN 17 (6-20) mg/dL Creatinine 1.3 (0.6-1.3) mg/dL Estimated GFR (MDRD) 54 L (>89) Glucose 148 H (74-104) mg/dL POC Whole Bld Glucose 132 (70-100) mg/dL Lactic Acid (0.5-2.2) mmol/L Calcium 8.9 (8.5-10.3) mg/dL Magnesium 1.9 (1.7-2.3) mg/dL Total Bilirubin (0.2-1.0) mg/dL AST (10-42) IU/L ALT (10-60) IU/L Alkaline Phosphatase (42-121) IU/L Total Protein (6.4-8.9) g/dL Albumin (3.2-5.5) g/dL Globulin (2.1-4.2) g/dL Albumin/Globulin Ratio (1.0-2.2) Lipase (11-82) U/L Urine Color Urine Clarity (CLEAR) Urine pH (5.0-7.5) PH Ur Specific [place] (1.002-1.030) Urine Protein (NEGATIVE) mg/dL Urine Glucose (UA) (NEGATIVE) mg/dL Urine Ketones (NEGATIVE) mg/dL Urine Occult Blood (NEGATIVE) Urine Nitrite (NEGATIVE) Urine Bilirubin (NEGATIVE) Urine Urobilinogen (NORMAL) E.U./dL Ur Leukocyte Esterase (NEGATIVE) Urine RBC (0-5) /HPF Urine WBC (0-3) /HPF Ur Squamous Epith Cells (<= Few) Urine Bacteria (None Seen) /HPF Ur Microscopic Review Urine Culture Comments 09/22/24 09/21/24 Range/Units 01:10 00:08 WBC 13.5 H (4.8-10.8) x10^3/uL RBC 4.82 (4.70-6.10) 10^6/uL Hgb 13.5 L (14.0-18.0) g/dL Hct 44.1 (42.0-52.0) % MCV 91.5 (80.0-94.0) fL MCH 28.0 (27.0-31.0) pg MCHC 30.6 L (32.0-36.0) g/dL RDW 15.3 H (12.0-15.0) % Plt Count 322 (130-450) 10^3/uL MPV 9.3 (7.4-11.4) fL Neut # (Auto) 11.8 H (1.5-6.6) 10^3/uL Lymph # (Auto) 0.5 L (1.5-3.5) 10^3/uL [place] # (Auto) 1.1 H (0.0-1.0) 10^3/uL Eos # (Auto) 0.0 (0.0-0.7) 10^3/uL Baso # (Auto) 0.1 (0.0-0.1) 10^3/uL Absolute Nucleated RBC 0.00 x10^3/uL Nucleated RBC % 0.0 /100WBC Sodium 136 (135-145) mmol/L Potassium 3.7 (3.5-4.5) mmol/L Chloride 102 (101-111) mmol/L Carbon Dioxide 22 (21-32) mmol/L Anion Gap 12.0 (6-13) BUN 20 (6-20) mg/dL Creatinine 1.5 H (0.6-1.3) mg/dL Estimated GFR (MDRD) 46 L (>89) Glucose 199 H (74-104) mg/dL POC Whole Bld Glucose (70-100) mg/dL Lactic Acid 4.9 H* (0.5-2.2) mmol/L Calcium 9.2 (8.5-10.3) mg/dL Magnesium 1.5 L (1.7-2.3) mg/dL Total Bilirubin 0.2 (0.2-1.0) mg/dL AST 16 (10-42) IU/L ALT 20 (10-60) IU/L Alkaline Phosphatase 94 (42-121) IU/L Total Protein 8.3 (6.4-8.9) g/dL Albumin 3.9 (3.2-5.5) g/dL Globulin 4.4 H (2.1-4.2) g/dL Albumin/Globulin Ratio 0.9 L (1.0-2.2) Lipase 49 (11-82) U/L Urine Color YELLOW Urine Clarity CLEAR (CLEAR) Urine pH 7.0 (5.0-7.5) PH Ur Specific [place] 1.020 (1.002-1.030) Urine Protein TRACE (NEGATIVE) mg/dL Urine Glucose (UA) NEGATIVE (NEGATIVE) mg/dL Urine Ketones NEGATIVE (NEGATIVE) mg/dL Urine Occult Blood [place] (NEGATIVE) Urine Nitrite NEGATIVE (NEGATIVE) Urine Bilirubin NEGATIVE (NEGATIVE) Urine Urobilinogen 0.2 (NORMAL) (NORMAL) E.U./dL Ur Leukocyte Esterase SMALL H (NEGATIVE) Urine RBC 6-10 H (0-5) /HPF Urine WBC >25 H (0-3) /HPF Ur Squamous Epith Cells FEW Squamous (<= Few) Urine Bacteria Moderate H (None Seen) /HPF Ur Microscopic Review INDICATED Urine Culture Comments INDICATED Assessment/Plan Problem List (1) Seizure: (2) Pneumonia: (3) Urinary tract infection: Qualifiers: Hematuria presence: with hematuria Urinary tract infection type: acute cystitis Qualified Code(s): N30.01 - Acute cystitis with hematuria
[2024-09-22] MEDS ORDERED: INSULIN LISPRO 300 UNIT/3 ML PEN SUBQ SCH (08:00)
[2024-09-22 08:07] LABS: ESTIMATED AVERAGE GLUCOSE 134 mg/dL (70-100); HEMOGLOBIN A1c% 6.3 % (4.27-6.07)
[2024-09-22] MEDS: TAMSULOSIN 0.4 MG CAPSULE PO SCH (08:31)
[2024-09-22] MEDS: HEPARIN 5,000 UNIT/ML VIAL SUBQ SCH (08:31)
[2024-09-22] MEDS: MAGNESIUM OXIDE 400 MG TABLET PO SCH (08:31)
[2024-09-22] MEDS: levETIRAcetam 250 MG TABLET PO SCH (08:31)
[2024-09-22] MEDS: lamoTRIgine 25 MG TABLET PO SCH (08:31)
[2024-09-22] MEDS: SOLIFENACIN SUCCINATE 5 MG TABLET PO SCH (08:31)
[2024-09-22] MEDS: SODIUM CHLORIDE FLUSH 0.9% 10 ML SYRINGE IVP SCH (08:32)
[2024-09-22] MEDS ORDERED: ENOXAPARIN 40 MG/0.4 ML SYRINGE SUBQ SCH (09:00)
[2024-09-22] MEDS ORDERED: TOPIRAMATE 25 MG TABLET PO SCH ×2 (09:00→14:00)
--- NOTE | 2024-09-22 10:25 | Discharge Summary ---
"Discharge Summary Admit Date: 09/22/24 Discharge Date: 09/22/24 Discharging Provider: Lizbeth Bynum PA-C Primary Care Provider: Rene Cee Code Status: Do Not Attempt Resuscitation DIAGNOSES Discharge Diagnoses with Status of Each Condition: Seizure, resolved, postictal state has resolved. Pneumonia, present on admission. Urinary tract infection, present on admission, urine culture pending. HPI History of Present Illness: HPI Comment/Other: H&P was conducted via video remotely, using [employer] Cart. Patient is in [place]. Physician is in [place]. RN is at bedside. Unable to obtain history from pt d/t pt's clinical condition. History obtained from staff, chart. 78 yo M with PMH of Seizure D/o s/p Glioblastoma Multiforme resection 10 years previously, TBI, DM type 2, CAD, HTN, HLD, BPH presented from his [place] s/[place]ure today. [place] staff had reported: +Fevers x 2 days, +cough. Today, pt had a prolonged sz; EMS was called. Pt has had a prolonged post-ictal period. Pt is resting. Per staff, he has been making eye contact, but has not spoken. No further history available. In the ER, SpO2 93% RA, HR 105, WBC 13.5, Mag 1.5, LA 4.9, Glc 199, CR 1.5, U/A: +LE, WBC, bacteria CXR: CMG, mild congestion; +patchy infiltrates per ER Physician EKG: NSR at 81 bpm, no STTw changes Pt was given Rocephin, Mag SO4 2 gm IV, IVF, Duonebs in the ER. CONSULTS | PROCEDURES Consultations: none Procedures: CT head: No acute intracranial pathology. No significant changes from prior. Chest x-ray: Cardiomegaly and mild congestion. No focal infiltrate. No pleural effusion or pneumothorax HOSPITAL COURSE Hospital Course: 78-year-old male who is a resident of a care facility who presents to the emergency department in a postictal state after prolonged seizure. He has been having a fever and cough for several days. The time of admission he was requiring supplemental oxygen. On workup in the emergency department his white blood cell count was 13.5, he was tachycardic with heart rate of 105 his lactate was elevated at 4.9, this was repeated several hours later and had normalized. On the morning of hospital day 1 he was sitting up eating breakfast and back to his baseline neurological state. He was afebrile and not hypoxic. He will be discharged back to his care facility with a 3-day course of a this azithromycin, 5-day course of Augmentin. We will adjust antibiotic therapy as needed if his urine cultures are returned as positive. He should resume all of his home antiseizure medications ALLERGIES Allergies Allergy/AdvReac Type Severity Reaction Status Date / Time No Known Drug Allergies Allergy Verified 02/26/24 11:38 MEDICATIONS Ambulatory Orders Medication Instructions Recorded Confirmed aspirin 81 mg tablet,delayed 81 mg PO 1200 #30 tabs 12/04/21 09/22/24 release finasteride 5 mg tablet 5 mg PO 1200 #30 tabs 12/04/21 09/22/24 lamotrigine 100 mg tablet 200 mg (2 x 100 mg) PO BID #120 12/04/21 09/22/24 tabs lamotrigine 25 mg tablet 25 mg PO BID #60 tabs 12/04/21 09/22/24 tamsulosin 0.4 mg capsule 0.4 mg PO DAILY BPH #30 caps 12/04/21 09/22/24 lorazepam 1 mg tablet 1 mg PO QID PRN Seizure 01/14/24 09/22/24 lovastatin 40 mg tablet 40 mg PO QPM 01/14/24 09/22/24 polyethylene glycol 3350 17 gram 1 applic PO DAILY PRN Constipation 01/14/24 09/22/24 oral powder packet sennosides 8.6 mg tablet (Senna 17.2 mg PO DAILY PRN constipation 01/14/24 09/22/24 Lax) acetaminophen 325 mg tablet 650 mg PO QID PRN Pain 1 to 4 09/22/24 09/22/24 amoxicillin 500 mg-potassium 1 tab PO BID #10 tabs 09/22/24 clavulanate 125 mg tablet (Augmentin) azithromycin 500 mg tablet 500 mg PO DAILY 3 days #3 tabs 09/22/24 cholecalciferol (vitamin D3) 125 5,000 unit PO DAILY #30 caps 09/22/24 mcg (5,000 unit) capsule cyanocobalamin (vitamin B-12) 500 500 mcg PO DAILY #30 tabs 09/22/24 mcg tablet levetiracetam 500 mg tablet 1,000 mg PO BID 09/22/24 09/22/24 magnesium oxide 400 mg PO QPM 09/22/24 09/22/24 magnesium oxide 400 mg (241.3 mg 400 mg PO DAILYWM #30 tabs 09/22/24 magnesium) tablet metformin 500 mg tablet 1,000 mg PO BIDWM 09/22/24 09/22/24 oxybutynin chloride 10 mg 10 mg PO DAILY 09/22/24 09/22/24 tablet,extended release 24 hr phenytoin sodium extended 100 mg 500 mg PO DAILY 09/22/24 09/22/24 capsule topiramate 25 mg tablet 50 mg (2 x 25 mg) PO TID #90 tabs 09/22/24 PHYSICAL EXAM AT DISCHARGE General Appearance: positive No acute distress and Alert Eyes Bilateral: positive Normal inspection, PERRL and Conjunctivae nml ENT: positive ENT inspection nml Neck: positive Nml inspection Respiratory: positive Chest non-tender, No respiratory distress and Breath sounds nml Cardiovascular: positive Regular rate & rhythm Abdomen: positive No distention Back: positive Nml inspection Skin: positive Color nml and No rash Extremities: positive No pedal edema Neurologic/Psychiatric: positive Other (Aphasic. Intermittently is able to communicate with nurses, usually with one-word answers. His one-word answers to me are not appropriate.. His facial expressions are appropriate.) LABS 09/22/24 05:31 09/22/24 05:31 SEPSIS Current Stage of Sepsis: Ruled out FOLLOW UP Follow Up: pcp this week for urine culture results TIME SPENT Time Spent in Discharge (Minutes): 25 Discharge Plan Discharge Patient Disposition: [facility], Self Care Condition: Serious Prescriptions: New cholecalciferol (vitamin D3) 125 mcg (5,000 unit) Capsule 5,000 unit PO DAILY Qty: 30 0RF cyanocobalamin (vitamin B-12) 500 mcg Tablet 500 mcg PO DAILY Qty: 30 0RF amoxicillin-pot clavulanate [Augmentin] 500-125 mg tablet 1 tab PO BID Qty: 10 0RF azithromycin 500 mg tablet 500 mg PO DAILY 3 Days Qty: 3 0RF magnesium oxide 400 mg (241.3 mg magnesium) Tablet 400 mg PO DAILYWM Qty: 30 0RF topiramate 25 mg Tablet 50 mg PO TID Qty: 90 0RF Continued aspirin 81 MG tablet,delayed release (DR/EC) 81 mg PO 1200 Qty: 30 0RF lamotrigine 25 MG tablet 25 mg PO BID Qty: 60 0RF lamotrigine 100 MG tablet 200 mg PO BID Qty: 120 0RF finasteride 5 MG tablet 5 mg PO 1200 Qty: 30 0RF tamsulosin 0.4 MG capsule 0.4 mg PO DAILY Qty: 30 0RF sennosides [Senna Lax] 8.6 MG tablet 17.2 mg PO DAILY PRN (Reason: constipation) polyethylene glycol 3350 17 GM powder in packet 1 applic PO DAILY PRN (Reason: Constipation) lovastatin 40 MG tablet 40 mg PO QPM lorazepam 1 MG tablet 1 mg PO QID PRN (Reason: Seizure) oxybutynin chloride 10 mg tablet extended release 24hr 10 mg PO DAILY Discontinued topiramate 50 MG tablet 50 mg PO BID Qty: 30 0RF Oxybutynin Chloride 5 MG Tablet 2 tab PO DAILY No Action levetiracetam 500 mg tablet 1,000 mg PO BID Rx Instructions: TAKE 2 TABLETS (1,000 MG) BY MOUTH TWICE A DAY metformin 500 mg tablet 1,000 mg PO BIDWM Rx Instructions: TAKE TWO TABLETS BY MOUTH TWICE DAILY magnesium oxide 400 mg magnesium capsule 400 mg PO QPM acetaminophen 325 MG tablet 650 mg PO QID PRN (Reason: Pain 1 to 4) phenytoin sodium extended 100 MG capsule 500 mg PO DAILY Activity Restrictions: Activity as Tolerated Diet: Diabetic Health Concerns: Mehdi came into the hospital with a seizure. We believe that he decompensated because he got sick with pneumonia and possibly a urinary tract infection. Initially he needed oxygen but quickly was able to wean off supplemental oxygen. He received several doses of IV antibiotics and should continue antibiotics as he transitions to home. All of his antiseizure medication should remain unchanged. He should continue with his diabetes management. Print Language: Bulgarian Patient Instructions: Pneumonia Stand Alone Forms: PCP List Follow-up Care: Clarice Burton PA-C [Provider Admit Priv/Credential] -"
[2024-09-22] MEDS: CYANOCOBALAMIN 500 MCG TABLET PO SCH (10:40)
[2024-09-22] MEDS: CHOLECALCIFEROL 5,000 UNIT CAPSULE PO SCH (10:40)
--- NOTE | 2024-09-22 11:54 | PHARMACY PROGRESS NOTE ---
Best Possible Medication History Admit Date and Time: 09/22/24 0349 Home Medications Medication Instructions Recorded Confirmed Type aspirin 81 mg tablet,delayed 81 mg PO 1200 #30 tabs 12/04/21 09/22/24 Rx release finasteride 5 mg tablet 5 mg PO 1200 #30 tabs 12/04/21 09/22/24 Rx lamotrigine 100 mg tablet 200 mg (2 x 100 mg) PO BID #120 12/04/21 09/22/24 Rx tabs lamotrigine 25 mg tablet 25 mg PO BID #60 tabs 12/04/21 09/22/24 Rx tamsulosin 0.4 mg capsule 0.4 mg PO DAILY BPH #30 caps 12/04/21 09/22/24 Rx lorazepam 1 mg tablet 1 mg PO QID PRN Seizure 01/14/24 09/22/24 History lovastatin 40 mg tablet 40 mg PO QPM 01/14/24 09/22/24 History polyethylene glycol 3350 17 gram 1 applic PO DAILY PRN Constipation 01/14/24 09/22/24 History oral powder packet sennosides 8.6 mg tablet (Senna 17.2 mg PO DAILY PRN constipation 01/14/24 09/22/24 History Lax) acetaminophen 325 mg tablet 650 mg PO QID PRN Pain 1 to 4 09/22/24 09/22/24 History amoxicillin 500 mg-potassium 1 tab PO BID #10 tabs 09/22/24 Rx clavulanate 125 mg tablet (Augmentin) azithromycin 500 mg tablet 500 mg PO DAILY 3 days #3 tabs 09/22/24 Rx cholecalciferol (vitamin D3) 125 5,000 unit PO DAILY #30 caps 09/22/24 Rx mcg (5,000 unit) capsule cyanocobalamin (vitamin B-12) 500 500 mcg PO DAILY #30 tabs 09/22/24 Rx mcg tablet levetiracetam 500 mg tablet 1,000 mg PO BID 09/22/24 09/22/24 History magnesium oxide 400 mg PO QPM 09/22/24 09/22/24 History magnesium oxide 400 mg (241.3 mg 400 mg PO DAILYWM #30 tabs 09/22/24 Rx magnesium) tablet metformin 500 mg tablet 1,000 mg PO BIDWM 09/22/24 09/22/24 History oxybutynin chloride 10 mg 10 mg PO DAILY 09/22/24 09/22/24 History tablet,extended release 24 hr phenytoin sodium extended 100 mg 500 mg PO DAILY 09/22/24 09/22/24 History capsule topiramate 25 mg tablet 50 mg (2 x 25 mg) PO TID #90 tabs 09/22/24 Rx Processed by: Pharmacy Medications reviewed in ED?: No Medication History completed: Yes Secondary Source(s): Facility MAR as ONLY source [facility] Statement: As the person ultimately responsible for medication therapy, providers are able to order a medication from an existing home medication list in [facility] via the "Reconcile Routine" prior to Confirmation of that medication by help desk support specialist. Such practice is discouraged except when the physician, in their clinical judgment, deems that a medical need exists for a medication without regard to previous use.
[2024-09-22] MEDS: ASPIRIN EC 81 MG TABLET PO SCH (12:11)
[2024-09-22] MEDS: FINASTERIDE 5 MG TABLET PO SCH (12:12)
[2024-09-22] MEDS ORDERED: ATORVASTATIN 10 MG TABLET PO SCH (21:00)
[2024-09-22] MEDS ORDERED: PHENYTOIN ER 100 MG CAPSULE PO SCH (21:00)
[2024-09-22] MEDS ORDERED: PHENYTOIN SODIUM 100 MG PO SCH (21:00)
== END 2024-09-22 13:10 | disposition home or self-care (01) | DRG 194 ==
LOC: ED 23:20 → MS2 09-22 03:49
PROVIDERS: ADMIT Internal Medicine; ATTEND Internal Medicine
DX: Z79.82 Long term (current) use of aspirin; N30.01 Acute cystitis with hematuria; G40.909 Epilepsy, unspecified, not intractable, without status epilepticus; R65.20 Severe sepsis without septic shock; D64.9 Anemia, unspecified; E11.9 Type 2 diabetes mellitus without complications; I10 Essential (primary) hypertension; N40.0 Benign prostatic hyperplasia without lower urinary tract symptoms; J18.9 Pneumonia, unspecified organism; E83.42 Hypomagnesemia; E78.5 Hyperlipidemia, unspecified; N39.0 Urinary tract infection, site not specified; Z87.820 Personal history of traumatic brain injury; Z79.84 Long term (current) use of oral hypoglycemic drugs; N28.9 Disorder of kidney and ureter, unspecified; R05.9 Cough, unspecified; I25.10 Atherosclerotic heart disease of native coronary artery without angina pectoris; R07.9 Chest pain, unspecified; Z79.899 Other long term (current) drug therapy; A41.9 Sepsis, unspecified organism; R94.31 Abnormal electrocardiogram [ECG] [EKG]